=== PATIENT | female | born 1980 | race Caucasian/White ===

== ENCOUNTER → 2018-10-28 | Outpatient (CLI) | payer OTHER ==
[~2018-10-28] MED LIST: DCS100C PO; HYDR-34 PO; HYDR-3720 PO; IBP800T PO; PHEN37.555 PO; PNT40TEC PO; PRD20T PO
[2018-10-28 08:18] LABS: BASOPHILS % (AUTO) 0 % (0-10); EOSINOPHILS # (AUTO) 0.1 10^3/uL (0.0-0.3); EOSINOPHILS % (AUTO) 2 % (0-10); HEMATOCRIT 38 % (35-52); LYMPHOCYTES # (AUTO) 1.4 X 10^3 (1.0-4.0); LYMPHOCYTES % (AUTO) 30 % (12-44); MEAN CORPUSCULAR HEMOGLOBIN 31 PG (25-34); MEAN CORPUSCULAR HGB CONC 34 G/DL (32-36); MEAN CORPUSCULAR VOLUME 91 FL (80-99); MEAN PLATELET VOLUME 9.7 FL (7.4-10.4); MONOCYTES # (AUTO) 0.3 X 10^3 (0.0-1.0); MONOCYTES % (AUTO) 6 % (0-12); NEUTROPHILS # (AUTO) 2.9 X 10^3 (1.8-7.8); NEUTROPHILS % (AUTO) 61 % (42-75); PLATELET COUNT 298 10^3/uL (130-400); RED BLOOD COUNT 4.17 10^6/uL (4.35-5.85); RED CELL DISTRIBUTION WIDTH 12.6 % (10.0-14.5); WHITE BLOOD COUNT 4.8 10^3/uL (4.3-11.0)
[2018-10-28 08:36] LABS: ALANINE AMINOTRANSFERASE 8 U/L (0-55); ALBUMIN 4.3 GM/DL (3.2-4.5); ALKALINE PHOSPHATASE 112 U/L (40-136); BILIRUBIN,TOTAL 0.6 MG/DL (0.1-1.0); BUN/CREATININE RATIO 15; CALCIUM 9.6 MG/DL (8.5-10.1); CARBON DIOXIDE 23 MMOL/L (21-32); CHLORIDE 105 MMOL/L (98-107); CHOLESTEROL 280 MG/DL (< 200); CREATININE SERUM 0.67 MG/DL (0.60-1.30); GFR ESTIMATED > 60; GLUCOSE 98 MG/DL (70-105); HDL CHOLESTEROL 58 MG/DL (40-60); SODIUM 138 MMOL/L (135-145); TOTAL PROTEIN 7.4 GM/DL (6.4-8.2); TRIGLYCERIDES 174 MG/DL (<150); VLDL CHOLESTEROL 35 MG/DL (5-40)
== END ==
LOC: LAB 08:03
PROVIDERS: ATTEND Nurse Practitioner Family
DX: Z00.00 Encounter for general adult medical examination without abnormal findings (principal); E78.5 Hyperlipidemia, unspecified
CPT/HCPCS: 36415; 80053; 80061; 85025

== ENCOUNTER 2019-06-25 10:06 | Outpatient (CLI) | payer OTHER ==
[~2019-06-25] VITALS: Ht 157.5 cm; Wt 76.7 kg
[2019-06-25] MEDS ORDERED: HYDR-3812 PO (10:22)
[2019-06-25] MEDS ORDERED: PREG100C PO (10:22)
[2019-06-25 10:26] VITALS: BP 126/83
== END 2019-06-25 14:53 | disposition home or self-care (01) ==
LOC: PREOP 10:06
PROVIDERS: ATTEND Podiatrist
CPT/HCPCS: 87081

== ENCOUNTER 2019-07-01 05:57 | Inpatient (IN) | payer BC, OTHER ==
[~2019-07-01] VITALS: Ht 157.5 cm; Wt 75.4 kg
[2019-07-01] VITALS (10 sets, daily range): BP systolic 103–135; BP diastolic 47–84
[~2019-07-01 05:57] MED LIST changes: +HYDR-3812 PO; +PREG100C PO
--- OUTSIDE RECORDS SUMMARY | 2019-07-01 06:04 | XMS REPORT | CCD ---
Author Author [facility] Address [address] [place] [address] Phone Care Team Providers Care Pleat Taper Name Role Phone PP Unavailable CCM Unavailable Summary Purpose Interface Exchange Insurance Providers Payer name Policy type / Coverage type Covered green party ID Effective Begin Date Effective End Date [employer] [id number] 2018 Unknown Family history Father Diagnosis Age At Onset Diabetes Unknown Hyperlipidemia Unknown Hypertension Unknown Heart Attack Unknown Social History Social History Element Codes Description Effective Dates Marital status Unknown CJ 06/12/2016 Number of children Unknown 3 06/12/[address]: 819522206 Never smoker 06/12/[address]: 902913907 Never drinks alcohol 06/12/2016 Allergies, Adverse Reactions, Alerts Substance Reaction Codes Entered Date Inactivated Date Status * NO KNOWN DRUG ALLERGIES Unknown 06/12/2016 No Inactive Date Active Past Medical History Illness Codes Condition Status Onset Date Resolved Date 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.2 ICD-10: K12.0 Active 02/23/2019 Unknown Chronic pain syndrome ICD- 9: 338.4 ICD-10: G89.4 Active 04/24/2017 Unknown Overweight ICD-9: 278.02 ICD-10: E66.3 Active 11/27/2018 Unknown Menopausal and female climacteric states ICD-9: 627.2 ICD-10: N95.1 Active 04/24/2017 Unknown Generalized anxiety disorder ICD-9: 300.02 ICD-10: F41.1 Active 08/23/2016 Unknown Major depressive disorder, single episode, moderate ICD-9: 296.22 ICD-10: F32.1 Active 06/11/2016 Unknown Cellulitis of right lower limb ICD-9: 682.7 ICD-10: L03.115 Active 05/27/2017 Unknown Encounter for gynecological examination (general) (routine) without abnormal findings ICD-9: V72.31 ICD-10: Z01.419 Active 03/27/2017 Unknown Other fatigue ICD-9: 780.79 ICD-10: R53.83 Active 08/23/2016 Unknown Problems Condition Codes Effective Dates Condition Status 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.2 ICD-10: K12.0 02/23/2019 Active Chronic pain syndrome ICD- 9: 338.4 ICD-10: G89.4 04/24/2017 Active Overweight ICD-9: 278.02 ICD-10: E66.3 11/27/2018 Active Menopausal and female climacteric states ICD-9: 627.2 ICD-10: N95.1 04/24/2017 Active Generalized anxiety disorder ICD-9: 300.02 ICD-10: F41.1 08/23/2016 Active Major depressive disorder, single episode, moderate ICD-9: 296.22 ICD-10: F32.1 06/11/2016 Active Cellulitis of right lower limb ICD-9: 682.7 ICD-10: L03.115 05/27/2017 Active Encounter for gynecological examination (general) (routine) without abnormal findings ICD-9: V72.31 ICD-10: Z01.419 03/27/2017 Active Other fatigue ICD-9: 780.79 ICD-10: R53.83 08/23/2016 Active Medications Medication Codes Instructions Start Date Stop Date Status Fill Instructions hydrocodone 5 mg-acetaminophen 325 mg tablet RxNorm: 101198 1-1.5 Tablet(s) PO QID as needed 06/19/2019 07/18/2019 Active Lyrica 100 mg capsule RxNorm: 911826 1 Capsule(s) PO BID as needed 06/11/2019 08/09/2019 Active ibuprofen 800 mg tablet RxNorm: 148102 TAKE 1 TABLET BY MOUTH THREE TIMES DAILY NEEDED 06/10/2019 No Stop Date Active hydrocodone 5 mg-acetaminophen 325 mg tablet RxNorm: 447143 1-1.5 Tablet(s) PO QID as needed 05/20/2019 06/17/2019 Inactive cyclobenzaprine 5 mg tablet RxNorm: 343491 TAKE 1 TABLET BY MOUTH THREE TIMES DAILY NEEDED FOR MUSCLE SPASM 05/18/2019 No Stop Date Active cyclobenzaprine 5 mg tablet RxNorm: 272777 TAKE 1 TABLET BY MOUTH THREE TIMES DAILY NEEDED FOR MUSCLE SPASM 04/24/2019 05/17/2019 Inactive hydrocodone 5 mg-acetaminophen 325 mg tablet RxNorm: 055937 1-1.5 Tablet(s) PO QID as needed 04/21/2019 05/18/2019 Inactive Lexapro 10 mg tablet RxNorm: 813166 TAKE 1 TABLET BY MOUTH ONCE DAILY 03/30/2019 No Stop Date Active hydrocodone 5 mg-acetaminophen 325 mg tablet RxNorm: 162659 1-1.5 Tablet(s) PO QID as needed 03/23/2019 04/20/2019 Inactive prednisolone 15 mg/5 mL oral solution RxNorm: 710700 5 Milliliter(s) PO BID 02/23/2019 02/27/2019 Inactive valacyclovir 1 gram tablet RxNorm: 287214 1 Tablet(s) PO TID 02/23/2019 03/01/2019 Inactive hydrocodone 5 mg-acetaminophen 325 mg tablet RxNorm: 859610 1-1.5 Tablet(s) PO QID as needed 02/23/2019 03/22/2019 Inactive hydrocodone 5 mg-acetaminophen 325 mg tablet RxNorm: 434763 1-1.5 Tablet(s) PO QID as needed 01/28/2019 02/26/2019 Inactive hydrocodone 5 mg-acetaminophen 325 mg tablet RxNorm: 437252 1-1.5 Tablet(s) PO QID as needed 01/01/2019 01/27/2019 Inactive cyclobenzaprine 5 mg tablet RxNorm: 494274 TAKE ONE TABLET BY MOUTH THREE TIMES DAILY NEEDED FOR MUSCLE SPASM 12/16/2018 04/23/2019 Inactive phentermine 37.5 mg tablet RxNorm: 400317 1 Tablet(s) PO daily 11/27/2018 No Stop Date Active Lexapro 10 mg tablet RxNorm: 053439 TAKE 1 TABLET BY MOUTH ONCE DAILY 11/26/2018 03/29/2019 Inactive cyclobenzaprine 5 mg tablet RxNorm: 928550 TAKE ONE TABLET BY MOUTH THREE TIMES DAILY NEEDED FOR MUSCLE SPASM 11/12/2018 12/15/2018 Inactive hydrocodone 5 mg-acetaminophen 325 mg tablet RxNorm: 397722 1-1.5 Tablet(s) PO QID as needed 11/06/2018 12/05/2018 Inactive Lyrica 100 mg capsule RxNorm: 278562 1 Capsule(s) PO BID as needed 10/31/2018 01/27/2019 Inactive pravastatin 20 mg tablet RxNorm: 201353 1 Tablet(s) PO QPM 10/28/2018 02/24/2019 Inactive pravastatin 20 mg tablet RxNorm: 111625 1 Tablet(s) PO QPM 10/28/2018 10/27/2018 Inactive EEMT 1.25 mg-2.5 mg tablet RxNorm: 375584 1 Tablet(s) PO daily 10/09/2018 01/06/2019 Inactive norethindrone acetate 1 mg-ethinyl estradiol 20 mcg tablet RxNorm: 2326176 1 Tablet(s) PO daily 10/09/2018 10/03/2019 Active hydrocodone 5 mg-acetaminophen 325 mg tablet RxNorm: 879986 1-1.5 Tablet(s) PO QID as needed 10/09/2018 11/05/2018 Inactive hydrocodone 5 mg-acetaminophen 325 mg tablet RxNorm: 075269 1-1.5 Tablet(s) PO QID as needed 09/11/2018 10/08/2018 Inactive phentermine 37.5 mg tablet RxNorm: 060733 1 Tablet(s) PO daily 08/29/2018 11/26/2018 Inactive cyclobenzaprine 5 mg tablet RxNorm: 215635 TAKE ONE TABLET BY MOUTH THREE TIMES DAILY NEEDED FOR MUSCLE SPASM 08/27/2018 11/11/2018 Inactive hydrocodone 5 mg-acetaminophen 325 mg tablet RxNorm: 690397 1-1.5 Tablet(s) PO QID as needed 08/14/2018 09/10/2018 Inactive Lexapro 10 mg tablet RxNorm: 302582 1 Tablet(s) PO daily 07/18/2018 08/16/2018 Inactive diazepam 10 mg tablet RxNorm: 822965 1 Tablet(s) PO TID as needed anxiety 07/11/2018 07/14/2018 Inactive Zorvolex 35 mg capsule RxNorm: 4718000 1 Capsule(s) PO TID 06/18/2018 No Stop Date Active hydrocodone 5 mg-acetaminophen 325 mg tablet RxNorm: 345457 1-1.5 Tablet(s) PO QID as needed 06/18/2018 07/17/2018 Inactive cyclobenzaprine 5 mg tablet RxNorm: 360120 TAKE ONE TABLET BY MOUTH THREE TIMES DAILY NEEDED FOR MUSCLE SPASM 06/04/2018 08/26/2018 Inactive hydrocodone 5 mg-acetaminophen 325 mg tablet RxNorm: 251922 1-1.5 Tablet(s) PO QID as needed 05/26/2018 06/17/2018 Inactive cyclobenzaprine 5 mg tablet RxNorm: 590301 TAKE ONE TABLET BY MOUTH THREE TIMES DAILY NEEDED FOR MUSCLE SPASM 05/07/2018 06/03/2018 Inactive hydrocodone 5 mg-acetaminophen 325 mg tablet RxNorm: 995517 1-1.5 Tablet(s) PO QID as needed 04/28/2018 05/25/2018 Inactive ibuprofen 800 mg tablet RxNorm: 053257 TAKE ONE TABLET BY MOUTH THREE TIMES DAILY NEEDED 04/28/2018 06/09/2019 Inactive diazepam 10 mg tablet RxNorm: 772925 1 Tablet(s) PO TID as needed anxiety 04/22/2018 06/19/2018 Inactive hydrocodone 5 mg-acetaminophen 325 mg tablet RxNorm: 612513 1-1.5 Tablet(s) PO QID as needed 03/25/2018 04/23/2018 Inactive cyclobenzaprine 5 mg tablet RxNorm: 322776 TAKE ONE TABLET BY MOUTH THREE TIMES DAILY NEEDED FOR MUSCLE SPASM 03/17/2018 05/06/2018 Inactive hydrocodone 5 mg-acetaminophen 325 mg tablet RxNorm: 866683 1-1.5 Tablet(s) PO QID as needed 03/02/2018 03/24/2018 Inactive phentermine 37.5 mg tablet RxNorm: 479015 1 Tablet(s) PO daily 03/02/2018 08/28/2018 Inactive hydrocodone 5 mg-acetaminophen 325 mg tablet RxNorm: 408173 1-1.5 Tablet(s) PO QID as needed 02/03/2018 03/01/2018 Inactive diazepam 10 mg tablet RxNorm: 195182 1 Tablet(s) PO TID as needed anxiety 01/01/2018 02/28/2018 Inactive hydrocodone 5 mg-acetaminophen 325 mg tablet RxNorm: 974719 1-1.5 Tablet(s) PO QID as needed 12/09/2017 01/07/2018 Inactive ibuprofen 800 mg tablet RxNorm: 034571 1 Tablet(s) PO TID as needed 12/09/2017 01/07/2018 Inactive Lyrica 100 mg capsule RxNorm: 640945 1 Capsule(s) PO BID as needed 12/09/2017 03/07/2018 Inactive cyclobenzaprine 5 mg tablet RxNorm: 085718 TAKE ONE TABLET BY MOUTH THREE TIMES DAILY NEEDED FOR MUSCLE SPASM 12/03/2017 03/16/2018 Inactive hydrocodone 5 mg-acetaminophen 325 mg tablet RxNorm: 580850 1-1.5 Tablet(s) PO QID as needed 10/21/2017 11/19/2017 Inactive hydrocodone 7.5 mg-acetaminophen 325 mg tablet RxNorm: 357856 1 Tablet(s) PO QID as needed 09/26/2017 10/20/2017 Inactive phentermine 37.5 mg tablet RxNorm: 160049 1 Tablet(s) PO daily 09/26/2017 10/01/2017 Inactive Lyrica 100 mg capsule RxNorm: 198439 1 Capsule(s) PO BID as needed 09/12/2017 12/08/2017 Inactive hydrocodone 7.5 mg-acetaminophen 325 mg tablet RxNorm: 701138 1 Tablet(s) PO QID as needed 08/27/2017 09/23/2017 Inactive Belviq XR 20 mg tablet,extended release RxNorm: 3344906 1 Tablet(s) PO daily 08/27/2017 09/23/2017 Inactive cyclobenzaprine 5 mg tablet RxNorm: 564745 1 Tablet(s) PO TID as needed muscle spasms 08/19/2017 08/23/2017 Inactive hydrocodone 7.5 mg-acetaminophen 325 mg tablet RxNorm: 932207 1 Tablet(s) PO QID as needed 08/02/2017 08/26/2017 Inactive hydrocodone 7.5 mg-acetaminophen 325 mg tablet RxNorm: 396021 1 Tablet(s) PO TID as needed 08/02/2017 08/01/2017 Inactive diazepam 10 mg tablet RxNorm: 031720 1 Tablet(s) PO TID as needed anxiety 07/24/2017 02/02/2018 Inactive hydrocodone 7.5 mg-acetaminophen 325 mg tablet RxNorm: 946211 1 Tablet(s) PO TID as needed 07/11/2017 08/01/2017 Inactive hydrocodone 5 mg-acetaminophen 325 mg tablet RxNorm: 836122 1 Tablet(s) PO TID 06/24/2017 07/30/2017 Inactive Lyrica 100 mg capsule RxNorm: 822118 1 Capsule(s) PO BID as needed 06/24/2017 06/10/2019 Inactive prednisone 10 mg tablet RxNorm: 324700 1 Tablet(s) PO daily 06/18/2017 06/17/2017 Inactive 6-5-4-3-2-1 then stop prednisone 10 mg tablet RxNorm: 754355 1 Tablet(s) PO daily 06/18/2017 08/25/2017 Inactive 6-5-4-3-2-1 then stop Bactrim DS 800 mg-160 mg tablet RxNorm: 995700 1 Tablet(s) PO BID 06/11/2017 06/14/2017 Inactive Bactrim DS 800 mg-160 mg tablet RxNorm: 801693 1 Tablet(s) PO BID 06/03/2017 06/10/2017 Inactive mupirocin 2 % topical ointment RxNorm: 187914 1 Application TOP BID 06/03/2017 08/25/2017 Inactive Lyrica 100 mg capsule RxNorm: 067946 1 Capsule(s) PO BID as needed 05/27/2017 06/23/2017 Inactive Keflex 500 mg capsule RxNorm: 505138 1 Capsule(s) PO TID 05/27/2017 06/02/2017 Inactive Lexapro 10 mg tablet RxNorm: 449605 1 Tablet(s) PO daily 05/27/2017 08/25/2017 Inactive hydrocodone 5 mg-acetaminophen 325 mg tablet RxNorm: 216916 1 Tablet(s) PO TID 05/27/2017 06/23/2017 Inactive hydrocodone 7.5 mg-acetaminophen 325 mg tablet RxNorm: 976132 1 Tablet(s) PO TID as needed 05/13/2017 05/25/2017 Inactive hydrocodone 7.5 mg-acetaminophen 325 mg tablet RxNorm: 833928 1 Tablet(s) PO TID as needed 05/13/2017 05/12/2017 Inactive cyclobenzaprine 5 mg tablet RxNorm: 523155 TAKE ONE TABLET BY MOUTH THREE TIMES DAILY NEEDED FOR MUSCLE SPASM 05/01/2017 05/05/2017 Inactive hydrocodone 5 mg-acetaminophen 325 mg tablet RxNorm: 256589 1 Tablet(s) PO TID as needed 04/24/2017 05/12/2017 Inactive cyclobenzaprine 5 mg tablet RxNorm: 349493 1 Tablet(s) PO TID as needed muscle spasms 04/24/2017 04/28/2017 Inactive diazepam 10 mg tablet RxNorm: 113893 1 Tablet(s) PO TID as needed anxiety 02/22/2017 04/19/2017 Inactive norethindrone acetate 1 mg-ethinyl estradiol 20 mcg tablet RxNorm: 9999469 1 Tablet(s) PO daily 12/18/2016 07/15/2017 Inactive EEMT 1.25 mg-2.5 mg tablet RxNorm: 251702 1 Tablet(s) PO daily 12/06/2016 03/05/2017 Inactive EEMT 1.25 mg-2.5 mg tablet RxNorm: 249824 1 Tablet(s) PO daily 12/06/2016 12/05/2016 Inactive Lexapro 10 mg tablet RxNorm: 242235 1 Tablet(s) PO daily 12/06/2016 05/04/2017 Inactive diazepam 10 mg tablet RxNorm: 337083 1 Tablet(s) PO TID 11/09/2016 12/07/2016 Inactive phentermine 37.5 mg tablet RxNorm: 033193 1 Tablet(s) PO daily 10/25/2016 08/23/2017 Inactive EEMT 1.25 mg-2.5 mg tablet RxNorm: 785403 1 Tablet(s) PO daily 10/25/2016 12/05/2016 Inactive phentermine 37.5 mg tablet RxNorm: 265888 1 Tablet(s) PO daily 09/20/2016 10/24/2016 Inactive Lexapro 10 mg tablet RxNorm: 658677 1 Tablet(s) PO daily 07/10/2016 12/05/2016 Inactive Lexapro 10 mg tablet RxNorm: 081608 1 Tablet(s) PO daily 06/12/2016 07/09/2016 Inactive norethindrone acetate 1 mg-ethinyl estradiol 20 mcg tablet RxNorm: 8611218 1 Tablet(s) PO daily 06/12/2016 12/17/2016 Inactive hydrocodone 10 mg-acetaminophen 325 mg tablet RxNorm: 666489 1 Tablet(s) PO TID No Start Date 05/12/2017 Inactive phentermine 37.5 mg tablet RxNorm: 956726 1 Tablet(s) PO daily No Start Date 09/19/2016 Inactive norethindrone acetate 1 mg-ethinyl estradiol 20 mcg tablet RxNorm: 0773738 1 Tablet(s) PO daily No Start Date 06/11/2016 Inactive EEMT 1.25 mg-2.5 mg tablet RxNorm: 835104 1 Tablet(s) PO daily No Start Date 10/24/2016 Inactive Medication Administered No Medication Administered data Immunizations No Immunization data Assessments Condition Codes Effective Dates Recurrent oral aphthae ICD-10: K12.0 ICD-9: 528.2 02/23/2019 Chronic pain syndrome ICD-10: G89.4 ICD-9: 338.4 12/08/2018 Overweight ICD-10: E66.3 ICD-9: 278.02 11/27/2018 Menopausal and female climacteric states ICD-10: N95.1 ICD-9: 627.2 10/09/2018 Generalized anxiety disorder ICD-10: F41.1 ICD-9: 300.02 07/18/2018 Major depressive disorder, single episode, moderate ICD-10: F32.1 ICD-9: 296.22 07/18/2018 Cellulitis of right lower limb ICD-10: L03.115 ICD-9: 682.7 06/03/2017 Encounter for gynecological examination (general) (routine) without abnormal findings ICD-10: Z01.419 ICD-9: V72.31 03/27/2017 Other fatigue ICD-10: R53.83 ICD-9: 780.79 08/24/2016 Reason For Visit Reason For Visit Effective Dates Notes oral lesion 02/23/2019 medication follow up 12/08/2018 hydrocodone medication follow up 10/09/2018 anxiety 07/18/2018 medication follow up 06/18/2018 hydrocodone ankle pain 02/28/2018 medication follow up 12/09/2017 hydrocodone medication follow up 10/21/2017 medication follow up 08/27/2017 medication follow up 05/27/2017 medication follow up 04/24/2017 well woman exam (18-39 years) 03/27/2017 medication follow up 10/25/2016 weight gain/obesity 08/24/2016 depression 06/12/2016 Results No Results data Review of Systems System Result Effective Dates Constitutional No recent illness 02/23/2019 Constitutional No chills 02/23/2019 Constitutional No fever 02/23/2019 Constitutional No diaphoresis 02/23/2019 Eyes No eye erythema 02/23/2019 Ears/Nose/Throat/Neck No nasal discharge 02/23/2019 Cardiovascular No chest pain/pressure 02/23/2019 Cardiovascular No dyspnea 02/23/2019 Respiratory No cough 02/23/2019 Dermatologic No rash 02/23/2019 Ears/Nose/Throat/Neck oral lesion 02/23/2019 Neurologic No alteration of consciousness 02/23/2019 Neurologic No mental status change 02/23/2019 Constitutional No recent illness 12/08/2018 Constitutional No chills 12/08/2018 Constitutional No diaphoresis 12/08/2018 Constitutional No fever 12/08/2018 Constitutional No malaise 12/08/2018 Eyes No eye erythema 12/08/2018 Ears/Nose/Throat/Neck No nasal allergies 12/08/2018 Ears/Nose/Throat/Neck No nasal discharge 12/08/2018 Cardiovascular No chest pain/pressure 12/08/2018 Cardiovascular No dyspnea 12/08/2018 Respiratory No chest congestion 12/08/2018 Respiratory No cough 12/08/2018 Respiratory No dyspnea 12/08/2018 Gastrointestinal No abdominal pain 12/08/2018 Gastrointestinal No constipation 12/08/2018 Gastrointestinal No diarrhea 12/08/2018 Musculoskeletal arthralgia(s) 12/08/2018 Dermatologic No rash 12/08/2018 Neurologic No alteration of consciousness 12/08/2018 Neurologic No mental status change 12/08/2018 Constitutional No recent illness 10/09/2018 Constitutional No chills 10/09/2018 Constitutional No diaphoresis 10/09/2018 Constitutional No fever 10/09/2018 Constitutional night sweats 10/09/2018 Eyes No eye erythema 10/09/2018 Ears/Nose/Throat/Neck No nasal discharge 10/09/2018 Cardiovascular No chest pain/pressure 10/09/2018 Cardiovascular No dyspnea 10/09/2018 Respiratory No cough 10/09/2018 Gastrointestinal No abdominal pain 10/09/2018 Genitourinary/Nephrology menopausal symptoms 10/09/2018 Musculoskeletal joint complaint 10/09/2018 Dermatologic No rash 10/09/2018 Neurologic No alteration of consciousness 10/09/2018 Neurologic No mental status change 10/09/2018 Constitutional No recent illness 07/18/2018 Constitutional No chills 07/18/2018 Constitutional No diaphoresis 07/18/2018 Constitutional No fever 07/18/2018 Eyes No eye erythema 07/18/2018 Ears/Nose/Throat/Neck No nasal discharge 07/18/2018 Cardiovascular No chest pain/pressure 07/18/2018 Respiratory No cough 07/18/2018 Respiratory No chest congestion 07/18/2018 Gastrointestinal No abdominal pain 07/18/2018 Musculoskeletal joint complaint 07/18/2018 Musculoskeletal arthralgia(s) 07/18/2018 Dermatologic No rash 07/18/2018 Neurologic No alteration of consciousness 07/18/2018 Neurologic No mental status change 07/18/2018 Constitutional No recent illness 06/18/2018 Constitutional No chills 06/18/2018 Constitutional No diaphoresis 06/18/2018 Constitutional No fever 06/18/2018 Constitutional No malaise 06/18/2018 Eyes No eye erythema 06/18/2018 Ears/Nose/Throat/Neck No nasal allergies 06/18/2018 Ears/Nose/Throat/Neck No nasal discharge 06/18/2018 Cardiovascular No chest pain/pressure 06/18/2018 Cardiovascular No dyspnea 06/18/2018 Respiratory No chest congestion 06/18/2018 Respiratory No cough 06/18/2018 Respiratory No dyspnea 06/18/2018 Gastrointestinal No abdominal pain 06/18/2018 Gastrointestinal No constipation 06/18/2018 Gastrointestinal No diarrhea 06/18/2018 Musculoskeletal arthralgia(s) 06/18/2018 Dermatologic No rash 06/18/2018 Neurologic No alteration of consciousness 06/18/2018 Neurologic No mental status change 06/18/2018 Constitutional No recent illness 02/28/2018 Constitutional No chills 02/28/2018 Constitutional No diaphoresis 02/28/2018 Constitutional No fever 02/28/2018 Constitutional No malaise 02/28/2018 Eyes No eye erythema 02/28/2018 Ears/Nose/Throat/Neck No nasal allergies 02/28/2018 Ears/Nose/Throat/Neck No nasal discharge 02/28/2018 Cardiovascular No chest pain/pressure 02/28/2018 Cardiovascular No dyspnea 02/28/2018 Respiratory No chest congestion 02/28/2018 Respiratory No cough 02/28/2018 Respiratory No dyspnea 02/28/2018 Gastrointestinal No abdominal pain 02/28/2018 Gastrointestinal No constipation 02/28/2018 Gastrointestinal No diarrhea 02/28/2018 Musculoskeletal arthralgia(s) 02/28/2018 Dermatologic No rash 02/28/2018 Neurologic No alteration of consciousness 02/28/2018 Neurologic No mental status change 02/28/2018 Constitutional No recent illness 12/09/2017 Constitutional No chills 12/09/2017 Constitutional No diaphoresis 12/09/2017 Constitutional No fever 12/09/2017 Constitutional No malaise 12/09/2017 Eyes No eye erythema 12/09/2017 Ears/Nose/Throat/Neck No nasal allergies 12/09/2017 Ears/Nose/Throat/Neck No nasal discharge 12/09/2017 Cardiovascular No chest pain/pressure 12/09/2017 Cardiovascular No dyspnea 12/09/2017 Respiratory No chest congestion 12/09/2017 Respiratory No cough 12/09/2017 Respiratory No dyspnea 12/09/2017 Gastrointestinal No abdominal pain 12/09/2017 Gastrointestinal No constipation 12/09/2017 Gastrointestinal No diarrhea 12/09/2017 Musculoskeletal arthralgia(s) 12/09/2017 Dermatologic No rash 12/09/2017 Neurologic No alteration of consciousness 12/09/2017 Neurologic No mental status change 12/09/2017 Constitutional No recent illness 10/21/2017 Constitutional No chills 10/21/2017 Constitutional No diaphoresis 10/21/2017 Constitutional No fever 10/21/2017 Constitutional No malaise 10/21/2017 Eyes No eye erythema 10/21/2017 Ears/Nose/Throat/Neck No nasal allergies 10/21/2017 Ears/Nose/Throat/Neck No nasal discharge 10/21/2017 Cardiovascular No chest pain/pressure 10/21/2017 Cardiovascular No dyspnea 10/21/2017 Respiratory No chest congestion 10/21/2017 Respiratory No cough 10/21/2017 Respiratory No dyspnea 10/21/2017 Gastrointestinal No abdominal pain 10/21/2017 Gastrointestinal No constipation 10/21/2017 Gastrointestinal No diarrhea 10/21/2017 Musculoskeletal arthralgia(s) 10/21/2017 Dermatologic No rash 10/21/2017 Neurologic No alteration of consciousness 10/21/2017 Neurologic No mental status change 10/21/2017 Constitutional No fatigue 10/21/2017 Constitutional No recent illness 08/27/2017 Constitutional No chills 08/27/2017 Constitutional No diaphoresis 08/27/2017 Constitutional No fever 08/27/2017 Eyes No eye erythema 08/27/2017 Ears/Nose/Throat/Neck No nasal allergies 08/27/2017 Ears/Nose/Throat/Neck No nasal discharge 08/27/2017 Cardiovascular No chest pain/pressure 08/27/2017 Cardiovascular No dyspnea 08/27/2017 Respiratory No chest congestion 08/27/2017 Respiratory No cough 08/27/2017 Respiratory No dyspnea 08/27/2017 Gastrointestinal No abdominal pain 08/27/2017 Musculoskeletal arthralgia(s) 08/27/2017 Neurologic No alteration of consciousness 08/27/2017 Neurologic No mental status change 08/27/2017 Constitutional No malaise 08/27/2017 Constitutional No fatigue 08/27/2017 Constitutional No night sweats 08/27/2017 Gastrointestinal No constipation 08/27/2017 Gastrointestinal No diarrhea 08/27/2017 Dermatologic No rash 08/27/2017 Constitutional No recent illness 05/27/2017 Constitutional No chills 05/27/2017 Constitutional No diaphoresis 05/27/2017 Constitutional No fever 05/27/2017 Eyes No eye erythema 05/27/2017 Ears/Nose/Throat/Neck No nasal allergies 05/27/2017 Ears/Nose/Throat/Neck No nasal discharge 05/27/2017 Cardiovascular No chest pain/pressure 05/27/2017 Cardiovascular No dyspnea 05/27/2017 Respiratory No chest congestion 05/27/2017 Respiratory No cough 05/27/2017 Respiratory No dyspnea 05/27/2017 Gastrointestinal No abdominal pain 05/27/2017 Musculoskeletal arthralgia(s) 05/27/2017 Neurologic No alteration of consciousness 05/27/2017 Neurologic No mental status change 05/27/2017 Dermatologic erythema 05/27/2017 Constitutional No recent illness 04/24/2017 Constitutional No chills 04/24/2017 Constitutional No diaphoresis 04/24/2017 Constitutional No fever 04/24/2017 Eyes No eye erythema 04/24/2017 Ears/Nose/Throat/Neck No nasal allergies 04/24/2017 Ears/Nose/Throat/Neck No nasal discharge 04/24/2017 Cardiovascular No chest pain/pressure 04/24/2017 Cardiovascular No dyspnea 04/24/2017 Respiratory No cough 04/24/2017 Respiratory No dyspnea 04/24/2017 Respiratory No chest congestion 04/24/2017 Gastrointestinal No abdominal pain 04/24/2017 Musculoskeletal arthralgia(s) 04/24/2017 Dermatologic No rash 04/24/2017 Neurologic No alteration of consciousness 04/24/2017 Neurologic No mental status change 04/24/2017 Constitutional No recent illness 03/27/2017 Constitutional No chills 03/27/2017 Constitutional No diaphoresis 03/27/2017 Constitutional No fever 03/27/2017 Eyes No eye erythema 03/27/2017 Ears/Nose/Throat/Neck No nasal allergies 03/27/2017 Ears/Nose/Throat/Neck No nasal discharge 03/27/2017 Cardiovascular No chest pain/pressure 03/27/2017 Respiratory No dyspnea 03/27/2017 Gastrointestinal No abdominal pain 03/27/2017 Genitourinary/Nephrology No breast complaint 03/27/2017 Genitourinary/Nephrology No dysuria 03/27/2017 Dermatologic No rash 03/27/2017 Neurologic No alteration of consciousness 03/27/2017 Neurologic No mental status change 03/27/2017 Constitutional No recent illness 10/25/2016 Constitutional No fever 10/25/2016 Eyes No eye erythema 10/25/2016 Ears/Nose/Throat/Neck No nasal allergies 10/25/2016 Ears/Nose/Throat/Neck No nasal discharge 10/25/2016 Cardiovascular No chest pain/pressure 10/25/2016 Cardiovascular No dyspnea 10/25/2016 Respiratory No chest congestion 10/25/2016 Respiratory No cough 10/25/2016 Respiratory No dyspnea 10/25/2016 Dermatologic No rash 10/25/2016 Neurologic No alteration of consciousness 10/25/2016 Neurologic No mental status change 10/25/2016 Constitutional No recent illness 08/24/2016 Constitutional No chills 08/24/2016 Constitutional No diaphoresis 08/24/2016 Constitutional No fever 08/24/2016 Eyes No eye erythema 08/24/2016 Ears/Nose/Throat/Neck No nasal allergies 08/24/2016 Ears/Nose/Throat/Neck No nasal discharge 08/24/2016 Ears/Nose/Throat/Neck No otalgia 08/24/2016 Ears/Nose/Throat/Neck No postnasal drip 08/24/2016 Ears/Nose/Throat/Neck No sinus congestion 08/24/2016 Cardiovascular No chest pain/pressure 08/24/2016 Cardiovascular No dyspnea 08/24/2016 Cardiovascular No edema 08/24/2016 Respiratory No chest congestion 08/24/2016 Respiratory No cough 08/24/2016 Respiratory No dyspnea 08/24/2016 Gastrointestinal No abdominal pain 08/24/2016 Gastrointestinal No constipation 08/24/2016 Gastrointestinal No diarrhea 08/24/2016 Gastrointestinal No nausea 08/24/2016 Gastrointestinal No vomiting 08/24/2016 Musculoskeletal No joint complaint 08/24/2016 Dermatologic No rash 08/24/2016 Dermatologic No sores 08/24/2016 Neurologic No alteration of consciousness 08/24/2016 Neurologic No mental status change 08/24/2016 Psychiatric anxiety 08/24/2016 Psychiatric depression 08/24/2016 Constitutional No recent illness 06/12/2016 Constitutional No chills 06/12/2016 Constitutional No diaphoresis 06/12/2016 Constitutional No fever 06/12/2016 Eyes No eye erythema 06/12/2016 Ears/Nose/Throat/Neck No nasal allergies 06/12/2016 Ears/Nose/Throat/Neck No nasal discharge 06/12/2016 Ears/Nose/Throat/Neck No otalgia 06/12/2016 Ears/Nose/Throat/Neck No postnasal drip 06/12/2016 Ears/Nose/Throat/Neck No sinus congestion 06/12/2016 Cardiovascular No chest pain/pressure 06/12/2016 Cardiovascular No dyspnea 06/12/2016 Cardiovascular No edema 06/12/2016 Respiratory No chest congestion 06/12/2016 Respiratory No cough 06/12/2016 Respiratory No dyspnea 06/12/2016 Gastrointestinal No abdominal pain 06/12/2016 Gastrointestinal No constipation 06/12/2016 Gastrointestinal No diarrhea 06/12/2016 Gastrointestinal No nausea 06/12/2016 Gastrointestinal No vomiting 06/12/2016 Musculoskeletal No joint complaint 06/12/2016 Dermatologic No rash 06/12/2016 Dermatologic No sores 06/12/2016 Neurologic No alteration of consciousness 06/12/2016 Neurologic No mental status change 06/12/2016 Psychiatric anxiety 06/12/2016 Psychiatric depression 06/12/2016 Physical Exam Exam Name System Name Item Name Status Result Effective Dates Notes Full Exam - ENT Constitutional general appearance Overall: well nourished 02/23/2019 None Full Exam - ENT Constitutional general appearance Overall: well developed 02/23/2019 None Full Exam - ENT Constitutional general appearance Overall: in no acute distress 02/23/2019 None Full Exam - ENT Ears/Nose/Throat lips/teeth/gingiva Overall: benign lips 02/23/2019 None Full Exam - ENT Ears/Nose/Throat oropharynx Oral mucosa: aphthous ulcer 02/23/2019 right cheek Full Exam - ENT Respiratory inspection Overall: no retractions 02/23/2019 None Full Exam - ENT Respiratory inspection Overall: normal rate 02/23/2019 None Full Exam - ENT Musculoskeletal gait and station Overall: normal gait 02/23/2019 None Full Exam - ENT Musculoskeletal gait and station Overall: normal station 02/23/2019 None Full Exam - ENT Musculoskeletal head and neck Overall: head atraumatic 02/23/2019 None Full Exam - ENT Neurologic mood and affect Overall: normal affect 02/23/2019 None Full Exam - ENT Neurologic mood and affect Overall: normal mood 02/23/2019 None Full Exam - ENT Neurologic orientation Overall: oriented to person, place and time 02/23/2019 None Full Exam - ENT Neurologic cranial nerves/coordination Overall: cranial nerves 2-12 grossly intact 02/23/2019 None Full Exam - General 1994 Constitutional general appearance Overall: well developed 12/08/2018 None Full Exam - General 1994 Constitutional general appearance Overall: in no acute distress 12/08/2018 None Full Exam - General 1994 Constitutional general appearance Overall: well nourished 12/08/2018 None Full Exam - General 1994 Eyes conjunctiva/eyelids Overall: conjunctiva clear 12/08/2018 None Full Exam - General 1994 Eyes conjunctiva/eyelids Overall: cornea clear 12/08/2018 None Full Exam - General 1994 Eyes conjunctiva/eyelids Overall: eyelids normal 12/08/2018 None Full Exam - General 1994 Ears/Nose/Throat lips/teeth/gingiva Overall: benign lips 12/08/2018 None Full Exam - General 1994 Ears/Nose/Throat oral cavity/pharynx/larynx Overall: oral mucosa clear 12/08/2018 None Full Exam - General 1995 Ears/Nose/Throat oral cavity/pharynx/larynx Overall: oropharyngeal mucosa clear 12/08/2018 None Full Exam - General 1994 Respiratory respiratory effort/rhythm Overall: no retractions 12/08/2018 None Full Exam - General 1994 Respiratory respiratory effort/rhythm Overall: normal rate 12/08/2018 None Full Exam - General 1994 Cardiovascular extremities Overall: no clubbing 12/08/2018 None Full Exam - General 1994 Musculoskeletal gait and station Overall: normal gait 12/08/2018 None Full Exam - General 1994 Musculoskeletal gait and station Overall: normal station 12/08/2018 None Full Exam - General 1994 Musculoskeletal head and neck Overall: head atraumatic 12/08/2018 None Full Exam - General 1994 Neurologic cranial nerves Overall: crainial nerves 2 - 12 grossly intact 12/08/2018 None Full Exam - General 1994 Psychiatric orientation/consciousness Overall: oriented to person, place and time 12/08/2018 None Full Exam - General 1994 Psychiatric mood and affect Overall: normal mood and affect 12/08/2018 None Full Exam - General 1994 Psychiatric appearance Overall: well-groomed, good eye contact 12/08/2018 None Full Exam - General 1994 Constitutional general appearance Overall: well developed 10/09/2018 None Full Exam - General 1994 Constitutional general appearance Overall: in no acute distress 10/09/2018 None Full Exam - General 1994 Constitutional general appearance Overall: well nourished 10/09/2018 None Full Exam - General 1994 Eyes conjunctiva/eyelids Overall: conjunctiva clear 10/09/2018 None Full Exam - General 1994 Eyes conjunctiva/eyelids Overall: cornea clear 10/09/2018 None Full Exam - General 1994 Eyes conjunctiva/eyelids Overall: eyelids normal 10/09/2018 None Full Exam - General 1994 Ears/Nose/Throat lips/teeth/gingiva Overall: benign lips 10/09/2018 None Full Exam - General 1994 Ears/Nose/Throat oral cavity/pharynx/larynx Overall: oral mucosa clear 10/09/2018 None Full Exam - General 1994 Ears/Nose/Throat oral cavity/pharynx/larynx Overall: oropharyngeal mucosa clear 10/09/2018 None Full Exam - General 1994 Respiratory respiratory effort/rhythm Overall: no retractions 10/09/2018 None Full Exam - General 1994 Respiratory respiratory effort/rhythm Overall: normal rate 10/09/2018 None Full Exam - General 1994 Cardiovascular extremities Overall: no clubbing 10/09/2018 None Full Exam - General 1994 Musculoskeletal gait and station Overall: normal gait 10/09/2018 None Full Exam - General 1994 Musculoskeletal gait and station Overall: normal station 10/09/2018 None Full Exam - General 1994 Musculoskeletal head and neck Overall: head atraumatic 10/09/2018 None Full Exam - General 1994 Neurologic cranial nerves Overall: crainial nerves 2 - 12 grossly intact 10/09/2018 None Full Exam - General 1994 Psychiatric orientation/consciousness Overall: oriented to person, place and time 10/09/2018 None Full Exam - General 1994 Psychiatric mood and affect Overall: normal mood and affect 10/09/2018 None Full Exam - General 1994 Psychiatric appearance Overall: well-groomed, good eye contact 10/09/2018 None Full Exam - General 1994 Respiratory auscultation Overall: breath sounds clear bilaterally 10/09/2018 None Full Exam - General 1994 Cardiovascular auscultation of heart Overall: normal heart sounds 10/09/2018 None Full Exam - General 1994 Cardiovascular auscultation of heart Overall: regular rate 10/09/2018 None Full Exam - General 1994 Constitutional general appearance Overall: well developed 07/18/2018 None Full Exam - General 1994 Constitutional general appearance Overall: in no acute distress 07/18/2018 None Full Exam - General 1994 Constitutional general appearance Overall: well nourished 07/18/2018 None Full Exam - General 1994 Eyes conjunctiva/eyelids Overall: eyelids normal 07/18/2018 None Full Exam - General 1994 Eyes conjunctiva/eyelids Overall: cornea clear 07/18/2018 None Full Exam - General 1994 Eyes conjunctiva/eyelids Overall: conjunctiva clear 07/18/2018 None Full Exam - General 1994 Ears/Nose/Throat lips/teeth/gingiva Overall: benign lips 07/18/2018 None Full Exam - General 1994 Ears/Nose/Throat oral cavity/pharynx/larynx Overall: oral mucosa clear 07/18/2018 None Full Exam - General 1994 Respiratory auscultation Overall: breath sounds clear bilaterally 07/18/2018 None Full Exam - General 1994 Respiratory respiratory effort/rhythm Overall: no retractions 07/18/2018 None Full Exam - General 1994 Respiratory respiratory effort/rhythm Overall: normal rate 07/18/2018 None Full Exam - General 1994 Cardiovascular auscultation of heart Overall: normal heart sounds 07/18/2018 None Full Exam - General 1994 Cardiovascular auscultation of heart Overall: regular rate 07/18/2018 None Full Exam - General 1994 Abdomen abdominal exam Overall: normal bowel sounds 07/18/2018 None Full Exam - General 1994 Musculoskeletal gait and station Overall: normal gait 07/18/2018 None Full Exam - General 1994 Musculoskeletal gait and station Overall: normal station 07/18/2018 None Full Exam - General 1994 Musculoskeletal head and neck Overall: head atraumatic 07/18/2018 None Full Exam - General 1994 Neurologic cranial nerves Overall: crainial nerves 2 - 12 grossly intact 07/18/2018 None Full Exam - General 1994 Psychiatric orientation/consciousness Overall: oriented to person, place and time 07/18/2018 None Full Exam - General 1994 Psychiatric mood and affect Overall: normal mood and affect 07/18/2018 None Full Exam - General 1994 Psychiatric appearance Overall: well-groomed, good eye contact 07/18/2018 None Full Exam - General 1994 Constitutional general appearance Overall: well developed 06/18/2018 None Full Exam - General 1994 Constitutional general appearance Overall: in no acute distress 06/18/2018 None Full Exam - General 1994 Constitutional general appearance Overall: well nourished 06/18/2018 None Full Exam - General 1994 Eyes conjunctiva/eyelids Overall: conjunctiva clear 06/18/2018 None Full Exam - General 1994 Eyes conjunctiva/eyelids Overall: cornea clear 06/18/2018 None Full Exam - General 1994 Eyes conjunctiva/eyelids Overall: eyelids normal 06/18/2018 None Full Exam - General 1994 Ears/Nose/Throat lips/teeth/gingiva Overall: benign lips 06/18/2018 None Full Exam - General 1994 Ears/Nose/Throat oral cavity/pharynx/larynx Overall: oral mucosa clear 06/18/2018 None Full Exam - General 1994 Ears/Nose/Throat oral cavity/pharynx/larynx Overall: oropharyngeal mucosa clear 06/18/2018 None Full Exam - General 1994 Respiratory respiratory effort/rhythm Overall: no retractions 06/18/2018 None Full Exam - General 1994 Respiratory respiratory effort/rhythm Overall: normal rate 06/18/2018 None Full Exam - General 1994 Cardiovascular extremities Overall: no clubbing 06/18/2018 None Full Exam - General 1994 Musculoskeletal gait and station Overall: normal gait 06/18/2018 None Full Exam - General 1994 Musculoskeletal gait and station Overall: normal station 06/18/2018 None Full Exam - General 1994 Musculoskeletal head and neck Overall: head atraumatic 06/18/2018 None Full Exam - General 1994 Neurologic cranial nerves Overall: crainial nerves 2 - 12 grossly intact 06/18/2018 None Full Exam - General 1994 Psychiatric orientation/consciousness Overall: oriented to person, place and time 06/18/2018 None Full Exam - General 1994 Psychiatric mood and affect Overall: normal mood and affect 06/18/2018 None Full Exam - General 1994 Psychiatric appearance Overall: well-groomed, good eye contact 06/18/2018 None Full Exam - General 1994 Constitutional general appearance Overall: well developed 02/28/2018 None Full Exam - General 1994 Constitutional general appearance Overall: in no acute distress 02/28/2018 None Full Exam - General 1994 Constitutional general appearance Overall: well nourished 02/28/2018 None Full Exam - General 1994 Eyes conjunctiva/eyelids Overall: conjunctiva clear 02/28/2018 None Full Exam - General 1994 Eyes conjunctiva/eyelids Overall: cornea clear 02/28/2018 None Full Exam - General 1994 Eyes conjunctiva/eyelids Overall: eyelids normal 02/28/2018 None Full Exam - General 1994 Ears/Nose/Throat lips/teeth/gingiva Overall: benign lips 02/28/2018 None Full Exam - General 1994 Ears/Nose/Throat oral cavity/pharynx/larynx Overall: oral mucosa clear 02/28/2018 None Full Exam - General 1994 Ears/Nose/Throat oral cavity/pharynx/larynx Overall: oropharyngeal mucosa clear 02/28/2018 None Full Exam - General 1994 Respiratory respiratory effort/rhythm Overall: no retractions 02/28/2018 None Full Exam - General 1994 Respiratory respiratory effort/rhythm Overall: normal rate 02/28/2018 None Full Exam - General 1994 Cardiovascular extremities Overall: no clubbing 02/28/2018 None Full Exam - General 1994 Musculoskeletal gait and station Overall: normal gait 02/28/2018 None Full Exam - General 1994 Musculoskeletal gait and station Overall: normal station 02/28/2018 None Full Exam - General 1994 Musculoskeletal head and neck Overall: head atraumatic 02/28/2018 None Full Exam - General 1994 Neurologic cranial nerves Overall: crainial nerves 2 - 12 grossly intact 02/28/2018 None Full Exam - General 1994 Psychiatric orientation/consciousness Overall: oriented to person, place and time 02/28/2018 None Full Exam - General 1994 Psychiatric mood and affect Overall: normal mood and affect 02/28/2018 None Full Exam - General 1994 Psychiatric appearance Overall: well-groomed, good eye contact 02/28/2018 None Full Exam - General 1994 Constitutional general appearance Overall: well developed 12/09/2017 None Full Exam - General 1994 Constitutional general appearance Overall: in no acute distress 12/09/2017 None Full Exam - General 1994 Constitutional general appearance Overall: well nourished 12/09/2017 None Full Exam - General 1994 Eyes conjunctiva/eyelids Overall: conjunctiva clear 12/09/2017 None Full Exam - General 1994 Eyes conjunctiva/eyelids Overall: cornea clear 12/09/2017 None Full Exam - General 1994 Eyes conjunctiva/eyelids Overall: eyelids normal 12/09/2017 None Full Exam - General 1994 Ears/Nose/Throat lips/teeth/gingiva Overall: benign lips 12/09/2017 None Full Exam - General 1994 Ears/Nose/Throat oral cavity/pharynx/larynx Overall: oral mucosa clear 12/09/2017 None Full Exam - General 1994 Ears/Nose/Throat oral cavity/pharynx/larynx Overall: oropharyngeal mucosa clear 12/09/2017 None Full Exam - General 1994 Respiratory respiratory effort/rhythm Overall: no retractions 12/09/2017 None Full Exam - General 1994 Respiratory respiratory effort/rhythm Overall: normal rate 12/09/2017 None Full Exam - General 1994 Musculoskeletal gait and station Overall: normal gait 12/09/2017 None Full Exam - General 1994 Musculoskeletal gait and station Overall: normal station 12/09/2017 None Full Exam - General 1994 Musculoskeletal head and neck Overall: head atraumatic 12/09/2017 None Full Exam - General 1994 Neurologic cranial nerves Overall: crainial nerves 2 - 12 grossly intact 12/09/2017 None Full Exam - General 1994 Psychiatric orientation/consciousness Overall: oriented to person, place and time 12/09/2017 None Full Exam - General 1994 Psychiatric mood and affect Overall: normal mood and affect 12/09/2017 None Full Exam - General 1994 Psychiatric appearance Overall: well-groomed, good eye contact 12/09/2017 None Full Exam - General 1994 Cardiovascular extremities Overall: no clubbing 12/09/2017 None Full Exam - General 1994 Constitutional general appearance Overall: well developed 10/21/2017 None Full Exam - General 1994 Constitutional general appearance Overall: in no acute distress 10/21/2017 None Full Exam - General 1994 Constitutional general appearance Overall: well nourished 10/21/2017 None Full Exam - General 1994 Eyes conjunctiva/eyelids Overall: conjunctiva clear 10/21/2017 None Full Exam - General 1994 Eyes conjunctiva/eyelids Overall: eyelids normal 10/21/2017 None Full Exam - General 1994 Ears/Nose/Throat lips/teeth/gingiva Overall: benign lips 10/21/2017 None Full Exam - General 1994 Ears/Nose/Throat oral cavity/pharynx/larynx Overall: oral mucosa clear 10/21/2017 None Full Exam - General 1994 Ears/Nose/Throat oral cavity/pharynx/larynx Overall: oropharyngeal mucosa clear 10/21/2017 None Full Exam - General 1994 Respiratory auscultation Overall: breath sounds clear bilaterally 10/21/2017 None Full Exam - General 1994 Respiratory respiratory effort/rhythm Overall: no retractions 10/21/2017 None Full Exam - General 1994 Respiratory respiratory effort/rhythm Overall: normal rate 10/21/2017 None Full Exam - General 1994 Cardiovascular auscultation of heart Overall: regular rate 10/21/2017 None Full Exam - General 1994 Cardiovascular auscultation of heart Overall: normal heart sounds 10/21/2017 None Full Exam - General 1994 Musculoskeletal gait and station Overall: normal gait 10/21/2017 None Full Exam - General 1994 Musculoskeletal gait and station Overall: normal station 10/21/2017 None Full Exam - General 1994 Musculoskeletal head and neck Overall: head atraumatic 10/21/2017 None Full Exam - General 1994 Neurologic cranial nerves Overall: crainial nerves 2 - 12 grossly intact 10/21/2017 None Full Exam - General 1994 Psychiatric orientation/consciousness Overall: oriented to person, place and time 10/21/2017 None Full Exam - General 1994 Psychiatric mood and affect Overall: normal mood and affect 10/21/2017 None Full Exam - General 1994 Psychiatric appearance Overall: well-groomed, good eye contact 10/21/2017 None Full Exam - General 1994 Eyes conjunctiva/eyelids Overall: cornea clear 10/21/2017 None Full Exam - General 1994 Constitutional general appearance Overall: well developed 08/27/2017 None Full Exam - General 1994 Constitutional general appearance Overall: in no acute distress 08/27/2017 None Full Exam - General 1994 Constitutional general appearance Overall: well nourished 08/27/2017 None Full Exam - General 1994 Eyes conjunctiva/eyelids Overall: conjunctiva clear 08/27/2017 None Full Exam - General 1994 Eyes conjunctiva/eyelids Overall: eyelids normal 08/27/2017 None Full Exam - General 1994 Ears/Nose/Throat lips/teeth/gingiva Overall: benign lips 08/27/2017 None Full Exam - General 1994 Ears/Nose/Throat oral cavity/pharynx/larynx Overall: oral mucosa clear 08/27/2017 None Full Exam - General 1994 Ears/Nose/Throat oral cavity/pharynx/larynx Overall: oropharyngeal mucosa clear 08/27/2017 None Full Exam - General 1994 Respiratory auscultation Overall: breath sounds clear bilaterally 08/27/2017 None Full Exam - General 1994 Respiratory respiratory effort/rhythm Overall: no retractions 08/27/2017 None Full Exam - General 1994 Respiratory respiratory effort/rhythm Overall: normal rate 08/27/2017 None Full Exam - General 1994 Cardiovascular auscultation of heart Overall: regular rate 08/27/2017 None Full Exam - General 1994 Cardiovascular auscultation of heart Overall: normal heart sounds 08/27/2017 None Full Exam - General 1994 Musculoskeletal gait and station Overall: normal gait 08/27/2017 None Full Exam - General 1994 Musculoskeletal gait and station Overall: normal station 08/27/2017 None Full Exam - General 1994 Musculoskeletal head and neck Overall: head atraumatic 08/27/2017 None Full Exam - General 1994 Neurologic cranial nerves Overall: crainial nerves 2 - 12 grossly intact 08/27/2017 None Full Exam - General 1994 Psychiatric orientation/consciousness Overall: oriented to person, place and time 08/27/2017 None Full Exam - General 1994 Psychiatric mood and affect Overall: normal mood and affect 08/27/2017 None Full Exam - General 1994 Psychiatric appearance Overall: well-groomed, good eye contact 08/27/2017 None Full Exam - General 1994 Constitutional general appearance Overall: well developed 05/27/2017 None Full Exam - General 1994 Constitutional general appearance Overall: in no acute distress 05/27/2017 None Full Exam - General 1994 Constitutional general appearance Overall: well nourished 05/27/2017 None Full Exam - General 1994 Eyes conjunctiva/eyelids Overall: conjunctiva clear 05/27/2017 None Full Exam - General 1994 Eyes conjunctiva/eyelids Overall: eyelids normal 05/27/2017 None Full Exam - General 1994 Ears/Nose/Throat lips/teeth/gingiva Overall: benign lips 05/27/2017 None Full Exam - General 1994 Ears/Nose/Throat oral cavity/pharynx/larynx Overall: oral mucosa clear 05/27/2017 None Full Exam - General 1994 Ears/Nose/Throat oral cavity/pharynx/larynx Overall: oropharyngeal mucosa clear 05/27/2017 None Full Exam - General 1994 Respiratory auscultation Overall: breath sounds clear bilaterally 05/27/2017 None Full Exam - General 1994 Respiratory respiratory effort/rhythm Overall: no retractions 05/27/2017 None Full Exam - General 1994 Respiratory respiratory effort/rhythm Overall: normal rate 05/27/2017 None Full Exam - General 1994 Cardiovascular auscultation of heart Overall: regular rate 05/27/2017 None Full Exam - General 1994 Cardiovascular auscultation of heart Overall: normal heart sounds 05/27/2017 None Full Exam - General 1994 Musculoskeletal gait and station Overall: normal gait 05/27/2017 None Full Exam - General 1994 Musculoskeletal gait and station Overall: normal station 05/27/2017 None Full Exam - General 1994 Musculoskeletal head and neck Overall: head atraumatic 05/27/2017 None Full Exam - General 1994 Neurologic cranial nerves Overall: crainial nerves 2 - 12 grossly intact 05/27/2017 None Full Exam - General 1994 Psychiatric orientation/consciousness Overall: oriented to person, place and time 05/27/2017 None Full Exam - General 1994 Psychiatric mood and affect Overall: normal mood and affect 05/27/2017 None Full Exam - General 1994 Psychiatric appearance Overall: well-groomed, good eye contact 05/27/2017 None Full Exam - General 1994 Integument inspection of skin Location: right foot 05/27/2017 None Full Exam - General 1994 Integument inspection of skin Pigmentation: erythematous 05/27/2017 None Full Exam - General 1994 Integument inspection of skin Rash/Lesions: patch 05/27/2017 None Full Exam - General 1994 Constitutional general appearance Overall: well developed 04/24/2017 None Full Exam - General 1994 Constitutional general appearance Overall: in no acute distress 04/24/2017 None Full Exam - General 1994 Constitutional general appearance Overall: well nourished 04/24/2017 None Full Exam - General 1994 Eyes conjunctiva/eyelids Overall: conjunctiva clear 04/24/2017 None Full Exam - General 1994 Eyes conjunctiva/eyelids Overall: eyelids normal 04/24/2017 None Full Exam - General 1994 Ears/Nose/Throat lips/teeth/gingiva Overall: benign lips 04/24/2017 None Full Exam - General 1994 Ears/Nose/Throat oral cavity/pharynx/larynx Overall: oral mucosa clear 04/24/2017 None Full Exam - General 1994 Ears/Nose/Throat oral cavity/pharynx/larynx Overall: oropharyngeal mucosa clear 04/24/2017 None Full Exam - General 1994 Respiratory auscultation Overall: breath sounds clear bilaterally 04/24/2017 None Full Exam - General 1994 Respiratory respiratory effort/rhythm Overall: no retractions 04/24/2017 None Full Exam - General 1994 Respiratory respiratory effort/rhythm Overall: normal rate 04/24/2017 None Full Exam - General 1994 Cardiovascular auscultation of heart Overall: regular rate 04/24/2017 None Full Exam - General 1994 Cardiovascular auscultation of heart Overall: normal heart sounds 04/24/2017 None Full Exam - General 1994 Abdomen abdominal exam Overall: normal bowel sounds 04/24/2017 None Full Exam - General 1994 Musculoskeletal head and neck Overall: head atraumatic 04/24/2017 None Full Exam - General 1994 Musculoskeletal gait and station Overall: normal station 04/24/2017 None Full Exam - General 1994 Musculoskeletal gait and station Overall: normal gait 04/24/2017 None Full Exam - General 1994 Neurologic cranial nerves Overall: crainial nerves 2 - 12 grossly intact 04/24/2017 None Full Exam - General 1994 Psychiatric orientation/consciousness Overall: oriented to person, place and time 04/24/2017 None Full Exam - General 1994 Psychiatric mood and affect Overall: normal mood and affect 04/24/2017 None Full Exam - General 1994 Psychiatric appearance Overall: well-groomed, good eye contact 04/24/2017 None Full Exam - Genitourinary/Female Constitutional general appearance Overall: well nourished 03/27/2017 None Full Exam - Genitourinary/Female Constitutional general appearance Overall: well developed 03/27/2017 None Full Exam - Genitourinary/Female Constitutional general appearance Overall: in no acute distress 03/27/2017 None Full Exam - Genitourinary/Female Eyes conjunctiva/eyelids Overall: conjunctiva clear 03/27/2017 None Full Exam - Genitourinary/Female Eyes conjunctiva/eyelids Overall: eyelids normal 03/27/2017 None Full Exam - Genitourinary/Female Ears/Nose/Throat lips/teeth/gingiva Overall: benign lips 03/27/2017 None Full Exam - Genitourinary/Female Ears/Nose/Throat oral cavity/pharynx/larynx Overall: oral mucosa clear 03/27/2017 None Full Exam - Genitourinary/Female Respiratory respiratory effort/rhythm Overall: no retractions 03/27/2017 None Full Exam - Genitourinary/Female Respiratory respiratory effort/rhythm Overall: normal rate 03/27/2017 None Full Exam - Genitourinary/Female Chest/Breast breast inspection and palpation Overall: breasts symmetric and without lesions 03/27/2017 None Full Exam - Genitourinary/Female Chest/Breast breast inspection and palpation Overall: normal chest shape 03/27/2017 None Full Exam - Genitourinary/Female Chest/Breast breast inspection and palpation Overall: breasts non-tender, no mass lesions 03/27/2017 None Full Exam - Genitourinary/Female Chest/Breast breast inspection and palpation Overall: no nipple discharge 03/27/2017 None Full Exam - Genitourinary/Female Genitourinary digital rectal exam Overall: good sphincter tone, no masses, no lesions 03/27/2017 None Full Exam - Genitourinary/Female Genitourinary external genitalia Overall: normal hair distribution 03/27/2017 None Full Exam - Genitourinary/Female Genitourinary external genitalia Overall: no discharge 03/27/2017 None Full Exam - Genitourinary/Female Genitourinary external genitalia Overall: no lesions 03/27/2017 None Full Exam - Genitourinary/Female Genitourinary bladder Overall: no tenderness 03/27/2017 None Full Exam - Genitourinary/Female Genitourinary vagina Overall: no discharge 03/27/2017 None Full Exam - Genitourinary/Female Genitourinary vagina Overall: no lesions 03/27/2017 None Full Exam - Genitourinary/Female Genitourinary vagina Overall: normal tone 03/27/2017 None Full Exam - Genitourinary/Female Genitourinary cervix Overall: cervix surgically absent 03/27/2017 None Full Exam - Genitourinary/Female Genitourinary uterus Overall: uterus surgically absent 03/27/2017 None Full Exam - Genitourinary/Female Genitourinary adnexa/parametria Overall: ovaries surgically absent 03/27/2017 None Full Exam - Genitourinary/Female Neurologic mood and affect Overall: normal mood 03/27/2017 None Full Exam - Genitourinary/Female Neurologic mood and affect Overall: normal affect 03/27/2017 None Full Exam - Genitourinary/Female Neurologic orientation Overall: oriented to person, place and time 03/27/2017 None Full Exam - General 1994 Constitutional general appearance Overall: well developed 10/25/2016 None Full Exam - General 1994 Constitutional general appearance Overall: in no acute distress 10/25/2016 None Full Exam - General 1994 Constitutional general appearance Overall: well nourished 10/25/2016 None Full Exam - General 1994 Eyes conjunctiva/eyelids Overall: conjunctiva clear 10/25/2016 None Full Exam - General 1994 Eyes conjunctiva/eyelids Overall: eyelids normal 10/25/2016 None Full Exam - General 1994 Ears/Nose/Throat lips/teeth/gingiva Overall: benign lips 10/25/2016 None Full Exam - General 1994 Ears/Nose/Throat oral cavity/pharynx/larynx Overall: oral mucosa clear 10/25/2016 None Full Exam - General 1994 Respiratory auscultation Overall: breath sounds clear bilaterally 10/25/2016 None Full Exam - General 1994 Respiratory respiratory effort/rhythm Overall: no retractions 10/25/2016 None Full Exam - General 1994 Respiratory respiratory effort/rhythm Overall: normal rate 10/25/2016 None Full Exam - General 1994 Cardiovascular extremities Overall: no clubbing 10/25/2016 None Full Exam - General 1994 Cardiovascular auscultation of heart Overall: regular rate 10/25/2016 None Full Exam - General 1994 Cardiovascular auscultation of heart Overall: normal heart sounds 10/25/2016 None Full Exam - General 1994 Musculoskeletal gait and station Overall: normal gait 10/25/2016 None Full Exam - General 1994 Musculoskeletal gait and station Overall: normal station 10/25/2016 None Full Exam - General 1994 Musculoskeletal head and neck Overall: head atraumatic 10/25/2016 None Full Exam - General 1994 Neurologic cranial nerves Overall: crainial nerves 2 - 12 grossly intact 10/25/2016 None Full Exam - General 1994 Psychiatric orientation/consciousness Overall: oriented to person, place and time 10/25/2016 None Full Exam - General 1994 Psychiatric mood and affect Overall: normal mood and affect 10/25/2016 None Full Exam - General 1994 Psychiatric mood and affect Mood: depressed 10/25/2016 None Full Exam - General 1994 Psychiatric appearance Overall: well-groomed, good eye contact 10/25/2016 None Full Exam - General 1994 Constitutional general appearance Overall: well developed 08/24/2016 None Full Exam - General 1994 Constitutional general appearance Overall: in no acute distress 08/24/2016 None Full Exam - General 1994 Constitutional general appearance Overall: well nourished 08/24/2016 None Full Exam - General 1994 Eyes conjunctiva/eyelids Overall: conjunctiva clear 08/24/2016 None Full Exam - General 1994 Eyes conjunctiva/eyelids Overall: cornea clear 08/24/2016 None Full Exam - General 1994 Eyes conjunctiva/eyelids Overall: eyelids normal 08/24/2016 None Full Exam - General 1994 Ears/Nose/Throat lips/teeth/gingiva Overall: benign lips 08/24/2016 None Full Exam - General 1994 Ears/Nose/Throat lips/teeth/gingiva Overall: normal dentition 08/24/2016 None Full Exam - General 1994 Ears/Nose/Throat oral cavity/pharynx/larynx Overall: oral mucosa clear 08/24/2016 None Full Exam - General 1994 Ears/Nose/Throat oral cavity/pharynx/larynx Overall: oropharyngeal mucosa clear 08/24/2016 None Full Exam - General 1994 Ears/Nose/Throat oral cavity/pharynx/larynx Overall: no masses 08/24/2016 None Full Exam - General 1994 Respiratory auscultation Overall: breath sounds clear bilaterally 08/24/2016 None Full Exam - General 1994 Respiratory respiratory effort/rhythm Overall: no retractions 08/24/2016 None Full Exam - General 1994 Respiratory respiratory effort/rhythm Overall: normal rate 08/24/2016 None Full Exam - General 1994 Cardiovascular extremities Overall: no clubbing 08/24/2016 None Full Exam - General 1994 Cardiovascular auscultation of heart Overall: regular rate 08/24/2016 None Full Exam - General 1994 Cardiovascular auscultation of heart Overall: normal heart sounds 08/24/2016 None Full Exam - General 1994 Musculoskeletal gait and station Overall: normal gait 08/24/2016 None Full Exam - General 1994 Musculoskeletal gait and station Overall: normal station 08/24/2016 None Full Exam - General 1994 Musculoskeletal head and neck Overall: head atraumatic 08/24/2016 None Full Exam - General 1994 Neurologic cranial nerves Overall: crainial nerves 2 - 12 grossly intact 08/24/2016 None Full Exam - General 1994 Psychiatric orientation/consciousness Overall: oriented to person, place and time 08/24/2016 None Full Exam - General 1994 Psychiatric mood and affect Overall: normal mood and affect 08/24/2016 None Full Exam - General 1994 Psychiatric mood and affect Mood: depressed 08/24/2016 None Full Exam - General 1994 Psychiatric appearance Overall: well-groomed, good eye contact 08/24/2016 None Full Exam - General 1994 Constitutional general appearance Overall: well developed 06/12/2016 None Full Exam - General 1994 Constitutional general appearance Overall: in no acute distress 06/12/2016 None Full Exam - General 1994 Constitutional general appearance Overall: well nourished 06/12/2016 None Full Exam - General 1994 Eyes conjunctiva/eyelids Overall: conjunctiva clear 06/12/2016 None Full Exam - General 1994 Eyes conjunctiva/eyelids Overall: cornea clear 06/12/2016 None Full Exam - General 1994 Eyes conjunctiva/eyelids Overall: eyelids normal 06/12/2016 None Full Exam - General 1994 Eyes pupils and irises Overall: pupils equal, round, reactive to light and accomodation 06/12/2016 None Full Exam - General 1994 Ears/Nose/Throat otoscopic exam Overall: external auditory canals clear 06/12/2016 None Full Exam - General 1994 Ears/Nose/Throat otoscopic exam Overall: tympanic membranes clear 06/12/2016 None Full Exam - General 1994 Ears/Nose/Throat lips/teeth/gingiva Overall: benign lips 06/12/2016 None Full Exam - General 1994 Ears/Nose/Throat lips/teeth/gingiva Overall: normal dentition 06/12/2016 None Full Exam - General 1994 Ears/Nose/Throat oral cavity/pharynx/larynx Overall: oral mucosa clear 06/12/2016 None Full Exam - General 1994 Ears/Nose/Throat oral cavity/pharynx/larynx Overall: oropharyngeal mucosa clear 06/12/2016 None Full Exam - General 1994 Ears/Nose/Throat oral cavity/pharynx/larynx Overall: no masses 06/12/2016 None Full Exam - General 1994 Respiratory auscultation Overall: breath sounds clear bilaterally 06/12/2016 None Full Exam - General 1994 Respiratory respiratory effort/rhythm Overall: no retractions 06/12/2016 None Full Exam - General 1994 Respiratory respiratory effort/rhythm Overall: normal rate 06/12/2016 None Full Exam - General 1994 Cardiovascular auscultation of heart Overall: regular rate 06/12/2016 None Full Exam - General 1994 Cardiovascular auscultation of heart Overall: normal heart sounds 06/12/2016 None Full Exam - General 1994 Cardiovascular extremities Overall: no clubbing 06/12/2016 None Full Exam - General 1994 Abdomen abdominal exam Overall: no tenderness 06/12/2016 None Full Exam - General 1994 Abdomen abdominal exam Overall: normal bowel sounds 06/12/2016 None Full Exam - General 1994 Lymphatic neck nodes Overall: anterior cervical chain benign 06/12/2016 None Full Exam - General 1994 Lymphatic neck nodes Overall: posterior cervical chain benign 06/12/2016 None Full Exam - General 1994 Musculoskeletal gait and station Overall: normal gait 06/12/2016 None Full Exam - General 1994 Musculoskeletal gait and station Overall: normal station 06/12/2016 None Full Exam - General 1994 Musculoskeletal head and neck Overall: head atraumatic 06/12/2016 None Full Exam - General 1994 Integument inspection of skin Overall: no rash, lesions 06/12/2016 None Full Exam - General 1994 Neurologic gait Overall: no ataxia, no unsteadiness 06/12/2016 None Full Exam - General 1994 Neurologic cranial nerves Overall: crainial nerves 2 - 12 grossly intact 06/12/2016 None Full Exam - General 1994 Psychiatric orientation/consciousness Overall: oriented to person, place and time 06/12/2016 None Full Exam - General 1994 Psychiatric mood and affect Overall: normal mood and affect 06/12/2016 None Full Exam - General 1994 Psychiatric appearance Overall: well-groomed, good eye contact 06/12/2016 None Full Exam - General 1994 Psychiatric mood and affect Mood: depressed 06/12/2016 None Procedures No Procedures data Vital Signs Date Vital 02/23/2019 Blood Pressure 1: 142/72 Code: 8480-6 BMI: 30.9 Code: 21567-3 Heart Rate 1: 82 bpm Height: 5'2" SpO2: 98% Weight: 169 lbs 12/08/2018 Blood Pressure 1: 130/74 Code: 8480-6 BMI: 30.7 Code: 78962-8 Heart Rate 1: 82 bpm Height: 5'2" SpO2: 97% Weight: 168 lbs 11/27/2018 Blood Pressure 1: 130/74 Code: 8480-6 Weight: 168 lbs 10/09/2018 Blood Pressure 1: 128/74 Code: 8480-6 BMI: 31.1 Code: 50727-4 Heart Rate 1: 81 bpm Height: 5'2" SpO2: 97% Weight: 170 lbs 08/29/2018 Blood Pressure 1: 120/70 Code: 8480-6 BMI: 31.1 Code: 66300-0 Heart Rate 1: 65 bpm Height: 5'2" Weight: 170 lbs 07/18/2018 Blood Pressure 1: 126/88 Code: 8480-6 Heart Rate 1: 78 bpm Height: SpO2: 97% Weight: 07/16/2018 Blood Pressure 1: 130/78 Code: 8480-6 Heart Rate 1: 84 bpm Weight: 172 lbs 06/18/2018 Blood Pressure 1: 128/80 Code: 8480-6 BMI: 31.1 Code: 01020-5 Heart Rate 1: 80 bpm Height: 5'2" SpO2: 97% Weight: 170 lbs 02/28/2018 Blood Pressure 1: 120/78 Code: 8480-6 BMI: 31.6 Code: 45747-9 Heart Rate 1: 66 bpm Height: 5'2" SpO2: 98% Weight: 173 lbs 12/09/2017 Blood Pressure 1: 116/74 Code: 8480-6 BMI: 31.5 Code: 05019-0 Heart Rate 1: 74 bpm Height: 5'2" SpO2: 95% Weight: 172 lbs 10/21/2017 Blood Pressure 1: 136/82 Code: 8480-6 BMI: 30.4 Code: 53210-1 Heart Rate 1: 79 bpm Height: 5'2" SpO2: 97% Weight: 166 lbs 09/26/2017 Blood Pressure 1: 122/80 Code: 8480-6 BMI: 30.4 Code: 89379-0 Heart Rate 1: 63 bpm Height: 5'2" SpO2: 98% Weight: 166 lbs 08/27/2017 Blood Pressure 1: 132/70 Code: 8480-6 BMI: 30.7 Code: 93031-6 Heart Rate 1: 89 bpm Height: 5'2" SpO2: 98% Weight: 168 lbs 05/27/2017 Blood Pressure 1: 132/72 Code: 8480-6 BMI: 28.9 Code: 13973-9 Heart Rate 1: 72 bpm Height: 5'2" SpO2: 98% Weight: 158 lbs 04/24/2017 Blood Pressure 1: 140/76 Code: 8480-6 BMI: 29.3 Code: 80446-1 Heart Rate 1: 77 bpm Height: 5'2" SpO2: 97% Weight: 160 lbs 03/27/2017 Blood Pressure 1: 128/74 Code: 8480-6 BMI: 29.1 Code: 57459-8 Heart Rate 1: 74 bpm Height: 5'2" SpO2: 98% Temperature: 36.8 (C) / 98.3 (F) Weight: 159 lbs 10/25/2016 Blood Pressure 1: 116/74 Code: 8480-6 BMI: 28.9 Code: 31112-6 Heart Rate 1: 68 bpm Height: 5'2" SpO2: 99% Weight: 158 lbs 09/20/2016 Blood Pressure 1: 116/70 Code: 8480-6 Heart Rate 1: 72 bpm Weight: 150 lbs 08/24/2016 Blood Pressure 1: 118/62 Code: 8480-6 BMI: 27.6 Code: 86643-2 Heart Rate 1: 63 bpm Height: 5'2" SpO2: 99% Weight: 151 lbs 06/12/2016 Blood Pressure 1: 122/74 Code: 8480-6 BMI: 26.9 Code: 14702-8 Heart Rate 1: 52 bpm Height: 5'2" SpO2: 97% Weight: 147 lbs Functional Status No Functional Status data History of Present Illness Symptom Name Status Result Effective Date Notes Location on the right 02/23/2019 None Onset and Resolution sudden in onset 02/23/2019 None Onset of Symptom 3 months ago 02/23/2019 None Frequency of Episodes daily 02/23/2019 None Location oral intake 12/08/2018 None Quality chronic 12/08/2018 None medication follow up Additional Comments medication use 10/09/2018 None medication follow up Location oral intake 10/09/2018 None anxiety Quality chronic 07/18/2018 None anxiety Quality intermittent 07/18/2018 None anxiety Onset and Resolution ongoing 07/18/2018 None anxiety Pertinent Findings Denies dyspnea 07/18/2018 None medication follow up Location oral intake 06/18/2018 None medication follow up Quality chronic 06/18/2018 None ankle pain Location on the right 02/28/2018 None ankle pain Quality chronic 02/28/2018 None ankle pain Quality constant 02/28/2018 None ankle pain Onset and Resolution ongoing 02/28/2018 None ankle pain Onset of Symptom 14 years ago 02/28/2018 None ankle pain Frequency of Episodes daily 02/28/2018 None ankle pain Limitation on Activities allows weight bearing activity 02/28/2018 None ankle pain Significant Medical Conditions prior injury 02/28/2018 None Weight follow up Location diffusely 02/28/2018 None Weight follow up Quality chronic 02/28/2018 None Weight follow up Onset and Resolution ongoing 02/28/2018 None Weight follow up Onset and Resolution gradual in onset 02/28/2018 None medication follow up Location oral intake 12/09/2017 None medication follow up Additional Comments medication use 12/09/2017 None medication follow up Additional Comments medication: hydrocodone 12/09/2017 None medication follow up Quality chronic 12/09/2017 None medication follow up Location oral intake 10/21/2017 None medication follow up Additional Comments medication use 08/27/2017 None medication follow up Location oral intake 08/27/2017 None medication follow up Location oral intake 05/27/2017 None foot pain Location on the right 05/27/2017 None foot pain Pertinent Findings redness 05/27/2017 None medication follow up Additional Comments medication use 04/24/2017 None medication follow up Location oral intake 04/24/2017 None well woman exam (18-39 years) Control none 03/27/2017 None well woman exam (18-39 years) Pap Smear last normal performed on -__ 03/27/2017 None well woman exam (18-39 years) Pap Smear normal results 03/27/2017 None well woman exam (18-39 years) Menstrual History last menstrual period 20--__ 03/27/2017 None well woman exam (18-39 years) Nutrition and Exercise normal weight 03/27/2017 None well woman exam (18-39 years) Nutrition and Exercise regular diet 03/27/2017 None mole check Location-Major on the back 03/27/2017 None Weight follow up Location diffusely 10/25/2016 None Weight follow up Quality chronic 10/25/2016 None Weight follow up Pertinent Findings Denies fever 10/25/2016 None Weight follow up Alleviating Factors activity 10/25/2016 None Weight follow up Severity mild 10/25/2016 None weight gain/obesity Location globally 08/24/2016 None weight gain/obesity Quality constant 08/24/2016 None weight gain/obesity Onset and Resolution sudden in onset 08/24/2016 None weight gain/obesity Onset of Symptom 6 months ago 08/24/2016 None fatigue Onset of Symptom 6 months ago 08/24/2016 None fatigue Frequency of Episodes daily 08/24/2016 None depression Quality constant 06/12/2016 None depression Onset and Resolution sudden in onset 06/12/2016 None depression Onset of Symptom 1 years ago 06/12/2016 None depression Frequency of Episodes daily 06/12/2016 None depression Pertinent Findings depressed mood 06/12/2016 None depression Pertinent Findings difficulty concentrating 06/12/2016 None depression Pertinent Findings irritability 06/12/2016 None depression Pertinent Findings poor self esteem 06/12/2016 None Advance Directives No Advance Directive data Encounters Encounter Performer Location Codes Date 23033 EST. 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 PATIENT, LEVEL III Diagnosis: Chronic pain syndrome[ICD10: G89.4] Veda Jama MD, [facility] CPT- 4: 24558 12/08/2018 ([id number]) Miscellaneous no charge Diagnosis: Overweight[ICD10: E66.3] Juju Jama MD, [facility] CPT-4: 33142 11/27/2018 10666 EST. PATIENT, LEVEL III Diagnosis: Chronic pain syndrome[ICD10: G89.4] Diagnosis: Menopausal and female climacteric states[ICD10: N95.1] Veda Jama MD, [facility] CPT-4: 45599 10/09/2018 ([id number]) Miscellaneous no charge Diagnosis: Overweight[ICD10: E66.3] Juju Jama MD, [facility] CPT-4: 76598 08/29/2018 64993 EST. PATIENT, LEVEL III Diagnosis: Generalized anxiety disorder[ICD10: F41.1] Diagnosis: Major depressive disorder, single episode, moderate[ICD10: F32.1] Veda Jama MD, [facility] CPT-4: 92187 07/18/2018 ([id number]) Miscellaneous no charge Diagnosis: Overweight[ICD10: E66.3] Juju Jama MD, [facility] CPT-4: 84594 07/16/2018 96934 EST. PATIENT, LEVEL III Diagnosis: Chronic pain syndrome[ICD10: G89.4] Diagnosis: Overweight[ICD10: E66.3] Veda Jama MD, [facility] CPT-4: 12536 06/18/2018 12660 EST. PATIENT, LEVEL IV Diagnosis: Chronic pain syndrome[ICD10: G89.4] Diagnosis: Overweight[ICD10: E66.3] Veda Jama MD, [facility] CPT-4: 07425 02/28/2018 83542 EST. PATIENT, LEVEL III Diagnosis: Chronic pain syndrome[ICD10: G89.4] Diagnosis: Overweight[ICD10: E66.3] Veda Jama MD, [facility] CPT-4: 47953 12/09/2017 66628 EST. PATIENT, LEVEL III Diagnosis: Chronic pain syndrome[ICD10: G89.4] Diagnosis: Overweight[ICD10: E66.3] Veda Jama MD [facility] CPT-4: 47955 10/21/2017 ([id number]) Miscellaneous no charge Diagnosis: Overweight[ICD10: E66.3] Juju Jama MD [facility] CPT-4: 90454 09/26/2017 74837 EST. PATIENT, LEVEL III Diagnosis: Chronic pain syndrome[ICD10: G89.4] Diagnosis: Overweight[ICD10: E66.3] Veda Jama MD, [facility] CPT-4: 75800 08/27/2017 52640 EST. PATIENT, LEVEL III Diagnosis: Chronic pain syndrome[ICD10: G89.4] Diagnosis: Generalized anxiety disorder[ICD10: F41.1] Diagnosis: Major depressive disorder, single episode, moderate[ICD10: F32.1] Diagnosis: Cellulitis of right lower limb[ICD10: L03.115] Veda Jama MD, [facility] CPT-4: 48006 05/27/2017 ([id number]) 70722 EST. PATIENT, LEVEL IV Diagnosis: Generalized anxiety disorder[ICD10: F41.1] Diagnosis: Major depressive disorder, single episode, moderate[ICD10: F32.1] Diagnosis: Menopausal and female climacteric states[ICD10: N95.1] Diagnosis: Chronic pain syndrome[ICD10: G89.4] Veda Jama MD, [facility] CPT- 4: 79574 04/24/2017 ([id number]) PREV VISIT EST AGE 18-39 Diagnosis: Encounter for gynecological examination (general) (routine) without abnormal findings[ICD10: Z01.419] Veda Jama MD, [facility] CPT-4: 29760 03/27/2017 ([id number]) 45806 EST. PATIENT, LEVEL III Diagnosis: Overweight[ICD10: E66.3] Veda Jama MD, [facility] CPT-4: 52944 10/25/2016 ([id number]) Miscellaneous no charge Diagnosis: Overweight[ICD10: E66.3] [facility] CPT-4: 67589 09/20/2016 87225 EST. PATIENT, LEVEL IV Diagnosis: Other fatigue[ICD10: R53.83] Diagnosis: Overweight[ICD10: E66.3] Diagnosis: Generalized anxiety disorder[ICD10: F41.1] [facility] CPT-4: 10041 08/24/2016 ([id number]) OFFICE VISIT, NEW - LEVEL 4 Diagnosis: Generalized anxiety disorder[ICD10: F41.1] Diagnosis: Major depressive disorder, single episode, moderate[ICD10: F32.1] [facility] CPT-4: 35864 06/12/2016 Plan of Care Planned Activity Notes Codes Status Date Visit Plan: Princess haas - ongoing - will send RX - pt is to notify clinic if symptoms do not improve, if they worsen, or with any changes, questions, or concerns. Will refer to Dr. Bassett if symptoms persist. 02/23/2019 Appointment: Veda Duenas WPtel: [address] [place], [place] [phone] (30 min) Complex 02/23/2019 Patient Education: Patient Medication Summary Completed 02/23/2019 Visit Plan: Chronic Pain Syndrome - pt has chronic pain - has been maintained on current medications, has not sought out other medications, only uses PRN pain medications as directed, and understands the consequences of over-medication. 12/08/2018 Appointment: Veda Duenas WPtel: [address] [place], [place] [phone] (30 min) Complex 12/08/2018 Patient Education: Patient Medication Summary Completed 12/08/2018 Appointment: Nurse Visit 11/27/2018 Patient Education: Patient Medication Summary Completed 11/27/2018 Visit Plan: Chronic Pain Syndrome - pt has chronic pain - has been maintained on current medications, has not sought out other medications, only uses PRN pain medications as directed, and understands the consequences of over-medication. Hot flashes, decreased libido - stop compound hormone cream and restart previous hormones. pt is to notify clinic with any questions or concerns. 10/09/2018 Appointment: [facility] [phone] [id number] ([facility] min) Moderate 10/09/2018 Patient Education: Patient Medication Summary Completed 10/09/2018 Appointment: Nurse Visit 08/29/2018 Patient Education: Patient Medication Summary Completed 08/29/2018 Visit Plan: Anxiety - the patient has uncontrolled anxiety and will benefit from an SSRI on a daily basis to attempt control of the symptoms of anxiety (tachycardia, overwhelming sensations, stress, insomnia, etc). Pt is aware of the risks and benefits of treatment with the above medications. Depression - uncontrolled - Pt has been counseled about the diagnosis of depression, the potential causes, and risks associated with the diagnosis. The pt denies suicidal ideation, or plans. The patient has been counseled about treatment options, and understands the risks associated with treatment of depression, as well as the risks associated with NOT treating the depression. I believe the pt will benefit from medical intervention and an antidepressant has been appropriately prescribed for this patient. 07/18/2018 Appointment: [id number] ([facility] min) Moderate 07/18/2018 Patient Education: Patient Medication Summary Completed 07/18/2018 Appointment: Nurse Visit 07/16/2018 Patient Education: Patient Medication Summary Completed 07/16/2018 Visit Plan: Chronic Pain Syndrome - pt has chronic pain - has been maintained on current medications, has not sought out other medications, only uses PRN pain medications as directed, and understands the consequences of over-medication. Obesity - chronic issue with this patient. The pt has been counseled about diet changes, calorie restriction, and need to exercise. Pt will RTC in one month for weight check. 06/18/2018 Appointment: [id number] ([facility] min) Moderate 06/18/2018 Patient Education: Patient Medication Summary Completed 06/18/2018 Visit Plan: Chronic Pain Syndrome - pt has chronic pain - has been maintained on current medications, has not sought out other medications, only uses PRN pain medications as directed, and understands the consequences of over-medication. Obesity - chronic issue with this patient. The pt has been counseled about diet changes, calorie restriction, and need to exercise. Pt will RTC in one month for weight check. 02/28/2018 Appointment: Veda Duenas WPtel: [id number] [place] (30 min) Complex 02/28/2018 Patient Education: Patient Medication Summary Completed 02/28/2018 Patient Education: Obesity Completed 02/28/2018 Appointment: Veda Duenas WPtel: [id number] [place] (15 min) Moderate 02/27/2018 Visit Plan: Chronic Pain Syndrome - pt has chronic pain - has been maintained on current medications, has not sought out other medications, only uses PRN pain medications as directed, and understands the consequences of over-medication. Obesity - chronic issue with this patient. The pt has been counseled about diet changes, calorie restriction, and need to exercise. Pt will RTC in one month for weight check. 12/09/2017 Appointment: Veda Duenas WPtel: [facility]5 [facility] [place] (15 min) Moderate 12/09/2017 Patient Education: Patient Medication Summary Completed 12/09/2017 Patient Education: Obesity Completed 12/09/2017 Care Plan: BMI Above normal followup SELF-MGMT EDUC & TRAIN 1 PT Pending 12/09/2017 Visit Plan: Chronic Pain Syndrome - pt has chronic pain - has been maintained on current medications, has not sought out other medications, only uses PRN pain medications as directed, and understands the consequences of over-medication. Obesity - chronic issue with this patient. The pt has been counseled about diet changes, calorie restriction, and need to exercise. Pt will RTC in one month for weight check. 10/21/2017 Appointment: Veda Duenas WPtel: [id number] [place] (15 min) Moderate 10/21/2017 Patient Education: Patient Medication Summary Completed 10/21/2017 Patient Education: Obesity Completed 10/21/2017 Appointment: Nurse Visit 09/26/2017 Patient Education: Patient Medication Summary Completed 09/26/2017 Appointment: Veda Duenas WPtel: [id number] [place] (30 min) Complex 08/30/2017 Visit Plan: Chronic Pain Syndrome - pt has chronic pain - has been maintained on current medications, has not sought out other medications, only uses PRN pain medications as directed, and understands the consequences of over-medication. Obesity - chronic issue with this patient. The pt has been counseled about diet changes, calorie restriction, and need to exercise. Pt will RTC in one month for weight check. 08/27/2017 Patient Education: Patient Medication Summary Completed 08/27/2017 Patient Education: Obesity Completed 08/27/2017 Care Plan: BMI Above normal followup SELF-MGMT EDUC & TRAIN 1 PT Pending 08/27/2017 Appointment: Nurse Visit 06/10/2017 Appointment: Nurse Visit 06/06/2017 Patient Education: Patient Medication Summary Completed 06/03/2017 Visit Plan: Chronic Depression and anxiety - the pt has symptoms of chronic anxiety and depression that have been fairly well controlled since the last office visit. The pt has expected periods of exacerbation with abatement of the symptoms with change in situational exposure. No change in current medications. Chronic Pain Syndrome - pt has chronic pain - has been maintained on current medications, has not sought out other medications, only uses PRN pain medications as directed, and understands the consequences of over- medication. Cellulitis - continue with oral antibiotics as previously directed, return to clinic as previously directed, call for acute change in symptoms, worsening redness, warmth, discharge. 05/27/2017 Appointment: Veda Duenas WPtel: [address] [place], [place] [id number] (30 min) Complex 05/27/2017 Patient Education: Patient Medication Summary Completed 05/27/2017 Visit Plan: Chronic Depression and anxiety - the pt has symptoms of chronic anxiety and depression that have been fairly well controlled since the last office visit. The pt has expected periods of exacerbation with abatement of the symptoms with change in situational exposure. No change in current medications. Chronic Pain Syndrome - pt has chronic pain - has been maintained on current medications, has not sought out other medications, only uses PRN pain medications as directed, and understands the consequences of over- medication. Menopausal symptoms - pt is getting RX cream - pt is to notify clinic if symptoms are not controlled with new RX. 04/24/2017 Visit Plan: Chronic Depression and anxiety - the pt has symptoms of chronic anxiety and depression that have been fairly well controlled since the last office visit. The pt has expected periods of exacerbation with abatement of the symptoms with change in situational exposure. No change in current medications. Chronic Pain Syndrome - pt has chronic pain - has been maintained on current medications, has not sought out other medications, only uses PRN pain medications as directed, and understands the consequences of over- medication. Menopausal symptoms - pt is getting RX cream - pt is to notify clinic if symptoms are not controlled with new RX. 04/24/2017 Appointment: [facility]eda Duenas [facility]el[phone] [id number] ([facility] min) Complex 04/24/2017 Patient Education: Patient Medication Summary Completed 04/24/2017 Visit Plan: Well Adult Female - exam completed. Pap and breast exam completed. Pt will be called with results of her testing. She was advised to continue with yearly annual exams. Safe sex practices discussed during office visit today. Call if any abnormal gynecologic issues during the next year, otherwise, RTC yearly or prn. 03/27/2017 Visit Plan: Well Adult Female - exam completed. Pap and breast exam completed. Pt will be called with results of her testing. She was advised to continue with yearly annual exams. Safe sex practices discussed during office visit today. Call if any abnormal gynecologic issues during the next year, otherwise, RTC yearly or prn. Pt has been on hormone therapy since her total hysterectomy due to endometriosis. Pt has had issues with hot flashes, and more recently decreased libido - her insurance is no longer covering her hormone therapy - will send orders for hormone compounding per pharmacy. 03/27/2017 Appointment: Veda Duenas WPtel: [facility] Well Woman 03/27/2017 Patient Education: Patient Medication Summary Completed 03/27/2017 Care Plan: BMI Above normal followup SELF-MGMT EDUC & TRAIN 1 PT Pending 11/07/2016 Visit Plan: Obesity - chronic issue with this patient. The pt has been counseled about diet changes, calorie restriction, and need to exercise. Pt will RTC in one month for weight check. 10/25/2016 Appointment: Veda Dueans WPtel: [facility] [facility] (15 min) Moderate 10/25/2016 Patient Education: Patient Medication Summary Completed 10/25/2016 Patient Education: Obesity Completed 10/25/2016 Appointment: Nurse Visit 09/20/2016 Patient Education: Patient Medication Summary Completed 09/20/2016 Patient Education: Obesity Completed 09/20/2016 Appointment: Nurse Visit 09/17/2016 Visit Plan: Chronic Depression and anxiety - the pt has symptoms of chronic anxiety and depression that have been fairly well controlled since the last office visit. The pt has expected periods of exacerbation with abatement of the symptoms with change in situational exposure. No change in current medications. Overweight - chronic issue with this patient. The pt has been counseled about diet changes, calorie restriction, and need to exercise. Pt will RTC in one month for weight check. 08/24/2016 Appointment: Radha Mcgowan WPtel: [phone] (30 min) Complex 08/24/2016 Appointment: Radha Mcgowan WPtel: [address] (30 min) Complex 08/24/2016 Appointment: Radha Mcgowan WPtel: [address] (30 min) Complex 08/24/2016 Patient Education: Patient Medication Summary Completed 08/24/2016 Patient Education: Obesity Completed 08/24/2016 Visit Plan: Anxiety - the patient has uncontrolled anxiety and will benefit from an SSRI on a daily basis to attempt control of the symptoms of anxiety (tachycardia, overwhelming sensations, stress, insomnia, etc). Pt is aware of the risks and benefits of treatment with the above medications. Depression - uncontrolled - Pt has been counseled about the diagnosis of depression, the potential causes, and risks associated with the diagnosis. The pt denies suicidal ideation, or plans. The patient has been counseled about treatment options, and understands the risks associated with treatment of depression, as well as the risks associated with NOT treating the depression. I believe the pt will benefit from medical intervention and an antidepressant has been appropriately prescribed for this patient. 06/12/2016 Appointment: Rad[facility]el: [phone] [id number] [place] New Patient 06/12/2016 Patient Education: Patient Medication Summary Completed 06/12/2016 Patient Education: Obesity Completed 06/12/2016 Instructions Comment . Chronic Pain Syndrome - pt has chronic pain - has been maintained on current medications, has not sought out other medications, only uses PRN pain medications as directed, and understands the consequences of over-medication. Obesity - chronic issue with this patient. The pt has been counseled about diet changes, calorie restriction, and need to exercise. Pt will RTC in one month for weight check. . Chronic Pain Syndrome - pt has chronic pain - has been maintained on current medications, has not sought out other medications, only uses PRN pain medications as directed, and understands the consequences of over-medication. . Chronic Depression and anxiety - the pt has symptoms of chronic anxiety and depression that have been fairly well controlled since the last office visit. The pt has expected periods of exacerbation with abatement of the symptoms with change in situational exposure. No change in current medications. Chronic Pain Syndrome - pt has chronic pain - has been maintained on current medications, has not sought out other medications, only uses PRN pain medications as directed, and understands the consequences of over-medication. Cellulitis - continue with oral antibiotics as previously directed, return to clinic as previously directed, call for acute change in symptoms, worsening redness, warmth, discharge. . Chronic Depression and anxiety - the pt has symptoms of chronic anxiety and depression that have been fairly well controlled since the last office visit. The pt has expected periods of exacerbation with abatement of the symptoms with change in situational exposure. No change in current medications. Overweight - chronic issue with this patient. The pt has been counseled about diet changes, calorie restriction, and need to exercise. Pt will RTC in one month for weight check. . Chronic Depression and anxiety - the pt has symptoms of chronic anxiety and depression that have been fairly well controlled since the last office visit. The pt has expected periods of exacerbation with abatement of the symptoms with change in situational exposure. No change in current medications. Chronic Pain Syndrome - pt has chronic pain - has been maintained on current medications, has not sought out other medications, only uses PRN pain medications as directed, and understands the consequences of over-medication. Menopausal symptoms - pt is getting RX cream - pt is to notify clinic if symptoms are not controlled with new RX. . Chronic Depression and anxiety - the pt has symptoms of chronic anxiety and depression that have been fairly well controlled since the last office visit. The pt has expected periods of exacerbation with abatement of the symptoms with change in situational exposure. No change in current medications. Chronic Pain Syndrome - pt has chronic pain - has been maintained on current medications, has not sought out other medications, only uses PRN pain medications as directed, and understands the consequences of over-medication. Menopausal symptoms - pt is getting RX cream - pt is to notify clinic if symptoms are not controlled with new RX. . Chronic Pain Syndrome - pt has chronic pain - has been maintained on current medications, has not sought out other medications, only uses PRN pain medications as directed, and understands the consequences of over-medication. Obesity - chronic issue with this patient. The pt has been counseled about diet changes, calorie restriction, and need to exercise. Pt will RTC in one month for weight check. . Chronic Pain Syndrome - pt has chronic pain - has been maintained on current medications, has not sought out other medications, only uses PRN pain medications as directed, and understands the consequences of over-medication. Obesity - chronic issue with this patient. The pt has been counseled about diet changes, calorie restriction, and need to exercise. Pt will RTC in one month for weight check. . Chronic Pain Syndrome - pt has chronic pain - has been maintained on current medications, has not sought out other medications, only uses PRN pain medications as directed, and understands the consequences of over-medication. Obesity - chronic issue with this patient. The pt has been counseled about diet changes, calorie restriction, and need to exercise. Pt will RTC in one month for weight check. . Chronic Pain Syndrome - pt has chronic pain - has been maintained on current medications, has not sought out other medications, only uses PRN pain medications as directed, and understands the consequences of over-medication. Hot flashes, decreased libido - stop compound hormone cream and restart previous hormones. pt is to notify clinic with any questions or concerns. . Chronic Pain Syndrome - pt has chronic pain - has been maintained on current medications, has not sought out other medications, only uses PRN pain medications as directed, and understands the consequences of over-medication. Obesity - chronic issue with this patient. The pt has been counseled about diet changes, calorie restriction, and need to exercise. Pt will RTC in one month for weight check. . Obesity - chronic issue with this patient. The pt has been counseled about diet changes, calorie restriction, and need to exercise. Pt will RTC in one month for weight check. . Anxiety - the patient has uncontrolled anxiety and will benefit from an SSRI on a daily basis to attempt control of the symptoms of anxiety (tachycardia, overwhelming sensations, stress, insomnia, etc). Pt is aware of the risks and benefits of treatment with the above medications. Depression - uncontrolled - Pt has been counseled about the diagnosis of depression, the potential causes, and risks associated with the diagnosis. The pt denies suicidal ideation, or plans. The patient has been counseled about treatment options, and understands the risks associated with treatment of depression, as well as the risks associated with NOT treating the depression. I believe the pt will benefit from medical intervention and an antidepressant has been appropriately prescribed for this patient. . Anxiety - the patient has uncontrolled anxiety and will benefit from an SSRI on a daily basis to attempt control of the symptoms of anxiety (tachycardia, overwhelming sensations, stress, insomnia, etc). Pt is aware of the risks and benefits of treatment with the above medications. Depression - uncontrolled - Pt has been counseled about the diagnosis of depression, the potential causes, and risks associated with the diagnosis. The pt denies suicidal ideation, or plans. The patient has been counseled about treatment options, and understands the risks associated with treatment of depression, as well as the risks associated with NOT treating the depression. I believe the pt will benefit from medical intervention and an antidepressant has been appropriately prescribed for this patient. . [facility] haas - ongoing - will send RX - pt is to notify clinic if symptoms do not improve, if they worsen, or with any changes, questions, or concerns. Will refer to Dr. Bassett if symptoms persist. . Well Adult Female - exam completed. Pap and breast exam completed. Pt will be called with results of her testing. She was advised to continue with yearly annual exams. Safe sex practices discussed during office visit today. Call if any abnormal gynecologic issues during the next year, otherwise, RTC yearly or prn. . Well Adult Female - exam completed. Pap and breast exam completed. Pt will be called with results of her testing. She was advised to continue with yearly annual exams. Safe sex practices discussed during office visit today. Call if any abnormal gynecologic issues during the next year, otherwise, RTC yearly or prn. Pt has been on hormone therapy since her total hysterectomy due to endometriosis. Pt has had issues with hot flashes, and more recently decreased libido - her insurance is no longer covering her hormone therapy - will send orders for hormone compounding per pharmacy.
--- OUTSIDE RECORDS SUMMARY | 2019-07-01 06:05 | XMS REPORT | CCD ---
Author Author [facility] Address [address] [place] [address] Phone Care Team Providers Care Job Estimator Name Role Phone PP Unavailable CCM Unavailable Summary Purpose Interface Exchange Insurance Providers Payer name Policy type / Coverage type Covered green party ID Effective Begin Date Effective End Date [employer] [id number] 2018 Unknown Family history Father Diagnosis Age At Onset Diabetes Unknown Hyperlipidemia Unknown Hypertension Unknown Heart Attack Unknown Social History Social History Element Codes Description Effective Dates Marital status Unknown CJ 06/12/2016 Number of children Unknown 3 06/12/[address]: 401821216 Never smoker 06/12/[address]: 005224714 Never drinks alcohol 06/12/2016 Allergies, Adverse Reactions, [...] Start Date Stop Date Status Fill Instructions Lyrica 100 mg capsule RxNorm: 921455 1 Capsule(s) PO BID as needed 06/11/2019 08/09/2019 Active ibuprofen 800 mg tablet RxNorm: 284768 TAKE 1 TABLET BY MOUTH THREE TIMES DAILY NEEDED 06/10/2019 No Stop Date Active hydrocodone 5 mg-acetaminophen 325 mg tablet RxNorm: 969404 1-1.5 Tablet(s) PO QID as needed 05/20/2019 06/18/2019 Active cyclobenzaprine 5 mg tablet RxNorm: 094849 TAKE 1 TABLET BY MOUTH THREE TIMES DAILY NEEDED FOR MUSCLE SPASM 05/18/2019 No Stop Date Active cyclobenzaprine 5 mg tablet RxNorm: 198404 TAKE 1 TABLET BY MOUTH THREE TIMES DAILY NEEDED FOR MUSCLE SPASM 04/24/2019 05/17/2019 Inactive hydrocodone 5 mg-acetaminophen 325 mg tablet RxNorm: 530209 1-1.5 Tablet(s) PO QID as needed 04/21/2019 05/18/2019 Inactive Lexapro 10 mg tablet RxNorm: 306905 TAKE 1 TABLET BY MOUTH ONCE DAILY 03/30/2019 No Stop Date Active hydrocodone 5 mg-acetaminophen 325 mg tablet RxNorm: 629621 1-1.5 Tablet(s) PO QID as needed 03/23/2019 04/20/2019 Inactive prednisolone 15 mg/5 mL oral solution RxNorm: 728424 5 Milliliter(s) PO BID 02/23/2019 02/27/2019 Inactive valacyclovir 1 gram tablet RxNorm: 379010 1 Tablet(s) PO TID 02/23/2019 03/01/2019 Inactive hydrocodone 5 mg-acetaminophen 325 mg tablet RxNorm: 176715 1-1.5 Tablet(s) PO QID as needed 02/23/2019 03/22/2019 Inactive hydrocodone 5 mg-acetaminophen 325 mg tablet RxNorm: 022702 1-1.5 Tablet(s) PO QID as needed 01/28/2019 02/26/2019 Inactive hydrocodone 5 mg-acetaminophen 325 mg tablet RxNorm: 428949 1-1.5 Tablet(s) PO QID as needed 01/01/2019 01/27/2019 Inactive cyclobenzaprine 5 mg tablet RxNorm: 026440 TAKE ONE TABLET BY MOUTH THREE TIMES DAILY NEEDED FOR MUSCLE SPASM 12/16/2018 04/23/2019 Inactive phentermine 37.5 mg tablet RxNorm: 876444 1 Tablet(s) PO daily 11/27/2018 No Stop Date Active Lexapro 10 mg tablet RxNorm: 342283 TAKE 1 TABLET BY MOUTH ONCE DAILY 11/26/2018 03/29/2019 Inactive cyclobenzaprine 5 mg tablet RxNorm: 711836 TAKE ONE TABLET BY MOUTH THREE TIMES DAILY NEEDED FOR MUSCLE SPASM 11/12/2018 12/15/2018 Inactive hydrocodone 5 mg-acetaminophen 325 mg tablet RxNorm: 012240 1-1.5 Tablet(s) PO QID as needed 11/06/2018 12/05/2018 Inactive Lyrica 100 mg capsule RxNorm: 726559 1 Capsule(s) PO BID as needed 10/31/2018 01/28/2019 Inactive pravastatin 20 mg tablet RxNorm: 805232 1 Tablet(s) PO QPM 10/28/2018 02/24/2019 Inactive pravastatin 20 mg tablet RxNorm: 971989 1 Tablet(s) PO QPM 10/28/2018 10/27/2018 Inactive EEMT 1.25 mg-2.5 mg tablet RxNorm: 847309 1 Tablet(s) PO daily 10/09/2018 01/06/2019 Inactive norethindrone acetate 1 mg-ethinyl estradiol 20 mcg tablet RxNorm: 1248503 1 Tablet(s) PO daily 10/09/2018 10/03/2019 Active hydrocodone 5 mg-acetaminophen 325 mg tablet RxNorm: 719198 1-1.5 Tablet(s) PO QID as needed 10/09/2018 11/05/2018 Inactive hydrocodone 5 mg-acetaminophen 325 mg tablet RxNorm: 976893 1-1.5 Tablet(s) PO QID as needed 09/11/2018 10/08/2018 Inactive phentermine 37.5 mg tablet RxNorm: 716499 1 Tablet(s) PO daily 08/29/2018 11/26/2018 Inactive cyclobenzaprine 5 mg tablet RxNorm: 419682 TAKE ONE TABLET BY MOUTH THREE TIMES DAILY NEEDED FOR MUSCLE SPASM 08/27/2018 11/11/2018 Inactive hydrocodone 5 mg-acetaminophen 325 mg tablet RxNorm: 963173 1-1.5 Tablet(s) PO QID as needed 08/14/2018 09/10/2018 Inactive Lexapro 10 mg tablet RxNorm: 659982 1 Tablet(s) PO daily 07/18/2018 08/16/2018 Inactive diazepam 10 mg tablet RxNorm: 718454 1 Tablet(s) PO TID as needed anxiety 07/11/2018 07/14/2018 Inactive Zorvolex 35 mg capsule RxNorm: 7283368 1 Capsule(s) PO TID 06/18/2018 No Stop Date Active hydrocodone 5 mg-acetaminophen 325 mg tablet RxNorm: 965112 1-1.5 Tablet(s) PO QID as needed 06/18/2018 07/17/2018 Inactive cyclobenzaprine 5 mg tablet RxNorm: 118238 TAKE ONE TABLET BY MOUTH THREE TIMES DAILY NEEDED FOR MUSCLE SPASM 06/04/2018 08/26/2018 Inactive hydrocodone 5 mg-acetaminophen 325 mg tablet RxNorm: 140983 1-1.5 Tablet(s) PO QID as needed 05/26/2018 06/17/2018 Inactive cyclobenzaprine 5 mg tablet RxNorm: 645044 TAKE ONE TABLET BY MOUTH THREE TIMES DAILY NEEDED FOR MUSCLE SPASM 05/07/2018 06/03/2018 Inactive hydrocodone 5 mg-acetaminophen 325 mg tablet RxNorm: 830558 1-1.5 Tablet(s) PO QID as needed 04/28/2018 05/25/2018 Inactive ibuprofen 800 mg tablet RxNorm: 603185 TAKE ONE TABLET BY MOUTH THREE TIMES DAILY NEEDED 04/28/2018 06/09/2019 Inactive diazepam 10 mg tablet RxNorm: 095264 1 Tablet(s) PO TID as needed anxiety 04/22/2018 06/19/2018 Inactive hydrocodone 5 mg-acetaminophen 325 mg tablet RxNorm: 984833 1-1.5 Tablet(s) PO QID as needed 03/25/2018 04/23/2018 Inactive cyclobenzaprine 5 mg tablet RxNorm: 009031 TAKE ONE TABLET BY MOUTH THREE TIMES DAILY NEEDED FOR MUSCLE SPASM 03/17/2018 05/06/2018 Inactive hydrocodone 5 mg-acetaminophen 325 mg tablet RxNorm: 502673 1-1.5 Tablet(s) PO QID as needed 03/02/2018 03/24/2018 Inactive phentermine 37.5 mg tablet RxNorm: 106226 1 Tablet(s) PO daily 03/02/2018 08/28/2018 Inactive hydrocodone 5 mg-acetaminophen 325 mg tablet RxNorm: 873433 1-1.5 Tablet(s) PO QID as needed 02/03/2018 03/01/2018 Inactive diazepam 10 mg tablet RxNorm: 543507 1 Tablet(s) PO TID as needed anxiety 01/01/2018 02/28/2018 Inactive hydrocodone 5 mg-acetaminophen 325 mg tablet RxNorm: 610925 1-1.5 Tablet(s) PO QID as needed 12/09/2017 01/07/2018 Inactive ibuprofen 800 mg tablet RxNorm: 936176 1 Tablet(s) PO TID as needed 12/09/2017 01/07/2018 Inactive Lyrica 100 mg capsule RxNorm: 550639 1 Capsule(s) PO BID as needed 12/09/2017 03/07/2018 Inactive cyclobenzaprine 5 mg tablet RxNorm: 409246 TAKE ONE TABLET BY MOUTH THREE TIMES DAILY NEEDED FOR MUSCLE SPASM 12/03/2017 03/16/2018 Inactive hydrocodone 5 mg-acetaminophen 325 mg tablet RxNorm: 068215 1-1.5 Tablet(s) PO QID as needed 10/21/2017 11/19/2017 Inactive hydrocodone 7.5 mg-acetaminophen 325 mg tablet RxNorm: 731661 1 Tablet(s) PO QID as needed 09/26/2017 10/20/2017 Inactive phentermine 37.5 mg tablet RxNorm: 798518 1 Tablet(s) PO daily 09/26/2017 10/01/2017 Inactive Lyrica 100 mg capsule RxNorm: 413396 1 Capsule(s) PO BID as needed 09/12/2017 12/08/2017 Inactive hydrocodone 7.5 mg-acetaminophen 325 mg tablet RxNorm: 365063 1 Tablet(s) PO QID as needed 08/27/2017 09/23/2017 Inactive Belviq XR 20 mg tablet,extended release RxNorm: 8932483 1 Tablet(s) PO daily 08/27/2017 09/23/2017 Inactive cyclobenzaprine 5 mg tablet RxNorm: 858983 1 Tablet(s) PO TID as needed muscle spasms 08/19/2017 08/23/2017 Inactive hydrocodone 7.5 mg-acetaminophen 325 mg tablet RxNorm: 395872 1 Tablet(s) PO QID as needed 08/02/2017 08/26/2017 Inactive hydrocodone 7.5 mg-acetaminophen 325 mg tablet RxNorm: 196878 1 Tablet(s) PO TID as needed 08/02/2017 08/01/2017 Inactive diazepam 10 mg tablet RxNorm: 953836 1 Tablet(s) PO TID as needed anxiety 07/24/2017 02/02/2018 Inactive hydrocodone 7.5 mg-acetaminophen 325 mg tablet RxNorm: 804554 1 Tablet(s) PO TID as needed 07/11/2017 08/01/2017 Inactive Lyrica 100 mg capsule RxNorm: 380324 1 Capsule(s) PO BID as needed 06/24/2017 09/20/2017 Inactive hydrocodone 5 mg-acetaminophen 325 mg tablet RxNorm: 116002 1 Tablet(s) PO TID 06/24/2017 07/30/2017 Inactive prednisone 10 mg tablet RxNorm: 284778 1 Tablet(s) PO daily 06/18/2017 06/17/2017 Inactive 6-5-4-3-2-1 then stop prednisone 10 mg tablet RxNorm: 172338 1 Tablet(s) PO daily 06/18/2017 08/25/2017 Inactive 6-5-4-3-2-1 then stop Bactrim DS 800 mg-160 mg tablet RxNorm: 964843 1 Tablet(s) PO BID 06/11/2017 06/14/2017 Inactive Bactrim DS 800 mg-160 mg tablet RxNorm: 730495 1 Tablet(s) PO BID 06/03/2017 06/10/2017 Inactive mupirocin 2 % topical ointment RxNorm: 638576 1 Application TOP BID 06/03/2017 08/25/2017 Inactive Lyrica 100 mg capsule RxNorm: 024167 1 Capsule(s) PO BID as needed 05/27/2017 06/23/2017 Inactive Keflex 500 mg capsule RxNorm: 381711 1 Capsule(s) PO TID 05/27/2017 06/02/2017 Inactive Lexapro 10 mg tablet RxNorm: 102608 1 Tablet(s) PO daily 05/27/2017 08/25/2017 Inactive hydrocodone 5 mg-acetaminophen 325 mg tablet RxNorm: 589853 1 Tablet(s) PO TID 05/27/2017 06/23/2017 Inactive hydrocodone 7.5 mg-acetaminophen 325 mg tablet RxNorm: 122090 1 Tablet(s) PO TID as needed 05/13/2017 05/25/2017 Inactive hydrocodone 7.5 mg-acetaminophen 325 mg tablet RxNorm: 275389 1 Tablet(s) PO TID as needed 05/13/2017 05/12/2017 Inactive cyclobenzaprine 5 mg tablet RxNorm: 025596 TAKE ONE TABLET BY MOUTH THREE TIMES DAILY NEEDED FOR MUSCLE SPASM 05/01/2017 05/05/2017 Inactive hydrocodone 5 mg-acetaminophen 325 mg tablet RxNorm: 313411 1 Tablet(s) PO TID as needed 04/24/2017 05/12/2017 Inactive cyclobenzaprine 5 mg tablet RxNorm: 352022 1 Tablet(s) PO TID as needed muscle spasms 04/24/2017 04/28/2017 Inactive diazepam 10 mg tablet RxNorm: 914045 1 Tablet(s) PO TID as needed anxiety 02/22/2017 04/19/2017 Inactive norethindrone acetate 1 mg-ethinyl estradiol 20 mcg tablet RxNorm: 9777874 1 Tablet(s) PO daily 12/18/2016 07/15/2017 Inactive EEMT 1.25 mg-2.5 mg tablet RxNorm: 398665 1 Tablet(s) PO daily 12/06/2016 03/05/2017 Inactive EEMT 1.25 mg-2.5 mg tablet RxNorm: 497473 1 Tablet(s) PO daily 12/06/2016 12/05/2016 Inactive Lexapro 10 mg tablet RxNorm: 988535 1 Tablet(s) PO daily 12/06/2016 05/04/2017 Inactive diazepam 10 mg tablet RxNorm: 889036 1 Tablet(s) PO TID 11/09/2016 12/07/2016 Inactive phentermine 37.5 mg tablet RxNorm: 706276 1 Tablet(s) PO daily 10/25/2016 08/23/2017 Inactive EEMT 1.25 mg-2.5 mg tablet RxNorm: 329718 1 Tablet(s) PO daily 10/25/2016 12/05/2016 Inactive phentermine 37.5 mg tablet RxNorm: 189046 1 Tablet(s) PO daily 09/20/2016 10/24/2016 Inactive Lexapro 10 mg tablet RxNorm: 946495 1 Tablet(s) PO daily 07/10/2016 12/05/2016 Inactive Lexapro 10 mg tablet RxNorm: 146502 1 Tablet(s) PO daily 06/12/2016 07/09/2016 Inactive norethindrone acetate 1 mg-ethinyl estradiol 20 mcg tablet RxNorm: 4634667 1 Tablet(s) PO daily 06/12/2016 12/17/2016 Inactive hydrocodone 10 mg-acetaminophen 325 mg tablet RxNorm: 954581 1 Tablet(s) PO TID No Start Date 05/12/2017 Inactive phentermine 37.5 mg tablet RxNorm: 216377 1 Tablet(s) PO daily No Start Date 09/19/2016 Inactive norethindrone acetate 1 mg-ethinyl estradiol 20 mcg tablet RxNorm: 7032955 1 Tablet(s) PO daily No Start Date 06/11/2016 Inactive EEMT 1.25 mg-2.5 mg tablet RxNorm: 410637 1 Tablet(s) PO daily No Start Date [...] intact 02/23/2019 None Full Exam - General 1995 Constitutional general appearance Overall: well developed 12/08/2018 None Full Exam - General 1994 Constitutional general appearance Overall: in no acute distress 12/08/2018 None Full Exam - General 1995 Constitutional general appearance Overall: well nourished 12/08/2018 [...] 1: 142/72 Code: 8480-6 BMI: 30.9 Code: 41380-6 Heart Rate 1: 82 bpm Height: 5'2" SpO2: 98% Weight: 169 lbs 12/08/2018 Blood Pressure 1: 130/74 Code: 8480-6 BMI: 30.7 Code: 29509-9 Heart Rate 1: 82 bpm Height: 5'2" SpO2: 97% Weight: 168 lbs 11/27/2018 Blood Pressure 1: 130/74 Code: 8480-6 Weight: 168 lbs 10/09/2018 Blood Pressure 1: 128/74 Code: 8480-6 BMI: 31.1 Code: 07007-0 Heart Rate 1: 81 bpm Height: 5'2" SpO2: 97% Weight: 170 lbs 08/29/2018 Blood Pressure 1: 120/70 Code: 8480-6 BMI: 31.1 Code: 61892-6 Heart Rate 1: 65 bpm Height: 5'2" Weight: 170 lbs 07/18/2018 Blood Pressure 1: 126/88 Code: 8480-6 Heart Rate 1: 78 bpm Height: SpO2: 97% Weight: 07/16/2018 Blood Pressure 1: 130/78 Code: 8480-6 Heart Rate 1: 84 bpm Weight: 172 lbs 06/18/2018 Blood Pressure 1: 128/80 Code: 8480-6 BMI: 31.1 Code: 37499-2 Heart Rate 1: 80 bpm Height: 5'2" SpO2: 97% Weight: 170 lbs 02/28/2018 Blood Pressure 1: 120/78 Code: 8480-6 BMI: 31.6 Code: 43289-4 Heart Rate 1: 66 bpm Height: 5'2" SpO2: 98% Weight: 173 lbs 12/09/2017 Blood Pressure 1: 116/74 Code: 8480-6 BMI: 31.5 Code: 04386-0 Heart Rate 1: 74 bpm Height: 5'2" SpO2: 95% Weight: 172 lbs 10/21/2017 Blood Pressure 1: 136/82 Code: 8480-6 BMI: 30.4 Code: 89552-0 Heart Rate 1: 79 bpm Height: 5'2" SpO2: 97% Weight: 166 lbs 09/26/2017 Blood Pressure 1: 122/80 Code: 8480-6 BMI: 30.4 Code: 84357-3 Heart Rate 1: 63 bpm Height: 5'2" SpO2: 98% Weight: 166 lbs 08/27/2017 Blood Pressure 1: 132/70 Code: 8480-6 BMI: 30.7 Code: 87433-1 Heart Rate 1: 89 bpm Height: 5'2" SpO2: 98% Weight: 168 lbs 05/27/2017 Blood Pressure 1: 132/72 Code: 8480-6 BMI: 28.9 Code: 83743-5 Heart Rate 1: 72 bpm Height: 5'2" SpO2: 98% Weight: 158 lbs 04/24/2017 Blood Pressure 1: 140/76 Code: 8480-6 BMI: 29.3 Code: 78690-8 Heart Rate 1: 77 bpm Height: 5'2" SpO2: 97% Weight: 160 lbs 03/27/2017 Blood Pressure 1: 128/74 Code: 8480-6 BMI: 29.1 Code: 67752-7 Heart Rate 1: 74 bpm Height: 5'2" SpO2: 98% Temperature: 36.8 (C) / 98.3 (F) Weight: 159 lbs 10/25/2016 Blood Pressure 1: 116/74 Code: 8480-6 BMI: 28.9 Code: 94156-1 Heart Rate 1: 68 bpm Height: 5'2" SpO2: 99% Weight: 158 lbs 09/20/2016 Blood Pressure 1: 116/70 Code: 8480-6 Heart Rate 1: 72 bpm Weight: 150 lbs 08/24/2016 Blood Pressure 1: 118/62 Code: 8480-6 BMI: 27.6 Code: 53477-4 Heart Rate 1: 63 bpm Height: 5'2" SpO2: 99% Weight: 151 lbs 06/12/2016 Blood Pressure 1: 122/74 Code: 8480-6 BMI: 26.9 Code: 97834-9 Heart Rate 1: 52 bpm Height: 5'2" [...] (18-39 years) Menstrual History last menstrual period -__ 03/27/2017 None well woman exam (18-39 [...] data Encounters Encounter Performer Location Codes Date 99620 EST. PATIENT, LEVEL III Diagnosis: Recurrent oral aphthae[ICD10: K12.0] [facility] CPT- 4: 07903 02/23/2019 59342 EST. PATIENT, LEVEL III Diagnosis: Chronic pain syndrome[ICD10: G89.4] Veda Jama MD, [facility] CPT- 4: 47155 12/08/2018 ([id number]) Miscellaneous no charge Diagnosis: Overweight[ICD10: E66.3] Juju Jama MD, [facility] CPT-4: 37544 11/27/2018 51972 EST. PATIENT, LEVEL III Diagnosis: Chronic pain syndrome[ICD10: G89.4] Diagnosis: Menopausal and female climacteric states[ICD10: N95.1] Veda Jama MD, [facility] CPT-4: 81914 10/09/2018 ([id number]) Miscellaneous no charge Diagnosis: Overweight[ICD10: E66.3] Juju Jama MD, [facility] CPT-4: 82505 08/29/2018 13249 EST. PATIENT, LEVEL III Diagnosis: Generalized anxiety disorder[ICD10: F41.1] Diagnosis: Major depressive disorder, single episode, moderate[ICD10: F32.1] Veda Jama MD, [facility] CPT-4: 54696 07/18/2018 ([id number]) Miscellaneous no charge Diagnosis: Overweight[ICD10: E66.3] Juju Jama MD, [facility] CPT-4: 55318 07/16/2018 09740 EST. PATIENT, LEVEL III Diagnosis: Chronic pain syndrome[ICD10: G89.4] Diagnosis: Overweight[ICD10: E66.3] Veda Jama MD, [facility] CPT-4: 14401 06/18/2018 92653 EST. PATIENT, LEVEL IV Diagnosis: Chronic pain syndrome[ICD10: G89.4] Diagnosis: Overweight[ICD10: E66.3] Veda Jama MD, [facility] CPT-4: 41627 02/28/2018 76926 EST. PATIENT, LEVEL III Diagnosis: Chronic pain syndrome[ICD10: G89.4] Diagnosis: Overweight[ICD10: E66.3] Veda Jama MD, [facility] CPT-4: 11808 12/09/2017 72902 EST. PATIENT, LEVEL III Diagnosis: Chronic pain syndrome[ICD10: G89.4] Diagnosis: Overweight[ICD10: E66.3] Veda Jama MD, [facility] CPT-4: 47134 10/21/2017 ([id number]) Miscellaneous no charge Diagnosis: Overweight[ICD10: E66.3] Juju Jama MD [facility] CPT-4: 11626 09/26/2017 87147 EST. PATIENT, LEVEL III Diagnosis: Chronic pain syndrome[ICD10: G89.4] Diagnosis: Overweight[ICD10: E66.3] Veda Jama MD, [facility] CPT-4: 14554 08/27/2017 74815 EST. PATIENT, LEVEL III Diagnosis: Chronic pain syndrome[ICD10: G89.4] Diagnosis: Generalized anxiety disorder[ICD10: F41.1] Diagnosis: Major depressive disorder, single episode, moderate[ICD10: F32.1] Diagnosis: Cellulitis of right lower limb[ICD10: L03.115] Veda Jama MD, [facility] CPT-4: 09868 05/27/2017 ([id number]) 01825 EST. PATIENT, LEVEL IV Diagnosis: Generalized anxiety disorder[ICD10: F41.1] Diagnosis: Major depressive disorder, single episode, moderate[ICD10: F32.1] Diagnosis: Menopausal and female climacteric states[ICD10: N95.1] Diagnosis: Chronic pain syndrome[ICD10: G89.4] Veda Jama MD, [facility] CPT- 4: 61217 04/24/2017 ([id number]) PREV VISIT EST AGE 18-39 Diagnosis: Encounter for gynecological examination (general) (routine) without abnormal findings[ICD10: Z01.419] Veda Jama MD, [facility] CPT-4: 29304 03/27/2017 ([id number]) 93857 EST. PATIENT, LEVEL III Diagnosis: Overweight[ICD10: E66.3] Veda Jama MD, [facility] CPT-4: 93378 10/25/2016 ([id number]) Miscellaneous no charge Diagnosis: Overweight[ICD10: E66.3] Radha Jama MD, [facility] CPT-4: 23142 09/20/2016 83237 EST. PATIENT, LEVEL IV Diagnosis: Other fatigue[ICD10: R53.83] Diagnosis: Overweight[ICD10: E66.3] Diagnosis: Generalized anxiety disorder[ICD10: F41.1] [facility] CPT-4: 78194 08/24/2016 ([id number]) OFFICE VISIT, NEW - LEVEL 4 Diagnosis: Generalized anxiety disorder[ICD10: F41.1] Diagnosis: Major depressive disorder, single episode, moderate[ICD10: F32.1] [facility] CPT-4: 69067 06/12/2016 Plan of Care Planned Activity Notes Codes Status Date Visit Plan: Princess haas - ongoing - will send RX - pt is to notify clinic if symptoms do not improve, if they worsen, or with any changes, questions, or concerns. Will refer to Dr. Bassett if symptoms persist. 02/23/2019 Appointment: Veda Duenas WPtel: [address] [place], [place] [id number] (30 min) Complex 02/23/2019 Patient Education: Patient Medication Summary Completed 02/23/2019 Visit Plan: Chronic Pain Syndrome - pt has chronic pain - has been maintained on current medications, has not sought out other medications, only uses PRN pain medications as directed, and understands the consequences of over-medication. 12/08/2018 Appointment: Veda Duenas WPtel: [address] [place], [place] [phone] (30 min) Complex 12/08/2018 Patient Education: Patient [...] or concerns. 10/09/2018 Appointment: Veda Duenas WPtel: [facility] (15 min) Moderate 10/09/2018 Patient Education: Patient [...] prescribed for this patient. 07/18/2018 Appointment: Veda Duenastel: [facility] [address] (15 min) Moderate 07/18/2018 Patient Education: Patient [...] weight check. 06/18/2018 Appointment: Veda Duenas WPtel: [facility] (15 min) Moderate 06/18/2018 Patient Education: Patient [...] weight check. 02/28/2018 Appointment: Veda Duenas WPtel: [facility] (30 min) Complex 02/28/2018 Patient Education: Patient Medication Summary Completed 02/28/2018 Patient Education: Obesity Completed 02/28/2018 Appointment: Veda Duenas WPtel: [address] [place], [place] [phone] (15 min) Moderate 02/27/2018 Visit Plan: Chronic [...] weight check. 12/09/2017 Appointment: Veda Duenas WPtel: [address] [place], [place] [phone] (15 min) Moderate 12/09/2017 Patient Education: Patient [...] weight check. 10/21/2017 Appointment: Veda Duenas WPtel: [address] [place], [place] [phone] (15 min) Moderate 10/21/2017 Patient Education: Patient Medication Summary Completed 10/21/2017 Patient Education: Obesity Completed 10/21/2017 Appointment: Nurse Visit 09/26/2017 Patient Education: Patient Medication Summary Completed 09/26/2017 Appointment: Veda Duenas WPtel: [address] [place], [place] [phone] (30 min) Complex 08/30/2017 Visit Plan: Chronic [...] warmth, discharge. 05/27/2017 Appointment: Veda Duenas WPtel: [address] [place], [place] [phone] (30 min) Complex 05/27/2017 Patient Education: Patient [...] new RX. 04/24/2017 Appointment: Veda Duenas WPtel: [facility] (30 min) Complex 04/24/2017 Patient Education: Patient [...] per pharmacy. 03/27/2017 Appointment: Veda Duenas WPtel: [facility] [facility] 03/27/2017 Patient Education: Patient Medication Summary Completed 03/27/2017 Care Plan: BMI Above normal followup SELF-MGMT EDUC & TRAIN 1 PT Pending 11/07/2016 Visit Plan: Obesity - chronic issue with this patient. The pt has been counseled about diet changes, calorie restriction, and need to exercise. Pt will RTC in one month for weight check. 10/25/2016 Appointment: [facility] (15 min) Moderate 10/25/2016 Patient Education: Patient [...] weight check. 08/24/2016 Appointment: Radha Mcgowan WPtel: [facility] [place] [address] (30 min) Complex 08/24/2016 Appointment: Radha Mcgowan WPtel: [facility] [place] [address] (30 min) Complex 08/24/2016 Appointment: Radha Mcgowan WPtel: [phone] (30 min) Complex 08/24/2016 Patient Education: Patient [...] for this patient. 06/12/2016 Appointment: Radha Mcgowantel: [phone] New Patient 06/12/2016 Patient Education: Patient Medication [...]
--- OUTSIDE RECORDS SUMMARY | 2019-07-01 06:06 | XMS REPORT | CCD ---
Author Author [facility] Address [address] [place] [address] Phone Care Team Providers Care Material Manager Name Role Phone PP Unavailable CCM Unavailable Summary Purpose Interface Exchange Insurance Providers Payer name Policy type / Coverage type Covered alliance party ID Effective Begin Date Effective End Date [employer] [id number] 2018 Unknown Family history Father Diagnosis Age At Onset Diabetes Unknown Hyperlipidemia Unknown Hypertension Unknown Heart Attack Unknown Social History Social History Element Codes Description Effective Dates Marital status Unknown CJ 06/12/2016 Number of children Unknown 3 06/12/[address]: 540827141 Never smoker 06/12/[address]: 463141854 Never drinks alcohol 06/12/2016 Allergies, Adverse Reactions, [...] Start Date Stop Date Status Fill Instructions ibuprofen 800 mg tablet RxNorm: 145084 TAKE 1 TABLET BY MOUTH THREE TIMES DAILY NEEDED 06/10/2019 No Stop Date Active hydrocodone 5 mg-acetaminophen 325 mg tablet RxNorm: 738999 1-1.5 Tablet(s) PO QID as needed 05/20/2019 06/18/2019 Active cyclobenzaprine 5 mg tablet RxNorm: 064171 TAKE 1 TABLET BY MOUTH THREE TIMES DAILY NEEDED FOR MUSCLE SPASM 05/18/2019 No Stop Date Active cyclobenzaprine 5 mg tablet RxNorm: 917766 TAKE 1 TABLET BY MOUTH THREE TIMES DAILY NEEDED FOR MUSCLE SPASM 04/24/2019 05/17/2019 Inactive hydrocodone 5 mg-acetaminophen 325 mg tablet RxNorm: 659466 1-1.5 Tablet(s) PO QID as needed 04/21/2019 05/18/2019 Inactive Lexapro 10 mg tablet RxNorm: 374214 TAKE 1 TABLET BY MOUTH ONCE DAILY 03/30/2019 No Stop Date Active hydrocodone 5 mg-acetaminophen 325 mg tablet RxNorm: 117306 1-1.5 Tablet(s) PO QID as needed 03/23/2019 04/20/2019 Inactive prednisolone 15 mg/5 mL oral solution RxNorm: 147510 5 Milliliter(s) PO BID 02/23/2019 02/27/2019 Inactive valacyclovir 1 gram tablet RxNorm: 259101 1 Tablet(s) PO TID 02/23/2019 03/01/2019 Inactive hydrocodone 5 mg-acetaminophen 325 mg tablet RxNorm: 306846 1-1.5 Tablet(s) PO QID as needed 02/23/2019 03/22/2019 Inactive hydrocodone 5 mg-acetaminophen 325 mg tablet RxNorm: 262083 1-1.5 Tablet(s) PO QID as needed 01/28/2019 02/26/2019 Inactive hydrocodone 5 mg-acetaminophen 325 mg tablet RxNorm: 675375 1-1.5 Tablet(s) PO QID as needed 01/01/2019 01/27/2019 Inactive cyclobenzaprine 5 mg tablet RxNorm: 752886 TAKE ONE TABLET BY MOUTH THREE TIMES DAILY NEEDED FOR MUSCLE SPASM 12/16/2018 04/23/2019 Inactive phentermine 37.5 mg tablet RxNorm: 233297 1 Tablet(s) PO daily 11/27/2018 No Stop Date Active Lexapro 10 mg tablet RxNorm: 242225 TAKE 1 TABLET BY MOUTH ONCE DAILY 11/26/2018 03/29/2019 Inactive cyclobenzaprine 5 mg tablet RxNorm: 308873 TAKE ONE TABLET BY MOUTH THREE TIMES DAILY NEEDED FOR MUSCLE SPASM 11/12/2018 12/15/2018 Inactive hydrocodone 5 mg-acetaminophen 325 mg tablet RxNorm: 555627 1-1.5 Tablet(s) PO QID as needed 11/06/2018 12/05/2018 Inactive Lyrica 100 mg capsule RxNorm: 559197 1 Capsule(s) PO BID as needed 10/31/2018 01/28/2019 Inactive pravastatin 20 mg tablet RxNorm: 809998 1 Tablet(s) PO QPM 10/28/2018 02/24/2019 Inactive pravastatin 20 mg tablet RxNorm: 757276 1 Tablet(s) PO QPM 10/28/2018 10/27/2018 Inactive EEMT 1.25 mg-2.5 mg tablet RxNorm: 863951 1 Tablet(s) PO daily 10/09/2018 01/06/2019 Inactive norethindrone acetate 1 mg-ethinyl estradiol 20 mcg tablet RxNorm: 6173190 1 Tablet(s) PO daily 10/09/2018 10/03/2019 Active hydrocodone 5 mg-acetaminophen 325 mg tablet RxNorm: 562400 1-1.5 Tablet(s) PO QID as needed 10/09/2018 11/05/2018 Inactive hydrocodone 5 mg-acetaminophen 325 mg tablet RxNorm: 190154 1-1.5 Tablet(s) PO QID as needed 09/11/2018 10/08/2018 Inactive phentermine 37.5 mg tablet RxNorm: 673584 1 Tablet(s) PO daily 08/29/2018 11/26/2018 Inactive cyclobenzaprine 5 mg tablet RxNorm: 724726 TAKE ONE TABLET BY MOUTH THREE TIMES DAILY NEEDED FOR MUSCLE SPASM 08/27/2018 11/11/2018 Inactive hydrocodone 5 mg-acetaminophen 325 mg tablet RxNorm: 883252 1-1.5 Tablet(s) PO QID as needed 08/14/2018 09/10/2018 Inactive Lexapro 10 mg tablet RxNorm: 942877 1 Tablet(s) PO daily 07/18/2018 08/16/2018 Inactive diazepam 10 mg tablet RxNorm: 401204 1 Tablet(s) PO TID as needed anxiety 07/11/2018 07/14/2018 Inactive Zorvolex 35 mg capsule RxNorm: 7883273 1 Capsule(s) PO TID 06/18/2018 No Stop Date Active hydrocodone 5 mg-acetaminophen 325 mg tablet RxNorm: 702082 1-1.5 Tablet(s) PO QID as needed 06/18/2018 07/17/2018 Inactive cyclobenzaprine 5 mg tablet RxNorm: 073158 TAKE ONE TABLET BY MOUTH THREE TIMES DAILY NEEDED FOR MUSCLE SPASM 06/04/2018 08/26/2018 Inactive hydrocodone 5 mg-acetaminophen 325 mg tablet RxNorm: 495126 1-1.5 Tablet(s) PO QID as needed 05/26/2018 06/17/2018 Inactive cyclobenzaprine 5 mg tablet RxNorm: 194036 TAKE ONE TABLET BY MOUTH THREE TIMES DAILY NEEDED FOR MUSCLE SPASM 05/07/2018 06/03/2018 Inactive hydrocodone 5 mg-acetaminophen 325 mg tablet RxNorm: 193535 1-1.5 Tablet(s) PO QID as needed 04/28/2018 05/25/2018 Inactive ibuprofen 800 mg tablet RxNorm: 625444 TAKE ONE TABLET BY MOUTH THREE TIMES DAILY NEEDED 04/28/2018 06/09/2019 Inactive diazepam 10 mg tablet RxNorm: 788145 1 Tablet(s) PO TID as needed anxiety 04/22/2018 06/19/2018 Inactive hydrocodone 5 mg-acetaminophen 325 mg tablet RxNorm: 695048 1-1.5 Tablet(s) PO QID as needed 03/25/2018 04/23/2018 Inactive cyclobenzaprine 5 mg tablet RxNorm: 784177 TAKE ONE TABLET BY MOUTH THREE TIMES DAILY NEEDED FOR MUSCLE SPASM 03/17/2018 05/06/2018 Inactive hydrocodone 5 mg-acetaminophen 325 mg tablet RxNorm: 124625 1-1.5 Tablet(s) PO QID as needed 03/02/2018 03/24/2018 Inactive phentermine 37.5 mg tablet RxNorm: 826657 1 Tablet(s) PO daily 03/02/2018 08/28/2018 Inactive hydrocodone 5 mg-acetaminophen 325 mg tablet RxNorm: 335128 1-1.5 Tablet(s) PO QID as needed 02/03/2018 03/01/2018 Inactive diazepam 10 mg tablet RxNorm: 465819 1 Tablet(s) PO TID as needed anxiety 01/01/2018 02/28/2018 Inactive hydrocodone 5 mg-acetaminophen 325 mg tablet RxNorm: 448181 1-1.5 Tablet(s) PO QID as needed 12/09/2017 01/07/2018 Inactive ibuprofen 800 mg tablet RxNorm: 269998 1 Tablet(s) PO TID as needed 12/09/2017 01/07/2018 Inactive Lyrica 100 mg capsule RxNorm: 783221 1 Capsule(s) PO BID as needed 12/09/2017 03/07/2018 Inactive cyclobenzaprine 5 mg tablet RxNorm: 170785 TAKE ONE TABLET BY MOUTH THREE TIMES DAILY NEEDED FOR MUSCLE SPASM 12/03/2017 03/16/2018 Inactive hydrocodone 5 mg-acetaminophen 325 mg tablet RxNorm: 805164 1-1.5 Tablet(s) PO QID as needed 10/21/2017 11/19/2017 Inactive hydrocodone 7.5 mg-acetaminophen 325 mg tablet RxNorm: 584695 1 Tablet(s) PO QID as needed 09/26/2017 10/20/2017 Inactive phentermine 37.5 mg tablet RxNorm: 394946 1 Tablet(s) PO daily 09/26/2017 10/01/2017 Inactive Lyrica 100 mg capsule RxNorm: 591554 1 Capsule(s) PO BID as needed 09/12/2017 12/08/2017 Inactive hydrocodone 7.5 mg-acetaminophen 325 mg tablet RxNorm: 637544 1 Tablet(s) PO QID as needed 08/27/2017 09/23/2017 Inactive Belviq XR 20 mg tablet,extended release RxNorm: 2554305 1 Tablet(s) PO daily 08/27/2017 09/23/2017 Inactive cyclobenzaprine 5 mg tablet RxNorm: 324844 1 Tablet(s) PO TID as needed muscle spasms 08/19/2017 08/23/2017 Inactive hydrocodone 7.5 mg-acetaminophen 325 mg tablet RxNorm: 537591 1 Tablet(s) PO QID as needed 08/02/2017 08/26/2017 Inactive hydrocodone 7.5 mg-acetaminophen 325 mg tablet RxNorm: 614976 1 Tablet(s) PO TID as needed 08/02/2017 08/01/2017 Inactive diazepam 10 mg tablet RxNorm: 755149 1 Tablet(s) PO TID as needed anxiety 07/24/2017 02/02/2018 Inactive hydrocodone 7.5 mg-acetaminophen 325 mg tablet RxNorm: 407199 1 Tablet(s) PO TID as needed 07/11/2017 08/01/2017 Inactive Lyrica 100 mg capsule RxNorm: 243193 1 Capsule(s) PO BID as needed 06/24/2017 09/20/2017 Inactive hydrocodone 5 mg-acetaminophen 325 mg tablet RxNorm: 967467 1 Tablet(s) PO TID 06/24/2017 07/30/2017 Inactive prednisone 10 mg tablet RxNorm: 894383 1 Tablet(s) PO daily 06/18/2017 06/17/2017 Inactive 6-5-4-3-2-1 then stop prednisone 10 mg tablet RxNorm: 403557 1 Tablet(s) PO daily 06/18/2017 08/25/2017 Inactive 6-5-4-3-2-1 then stop Bactrim DS 800 mg-160 mg tablet RxNorm: 730414 1 Tablet(s) PO BID 06/11/2017 06/14/2017 Inactive Bactrim DS 800 mg-160 mg tablet RxNorm: 262767 1 Tablet(s) PO BID 06/03/2017 06/10/2017 Inactive mupirocin 2 % topical ointment RxNorm: 060725 1 Application TOP BID 06/03/2017 08/25/2017 Inactive Lyrica 100 mg capsule RxNorm: 352733 1 Capsule(s) PO BID as needed 05/27/2017 06/23/2017 Inactive Keflex 500 mg capsule RxNorm: 537410 1 Capsule(s) PO TID 05/27/2017 06/02/2017 Inactive Lexapro 10 mg tablet RxNorm: 182346 1 Tablet(s) PO daily 05/27/2017 08/25/2017 Inactive hydrocodone 5 mg-acetaminophen 325 mg tablet RxNorm: 064730 1 Tablet(s) PO TID 05/27/2017 06/23/2017 Inactive hydrocodone 7.5 mg-acetaminophen 325 mg tablet RxNorm: 192075 1 Tablet(s) PO TID as needed 05/13/2017 05/25/2017 Inactive hydrocodone 7.5 mg-acetaminophen 325 mg tablet RxNorm: 656291 1 Tablet(s) PO TID as needed 05/13/2017 05/12/2017 Inactive cyclobenzaprine 5 mg tablet RxNorm: 130995 TAKE ONE TABLET BY MOUTH THREE TIMES DAILY NEEDED FOR MUSCLE SPASM 05/01/2017 05/05/2017 Inactive hydrocodone 5 mg-acetaminophen 325 mg tablet RxNorm: 778227 1 Tablet(s) PO TID as needed 04/24/2017 05/12/2017 Inactive cyclobenzaprine 5 mg tablet RxNorm: 809900 1 Tablet(s) PO TID as needed muscle spasms 04/24/2017 04/28/2017 Inactive diazepam 10 mg tablet RxNorm: 753551 1 Tablet(s) PO TID as needed anxiety 02/22/2017 04/19/2017 Inactive norethindrone acetate 1 mg-ethinyl estradiol 20 mcg tablet RxNorm: 3448883 1 Tablet(s) PO daily 12/18/2016 07/15/2017 Inactive EEMT 1.25 mg-2.5 mg tablet RxNorm: 872186 1 Tablet(s) PO daily 12/06/2016 03/05/2017 Inactive EEMT 1.25 mg-2.5 mg tablet RxNorm: 540760 1 Tablet(s) PO daily 12/06/2016 12/05/2016 Inactive Lexapro 10 mg tablet RxNorm: 022056 1 Tablet(s) PO daily 12/06/2016 05/04/2017 Inactive diazepam 10 mg tablet RxNorm: 796514 1 Tablet(s) PO TID 11/09/2016 12/07/2016 Inactive phentermine 37.5 mg tablet RxNorm: 583344 1 Tablet(s) PO daily 10/25/2016 08/23/2017 Inactive EEMT 1.25 mg-2.5 mg tablet RxNorm: 838384 1 Tablet(s) PO daily 10/25/2016 12/05/2016 Inactive phentermine 37.5 mg tablet RxNorm: 306065 1 Tablet(s) PO daily 09/20/2016 10/24/2016 Inactive Lexapro 10 mg tablet RxNorm: 496861 1 Tablet(s) PO daily 07/10/2016 12/05/2016 Inactive Lexapro 10 mg tablet RxNorm: 428546 1 Tablet(s) PO daily 06/12/2016 07/09/2016 Inactive norethindrone acetate 1 mg-ethinyl estradiol 20 mcg tablet RxNorm: 7562198 1 Tablet(s) PO daily 06/12/2016 12/17/2016 Inactive hydrocodone 10 mg-acetaminophen 325 mg tablet RxNorm: 573214 1 Tablet(s) PO TID No Start Date 05/12/2017 Inactive phentermine 37.5 mg tablet RxNorm: 506535 1 Tablet(s) PO daily No Start Date 09/19/2016 Inactive norethindrone acetate 1 mg-ethinyl estradiol 20 mcg tablet RxNorm: 7761078 1 Tablet(s) PO daily No Start Date 06/11/2016 Inactive EEMT 1.25 mg-2.5 mg tablet RxNorm: 507436 1 Tablet(s) PO daily No Start Date [...] developed 12/08/2018 None Full Exam - General 1995 Constitutional general appearance Overall: in no acute [...] lips 02/28/2018 None Full Exam - General 1995 Ears/Nose/Throat oral cavity/pharynx/larynx Overall: oral mucosa clear [...] 1: 142/72 Code: 8480-6 BMI: 30.9 Code: 29319-8 Heart Rate 1: 82 bpm Height: 5'2" SpO2: 98% Weight: 169 lbs 12/08/2018 Blood Pressure 1: 130/74 Code: 8480-6 BMI: 30.7 Code: 72295-8 Heart Rate 1: 82 bpm Height: 5'2" SpO2: 97% Weight: 168 lbs 11/27/2018 Blood Pressure 1: 130/74 Code: 8480-6 Weight: 168 lbs 10/09/2018 Blood Pressure 1: 128/74 Code: 8480-6 BMI: 31.1 Code: 29185-9 Heart Rate 1: 81 bpm Height: 5'2" SpO2: 97% Weight: 170 lbs 08/29/2018 Blood Pressure 1: 120/70 Code: 8480-6 BMI: 31.1 Code: 34126-9 Heart Rate 1: 65 bpm Height: 5'2" Weight: 170 lbs 07/18/2018 Blood Pressure 1: 126/88 Code: 8480-6 Heart Rate 1: 78 bpm Height: SpO2: 97% Weight: 07/16/2018 Blood Pressure 1: 130/78 Code: 8480-6 Heart Rate 1: 84 bpm Weight: 172 lbs 06/18/2018 Blood Pressure 1: 128/80 Code: 8480-6 BMI: 31.1 Code: 01313-8 Heart Rate 1: 80 bpm Height: 5'2" SpO2: 97% Weight: 170 lbs 02/28/2018 Blood Pressure 1: 120/78 Code: 8480-6 BMI: 31.6 Code: 50674-5 Heart Rate 1: 66 bpm Height: 5'2" SpO2: 98% Weight: 173 lbs 12/09/2017 Blood Pressure 1: 116/74 Code: 8480-6 BMI: 31.5 Code: 90235-9 Heart Rate 1: 74 bpm Height: 5'2" SpO2: 95% Weight: 172 lbs 10/21/2017 Blood Pressure 1: 136/82 Code: 8480-6 BMI: 30.4 Code: 30873-0 Heart Rate 1: 79 bpm Height: 5'2" SpO2: 97% Weight: 166 lbs 09/26/2017 Blood Pressure 1: 122/80 Code: 8480-6 BMI: 30.4 Code: 76360-1 Heart Rate 1: 63 bpm Height: 5'2" SpO2: 98% Weight: 166 lbs 08/27/2017 Blood Pressure 1: 132/70 Code: 8480-6 BMI: 30.7 Code: 58371-1 Heart Rate 1: 89 bpm Height: 5'2" SpO2: 98% Weight: 168 lbs 05/27/2017 Blood Pressure 1: 132/72 Code: 8480-6 BMI: 28.9 Code: 58381-8 Heart Rate 1: 72 bpm Height: 5'2" SpO2: 98% Weight: 158 lbs 04/24/2017 Blood Pressure 1: 140/76 Code: 8480-6 BMI: 29.3 Code: 35496-4 Heart Rate 1: 77 bpm Height: 5'2" SpO2: 97% Weight: 160 lbs 03/27/2017 Blood Pressure 1: 128/74 Code: 8480-6 BMI: 29.1 Code: 63596-0 Heart Rate 1: 74 bpm Height: 5'2" SpO2: 98% Temperature: 36.8 (C) / 98.3 (F) Weight: 159 lbs 10/25/2016 Blood Pressure 1: 116/74 Code: 8480-6 BMI: 28.9 Code: 41229-4 Heart Rate 1: 68 bpm Height: 5'2" SpO2: 99% Weight: 158 lbs 09/20/2016 Blood Pressure 1: 116/70 Code: 8480-6 Heart Rate 1: 72 bpm Weight: 150 lbs 08/24/2016 Blood Pressure 1: 118/62 Code: 8480-6 BMI: 27.6 Code: 01359-1 Heart Rate 1: 63 bpm Height: 5'2" SpO2: 99% Weight: 151 lbs 06/12/2016 Blood Pressure 1: 122/74 Code: 8480-6 BMI: 26.9 Code: 44262-7 Heart Rate 1: 52 bpm Height: 5'2" [...] data Encounters Encounter Performer Location Codes Date EST. 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 PATIENT, LEVEL III Diagnosis: Chronic pain syndrome[ICD10: G89.4] Veda Jama MD, [facility] CPT- 4: 24710 12/08/2018 ([id number]) Miscellaneous no charge Diagnosis: Overweight[ICD10: E66.3] Juju Jama MD, [facility] CPT-4: 27289 11/27/2018 94211 EST. PATIENT, LEVEL III Diagnosis: Chronic pain syndrome[ICD10: G89.4] Diagnosis: Menopausal and female climacteric states[ICD10: N95.1] Veda Jama MD, [facility] CPT-4: 02897 10/09/2018 ([id number]) Miscellaneous no charge Diagnosis: Overweight[ICD10: E66.3] Juju Jama MD, [facility] CPT-4: 94381 08/29/2018 60394 EST. PATIENT, LEVEL III Diagnosis: Generalized anxiety disorder[ICD10: F41.1] Diagnosis: Major depressive disorder, single episode, moderate[ICD10: F32.1] Veda Jama MD, [facility] CPT-4: 93546 07/18/2018 ([id number]) Miscellaneous no charge Diagnosis: Overweight[ICD10: E66.3] Juju Jama MD, [facility] CPT-4: 95502 07/16/2018 45840 EST. PATIENT, LEVEL III Diagnosis: Chronic pain syndrome[ICD10: G89.4] Diagnosis: Overweight[ICD10: E66.3] Veda Jama MD, [facility] CPT-4: 92102 06/18/2018 50014 EST. PATIENT, LEVEL IV Diagnosis: Chronic pain syndrome[ICD10: G89.4] Diagnosis: Overweight[ICD10: E66.3] Veda Jama MD, [facility] CPT-4: 84638 02/28/2018 95637 EST. PATIENT, LEVEL III Diagnosis: Chronic pain syndrome[ICD10: G89.4] Diagnosis: Overweight[ICD10: E66.3] Veda Jama MD, [facility] CPT-4: 11496 12/09/2017 49604 EST. PATIENT, LEVEL III Diagnosis: Chronic pain syndrome[ICD10: G89.4] Diagnosis: Overweight[ICD10: E66.3] Veda Jama MD, [facility] CPT-4: 49750 10/21/2017 ([id number]) Miscellaneous no charge Diagnosis: Overweight[ICD10: E66.3] Juju Jama MD, [facility] CPT-4: 75014 09/26/2017 86988 EST. PATIENT, LEVEL III Diagnosis: Chronic pain syndrome[ICD10: G89.4] Diagnosis: Overweight[ICD10: E66.3] Veda Jama MD, [facility] CPT-4: 63024 08/27/2017 65762 EST. PATIENT, LEVEL III Diagnosis: Chronic pain syndrome[ICD10: G89.4] Diagnosis: Generalized anxiety disorder[ICD10: F41.1] Diagnosis: Major depressive disorder, single episode, moderate[ICD10: F32.1] Diagnosis: Cellulitis of right lower limb[ICD10: L03.115] Veda Jama MD, [facility] CPT-4: 19002 05/27/2017 ([id number]) 76325 EST. PATIENT, LEVEL IV Diagnosis: Generalized anxiety disorder[ICD10: F41.1] Diagnosis: Major depressive disorder, single episode, moderate[ICD10: F32.1] Diagnosis: Menopausal and female climacteric states[ICD10: N95.1] Diagnosis: Chronic pain syndrome[ICD10: G89.4] Veda Jama MD, [facility] CPT- 4: 03782 04/24/2017 ([id number]) PREV VISIT EST AGE 18-39 Diagnosis: Encounter for gynecological examination (general) (routine) without abnormal findings[ICD10: Z01.419] Veda Jama MD, [facility] CPT-4: 03081 03/27/2017 ([id number]) 15935 EST. PATIENT, LEVEL III Diagnosis: Overweight[ICD10: E66.3] Veda Jama MD, [facility] CPT-4: 96555 10/25/2016 ([id number]) Miscellaneous no charge Diagnosis: Overweight[ICD10: E66.3] Radha Jama MD, [facility] CPT-4: 75799 09/20/2016 26440 EST. PATIENT, LEVEL IV Diagnosis: Other fatigue[ICD10: R53.83] Diagnosis: Overweight[ICD10: E66.3] Diagnosis: Generalized anxiety disorder[ICD10: F41.1] [facility] CPT-4: 75461 08/24/2016 ([id number]) OFFICE VISIT, NEW - LEVEL 4 Diagnosis: Generalized anxiety disorder[ICD10: F41.1] Diagnosis: Major depressive disorder, single episode, moderate[ICD10: F32.1] [facility] CPT-4: 09488 06/12/2016 Plan of Care Planned Activity Notes Codes Status Date Visit Plan: Princess haas - ongoing - will send RX - pt is to notify clinic if symptoms do not improve, if they worsen, or with any changes, questions, or concerns. Will refer to Dr. Bassett if symptoms persist. 02/23/2019 Appointment: Veda Duenas WPtel: [phone] [facility] (30 min) Complex 02/23/2019 Patient Education: Patient Medication Summary Completed 02/23/2019 Visit Plan: Chronic Pain Syndrome - pt has chronic pain - has been maintained on current medications, has not sought out other medications, only uses PRN pain medications as directed, and understands the consequences of over-medication. 12/08/2018 Appointment: Veda Duenas WPtel: [facility]5 [facility] (30 min) Complex 12/08/2018 Patient Education: Patient [...] or concerns. 10/09/2018 [phone] ([facility]) Moderate 10/09/2018 Patient Education: Patient [...] this patient. 07/18/2018 Appointment: Veda Duenas WPtel: [phone] [facility] (15 min) Moderate 07/18/2018 Patient Education: Patient [...] weight check. 06/18/2018 Appointment: Veda Duenas WPtel: [phone] [facility] (15 min) Moderate 06/18/2018 Patient Education: Patient [...] weight check. 02/28/2018 [phone] ([facility] 02/28/2018 Patient Education: Patient Medication Summary Completed 02/28/2018 Patient Education: Obesity Completed 02/28/2018 [facility]: [phone] [facility] (15 min) Moderate 02/27/2018 Visit Plan: Chronic [...] weight check. 12/09/2017 Appointment: Veda Duenas WPtel: [facility] (15 min) Moderate 12/09/2017 Patient Education: Patient [...] weight check. 10/21/2017 App[facility]ment: [phone] (15 min) Moderate 10/21/2017 Patient Education: Patient Medication Summary Completed 10/21/2017 Patient Education: Obesity Completed 10/21/2017 Appointment: Nurse Visit 09/26/2017 Patient Education: Patient Medication Summary Completed 09/26/2017 App[facility]ment: [phone] [facility] [place] (30 min) Complex 08/30/2017 Visit Plan: [...] warmth, discharge. 05/27/2017 Appointment: Veda Duenas WPtel: [facility] ([facility] min) Complex 05/27/2017 Patient Education: Patient [...] new RX. 04/24/2017 Appointment: Veda Duenas WPtel: [phone] [facility] (30 min) Complex 04/24/2017 Patient Education: [...] hormone compounding per pharmacy. 03/27/2017 Appointment: Veda Duenastel: [facility]5 [facility] 03/27/2017 Patient Education: Patient Medication Summary Completed 03/27/2017 Care Plan: BMI Above normal followup SELF-MGMT EDUC & TRAIN 1 PT Pending 11/07/2016 Visit Plan: Obesity - chronic issue with this patient. The pt has been counseled about diet changes, calorie restriction, and need to exercise. Pt will RTC in one month for weight check. 10/25/2016 Appointment: Veda Duenas WPtel: [facility]5 [facility] (15 min) Moderate 10/25/2016 Patient Education: Patient [...] weight check. 08/24/2016 Appointment: Radha Mcgowan WPtel: [address] [place], [place] [phone] [place] [address] (30 min) Complex 08/24/2016 Appointment: Radha Mcgowan WPtel: [facility] [address] (30 min) Complex 08/24/2016 Appointment: Radha Mcgowantel: [address] [place] [address] (30 min) Complex 08/24/2016 Patient Education: Patient [...] for this patient. 06/12/2016 Appointment: Radha Mcgowantel: [address] [place], [place] [phone] [place] [address] New Patient 06/12/2016 Patient Education: Patient Medication [...]
--- OUTSIDE RECORDS SUMMARY | 2019-07-01 06:08 | XMS REPORT | CCD ---
Author Author [facility] Address [address] [place] [address] Phone Care Team Providers Care Project Development Manager Name Role Phone PP Unavailable CCM Unavailable Summary Purpose Interface Exchange Insurance Providers Payer name Policy type / Coverage type Covered democrat ID Effective Begin Date Effective End Date [employer] [id number] 2018 Unknown Family history Father Diagnosis Age At Onset Diabetes Unknown Hyperlipidemia Unknown Hypertension Unknown Heart Attack Unknown Social History Social History Element Codes Description Effective Dates Marital status Unknown CJ 06/12/2016 Number of children Unknown 3 06/12/[address]: 202766255 Never smoker 06/12/[address]: 805027348 Never drinks alcohol 06/12/2016 Allergies, Adverse Reactions, [...] hydrocodone 5 mg-acetaminophen 325 mg tablet RxNorm: 029666 1-1.5 Tablet(s) PO QID as needed 05/20/2019 06/18/2019 Active cyclobenzaprine 5 mg tablet RxNorm: 988879 TAKE 1 TABLET BY MOUTH THREE TIMES DAILY NEEDED FOR MUSCLE SPASM 05/18/2019 No Stop Date Active cyclobenzaprine 5 mg tablet RxNorm: 422067 TAKE 1 TABLET BY MOUTH THREE TIMES DAILY NEEDED FOR MUSCLE SPASM 04/24/2019 05/17/2019 Inactive hydrocodone 5 mg-acetaminophen 325 mg tablet RxNorm: 213542 1-1.5 Tablet(s) PO QID as needed 04/21/2019 05/18/2019 Inactive Lexapro 10 mg tablet RxNorm: 090579 TAKE 1 TABLET BY MOUTH ONCE DAILY 03/30/2019 No Stop Date Active hydrocodone 5 mg-acetaminophen 325 mg tablet RxNorm: 776995 1-1.5 Tablet(s) PO QID as needed 03/23/2019 04/20/2019 Inactive prednisolone 15 mg/5 mL oral solution RxNorm: 241950 5 Milliliter(s) PO BID 02/23/2019 02/27/2019 Inactive valacyclovir 1 gram tablet RxNorm: 025741 1 Tablet(s) PO TID 02/23/2019 03/01/2019 Inactive hydrocodone 5 mg-acetaminophen 325 mg tablet RxNorm: 048206 1-1.5 Tablet(s) PO QID as needed 02/23/2019 03/22/2019 Inactive hydrocodone 5 mg-acetaminophen 325 mg tablet RxNorm: 087502 1-1.5 Tablet(s) PO QID as needed 01/28/2019 02/26/2019 Inactive hydrocodone 5 mg-acetaminophen 325 mg tablet RxNorm: 983798 1-1.5 Tablet(s) PO QID as needed 01/01/2019 01/27/2019 Inactive cyclobenzaprine 5 mg tablet RxNorm: 778900 TAKE ONE TABLET BY MOUTH THREE TIMES DAILY NEEDED FOR MUSCLE SPASM 12/16/2018 04/23/2019 Inactive phentermine 37.5 mg tablet RxNorm: 596536 1 Tablet(s) PO daily 11/27/2018 No Stop Date Active Lexapro 10 mg tablet RxNorm: 832781 TAKE 1 TABLET BY MOUTH ONCE DAILY 11/26/2018 03/29/2019 Inactive cyclobenzaprine 5 mg tablet RxNorm: 666583 TAKE ONE TABLET BY MOUTH THREE TIMES DAILY NEEDED FOR MUSCLE SPASM 11/12/2018 12/15/2018 Inactive hydrocodone 5 mg-acetaminophen 325 mg tablet RxNorm: 501649 1-1.5 Tablet(s) PO QID as needed 11/06/2018 12/05/2018 Inactive Lyrica 100 mg capsule RxNorm: 826504 1 Capsule(s) PO BID as needed 10/31/2018 01/28/2019 Inactive pravastatin 20 mg tablet RxNorm: 622896 1 Tablet(s) PO QPM 10/28/2018 02/24/2019 Inactive pravastatin 20 mg tablet RxNorm: 587339 1 Tablet(s) PO QPM 10/28/2018 10/27/2018 Inactive EEMT 1.25 mg-2.5 mg tablet RxNorm: 515260 1 Tablet(s) PO daily 10/09/2018 01/06/2019 Inactive norethindrone acetate 1 mg-ethinyl estradiol 20 mcg tablet RxNorm: 3687877 1 Tablet(s) PO daily 10/09/2018 10/03/2019 Active hydrocodone 5 mg-acetaminophen 325 mg tablet RxNorm: 512369 1-1.5 Tablet(s) PO QID as needed 10/09/2018 11/05/2018 Inactive hydrocodone 5 mg-acetaminophen 325 mg tablet RxNorm: 019808 1-1.5 Tablet(s) PO QID as needed 09/11/2018 10/08/2018 Inactive phentermine 37.5 mg tablet RxNorm: 232602 1 Tablet(s) PO daily 08/29/2018 11/26/2018 Inactive cyclobenzaprine 5 mg tablet RxNorm: 233655 TAKE ONE TABLET BY MOUTH THREE TIMES DAILY NEEDED FOR MUSCLE SPASM 08/27/2018 11/11/2018 Inactive hydrocodone 5 mg-acetaminophen 325 mg tablet RxNorm: 678992 1-1.5 Tablet(s) PO QID as needed 08/14/2018 09/10/2018 Inactive Lexapro 10 mg tablet RxNorm: 123923 1 Tablet(s) PO daily 07/18/2018 08/16/2018 Inactive diazepam 10 mg tablet RxNorm: 199106 1 Tablet(s) PO TID as needed anxiety 07/11/2018 07/14/2018 Inactive Zorvolex 35 mg capsule RxNorm: 2036292 1 Capsule(s) PO TID 06/18/2018 No Stop Date Active hydrocodone 5 mg-acetaminophen 325 mg tablet RxNorm: 015085 1-1.5 Tablet(s) PO QID as needed 06/18/2018 07/17/2018 Inactive cyclobenzaprine 5 mg tablet RxNorm: 950422 TAKE ONE TABLET BY MOUTH THREE TIMES DAILY NEEDED FOR MUSCLE SPASM 06/04/2018 08/26/2018 Inactive hydrocodone 5 mg-acetaminophen 325 mg tablet RxNorm: 816130 1-1.5 Tablet(s) PO QID as needed 05/26/2018 06/17/2018 Inactive cyclobenzaprine 5 mg tablet RxNorm: 791800 TAKE ONE TABLET BY MOUTH THREE TIMES DAILY NEEDED FOR MUSCLE SPASM 05/07/2018 06/03/2018 Inactive ibuprofen 800 mg tablet RxNorm: 769500 TAKE ONE TABLET BY MOUTH THREE TIMES DAILY NEEDED 04/28/2018 No Stop Date Active hydrocodone 5 mg-acetaminophen 325 mg tablet RxNorm: 390251 1-1.5 Tablet(s) PO QID as needed 04/28/2018 05/25/2018 Inactive diazepam 10 mg tablet RxNorm: 492515 1 Tablet(s) PO TID as needed anxiety 04/22/2018 06/19/2018 Inactive hydrocodone 5 mg-acetaminophen 325 mg tablet RxNorm: 364555 1-1.5 Tablet(s) PO QID as needed 03/25/2018 04/23/2018 Inactive cyclobenzaprine 5 mg tablet RxNorm: 722884 TAKE ONE TABLET BY MOUTH THREE TIMES DAILY NEEDED FOR MUSCLE SPASM 03/17/2018 05/06/2018 Inactive hydrocodone 5 mg-acetaminophen 325 mg tablet RxNorm: 699656 1-1.5 Tablet(s) PO QID as needed 03/02/2018 03/24/2018 Inactive phentermine 37.5 mg tablet RxNorm: 190603 1 Tablet(s) PO daily 03/02/2018 08/28/2018 Inactive hydrocodone 5 mg-acetaminophen 325 mg tablet RxNorm: 013930 1-1.5 Tablet(s) PO QID as needed 02/03/2018 03/01/2018 Inactive diazepam 10 mg tablet RxNorm: 401187 1 Tablet(s) PO TID as needed anxiety 01/01/2018 02/28/2018 Inactive hydrocodone 5 mg-acetaminophen 325 mg tablet RxNorm: 335162 1-1.5 Tablet(s) PO QID as needed 12/09/2017 01/07/2018 Inactive ibuprofen 800 mg tablet RxNorm: 214316 1 Tablet(s) PO TID as needed 12/09/2017 01/07/2018 Inactive Lyrica 100 mg capsule RxNorm: 581325 1 Capsule(s) PO BID as needed 12/09/2017 03/07/2018 Inactive cyclobenzaprine 5 mg tablet RxNorm: 408980 TAKE ONE TABLET BY MOUTH THREE TIMES DAILY NEEDED FOR MUSCLE SPASM 12/03/2017 03/16/2018 Inactive hydrocodone 5 mg-acetaminophen 325 mg tablet RxNorm: 567183 1-1.5 Tablet(s) PO QID as needed 10/21/2017 11/19/2017 Inactive hydrocodone 7.5 mg-acetaminophen 325 mg tablet RxNorm: 777970 1 Tablet(s) PO QID as needed 09/26/2017 10/20/2017 Inactive phentermine 37.5 mg tablet RxNorm: 874825 1 Tablet(s) PO daily 09/26/2017 10/01/2017 Inactive Lyrica 100 mg capsule RxNorm: 421520 1 Capsule(s) PO BID as needed 09/12/2017 12/08/2017 Inactive hydrocodone 7.5 mg-acetaminophen 325 mg tablet RxNorm: 090059 1 Tablet(s) PO QID as needed 08/27/2017 09/23/2017 Inactive Belviq XR 20 mg tablet,extended release RxNorm: 9732719 1 Tablet(s) PO daily 08/27/2017 09/23/2017 Inactive cyclobenzaprine 5 mg tablet RxNorm: 484986 1 Tablet(s) PO TID as needed muscle spasms 08/19/2017 08/23/2017 Inactive hydrocodone 7.5 mg-acetaminophen 325 mg tablet RxNorm: 841492 1 Tablet(s) PO QID as needed 08/02/2017 08/26/2017 Inactive hydrocodone 7.5 mg-acetaminophen 325 mg tablet RxNorm: 133678 1 Tablet(s) PO TID as needed 08/02/2017 08/01/2017 Inactive diazepam 10 mg tablet RxNorm: 496500 1 Tablet(s) PO TID as needed anxiety 07/24/2017 02/02/2018 Inactive hydrocodone 7.5 mg-acetaminophen 325 mg tablet RxNorm: 914463 1 Tablet(s) PO TID as needed 07/11/2017 08/01/2017 Inactive Lyrica 100 mg capsule RxNorm: 578827 1 Capsule(s) PO BID as needed 06/24/2017 09/20/2017 Inactive hydrocodone 5 mg-acetaminophen 325 mg tablet RxNorm: 878989 1 Tablet(s) PO TID 06/24/2017 07/30/2017 Inactive prednisone 10 mg tablet RxNorm: 340411 1 Tablet(s) PO daily 06/18/2017 06/17/2017 Inactive 6-5-4-3-2-1 then stop prednisone 10 mg tablet RxNorm: 503938 1 Tablet(s) PO daily 06/18/2017 08/25/2017 Inactive 6-5-4-3-2-1 then stop Bactrim DS 800 mg-160 mg tablet RxNorm: 907101 1 Tablet(s) PO BID 06/11/2017 06/14/2017 Inactive Bactrim DS 800 mg-160 mg tablet RxNorm: 876780 1 Tablet(s) PO BID 06/03/2017 06/10/2017 Inactive mupirocin 2 % topical ointment RxNorm: 303607 1 Application TOP BID 06/03/2017 08/25/2017 Inactive Lyrica 100 mg capsule RxNorm: 461483 1 Capsule(s) PO BID as needed 05/27/2017 06/23/2017 Inactive Keflex 500 mg capsule RxNorm: 724393 1 Capsule(s) PO TID 05/27/2017 06/02/2017 Inactive Lexapro 10 mg tablet RxNorm: 558294 1 Tablet(s) PO daily 05/27/2017 08/25/2017 Inactive hydrocodone 5 mg-acetaminophen 325 mg tablet RxNorm: 379488 1 Tablet(s) PO TID 05/27/2017 06/23/2017 Inactive hydrocodone 7.5 mg-acetaminophen 325 mg tablet RxNorm: 675342 1 Tablet(s) PO TID as needed 05/13/2017 05/25/2017 Inactive hydrocodone 7.5 mg-acetaminophen 325 mg tablet RxNorm: 334807 1 Tablet(s) PO TID as needed 05/13/2017 05/12/2017 Inactive cyclobenzaprine 5 mg tablet RxNorm: 094392 TAKE ONE TABLET BY MOUTH THREE TIMES DAILY NEEDED FOR MUSCLE SPASM 05/01/2017 05/05/2017 Inactive hydrocodone 5 mg-acetaminophen 325 mg tablet RxNorm: 158164 1 Tablet(s) PO TID as needed 04/24/2017 05/12/2017 Inactive cyclobenzaprine 5 mg tablet RxNorm: 655869 1 Tablet(s) PO TID as needed muscle spasms 04/24/2017 04/28/2017 Inactive diazepam 10 mg tablet RxNorm: 752745 1 Tablet(s) PO TID as needed anxiety 02/22/2017 04/19/2017 Inactive norethindrone acetate 1 mg-ethinyl estradiol 20 mcg tablet RxNorm: 8571925 1 Tablet(s) PO daily 12/18/2016 07/15/2017 Inactive EEMT 1.25 mg-2.5 mg tablet RxNorm: 903693 1 Tablet(s) PO daily 12/06/2016 03/05/2017 Inactive EEMT 1.25 mg-2.5 mg tablet RxNorm: 429510 1 Tablet(s) PO daily 12/06/2016 12/05/2016 Inactive Lexapro 10 mg tablet RxNorm: 016739 1 Tablet(s) PO daily 12/06/2016 05/04/2017 Inactive diazepam 10 mg tablet RxNorm: 062488 1 Tablet(s) PO TID 11/09/2016 12/07/2016 Inactive phentermine 37.5 mg tablet RxNorm: 218643 1 Tablet(s) PO daily 10/25/2016 08/23/2017 Inactive EEMT 1.25 mg-2.5 mg tablet RxNorm: 121842 1 Tablet(s) PO daily 10/25/2016 12/05/2016 Inactive phentermine 37.5 mg tablet RxNorm: 530719 1 Tablet(s) PO daily 09/20/2016 10/24/2016 Inactive Lexapro 10 mg tablet RxNorm: 349671 1 Tablet(s) PO daily 07/10/2016 12/05/2016 Inactive Lexapro 10 mg tablet RxNorm: 697780 1 Tablet(s) PO daily 06/12/2016 07/09/2016 Inactive norethindrone acetate 1 mg-ethinyl estradiol 20 mcg tablet RxNorm: 1077365 1 Tablet(s) PO daily 06/12/2016 12/17/2016 Inactive hydrocodone 10 mg-acetaminophen 325 mg tablet RxNorm: 791370 1 Tablet(s) PO TID No Start Date 05/12/2017 Inactive phentermine 37.5 mg tablet RxNorm: 329080 1 Tablet(s) PO daily No Start Date 09/19/2016 Inactive norethindrone acetate 1 mg-ethinyl estradiol 20 mcg tablet RxNorm: 9357448 1 Tablet(s) PO daily No Start Date 06/11/2016 Inactive EEMT 1.25 mg-2.5 mg tablet RxNorm: 229387 1 Tablet(s) PO daily No Start Date [...] nourished 12/08/2018 None Full Exam - General 1995 Eyes conjunctiva/eyelids Overall: conjunctiva clear 12/08/2018 None Full Exam - General 1995 Eyes conjunctiva/eyelids Overall: cornea clear 12/08/2018 None Full Exam - General 1995 Eyes conjunctiva/eyelids Overall: eyelids normal 12/08/2018 None Full Exam - General 1995 Ears/Nose/Throat lips/teeth/gingiva Overall: benign lips 12/08/2018 None Full Exam - General 1995 [...] 1: 142/72 Code: 8480-6 BMI: 30.9 Code: 48109-5 Heart Rate 1: 82 bpm Height: 5'2" SpO2: 98% Weight: 169 lbs 12/08/2018 Blood Pressure 1: 130/74 Code: 8480-6 BMI: 30.7 Code: 46809-7 Heart Rate 1: 82 bpm Height: 5'2" SpO2: 97% Weight: 168 lbs 11/27/2018 Blood Pressure 1: 130/74 Code: 8480-6 Weight: 168 lbs 10/09/2018 Blood Pressure 1: 128/74 Code: 8480-6 BMI: 31.1 Code: 20706-2 Heart Rate 1: 81 bpm Height: 5'2" SpO2: 97% Weight: 170 lbs 08/29/2018 Blood Pressure 1: 120/70 Code: 8480-6 BMI: 31.1 Code: 14926-2 Heart Rate 1: 65 bpm Height: 5'2" Weight: 170 lbs 07/18/2018 Blood Pressure 1: 126/88 Code: 8480-6 Heart Rate 1: 78 bpm Height: SpO2: 97% Weight: 07/16/2018 Blood Pressure 1: 130/78 Code: 8480-6 Heart Rate 1: 84 bpm Weight: 172 lbs 06/18/2018 Blood Pressure 1: 128/80 Code: 8480-6 BMI: 31.1 Code: 10343-6 Heart Rate 1: 80 bpm Height: 5'2" SpO2: 97% Weight: 170 lbs 02/28/2018 Blood Pressure 1: 120/78 Code: 8480-6 BMI: 31.6 Code: 46562-4 Heart Rate 1: 66 bpm Height: 5'2" SpO2: 98% Weight: 173 lbs 12/09/2017 Blood Pressure 1: 116/74 Code: 8480-6 BMI: 31.5 Code: 19707-3 Heart Rate 1: 74 bpm Height: 5'2" SpO2: 95% Weight: 172 lbs 10/21/2017 Blood Pressure 1: 136/82 Code: 8480-6 BMI: 30.4 Code: 61741-3 Heart Rate 1: 79 bpm Height: 5'2" SpO2: 97% Weight: 166 lbs 09/26/2017 Blood Pressure 1: 122/80 Code: 8480-6 BMI: 30.4 Code: 62825-4 Heart Rate 1: 63 bpm Height: 5'2" SpO2: 98% Weight: 166 lbs 08/27/2017 Blood Pressure 1: 132/70 Code: 8480-6 BMI: 30.7 Code: 58505-7 Heart Rate 1: 89 bpm Height: 5'2" SpO2: 98% Weight: 168 lbs 05/27/2017 Blood Pressure 1: 132/72 Code: 8480-6 BMI: 28.9 Code: 05515-1 Heart Rate 1: 72 bpm Height: 5'2" SpO2: 98% Weight: 158 lbs 04/24/2017 Blood Pressure 1: 140/76 Code: 8480-6 BMI: 29.3 Code: 99173-6 Heart Rate 1: 77 bpm Height: 5'2" SpO2: 97% Weight: 160 lbs 03/27/2017 Blood Pressure 1: 128/74 Code: 8480-6 BMI: 29.1 Code: 80165-3 Heart Rate 1: 74 bpm Height: 5'2" SpO2: 98% Temperature: 36.8 (C) / 98.3 (F) Weight: 159 lbs 10/25/2016 Blood Pressure 1: 116/74 Code: 8480-6 BMI: 28.9 Code: 92875-8 Heart Rate 1: 68 bpm Height: 5'2" SpO2: 99% Weight: 158 lbs 09/20/2016 Blood Pressure 1: 116/70 Code: 8480-6 Heart Rate 1: 72 bpm Weight: 150 lbs 08/24/2016 Blood Pressure 1: 118/62 Code: 8480-6 BMI: 27.6 Code: 34414-4 Heart Rate 1: 63 bpm Height: 5'2" SpO2: 99% Weight: 151 lbs 06/12/2016 Blood Pressure 1: 122/74 Code: 8480-6 BMI: 26.9 Code: 77754-0 Heart Rate 1: 52 bpm Height: 5'2" [...] data Encounters Encounter Performer Location Codes Date 73235 EST. PATIENT, LEVEL III Diagnosis: Recurrent oral aphthae[ICD10: K12.0] [facility] CPT- 4: 84115 02/23/2019 09659 EST. PATIENT, LEVEL III Diagnosis: Chronic pain syndrome[ICD10: G89.4] [facility] CPT- 4: 65420 12/08/2018 ([id number]) Miscellaneous no charge Diagnosis: Overweight[ICD10: E66.3] Juju Jama MD, [facility] CPT-4: 13631 11/27/2018 23911 EST. PATIENT, LEVEL III Diagnosis: Chronic pain syndrome[ICD10: G89.4] Diagnosis: Menopausal and female climacteric states[ICD10: N95.1] Veda Jama MD, [facility] CPT-4: 80933 10/09/2018 ([id number]) Miscellaneous no charge Diagnosis: Overweight[ICD10: E66.3] Juju Jama MD, [facility] CPT-4: 25474 08/29/2018 80723 EST. PATIENT, LEVEL III Diagnosis: Generalized anxiety disorder[ICD10: F41.1] Diagnosis: Major depressive disorder, single episode, moderate[ICD10: F32.1] Veda Jama MD, [facility] CPT-4: 11409 07/18/2018 ([id number]) Miscellaneous no charge Diagnosis: Overweight[ICD10: E66.3] Juju Jama MD, [facility] CPT-4: 90885 07/16/2018 73497 EST. PATIENT, LEVEL III Diagnosis: Chronic pain syndrome[ICD10: G89.4] Diagnosis: Overweight[ICD10: E66.3] Veda Jama MD, [facility] CPT-4: 66461 06/18/2018 03749 EST. PATIENT, LEVEL IV Diagnosis: Chronic pain syndrome[ICD10: G89.4] Diagnosis: Overweight[ICD10: E66.3] Veda Jama MD, [facility] CPT-4: 91580 02/28/2018 04794 EST. PATIENT, LEVEL III Diagnosis: Chronic pain syndrome[ICD10: G89.4] Diagnosis: Overweight[ICD10: E66.3] Veda Jama MD, [facility] CPT-4: 08053 12/09/2017 02479 EST. PATIENT, LEVEL III Diagnosis: Chronic pain syndrome[ICD10: G89.4] Diagnosis: Overweight[ICD10: E66.3] Veda Jama MD, [facility] CPT-4: 77764 10/21/2017 ([id number]) Miscellaneous no charge Diagnosis: Overweight[ICD10: E66.3] Juju Jama MD, [facility] CPT-4: 97427 09/26/2017 96837 EST. PATIENT, LEVEL III Diagnosis: Chronic pain syndrome[ICD10: G89.4] Diagnosis: Overweight[ICD10: E66.3] Veda Jama MD, [facility] CPT-4: 60479 08/27/2017 76432 EST. PATIENT, LEVEL III Diagnosis: Chronic pain syndrome[ICD10: G89.4] Diagnosis: Generalized anxiety disorder[ICD10: F41.1] Diagnosis: Major depressive disorder, single episode, moderate[ICD10: F32.1] Diagnosis: Cellulitis of right lower limb[ICD10: L03.115] Veda Jama MD, [facility] CPT-4: 72317 05/27/2017 ([id number]) 30261 EST. PATIENT, LEVEL IV Diagnosis: Generalized anxiety disorder[ICD10: F41.1] Diagnosis: Major depressive disorder, single episode, moderate[ICD10: F32.1] Diagnosis: Menopausal and female climacteric states[ICD10: N95.1] Diagnosis: Chronic pain syndrome[ICD10: G89.4] Veda Jama MD, [facility] CPT- 4: 33408 04/24/2017 ([id number]) PREV VISIT EST AGE 18-39 Diagnosis: Encounter for gynecological examination (general) (routine) without abnormal findings[ICD10: Z01.419] Veda Jama MD, [facility] CPT-4: 79576 03/27/2017 ([id number]) 96495 EST. PATIENT, LEVEL III Diagnosis: Overweight[ICD10: E66.3] Veda Jama MD, [facility] CPT-4: 99254 10/25/2016 ([id number]) Miscellaneous no charge Diagnosis: Overweight[ICD10: E66.3] [facility] CPT-4: 97980 09/20/2016 87557 EST. PATIENT, LEVEL IV Diagnosis: Other fatigue[ICD10: R53.83] Diagnosis: Overweight[ICD10: E66.3] Diagnosis: Generalized anxiety disorder[ICD10: F41.1] Veda Jama MD, [facility] CPT-4: 13433 08/24/2016 ([id number]) OFFICE VISIT, NEW - LEVEL 4 Diagnosis: Generalized anxiety disorder[ICD10: F41.1] Diagnosis: Major depressive disorder, single episode, moderate[ICD10: F32.1] [facility] CPT-4: 00331 06/12/2016 Plan of Care Planned Activity Notes Codes Status Date Visit Plan: Princess haas - ongoing - will send RX - pt is to notify clinic if symptoms do not improve, if they worsen, or with any changes, questions, or concerns. Will refer to Dr. Bassett if symptoms persist. 02/23/2019 Appointment: Veda Duenas WPtel: [phone] [facility] (30 min) Complex 02/23/2019 Patient Education: Patient Medication Summary Completed 02/23/2019 Visit Plan: Chronic Pain Syndrome - pt has chronic pain - has been maintained on current medications, has not sought out other medications, only uses PRN pain medications as directed, and understands the consequences of over-medication. 12/08/2018 Appointment: Veda Duenas WPtel: [phone] [facility] (30 min) Complex 12/08/2018 Patient Education: [...] or concerns. 10/09/2018 [phone] ([facility]) Moderate 10/09/2018 Patient Education: Patient [...] this patient. 07/18/2018 Appointment: Veda Duenas WPtel: [facility]4 [facility] (15 min) Moderate 07/18/2018 Patient Education: [...] weight check. 06/18/2018 Appointment: Veda Duenas WPtel: [facility]1 [facility] (15 min) Moderate 06/18/2018 Patient Education: Patient [...] weight check. 02/28/2018 Appointment: Veda Duenas WPtel: [facility]6 [facility] (30 min) Complex 02/28/2018 Patient Education: Patient Medication Summary Completed 02/28/2018 Patient Education: Obesity Completed 02/28/2018 Appointment: Veda Duenas WPtel: [facility]8 [facility] (15 min) Moderate 02/27/2018 Visit Plan: Chronic [...] weight check. 12/09/2017 Appointment: Veda Duenas WPtel: [facility]5 [facility] (15 min) Moderate 12/09/2017 Patient Education: Patient [...] month for weight check. 10/21/2017 Appointment: Veda Duenastel: [address] [place], [place] [phone] (15 min) Moderate 10/21/2017 Patient Education: Patient Medication Summary Completed 10/21/2017 Patient Education: Obesity Completed 10/21/2017 Appointment: Nurse Visit 09/26/2017 Patient Education: Patient Medication Summary Completed 09/26/2017 Appointment: Veda Duenastel: [address] [place], [place] [phone] (30 min) Complex 08/30/2017 Visit Plan: Chronic [...] warmth, discharge. 05/27/2017 Appointment: Veda Duenas WPtel: [address] [place], [place] [address] (30 min) [facility] 05/27/2017 Patient Education: Patient Medication Summary Completed [...] RX. 04/24/2017 App[phone] ([facility] min) Complex 04/24/2017 Patient Education: Patient [...] per pharmacy. 03/27/2017 Appointment: Veda Duenas WPtel: [facility] [facility] 03/27/2017 Patient Education: Patient Medication Summary Completed 03/27/2017 Care Plan: BMI Above normal followup SELF-MGMT EDUC & TRAIN 1 PT Pending 11/07/2016 Visit Plan: Obesity - chronic issue with this patient. The pt has been counseled about diet changes, calorie restriction, and need to exercise. Pt will RTC in one month for weight check. 10/25/2016 Appointment: [phone] [facility] (15 min) Moderate 10/25/2016 Patient Education: Patient [...] weight check. 08/24/2016 Appointment: Radha Mcgowan WPtel: [facility]8 [phone] (30 min) Complex 08/24/2016 Appointment: Radha Mcgowan WPtel: [phone] [facility] [place] [address] (30 min) Complex 08/24/2016 Appointment: Radha Mcgowan WPtel: [phone] [phone] (30 min) Complex 08/24/2016 Patient Education: Patient [...] prescribed for this patient. 06/12/2016 Appointment: Radha Mcgowan WPtel: [facility]1 [phone] New Patient 06/12/2016 Patient Education: Patient [...]
--- OUTSIDE RECORDS SUMMARY | 2019-07-01 06:09 | XMS REPORT | CCD ---
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 Name Role Phone PP Unavailable CCM Unavailable Summary Purpose Interface Exchange Insurance Providers Payer name Policy type / Coverage type Covered republican ID Effective Begin Date Effective End Date [employer] [id number] 2018 Unknown Family history Father Diagnosis Age At Onset Diabetes Unknown Hyperlipidemia Unknown Hypertension Unknown Heart Attack Unknown Social History Social History Element Codes Description Effective Dates Marital status Unknown CJ 06/12/2016 Number of children Unknown 3 06/12/[address]: 682522009 Never smoker 06/12/[address]: 252576037 Never drinks alcohol 06/12/2016 Allergies, Adverse Reactions, [...] hydrocodone 5 mg-acetaminophen 325 mg tablet RxNorm: 778037 1-1.5 Tablet(s) PO QID as needed 05/20/2019 06/18/2019 Active cyclobenzaprine 5 mg tablet RxNorm: 496208 TAKE 1 TABLET BY MOUTH THREE TIMES DAILY NEEDED FOR MUSCLE SPASM 05/18/2019 No Stop Date Active cyclobenzaprine 5 mg tablet RxNorm: 588928 TAKE 1 TABLET BY MOUTH THREE TIMES DAILY NEEDED FOR MUSCLE SPASM 04/24/2019 05/17/2019 Inactive hydrocodone 5 mg-acetaminophen 325 mg tablet RxNorm: 882124 1-1.5 Tablet(s) PO QID as needed 04/21/2019 05/18/2019 Inactive Lexapro 10 mg tablet RxNorm: 504908 TAKE 1 TABLET BY MOUTH ONCE DAILY 03/30/2019 No Stop Date Active hydrocodone 5 mg-acetaminophen 325 mg tablet RxNorm: 958250 1-1.5 Tablet(s) PO QID as needed 03/23/2019 04/20/2019 Inactive prednisolone 15 mg/5 mL oral solution RxNorm: 211777 5 Milliliter(s) PO BID 02/23/2019 02/27/2019 Inactive valacyclovir 1 gram tablet RxNorm: 913909 1 Tablet(s) PO TID 02/23/2019 03/01/2019 Inactive hydrocodone 5 mg-acetaminophen 325 mg tablet RxNorm: 795081 1-1.5 Tablet(s) PO QID as needed 02/23/2019 03/22/2019 Inactive hydrocodone 5 mg-acetaminophen 325 mg tablet RxNorm: 429002 1-1.5 Tablet(s) PO QID as needed 01/28/2019 02/26/2019 Inactive hydrocodone 5 mg-acetaminophen 325 mg tablet RxNorm: 156282 1-1.5 Tablet(s) PO QID as needed 01/01/2019 01/27/2019 Inactive cyclobenzaprine 5 mg tablet RxNorm: 714635 TAKE ONE TABLET BY MOUTH THREE TIMES DAILY NEEDED FOR MUSCLE SPASM 12/16/2018 04/23/2019 Inactive phentermine 37.5 mg tablet RxNorm: 204277 1 Tablet(s) PO daily 11/27/2018 No Stop Date Active Lexapro 10 mg tablet RxNorm: 449014 TAKE 1 TABLET BY MOUTH ONCE DAILY 11/26/2018 03/29/2019 Inactive cyclobenzaprine 5 mg tablet RxNorm: 911793 TAKE ONE TABLET BY MOUTH THREE TIMES DAILY NEEDED FOR MUSCLE SPASM 11/12/2018 12/15/2018 Inactive hydrocodone 5 mg-acetaminophen 325 mg tablet RxNorm: 119221 1-1.5 Tablet(s) PO QID as needed 11/06/2018 12/05/2018 Inactive Lyrica 100 mg capsule RxNorm: 085775 1 Capsule(s) PO BID as needed 10/31/2018 01/28/2019 Inactive pravastatin 20 mg tablet RxNorm: 372468 1 Tablet(s) PO QPM 10/28/2018 02/24/2019 Inactive pravastatin 20 mg tablet RxNorm: 018283 1 Tablet(s) PO QPM 10/28/2018 10/27/2018 Inactive EEMT 1.25 mg-2.5 mg tablet RxNorm: 638045 1 Tablet(s) PO daily 10/09/2018 01/06/2019 Inactive norethindrone acetate 1 mg-ethinyl estradiol 20 mcg tablet RxNorm: 1239082 1 Tablet(s) PO daily 10/09/2018 10/03/2019 Active hydrocodone 5 mg-acetaminophen 325 mg tablet RxNorm: 869064 1-1.5 Tablet(s) PO QID as needed 10/09/2018 11/05/2018 Inactive hydrocodone 5 mg-acetaminophen 325 mg tablet RxNorm: 276013 1-1.5 Tablet(s) PO QID as needed 09/11/2018 10/08/2018 Inactive phentermine 37.5 mg tablet RxNorm: 435470 1 Tablet(s) PO daily 08/29/2018 11/26/2018 Inactive cyclobenzaprine 5 mg tablet RxNorm: 862508 TAKE ONE TABLET BY MOUTH THREE TIMES DAILY NEEDED FOR MUSCLE SPASM 08/27/2018 11/11/2018 Inactive hydrocodone 5 mg-acetaminophen 325 mg tablet RxNorm: 218521 1-1.5 Tablet(s) PO QID as needed 08/14/2018 09/10/2018 Inactive Lexapro 10 mg tablet RxNorm: 443649 1 Tablet(s) PO daily 07/18/2018 08/16/2018 Inactive diazepam 10 mg tablet RxNorm: 286192 1 Tablet(s) PO TID as needed anxiety 07/11/2018 07/14/2018 Inactive Zorvolex 35 mg capsule RxNorm: 6313602 1 Capsule(s) PO TID 06/18/2018 No Stop Date Active hydrocodone 5 mg-acetaminophen 325 mg tablet RxNorm: 617165 1-1.5 Tablet(s) PO QID as needed 06/18/2018 07/17/2018 Inactive cyclobenzaprine 5 mg tablet RxNorm: 211037 TAKE ONE TABLET BY MOUTH THREE TIMES DAILY NEEDED FOR MUSCLE SPASM 06/04/2018 08/26/2018 Inactive hydrocodone 5 mg-acetaminophen 325 mg tablet RxNorm: 224682 1-1.5 Tablet(s) PO QID as needed 05/26/2018 06/17/2018 Inactive cyclobenzaprine 5 mg tablet RxNorm: 083861 TAKE ONE TABLET BY MOUTH THREE TIMES DAILY NEEDED FOR MUSCLE SPASM 05/07/2018 06/03/2018 Inactive ibuprofen 800 mg tablet RxNorm: 135530 TAKE ONE TABLET BY MOUTH THREE TIMES DAILY NEEDED 04/28/2018 No Stop Date Active hydrocodone 5 mg-acetaminophen 325 mg tablet RxNorm: 959029 1-1.5 Tablet(s) PO QID as needed 04/28/2018 05/25/2018 Inactive diazepam 10 mg tablet RxNorm: 212294 1 Tablet(s) PO TID as needed anxiety 04/22/2018 06/19/2018 Inactive hydrocodone 5 mg-acetaminophen 325 mg tablet RxNorm: 293847 1-1.5 Tablet(s) PO QID as needed 03/25/2018 04/23/2018 Inactive cyclobenzaprine 5 mg tablet RxNorm: 492509 TAKE ONE TABLET BY MOUTH THREE TIMES DAILY NEEDED FOR MUSCLE SPASM 03/17/2018 05/06/2018 Inactive hydrocodone 5 mg-acetaminophen 325 mg tablet RxNorm: 325673 1-1.5 Tablet(s) PO QID as needed 03/02/2018 03/24/2018 Inactive phentermine 37.5 mg tablet RxNorm: 711159 1 Tablet(s) PO daily 03/02/2018 08/28/2018 Inactive hydrocodone 5 mg-acetaminophen 325 mg tablet RxNorm: 404263 1-1.5 Tablet(s) PO QID as needed 02/03/2018 03/01/2018 Inactive diazepam 10 mg tablet RxNorm: 182262 1 Tablet(s) PO TID as needed anxiety 01/01/2018 02/28/2018 Inactive hydrocodone 5 mg-acetaminophen 325 mg tablet RxNorm: 095103 1-1.5 Tablet(s) PO QID as needed 12/09/2017 01/07/2018 Inactive ibuprofen 800 mg tablet RxNorm: 501154 1 Tablet(s) PO TID as needed 12/09/2017 01/07/2018 Inactive Lyrica 100 mg capsule RxNorm: 953225 1 Capsule(s) PO BID as needed 12/09/2017 03/07/2018 Inactive cyclobenzaprine 5 mg tablet RxNorm: 505050 TAKE ONE TABLET BY MOUTH THREE TIMES DAILY NEEDED FOR MUSCLE SPASM 12/03/2017 03/16/2018 Inactive hydrocodone 5 mg-acetaminophen 325 mg tablet RxNorm: 195830 1-1.5 Tablet(s) PO QID as needed 10/21/2017 11/19/2017 Inactive hydrocodone 7.5 mg-acetaminophen 325 mg tablet RxNorm: 487560 1 Tablet(s) PO QID as needed 09/26/2017 10/20/2017 Inactive phentermine 37.5 mg tablet RxNorm: 689253 1 Tablet(s) PO daily 09/26/2017 10/01/2017 Inactive Lyrica 100 mg capsule RxNorm: 922565 1 Capsule(s) PO BID as needed 09/12/2017 12/08/2017 Inactive hydrocodone 7.5 mg-acetaminophen 325 mg tablet RxNorm: 930811 1 Tablet(s) PO QID as needed 08/27/2017 09/23/2017 Inactive Belviq XR 20 mg tablet,extended release RxNorm: 9653979 1 Tablet(s) PO daily 08/27/2017 09/23/2017 Inactive cyclobenzaprine 5 mg tablet RxNorm: 181587 1 Tablet(s) PO TID as needed muscle spasms 08/19/2017 08/23/2017 Inactive hydrocodone 7.5 mg-acetaminophen 325 mg tablet RxNorm: 259526 1 Tablet(s) PO QID as needed 08/02/2017 08/26/2017 Inactive hydrocodone 7.5 mg-acetaminophen 325 mg tablet RxNorm: 341637 1 Tablet(s) PO TID as needed 08/02/2017 08/01/2017 Inactive diazepam 10 mg tablet RxNorm: 063075 1 Tablet(s) PO TID as needed anxiety 07/24/2017 02/02/2018 Inactive hydrocodone 7.5 mg-acetaminophen 325 mg tablet RxNorm: 756188 1 Tablet(s) PO TID as needed 07/11/2017 08/01/2017 Inactive Lyrica 100 mg capsule RxNorm: 088491 1 Capsule(s) PO BID as needed 06/24/2017 09/20/2017 Inactive hydrocodone 5 mg-acetaminophen 325 mg tablet RxNorm: 084406 1 Tablet(s) PO TID 06/24/2017 07/30/2017 Inactive prednisone 10 mg tablet RxNorm: 527066 1 Tablet(s) PO daily 06/18/2017 06/17/2017 Inactive 6-5-4-3-2-1 then stop prednisone 10 mg tablet RxNorm: 593013 1 Tablet(s) PO daily 06/18/2017 08/25/2017 Inactive 6-5-4-3-2-1 then stop Bactrim DS 800 mg-160 mg tablet RxNorm: 661475 1 Tablet(s) PO BID 06/11/2017 06/14/2017 Inactive Bactrim DS 800 mg-160 mg tablet RxNorm: 540742 1 Tablet(s) PO BID 06/03/2017 06/10/2017 Inactive mupirocin 2 % topical ointment RxNorm: 478089 1 Application TOP BID 06/03/2017 08/25/2017 Inactive Lyrica 100 mg capsule RxNorm: 317558 1 Capsule(s) PO BID as needed 05/27/2017 06/23/2017 Inactive Keflex 500 mg capsule RxNorm: 105277 1 Capsule(s) PO TID 05/27/2017 06/02/2017 Inactive Lexapro 10 mg tablet RxNorm: 686522 1 Tablet(s) PO daily 05/27/2017 08/25/2017 Inactive hydrocodone 5 mg-acetaminophen 325 mg tablet RxNorm: 365603 1 Tablet(s) PO TID 05/27/2017 06/23/2017 Inactive hydrocodone 7.5 mg-acetaminophen 325 mg tablet RxNorm: 884189 1 Tablet(s) PO TID as needed 05/13/2017 05/25/2017 Inactive hydrocodone 7.5 mg-acetaminophen 325 mg tablet RxNorm: 198493 1 Tablet(s) PO TID as needed 05/13/2017 05/12/2017 Inactive cyclobenzaprine 5 mg tablet RxNorm: 179119 TAKE ONE TABLET BY MOUTH THREE TIMES DAILY NEEDED FOR MUSCLE SPASM 05/01/2017 05/05/2017 Inactive hydrocodone 5 mg-acetaminophen 325 mg tablet RxNorm: 013678 1 Tablet(s) PO TID as needed 04/24/2017 05/12/2017 Inactive cyclobenzaprine 5 mg tablet RxNorm: 366964 1 Tablet(s) PO TID as needed muscle spasms 04/24/2017 04/28/2017 Inactive diazepam 10 mg tablet RxNorm: 684986 1 Tablet(s) PO TID as needed anxiety 02/22/2017 04/19/2017 Inactive norethindrone acetate 1 mg-ethinyl estradiol 20 mcg tablet RxNorm: 3642746 1 Tablet(s) PO daily 12/18/2016 07/15/2017 Inactive EEMT 1.25 mg-2.5 mg tablet RxNorm: 406381 1 Tablet(s) PO daily 12/06/2016 03/05/2017 Inactive EEMT 1.25 mg-2.5 mg tablet RxNorm: 713849 1 Tablet(s) PO daily 12/06/2016 12/05/2016 Inactive Lexapro 10 mg tablet RxNorm: 703849 1 Tablet(s) PO daily 12/06/2016 05/04/2017 Inactive diazepam 10 mg tablet RxNorm: 762703 1 Tablet(s) PO TID 11/09/2016 12/07/2016 Inactive phentermine 37.5 mg tablet RxNorm: 455213 1 Tablet(s) PO daily 10/25/2016 08/23/2017 Inactive EEMT 1.25 mg-2.5 mg tablet RxNorm: 161739 1 Tablet(s) PO daily 10/25/2016 12/05/2016 Inactive phentermine 37.5 mg tablet RxNorm: 463517 1 Tablet(s) PO daily 09/20/2016 10/24/2016 Inactive Lexapro 10 mg tablet RxNorm: 673235 1 Tablet(s) PO daily 07/10/2016 12/05/2016 Inactive Lexapro 10 mg tablet RxNorm: 605344 1 Tablet(s) PO daily 06/12/2016 07/09/2016 Inactive norethindrone acetate 1 mg-ethinyl estradiol 20 mcg tablet RxNorm: 8958516 1 Tablet(s) PO daily 06/12/2016 12/17/2016 Inactive hydrocodone 10 mg-acetaminophen 325 mg tablet RxNorm: 471617 1 Tablet(s) PO TID No Start Date 05/12/2017 Inactive phentermine 37.5 mg tablet RxNorm: 564541 1 Tablet(s) PO daily No Start Date 09/19/2016 Inactive norethindrone acetate 1 mg-ethinyl estradiol 20 mcg tablet RxNorm: 2461334 1 Tablet(s) PO daily No Start Date 06/11/2016 Inactive EEMT 1.25 mg-2.5 mg tablet RxNorm: 150049 1 Tablet(s) PO daily No Start Date [...] 1: 142/72 Code: 8480-6 BMI: 30.9 Code: 59935-0 Heart Rate 1: 82 bpm Height: 5'2" SpO2: 98% Weight: 169 lbs 12/08/2018 Blood Pressure 1: 130/74 Code: 8480-6 BMI: 30.7 Code: 76849-3 Heart Rate 1: 82 bpm Height: 5'2" SpO2: 97% Weight: 168 lbs 11/27/2018 Blood Pressure 1: 130/74 Code: 8480-6 Weight: 168 lbs 10/09/2018 Blood Pressure 1: 128/74 Code: 8480-6 BMI: 31.1 Code: 82671-8 Heart Rate 1: 81 bpm Height: 5'2" SpO2: 97% Weight: 170 lbs 08/29/2018 Blood Pressure 1: 120/70 Code: 8480-6 BMI: 31.1 Code: 40429-8 Heart Rate 1: 65 bpm Height: 5'2" Weight: 170 lbs 07/18/2018 Blood Pressure 1: 126/88 Code: 8480-6 Heart Rate 1: 78 bpm Height: SpO2: 97% Weight: 07/16/2018 Blood Pressure 1: 130/78 Code: 8480-6 Heart Rate 1: 84 bpm Weight: 172 lbs 06/18/2018 Blood Pressure 1: 128/80 Code: 8480-6 BMI: 31.1 Code: 71404-5 Heart Rate 1: 80 bpm Height: 5'2" SpO2: 97% Weight: 170 lbs 02/28/2018 Blood Pressure 1: 120/78 Code: 8480-6 BMI: 31.6 Code: 02936-2 Heart Rate 1: 66 bpm Height: 5'2" SpO2: 98% Weight: 173 lbs 12/09/2017 Blood Pressure 1: 116/74 Code: 8480-6 BMI: 31.5 Code: 82216-9 Heart Rate 1: 74 bpm Height: 5'2" SpO2: 95% Weight: 172 lbs 10/21/2017 Blood Pressure 1: 136/82 Code: 8480-6 BMI: 30.4 Code: 48811-1 Heart Rate 1: 79 bpm Height: 5'2" SpO2: 97% Weight: 166 lbs 09/26/2017 Blood Pressure 1: 122/80 Code: 8480-6 BMI: 30.4 Code: 92958-7 Heart Rate 1: 63 bpm Height: 5'2" SpO2: 98% Weight: 166 lbs 08/27/2017 Blood Pressure 1: 132/70 Code: 8480-6 BMI: 30.7 Code: 72308-8 Heart Rate 1: 89 bpm Height: 5'2" SpO2: 98% Weight: 168 lbs 05/27/2017 Blood Pressure 1: 132/72 Code: 8480-6 BMI: 28.9 Code: 23558-2 Heart Rate 1: 72 bpm Height: 5'2" SpO2: 98% Weight: 158 lbs 04/24/2017 Blood Pressure 1: 140/76 Code: 8480-6 BMI: 29.3 Code: 56023-9 Heart Rate 1: 77 bpm Height: 5'2" SpO2: 97% Weight: 160 lbs 03/27/2017 Blood Pressure 1: 128/74 Code: 8480-6 BMI: 29.1 Code: 48840-1 Heart Rate 1: 74 bpm Height: 5'2" SpO2: 98% Temperature: 36.8 (C) / 98.3 (F) Weight: 159 lbs 10/25/2016 Blood Pressure 1: 116/74 Code: 8480-6 BMI: 28.9 Code: 58318-1 Heart Rate 1: 68 bpm Height: 5'2" SpO2: 99% Weight: 158 lbs 09/20/2016 Blood Pressure 1: 116/70 Code: 8480-6 Heart Rate 1: 72 bpm Weight: 150 lbs 08/24/2016 Blood Pressure 1: 118/62 Code: 8480-6 BMI: 27.6 Code: 75878-1 Heart Rate 1: 63 bpm Height: 5'2" SpO2: 99% Weight: 151 lbs 06/12/2016 Blood Pressure 1: 122/74 Code: 8480-6 BMI: 26.9 Code: 27118-4 Heart Rate 1: 52 bpm Height: 5'2" [...] data Encounters Encounter Performer Location Codes Date 72439 EST. PATIENT, LEVEL III Diagnosis: Recurrent oral aphthae[ICD10: K12.0] [facility] CPT- 4: 17559 02/23/2019 54491 EST. PATIENT, LEVEL III Diagnosis: Chronic pain syndrome[ICD10: G89.4] [facility] CPT- 4: 82417 12/08/2018 ([id number]) Miscellaneous no charge Diagnosis: Overweight[ICD10: E66.3] Juju Jama MD, [facility] CPT-4: 22482 11/27/2018 55025 EST. PATIENT, LEVEL III Diagnosis: Chronic pain syndrome[ICD10: G89.4] Diagnosis: Menopausal and female climacteric states[ICD10: N95.1] Veda Jama MD, [facility] CPT-4: 20675 10/09/2018 ([id number]) Miscellaneous no charge Diagnosis: Overweight[ICD10: E66.3] Juju Jama MD, [facility] CPT-4: 28042 08/29/2018 48274 EST. PATIENT, LEVEL III Diagnosis: Generalized anxiety disorder[ICD10: F41.1] Diagnosis: Major depressive disorder, single episode, moderate[ICD10: F32.1] Veda Jama MD, [facility] CPT-4: 73807 07/18/2018 ([id number]) Miscellaneous no charge Diagnosis: Overweight[ICD10: E66.3] Juju Jama MD, [facility] CPT-4: 29517 07/16/2018 67391 EST. PATIENT, LEVEL III Diagnosis: Chronic pain syndrome[ICD10: G89.4] Diagnosis: Overweight[ICD10: E66.3] Veda Jama MD, [facility] CPT-4: 63468 06/18/2018 30088 EST. PATIENT, LEVEL IV Diagnosis: Chronic pain syndrome[ICD10: G89.4] Diagnosis: Overweight[ICD10: E66.3] Veda Jama MD, [facility] CPT-4: 64291 02/28/2018 86588 EST. PATIENT, LEVEL III Diagnosis: Chronic pain syndrome[ICD10: G89.4] Diagnosis: Overweight[ICD10: E66.3] Veda Jama MD, [facility] CPT-4: 64990 12/09/2017 54476 EST. PATIENT, LEVEL III Diagnosis: Chronic pain syndrome[ICD10: G89.4] Diagnosis: Overweight[ICD10: E66.3] Veda Jama MD, [facility] CPT-4: 16342 10/21/2017 ([id number]) Miscellaneous no charge Diagnosis: Overweight[ICD10: E66.3] Juju Jama MD, [facility] CPT-4: 59897 09/26/2017 32473 EST. PATIENT, LEVEL III Diagnosis: Chronic pain syndrome[ICD10: G89.4] Diagnosis: Overweight[ICD10: E66.3] Veda Jama MD, [facility] CPT-4: 33246 08/27/2017 88851 EST. PATIENT, LEVEL III Diagnosis: Chronic pain syndrome[ICD10: G89.4] Diagnosis: Generalized anxiety disorder[ICD10: F41.1] Diagnosis: Major depressive disorder, single episode, moderate[ICD10: F32.1] Diagnosis: Cellulitis of right lower limb[ICD10: L03.115] Veda Jama MD, [facility] CPT-4: 01213 05/27/2017 ([id number]) 81968 EST. PATIENT, LEVEL IV Diagnosis: Generalized anxiety disorder[ICD10: F41.1] Diagnosis: Major depressive disorder, single episode, moderate[ICD10: F32.1] Diagnosis: Menopausal and female climacteric states[ICD10: N95.1] Diagnosis: Chronic pain syndrome[ICD10: G89.4] Veda Jama MD, [facility] CPT- 4: 64194 04/24/2017 ([id number]) PREV VISIT EST AGE 18-39 Diagnosis: Encounter for gynecological examination (general) (routine) without abnormal findings[ICD10: Z01.419] Veda Jama MD, [facility] CPT-4: 18634 03/27/2017 ([id number]) 21728 EST. PATIENT, LEVEL III Diagnosis: Overweight[ICD10: E66.3] Veda Jama MD, [facility] CPT-4: 54396 10/25/2016 ([id number]) Miscellaneous no charge Diagnosis: Overweight[ICD10: E66.3] [facility] CPT-4: 17683 09/20/2016 34481 EST. PATIENT, LEVEL IV Diagnosis: Other fatigue[ICD10: R53.83] Diagnosis: Overweight[ICD10: E66.3] Diagnosis: Generalized anxiety disorder[ICD10: F41.1] Veda Jama MD, [facility] CPT-4: 41454 08/24/2016 ([id number]) OFFICE VISIT, NEW - LEVEL 4 Diagnosis: Generalized anxiety disorder[ICD10: F41.1] Diagnosis: Major depressive disorder, single episode, moderate[ICD10: F32.1] [facility] CPT-4: 13438 06/12/2016 Plan of Care Planned Activity Notes Codes Status Date Visit Plan: Princess haas - ongoing - will send RX - pt is to notify clinic if symptoms do not improve, if they worsen, or with any changes, questions, or concerns. Will refer to Dr. Bassett if symptoms persist. 02/23/2019 Appointment: Veda Duenas WPtel: [phone] [facility] (30 min) Complex 02/23/2019 Patient Education: Patient Medication Summary Completed 02/23/2019 Visit Plan: Chronic Pain Syndrome - pt has chronic pain - has been maintained on current medications, has not sought out other medications, only uses PRN pain medications as directed, and understands the consequences of over-medication. 12/08/2018 Appointment: Veda Duenas WPtel: [phone] [facility] (30 min) Complex 12/08/2018 Patient Education: Patient [...] or concerns. 10/09/2018 [phone] (15 min) Moderate 10/09/2018 Patient Education: Patient [...] this patient. 07/18/2018 Appointment: Veda Duenas WPtel: [id number] (15 min) Moderate 07/18/2018 Patient Education: [...] weight check. 06/18/2018 Appointment: Veda Duenas WPtel: [id number] (15 min) Moderate 06/18/2018 Patient Education: [...] weight check. 02/28/2018 Appointment: Veda Duenas WPtel: [facility] (30 min) Complex 02/28/2018 Patient Education: Patient Medication Summary Completed 02/28/2018 Patient Education: Obesity Completed 02/28/2018 Appointment: Veda Duenas WPtel: [facility] (15 min) Moderate 02/27/2018 Visit Plan: Chronic [...] weight check. 12/09/2017 Appointment: Veda Duenas WPtel: [facility] (15 min) Moderate 12/09/2017 Patient Education: Patient [...] for weight check. 10/21/2017 Appointment: Veda Duenastel: [address] [place], [place] [phone] (15 min) Moderate 10/21/2017 Patient Education: Patient Medication Summary Completed 10/21/2017 Patient Education: Obesity Completed 10/21/2017 Appointment: Nurse Visit 09/26/2017 Patient Education: Patient Medication Summary Completed 09/26/2017 Appointment: Veda Duenastel: [address] [place], [place] [phone] (30 min) Complex 08/30/2017 Visit Plan: Chronic [...] warmth, discharge. 05/27/2017 Appointment: Veda Duenas WPtel: [address] [place], [place] [address] (30 min) [facility] 05/27/2017 Patient Education: Patient Medication [...] RX. 04/24/2017 Appointment: [phone] ([facility] min) Complex 04/24/2017 Patient Education: Patient [...] per pharmacy. 03/27/2017 Appointment: Veda Duenas WPtel: [facility] [facility] 03/27/2017 Patient Education: Patient Medication Summary Completed 03/27/2017 Care Plan: BMI Above normal followup SELF-MGMT EDUC & TRAIN 1 PT Pending 11/07/2016 Visit Plan: Obesity - chronic issue with this patient. The pt has been counseled about diet changes, calorie restriction, and need to exercise. Pt will RTC in one month for weight check. 10/25/2016 Appointment: [phone] (15 min) Moderate 10/25/2016 Patient Education: Patient [...] weight check. 08/24/2016 Appointment: Radha Mcgowan WPtel: [phone] (30 min) Complex 08/24/2016 Appointment: Radha Mcgowan WPtel: [phone] [facility] [place] [address] (30 min) Complex 08/24/2016 Appointment: Radha Mcgowan WPtel: [phone] [phone] (30 min) Complex 08/24/2016 Patient Education: Patient [...] this patient. 06/12/2016 Appointment: Radha Mcgowan WPtel: [phone] New Patient 06/12/2016 Patient Education: Patient Medication [...]
--- OUTSIDE RECORDS SUMMARY | 2019-07-01 06:10 | XMS REPORT | CCD ---
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 Name Role Phone PP Unavailable CCM Unavailable Summary Purpose Interface Exchange Insurance Providers Payer name Policy type / Coverage type Covered libertarian ID Effective Begin Date Effective End Date [employer] [id number] 2018 Unknown Family history Father Diagnosis Age At Onset Diabetes Unknown Hyperlipidemia Unknown Hypertension Unknown Heart Attack Unknown Social History Social History Element Codes Description Effective Dates Marital status Unknown CJ 06/12/2016 Number of children Unknown 3 06/12/[address]: 864866607 Never smoker 06/12/[address]: 764838774 Never drinks alcohol 06/12/2016 Allergies, Adverse Reactions, [...] Start Date Stop Date Status Fill Instructions cyclobenzaprine 5 mg tablet RxNorm: 940588 TAKE 1 TABLET BY MOUTH THREE TIMES DAILY NEEDED FOR MUSCLE SPASM 05/18/2019 No Stop Date Active cyclobenzaprine 5 mg tablet RxNorm: 412123 TAKE 1 TABLET BY MOUTH THREE TIMES DAILY NEEDED FOR MUSCLE SPASM 04/24/2019 05/17/2019 Inactive hydrocodone 5 mg-acetaminophen 325 mg tablet RxNorm: 973712 1-1.5 Tablet(s) PO QID as needed 04/21/2019 05/20/2019 Active Lexapro 10 mg tablet RxNorm: 574251 TAKE 1 TABLET BY MOUTH ONCE DAILY 03/30/2019 No Stop Date Active hydrocodone 5 mg-acetaminophen 325 mg tablet RxNorm: 408207 1-1.5 Tablet(s) PO QID as needed 03/23/2019 04/20/2019 Inactive prednisolone 15 mg/5 mL oral solution RxNorm: 876496 5 Milliliter(s) PO BID 02/23/2019 02/27/2019 Inactive valacyclovir 1 gram tablet RxNorm: 448788 1 Tablet(s) PO TID 02/23/2019 03/01/2019 Inactive hydrocodone 5 mg-acetaminophen 325 mg tablet RxNorm: 073427 1-1.5 Tablet(s) PO QID as needed 02/23/2019 03/22/2019 Inactive hydrocodone 5 mg-acetaminophen 325 mg tablet RxNorm: 924444 1-1.5 Tablet(s) PO QID as needed 01/28/2019 02/26/2019 Inactive hydrocodone 5 mg-acetaminophen 325 mg tablet RxNorm: 408207 1-1.5 Tablet(s) PO QID as needed 01/01/2019 01/27/2019 Inactive cyclobenzaprine 5 mg tablet RxNorm: 717892 TAKE ONE TABLET BY MOUTH THREE TIMES DAILY NEEDED FOR MUSCLE SPASM 12/16/2018 04/23/2019 Inactive phentermine 37.5 mg tablet RxNorm: 927484 1 Tablet(s) PO daily 11/27/2018 No Stop Date Active Lexapro 10 mg tablet RxNorm: 095751 TAKE 1 TABLET BY MOUTH ONCE DAILY 11/26/2018 03/29/2019 Inactive cyclobenzaprine 5 mg tablet RxNorm: 916931 TAKE ONE TABLET BY MOUTH THREE TIMES DAILY NEEDED FOR MUSCLE SPASM 11/12/2018 12/15/2018 Inactive hydrocodone 5 mg-acetaminophen 325 mg tablet RxNorm: 698299 1-1.5 Tablet(s) PO QID as needed 11/06/2018 12/05/2018 Inactive Lyrica 100 mg capsule RxNorm: 015331 1 Capsule(s) PO BID as needed 10/31/2018 01/28/2019 Inactive pravastatin 20 mg tablet RxNorm: 603939 1 Tablet(s) PO QPM 10/28/2018 02/24/2019 Inactive pravastatin 20 mg tablet RxNorm: 306298 1 Tablet(s) PO QPM 10/28/2018 10/27/2018 Inactive EEMT 1.25 mg-2.5 mg tablet RxNorm: 612368 1 Tablet(s) PO daily 10/09/2018 01/06/2019 Inactive norethindrone acetate 1 mg-ethinyl estradiol 20 mcg tablet RxNorm: 0950855 1 Tablet(s) PO daily 10/09/2018 10/03/2019 Active hydrocodone 5 mg-acetaminophen 325 mg tablet RxNorm: 270754 1-1.5 Tablet(s) PO QID as needed 10/09/2018 11/05/2018 Inactive hydrocodone 5 mg-acetaminophen 325 mg tablet RxNorm: 227201 1-1.5 Tablet(s) PO QID as needed 09/11/2018 10/08/2018 Inactive phentermine 37.5 mg tablet RxNorm: 991847 1 Tablet(s) PO daily 08/29/2018 11/26/2018 Inactive cyclobenzaprine 5 mg tablet RxNorm: 970814 TAKE ONE TABLET BY MOUTH THREE TIMES DAILY NEEDED FOR MUSCLE SPASM 08/27/2018 11/11/2018 Inactive hydrocodone 5 mg-acetaminophen 325 mg tablet RxNorm: 712439 1-1.5 Tablet(s) PO QID as needed 08/14/2018 09/10/2018 Inactive Lexapro 10 mg tablet RxNorm: 347735 1 Tablet(s) PO daily 07/18/2018 08/16/2018 Inactive diazepam 10 mg tablet RxNorm: 712997 1 Tablet(s) PO TID as needed anxiety 07/11/2018 07/14/2018 Inactive Zorvolex 35 mg capsule RxNorm: 8110760 1 Capsule(s) PO TID 06/18/2018 No Stop Date Active hydrocodone 5 mg-acetaminophen 325 mg tablet RxNorm: 505235 1-1.5 Tablet(s) PO QID as needed 06/18/2018 07/17/2018 Inactive cyclobenzaprine 5 mg tablet RxNorm: 502780 TAKE ONE TABLET BY MOUTH THREE TIMES DAILY NEEDED FOR MUSCLE SPASM 06/04/2018 08/26/2018 Inactive hydrocodone 5 mg-acetaminophen 325 mg tablet RxNorm: 351128 1-1.5 Tablet(s) PO QID as needed 05/26/2018 06/17/2018 Inactive cyclobenzaprine 5 mg tablet RxNorm: 017386 TAKE ONE TABLET BY MOUTH THREE TIMES DAILY NEEDED FOR MUSCLE SPASM 05/07/2018 06/03/2018 Inactive ibuprofen 800 mg tablet RxNorm: 748577 TAKE ONE TABLET BY MOUTH THREE TIMES DAILY NEEDED 04/28/2018 No Stop Date Active hydrocodone 5 mg-acetaminophen 325 mg tablet RxNorm: 472278 1-1.5 Tablet(s) PO QID as needed 04/28/2018 05/25/2018 Inactive diazepam 10 mg tablet RxNorm: 159246 1 Tablet(s) PO TID as needed anxiety 04/22/2018 06/19/2018 Inactive hydrocodone 5 mg-acetaminophen 325 mg tablet RxNorm: 138303 1-1.5 Tablet(s) PO QID as needed 03/25/2018 04/23/2018 Inactive cyclobenzaprine 5 mg tablet RxNorm: 318847 TAKE ONE TABLET BY MOUTH THREE TIMES DAILY NEEDED FOR MUSCLE SPASM 03/17/2018 05/06/2018 Inactive hydrocodone 5 mg-acetaminophen 325 mg tablet RxNorm: 302768 1-1.5 Tablet(s) PO QID as needed 03/02/2018 03/24/2018 Inactive phentermine 37.5 mg tablet RxNorm: 614116 1 Tablet(s) PO daily 03/02/2018 08/28/2018 Inactive hydrocodone 5 mg-acetaminophen 325 mg tablet RxNorm: 107954 1-1.5 Tablet(s) PO QID as needed 02/03/2018 03/01/2018 Inactive diazepam 10 mg tablet RxNorm: 339055 1 Tablet(s) PO TID as needed anxiety 01/01/2018 02/28/2018 Inactive hydrocodone 5 mg-acetaminophen 325 mg tablet RxNorm: 672295 1-1.5 Tablet(s) PO QID as needed 12/09/2017 01/07/2018 Inactive ibuprofen 800 mg tablet RxNorm: 306753 1 Tablet(s) PO TID as needed 12/09/2017 01/07/2018 Inactive Lyrica 100 mg capsule RxNorm: 099098 1 Capsule(s) PO BID as needed 12/09/2017 03/07/2018 Inactive cyclobenzaprine 5 mg tablet RxNorm: 823415 TAKE ONE TABLET BY MOUTH THREE TIMES DAILY NEEDED FOR MUSCLE SPASM 12/03/2017 03/16/2018 Inactive hydrocodone 5 mg-acetaminophen 325 mg tablet RxNorm: 856643 1-1.5 Tablet(s) PO QID as needed 10/21/2017 11/19/2017 Inactive hydrocodone 7.5 mg-acetaminophen 325 mg tablet RxNorm: 413338 1 Tablet(s) PO QID as needed 09/26/2017 10/20/2017 Inactive phentermine 37.5 mg tablet RxNorm: 460353 1 Tablet(s) PO daily 09/26/2017 10/01/2017 Inactive Lyrica 100 mg capsule RxNorm: 817330 1 Capsule(s) PO BID as needed 09/12/2017 12/08/2017 Inactive hydrocodone 7.5 mg-acetaminophen 325 mg tablet RxNorm: 589247 1 Tablet(s) PO QID as needed 08/27/2017 09/23/2017 Inactive Belviq XR 20 mg tablet,extended release RxNorm: 9106154 1 Tablet(s) PO daily 08/27/2017 09/23/2017 Inactive cyclobenzaprine 5 mg tablet RxNorm: 156597 1 Tablet(s) PO TID as needed muscle spasms 08/19/2017 08/23/2017 Inactive hydrocodone 7.5 mg-acetaminophen 325 mg tablet RxNorm: 099298 1 Tablet(s) PO QID as needed 08/02/2017 08/26/2017 Inactive hydrocodone 7.5 mg-acetaminophen 325 mg tablet RxNorm: 174723 1 Tablet(s) PO TID as needed 08/02/2017 08/01/2017 Inactive diazepam 10 mg tablet RxNorm: 831030 1 Tablet(s) PO TID as needed anxiety 07/24/2017 02/02/2018 Inactive hydrocodone 7.5 mg-acetaminophen 325 mg tablet RxNorm: 831811 1 Tablet(s) PO TID as needed 07/11/2017 08/01/2017 Inactive Lyrica 100 mg capsule RxNorm: 260066 1 Capsule(s) PO BID as needed 06/24/2017 09/20/2017 Inactive hydrocodone 5 mg-acetaminophen 325 mg tablet RxNorm: 852762 1 Tablet(s) PO TID 06/24/2017 07/30/2017 Inactive prednisone 10 mg tablet RxNorm: 393021 1 Tablet(s) PO daily 06/18/2017 06/17/2017 Inactive 6-5-4-3-2-1 then stop prednisone 10 mg tablet RxNorm: 015607 1 Tablet(s) PO daily 06/18/2017 08/25/2017 Inactive 6-5-4-3-2-1 then stop Bactrim DS 800 mg-160 mg tablet RxNorm: 540555 1 Tablet(s) PO BID 06/11/2017 06/14/2017 Inactive Bactrim DS 800 mg-160 mg tablet RxNorm: 746922 1 Tablet(s) PO BID 06/03/2017 06/10/2017 Inactive mupirocin 2 % topical ointment RxNorm: 148645 1 Application TOP BID 06/03/2017 08/25/2017 Inactive Lyrica 100 mg capsule RxNorm: 236647 1 Capsule(s) PO BID as needed 05/27/2017 06/23/2017 Inactive Keflex 500 mg capsule RxNorm: 237593 1 Capsule(s) PO TID 05/27/2017 06/02/2017 Inactive Lexapro 10 mg tablet RxNorm: 140715 1 Tablet(s) PO daily 05/27/2017 08/25/2017 Inactive hydrocodone 5 mg-acetaminophen 325 mg tablet RxNorm: 775889 1 Tablet(s) PO TID 05/27/2017 06/23/2017 Inactive hydrocodone 7.5 mg-acetaminophen 325 mg tablet RxNorm: 402740 1 Tablet(s) PO TID as needed 05/13/2017 05/25/2017 Inactive hydrocodone 7.5 mg-acetaminophen 325 mg tablet RxNorm: 570731 1 Tablet(s) PO TID as needed 05/13/2017 05/12/2017 Inactive cyclobenzaprine 5 mg tablet RxNorm: 102029 TAKE ONE TABLET BY MOUTH THREE TIMES DAILY NEEDED FOR MUSCLE SPASM 05/01/2017 05/05/2017 Inactive hydrocodone 5 mg-acetaminophen 325 mg tablet RxNorm: 222006 1 Tablet(s) PO TID as needed 04/24/2017 05/12/2017 Inactive cyclobenzaprine 5 mg tablet RxNorm: 554043 1 Tablet(s) PO TID as needed muscle spasms 04/24/2017 04/28/2017 Inactive diazepam 10 mg tablet RxNorm: 425809 1 Tablet(s) PO TID as needed anxiety 02/22/2017 04/19/2017 Inactive norethindrone acetate 1 mg-ethinyl estradiol 20 mcg tablet RxNorm: 3078565 1 Tablet(s) PO daily 12/18/2016 07/15/2017 Inactive EEMT 1.25 mg-2.5 mg tablet RxNorm: 979401 1 Tablet(s) PO daily 12/06/2016 03/05/2017 Inactive EEMT 1.25 mg-2.5 mg tablet RxNorm: 628906 1 Tablet(s) PO daily 12/06/2016 12/05/2016 Inactive Lexapro 10 mg tablet RxNorm: 957071 1 Tablet(s) PO daily 12/06/2016 05/04/2017 Inactive diazepam 10 mg tablet RxNorm: 985997 1 Tablet(s) PO TID 11/09/2016 12/07/2016 Inactive phentermine 37.5 mg tablet RxNorm: 857141 1 Tablet(s) PO daily 10/25/2016 08/23/2017 Inactive EEMT 1.25 mg-2.5 mg tablet RxNorm: 237728 1 Tablet(s) PO daily 10/25/2016 12/05/2016 Inactive phentermine 37.5 mg tablet RxNorm: 182547 1 Tablet(s) PO daily 09/20/2016 10/24/2016 Inactive Lexapro 10 mg tablet RxNorm: 371649 1 Tablet(s) PO daily 07/10/2016 12/05/2016 Inactive Lexapro 10 mg tablet RxNorm: 150277 1 Tablet(s) PO daily 06/12/2016 07/09/2016 Inactive norethindrone acetate 1 mg-ethinyl estradiol 20 mcg tablet RxNorm: 5360612 1 Tablet(s) PO daily 06/12/2016 12/17/2016 Inactive hydrocodone 10 mg-acetaminophen 325 mg tablet RxNorm: 836351 1 Tablet(s) PO TID No Start Date 05/12/2017 Inactive phentermine 37.5 mg tablet RxNorm: 173816 1 Tablet(s) PO daily No Start Date 09/19/2016 Inactive norethindrone acetate 1 mg-ethinyl estradiol 20 mcg tablet RxNorm: 8741550 1 Tablet(s) PO daily No Start Date 06/11/2016 Inactive EEMT 1.25 mg-2.5 mg tablet RxNorm: 363441 1 Tablet(s) PO daily No Start Date [...] 1: 142/72 Code: 8480-6 BMI: 30.9 Code: 38458-9 Heart Rate 1: 82 bpm Height: 5'2" SpO2: 98% Weight: 169 lbs 12/08/2018 Blood Pressure 1: 130/74 Code: 8480-6 BMI: 30.7 Code: 55329-1 Heart Rate 1: 82 bpm Height: 5'2" SpO2: 97% Weight: 168 lbs 11/27/2018 Blood Pressure 1: 130/74 Code: 8480-6 Weight: 168 lbs 10/09/2018 Blood Pressure 1: 128/74 Code: 8480-6 BMI: 31.1 Code: 82179-1 Heart Rate 1: 81 bpm Height: 5'2" SpO2: 97% Weight: 170 lbs 08/29/2018 Blood Pressure 1: 120/70 Code: 8480-6 BMI: 31.1 Code: 58561-7 Heart Rate 1: 65 bpm Height: 5'2" Weight: 170 lbs 07/18/2018 Blood Pressure 1: 126/88 Code: 8480-6 Heart Rate 1: 78 bpm Height: SpO2: 97% Weight: 07/16/2018 Blood Pressure 1: 130/78 Code: 8480-6 Heart Rate 1: 84 bpm Weight: 172 lbs 06/18/2018 Blood Pressure 1: 128/80 Code: 8480-6 BMI: 31.1 Code: 04628-9 Heart Rate 1: 80 bpm Height: 5'2" SpO2: 97% Weight: 170 lbs 02/28/2018 Blood Pressure 1: 120/78 Code: 8480-6 BMI: 31.6 Code: 33860-3 Heart Rate 1: 66 bpm Height: 5'2" SpO2: 98% Weight: 173 lbs 12/09/2017 Blood Pressure 1: 116/74 Code: 8480-6 BMI: 31.5 Code: 06312-8 Heart Rate 1: 74 bpm Height: 5'2" SpO2: 95% Weight: 172 lbs 10/21/2017 Blood Pressure 1: 136/82 Code: 8480-6 BMI: 30.4 Code: 14080-1 Heart Rate 1: 79 bpm Height: 5'2" SpO2: 97% Weight: 166 lbs 09/26/2017 Blood Pressure 1: 122/80 Code: 8480-6 BMI: 30.4 Code: 50327-8 Heart Rate 1: 63 bpm Height: 5'2" SpO2: 98% Weight: 166 lbs 08/27/2017 Blood Pressure 1: 132/70 Code: 8480-6 BMI: 30.7 Code: 93452-0 Heart Rate 1: 89 bpm Height: 5'2" SpO2: 98% Weight: 168 lbs 05/27/2017 Blood Pressure 1: 132/72 Code: 8480-6 BMI: 28.9 Code: 96597-2 Heart Rate 1: 72 bpm Height: 5'2" SpO2: 98% Weight: 158 lbs 04/24/2017 Blood Pressure 1: 140/76 Code: 8480-6 BMI: 29.3 Code: 86680-6 Heart Rate 1: 77 bpm Height: 5'2" SpO2: 97% Weight: 160 lbs 03/27/2017 Blood Pressure 1: 128/74 Code: 8480-6 BMI: 29.1 Code: 85486-2 Heart Rate 1: 74 bpm Height: 5'2" SpO2: 98% Temperature: 36.8 (C) / 98.3 (F) Weight: 159 lbs 10/25/2016 Blood Pressure 1: 116/74 Code: 8480-6 BMI: 28.9 Code: 95442-8 Heart Rate 1: 68 bpm Height: 5'2" SpO2: 99% Weight: 158 lbs 09/20/2016 Blood Pressure 1: 116/70 Code: 8480-6 Heart Rate 1: 72 bpm Weight: 150 lbs 08/24/2016 Blood Pressure 1: 118/62 Code: 8480-6 BMI: 27.6 Code: 94067-0 Heart Rate 1: 63 bpm Height: 5'2" SpO2: 99% Weight: 151 lbs 06/12/2016 Blood Pressure 1: 122/74 Code: 8480-6 BMI: 26.9 Code: 85195-2 Heart Rate 1: 52 bpm Height: 5'2" [...] Recurrent oral aphthae[ICD10: K12.0] Veda Jama MD, [facility] CPT- 4: 59664 02/23/2019 [id number] EST. PATIENT, LEVEL III Diagnosis: Chronic pain syndrome[ICD10: G89.4] [facility] CPT- 4: 73827 12/08/2018 ([id number]) Miscellaneous no charge Diagnosis: Overweight[ICD10: E66.3] Juju Jama MD, [facility] CPT-4: 94984 11/27/2018 [id number] EST. PATIENT, LEVEL III Diagnosis: Chronic pain syndrome[ICD10: G89.4] Diagnosis: Menopausal and female climacteric states[ICD10: N95.1] Veda Jama MD, [facility] CPT-4: 46495 10/09/2018 ([id number]) Miscellaneous no charge Diagnosis: Overweight[ICD10: E66.3] Juju Jama MD, [facility] CPT-4: 95279 08/29/2018 53629 EST. PATIENT, LEVEL III Diagnosis: Generalized anxiety disorder[ICD10: F41.1] Diagnosis: Major depressive disorder, single episode, moderate[ICD10: F32.1] Veda Jama MD, [facility] CPT-4: 87147 07/18/2018 ([id number]) Miscellaneous no charge Diagnosis: Overweight[ICD10: E66.3] Juju Jama MD, [facility] CPT-4: 25881 07/16/2018 [id number] EST. PATIENT, LEVEL III Diagnosis: Chronic pain syndrome[ICD10: G89.4] Diagnosis: Overweight[ICD10: E66.3] Veda Jama MD, [facility] CPT-4: 59665 06/18/2018 17774 EST. PATIENT, LEVEL IV Diagnosis: Chronic pain syndrome[ICD10: G89.4] Diagnosis: Overweight[ICD10: E66.3] Veda Jama MD, [facility] CPT-4: 16603 02/28/2018 40429 EST. PATIENT, LEVEL III Diagnosis: Chronic pain syndrome[ICD10: G89.4] Diagnosis: Overweight[ICD10: E66.3] Veda Jama MD, [facility] CPT-4: 49269 12/09/2017 81155 EST. PATIENT, LEVEL III Diagnosis: Chronic pain syndrome[ICD10: G89.4] Diagnosis: Overweight[ICD10: E66.3] Veda Jama MD, [facility] CPT-4: 05050 10/21/2017 ([id number]) Miscellaneous no charge Diagnosis: Overweight[ICD10: E66.3] Juju Jama MD, [facility] CPT-4: 36064 09/26/2017 07959 EST. PATIENT, LEVEL III Diagnosis: Chronic pain syndrome[ICD10: G89.4] Diagnosis: Overweight[ICD10: E66.3] Veda Jama MD, [facility] CPT-4: 47132 08/27/2017 60427 EST. PATIENT, LEVEL III Diagnosis: Chronic pain syndrome[ICD10: G89.4] Diagnosis: Generalized anxiety disorder[ICD10: F41.1] Diagnosis: Major depressive disorder, single episode, moderate[ICD10: F32.1] Diagnosis: Cellulitis of right lower limb[ICD10: L03.115] Veda Jama MD, [facility] CPT-4: 16698 05/27/2017 ([id number]) 59688 EST. PATIENT, LEVEL IV Diagnosis: Generalized anxiety disorder[ICD10: F41.1] Diagnosis: Major depressive disorder, single episode, moderate[ICD10: F32.1] Diagnosis: Menopausal and female climacteric states[ICD10: N95.1] Diagnosis: Chronic pain syndrome[ICD10: G89.4] Veda Jama MD, [facility] CPT- 4: 48047 04/24/2017 ([id number]) PREV VISIT EST AGE 18-39 Diagnosis: Encounter for gynecological examination (general) (routine) without abnormal findings[ICD10: Z01.419] Veda Jama MD, [facility] CPT-4: 71666 03/27/2017 ([id number]) 35119 EST. PATIENT, LEVEL III Diagnosis: Overweight[ICD10: E66.3] Veda Jama MD, [facility] CPT-4: 41111 10/25/2016 ([id number]) Miscellaneous no charge Diagnosis: Overweight[ICD10: E66.3] Radha Jama MD, [facility] CPT-4: 21207 09/20/2016 34744 EST. PATIENT, LEVEL IV Diagnosis: Other fatigue[ICD10: R53.83] Diagnosis: Overweight[ICD10: E66.3] Diagnosis: Generalized anxiety disorder[ICD10: F41.1] Veda Jama MD, [facility] CPT-4: 53595 08/24/2016 ([id number]) OFFICE VISIT, NEW - LEVEL 4 Diagnosis: Generalized anxiety disorder[ICD10: F41.1] Diagnosis: Major depressive disorder, single episode, moderate[ICD10: F32.1] [facility] CPT-4: 69721 06/12/2016 Plan of Care Planned Activity Notes Codes Status Date Visit Plan: Princess haas - ongoing - will send RX - pt is to notify clinic if symptoms do not improve, if they worsen, or with any changes, questions, or concerns. Will refer to Dr. Bassett if symptoms persist. 02/23/2019 Appointment: Veda Duenas WPtel: [phone] [facility] (30 min) Complex 02/23/2019 Patient Education: Patient Medication Summary Completed 02/23/2019 Visit Plan: Chronic Pain Syndrome - pt has chronic pain - has been maintained on current medications, has not sought out other medications, only uses PRN pain medications as directed, and understands the consequences of over-medication. 12/08/2018 Appointment: Veda Duenas WPtel: [phone] [facility] (30 min) Complex 12/08/2018 Patient Education: Patient [...] or concerns. 10/09/2018 Appointment: Veda Duenas WPtel: [phone] [facility] (15 min) Moderate 10/09/2018 Patient Education: Patient [...] this patient. 07/18/2018 Appointment: Veda Duenas WPtel: [facility]8 [facility] (15 min) Moderate 07/18/2018 Patient Education: Patient [...] weight check. 06/18/2018 Appointment: Veda Duenas WPtel: [facility]8 [facility] (15 min) Moderate 06/18/2018 Patient Education: Patient [...] weight check. 02/28/2018 Appointment: [facility]el[facility] [place] ([place] min) Complex 02/28/2018 Patient Education: Patient Medication Summary Completed 02/28/2018 Patient Education: Obesity Completed 02/28/2018 Appointment: Veda Duenas WPtel: [facility]8 [facility] [place] (15 min) Moderate 02/27/2018 Visit Plan: [...] weight check. 12/09/2017 Appointment: [phone] [facility] ([place] min) Moderate 12/09/2017 Patient Education: Patient [...] weight check. 10/21/2017 Appointment: Veda Duenas WPtel: [facility] (15 min) Moderate 10/21/2017 Patient Education: Patient Medication Summary Completed 10/21/2017 Patient Education: Obesity Completed 10/21/2017 Appointment: Nurse Visit 09/26/2017 Patient Education: Patient Medication Summary Completed 09/26/2017 Appointment: Veda Duenastel: [facility] ([facility] min) Complex 08/30/2017 Visit Plan: Chronic [...] warmth, discharge. 05/27/2017 Appointment: Veda Duenas WPtel: [phone] [facility] (30 min) Complex 05/27/2017 Patient Education: Patient [...] RX. 04/24/2017 Appointment: Veda Duenas WPtel: [phone] [facility] (30 min) Complex 04/24/2017 Patient Education: Patient [...] per pharmacy. 03/27/2017 Appointment: Veda Duenas WPtel: [facility] [facility] 03/27/2017 Patient Education: Patient Medication Summary Completed 03/27/2017 Care Plan: BMI Above normal followup SELF-MGMT EDUC & TRAIN 1 PT Pending 11/07/2016 Visit Plan: Obesity - chronic issue with this patient. The pt has been counseled about diet changes, calorie restriction, and need to exercise. Pt will RTC in one month for weight check. 10/25/2016 Appointment: [phone] [facility] (15 min) Moderate 10/25/2016 Patient Education: Patient [...] weight check. 08/24/2016 Appointment: Radha Mcgowan WPtel: [address] [place], [place] [id number] [place] [address] (30 min) Complex 08/24/2016 Appointment: Radha Mcgowan WPtel: [facility]7 [facility] [place] [address] (30 min) Complex 08/24/2016 Appointment: Radha Mcgowan WPtel: [facility]8 [facility] [place] [address] (30 min) Complex 08/24/2016 Patient Education: Patient [...] appropriately prescribed for this patient. 06/12/2016 Appointment: Juan M Radha WPtel: [address] [place], [place] [phone] [place] [address] New Patient 06/12/2016 Patient Education: Patient Medication [...]
--- OUTSIDE RECORDS SUMMARY | 2019-07-01 06:11 | XMS REPORT | CCD ---
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 Name Role Phone PP Unavailable CCM Unavailable Summary Purpose Interface Exchange Insurance Providers Payer name Policy type / Coverage type Covered republican ID Effective Begin Date Effective End Date [employer] [id number] 2018 Unknown Family history Father Diagnosis Age At Onset Diabetes Unknown Hyperlipidemia Unknown Hypertension Unknown Heart Attack Unknown Social History Social History Element Codes Description Effective Dates Marital status Unknown CJ 06/12/2016 Number of children Unknown 3 06/12/[address]: 093485119 Never smoker 06/12/[address]: 270454819 Never drinks alcohol 06/12/2016 Allergies, Adverse Reactions, [...] Fill Instructions cyclobenzaprine 5 mg tablet RxNorm: 853481 TAKE 1 TABLET BY MOUTH THREE TIMES DAILY NEEDED FOR MUSCLE SPASM 04/24/2019 No Stop Date Active hydrocodone 5 mg-acetaminophen 325 mg tablet RxNorm: 765259 1-1.5 Tablet(s) PO QID as needed 04/21/2019 05/20/2019 Active Lexapro 10 mg tablet RxNorm: 145122 TAKE 1 TABLET BY MOUTH ONCE DAILY 03/30/2019 No Stop Date Active hydrocodone 5 mg-acetaminophen 325 mg tablet RxNorm: 976293 1-1.5 Tablet(s) PO QID as needed 03/23/2019 04/20/2019 Inactive prednisolone 15 mg/5 mL oral solution RxNorm: 646400 5 Milliliter(s) PO BID 02/23/2019 02/27/2019 Inactive valacyclovir 1 gram tablet RxNorm: 494823 1 Tablet(s) PO TID 02/23/2019 03/01/2019 Inactive hydrocodone 5 mg-acetaminophen 325 mg tablet RxNorm: 563730 1-1.5 Tablet(s) PO QID as needed 02/23/2019 03/22/2019 Inactive hydrocodone 5 mg-acetaminophen 325 mg tablet RxNorm: 798856 1-1.5 Tablet(s) PO QID as needed 01/28/2019 02/26/2019 Inactive hydrocodone 5 mg-acetaminophen 325 mg tablet RxNorm: 055040 1-1.5 Tablet(s) PO QID as needed 01/01/2019 01/27/2019 Inactive cyclobenzaprine 5 mg tablet RxNorm: 766917 TAKE ONE TABLET BY MOUTH THREE TIMES DAILY NEEDED FOR MUSCLE SPASM 12/16/2018 04/23/2019 Inactive phentermine 37.5 mg tablet RxNorm: 424695 1 Tablet(s) PO daily 11/27/2018 No Stop Date Active Lexapro 10 mg tablet RxNorm: 418966 TAKE 1 TABLET BY MOUTH ONCE DAILY 11/26/2018 03/29/2019 Inactive cyclobenzaprine 5 mg tablet RxNorm: 140983 TAKE ONE TABLET BY MOUTH THREE TIMES DAILY NEEDED FOR MUSCLE SPASM 11/12/2018 12/15/2018 Inactive hydrocodone 5 mg-acetaminophen 325 mg tablet RxNorm: 602189 1-1.5 Tablet(s) PO QID as needed 11/06/2018 12/05/2018 Inactive Lyrica 100 mg capsule RxNorm: 557771 1 Capsule(s) PO BID as needed 10/31/2018 01/28/2019 Inactive pravastatin 20 mg tablet RxNorm: 033304 1 Tablet(s) PO QPM 10/28/2018 02/24/2019 Inactive pravastatin 20 mg tablet RxNorm: 219361 1 Tablet(s) PO QPM 10/28/2018 10/27/2018 Inactive EEMT 1.25 mg-2.5 mg tablet RxNorm: 978601 1 Tablet(s) PO daily 10/09/2018 01/06/2019 Inactive norethindrone acetate 1 mg-ethinyl estradiol 20 mcg tablet RxNorm: 1648995 1 Tablet(s) PO daily 10/09/2018 10/03/2019 Active hydrocodone 5 mg-acetaminophen 325 mg tablet RxNorm: 767676 1-1.5 Tablet(s) PO QID as needed 10/09/2018 11/05/2018 Inactive hydrocodone 5 mg-acetaminophen 325 mg tablet RxNorm: 244997 1-1.5 Tablet(s) PO QID as needed 09/11/2018 10/08/2018 Inactive phentermine 37.5 mg tablet RxNorm: 484012 1 Tablet(s) PO daily 08/29/2018 11/26/2018 Inactive cyclobenzaprine 5 mg tablet RxNorm: 137016 TAKE ONE TABLET BY MOUTH THREE TIMES DAILY NEEDED FOR MUSCLE SPASM 08/27/2018 11/11/2018 Inactive hydrocodone 5 mg-acetaminophen 325 mg tablet RxNorm: 619561 1-1.5 Tablet(s) PO QID as needed 08/14/2018 09/10/2018 Inactive Lexapro 10 mg tablet RxNorm: 804396 1 Tablet(s) PO daily 07/18/2018 08/16/2018 Inactive diazepam 10 mg tablet RxNorm: 278710 1 Tablet(s) PO TID as needed anxiety 07/11/2018 07/14/2018 Inactive Zorvolex 35 mg capsule RxNorm: 5648828 1 Capsule(s) PO TID 06/18/2018 No Stop Date Active hydrocodone 5 mg-acetaminophen 325 mg tablet RxNorm: 435828 1-1.5 Tablet(s) PO QID as needed 06/18/2018 07/17/2018 Inactive cyclobenzaprine 5 mg tablet RxNorm: 647326 TAKE ONE TABLET BY MOUTH THREE TIMES DAILY NEEDED FOR MUSCLE SPASM 06/04/2018 08/26/2018 Inactive hydrocodone 5 mg-acetaminophen 325 mg tablet RxNorm: 472331 1-1.5 Tablet(s) PO QID as needed 05/26/2018 06/17/2018 Inactive cyclobenzaprine 5 mg tablet RxNorm: 811701 TAKE ONE TABLET BY MOUTH THREE TIMES DAILY NEEDED FOR MUSCLE SPASM 05/07/2018 06/03/2018 Inactive ibuprofen 800 mg tablet RxNorm: 282834 TAKE ONE TABLET BY MOUTH THREE TIMES DAILY NEEDED 04/28/2018 No Stop Date Active hydrocodone 5 mg-acetaminophen 325 mg tablet RxNorm: 081528 1-1.5 Tablet(s) PO QID as needed 04/28/2018 05/25/2018 Inactive diazepam 10 mg tablet RxNorm: 490644 1 Tablet(s) PO TID as needed anxiety 04/22/2018 06/19/2018 Inactive hydrocodone 5 mg-acetaminophen 325 mg tablet RxNorm: 648028 1-1.5 Tablet(s) PO QID as needed 03/25/2018 04/23/2018 Inactive cyclobenzaprine 5 mg tablet RxNorm: 387949 TAKE ONE TABLET BY MOUTH THREE TIMES DAILY NEEDED FOR MUSCLE SPASM 03/17/2018 05/06/2018 Inactive hydrocodone 5 mg-acetaminophen 325 mg tablet RxNorm: 666119 1-1.5 Tablet(s) PO QID as needed 03/02/2018 03/24/2018 Inactive phentermine 37.5 mg tablet RxNorm: 075958 1 Tablet(s) PO daily 03/02/2018 08/28/2018 Inactive hydrocodone 5 mg-acetaminophen 325 mg tablet RxNorm: 421700 1-1.5 Tablet(s) PO QID as needed 02/03/2018 03/01/2018 Inactive diazepam 10 mg tablet RxNorm: 751359 1 Tablet(s) PO TID as needed anxiety 01/01/2018 02/28/2018 Inactive hydrocodone 5 mg-acetaminophen 325 mg tablet RxNorm: 869160 1-1.5 Tablet(s) PO QID as needed 12/09/2017 01/07/2018 Inactive ibuprofen 800 mg tablet RxNorm: 115279 1 Tablet(s) PO TID as needed 12/09/2017 01/07/2018 Inactive Lyrica 100 mg capsule RxNorm: 166952 1 Capsule(s) PO BID as needed 12/09/2017 03/07/2018 Inactive cyclobenzaprine 5 mg tablet RxNorm: 914121 TAKE ONE TABLET BY MOUTH THREE TIMES DAILY NEEDED FOR MUSCLE SPASM 12/03/2017 03/16/2018 Inactive hydrocodone 5 mg-acetaminophen 325 mg tablet RxNorm: 917639 1-1.5 Tablet(s) PO QID as needed 10/21/2017 11/19/2017 Inactive hydrocodone 7.5 mg-acetaminophen 325 mg tablet RxNorm: 388454 1 Tablet(s) PO QID as needed 09/26/2017 10/20/2017 Inactive phentermine 37.5 mg tablet RxNorm: 388791 1 Tablet(s) PO daily 09/26/2017 10/01/2017 Inactive Lyrica 100 mg capsule RxNorm: 845413 1 Capsule(s) PO BID as needed 09/12/2017 12/08/2017 Inactive hydrocodone 7.5 mg-acetaminophen 325 mg tablet RxNorm: 607629 1 Tablet(s) PO QID as needed 08/27/2017 09/23/2017 Inactive Belviq XR 20 mg tablet,extended release RxNorm: 6394042 1 Tablet(s) PO daily 08/27/2017 09/23/2017 Inactive cyclobenzaprine 5 mg tablet RxNorm: 465382 1 Tablet(s) PO TID as needed muscle spasms 08/19/2017 08/23/2017 Inactive hydrocodone 7.5 mg-acetaminophen 325 mg tablet RxNorm: 499619 1 Tablet(s) PO QID as needed 08/02/2017 08/26/2017 Inactive hydrocodone 7.5 mg-acetaminophen 325 mg tablet RxNorm: 871905 1 Tablet(s) PO TID as needed 08/02/2017 08/01/2017 Inactive diazepam 10 mg tablet RxNorm: 555630 1 Tablet(s) PO TID as needed anxiety 07/24/2017 02/02/2018 Inactive hydrocodone 7.5 mg-acetaminophen 325 mg tablet RxNorm: 276745 1 Tablet(s) PO TID as needed 07/11/2017 08/01/2017 Inactive Lyrica 100 mg capsule RxNorm: 207273 1 Capsule(s) PO BID as needed 06/24/2017 09/20/2017 Inactive hydrocodone 5 mg-acetaminophen 325 mg tablet RxNorm: 071818 1 Tablet(s) PO TID 06/24/2017 07/30/2017 Inactive prednisone 10 mg tablet RxNorm: 647363 1 Tablet(s) PO daily 06/18/2017 06/17/2017 Inactive 6-5-4-3-2-1 then stop prednisone 10 mg tablet RxNorm: 579940 1 Tablet(s) PO daily 06/18/2017 08/25/2017 Inactive 6-5-4-3-2-1 then stop Bactrim DS 800 mg-160 mg tablet RxNorm: 003571 1 Tablet(s) PO BID 06/11/2017 06/14/2017 Inactive Bactrim DS 800 mg-160 mg tablet RxNorm: 040735 1 Tablet(s) PO BID 06/03/2017 06/10/2017 Inactive mupirocin 2 % topical ointment RxNorm: 069297 1 Application TOP BID 06/03/2017 08/25/2017 Inactive Lyrica 100 mg capsule RxNorm: 539283 1 Capsule(s) PO BID as needed 05/27/2017 06/23/2017 Inactive Keflex 500 mg capsule RxNorm: 321884 1 Capsule(s) PO TID 05/27/2017 06/02/2017 Inactive Lexapro 10 mg tablet RxNorm: 407186 1 Tablet(s) PO daily 05/27/2017 08/25/2017 Inactive hydrocodone 5 mg-acetaminophen 325 mg tablet RxNorm: 986512 1 Tablet(s) PO TID 05/27/2017 06/23/2017 Inactive hydrocodone 7.5 mg-acetaminophen 325 mg tablet RxNorm: 199415 1 Tablet(s) PO TID as needed 05/13/2017 05/25/2017 Inactive hydrocodone 7.5 mg-acetaminophen 325 mg tablet RxNorm: 637157 1 Tablet(s) PO TID as needed 05/13/2017 05/12/2017 Inactive cyclobenzaprine 5 mg tablet RxNorm: 535972 TAKE ONE TABLET BY MOUTH THREE TIMES DAILY NEEDED FOR MUSCLE SPASM 05/01/2017 05/05/2017 Inactive hydrocodone 5 mg-acetaminophen 325 mg tablet RxNorm: 044240 1 Tablet(s) PO TID as needed 04/24/2017 05/12/2017 Inactive cyclobenzaprine 5 mg tablet RxNorm: 130777 1 Tablet(s) PO TID as needed muscle spasms 04/24/2017 04/28/2017 Inactive diazepam 10 mg tablet RxNorm: 592935 1 Tablet(s) PO TID as needed anxiety 02/22/2017 04/19/2017 Inactive norethindrone acetate 1 mg-ethinyl estradiol 20 mcg tablet RxNorm: 8332918 1 Tablet(s) PO daily 12/18/2016 07/15/2017 Inactive EEMT 1.25 mg-2.5 mg tablet RxNorm: 644471 1 Tablet(s) PO daily 12/06/2016 03/05/2017 Inactive EEMT 1.25 mg-2.5 mg tablet RxNorm: 624702 1 Tablet(s) PO daily 12/06/2016 12/05/2016 Inactive Lexapro 10 mg tablet RxNorm: 758825 1 Tablet(s) PO daily 12/06/2016 05/04/2017 Inactive diazepam 10 mg tablet RxNorm: 855671 1 Tablet(s) PO TID 11/09/2016 12/07/2016 Inactive phentermine 37.5 mg tablet RxNorm: 960046 1 Tablet(s) PO daily 10/25/2016 08/23/2017 Inactive EEMT 1.25 mg-2.5 mg tablet RxNorm: 862971 1 Tablet(s) PO daily 10/25/2016 12/05/2016 Inactive phentermine 37.5 mg tablet RxNorm: 076384 1 Tablet(s) PO daily 09/20/2016 10/24/2016 Inactive Lexapro 10 mg tablet RxNorm: 922473 1 Tablet(s) PO daily 07/10/2016 12/05/2016 Inactive Lexapro 10 mg tablet RxNorm: 953372 1 Tablet(s) PO daily 06/12/2016 07/09/2016 Inactive norethindrone acetate 1 mg-ethinyl estradiol 20 mcg tablet RxNorm: 5440781 1 Tablet(s) PO daily 06/12/2016 12/17/2016 Inactive hydrocodone 10 mg-acetaminophen 325 mg tablet RxNorm: 633498 1 Tablet(s) PO TID No Start Date 05/12/2017 Inactive phentermine 37.5 mg tablet RxNorm: 178626 1 Tablet(s) PO daily No Start Date 09/19/2016 Inactive norethindrone acetate 1 mg-ethinyl estradiol 20 mcg tablet RxNorm: 9279933 1 Tablet(s) PO daily No Start Date 06/11/2016 Inactive EEMT 1.25 mg-2.5 mg tablet RxNorm: 883454 1 Tablet(s) PO daily No Start Date [...] affect 04/24/2017 None Full Exam - General 1996 Psychiatric appearance Overall: well-groomed, good eye contact [...] 1: 142/72 Code: 8480-6 BMI: 30.9 Code: 90982-7 Heart Rate 1: 82 bpm Height: 5'2" SpO2: 98% Weight: 169 lbs 12/08/2018 Blood Pressure 1: 130/74 Code: 8480-6 BMI: 30.7 Code: 08594-7 Heart Rate 1: 82 bpm Height: 5'2" SpO2: 97% Weight: 168 lbs 11/27/2018 Blood Pressure 1: 130/74 Code: 8480-6 Weight: 168 lbs 10/09/2018 Blood Pressure 1: 128/74 Code: 8480-6 BMI: 31.1 Code: 88788-9 Heart Rate 1: 81 bpm Height: 5'2" SpO2: 97% Weight: 170 lbs 08/29/2018 Blood Pressure 1: 120/70 Code: 8480-6 BMI: 31.1 Code: 50639-7 Heart Rate 1: 65 bpm Height: 5'2" Weight: 170 lbs 07/18/2018 Blood Pressure 1: 126/88 Code: 8480-6 Heart Rate 1: 78 bpm Height: SpO2: 97% Weight: 07/16/2018 Blood Pressure 1: 130/78 Code: 8480-6 Heart Rate 1: 84 bpm Weight: 172 lbs 06/18/2018 Blood Pressure 1: 128/80 Code: 8480-6 BMI: 31.1 Code: 78916-0 Heart Rate 1: 80 bpm Height: 5'2" SpO2: 97% Weight: 170 lbs 02/28/2018 Blood Pressure 1: 120/78 Code: 8480-6 BMI: 31.6 Code: 84339-0 Heart Rate 1: 66 bpm Height: 5'2" SpO2: 98% Weight: 173 lbs 12/09/2017 Blood Pressure 1: 116/74 Code: 8480-6 BMI: 31.5 Code: 11793-6 Heart Rate 1: 74 bpm Height: 5'2" SpO2: 95% Weight: 172 lbs 10/21/2017 Blood Pressure 1: 136/82 Code: 8480-6 BMI: 30.4 Code: 59582-0 Heart Rate 1: 79 bpm Height: 5'2" SpO2: 97% Weight: 166 lbs 09/26/2017 Blood Pressure 1: 122/80 Code: 8480-6 BMI: 30.4 Code: 41063-0 Heart Rate 1: 63 bpm Height: 5'2" SpO2: 98% Weight: 166 lbs 08/27/2017 Blood Pressure 1: 132/70 Code: 8480-6 BMI: 30.7 Code: 64519-5 Heart Rate 1: 89 bpm Height: 5'2" SpO2: 98% Weight: 168 lbs 05/27/2017 Blood Pressure 1: 132/72 Code: 8480-6 BMI: 28.9 Code: 81548-0 Heart Rate 1: 72 bpm Height: 5'2" SpO2: 98% Weight: 158 lbs 04/24/2017 Blood Pressure 1: 140/76 Code: 8480-6 BMI: 29.3 Code: 11063-2 Heart Rate 1: 77 bpm Height: 5'2" SpO2: 97% Weight: 160 lbs 03/27/2017 Blood Pressure 1: 128/74 Code: 8480-6 BMI: 29.1 Code: 64947-1 Heart Rate 1: 74 bpm Height: 5'2" SpO2: 98% Temperature: 36.8 (C) / 98.3 (F) Weight: 159 lbs 10/25/2016 Blood Pressure 1: 116/74 Code: 8480-6 BMI: 28.9 Code: 64361-6 Heart Rate 1: 68 bpm Height: 5'2" SpO2: 99% Weight: 158 lbs 09/20/2016 Blood Pressure 1: 116/70 Code: 8480-6 Heart Rate 1: 72 bpm Weight: 150 lbs 08/24/2016 Blood Pressure 1: 118/62 Code: 8480-6 BMI: 27.6 Code: 16180-8 Heart Rate 1: 63 bpm Height: 5'2" SpO2: 99% Weight: 151 lbs 06/12/2016 Blood Pressure 1: 122/74 Code: 8480-6 BMI: 26.9 Code: 11662-6 Heart Rate 1: 52 bpm Height: 5'2" [...] (18-39 years) Menstrual History last menstrual period 20-14-__ 03/27/2017 None well woman exam (18-39 years) [...] K12.0] [facility] CPT- 4: 25689 02/23/2019 [id number] EST. PATIENT, LEVEL III Diagnosis: Chronic pain syndrome[ICD10: G89.4] [facility] CPT- 4: 23442 12/08/2018 ([id number]) Miscellaneous no charge Diagnosis: Overweight[ICD10: E66.3] [facility] CPT-4: 12532 11/27/2018 94578 EST. PATIENT, LEVEL III Diagnosis: Chronic pain syndrome[ICD10: G89.4] Diagnosis: Menopausal and female climacteric states[ICD10: N95.1] Veda Jama MD, [facility] CPT-4: 35500 10/09/2018 ([id number]) Miscellaneous no charge Diagnosis: Overweight[ICD10: E66.3] Juju Jama MD, [facility] CPT-4: 24122 08/29/2018 [id number] EST. PATIENT, LEVEL III Diagnosis: Generalized anxiety disorder[ICD10: F41.1] Diagnosis: Major depressive disorder, single episode, moderate[ICD10: F32.1] Veda Jama MD, [facility] CPT-4: 92270 07/18/2018 ([id number]) Miscellaneous no charge Diagnosis: Overweight[ICD10: E66.3] Juju Jama MD, [facility] CPT-4: 03525 07/16/2018 87564 EST. PATIENT, LEVEL III Diagnosis: Chronic pain syndrome[ICD10: G89.4] Diagnosis: Overweight[ICD10: E66.3] Veda Jama MD, [facility] CPT-4: 83300 06/18/2018 58896 EST. PATIENT, LEVEL IV Diagnosis: Chronic pain syndrome[ICD10: G89.4] Diagnosis: Overweight[ICD10: E66.3] Veda Jama MD, [facility] CPT-4: 05189 02/28/2018 90838 EST. PATIENT, LEVEL III Diagnosis: Chronic pain syndrome[ICD10: G89.4] Diagnosis: Overweight[ICD10: E66.3] Veda Jama MD, [facility] CPT-4: 95992 12/09/2017 03779 EST. PATIENT, LEVEL III Diagnosis: Chronic pain syndrome[ICD10: G89.4] Diagnosis: Overweight[ICD10: E66.3] Veda Jama MD, [facility] CPT-4: 89071 10/21/2017 ([id number]) Miscellaneous no charge Diagnosis: Overweight[ICD10: E66.3] Juju Jama MD, [facility] CPT-4: 07810 09/26/2017 51126 EST. PATIENT, LEVEL III Diagnosis: Chronic pain syndrome[ICD10: G89.4] Diagnosis: Overweight[ICD10: E66.3] Veda Jama MD, [facility] CPT-4: 76767 08/27/2017 68780 EST. PATIENT, LEVEL III Diagnosis: Chronic pain syndrome[ICD10: G89.4] Diagnosis: Generalized anxiety disorder[ICD10: F41.1] Diagnosis: Major depressive disorder, single episode, moderate[ICD10: F32.1] Diagnosis: Cellulitis of right lower limb[ICD10: L03.115] Veda Jama MD, [facility] CPT-4: 54027 05/27/2017 ([id number]) 65430 EST. PATIENT, LEVEL IV Diagnosis: Generalized anxiety disorder[ICD10: F41.1] Diagnosis: Major depressive disorder, single episode, moderate[ICD10: F32.1] Diagnosis: Menopausal and female climacteric states[ICD10: N95.1] Diagnosis: Chronic pain syndrome[ICD10: G89.4] Veda Jama MD, [facility] CPT- 4: 85405 04/24/2017 ([id number]) PREV VISIT EST AGE 18-39 Diagnosis: Encounter for gynecological examination (general) (routine) without abnormal findings[ICD10: Z01.419] Veda Jama MD, [facility] CPT-4: 91339 03/27/2017 ([id number]) 35241 EST. PATIENT, LEVEL III Diagnosis: Overweight[ICD10: E66.3] Veda Jama MD, [facility] CPT-4: 98615 10/25/2016 ([id number]) Miscellaneous no charge Diagnosis: Overweight[ICD10: E66.3] Radha Jama MD, [facility] CPT-4: 13370 09/20/2016 56093 EST. PATIENT, LEVEL IV Diagnosis: Other fatigue[ICD10: R53.83] Diagnosis: Overweight[ICD10: E66.3] Diagnosis: Generalized anxiety disorder[ICD10: F41.1] Veda Jama MD, [facility] CPT-4: 34654 08/24/2016 ([id number]) OFFICE VISIT, NEW - LEVEL 4 Diagnosis: Generalized anxiety disorder[ICD10: F41.1] Diagnosis: Major depressive disorder, single episode, moderate[ICD10: F32.1] Veda Jama MD, [facility] CPT-4: 89946 06/12/2016 Plan of Care Planned Activity Notes Codes Status Date Visit Plan: Princess haas - ongoing - will send RX - pt is to notify clinic if symptoms do not improve, if they worsen, or with any changes, questions, or concerns. Will refer to Dr. Bassett if symptoms persist. 02/23/2019 Appointment: Veda Duenas WPtel: [phone] [facility] (30 min) Complex 02/23/2019 Patient Education: Patient Medication Summary Completed 02/23/2019 Visit Plan: Chronic Pain Syndrome - pt has chronic pain - has been maintained on current medications, has not sought out other medications, only uses PRN pain medications as directed, and understands the consequences of over-medication. 12/08/2018 Appointment: Veda Duenas WPtel: [phone] [facility] (30 min) Complex 12/08/2018 Patient [...] any questions or concerns. 10/09/2018 Appointment: Veda Duenastel: [phone] [facility] (15 min) Moderate 10/09/2018 Patient Education: Patient [...] this patient. 07/18/2018 Appointment: Veda Duenas WPtel: [facility] (15 min) Moderate 07/18/2018 Patient Education: Patient [...] weight check. 06/18/2018 Appointment: Veda Duenas WPtel: [facility]5 [facility] (15 min) Moderate [...] weight check. 02/28/2018 Appointment: Veda Duenas WPtel: [facility]5 [facility] (30 min) Complex 02/28/2018 Patient Education: Patient Medication Summary Completed 02/28/2018 Patient Education: Obesity Completed 02/28/2018 Appointment: Veda Duenas WPtel: [facility]5 [facility] (15 min) Moderate 02/27/2018 Visit Plan: [...] month for weight check. 12/09/2017 Appointment: Veda Duenastel: [facility]5 [facility] (15 min) Moderate 12/09/2017 Patient Education: [...] for weight check. 10/21/2017 Appointment: Veda Duenastel: [facility]5 [facility] (15 min) Moderate 10/21/2017 Patient Education: Patient Medication Summary Completed 10/21/2017 Patient Education: Obesity Completed 10/21/2017 Appointment: Nurse Visit 09/26/2017 Patient Education: Patient Medication Summary Completed 09/26/2017 Appointment: [facility]eda Duenas[facility] ([facility] 08/30/2017 Visit Plan: Chronic [...] worsening redness, warmth, discharge. 05/27/2017 Appointment: Veda Dueans WPtel: [phone] [facility] (30 min) Complex 05/27/2017 Patient Education: Patient [...] RX. 04/24/2017 Appointment: Veda Duenas WPtel: [phone] [facility] (30 min) Complex 04/24/2017 Patient [...] per pharmacy. 03/27/2017 Appointment: Veda Duenas WPtel: [facility]5 [facility] 03/27/2017 Patient Education: Patient Medication Summary Completed 03/27/2017 Care Plan: BMI Above normal followup SELF-MGMT EDUC & TRAIN 1 PT Pending 11/07/2016 Visit Plan: Obesity - chronic issue with this patient. The pt has been counseled about diet changes, calorie restriction, and need to exercise. Pt will RTC in one month for weight check. 10/25/2016 Appointment: Veda Duenas WPtel: [address] [place], [place] [id number] (15 min) Moderate 10/25/2016 Patient Education: Patient [...] weight check. 08/24/2016 Appointment: Radha Mcgowan WPtel: [facility]8 [facility] [place] [address] (30 min) Complex 08/24/2016 Appointment: Radha Mcgowan WPtel: [facility]3 [facility] [place] [address] (30 min) Complex 08/24/2016 Appointment: Juan M Radha WPtel: [facility]5 [facility] [place] [address] (30 min) Complex 08/24/2016 Patient Education: Patient [...] patient. 06/12/2016 Appointment: Juan M Radha WPtel: [address] [place], [place] [id number] [place] [address] New Patient 06/12/2016 Patient Education: Patient Medication [...]
--- OUTSIDE RECORDS SUMMARY | 2019-07-01 06:13 | XMS REPORT | CCD ---
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 Name Role Phone PP Unavailable CCM Unavailable Summary Purpose Interface Exchange Insurance Providers Payer name Policy type / Coverage type Covered constitution party ID Effective Begin Date Effective End Date [employer] [id number] 2018 Unknown Family history Father Diagnosis Age At Onset Diabetes Unknown Hyperlipidemia Unknown Hypertension Unknown Heart Attack Unknown Social History Social History Element Codes Description Effective Dates Marital status Unknown CJ 06/12/2016 Number of children Unknown 3 06/12/[address]: 154160153 Never smoker 06/12/[address]: 445341119 Never drinks alcohol 06/12/2016 Allergies, Adverse Reactions, [...] hydrocodone 5 mg-acetaminophen 325 mg tablet RxNorm: 074620 1-1.5 Tablet(s) PO QID as needed 04/21/2019 05/20/2019 Active Lexapro 10 mg tablet RxNorm: 181537 TAKE 1 TABLET BY MOUTH ONCE DAILY 03/30/2019 No Stop Date Active hydrocodone 5 mg-acetaminophen 325 mg tablet RxNorm: 188998 1-1.5 Tablet(s) PO QID as needed 03/23/2019 04/20/2019 Inactive prednisolone 15 mg/5 mL oral solution RxNorm: 584636 5 Milliliter(s) PO BID 02/23/2019 02/27/2019 Inactive valacyclovir 1 gram tablet RxNorm: 008683 1 Tablet(s) PO TID 02/23/2019 03/01/2019 Inactive hydrocodone 5 mg-acetaminophen 325 mg tablet RxNorm: 491022 1-1.5 Tablet(s) PO QID as needed 02/23/2019 03/22/2019 Inactive hydrocodone 5 mg-acetaminophen 325 mg tablet RxNorm: 190374 1-1.5 Tablet(s) PO QID as needed 01/28/2019 02/26/2019 Inactive hydrocodone 5 mg-acetaminophen 325 mg tablet RxNorm: 615435 1-1.5 Tablet(s) PO QID as needed 01/01/2019 01/27/2019 Inactive cyclobenzaprine 5 mg tablet RxNorm: 749951 TAKE ONE TABLET BY MOUTH THREE TIMES DAILY NEEDED FOR MUSCLE SPASM 12/16/2018 No Stop Date Active phentermine 37.5 mg tablet RxNorm: 301483 1 Tablet(s) PO daily 11/27/2018 No Stop Date Active Lexapro 10 mg tablet RxNorm: 434946 TAKE 1 TABLET BY MOUTH ONCE DAILY 11/26/2018 03/29/2019 Inactive cyclobenzaprine 5 mg tablet RxNorm: 077872 TAKE ONE TABLET BY MOUTH THREE TIMES DAILY NEEDED FOR MUSCLE SPASM 11/12/2018 12/15/2018 Inactive hydrocodone 5 mg-acetaminophen 325 mg tablet RxNorm: 151473 1-1.5 Tablet(s) PO QID as needed 11/06/2018 12/05/2018 Inactive Lyrica 100 mg capsule RxNorm: 947008 1 Capsule(s) PO BID as needed 10/31/2018 01/28/2019 Inactive pravastatin 20 mg tablet RxNorm: 668407 1 Tablet(s) PO QPM 10/28/2018 02/24/2019 Inactive pravastatin 20 mg tablet RxNorm: 895839 1 Tablet(s) PO QPM 10/28/2018 10/27/2018 Inactive EEMT 1.25 mg-2.5 mg tablet RxNorm: 001368 1 Tablet(s) PO daily 10/09/2018 01/06/2019 Inactive norethindrone acetate 1 mg-ethinyl estradiol 20 mcg tablet RxNorm: 5802903 1 Tablet(s) PO daily 10/09/2018 10/03/2019 Active hydrocodone 5 mg-acetaminophen 325 mg tablet RxNorm: 196375 1-1.5 Tablet(s) PO QID as needed 10/09/2018 11/05/2018 Inactive hydrocodone 5 mg-acetaminophen 325 mg tablet RxNorm: 771129 1-1.5 Tablet(s) PO QID as needed 09/11/2018 10/08/2018 Inactive phentermine 37.5 mg tablet RxNorm: 012356 1 Tablet(s) PO daily 08/29/2018 11/26/2018 Inactive cyclobenzaprine 5 mg tablet RxNorm: 410444 TAKE ONE TABLET BY MOUTH THREE TIMES DAILY NEEDED FOR MUSCLE SPASM 08/27/2018 11/11/2018 Inactive hydrocodone 5 mg-acetaminophen 325 mg tablet RxNorm: 767508 1-1.5 Tablet(s) PO QID as needed 08/14/2018 09/10/2018 Inactive Lexapro 10 mg tablet RxNorm: 490792 1 Tablet(s) PO daily 07/18/2018 08/16/2018 Inactive diazepam 10 mg tablet RxNorm: 124815 1 Tablet(s) PO TID as needed anxiety 07/11/2018 07/14/2018 Inactive Zorvolex 35 mg capsule RxNorm: 7202908 1 Capsule(s) PO TID 06/18/2018 No Stop Date Active hydrocodone 5 mg-acetaminophen 325 mg tablet RxNorm: 483309 1-1.5 Tablet(s) PO QID as needed 06/18/2018 07/17/2018 Inactive cyclobenzaprine 5 mg tablet RxNorm: 066630 TAKE ONE TABLET BY MOUTH THREE TIMES DAILY NEEDED FOR MUSCLE SPASM 06/04/2018 08/26/2018 Inactive hydrocodone 5 mg-acetaminophen 325 mg tablet RxNorm: 551638 1-1.5 Tablet(s) PO QID as needed 05/26/2018 06/17/2018 Inactive cyclobenzaprine 5 mg tablet RxNorm: 540297 TAKE ONE TABLET BY MOUTH THREE TIMES DAILY NEEDED FOR MUSCLE SPASM 05/07/2018 06/03/2018 Inactive ibuprofen 800 mg tablet RxNorm: 262189 TAKE ONE TABLET BY MOUTH THREE TIMES DAILY NEEDED 04/28/2018 No Stop Date Active hydrocodone 5 mg-acetaminophen 325 mg tablet RxNorm: 631614 1-1.5 Tablet(s) PO QID as needed 04/28/2018 05/25/2018 Inactive diazepam 10 mg tablet RxNorm: 352569 1 Tablet(s) PO TID as needed anxiety 04/22/2018 06/19/2018 Inactive hydrocodone 5 mg-acetaminophen 325 mg tablet RxNorm: 485253 1-1.5 Tablet(s) PO QID as needed 03/25/2018 04/23/2018 Inactive cyclobenzaprine 5 mg tablet RxNorm: 219893 TAKE ONE TABLET BY MOUTH THREE TIMES DAILY NEEDED FOR MUSCLE SPASM 03/17/2018 05/06/2018 Inactive hydrocodone 5 mg-acetaminophen 325 mg tablet RxNorm: 814765 1-1.5 Tablet(s) PO QID as needed 03/02/2018 03/24/2018 Inactive phentermine 37.5 mg tablet RxNorm: 180439 1 Tablet(s) PO daily 03/02/2018 08/28/2018 Inactive hydrocodone 5 mg-acetaminophen 325 mg tablet RxNorm: 905692 1-1.5 Tablet(s) PO QID as needed 02/03/2018 03/01/2018 Inactive diazepam 10 mg tablet RxNorm: 687048 1 Tablet(s) PO TID as needed anxiety 01/01/2018 02/28/2018 Inactive hydrocodone 5 mg-acetaminophen 325 mg tablet RxNorm: 579195 1-1.5 Tablet(s) PO QID as needed 12/09/2017 01/07/2018 Inactive ibuprofen 800 mg tablet RxNorm: 634623 1 Tablet(s) PO TID as needed 12/09/2017 01/07/2018 Inactive Lyrica 100 mg capsule RxNorm: 072817 1 Capsule(s) PO BID as needed 12/09/2017 03/07/2018 Inactive cyclobenzaprine 5 mg tablet RxNorm: 395442 TAKE ONE TABLET BY MOUTH THREE TIMES DAILY NEEDED FOR MUSCLE SPASM 12/03/2017 03/16/2018 Inactive hydrocodone 5 mg-acetaminophen 325 mg tablet RxNorm: 217391 1-1.5 Tablet(s) PO QID as needed 10/21/2017 11/19/2017 Inactive hydrocodone 7.5 mg-acetaminophen 325 mg tablet RxNorm: 298546 1 Tablet(s) PO QID as needed 09/26/2017 10/20/2017 Inactive phentermine 37.5 mg tablet RxNorm: 850998 1 Tablet(s) PO daily 09/26/2017 10/01/2017 Inactive Lyrica 100 mg capsule RxNorm: 878344 1 Capsule(s) PO BID as needed 09/12/2017 12/08/2017 Inactive hydrocodone 7.5 mg-acetaminophen 325 mg tablet RxNorm: 403355 1 Tablet(s) PO QID as needed 08/27/2017 09/23/2017 Inactive Belviq XR 20 mg tablet,extended release RxNorm: 8914552 1 Tablet(s) PO daily 08/27/2017 09/23/2017 Inactive cyclobenzaprine 5 mg tablet RxNorm: 658245 1 Tablet(s) PO TID as needed muscle spasms 08/19/2017 08/23/2017 Inactive hydrocodone 7.5 mg-acetaminophen 325 mg tablet RxNorm: 403156 1 Tablet(s) PO QID as needed 08/02/2017 08/26/2017 Inactive hydrocodone 7.5 mg-acetaminophen 325 mg tablet RxNorm: 489848 1 Tablet(s) PO TID as needed 08/02/2017 08/01/2017 Inactive diazepam 10 mg tablet RxNorm: 322890 1 Tablet(s) PO TID as needed anxiety 07/24/2017 02/02/2018 Inactive hydrocodone 7.5 mg-acetaminophen 325 mg tablet RxNorm: 950076 1 Tablet(s) PO TID as needed 07/11/2017 08/01/2017 Inactive Lyrica 100 mg capsule RxNorm: 745113 1 Capsule(s) PO BID as needed 06/24/2017 09/20/2017 Inactive hydrocodone 5 mg-acetaminophen 325 mg tablet RxNorm: 131781 1 Tablet(s) PO TID 06/24/2017 07/30/2017 Inactive prednisone 10 mg tablet RxNorm: 777617 1 Tablet(s) PO daily 06/18/2017 06/17/2017 Inactive 6-5-4-3-2-1 then stop prednisone 10 mg tablet RxNorm: 869399 1 Tablet(s) PO daily 06/18/2017 08/25/2017 Inactive 6-5-4-3-2-1 then stop Bactrim DS 800 mg-160 mg tablet RxNorm: 781659 1 Tablet(s) PO BID 06/11/2017 06/14/2017 Inactive Bactrim DS 800 mg-160 mg tablet RxNorm: 952906 1 Tablet(s) PO BID 06/03/2017 06/10/2017 Inactive mupirocin 2 % topical ointment RxNorm: 247612 1 Application TOP BID 06/03/2017 08/25/2017 Inactive Lyrica 100 mg capsule RxNorm: 611877 1 Capsule(s) PO BID as needed 05/27/2017 06/23/2017 Inactive Keflex 500 mg capsule RxNorm: 354798 1 Capsule(s) PO TID 05/27/2017 06/02/2017 Inactive Lexapro 10 mg tablet RxNorm: 661141 1 Tablet(s) PO daily 05/27/2017 08/25/2017 Inactive hydrocodone 5 mg-acetaminophen 325 mg tablet RxNorm: 230117 1 Tablet(s) PO TID 05/27/2017 06/23/2017 Inactive hydrocodone 7.5 mg-acetaminophen 325 mg tablet RxNorm: 563717 1 Tablet(s) PO TID as needed 05/13/2017 05/25/2017 Inactive hydrocodone 7.5 mg-acetaminophen 325 mg tablet RxNorm: 824730 1 Tablet(s) PO TID as needed 05/13/2017 05/12/2017 Inactive cyclobenzaprine 5 mg tablet RxNorm: 611639 TAKE ONE TABLET BY MOUTH THREE TIMES DAILY NEEDED FOR MUSCLE SPASM 05/01/2017 05/05/2017 Inactive hydrocodone 5 mg-acetaminophen 325 mg tablet RxNorm: 606329 1 Tablet(s) PO TID as needed 04/24/2017 05/12/2017 Inactive cyclobenzaprine 5 mg tablet RxNorm: 793173 1 Tablet(s) PO TID as needed muscle spasms 04/24/2017 04/28/2017 Inactive diazepam 10 mg tablet RxNorm: 549460 1 Tablet(s) PO TID as needed anxiety 02/22/2017 04/19/2017 Inactive norethindrone acetate 1 mg-ethinyl estradiol 20 mcg tablet RxNorm: 4512115 1 Tablet(s) PO daily 12/18/2016 07/15/2017 Inactive EEMT 1.25 mg-2.5 mg tablet RxNorm: 952386 1 Tablet(s) PO daily 12/06/2016 03/05/2017 Inactive EEMT 1.25 mg-2.5 mg tablet RxNorm: 615941 1 Tablet(s) PO daily 12/06/2016 12/05/2016 Inactive Lexapro 10 mg tablet RxNorm: 234214 1 Tablet(s) PO daily 12/06/2016 05/04/2017 Inactive diazepam 10 mg tablet RxNorm: 016471 1 Tablet(s) PO TID 11/09/2016 12/07/2016 Inactive phentermine 37.5 mg tablet RxNorm: 006192 1 Tablet(s) PO daily 10/25/2016 08/23/2017 Inactive EEMT 1.25 mg-2.5 mg tablet RxNorm: 291522 1 Tablet(s) PO daily 10/25/2016 12/05/2016 Inactive phentermine 37.5 mg tablet RxNorm: 684029 1 Tablet(s) PO daily 09/20/2016 10/24/2016 Inactive Lexapro 10 mg tablet RxNorm: 577866 1 Tablet(s) PO daily 07/10/2016 12/05/2016 Inactive Lexapro 10 mg tablet RxNorm: 949556 1 Tablet(s) PO daily 06/12/2016 07/09/2016 Inactive norethindrone acetate 1 mg-ethinyl estradiol 20 mcg tablet RxNorm: 6086940 1 Tablet(s) PO daily 06/12/2016 12/17/2016 Inactive hydrocodone 10 mg-acetaminophen 325 mg tablet RxNorm: 669998 1 Tablet(s) PO TID No Start Date 05/12/2017 Inactive phentermine 37.5 mg tablet RxNorm: 803095 1 Tablet(s) PO daily No Start Date 09/19/2016 Inactive norethindrone acetate 1 mg-ethinyl estradiol 20 mcg tablet RxNorm: 9045699 1 Tablet(s) PO daily No Start Date 06/11/2016 Inactive EEMT 1.25 mg-2.5 mg tablet RxNorm: 489046 1 Tablet(s) PO daily No Start Date [...] 1: 142/72 Code: 8480-6 BMI: 30.9 Code: 85959-6 Heart Rate 1: 82 bpm Height: 5'2" SpO2: 98% Weight: 169 lbs 12/08/2018 Blood Pressure 1: 130/74 Code: 8480-6 BMI: 30.7 Code: 78157-3 Heart Rate 1: 82 bpm Height: 5'2" SpO2: 97% Weight: 168 lbs 11/27/2018 Blood Pressure 1: 130/74 Code: 8480-6 Weight: 168 lbs 10/09/2018 Blood Pressure 1: 128/74 Code: 8480-6 BMI: 31.1 Code: 71360-2 Heart Rate 1: 81 bpm Height: 5'2" SpO2: 97% Weight: 170 lbs 08/29/2018 Blood Pressure 1: 120/70 Code: 8480-6 BMI: 31.1 Code: 78096-5 Heart Rate 1: 65 bpm Height: 5'2" Weight: 170 lbs 07/18/2018 Blood Pressure 1: 126/88 Code: 8480-6 Heart Rate 1: 78 bpm Height: SpO2: 97% Weight: 07/16/2018 Blood Pressure 1: 130/78 Code: 8480-6 Heart Rate 1: 84 bpm Weight: 172 lbs 06/18/2018 Blood Pressure 1: 128/80 Code: 8480-6 BMI: 31.1 Code: 11585-2 Heart Rate 1: 80 bpm Height: 5'2" SpO2: 97% Weight: 170 lbs 02/28/2018 Blood Pressure 1: 120/78 Code: 8480-6 BMI: 31.6 Code: 21154-9 Heart Rate 1: 66 bpm Height: 5'2" SpO2: 98% Weight: 173 lbs 12/09/2017 Blood Pressure 1: 116/74 Code: 8480-6 BMI: 31.5 Code: 77489-4 Heart Rate 1: 74 bpm Height: 5'2" SpO2: 95% Weight: 172 lbs 10/21/2017 Blood Pressure 1: 136/82 Code: 8480-6 BMI: 30.4 Code: 70968-0 Heart Rate 1: 79 bpm Height: 5'2" SpO2: 97% Weight: 166 lbs 09/26/2017 Blood Pressure 1: 122/80 Code: 8480-6 BMI: 30.4 Code: 85990-5 Heart Rate 1: 63 bpm Height: 5'2" SpO2: 98% Weight: 166 lbs 08/27/2017 Blood Pressure 1: 132/70 Code: 8480-6 BMI: 30.7 Code: 28820-5 Heart Rate 1: 89 bpm Height: 5'2" SpO2: 98% Weight: 168 lbs 05/27/2017 Blood Pressure 1: 132/72 Code: 8480-6 BMI: 28.9 Code: 07343-3 Heart Rate 1: 72 bpm Height: 5'2" SpO2: 98% Weight: 158 lbs 04/24/2017 Blood Pressure 1: 140/76 Code: 8480-6 BMI: 29.3 Code: 83995-7 Heart Rate 1: 77 bpm Height: 5'2" SpO2: 97% Weight: 160 lbs 03/27/2017 Blood Pressure 1: 128/74 Code: 8480-6 BMI: 29.1 Code: 68505-9 Heart Rate 1: 74 bpm Height: 5'2" SpO2: 98% Temperature: 36.8 (C) / 98.3 (F) Weight: 159 lbs 10/25/2016 Blood Pressure 1: 116/74 Code: 8480-6 BMI: 28.9 Code: 17583-4 Heart Rate 1: 68 bpm Height: 5'2" SpO2: 99% Weight: 158 lbs 09/20/2016 Blood Pressure 1: 116/70 Code: 8480-6 Heart Rate 1: 72 bpm Weight: 150 lbs 08/24/2016 Blood Pressure 1: 118/62 Code: 8480-6 BMI: 27.6 Code: 87607-9 Heart Rate 1: 63 bpm Height: 5'2" SpO2: 99% Weight: 151 lbs 06/12/2016 Blood Pressure 1: 122/74 Code: 8480-6 BMI: 26.9 Code: 23266-0 Heart Rate 1: 52 bpm Height: 5'2" [...] Recurrent oral aphthae[ICD10: K12.0] Veda Jama MD, [facility] CPT- 4: 98702 02/23/2019 78482 EST. PATIENT, LEVEL III Diagnosis: Chronic pain syndrome[ICD10: G89.4] [facility] CPT- 4: 97231 12/08/2018 ([id number]) Miscellaneous no charge Diagnosis: Overweight[ICD10: E66.3] [facility] CPT-4: 80277 11/27/2018 27096 EST. PATIENT, LEVEL III Diagnosis: Chronic pain syndrome[ICD10: G89.4] Diagnosis: Menopausal and female climacteric states[ICD10: N95.1] Veda Jama MD, [facility] CPT-4: 67509 10/09/2018 ([id number]) Miscellaneous no charge Diagnosis: Overweight[ICD10: E66.3] Juju Jama MD, [facility] CPT-4: 50477 08/29/2018 41486 EST. PATIENT, LEVEL III Diagnosis: Generalized anxiety disorder[ICD10: F41.1] Diagnosis: Major depressive disorder, single episode, moderate[ICD10: F32.1] Veda Jama MD, [facility] CPT-4: 70103 07/18/2018 ([id number]) Miscellaneous no charge Diagnosis: Overweight[ICD10: E66.3] Juju Jama MD, [facility] CPT-4: 49104 07/16/2018 12633 EST. PATIENT, LEVEL III Diagnosis: Chronic pain syndrome[ICD10: G89.4] Diagnosis: Overweight[ICD10: E66.3] Veda Jama MD, [facility] CPT-4: 76387 06/18/2018 46471 EST. PATIENT, LEVEL IV Diagnosis: Chronic pain syndrome[ICD10: G89.4] Diagnosis: Overweight[ICD10: E66.3] Veda Jama MD, [facility] CPT-4: 22976 02/28/2018 71049 EST. PATIENT, LEVEL III Diagnosis: Chronic pain syndrome[ICD10: G89.4] Diagnosis: Overweight[ICD10: E66.3] Veda Jama MD, [facility] CPT-4: 15925 12/09/2017 99914 EST. PATIENT, LEVEL III Diagnosis: Chronic pain syndrome[ICD10: G89.4] Diagnosis: Overweight[ICD10: E66.3] Veda Jama MD, [facility] CPT-4: 83186 10/21/2017 ([id number]) Miscellaneous no charge Diagnosis: Overweight[ICD10: E66.3] Juju Jama MD, [facility] CPT-4: 20884 09/26/2017 63154 EST. PATIENT, LEVEL III Diagnosis: Chronic pain syndrome[ICD10: G89.4] Diagnosis: Overweight[ICD10: E66.3] Veda Jama MD, [facility] CPT-4: 18197 08/27/2017 42856 EST. PATIENT, LEVEL III Diagnosis: Chronic pain syndrome[ICD10: G89.4] Diagnosis: Generalized anxiety disorder[ICD10: F41.1] Diagnosis: Major depressive disorder, single episode, moderate[ICD10: F32.1] Diagnosis: Cellulitis of right lower limb[ICD10: L03.115] Veda Jama MD, [facility] CPT-4: 06353 05/27/2017 ([id number]) 17280 EST. PATIENT, LEVEL IV Diagnosis: Generalized anxiety disorder[ICD10: F41.1] Diagnosis: Major depressive disorder, single episode, moderate[ICD10: F32.1] Diagnosis: Menopausal and female climacteric states[ICD10: N95.1] Diagnosis: Chronic pain syndrome[ICD10: G89.4] Veda Jama MD, [facility] CPT- 4: 61711 04/24/2017 ([id number]) PREV VISIT EST AGE 18-39 Diagnosis: Encounter for gynecological examination (general) (routine) without abnormal findings[ICD10: Z01.419] Veda Jama MD, [facility] CPT-4: 82569 03/27/2017 ([id number]) 38294 EST. PATIENT, LEVEL III Diagnosis: Overweight[ICD10: E66.3] Veda Jama MD, [facility] CPT-4: 22699 10/25/2016 ([id number]) Miscellaneous no charge Diagnosis: Overweight[ICD10: E66.3] Radha Jama MD, [facility] CPT-4: 71223 09/20/2016 84817 EST. PATIENT, LEVEL IV Diagnosis: Other fatigue[ICD10: R53.83] Diagnosis: Overweight[ICD10: E66.3] Diagnosis: Generalized anxiety disorder[ICD10: F41.1] Veda Jama MD, [facility] CPT-4: 39124 08/24/2016 ([id number]) OFFICE VISIT, NEW - LEVEL 4 Diagnosis: Generalized anxiety disorder[ICD10: F41.1] Diagnosis: Major depressive disorder, single episode, moderate[ICD10: F32.1] Veda Jama MD, [facility] CPT-4: 84867 06/12/2016 Plan of Care Planned Activity Notes Codes Status Date Visit Plan: Princess haas - ongoing - will send RX - pt is to notify clinic if symptoms do not improve, if they worsen, or with any changes, questions, or concerns. Will refer to Dr. Bassett if symptoms persist. 02/23/2019 Appointment: Veda Duenas WPtel: [phone] [facility] (30 min) Complex 02/23/2019 Patient Education: Patient Medication Summary Completed 02/23/2019 Visit Plan: Chronic Pain Syndrome - pt has chronic pain - has been maintained on current medications, has not sought out other medications, only uses PRN pain medications as directed, and understands the consequences of over-medication. 12/08/2018 Appointment: Veda Duenas WPtel: [facility] (30 min) Complex 12/08/2018 Patient Education: [...] concerns. 10/09/2018 Appointment: Veda Duenas WPtel: [phone] [facility] (15 min) Moderate 10/09/2018 Patient Education: [...] this patient. 07/18/2018 Appointment: Veda Duenas WPtel: [facility] (15 min) Moderate 07/18/2018 Patient Education: [...] weight check. 06/18/2018 Appointment: Veda Duenas WPtel: [address] [place], [place] [phone] (15 min) Moderate 06/18/2018 Patient Education: Patient [...] weight check. 02/28/2018 Appointment: Veda Duenas WPtel: [address] [place], [place] [phone] (30 min) Complex 02/28/2018 Patient Education: Patient Medication Summary Completed 02/28/2018 Patient Education: Obesity Completed 02/28/2018 Appointment: Veda Duenas WPtel: [address] [place], [place] [phone] (15 min) Moderate 02/27/2018 Visit Plan: Chronic [...] check. 12/09/2017 [phone] ([facility] Mod[facility] 12/09/2017 Patient Education: Patient [...] weight check. 10/21/2017 [facility] [phone] [facility] ([facility] min) Moderate 10/21/2017 Patient Education: Patient Medication Summary Completed 10/21/2017 Patient Education: Obesity Completed 10/21/2017 Appointment: Nurse Visit 09/26/2017 Patient Education: Patient Medication Summary Completed 09/26/2017 App[facility]ment: [facility] ([facility] 08/30/2017 Visit Plan: Chronic [...] discharge. 05/27/2017 Appointment: Veda Duenas WPtel: [phone] [facility] (30 min) Complex 05/27/2017 Patient Education: Patient [...] RX. 04/24/2017 [phone] [facility] ([facility] Complex 04/24/2017 Patient Education: Patient [...] per pharmacy. 03/27/2017 Appointment: [facility] [facility] 03/27/2017 Patient Education: Patient Medication Summary Completed 03/27/2017 Care Plan: BMI Above normal followup SELF-MGMT EDUC & TRAIN 1 PT Pending 11/07/2016 Visit Plan: Obesity - chronic issue with this patient. The pt has been counseled about diet changes, calorie restriction, and need to exercise. Pt will RTC in one month for weight check. 10/25/2016 Appointment: [facility] ([facility] min) Moderate 10/25/2016 Patient Education: Patient [...] weight check. 08/24/2016 Appointment: Rad[facility] Mcgowan [phone] (30 min) Complex 08/24/2016 Appointment: Radha Mcgowan WPtel: [facility] (30 min) Complex 08/24/2016 Appointment: Radha Mcgowan WPtel: [phone] (30 min) Complex 08/24/2016 Patient Education: [...] this patient. 06/12/2016 Appointment: Radha Mcgowan WPtel: [address] [place], [place] [phone] [place] [address] New Patient 06/12/2016 Patient Education: Patient Medication [...]
--- OUTSIDE RECORDS SUMMARY | 2019-07-01 06:17 | XMS REPORT | CCD ---
Author Author [facility] Address [address] [place] [address] Phone Care Team Providers Care Paleobotanist Name Role Phone PP Unavailable CCM Unavailable Summary Purpose Interface Exchange Insurance Providers Payer name Policy type / Coverage type Covered republican ID Effective Begin Date Effective End Date [employer] [id number] 2018 Unknown Family history Father Diagnosis Age At Onset Diabetes Unknown Hyperlipidemia Unknown Hypertension Unknown Heart Attack Unknown Social History Social History Element Codes Description Effective Dates Marital status Unknown CJ 06/12/2016 Number of children Unknown 3 06/12/[address]: 582174525 Never smoker 06/12/[address]: 795904971 Never drinks alcohol 06/12/2016 Allergies, Adverse Reactions, [...] Start Date Stop Date Status Fill Instructions Lexapro 10 mg tablet RxNorm: 476761 TAKE 1 TABLET BY MOUTH ONCE DAILY 03/30/2019 No Stop Date Active hydrocodone 5 mg-acetaminophen 325 mg tablet RxNorm: 330856 1-1.5 Tablet(s) PO QID as needed 03/23/2019 04/21/2019 Active prednisolone 15 mg/5 mL oral solution RxNorm: 475810 5 Milliliter(s) PO BID 02/23/2019 02/27/2019 Inactive valacyclovir 1 gram tablet RxNorm: 934416 1 Tablet(s) PO TID 02/23/2019 03/01/2019 Inactive hydrocodone 5 mg-acetaminophen 325 mg tablet RxNorm: 165426 1-1.5 Tablet(s) PO QID as needed 02/23/2019 03/22/2019 Inactive hydrocodone 5 mg-acetaminophen 325 mg tablet RxNorm: 189164 1-1.5 Tablet(s) PO QID as needed 01/28/2019 02/26/2019 Inactive hydrocodone 5 mg-acetaminophen 325 mg tablet RxNorm: 948418 1-1.5 Tablet(s) PO QID as needed 01/01/2019 01/27/2019 Inactive cyclobenzaprine 5 mg tablet RxNorm: 705084 TAKE ONE TABLET BY MOUTH THREE TIMES DAILY NEEDED FOR MUSCLE SPASM 12/16/2018 No Stop Date Active phentermine 37.5 mg tablet RxNorm: 699553 1 Tablet(s) PO daily 11/27/2018 No Stop Date Active Lexapro 10 mg tablet RxNorm: 276459 TAKE 1 TABLET BY MOUTH ONCE DAILY 11/26/2018 03/29/2019 Inactive cyclobenzaprine 5 mg tablet RxNorm: 954146 TAKE ONE TABLET BY MOUTH THREE TIMES DAILY NEEDED FOR MUSCLE SPASM 11/12/2018 12/15/2018 Inactive hydrocodone 5 mg-acetaminophen 325 mg tablet RxNorm: 606364 1-1.5 Tablet(s) PO QID as needed 11/06/2018 12/05/2018 Inactive Lyrica 100 mg capsule RxNorm: 786529 1 Capsule(s) PO BID as needed 10/31/2018 01/28/2019 Inactive pravastatin 20 mg tablet RxNorm: 688022 1 Tablet(s) PO QPM 10/28/2018 02/24/2019 Inactive pravastatin 20 mg tablet RxNorm: 216338 1 Tablet(s) PO QPM 10/28/2018 10/27/2018 Inactive EEMT 1.25 mg-2.5 mg tablet RxNorm: 760151 1 Tablet(s) PO daily 10/09/2018 01/06/2019 Inactive norethindrone acetate 1 mg-ethinyl estradiol 20 mcg tablet RxNorm: 1058964 1 Tablet(s) PO daily 10/09/2018 10/03/2019 Active hydrocodone 5 mg-acetaminophen 325 mg tablet RxNorm: 081147 1-1.5 Tablet(s) PO QID as needed 10/09/2018 11/05/2018 Inactive hydrocodone 5 mg-acetaminophen 325 mg tablet RxNorm: 524533 1-1.5 Tablet(s) PO QID as needed 09/11/2018 10/08/2018 Inactive phentermine 37.5 mg tablet RxNorm: 005736 1 Tablet(s) PO daily 08/29/2018 11/26/2018 Inactive cyclobenzaprine 5 mg tablet RxNorm: 347519 TAKE ONE TABLET BY MOUTH THREE TIMES DAILY NEEDED FOR MUSCLE SPASM 08/27/2018 11/11/2018 Inactive hydrocodone 5 mg-acetaminophen 325 mg tablet RxNorm: 816924 1-1.5 Tablet(s) PO QID as needed 08/14/2018 09/10/2018 Inactive Lexapro 10 mg tablet RxNorm: 828069 1 Tablet(s) PO daily 07/18/2018 08/16/2018 Inactive diazepam 10 mg tablet RxNorm: 663364 1 Tablet(s) PO TID as needed anxiety 07/11/2018 07/14/2018 Inactive Zorvolex 35 mg capsule RxNorm: 6062300 1 Capsule(s) PO TID 06/18/2018 No Stop Date Active hydrocodone 5 mg-acetaminophen 325 mg tablet RxNorm: 120060 1-1.5 Tablet(s) PO QID as needed 06/18/2018 07/17/2018 Inactive cyclobenzaprine 5 mg tablet RxNorm: 851385 TAKE ONE TABLET BY MOUTH THREE TIMES DAILY NEEDED FOR MUSCLE SPASM 06/04/2018 08/26/2018 Inactive hydrocodone 5 mg-acetaminophen 325 mg tablet RxNorm: 095734 1-1.5 Tablet(s) PO QID as needed 05/26/2018 06/17/2018 Inactive cyclobenzaprine 5 mg tablet RxNorm: 265389 TAKE ONE TABLET BY MOUTH THREE TIMES DAILY NEEDED FOR MUSCLE SPASM 05/07/2018 06/03/2018 Inactive ibuprofen 800 mg tablet RxNorm: 370762 TAKE ONE TABLET BY MOUTH THREE TIMES DAILY NEEDED 04/28/2018 No Stop Date Active hydrocodone 5 mg-acetaminophen 325 mg tablet RxNorm: 402751 1-1.5 Tablet(s) PO QID as needed 04/28/2018 05/25/2018 Inactive diazepam 10 mg tablet RxNorm: 362537 1 Tablet(s) PO TID as needed anxiety 04/22/2018 06/19/2018 Inactive hydrocodone 5 mg-acetaminophen 325 mg tablet RxNorm: 913795 1-1.5 Tablet(s) PO QID as needed 03/25/2018 04/23/2018 Inactive cyclobenzaprine 5 mg tablet RxNorm: 343547 TAKE ONE TABLET BY MOUTH THREE TIMES DAILY NEEDED FOR MUSCLE SPASM 03/17/2018 05/06/2018 Inactive hydrocodone 5 mg-acetaminophen 325 mg tablet RxNorm: 534262 1-1.5 Tablet(s) PO QID as needed 03/02/2018 03/24/2018 Inactive phentermine 37.5 mg tablet RxNorm: 456326 1 Tablet(s) PO daily 03/02/2018 08/28/2018 Inactive hydrocodone 5 mg-acetaminophen 325 mg tablet RxNorm: 913853 1-1.5 Tablet(s) PO QID as needed 02/03/2018 03/01/2018 Inactive diazepam 10 mg tablet RxNorm: 282153 1 Tablet(s) PO TID as needed anxiety 01/01/2018 02/28/2018 Inactive hydrocodone 5 mg-acetaminophen 325 mg tablet RxNorm: 139329 1-1.5 Tablet(s) PO QID as needed 12/09/2017 01/07/2018 Inactive ibuprofen 800 mg tablet RxNorm: 106222 1 Tablet(s) PO TID as needed 12/09/2017 01/07/2018 Inactive Lyrica 100 mg capsule RxNorm: 678401 1 Capsule(s) PO BID as needed 12/09/2017 03/07/2018 Inactive cyclobenzaprine 5 mg tablet RxNorm: 696136 TAKE ONE TABLET BY MOUTH THREE TIMES DAILY NEEDED FOR MUSCLE SPASM 12/03/2017 03/16/2018 Inactive hydrocodone 5 mg-acetaminophen 325 mg tablet RxNorm: 161059 1-1.5 Tablet(s) PO QID as needed 10/21/2017 11/19/2017 Inactive hydrocodone 7.5 mg-acetaminophen 325 mg tablet RxNorm: 273155 1 Tablet(s) PO QID as needed 09/26/2017 10/20/2017 Inactive phentermine 37.5 mg tablet RxNorm: 520240 1 Tablet(s) PO daily 09/26/2017 10/01/2017 Inactive Lyrica 100 mg capsule RxNorm: 340578 1 Capsule(s) PO BID as needed 09/12/2017 12/08/2017 Inactive hydrocodone 7.5 mg-acetaminophen 325 mg tablet RxNorm: 672155 1 Tablet(s) PO QID as needed 08/27/2017 09/23/2017 Inactive Belviq XR 20 mg tablet,extended release RxNorm: 4251155 1 Tablet(s) PO daily 08/27/2017 09/23/2017 Inactive cyclobenzaprine 5 mg tablet RxNorm: 705739 1 Tablet(s) PO TID as needed muscle spasms 08/19/2017 08/23/2017 Inactive hydrocodone 7.5 mg-acetaminophen 325 mg tablet RxNorm: 667564 1 Tablet(s) PO QID as needed 08/02/2017 08/26/2017 Inactive hydrocodone 7.5 mg-acetaminophen 325 mg tablet RxNorm: 251831 1 Tablet(s) PO TID as needed 08/02/2017 08/01/2017 Inactive diazepam 10 mg tablet RxNorm: 645156 1 Tablet(s) PO TID as needed anxiety 07/24/2017 02/02/2018 Inactive hydrocodone 7.5 mg-acetaminophen 325 mg tablet RxNorm: 586138 1 Tablet(s) PO TID as needed 07/11/2017 08/01/2017 Inactive Lyrica 100 mg capsule RxNorm: 733660 1 Capsule(s) PO BID as needed 06/24/2017 09/20/2017 Inactive hydrocodone 5 mg-acetaminophen 325 mg tablet RxNorm: 033566 1 Tablet(s) PO TID 06/24/2017 07/30/2017 Inactive prednisone 10 mg tablet RxNorm: 903606 1 Tablet(s) PO daily 06/18/2017 06/17/2017 Inactive 6-5-4-3-2-1 then stop prednisone 10 mg tablet RxNorm: 668216 1 Tablet(s) PO daily 06/18/2017 08/25/2017 Inactive 6-5-4-3-2-1 then stop Bactrim DS 800 mg-160 mg tablet RxNorm: 524528 1 Tablet(s) PO BID 06/11/2017 06/14/2017 Inactive Bactrim DS 800 mg-160 mg tablet RxNorm: 329600 1 Tablet(s) PO BID 06/03/2017 06/10/2017 Inactive mupirocin 2 % topical ointment RxNorm: 699175 1 Application TOP BID 06/03/2017 08/25/2017 Inactive Lyrica 100 mg capsule RxNorm: 604474 1 Capsule(s) PO BID as needed 05/27/2017 06/23/2017 Inactive Keflex 500 mg capsule RxNorm: 775883 1 Capsule(s) PO TID 05/27/2017 06/02/2017 Inactive Lexapro 10 mg tablet RxNorm: 650687 1 Tablet(s) PO daily 05/27/2017 08/25/2017 Inactive hydrocodone 5 mg-acetaminophen 325 mg tablet RxNorm: 642180 1 Tablet(s) PO TID 05/27/2017 06/23/2017 Inactive hydrocodone 7.5 mg-acetaminophen 325 mg tablet RxNorm: 442394 1 Tablet(s) PO TID as needed 05/13/2017 05/25/2017 Inactive hydrocodone 7.5 mg-acetaminophen 325 mg tablet RxNorm: 556300 1 Tablet(s) PO TID as needed 05/13/2017 05/12/2017 Inactive cyclobenzaprine 5 mg tablet RxNorm: 250683 TAKE ONE TABLET BY MOUTH THREE TIMES DAILY NEEDED FOR MUSCLE SPASM 05/01/2017 05/05/2017 Inactive hydrocodone 5 mg-acetaminophen 325 mg tablet RxNorm: 093634 1 Tablet(s) PO TID as needed 04/24/2017 05/12/2017 Inactive cyclobenzaprine 5 mg tablet RxNorm: 426690 1 Tablet(s) PO TID as needed muscle spasms 04/24/2017 04/28/2017 Inactive diazepam 10 mg tablet RxNorm: 318902 1 Tablet(s) PO TID as needed anxiety 02/22/2017 04/19/2017 Inactive norethindrone acetate 1 mg-ethinyl estradiol 20 mcg tablet RxNorm: 5430257 1 Tablet(s) PO daily 12/18/2016 07/15/2017 Inactive EEMT 1.25 mg-2.5 mg tablet RxNorm: 277670 1 Tablet(s) PO daily 12/06/2016 03/05/2017 Inactive EEMT 1.25 mg-2.5 mg tablet RxNorm: 582854 1 Tablet(s) PO daily 12/06/2016 12/05/2016 Inactive Lexapro 10 mg tablet RxNorm: 762932 1 Tablet(s) PO daily 12/06/2016 05/04/2017 Inactive diazepam 10 mg tablet RxNorm: 260065 1 Tablet(s) PO TID 11/09/2016 12/07/2016 Inactive phentermine 37.5 mg tablet RxNorm: 742098 1 Tablet(s) PO daily 10/25/2016 08/23/2017 Inactive EEMT 1.25 mg-2.5 mg tablet RxNorm: 263828 1 Tablet(s) PO daily 10/25/2016 12/05/2016 Inactive phentermine 37.5 mg tablet RxNorm: 497674 1 Tablet(s) PO daily 09/20/2016 10/24/2016 Inactive Lexapro 10 mg tablet RxNorm: 842847 1 Tablet(s) PO daily 07/10/2016 12/05/2016 Inactive Lexapro 10 mg tablet RxNorm: 400678 1 Tablet(s) PO daily 06/12/2016 07/09/2016 Inactive norethindrone acetate 1 mg-ethinyl estradiol 20 mcg tablet RxNorm: 3883480 1 Tablet(s) PO daily 06/12/2016 12/17/2016 Inactive hydrocodone 10 mg-acetaminophen 325 mg tablet RxNorm: 070778 1 Tablet(s) PO TID No Start Date 05/12/2017 Inactive phentermine 37.5 mg tablet RxNorm: 097221 1 Tablet(s) PO daily No Start Date 09/19/2016 Inactive norethindrone acetate 1 mg-ethinyl estradiol 20 mcg tablet RxNorm: 2728147 1 Tablet(s) PO daily No Start Date 06/11/2016 Inactive EEMT 1.25 mg-2.5 mg tablet RxNorm: 138925 1 Tablet(s) PO daily No Start Date [...] 1: 142/72 Code: 8480-6 BMI: 30.9 Code: 86354-7 Heart Rate 1: 82 bpm Height: 5'2" SpO2: 98% Weight: 169 lbs 12/08/2018 Blood Pressure 1: 130/74 Code: 8480-6 BMI: 30.7 Code: 47397-4 Heart Rate 1: 82 bpm Height: 5'2" SpO2: 97% Weight: 168 lbs 11/27/2018 Blood Pressure 1: 130/74 Code: 8480-6 Weight: 168 lbs 10/09/2018 Blood Pressure 1: 128/74 Code: 8480-6 BMI: 31.1 Code: 11951-3 Heart Rate 1: 81 bpm Height: 5'2" SpO2: 97% Weight: 170 lbs 08/29/2018 Blood Pressure 1: 120/70 Code: 8480-6 BMI: 31.1 Code: 25533-5 Heart Rate 1: 65 bpm Height: 5'2" Weight: 170 lbs 07/18/2018 Blood Pressure 1: 126/88 Code: 8480-6 Heart Rate 1: 78 bpm Height: SpO2: 97% Weight: 07/16/2018 Blood Pressure 1: 130/78 Code: 8480-6 Heart Rate 1: 84 bpm Weight: 172 lbs 06/18/2018 Blood Pressure 1: 128/80 Code: 8480-6 BMI: 31.1 Code: 43548-6 Heart Rate 1: 80 bpm Height: 5'2" SpO2: 97% Weight: 170 lbs 02/28/2018 Blood Pressure 1: 120/78 Code: 8480-6 BMI: 31.6 Code: 06389-5 Heart Rate 1: 66 bpm Height: 5'2" SpO2: 98% Weight: 173 lbs 12/09/2017 Blood Pressure 1: 116/74 Code: 8480-6 BMI: 31.5 Code: 76226-7 Heart Rate 1: 74 bpm Height: 5'2" SpO2: 95% Weight: 172 lbs 10/21/2017 Blood Pressure 1: 136/82 Code: 8480-6 BMI: 30.4 Code: 24817-0 Heart Rate 1: 79 bpm Height: 5'2" SpO2: 97% Weight: 166 lbs 09/26/2017 Blood Pressure 1: 122/80 Code: 8480-6 BMI: 30.4 Code: 57364-4 Heart Rate 1: 63 bpm Height: 5'2" SpO2: 98% Weight: 166 lbs 08/27/2017 Blood Pressure 1: 132/70 Code: 8480-6 BMI: 30.7 Code: 82384-1 Heart Rate 1: 89 bpm Height: 5'2" SpO2: 98% Weight: 168 lbs 05/27/2017 Blood Pressure 1: 132/72 Code: 8480-6 BMI: 28.9 Code: 84584-2 Heart Rate 1: 72 bpm Height: 5'2" SpO2: 98% Weight: 158 lbs 04/24/2017 Blood Pressure 1: 140/76 Code: 8480-6 BMI: 29.3 Code: 99277-1 Heart Rate 1: 77 bpm Height: 5'2" SpO2: 97% Weight: 160 lbs 03/27/2017 Blood Pressure 1: 128/74 Code: 8480-6 BMI: 29.1 Code: 46831-9 Heart Rate 1: 74 bpm Height: 5'2" SpO2: 98% Temperature: 36.8 (C) / 98.3 (F) Weight: 159 lbs 10/25/2016 Blood Pressure 1: 116/74 Code: 8480-6 BMI: 28.9 Code: 14386-2 Heart Rate 1: 68 bpm Height: 5'2" SpO2: 99% Weight: 158 lbs 09/20/2016 Blood Pressure 1: 116/70 Code: 8480-6 Heart Rate 1: 72 bpm Weight: 150 lbs 08/24/2016 Blood Pressure 1: 118/62 Code: 8480-6 BMI: 27.6 Code: 64173-4 Heart Rate 1: 63 bpm Height: 5'2" SpO2: 99% Weight: 151 lbs 06/12/2016 Blood Pressure 1: 122/74 Code: 8480-6 BMI: 26.9 Code: 89494-7 Heart Rate 1: 52 bpm Height: 5'2" [...] data Encounters Encounter Performer Location Codes Date 99171 EST. PATIENT, LEVEL III Diagnosis: Recurrent oral aphthae[ICD10: K12.0] Veda Jama MD, [facility] CPT- 4: 80673 02/23/2019 99554 EST. PATIENT, LEVEL III Diagnosis: Chronic pain syndrome[ICD10: G89.4] Veda Jama MD, [facility] CPT- 4: 81954 12/08/2018 ([id number]) Miscellaneous no charge Diagnosis: Overweight[ICD10: E66.3] Juju Jama MD, [facility] CPT-4: 82499 11/27/2018 72406 EST. PATIENT, LEVEL III Diagnosis: Chronic pain syndrome[ICD10: G89.4] Diagnosis: Menopausal and female climacteric states[ICD10: N95.1] Veda Jama MD, [facility] CPT-4: 72673 10/09/2018 ([id number]) Miscellaneous no charge Diagnosis: Overweight[ICD10: E66.3] Juju Jama MD, [facility] CPT-4: 33847 08/29/2018 92527 EST. PATIENT, LEVEL III Diagnosis: Generalized anxiety disorder[ICD10: F41.1] Diagnosis: Major depressive disorder, single episode, moderate[ICD10: F32.1] Veda Jama MD, [facility] CPT-4: 13202 07/18/2018 ([id number]) Miscellaneous no charge Diagnosis: Overweight[ICD10: E66.3] Juju Jama MD, [facility] CPT-4: 14840 07/16/2018 62466 EST. PATIENT, LEVEL III Diagnosis: Chronic pain syndrome[ICD10: G89.4] Diagnosis: Overweight[ICD10: E66.3] Veda Jama MD, [facility] CPT-4: 07002 06/18/2018 71298 EST. PATIENT, LEVEL IV Diagnosis: Chronic pain syndrome[ICD10: G89.4] Diagnosis: Overweight[ICD10: E66.3] Veda Jama MD, [facility] CPT-4: 22698 02/28/2018 35238 EST. PATIENT, LEVEL III Diagnosis: Chronic pain syndrome[ICD10: G89.4] Diagnosis: Overweight[ICD10: E66.3] Veda Jama MD, [facility] CPT-4: 10103 12/09/2017 96391 EST. PATIENT, LEVEL III Diagnosis: Chronic pain syndrome[ICD10: G89.4] Diagnosis: Overweight[ICD10: E66.3] Veda Jama MD, [facility] CPT-4: 49896 10/21/2017 ([id number]) Miscellaneous no charge Diagnosis: Overweight[ICD10: E66.3] Juju Jama MD, [facility] CPT-4: 34839 09/26/2017 70207 EST. PATIENT, LEVEL III Diagnosis: Chronic pain syndrome[ICD10: G89.4] Diagnosis: Overweight[ICD10: E66.3] Veda Jama MD, [facility] CPT-4: 16004 08/27/2017 62123 EST. PATIENT, LEVEL III Diagnosis: Chronic pain syndrome[ICD10: G89.4] Diagnosis: Generalized anxiety disorder[ICD10: F41.1] Diagnosis: Major depressive disorder, single episode, moderate[ICD10: F32.1] Diagnosis: Cellulitis of right lower limb[ICD10: L03.115] Veda Jama MD, [facility] CPT-4: 30420 05/27/2017 ([id number]) 86530 EST. PATIENT, LEVEL IV Diagnosis: Generalized anxiety disorder[ICD10: F41.1] Diagnosis: Major depressive disorder, single episode, moderate[ICD10: F32.1] Diagnosis: Menopausal and female climacteric states[ICD10: N95.1] Diagnosis: Chronic pain syndrome[ICD10: G89.4] Veda Jama MD, [facility] CPT- 4: 43800 04/24/2017 ([id number]) PREV VISIT EST AGE 18-39 Diagnosis: Encounter for gynecological examination (general) (routine) without abnormal findings[ICD10: Z01.419] [facility] CPT-4: 23041 03/27/2017 ([id number]) 66277 EST. PATIENT, LEVEL III Diagnosis: Overweight[ICD10: E66.3] [facility] CPT-4: 16681 10/25/2016 ([id number]) Miscellaneous no charge Diagnosis: Overweight[ICD10: E66.3] Radha Jama MD, [facility] CPT-4: 26705 09/20/2016 35756 EST. PATIENT, LEVEL IV Diagnosis: Other fatigue[ICD10: R53.83] Diagnosis: Overweight[ICD10: E66.3] Diagnosis: Generalized anxiety disorder[ICD10: F41.1] [facility] CPT-4: 95066 08/24/2016 ([id number]) OFFICE VISIT, NEW - LEVEL 4 Diagnosis: Generalized anxiety disorder[ICD10: F41.1] Diagnosis: Major depressive disorder, single episode, moderate[ICD10: F32.1] [facility] CPT-4: 55412 06/12/2016 Plan of Care Planned Activity Notes Codes Status Date Visit Plan: Princess haas - ongoing - will send RX - pt is to notify clinic if symptoms do not improve, if they worsen, or with any changes, questions, or concerns. Will refer to Dr. Bassett if symptoms persist. 02/23/2019 Appointment: Veda Duenas WPtel: [address] [place], [place] [id number] (30 min) Complex 02/23/2019 Patient Education: Patient Medication Summary Completed 02/23/2019 Visit Plan: Chronic Pain Syndrome - pt has chronic pain - has been maintained on current medications, has not sought out other medications, only uses PRN pain medications as directed, and understands the consequences of over-medication. 12/08/2018 [facility] [phone] [facility] ([facility] 12/08/2018 Patient Education: Patient [...] concerns. 10/09/2018 Appointment: Veda Duenas WPtel: [phone] [facility] (15 min) Moderate 10/09/2018 Patient Education: [...] patient. 07/18/2018 App[facility]ment[facility] [phone] [facility] (15 min) Moderate 07/18/2018 Patient Education: Patient [...] Veda Duenas WPtel: [facility] (15 min) Moderate 06/18/2018 Patient Education: [...] Duenas WPtel: [facility] [place] (30 min) Complex 02/28/2018 Patient Education: Patient Medication Summary Completed 02/28/2018 Patient Education: Obesity Completed 02/28/2018 Appointment: Veda Duenas WPtel: [facility] (15 min) Moderate 02/27/2018 Visit Plan: [...] Duenas WPtel: [facility] [place] (15 min) Moderate 12/09/2017 Patient Education: [...] weight check. 10/21/2017 App[facility]ment: [facility] [phone] [facility] (15 min) Moderate 10/21/2017 Patient Education: Patient Medication Summary Completed 10/21/2017 Patient Education: Obesity Completed 10/21/2017 Appointment: Nurse Visit 09/26/2017 Patient Education: Patient Medication Summary Completed 09/26/2017 [facility] [phone] [facility] (30 min) Complex 08/30/2017 Visit Plan: [...] discharge. 05/27/2017 App[facility]ment: [facility] [phone] [facility] ([facility] min) Complex 05/27/2017 Patient Education: Patient [...] RX. 04/24/2017 App[facility]: [facility] [phone] [facility] ([facility] min) Complex 04/24/2017 Patient Education: [...] [facility] [facility] 03/27/2017 Patient Education: Patient Medication Summary Completed 03/27/2017 Care Plan: BMI Above normal followup SELF-MGMT EDUC & TRAIN 1 PT Pending 11/07/2016 Visit Plan: Obesity - chronic issue with this patient. The pt has been counseled about diet changes, calorie restriction, and need to exercise. Pt will RTC in one month for weight check. 10/25/2016 Appointment: Veda Duenas WPtel: [facility] (15 min) Moderate 10/25/2016 Patient Education: [...] Radha Mcgowan [facility]Ptel[facility] (30 min) Complex 08/24/2016 Appointment: Radha Mcgowan WPtel: [phone] [phone] (30 min) Complex 08/24/2016 Appointment: Radha Mcgowan WPtel: [phone] (30 min) Complex 08/24/2016 Patient Education: Patient [...] Radha Mcgowan WPtel: [phone] New Patient 06/12/2016 Patient Education: Patient Medication Summary Completed 06/12/2016 Patient Education: Obesity Completed 06/12/2016 Instructions Comment . Chronic Depression and anxiety - the [...] symptoms, worsening redness, warmth, discharge. . Chronic Pain Syndrome - pt has chronic pain - has been maintained on current medications, has not sought out other medications, only uses PRN pain medications as directed, and understands the consequences of over-medication. . Chronic Pain Syndrome - pt has [...] in one month for weight check. . Well Adult Female - exam completed. Pap and breast exam completed. Pt will be called with results of her testing. She was advised to continue with yearly annual exams. Safe sex practices discussed during office visit today. Call if any abnormal gynecologic issues during the next year, otherwise, RTC yearly or prn. . Princess haas - ongoing - will send RX - pt is to notify clinic if symptoms do not improve, if they worsen, or with any changes, questions, or concerns. Will refer to Dr. Bassett if symptoms persist. . Anxiety - the patient has uncontrolled [...] been appropriately prescribed for this patient. . Obesity - chronic issue with this [...] in one month for weight check. . Well Adult Female - exam completed. [...]
--- OUTSIDE RECORDS SUMMARY | 2019-07-01 06:18 | XMS REPORT | CCD ---
Author Author [facility] Address [address] [place] [address] Phone Care Team Providers Care Theatrical Scenic Designer Name Role Phone PP Unavailable CCM Unavailable Summary Purpose Interface Exchange Insurance Providers Payer name Policy type / Coverage type Covered alliance party ID Effective Begin Date Effective End Date Blue Cross Blue [facility] Blue Cross/[id number] Unknown Family history Father Diagnosis Age At Onset Diabetes Unknown Hyperlipidemia Unknown Hypertension Unknown Heart Attack Unknown Social History Social History Element Codes Description Effective Dates Marital status Unknown CJ 06/12/2016 Number of children Unknown 3 06/12/[address]: 952756390 Never smoker 06/12/[address]: 023228104 Never drinks alcohol 06/12/2016 Allergies, Adverse Reactions, Alerts Allergies, Adverse Reactions, Alerts data not found Past Medical History Illness Codes Condition Status Onset Date Resolved Date Cellulitis of right lower limb ICD-9: 682.7 ICD-10: L03.115 Active 05/27/2017 Unknown Chronic pain syndrome ICD- 9: 338.4 ICD-10: G89.4 Active 04/24/2017 Unknown Generalized anxiety disorder ICD-9: 300.02 ICD-10: F41.1 Active 08/23/2016 Unknown Major depressive disorder, single episode, moderate ICD-9: 296.22 ICD-10: F32.1 Active 06/11/2016 Unknown Menopausal and female climacteric states ICD-9: 627.2 ICD-10: N95.1 Active 04/24/2017 Unknown Encounter for gynecological examination (general) (routine) without abnormal findings ICD-9: V72.31 ICD-10: Z01.419 Active 03/27/2017 Unknown Overweight ICD-9: 278.02 ICD-10: E66.3 Active 10/24/2016 Unknown Other fatigue ICD-9: 780.79 ICD-10: R53.83 Active 08/23/2016 Unknown Problems Condition Codes Effective Dates Condition Status Cellulitis of right lower limb ICD-9: 682.7 ICD-10: L03.115 05/27/2017 Active Chronic pain syndrome ICD- 9: 338.4 ICD-10: G89.4 04/24/2017 Active Generalized anxiety disorder ICD-9: 300.02 ICD-10: F41.1 08/23/2016 Active Major depressive disorder, single episode, moderate ICD-9: 296.22 ICD-10: F32.1 06/11/2016 Active Menopausal and female climacteric states ICD-9: 627.2 ICD-10: N95.1 04/24/2017 Active Encounter for gynecological examination (general) (routine) without abnormal findings ICD-9: V72.31 ICD-10: Z01.419 03/27/2017 Active Overweight ICD-9: 278.02 ICD-10: E66.3 10/24/2016 Active Other fatigue ICD-9: 780.79 ICD-10: R53.83 08/23/2016 Active Medications Medication Codes Instructions Start Date Stop Date Status Fill Instructions Bactrim DS 800 mg-160 mg tablet RxNorm: 667973 1 Tablet(s) PO BID 06/03/2017 06/12/2017 Active mupirocin 2 % topical ointment RxNorm: 106793 1 Application TOP BID 06/03/2017 No Stop Date Active Lyrica 100 mg capsule RxNorm: 248690 1 Capsule(s) PO BID as needed 05/27/2017 06/25/2017 Active Lexapro 10 mg tablet RxNorm: 586744 1 Tablet(s) PO daily 05/27/2017 11/22/2017 Active hydrocodone 5 mg-acetaminophen 325 mg tablet RxNorm: 671930 1 Tablet(s) PO TID 05/27/2017 No Stop Date Active Keflex 500 mg capsule RxNorm: 154868 1 Capsule(s) PO TID 05/27/2017 06/02/2017 Inactive hydrocodone 7.5 mg-acetaminophen 325 mg tablet RxNorm: 432306 1 Tablet(s) PO TID as needed 05/13/2017 05/25/2017 Inactive hydrocodone 7.5 mg-acetaminophen 325 mg tablet RxNorm: 575042 1 Tablet(s) PO TID as needed 05/13/2017 05/12/2017 Inactive cyclobenzaprine 5 mg tablet RxNorm: 052888 TAKE ONE TABLET BY MOUTH THREE TIMES DAILY NEEDED FOR MUSCLE SPASM 05/01/2017 05/05/2017 Inactive hydrocodone 5 mg-acetaminophen 325 mg tablet RxNorm: 888691 1 Tablet(s) PO TID as needed 04/24/2017 05/12/2017 Inactive cyclobenzaprine 5 mg tablet RxNorm: 170279 1 Tablet(s) PO TID as needed muscle spasms 04/24/2017 04/28/2017 Inactive diazepam 10 mg tablet RxNorm: 774090 1 Tablet(s) PO TID as needed anxiety 02/22/2017 04/22/2017 Inactive norethindrone acetate 1 mg-ethinyl estradiol 20 mcg tablet RxNorm: 2720061 1 Tablet(s) PO daily 12/18/2016 07/15/2017 Active EEMT 1.25 mg-2.5 mg tablet RxNorm: 930139 1 Tablet(s) PO daily 12/06/2016 03/05/2017 Inactive EEMT 1.25 mg-2.5 mg tablet RxNorm: 737179 1 Tablet(s) PO daily 12/06/2016 12/05/2016 Inactive Lexapro 10 mg tablet RxNorm: 113151 1 Tablet(s) PO daily 12/06/2016 05/04/2017 Inactive diazepam 10 mg tablet RxNorm: 786220 1 Tablet(s) PO TID 11/09/2016 12/07/2016 Inactive phentermine 37.5 mg tablet RxNorm: 200246 1 Tablet(s) PO daily 10/25/2016 No Stop Date Active EEMT 1.25 mg-2.5 mg tablet RxNorm: 345039 1 Tablet(s) PO daily 10/25/2016 12/05/2016 Inactive phentermine 37.5 mg tablet RxNorm: 016565 1 Tablet(s) PO daily 09/20/2016 10/24/2016 Inactive Lexapro 10 mg tablet RxNorm: 508356 1 Tablet(s) PO daily 07/10/2016 12/05/2016 Inactive Lexapro 10 mg tablet RxNorm: 053705 1 Tablet(s) PO daily 06/12/2016 07/09/2016 Inactive norethindrone acetate 1 mg-ethinyl estradiol 20 mcg tablet RxNorm: 9925667 1 Tablet(s) PO daily 06/12/2016 12/17/2016 Inactive hydrocodone 10 mg-acetaminophen 325 mg tablet RxNorm: 266026 1 Tablet(s) PO TID No Start Date 05/12/2017 Inactive phentermine 37.5 mg tablet RxNorm: 509696 1 Tablet(s) PO daily No Start Date 09/19/2016 Inactive norethindrone acetate 1 mg-ethinyl estradiol 20 mcg tablet RxNorm: 3635537 1 Tablet(s) PO daily No Start Date 06/11/2016 Inactive EEMT 1.25 mg-2.5 mg tablet RxNorm: 469879 1 Tablet(s) PO daily No Start Date 10/24/2016 Inactive Medication Administered No Medication Administered data Immunizations No Immunization data Assessments Condition Codes Effective Dates Cellulitis of right lower limb ICD-10: L03.115 ICD-9: 682.7 06/03/2017 Major depressive disorder, single episode, moderate ICD-10: F32.1 ICD-9: 296.22 05/27/2017 Generalized anxiety disorder ICD-10: F41.1 ICD-9: 300.02 05/27/2017 Chronic pain syndrome ICD-10: G89.4 ICD-9: 338.4 05/27/2017 Menopausal and female climacteric states ICD-10: N95.1 ICD-9: 627.2 04/24/2017 Encounter for gynecological examination (general) (routine) without abnormal findings ICD-10: Z01.419 ICD-9: V72.31 03/27/2017 Overweight ICD-10: E66.3 ICD-9: 278.02 10/25/2016 Other fatigue ICD-10: R53.83 ICD-9: 780.79 08/24/2016 Reason For Visit Reason For Visit Effective Dates Notes medication follow up 05/27/2017 medication follow up 04/24/2017 well woman exam (18-39 years) 03/27/2017 medication follow up 10/25/2016 weight gain/obesity 08/24/2016 depression 06/12/2016 Results No Results data Review of Systems System Result Effective Dates Constitutional No recent illness 05/27/2017 Constitutional No [...] Result Effective Dates Notes Full Exam - General 1994 Constitutional general [...] No Procedures data Vital Signs Date Vital 05/27/2017 Blood Pressure 1: 132/72 Code: 8480-6 BMI: 28.9 Code: 39966-8 Heart Rate 1: 72 bpm Height: 5'2" SpO2: 98% Weight: 158 lbs 04/24/2017 Blood Pressure 1: 140/76 Code: 8480-6 BMI: 29.3 Code: 70619-3 Heart Rate 1: 77 bpm Height: 5'2" SpO2: 97% Weight: 160 lbs 03/27/2017 Blood Pressure 1: 128/74 Code: 8480-6 BMI: 29.1 Code: 56644-8 Heart Rate 1: 74 bpm Height: 5'2" SpO2: 98% Temperature: 36.8 (C) / 98.3 (F) Weight: 159 lbs 10/25/2016 Blood Pressure 1: 116/74 Code: 8480-6 BMI: 28.9 Code: 26977-3 Heart Rate 1: 68 bpm Height: 5'2" SpO2: 99% Weight: 158 lbs 09/20/2016 Blood Pressure 1: 116/70 Code: 8480-6 Heart Rate 1: 72 bpm Weight: 150 lbs 08/24/2016 Blood Pressure 1: 118/62 Code: 8480-6 BMI: 27.6 Code: 16955-8 Heart Rate 1: 63 bpm Height: 5'2" SpO2: 99% Weight: 151 lbs 06/12/2016 Blood Pressure 1: 122/74 Code: 8480-6 BMI: 26.9 Code: 93009-1 Heart Rate 1: 52 bpm Height: 5'2" SpO2: 97% Weight: 147 lbs Functional Status No Functional Status data History of Present Illness Symptom Name Status Result Effective Date Notes medication follow up Location oral intake 05/27/2017 [...] data Encounters Encounter Performer Location Codes Date 75161 EST. PATIENT, LEVEL III Diagnosis: Chronic pain syndrome[ICD10: G89.4] Diagnosis: Generalized anxiety disorder[ICD10: F41.1] Diagnosis: Major depressive disorder, single episode, moderate[ICD10: F32.1] Diagnosis: Cellulitis of right lower limb[ICD10: L03.115] Veda Jama MD, [facility] CPT-4: 17127 05/27/2017 ([id number]) 36240 EST. PATIENT, LEVEL IV Diagnosis: Generalized anxiety disorder[ICD10: F41.1] Diagnosis: Major depressive disorder, single episode, moderate[ICD10: F32.1] Diagnosis: Menopausal and female climacteric states[ICD10: N95.1] Diagnosis: Chronic pain syndrome[ICD10: G89.4] [facility] CPT- 4: 84571 04/24/2017 ([id number]) PREV VISIT EST AGE 18-39 Diagnosis: Encounter for gynecological examination (general) (routine) without abnormal findings[ICD10: Z01.419] [facility] CPT-4: 62776 03/27/2017 ([id number]) 72836 EST. PATIENT, LEVEL III Diagnosis: Overweight[ICD10: E66.3] [facility] CPT-4: 54245 10/25/2016 ([id number]) Miscellaneous no charge Diagnosis: Overweight[ICD10: E66.3] [facility] CPT-4: 08074 09/20/2016 14251 EST. PATIENT, LEVEL IV Diagnosis: Other fatigue[ICD10: R53.83] Diagnosis: Overweight[ICD10: E66.3] Diagnosis: Generalized anxiety disorder[ICD10: F41.1] [facility] CPT-4: 18618 08/24/2016 ([id number]) OFFICE VISIT, NEW - LEVEL 4 Diagnosis: Generalized anxiety disorder[ICD10: F41.1] Diagnosis: Major depressive disorder, single episode, moderate[ICD10: F32.1] [facility] CPT-4: 24232 06/12/2016 Plan of Care Planned Activity Notes Codes Status Date Patient Education: Patient Medication Summary Completed 06/03/2017 Care Plan: Antwan EVERETT Pending 06/03/2017 Visit Plan: Chronic Depression and anxiety - the pt has symptoms of chronic anxiety and depression that have been fairly well controlled since the last office visit. The pt has expected periods of exacerbation with abatement of the symptoms with change in situational exposure. No change in current medications.Chronic Pain Syndrome - pt has chronic pain - has been maintained on current medications, has not sought out other medications, only uses PRN pain medications as directed, and understands the consequences of over- medication.Cellulitis - continue with oral antibiotics as previously directed, r eturn to clinic as previously directed, call for acute change in symptoms, worsening redness, warmth, discharge. 05/27/2017 Appointment: Veda Duenas WPtel: [phone] [facility] (30 min) Complex 05/27/2017 Patient Education: Patient Medication Summary Completed 05/27/2017 Visit Plan: Chronic Depression and anxiety - the pt has symptoms of chronic anxiety and depression that have been fairly well controlled since the last office visit. The pt has expected periods of exacerbation with abatement of the symptoms with change in situational exposure. No change in current medications.Chronic Pain Syndrome - pt has chronic pain - has been maintained on current medications, has not sought out other medications, only uses PRN pain medications as directed, and understands the consequences of over- medication.Menopausal symptoms - pt is getting RX cream [...] in situational exposure. No change in current medications.Chronic Pain Syndrome - pt has chronic pain - has been maintained on current medications, has not sought out other medications, only uses PRN pain medications as directed, and understands the consequences of over- medication.Menopausal symptoms - pt is getting RX cream - pt is to notify clinic if symptoms are not controlled with new RX. 04/24/2017 Appointment: Veda Duenas WPtel: [phone] [facility] (30 min) Complex 04/24/2017 Patient Education: [...] the next year, otherwise, RTC yearly or prn.Pt has been on hormone therapy since her total hysterectomy due to endometriosis. Pt has had issues with hot flashes, and more recently decreased libido - her insurance is no longer covering her hormone therapy - will send orders for hormone compounding per pharmacy. 03/27/2017 Appointment: Veda Duenas WPtel: [phone] [facility] Well Woman 03/27/2017 Patient Education: Patient Medication Summary Completed 03/27/2017 Care Plan: BMI Above normal followup SELF-MGMT EDUC & TRAIN 1 PT Pending 11/07/2016 Visit Plan: Obesity - chronic issue with this patient. The pt has been counseled about diet changes, calorie restriction, and need to exercise. Pt will RTC in one month for weight check. 10/25/2016 [phone] ([facility] Moderate 10/25/2016 Patient Education: [...] in situational exposure. No change in current medications.Overweight - chronic issue with this patient. The pt has been counseled about diet changes, calorie restriction, and need to exercise. Pt will RTC in one month for weight check. 08/24/2016 Appointment: Radha Mcgowan WPtel: [address] [place] [address] (30 min) Complex 08/24/2016 Appointment: Radha Mcgowan WPtel: [facility] [place] [address] (30 min) Complex 08/24/2016 Appointment: Radha Mcgowan WPtel: [facility] [place] [address] (30 min) Complex 08/24/2016 Patient Education: Patient Medication Summary Completed 08/24/2016 Patient Education: Obesity Completed 08/24/2016 Visit Plan: Anxiety - the patient has uncontrolled anxiety and will benefit from an SSRI on a daily basis to attempt control of the symptoms of anxiety (tachycardia, overwhelming sensations, stress, insomnia, etc). Pt is aware of the risks and benefits of treatment with the above medications.Depression - uncontrolled - Pt has been counseled about the diagnosis of depression, the potential causes, and risks associated with the diagnosis. The pt denies suicidal ideation, or plans. The patient has been counseled about treatment options, and understands the risks associated with treatment of depression, as well as the risks associated with NOT treating the depression.I believe the pt will benefit from medical intervention and an antidepressant has been appropriately prescribed for this patient. 06/12/2016 Appointment: Radha Mcgowan WPtel: [address] [place] [address] New Patient 06/12/2016 Patient Education: Patient Medication [...] are not controlled with new RX. . Obesity - chronic issue with this [...] been appropriately prescribed for this patient. . Well Adult Female - exam completed. [...]
--- OUTSIDE RECORDS SUMMARY | 2019-07-01 06:18 | XMS REPORT | CCD ---
Author Author [facility] Address [address] [place] [address] Phone Care Team Providers Care Mounter Hand Name Role Phone PP Unavailable CCM Unavailable Summary Purpose Interface Exchange Insurance Providers Payer name Policy type / Coverage type Covered libertarian ID Effective Begin Date Effective End Date Blue Cross Blue [facility] Blue Cross/[id number] Unknown Family history Father Diagnosis Age At Onset Diabetes Unknown Hyperlipidemia Unknown Hypertension Unknown Heart Attack Unknown Social History Social History Element Codes Description Effective Dates Marital status Unknown CJ 06/12/2016 Number of children Unknown 3 06/12/[address]: 522526902 Never smoker 06/12/[address]: 031329405 Never drinks alcohol 06/12/2016 Allergies, Adverse Reactions, [...] Bactrim DS 800 mg-160 mg tablet RxNorm: 189105 1 Tablet(s) PO BID 06/11/2017 06/14/2017 Active mupirocin 2 % topical ointment RxNorm: 965805 1 Application TOP BID 06/03/2017 No Stop Date Active Bactrim DS 800 mg-160 mg tablet RxNorm: 496262 1 Tablet(s) PO BID 06/03/2017 06/10/2017 Inactive Lyrica 100 mg capsule RxNorm: 632812 1 Capsule(s) PO BID as needed 05/27/2017 06/25/2017 Active Lexapro 10 mg tablet RxNorm: 016845 1 Tablet(s) PO daily 05/27/2017 11/22/2017 Active hydrocodone 5 mg-acetaminophen 325 mg tablet RxNorm: 833670 1 Tablet(s) PO TID 05/27/2017 No Stop Date Active Keflex 500 mg capsule RxNorm: 247604 1 Capsule(s) PO TID 05/27/2017 06/02/2017 Inactive hydrocodone 7.5 mg-acetaminophen 325 mg tablet RxNorm: 275164 1 Tablet(s) PO TID as needed 05/13/2017 05/25/2017 Inactive hydrocodone 7.5 mg-acetaminophen 325 mg tablet RxNorm: 545769 1 Tablet(s) PO TID as needed 05/13/2017 05/12/2017 Inactive cyclobenzaprine 5 mg tablet RxNorm: 964244 TAKE ONE TABLET BY MOUTH THREE TIMES DAILY NEEDED FOR MUSCLE SPASM 05/01/2017 05/05/2017 Inactive hydrocodone 5 mg-acetaminophen 325 mg tablet RxNorm: 220968 1 Tablet(s) PO TID as needed 04/24/2017 05/12/2017 Inactive cyclobenzaprine 5 mg tablet RxNorm: 593377 1 Tablet(s) PO TID as needed muscle spasms 04/24/2017 04/28/2017 Inactive diazepam 10 mg tablet RxNorm: 005419 1 Tablet(s) PO TID as needed anxiety 02/22/2017 04/22/2017 Inactive norethindrone acetate 1 mg-ethinyl estradiol 20 mcg tablet RxNorm: 3742028 1 Tablet(s) PO daily 12/18/2016 07/15/2017 Active EEMT 1.25 mg-2.5 mg tablet RxNorm: 758286 1 Tablet(s) PO daily 12/06/2016 03/05/2017 Inactive EEMT 1.25 mg-2.5 mg tablet RxNorm: 332493 1 Tablet(s) PO daily 12/06/2016 12/05/2016 Inactive Lexapro 10 mg tablet RxNorm: 512159 1 Tablet(s) PO daily 12/06/2016 05/04/2017 Inactive diazepam 10 mg tablet RxNorm: 324610 1 Tablet(s) PO TID 11/09/2016 12/07/2016 Inactive phentermine 37.5 mg tablet RxNorm: 852436 1 Tablet(s) PO daily 10/25/2016 No Stop Date Active EEMT 1.25 mg-2.5 mg tablet RxNorm: 866693 1 Tablet(s) PO daily 10/25/2016 12/05/2016 Inactive phentermine 37.5 mg tablet RxNorm: 233987 1 Tablet(s) PO daily 09/20/2016 10/24/2016 Inactive Lexapro 10 mg tablet RxNorm: 277629 1 Tablet(s) PO daily 07/10/2016 12/05/2016 Inactive Lexapro 10 mg tablet RxNorm: 773082 1 Tablet(s) PO daily 06/12/2016 07/09/2016 Inactive norethindrone acetate 1 mg-ethinyl estradiol 20 mcg tablet RxNorm: 0279066 1 Tablet(s) PO daily 06/12/2016 12/17/2016 Inactive hydrocodone 10 mg-acetaminophen 325 mg tablet RxNorm: 924689 1 Tablet(s) PO TID No Start Date 05/12/2017 Inactive phentermine 37.5 mg tablet RxNorm: 540346 1 Tablet(s) PO daily No Start Date 09/19/2016 Inactive norethindrone acetate 1 mg-ethinyl estradiol 20 mcg tablet RxNorm: 7700197 1 Tablet(s) PO daily No Start Date 06/11/2016 Inactive EEMT 1.25 mg-2.5 mg tablet RxNorm: 454895 1 Tablet(s) PO daily No Start Date 10/24/2016 Inactive Medication Administered No Medication Administered data Immunizations No Immunization data Assessments Condition Codes Effective Dates Cellulitis of right lower limb ICD-10: L03.115 ICD-9: 682.7 06/03/2017 Chronic pain syndrome ICD-10: G89.4 ICD-9: 338.4 05/27/2017 Generalized anxiety disorder ICD-10: F41.1 ICD-9: 300.02 05/27/2017 Major depressive disorder, single episode, moderate ICD-10: F32.1 ICD-9: 296.22 05/27/2017 Menopausal and female climacteric states ICD-10: [...] 1: 132/72 Code: 8480-6 BMI: 28.9 Code: 03763-4 Heart Rate 1: 72 bpm Height: 5'2" SpO2: 98% Weight: 158 lbs 04/24/2017 Blood Pressure 1: 140/76 Code: 8480-6 BMI: 29.3 Code: 20363-6 Heart Rate 1: 77 bpm Height: 5'2" SpO2: 97% Weight: 160 lbs 03/27/2017 Blood Pressure 1: 128/74 Code: 8480-6 BMI: 29.1 Code: 90602-8 Heart Rate 1: 74 bpm Height: 5'2" SpO2: 98% Temperature: 36.8 (C) / 98.3 (F) Weight: 159 lbs 10/25/2016 Blood Pressure 1: 116/74 Code: 8480-6 BMI: 28.9 Code: 61327-6 Heart Rate 1: 68 bpm Height: 5'2" SpO2: 99% Weight: 158 lbs 09/20/2016 Blood Pressure 1: 116/70 Code: 8480-6 Heart Rate 1: 72 bpm Weight: 150 lbs 08/24/2016 Blood Pressure 1: 118/62 Code: 8480-6 BMI: 27.6 Code: 03714-1 Heart Rate 1: 63 bpm Height: 5'2" SpO2: 99% Weight: 151 lbs 06/12/2016 Blood Pressure 1: 122/74 Code: 8480-6 BMI: 26.9 Code: 48797-5 Heart Rate 1: 52 bpm Height: 5'2" [...] Codes Date EST. PATIENT, LEVEL III Diagnosis: Chronic pain syndrome[ICD10: G89.4] Diagnosis: Generalized anxiety disorder[ICD10: F41.1] Diagnosis: Major depressive disorder, single episode, moderate[ICD10: F32.1] Diagnosis: Cellulitis of right lower limb[ICD10: L03.115] Veda Jama MD, [facility] CPT-4: 35590 05/27/2017 ([id number]) 18988 EST. PATIENT, LEVEL IV Diagnosis: Generalized anxiety disorder[ICD10: F41.1] Diagnosis: Major depressive disorder, single episode, moderate[ICD10: F32.1] Diagnosis: Menopausal and female climacteric states[ICD10: N95.1] Diagnosis: Chronic pain syndrome[ICD10: G89.4] Veda Jama MD, [facility] CPT- 4: 28623 04/24/2017 ([id number]) PREV VISIT EST AGE 18-39 Diagnosis: Encounter for gynecological examination (general) (routine) without abnormal findings[ICD10: Z01.419] Veda Jama MD, [facility] CPT-4: 35512 03/27/2017 ([id number]) 61834 EST. PATIENT, LEVEL III Diagnosis: Overweight[ICD10: E66.3] Veda Jama MD, [facility] CPT-4: 59136 10/25/2016 ([id number]) Miscellaneous no charge Diagnosis: Overweight[ICD10: E66.3] Radha Jama MD, [facility] CPT-4: 23638 09/20/2016 51050 EST. PATIENT, LEVEL IV Diagnosis: Other fatigue[ICD10: R53.83] Diagnosis: Overweight[ICD10: E66.3] Diagnosis: Generalized anxiety disorder[ICD10: F41.1] Veda Jama MD, [facility] CPT-4: 46131 08/24/2016 ([id number]) OFFICE VISIT, NEW - LEVEL 4 Diagnosis: Generalized anxiety disorder[ICD10: F41.1] Diagnosis: Major depressive disorder, single episode, moderate[ICD10: F32.1] Veda Jama MD, [facility] CPT-4: 73586 06/12/2016 Plan of Care Planned Activity Notes Codes Status Date Appointment: Nurse Visit 06/10/2017 Appointment: Nurse Visit [...] discharge. 05/27/2017 [phone] [facility] ([facility] 05/27/2017 Patient [...] 04/24/2017 App[phone] [facility] ([facility]) Complex 04/24/2017 Patient Education: Patient [...] pharmacy. 03/27/2017 App[facility]ment[phone] [facility] [facility] 03/27/2017 Patient Education: Patient Medication Summary Completed 03/27/2017 Care Plan: BMI Above normal followup SELF-MGMT EDUC & TRAIN 1 PT Pending 11/07/2016 Visit Plan: Obesity - chronic issue with this patient. The pt has been counseled about diet changes, calorie restriction, and need to exercise. Pt will RTC in one month for weight check. 10/25/2016 Appointment[phone] [facility] ([facility]) Moderate 10/25/2016 Patient Education: Patient [...] weight check. 08/24/2016 Appointment: Radha Mcgowan WPtel: [facility] [place] [address] (30 min) Complex 08/24/2016 Appointment: Radha Mcgowan WPtel: [facility] [address] (30 min) Complex 08/24/2016 Appointment: Radha Mcgowan WPtel: [phone] (30 min) Complex 08/24/2016 Patient Education: [...] this patient. 06/12/2016 Appointment: Radha Mcgowan WPtel: [facility] [place] [address] New Patient 06/12/2016 Patient Education: Patient Medication [...]
--- OUTSIDE RECORDS SUMMARY | 2019-07-01 06:19 | XMS REPORT | CCD ---
Author Author Veda [facility]enas [facility], [facility] Address [address] [place] [address] Phone Care Team Providers Care Epidemiology Internship Name Role Phone PP Unavailable CCM Unavailable Summary Purpose Interface Exchange Insurance Providers Payer name Policy type / Coverage type Covered libertarian ID Effective Begin Date Effective End Date Blue Cross Blue [facility] Blue Cross/[facility]ly [id number] Unknown Family history Father Diagnosis Age At Onset Diabetes Unknown Hyperlipidemia Unknown Hypertension Unknown Heart Attack Unknown Social History Social History Element Codes Description Effective Dates Marital status Unknown CJ 06/12/2016 Number of children Unknown 3 06/12/[address]: 574648550 Never smoker 06/12/[address]: 210844248 Never drinks alcohol 06/12/2016 Allergies, Adverse Reactions, [...] Bactrim DS 800 mg-160 mg tablet RxNorm: 238494 1 Tablet(s) PO BID 06/03/2017 06/12/2017 Active mupirocin 2 % topical ointment RxNorm: 837814 1 Application TOP BID 06/03/2017 No Stop Date Active Lyrica 100 mg capsule RxNorm: 941903 1 Capsule(s) PO BID as needed 05/27/2017 06/25/2017 Active Lexapro 10 mg tablet RxNorm: 967564 1 Tablet(s) PO daily 05/27/2017 11/22/2017 Active hydrocodone 5 mg-acetaminophen 325 mg tablet RxNorm: 655663 1 Tablet(s) PO TID 05/27/2017 No Stop Date Active Keflex 500 mg capsule RxNorm: 724562 1 Capsule(s) PO TID 05/27/2017 06/02/2017 Inactive hydrocodone 7.5 mg-acetaminophen 325 mg tablet RxNorm: 372100 1 Tablet(s) PO TID as needed 05/13/2017 05/25/2017 Inactive hydrocodone 7.5 mg-acetaminophen 325 mg tablet RxNorm: 462336 1 Tablet(s) PO TID as needed 05/13/2017 05/12/2017 Inactive cyclobenzaprine 5 mg tablet RxNorm: 256366 TAKE ONE TABLET BY MOUTH THREE TIMES DAILY NEEDED FOR MUSCLE SPASM 05/01/2017 05/05/2017 Inactive hydrocodone 5 mg-acetaminophen 325 mg tablet RxNorm: 129977 1 Tablet(s) PO TID as needed 04/24/2017 05/12/2017 Inactive cyclobenzaprine 5 mg tablet RxNorm: 895829 1 Tablet(s) PO TID as needed muscle spasms 04/24/2017 04/28/2017 Inactive diazepam 10 mg tablet RxNorm: 020482 1 Tablet(s) PO TID as needed anxiety 02/22/2017 04/22/2017 Inactive norethindrone acetate 1 mg-ethinyl estradiol 20 mcg tablet RxNorm: 8723930 1 Tablet(s) PO daily 12/18/2016 07/15/2017 Active EEMT 1.25 mg-2.5 mg tablet RxNorm: 296311 1 Tablet(s) PO daily 12/06/2016 03/05/2017 Inactive EEMT 1.25 mg-2.5 mg tablet RxNorm: 889677 1 Tablet(s) PO daily 12/06/2016 12/05/2016 Inactive Lexapro 10 mg tablet RxNorm: 932488 1 Tablet(s) PO daily 12/06/2016 05/04/2017 Inactive diazepam 10 mg tablet RxNorm: 062934 1 Tablet(s) PO TID 11/09/2016 12/07/2016 Inactive phentermine 37.5 mg tablet RxNorm: 465826 1 Tablet(s) PO daily 10/25/2016 No Stop Date Active EEMT 1.25 mg-2.5 mg tablet RxNorm: 244889 1 Tablet(s) PO daily 10/25/2016 12/05/2016 Inactive phentermine 37.5 mg tablet RxNorm: 900451 1 Tablet(s) PO daily 09/20/2016 10/24/2016 Inactive Lexapro 10 mg tablet RxNorm: 232863 1 Tablet(s) PO daily 07/10/2016 12/05/2016 Inactive Lexapro 10 mg tablet RxNorm: 919736 1 Tablet(s) PO daily 06/12/2016 07/09/2016 Inactive norethindrone acetate 1 mg-ethinyl estradiol 20 mcg tablet RxNorm: 5313842 1 Tablet(s) PO daily 06/12/2016 12/17/2016 Inactive hydrocodone 10 mg-acetaminophen 325 mg tablet RxNorm: 384424 1 Tablet(s) PO TID No Start Date 05/12/2017 Inactive phentermine 37.5 mg tablet RxNorm: 831104 1 Tablet(s) PO daily No Start Date 09/19/2016 Inactive norethindrone acetate 1 mg-ethinyl estradiol 20 mcg tablet RxNorm: 8893563 1 Tablet(s) PO daily No Start Date 06/11/2016 Inactive EEMT 1.25 mg-2.5 mg tablet RxNorm: 090499 1 Tablet(s) PO daily No Start Date [...] 1: 132/72 Code: 8480-6 BMI: 28.9 Code: 95730-9 Heart Rate 1: 72 bpm Height: 5'2" SpO2: 98% Weight: 158 lbs 04/24/2017 Blood Pressure 1: 140/76 Code: 8480-6 BMI: 29.3 Code: 00158-0 Heart Rate 1: 77 bpm Height: 5'2" SpO2: 97% Weight: 160 lbs 03/27/2017 Blood Pressure 1: 128/74 Code: 8480-6 BMI: 29.1 Code: 17665-1 Heart Rate 1: 74 bpm Height: 5'2" SpO2: 98% Temperature: 36.8 (C) / 98.3 (F) Weight: 159 lbs 10/25/2016 Blood Pressure 1: 116/74 Code: 8480-6 BMI: 28.9 Code: 30206-1 Heart Rate 1: 68 bpm Height: 5'2" SpO2: 99% Weight: 158 lbs 09/20/2016 Blood Pressure 1: 116/70 Code: 8480-6 Heart Rate 1: 72 bpm Weight: 150 lbs 08/24/2016 Blood Pressure 1: 118/62 Code: 8480-6 BMI: 27.6 Code: 46912-1 Heart Rate 1: 63 bpm Height: 5'2" SpO2: 99% Weight: 151 lbs 06/12/2016 Blood Pressure 1: 122/74 Code: 8480-6 BMI: 26.9 Code: 40762-5 Heart Rate 1: 52 bpm Height: 5'2" [...] data Encounters Encounter Performer Location Codes Date 22382 EST. PATIENT, LEVEL III Diagnosis: Chronic pain syndrome[ICD10: G89.4] Diagnosis: Generalized anxiety disorder[ICD10: F41.1] Diagnosis: Major depressive disorder, single episode, moderate[ICD10: F32.1] Diagnosis: Cellulitis of right lower limb[ICD10: L03.115] Veda Jama MD, [facility] CPT-4: 44649 05/27/2017 ([id number]) 87613 EST. PATIENT, LEVEL IV Diagnosis: Generalized anxiety disorder[ICD10: F41.1] Diagnosis: Major depressive disorder, single episode, moderate[ICD10: F32.1] Diagnosis: Menopausal and female climacteric states[ICD10: N95.1] Diagnosis: Chronic pain syndrome[ICD10: G89.4] [facility] CPT- 4: 96033 04/24/2017 ([id number]) PREV VISIT EST AGE 18-39 Diagnosis: Encounter for gynecological examination (general) (routine) without abnormal findings[ICD10: Z01.419] [facility] CPT-4: 01396 03/27/2017 ([id number]) 44263 EST. PATIENT, LEVEL III Diagnosis: Overweight[ICD10: E66.3] [facility]eda [facility] CPT-4: 48143 10/25/2016 ([id number]) Miscellaneous no charge Diagnosis: Overweight[ICD10: E66.3] Radha Jama [facility] CPT-4: 29433 09/20/2016 15500 EST. PATIENT, LEVEL IV Diagnosis: Other fatigue[ICD10: R53.83] Diagnosis: Overweight[ICD10: E66.3] Diagnosis: Generalized anxiety disorder[ICD10: F41.1] [facility] CPT-4: 77511 08/24/2016 ([id number]) OFFICE VISIT, NEW - LEVEL 4 Diagnosis: Generalized anxiety disorder[ICD10: F41.1] Diagnosis: Major depressive disorder, single episode, moderate[ICD10: F32.1] [facility]eda [facility] CPT-4: 06341 06/12/2016 Plan of Care Planned Activity Notes [...] discharge. 05/27/2017 Appointment: Veda Duenas WPtel: [phone] [facility] (30 min) Complex 05/27/2017 Patient Education: Patient [...] RX. 04/24/2017 Appointment: Veda Duenas WPtel: [phone] [facility] (30 min) Complex 04/24/2017 Patient Education: Patient [...] pharmacy. 03/27/2017 Appointment: Veda Duenas WPtel: [phone] [facility] [facility] 03/27/2017 Patient Education: Patient Medication Summary Completed 03/27/2017 Care Plan: BMI Above normal followup SELF-MGMT EDUC & TRAIN 1 PT Pending 11/07/2016 Visit Plan: Obesity - chronic issue with this patient. The pt has been counseled about diet changes, calorie restriction, and need to exercise. Pt will RTC in one month for weight check. 10/25/2016 [facility] (15 min[facility] Moderate 10/25/2016 Patient Education: [...] weight check. 08/24/2016 Appointment: Radha Mcgowan WPtel: [address] [place] [address] (30 min) Complex 08/24/2016 Appointment: Radha Mcgowan WPtel: [facility]5 [facility] [place] [address] (30 min) Complex 08/24/2016 Appointment: Radha Mcgowan WPtel: [facility]5 [facility] [place] [address] (30 min) Complex 08/24/2016 Patient Education: Patient [...] this patient. 06/12/2016 Appointment: Radha Mcgowan WPtel: [address] [place] [address] New Patient 06/12/2016 Patient Education: Patient Medication [...]
[2019-07-01] MEDS: LACTATED RINGERS 1,000 ML IV PRN ×2 (06:20→10:08)
--- OUTSIDE RECORDS SUMMARY | 2019-07-01 06:20 | XMS REPORT | CCD ---
Author Author Veda Duenas [facility], [facility] Address [address] [place] [address] Phone Care Team Providers Care Senior Project Engineer Name Role Phone PP Unavailable CCM Unavailable Summary Purpose Interface Exchange Insurance Providers Payer name Policy type / Coverage type Covered libertarian ID Effective Begin Date Effective End Date Blue Cross Blue [facility] Blue Cross/[facility]ly [id number] Unknown Family history Father Diagnosis Age At Onset Diabetes Unknown Hyperlipidemia Unknown Hypertension Unknown Heart Attack Unknown Social History Social History Element Codes Description Effective Dates Marital status Unknown CJ 06/12/2016 Number of children Unknown 3 06/12/[address]: 305231568 Never smoker 06/12/[address]: 880135282 Never drinks alcohol 06/12/2016 Allergies, Adverse Reactions, [...] Fill Instructions Lyrica 100 mg capsule RxNorm: 643760 1 Capsule(s) PO BID as needed 05/27/2017 06/25/2017 Active Keflex 500 mg capsule RxNorm: 880556 1 Capsule(s) PO TID 05/27/2017 06/02/2017 Active Lexapro 10 mg tablet RxNorm: 846788 1 Tablet(s) PO daily 05/27/2017 11/22/2017 Active hydrocodone 5 mg-acetaminophen 325 mg tablet RxNorm: 370360 1 Tablet(s) PO TID 05/27/2017 No Stop Date Active hydrocodone 7.5 mg-acetaminophen 325 mg tablet RxNorm: 112372 1 Tablet(s) PO TID as needed 05/13/2017 05/25/2017 Inactive hydrocodone 7.5 mg-acetaminophen 325 mg tablet RxNorm: 386690 1 Tablet(s) PO TID as needed 05/13/2017 05/12/2017 Inactive cyclobenzaprine 5 mg tablet RxNorm: 126781 TAKE ONE TABLET BY MOUTH THREE TIMES DAILY NEEDED FOR MUSCLE SPASM 05/01/2017 05/05/2017 Inactive hydrocodone 5 mg-acetaminophen 325 mg tablet RxNorm: 009502 1 Tablet(s) PO TID as needed 04/24/2017 05/12/2017 Inactive cyclobenzaprine 5 mg tablet RxNorm: 079183 1 Tablet(s) PO TID as needed muscle spasms 04/24/2017 04/28/2017 Inactive diazepam 10 mg tablet RxNorm: 883081 1 Tablet(s) PO TID as needed anxiety 02/22/2017 04/22/2017 Inactive norethindrone acetate 1 mg-ethinyl estradiol 20 mcg tablet RxNorm: 0028199 1 Tablet(s) PO daily 12/18/2016 07/15/2017 Active EEMT 1.25 mg-2.5 mg tablet RxNorm: 067908 1 Tablet(s) PO daily 12/06/2016 03/05/2017 Inactive EEMT 1.25 mg-2.5 mg tablet RxNorm: 450247 1 Tablet(s) PO daily 12/06/2016 12/05/2016 Inactive Lexapro 10 mg tablet RxNorm: 692458 1 Tablet(s) PO daily 12/06/2016 05/04/2017 Inactive diazepam 10 mg tablet RxNorm: 176569 1 Tablet(s) PO TID 11/09/2016 12/07/2016 Inactive phentermine 37.5 mg tablet RxNorm: 935470 1 Tablet(s) PO daily 10/25/2016 No Stop Date Active EEMT 1.25 mg-2.5 mg tablet RxNorm: 716942 1 Tablet(s) PO daily 10/25/2016 12/05/2016 Inactive phentermine 37.5 mg tablet RxNorm: 282135 1 Tablet(s) PO daily 09/20/2016 10/24/2016 Inactive Lexapro 10 mg tablet RxNorm: 261832 1 Tablet(s) PO daily 07/10/2016 12/05/2016 Inactive Lexapro 10 mg tablet RxNorm: 065036 1 Tablet(s) PO daily 06/12/2016 07/09/2016 Inactive norethindrone acetate 1 mg-ethinyl estradiol 20 mcg tablet RxNorm: 1620230 1 Tablet(s) PO daily 06/12/2016 12/17/2016 Inactive hydrocodone 10 mg-acetaminophen 325 mg tablet RxNorm: 553787 1 Tablet(s) PO TID No Start Date 05/12/2017 Inactive phentermine 37.5 mg tablet RxNorm: 450784 1 Tablet(s) PO daily No Start Date 09/19/2016 Inactive norethindrone acetate 1 mg-ethinyl estradiol 20 mcg tablet RxNorm: 0350647 1 Tablet(s) PO daily No Start Date 06/11/2016 Inactive EEMT 1.25 mg-2.5 mg tablet RxNorm: 179952 1 Tablet(s) PO daily No Start Date 10/24/2016 Inactive Medication Administered No Medication Administered data Immunizations No Immunization data Assessments Condition Codes Effective Dates Chronic pain syndrome ICD-10: G89.4 ICD-9: 338.4 05/27/2017 Cellulitis of right lower limb ICD-10: L03.115 ICD-9: 682.7 05/27/2017 Generalized anxiety disorder ICD-10: F41.1 ICD-9: [...] 1: 132/72 Code: 8480-6 BMI: 28.9 Code: 51918-4 Heart Rate 1: 72 bpm Height: 5'2" SpO2: 98% Weight: 158 lbs 04/24/2017 Blood Pressure 1: 140/76 Code: 8480-6 BMI: 29.3 Code: 25333-5 Heart Rate 1: 77 bpm Height: 5'2" SpO2: 97% Weight: 160 lbs 03/27/2017 Blood Pressure 1: 128/74 Code: 8480-6 BMI: 29.1 Code: 17604-8 Heart Rate 1: 74 bpm Height: 5'2" SpO2: 98% Temperature: 36.8 (C) / 98.3 (F) Weight: 159 lbs 10/25/2016 Blood Pressure 1: 116/74 Code: 8480-6 BMI: 28.9 Code: 15756-6 Heart Rate 1: 68 bpm Height: 5'2" SpO2: 99% Weight: 158 lbs 09/20/2016 Blood Pressure 1: 116/70 Code: 8480-6 Heart Rate 1: 72 bpm Weight: 150 lbs 08/24/2016 Blood Pressure 1: 118/62 Code: 8480-6 BMI: 27.6 Code: 80160-4 Heart Rate 1: 63 bpm Height: 5'2" SpO2: 99% Weight: 151 lbs 06/12/2016 Blood Pressure 1: 122/74 Code: 8480-6 BMI: 26.9 Code: 79262-0 Heart Rate 1: 52 bpm Height: 5'2" [...] data Encounters Encounter Performer Location Codes Date 26179 EST. PATIENT, LEVEL III Diagnosis: Chronic pain syndrome[ICD10: G89.4] Diagnosis: Generalized anxiety disorder[ICD10: F41.1] Diagnosis: Major depressive disorder, single episode, moderate[ICD10: F32.1] Diagnosis: Cellulitis of right lower limb[ICD10: L03.115] [facility]eda [facility] CPT-4: 45937 05/27/2017 ([id number]) 68490 EST. PATIENT, LEVEL IV Diagnosis: Generalized anxiety disorder[ICD10: F41.1] Diagnosis: Major depressive disorder, single episode, moderate[ICD10: F32.1] Diagnosis: Menopausal and female climacteric states[ICD10: N95.1] Diagnosis: Chronic pain syndrome[ICD10: G89.4] Veda Jama MD, [facility] CPT- 4: 01825 04/24/2017 ([id number]) PREV VISIT EST AGE 18-39 Diagnosis: Encounter for gynecological examination (general) (routine) without abnormal findings[ICD10: Z01.419] [facility] CPT-4: 51882 03/27/2017 ([id number]) 16146 EST. PATIENT, LEVEL III Diagnosis: Overweight[ICD10: E66.3] Veda [facility] CPT-4: 92474 10/25/2016 ([id number]) Miscellaneous no charge Diagnosis: Overweight[ICD10: E66.3] Radha Jama MD, [facility] CPT-4: 79662 09/20/2016 14452 EST. PATIENT, LEVEL IV Diagnosis: Other fatigue[ICD10: R53.83] Diagnosis: Overweight[ICD10: E66.3] Diagnosis: Generalized anxiety disorder[ICD10: F41.1] [facility]eda [facility] CPT-4: 58226 08/24/2016 ([id number]) OFFICE VISIT, NEW - LEVEL 4 Diagnosis: Generalized anxiety disorder[ICD10: F41.1] Diagnosis: Major depressive disorder, single episode, moderate[ICD10: F32.1] [facility]eda [facility] CPT-4: 35218 06/12/2016 Plan of Care Planned Activity Notes Codes Status Date Visit Plan: Chronic Depression and anxiety - [...] in symptoms, worsening redness, warmth, discharge. 05/27/2017 Patient Education: Patient Medication Summary Completed [...] new RX. 04/24/2017 Appointment: Veda Duenas WPtel: [address] [place], [place] [address] (30 min) [facility] 04/24/2017 Patient Education: Patient Medication Summary Completed [...] pharmacy. 03/27/2017 Appointment: Veda Duenas WPtel: [phone] [facility] [facility] 03/27/2017 Patient Education: Patient Medication Summary Completed 03/27/2017 Care Plan: BMI Above normal followup SELF-MGMT EDUC & TRAIN 1 PT Pending 11/07/2016 Visit Plan: Obesity - chronic issue with this patient. The pt has been counseled about diet changes, calorie restriction, and need to exercise. Pt will RTC in one month for weight check. 10/25/2016 Appointment: Veda Duenas WPtel: Formerly named [facility]3 [facility] (15 min) Moderate 10/25/2016 Patient Education: Patient [...] weight check. 08/24/2016 Appointment: Radha Mcgowan WPtel: [phone] (30 min) Complex 08/24/2016 Appointment: Radha Mcgowan WPtel: Formerly named [facility]5 [phone] (30 min) Complex 08/24/2016 Appointment: Radha Mcgowan WPtel: [address] [place], [place] [phone] (30 min) Complex 08/24/2016 Patient Education: Patient [...] this patient. 06/12/2016 Appointment: Radha Mcgowan WPtel: Formerly named [facility]5 [phone] New Patient 06/12/2016 Patient Education: Patient Medication [...]
--- OUTSIDE RECORDS SUMMARY | 2019-07-01 06:20 | XMS REPORT | CCD ---
Author Author Veda Duenas [facility], [facility] Address [address] [place] [address] Phone Care Team Providers Care Oem Sales Manager Name Role Phone PP Unavailable CCM Unavailable Summary Purpose Interface Exchange Insurance Providers Payer name Policy type / Coverage type Covered republican ID Effective Begin Date Effective End Date Blue Cross Blue [facility] Blue Cross/[id number] Unknown Family history Father Diagnosis Age At Onset Diabetes Unknown Hyperlipidemia Unknown Hypertension Unknown Heart Attack Unknown Social History Social History Element Codes Description Effective Dates Marital status Unknown CJ 06/12/2016 Number of children Unknown 3 06/12/[address]: 480074158 Never smoker 06/12/[address]: 692147816 Never drinks alcohol 06/12/2016 Allergies, Adverse Reactions, [...] Fill Instructions Lyrica 100 mg capsule RxNorm: 502304 1 Capsule(s) PO BID as needed 05/27/2017 06/25/2017 Active Keflex 500 mg capsule RxNorm: 433713 1 Capsule(s) PO TID 05/27/2017 06/02/2017 Active Lexapro 10 mg tablet RxNorm: 232991 1 Tablet(s) PO daily 05/27/2017 11/22/2017 Active hydrocodone 5 mg-acetaminophen 325 mg tablet RxNorm: 618025 1 Tablet(s) PO TID 05/27/2017 No Stop Date Active hydrocodone 7.5 mg-acetaminophen 325 mg tablet RxNorm: 149450 1 Tablet(s) PO TID as needed 05/13/2017 05/25/2017 Inactive hydrocodone 7.5 mg-acetaminophen 325 mg tablet RxNorm: 784433 1 Tablet(s) PO TID as needed 05/13/2017 05/12/2017 Inactive cyclobenzaprine 5 mg tablet RxNorm: 941069 TAKE ONE TABLET BY MOUTH THREE TIMES DAILY NEEDED FOR MUSCLE SPASM 05/01/2017 05/05/2017 Inactive hydrocodone 5 mg-acetaminophen 325 mg tablet RxNorm: 114713 1 Tablet(s) PO TID as needed 04/24/2017 05/12/2017 Inactive cyclobenzaprine 5 mg tablet RxNorm: 076735 1 Tablet(s) PO TID as needed muscle spasms 04/24/2017 04/28/2017 Inactive diazepam 10 mg tablet RxNorm: 012781 1 Tablet(s) PO TID as needed anxiety 02/22/2017 04/22/2017 Inactive norethindrone acetate 1 mg-ethinyl estradiol 20 mcg tablet RxNorm: 1164672 1 Tablet(s) PO daily 12/18/2016 07/15/2017 Active EEMT 1.25 mg-2.5 mg tablet RxNorm: 131002 1 Tablet(s) PO daily 12/06/2016 03/05/2017 Inactive EEMT 1.25 mg-2.5 mg tablet RxNorm: 609912 1 Tablet(s) PO daily 12/06/2016 12/05/2016 Inactive Lexapro 10 mg tablet RxNorm: 498987 1 Tablet(s) PO daily 12/06/2016 05/04/2017 Inactive diazepam 10 mg tablet RxNorm: 490484 1 Tablet(s) PO TID 11/09/2016 12/07/2016 Inactive phentermine 37.5 mg tablet RxNorm: 794854 1 Tablet(s) PO daily 10/25/2016 No Stop Date Active EEMT 1.25 mg-2.5 mg tablet RxNorm: 184840 1 Tablet(s) PO daily 10/25/2016 12/05/2016 Inactive phentermine 37.5 mg tablet RxNorm: 409580 1 Tablet(s) PO daily 09/20/2016 10/24/2016 Inactive Lexapro 10 mg tablet RxNorm: 142280 1 Tablet(s) PO daily 07/10/2016 12/05/2016 Inactive Lexapro 10 mg tablet RxNorm: 960429 1 Tablet(s) PO daily 06/12/2016 07/09/2016 Inactive norethindrone acetate 1 mg-ethinyl estradiol 20 mcg tablet RxNorm: 5984744 1 Tablet(s) PO daily 06/12/2016 12/17/2016 Inactive hydrocodone 10 mg-acetaminophen 325 mg tablet RxNorm: 599770 1 Tablet(s) PO TID No Start Date 05/12/2017 Inactive phentermine 37.5 mg tablet RxNorm: 895731 1 Tablet(s) PO daily No Start Date 09/19/2016 Inactive norethindrone acetate 1 mg-ethinyl estradiol 20 mcg tablet RxNorm: 0890460 1 Tablet(s) PO daily No Start Date 06/11/2016 Inactive EEMT 1.25 mg-2.5 mg tablet RxNorm: 311158 1 Tablet(s) PO daily No Start Date [...] 1: 132/72 Code: 8480-6 BMI: 28.9 Code: 23638-1 Heart Rate 1: 72 bpm Height: 5'2" SpO2: 98% Weight: 158 lbs 04/24/2017 Blood Pressure 1: 140/76 Code: 8480-6 BMI: 29.3 Code: 17811-2 Heart Rate 1: 77 bpm Height: 5'2" SpO2: 97% Weight: 160 lbs 03/27/2017 Blood Pressure 1: 128/74 Code: 8480-6 BMI: 29.1 Code: 86824-0 Heart Rate 1: 74 bpm Height: 5'2" SpO2: 98% Temperature: 36.8 (C) / 98.3 (F) Weight: 159 lbs 10/25/2016 Blood Pressure 1: 116/74 Code: 8480-6 BMI: 28.9 Code: 71994-3 Heart Rate 1: 68 bpm Height: 5'2" SpO2: 99% Weight: 158 lbs 09/20/2016 Blood Pressure 1: 116/70 Code: 8480-6 Heart Rate 1: 72 bpm Weight: 150 lbs 08/24/2016 Blood Pressure 1: 118/62 Code: 8480-6 BMI: 27.6 Code: 36852-5 Heart Rate 1: 63 bpm Height: 5'2" SpO2: 99% Weight: 151 lbs 06/12/2016 Blood Pressure 1: 122/74 Code: 8480-6 BMI: 26.9 Code: 59600-6 Heart Rate 1: 52 bpm Height: 5'2" [...] data Encounters Encounter Performer Location Codes Date 12074 EST. PATIENT, LEVEL III Diagnosis: Chronic pain syndrome[ICD10: G89.4] Diagnosis: Generalized anxiety disorder[ICD10: F41.1] Diagnosis: Major depressive disorder, single episode, moderate[ICD10: F32.1] Diagnosis: Cellulitis of right lower limb[ICD10: L03.115] [facility] CPT-4: 40119 05/27/2017 ([id number]) 20597 EST. PATIENT, LEVEL IV Diagnosis: Generalized anxiety disorder[ICD10: F41.1] Diagnosis: Major depressive disorder, single episode, moderate[ICD10: F32.1] Diagnosis: Menopausal and female climacteric states[ICD10: N95.1] Diagnosis: Chronic pain syndrome[ICD10: G89.4] Veda Jama MD, [facility] CPT- 4: 67367 04/24/2017 ([id number]) PREV VISIT EST AGE 18-39 Diagnosis: Encounter for gynecological examination (general) (routine) without abnormal findings[ICD10: Z01.419] [facility] CPT-4: 24838 03/27/2017 ([id number]) 12934 EST. PATIENT, LEVEL III Diagnosis: Overweight[ICD10: E66.3] [facility] CPT-4: 71505 10/25/2016 ([id number]) Miscellaneous no charge Diagnosis: Overweight[ICD10: E66.3] Radha Jama MD, [facility] CPT-4: 15488 09/20/2016 17886 EST. PATIENT, LEVEL IV Diagnosis: Other fatigue[ICD10: R53.83] Diagnosis: Overweight[ICD10: E66.3] Diagnosis: Generalized anxiety disorder[ICD10: F41.1] [facility] CPT-4: 29517 08/24/2016 ([id number]) OFFICE VISIT, NEW - LEVEL 4 Diagnosis: Generalized anxiety disorder[ICD10: F41.1] Diagnosis: Major depressive disorder, single episode, moderate[ICD10: F32.1] [facility] CPT-4: 12382 06/12/2016 Plan of Care Planned Activity Notes [...] discharge. 05/27/2017 Appointment: Veda Duenas [facility]el[facility] ([facility] Complex 05/27/2017 Patient Education: Patient [...] RX. 04/24/2017 Appointment: Veda Duenas [facility]Ptel[facility] ([place] min) Complex 04/24/2017 Patient Education: Patient [...] per pharmacy. 03/27/2017 Appointment: Veda Duenas WPtel: [facility]5 [facility] [facility] 03/27/2017 Patient Education: Patient Medication Summary Completed 03/27/2017 Care Plan: BMI Above normal followup SELF-MGMT EDUC & TRAIN 1 PT Pending 11/07/2016 Visit Plan: Obesity - chronic issue with this patient. The pt has been counseled about diet changes, calorie restriction, and need to exercise. Pt will RTC in one month for weight check. 10/25/2016 Appointment: Veda Duenas WPtel: [address] [place], [place] [phone] (15 min) Moderate 10/25/2016 Patient Education: Patient [...] weight check. 08/24/2016 Appointment: Radha Mcgowan WPtel: [phone] (30 min) Complex 08/24/2016 Appointment: Radha Mcgowan WPtel: [phone] [phone] (30 min) Complex 08/24/2016 Appointment: Radha Mcgowan WPtel: [facility]5 [phone] [place] [address] (30 min) Complex 08/24/2016 Patient Education: Patient [...] this patient. 06/12/2016 Appointment: Radha Mcgowan WPtel: [phone] New Patient 06/12/2016 Patient Education: Patient Medication [...]
--- OUTSIDE RECORDS SUMMARY | 2019-07-01 06:21 | XMS REPORT | CCD ---
Author Author Veda Duenas Organization [facility] Address [address] [place] [address] Phone Care Team Providers Care Invoice Control Clerk Name Role Phone PP Unavailable CCM Unavailable Summary Purpose Interface Exchange Insurance Providers Payer name Policy type / Coverage type Covered alliance party ID Effective Begin Date Effective End Date Blue Cross [id number] Unknown Family history Father Diagnosis Age At Onset Diabetes Unknown Hyperlipidemia Unknown Hypertension Unknown Heart Attack Unknown Social History Social History Element Codes Description Effective Dates Marital status Unknown CJ 06/12/2016 Number of children Unknown 3 06/12/[address]: 102520846 Never smoker 06/12/[address]: 322222953 Never drinks alcohol 06/12/2016 Allergies, Adverse Reactions, Alerts Allergies, Adverse Reactions, Alerts data not found Past Medical History Illness Codes Condition Status Onset Date Resolved Date Chronic pain syndrome ICD- 9: 338.4 ICD-10: [...] Problems Condition Codes Effective Dates Condition Status Chronic pain syndrome ICD- 9: 338.4 ICD-10: [...] Fill Instructions cyclobenzaprine 5 mg tablet RxNorm: 384831 TAKE ONE TABLET BY MOUTH THREE TIMES DAILY NEEDED FOR MUSCLE SPASM 05/01/2017 05/05/2017 Inactive hydrocodone 5 mg-acetaminophen 325 mg tablet RxNorm: 679287 1 Tablet(s) PO TID as needed 04/24/2017 No Stop Date Active cyclobenzaprine 5 mg tablet RxNorm: 890184 1 Tablet(s) PO TID as needed muscle spasms 04/24/2017 04/28/2017 Inactive diazepam 10 mg tablet RxNorm: 859164 1 Tablet(s) PO TID as needed anxiety 02/22/2017 04/22/2017 Inactive norethindrone acetate 1 mg-ethinyl estradiol 20 mcg tablet RxNorm: 5189664 1 Tablet(s) PO daily 12/18/2016 07/15/2017 Active EEMT 1.25 mg-2.5 mg tablet RxNorm: 913977 1 Tablet(s) PO daily 12/06/2016 03/05/2017 Inactive Lexapro 10 mg tablet RxNorm: 721154 1 Tablet(s) PO daily 12/06/2016 05/04/2017 Inactive EEMT 1.25 mg-2.5 mg tablet RxNorm: 916272 1 Tablet(s) PO daily 12/06/2016 12/05/2016 Inactive diazepam 10 mg tablet RxNorm: 070913 1 Tablet(s) PO TID 11/09/2016 12/07/2016 Inactive phentermine 37.5 mg tablet RxNorm: 874459 1 Tablet(s) PO daily 10/25/2016 No Stop Date Active EEMT 1.25 mg-2.5 mg tablet RxNorm: 276606 1 Tablet(s) PO daily 10/25/2016 12/05/2016 Inactive phentermine 37.5 mg tablet RxNorm: 884761 1 Tablet(s) PO daily 09/20/2016 10/24/2016 Inactive Lexapro 10 mg tablet RxNorm: 562570 1 Tablet(s) PO daily 07/10/2016 12/05/2016 Inactive Lexapro 10 mg tablet RxNorm: 291503 1 Tablet(s) PO daily 06/12/2016 07/09/2016 Inactive norethindrone acetate 1 mg-ethinyl estradiol 20 mcg tablet RxNorm: 0682403 1 Tablet(s) PO daily 06/12/2016 12/17/2016 Inactive hydrocodone 10 mg-acetaminophen 325 mg tablet RxNorm: 173158 1 Tablet(s) PO TID No Start Date Active phentermine 37.5 mg tablet RxNorm: 354739 1 Tablet(s) PO daily No Start Date 09/19/2016 Inactive norethindrone acetate 1 mg-ethinyl estradiol 20 mcg tablet RxNorm: 3907700 1 Tablet(s) PO daily No Start Date 06/11/2016 Inactive EEMT 1.25 mg-2.5 mg tablet RxNorm: 558132 1 Tablet(s) PO daily No Start Date 10/24/2016 Inactive Medication Administered No Medication Administered data Immunizations No Immunization data Assessments Condition Codes Effective Dates Chronic pain syndrome ICD-10: G89.4 ICD-9: 338.4 04/24/2017 Generalized anxiety disorder ICD-10: F41.1 ICD-9: 300.02 04/24/2017 Menopausal and female climacteric states ICD-10: N95.1 ICD-9: 627.2 04/24/2017 Major depressive disorder, single episode, moderate ICD-10: F32.1 ICD-9: 296.22 04/24/2017 Encounter for gynecological examination (general) (routine) without abnormal findings ICD-10: Z01.419 ICD-9: V72.31 03/27/2017 Overweight ICD-10: E66.3 ICD-9: 278.02 10/25/2016 Other fatigue ICD-10: R53.83 ICD-9: 780.79 08/24/2016 Reason For Visit Reason For Visit Effective Dates Notes medication follow up 04/24/2017 well woman exam (18-39 years) 03/27/2017 medication follow up 10/25/2016 weight gain/obesity 08/24/2016 depression 06/12/2016 Results No Results data Review of Systems System Result Effective Dates Constitutional No recent illness 04/24/2017 Constitutional No [...] No Procedures data Vital Signs Date Vital 04/24/2017 Blood Pressure 1: 140/76 Code: 8480-6 BMI: 29.3 Code: 10847-3 Heart Rate 1: 77 bpm Height: 5'2" SpO2: 97% Weight: 160 lbs 03/27/2017 Blood Pressure 1: 128/74 Code: 8480-6 BMI: 29.1 Code: 03023-0 Heart Rate 1: 74 bpm Height: 5'2" SpO2: 98% Temperature: 36.8 (C) / 98.3 (F) Weight: 159 lbs 10/25/2016 Blood Pressure 1: 116/74 Code: 8480-6 BMI: 28.9 Code: 95834-5 Heart Rate 1: 68 bpm Height: 5'2" SpO2: 99% Weight: 158 lbs 09/20/2016 Blood Pressure 1: 116/70 Code: 8480-6 Heart Rate 1: 72 bpm Weight: 150 lbs 08/24/2016 Blood Pressure 1: 118/62 Code: 8480-6 BMI: 27.6 Code: 20404-5 Heart Rate 1: 63 bpm Height: 5'2" SpO2: 99% Weight: 151 lbs 06/12/2016 Blood Pressure 1: 122/74 Code: 8480-6 BMI: 26.9 Code: 08582-6 Heart Rate 1: 52 bpm Height: 5'2" SpO2: 97% Weight: 147 lbs Functional Status No Functional Status data History of Present Illness Symptom Name Status Result Effective Date Notes medication follow up Additional Comments medication use [...] Performer Location Codes Date EST. PATIENT, LEVEL IV Diagnosis: Generalized anxiety disorder[ICD10: F41.1] Diagnosis: Major depressive disorder, single episode, moderate[ICD10: F32.1] Diagnosis: Menopausal and female climacteric states[ICD10: N95.1] Diagnosis: Chronic pain syndrome[ICD10: G89.4] [facility] CPT- 4: 69219 04/24/2017 ([id number]) PREV VISIT EST AGE 18-39 Diagnosis: Encounter for gynecological examination (general) (routine) without abnormal findings[ICD10: Z01.419] [facility] CPT-4: 29009 03/27/2017 ([id number]) 46829 EST. PATIENT, LEVEL III Diagnosis: Overweight[ICD10: E66.3] [facility] MD, [facility] CPT-4: 77524 10/25/2016 ([id number]) Miscellaneous no charge Diagnosis: Overweight[ICD10: E66.3] [facility] CPT-4: 44350 09/20/2016 61969 EST. PATIENT, LEVEL IV Diagnosis: Other fatigue[ICD10: R53.83] Diagnosis: Overweight[ICD10: E66.3] Diagnosis: Generalized anxiety disorder[ICD10: F41.1] Veda Jama MD, [facility] CPT-4: 73529 08/24/2016 ([id number]) OFFICE VISIT, NEW - LEVEL 4 Diagnosis: Generalized anxiety disorder[ICD10: F41.1] Diagnosis: Major depressive disorder, single episode, moderate[ICD10: F32.1] Veda Jama MD, [facility] CPT-4: 43270 06/12/2016 Plan of Care Planned Activity Notes [...] new RX. 04/24/2017 Appointment: [facility] [phone] [facility] ([facility] Complex 04/24/2017 Patient Education: Patient [...] pharmacy. 03/27/2017 Appointment: Veda Duenas WPtel: [facility] Well Woman 03/27/2017 Patient Education: Patient Medication Summary Completed 03/27/2017 Care Plan: BMI Above normal followup SELF-MGMT EDUC & TRAIN 1 PT Pending 11/07/2016 Visit Plan: Obesity - chronic issue with this patient. The pt has been counseled about diet changes, calorie restriction, and need to exercise. Pt will RTC in one month for weight check. 10/25/2016 Appointment: Veda Duenas WPtel: [facility] (15 min) Moderate 10/25/2016 Patient Education: Patient [...] one month for weight check. 08/24/2016 Appointment: Juan M Radha WPtel: [phone] (30 min) Complex 08/24/2016 Appointment: Radha Mcgowan WPtel: [facility] (30 min) Complex 08/24/2016 Appointment: Radha Mcgowan WPtel: [facility] [address] (30 min) Complex 08/24/2016 Patient Education: [...] this patient. 06/12/2016 Appointment: Radha Mcgowan WPtel: [facility] [address] New Patient 06/12/2016 Patient Education: Patient Medication [...]
--- OUTSIDE RECORDS SUMMARY | 2019-07-01 06:21 | XMS REPORT | CCD ---
Author Author Veda Duenas Organization [facility] Address [address] [place] [address] Phone Care Team Providers Care Hair Designer Name Role Phone PP Unavailable CCM Unavailable Summary Purpose Interface Exchange Insurance Providers Payer name Policy type / Coverage type Covered constitution party ID Effective Begin Date Effective End Date Blue Cross [id number] Unknown Family history Father Diagnosis Age At Onset Diabetes Unknown Hyperlipidemia Unknown Hypertension Unknown Heart Attack Unknown Social History Social History Element Codes Description Effective Dates Marital status Unknown CJ 06/12/2016 Number of children Unknown 3 06/12/[address]: 369927456 Never smoker 06/12/[address]: 357365345 Never drinks alcohol 06/12/2016 Allergies, Adverse Reactions, [...] Date Stop Date Status Fill Instructions hydrocodone 7.5 mg-acetaminophen 325 mg tablet RxNorm: 102006 1 Tablet(s) PO TID as needed 05/13/2017 06/11/2017 Active hydrocodone 7.5 mg-acetaminophen 325 mg tablet RxNorm: 011120 1 Tablet(s) PO TID as needed 05/13/2017 05/12/2017 Inactive cyclobenzaprine 5 mg tablet RxNorm: 104845 TAKE ONE TABLET BY MOUTH THREE TIMES DAILY NEEDED FOR MUSCLE SPASM 05/01/2017 05/05/2017 Inactive hydrocodone 5 mg-acetaminophen 325 mg tablet RxNorm: 050511 1 Tablet(s) PO TID as needed 04/24/2017 05/12/2017 Inactive cyclobenzaprine 5 mg tablet RxNorm: 557020 1 Tablet(s) PO TID as needed muscle spasms 04/24/2017 04/28/2017 Inactive diazepam 10 mg tablet RxNorm: 046964 1 Tablet(s) PO TID as needed anxiety 02/22/2017 04/22/2017 Inactive norethindrone acetate 1 mg-ethinyl estradiol 20 mcg tablet RxNorm: 6279565 1 Tablet(s) PO daily 12/18/2016 07/15/2017 Active EEMT 1.25 mg-2.5 mg tablet RxNorm: 904246 1 Tablet(s) PO daily 12/06/2016 03/05/2017 Inactive Lexapro 10 mg tablet RxNorm: 635656 1 Tablet(s) PO daily 12/06/2016 05/04/2017 Inactive EEMT 1.25 mg-2.5 mg tablet RxNorm: 470409 1 Tablet(s) PO daily 12/06/2016 12/05/2016 Inactive diazepam 10 mg tablet RxNorm: 625403 1 Tablet(s) PO TID 11/09/2016 12/07/2016 Inactive phentermine 37.5 mg tablet RxNorm: 830979 1 Tablet(s) PO daily 10/25/2016 No Stop Date Active EEMT 1.25 mg-2.5 mg tablet RxNorm: 722246 1 Tablet(s) PO daily 10/25/2016 12/05/2016 Inactive phentermine 37.5 mg tablet RxNorm: 841336 1 Tablet(s) PO daily 09/20/2016 10/24/2016 Inactive Lexapro 10 mg tablet RxNorm: 019108 1 Tablet(s) PO daily 07/10/2016 12/05/2016 Inactive Lexapro 10 mg tablet RxNorm: 726152 1 Tablet(s) PO daily 06/12/2016 07/09/2016 Inactive norethindrone acetate 1 mg-ethinyl estradiol 20 mcg tablet RxNorm: 0640105 1 Tablet(s) PO daily 06/12/2016 12/17/2016 Inactive hydrocodone 10 mg-acetaminophen 325 mg tablet RxNorm: 816969 1 Tablet(s) PO TID No Start Date 05/12/2017 Inactive phentermine 37.5 mg tablet RxNorm: 094560 1 Tablet(s) PO daily No Start Date 09/19/2016 Inactive norethindrone acetate 1 mg-ethinyl estradiol 20 mcg tablet RxNorm: 1527125 1 Tablet(s) PO daily No Start Date 06/11/2016 Inactive EEMT 1.25 mg-2.5 mg tablet RxNorm: 346902 1 Tablet(s) PO daily No Start Date [...] 1: 140/76 Code: 8480-6 BMI: 29.3 Code: 12477-4 Heart Rate 1: 77 bpm Height: 5'2" SpO2: 97% Weight: 160 lbs 03/27/2017 Blood Pressure 1: 128/74 Code: 8480-6 BMI: 29.1 Code: 58041-0 Heart Rate 1: 74 bpm Height: 5'2" SpO2: 98% Temperature: 36.8 (C) / 98.3 (F) Weight: 159 lbs 10/25/2016 Blood Pressure 1: 116/74 Code: 8480-6 BMI: 28.9 Code: 81594-9 Heart Rate 1: 68 bpm Height: 5'2" SpO2: 99% Weight: 158 lbs 09/20/2016 Blood Pressure 1: 116/70 Code: 8480-6 Heart Rate 1: 72 bpm Weight: 150 lbs 08/24/2016 Blood Pressure 1: 118/62 Code: 8480-6 BMI: 27.6 Code: 87019-3 Heart Rate 1: 63 bpm Height: 5'2" SpO2: 99% Weight: 151 lbs 06/12/2016 Blood Pressure 1: 122/74 Code: 8480-6 BMI: 26.9 Code: 39769-7 Heart Rate 1: 52 bpm Height: 5'2" [...] data Encounters Encounter Performer Location Codes Date ([id number]) 82022 EST. PATIENT, LEVEL IV Diagnosis: Generalized anxiety disorder[ICD10: F41.1] Diagnosis: Major depressive disorder, single episode, moderate[ICD10: F32.1] Diagnosis: Menopausal and female climacteric states[ICD10: N95.1] Diagnosis: Chronic pain syndrome[ICD10: G89.4] [facility] CPT- 4: 09895 04/24/2017 ([id number]) PREV VISIT EST AGE 18-39 Diagnosis: Encounter for gynecological examination (general) (routine) without abnormal findings[ICD10: Z01.419] [facility] CPT-4: 16879 03/27/2017 ([id number]) 82200 EST. PATIENT, LEVEL III Diagnosis: Overweight[ICD10: E66.3] [facility] CPT-4: 80842 10/25/2016 ([id number]) Miscellaneous no charge Diagnosis: Overweight[ICD10: E66.3] [facility] CPT-4: 96890 09/20/2016 08387 EST. PATIENT, LEVEL IV Diagnosis: Other fatigue[ICD10: R53.83] Diagnosis: Overweight[ICD10: E66.3] Diagnosis: Generalized anxiety disorder[ICD10: F41.1] [facility] CPT-4: 40420 08/24/2016 ([id number]) OFFICE VISIT, NEW - LEVEL 4 Diagnosis: Generalized anxiety disorder[ICD10: F41.1] Diagnosis: Major depressive disorder, single episode, moderate[ICD10: F32.1] [facility] CPT-4: 84040 06/12/2016 Plan of Care Planned Activity Notes Codes Status Date Appointment: Veda Duenas [facility]el: [facility] ([facility] Complex 04/24/2017 Patient Education: Patient Medication Summary Completed 04/24/2017 Appointment: Veda Duenas WPtel: [facility] Well [facility] 03/27/2017 Patient Education: Patient Medication Summary Completed 03/27/2017 Care Plan: BMI Above normal followup SELF-MGMT EDUC & TRAIN 1 PT Pending 11/07/2016 Appointment: Veda Duenas WPtel: [facility] (15 min) Moderate 10/25/2016 Patient Education: Patient Medication Summary Completed 10/25/2016 Patient Education: Obesity Completed 10/25/2016 Appointment: Nurse Visit 09/20/2016 Patient Education: Patient Medication Summary Completed 09/20/2016 Patient Education: Obesity Completed 09/20/2016 Appointment: Nurse Visit 09/17/2016 Appointment: Radha Mcgowan [facility]el[facility] [phone] [phone] (30 min) Complex 08/24/2016 Appointment: Radha Mcgowan WPtel: [phone] [phone] (30 min) Complex 08/24/2016 Appointment: Radha Mcgowan WPtel: [phone] [phone] (30 min) Complex 08/24/2016 Patient Education: Patient Medication Summary Completed 08/24/2016 Patient Education: Obesity Completed 08/24/2016 Appointment: Radha Mcgowan WPtel: [phone] New Patient 06/12/2016 Patient Education: Patient Medication Summary Completed 06/12/2016 Patient Education: Obesity Completed 06/12/2016 Instructions No Instructions
--- OUTSIDE RECORDS SUMMARY | 2019-07-01 06:22 | XMS REPORT | CCD ---
Author Author Veda Duenas Organization [facility] Address [address] [place] [address] Phone Care Team Providers Care Welfare Director Name Role Phone PP Unavailable CCM Unavailable Summary Purpose Interface Exchange Insurance Providers Payer name Policy type / Coverage type Covered republican ID Effective Begin Date Effective End Date Blue Cross [id number] Unknown Family history Father Diagnosis Age At Onset Diabetes Unknown Hyperlipidemia Unknown Hypertension Unknown Heart Attack Unknown Social History Social History Element Codes Description Effective Dates Marital status Unknown CJ 06/12/2016 Number of children Unknown 3 06/12/[address]: 064042251 Never smoker 06/12/[address]: 343588049 Never drinks alcohol 06/12/2016 Allergies, Adverse Reactions, [...] Fill Instructions cyclobenzaprine 5 mg tablet RxNorm: 339738 TAKE ONE TABLET BY MOUTH THREE TIMES DAILY NEEDED FOR MUSCLE SPASM 05/01/2017 05/05/2017 Inactive hydrocodone 5 mg-acetaminophen 325 mg tablet RxNorm: 032004 1 Tablet(s) PO TID as needed 04/24/2017 No Stop Date Active cyclobenzaprine 5 mg tablet RxNorm: 957362 1 Tablet(s) PO TID as needed muscle spasms 04/24/2017 04/28/2017 Inactive diazepam 10 mg tablet RxNorm: 461702 1 Tablet(s) PO TID as needed anxiety 02/22/2017 04/22/2017 Inactive norethindrone acetate 1 mg-ethinyl estradiol 20 mcg tablet RxNorm: 9714037 1 Tablet(s) PO daily 12/18/2016 07/15/2017 Active EEMT 1.25 mg-2.5 mg tablet RxNorm: 428966 1 Tablet(s) PO daily 12/06/2016 03/05/2017 Inactive Lexapro 10 mg tablet RxNorm: 081033 1 Tablet(s) PO daily 12/06/2016 05/04/2017 Inactive EEMT 1.25 mg-2.5 mg tablet RxNorm: 165343 1 Tablet(s) PO daily 12/06/2016 12/05/2016 Inactive diazepam 10 mg tablet RxNorm: 904539 1 Tablet(s) PO TID 11/09/2016 12/07/2016 Inactive phentermine 37.5 mg tablet RxNorm: 335376 1 Tablet(s) PO daily 10/25/2016 No Stop Date Active EEMT 1.25 mg-2.5 mg tablet RxNorm: 258088 1 Tablet(s) PO daily 10/25/2016 12/05/2016 Inactive phentermine 37.5 mg tablet RxNorm: 890133 1 Tablet(s) PO daily 09/20/2016 10/24/2016 Inactive Lexapro 10 mg tablet RxNorm: 495465 1 Tablet(s) PO daily 07/10/2016 12/05/2016 Inactive Lexapro 10 mg tablet RxNorm: 184434 1 Tablet(s) PO daily 06/12/2016 07/09/2016 Inactive norethindrone acetate 1 mg-ethinyl estradiol 20 mcg tablet RxNorm: 6188978 1 Tablet(s) PO daily 06/12/2016 12/17/2016 Inactive hydrocodone 10 mg-acetaminophen 325 mg tablet RxNorm: 021923 1 Tablet(s) PO TID No Start Date Active phentermine 37.5 mg tablet RxNorm: 526167 1 Tablet(s) PO daily No Start Date 09/19/2016 Inactive norethindrone acetate 1 mg-ethinyl estradiol 20 mcg tablet RxNorm: 0261273 1 Tablet(s) PO daily No Start Date 06/11/2016 Inactive EEMT 1.25 mg-2.5 mg tablet RxNorm: 169600 1 Tablet(s) PO daily No Start Date [...] 1: 140/76 Code: 8480-6 BMI: 29.3 Code: 31245-4 Heart Rate 1: 77 bpm Height: 5'2" SpO2: 97% Weight: 160 lbs 03/27/2017 Blood Pressure 1: 128/74 Code: 8480-6 BMI: 29.1 Code: 42085-9 Heart Rate 1: 74 bpm Height: 5'2" SpO2: 98% Temperature: 36.8 (C) / 98.3 (F) Weight: 159 lbs 10/25/2016 Blood Pressure 1: 116/74 Code: 8480-6 BMI: 28.9 Code: 73872-6 Heart Rate 1: 68 bpm Height: 5'2" SpO2: 99% Weight: 158 lbs 09/20/2016 Blood Pressure 1: 116/70 Code: 8480-6 Heart Rate 1: 72 bpm Weight: 150 lbs 08/24/2016 Blood Pressure 1: 118/62 Code: 8480-6 BMI: 27.6 Code: 97042-8 Heart Rate 1: 63 bpm Height: 5'2" SpO2: 99% Weight: 151 lbs 06/12/2016 Blood Pressure 1: 122/74 Code: 8480-6 BMI: 26.9 Code: 87951-0 Heart Rate 1: 52 bpm Height: 5'2" [...] Codes Date EST. PATIENT, LEVEL III Diagnosis: Generalized anxiety disorder[ICD10: F41.1] Diagnosis: Major depressive disorder, single episode, moderate[ICD10: F32.1] Diagnosis: Menopausal and female climacteric states[ICD10: N95.1] Diagnosis: Chronic pain syndrome[ICD10: G89.4] [facility] CPT- 4: 77627 04/24/2017 ([id number]) PREV VISIT EST AGE 18-39 Diagnosis: Encounter for gynecological examination (general) (routine) without abnormal findings[ICD10: Z01.419] [facility] CPT-4: 59641 03/27/2017 ([id number]) 81148 EST. PATIENT, LEVEL III Diagnosis: Overweight[ICD10: E66.3] [facility] CPT-4: 92542 10/25/2016 ([id number]) Miscellaneous no charge Diagnosis: Overweight[ICD10: E66.3] Radha [facility] CPT-4: 84689 09/20/2016 49669 EST. PATIENT, LEVEL IV Diagnosis: Other fatigue[ICD10: R53.83] Diagnosis: Overweight[ICD10: E66.3] Diagnosis: Generalized anxiety disorder[ICD10: F41.1] [facility] CPT-4: 18676 08/24/2016 ([id number]) OFFICE VISIT, NEW - LEVEL 4 Diagnosis: Generalized anxiety disorder[ICD10: F41.1] Diagnosis: Major depressive disorder, single episode, moderate[ICD10: F32.1] [facility] CPT-4: 37461 06/12/2016 Plan of Care Planned Activity Notes [...] new RX. 04/24/2017 Appointment: Veda Duenas WPtel: [address] [place], [place] [address] (30 min) Complex 04/24/2017 Patient Education: Patient Medication Summary Completed 04/24/2017 Patient Education: Obesity Completed 04/24/2017 Visit Plan: Well Adult Female [...] per pharmacy. 03/27/2017 Appointment: Veda Duenas WPtel: [id number] Well Woman 03/27/2017 Patient Education: Patient Medication Summary Completed 03/27/2017 Care Plan: BMI Above normal followup SELF-MGMT EDUC & TRAIN 1 PT Pending 11/07/2016 Visit Plan: Obesity - chronic issue with this patient. The pt has been counseled about diet changes, calorie restriction, and need to exercise. Pt will RTC in one month for weight check. 10/25/2016 Appointment: Veda Duenas WPtel: [id number] (15 min) Moderate 10/25/2016 Patient Education: Patient [...] weight check. 08/24/2016 Appointment: Radha Mcgowan WPtel: [phone] [phone] (30 min) Complex 08/24/2016 Appointment: Radha Mcgowan WPtel: [address] [place], [place] [phone] (30 min) Complex 08/24/2016 Appointment: Radha Mcgowan WPtel: [address] [place], [place] [phone] (30 min) Complex 08/24/2016 Patient Education: Patient [...] this patient. 06/12/2016 Appointment: Radha Mcgowan WPtel: [address] [place], [place] [phone] [place] [address] New Patient 06/12/2016 Patient Education: Patient Medication [...]
--- OUTSIDE RECORDS SUMMARY | 2019-07-01 06:22 | XMS REPORT | CCD ---
Author Author [facility] Address [address] [place] [address] Phone Care Team Providers Care Political Anthropologist Name Role Phone PP Unavailable CCM Unavailable Summary Purpose Interface Exchange Insurance Providers Payer name Policy type / Coverage type Covered green party ID Effective Begin Date Effective End Date Blue Cross [facility] Blue Cross/[facility] access [id number] Unknown Family history Father Diagnosis Age At Onset Diabetes Unknown Hyperlipidemia Unknown Hypertension Unknown Heart Attack Unknown Social History Social History Element Codes Description Effective Dates Marital status Unknown CJ 06/12/2016 Number of children Unknown 3 06/12/[address]: 911054248 Never smoker 06/12/[address]: 388314878 Never drinks alcohol 06/12/2016 Allergies, Adverse Reactions, Alerts Allergies, Adverse Reactions, Alerts data not found Past Medical History Illness Codes Condition Status Onset Date Resolved Date Encounter for gynecological examination (general) (routine) without abnormal findings ICD-9: V72.31 ICD-10: Z01.419 Active 03/27/2017 Unknown Overweight ICD-9: 278.02 ICD-10: E66.3 Active 10/24/2016 Unknown Generalized anxiety disorder ICD-9: 300.02 ICD-10: F41.1 Active 08/23/2016 Unknown Other fatigue ICD-9: 780.79 ICD-10: R53.83 Active 08/23/2016 Unknown Major depressive disorder, single episode, moderate ICD-9: 296.22 ICD-10: F32.1 Active 06/11/2016 Unknown Problems Condition Codes Effective Dates Condition Status Encounter for gynecological examination (general) (routine) without abnormal findings ICD-9: V72.31 ICD-10: Z01.419 03/27/2017 Active Overweight ICD-9: 278.02 ICD-10: E66.3 10/24/2016 Active Generalized anxiety disorder ICD-9: 300.02 ICD-10: F41.1 08/23/2016 Active Other fatigue ICD-9: 780.79 ICD-10: R53.83 08/23/2016 Active Major depressive disorder, single episode, moderate ICD-9: 296.22 ICD-10: F32.1 06/11/2016 Active Medications Medication Codes Instructions Start Date Stop Date Status Fill Instructions cyclobenzaprine 5 mg tablet RxNorm: 084615 TAKE ONE TABLET BY MOUTH THREE TIMES DAILY NEEDED FOR MUSCLE SPASM 05/01/2017 05/05/2017 Active cyclobenzaprine 5 mg tablet RxNorm: 518029 1 Tablet(s) PO TID as needed muscle spasms 04/24/2017 04/28/2017 Inactive diazepam 10 mg tablet RxNorm: 102368 1 Tablet(s) PO TID as needed anxiety 02/22/2017 04/22/2017 Inactive norethindrone acetate 1 mg-ethinyl estradiol 20 mcg tablet RxNorm: 5254625 1 Tablet(s) PO daily 12/18/2016 07/15/2017 Active EEMT 1.25 mg-2.5 mg tablet RxNorm: 752833 1 Tablet(s) PO daily 12/06/2016 03/05/2017 Inactive Lexapro 10 mg tablet RxNorm: 040691 1 Tablet(s) PO daily 12/06/2016 05/04/2017 Active EEMT 1.25 mg-2.5 mg tablet RxNorm: 895103 1 Tablet(s) PO daily 12/06/2016 12/05/2016 Inactive diazepam 10 mg tablet RxNorm: 255031 1 Tablet(s) PO TID 11/09/2016 12/07/2016 Inactive phentermine 37.5 mg tablet RxNorm: 407212 1 Tablet(s) PO daily 10/25/2016 No Stop Date Active EEMT 1.25 mg-2.5 mg tablet RxNorm: 122809 1 Tablet(s) PO daily 10/25/2016 12/05/2016 Inactive phentermine 37.5 mg tablet RxNorm: 646821 1 Tablet(s) PO daily 09/20/2016 10/24/2016 Inactive Lexapro 10 mg tablet RxNorm: 497743 1 Tablet(s) PO daily 07/10/2016 12/05/2016 Inactive Lexapro 10 mg tablet RxNorm: 800317 1 Tablet(s) PO daily 06/12/2016 07/09/2016 Inactive norethindrone acetate 1 mg-ethinyl estradiol 20 mcg tablet RxNorm: 1380738 1 Tablet(s) PO daily 06/12/2016 12/17/2016 Inactive hydrocodone 10 mg-acetaminophen 325 mg tablet RxNorm: 321786 1 Tablet(s) PO TID No Start Date Active phentermine 37.5 mg tablet RxNorm: 791744 1 Tablet(s) PO daily No Start Date 09/19/2016 Inactive norethindrone acetate 1 mg-ethinyl estradiol 20 mcg tablet RxNorm: 6657867 1 Tablet(s) PO daily No Start Date 06/11/2016 Inactive EEMT 1.25 mg-2.5 mg tablet RxNorm: 360921 1 Tablet(s) PO daily No Start Date 10/24/2016 Inactive Medication Administered No Medication Administered data Immunizations No Immunization data Assessments Condition Codes Effective Dates Encounter for gynecological examination (general) (routine) without abnormal findings ICD-10: Z01.419 ICD-9: V72.31 03/27/2017 Overweight ICD-10: E66.3 ICD-9: 278.02 10/25/2016 Other fatigue ICD-10: R53.83 ICD-9: 780.79 08/24/2016 Generalized anxiety disorder ICD-10: F41.1 ICD-9: 300.02 08/24/2016 Major depressive disorder, single episode, moderate ICD-10: F32.1 ICD-9: 296.22 06/12/2016 Reason For Visit Reason For Visit Effective Dates Notes well woman exam (18-39 years) 03/27/2017 medication follow up 10/25/2016 weight gain/obesity 08/24/2016 depression 06/12/2016 Results No Results data Review of Systems System Result Effective Dates Constitutional No recent illness 03/27/2017 Constitutional No [...] Result Effective Dates Notes Full Exam - Genitourinary/Female Constitutional general appearance [...] No Procedures data Vital Signs Date Vital 03/27/2017 Blood Pressure 1: 128/74 Code: 8480-6 BMI: 29.1 Code: 52921-3 Heart Rate 1: 74 bpm Height: 5'2" SpO2: 98% Temperature: 36.8 (C) / 98.3 (F) Weight: 159 lbs 10/25/2016 Blood Pressure 1: 116/74 Code: 8480-6 BMI: 28.9 Code: 15773-0 Heart Rate 1: 68 bpm Height: 5'2" SpO2: 99% Weight: 158 lbs 09/20/2016 Blood Pressure 1: 116/70 Code: 8480-6 Heart Rate 1: 72 bpm Weight: 150 lbs 08/24/2016 Blood Pressure 1: 118/62 Code: 8480-6 BMI: 27.6 Code: 65105-7 Heart Rate 1: 63 bpm Height: 5'2" SpO2: 99% Weight: 151 lbs 06/12/2016 Blood Pressure 1: 122/74 Code: 8480-6 BMI: 26.9 Code: 23314-8 Heart Rate 1: 52 bpm Height: 5'2" SpO2: 97% Weight: 147 lbs Functional Status No Functional Status data History of Present Illness Symptom Name Status Result Effective Date Notes well woman exam (18-39 years) Control none [...] data Encounters Encounter Performer Location Codes Date (50574) PREV VISIT EST AGE 18-39 Diagnosis: Encounter for gynecological examination (general) (routine) without abnormal findings[ICD10: Z01.419] [facility] CPT-4: 98026 03/27/2017 (25015) 62415 EST. PATIENT, LEVEL III Diagnosis: Overweight[ICD10: E66.3] [facility] CPT-4: 55841 10/25/2016 (69904) Miscellaneous no charge Diagnosis: Overweight[ICD10: E66.3] [facility] CPT-4: 88242 09/20/2016 04011 EST. PATIENT, LEVEL IV Diagnosis: Other fatigue[ICD10: R53.83] Diagnosis: Overweight[ICD10: E66.3] Diagnosis: Generalized anxiety disorder[ICD10: F41.1] [facility] CPT-4: 80795 08/24/2016 (78637) OFFICE VISIT, NEW - LEVEL 4 Diagnosis: Generalized anxiety disorder[ICD10: F41.1] Diagnosis: Major depressive disorder, single episode, moderate[ICD10: F32.1] [facility] CPT-4: 12297 06/12/2016 Plan of Care Planned Activity Notes Codes Status Date Appointment: Veda Duenas WPtel: [facility] (30 min) Complex 04/24/2017 Visit Plan: Well Adult Female - [...] per pharmacy. 03/27/2017 Appointment: Veda Duenas WPtel: [facility] Well Woman 03/27/2017 Patient Education: Patient Medication Summary Completed 03/27/2017 Care Plan: BMI Above normal followup SELF-MGMT EDUC & TRAIN 1 PT Pending 11/07/2016 Visit Plan: Obesity - chronic issue with this patient. The pt has been counseled about diet changes, calorie restriction, and need to exercise. Pt will RTC in one month for weight check. 10/25/2016 Appointment: [facility] (15 min) Moderate 10/25/2016 Patient Education: [...] weight check. 08/24/2016 Appointment: Radha Mcgowan WPtel: [phone] (30 min) Complex 08/24/2016 Appointment: Radha Mcgowan WPtel: [phone] (30 min) Complex 08/24/2016 Appointment: Radha Mcgowan [facility]Ptel[phone] (30 min) Complex 08/24/2016 Patient Education: Patient [...] prescribed for this patient. 06/12/2016 Appointment: [facility] MJohnnyie [facility] [phone] [phone] New Patient 06/12/2016 Patient Education: Patient Medication [...]
--- OUTSIDE RECORDS SUMMARY | 2019-07-01 06:24 | XMS REPORT | CCD ---
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 Name Role Phone PP Unavailable CCM Unavailable Summary Purpose Interface Exchange Insurance Providers Payer name Policy type / Coverage type Covered republican ID Effective Begin Date Effective End Date [employer] [id number] 2018 Unknown Family history Father Diagnosis Age At Onset Diabetes Unknown Hyperlipidemia Unknown Hypertension Unknown Heart Attack Unknown Social History Social History Element Codes Description Effective Dates Marital status Unknown CJ 06/12/2016 Number of children Unknown 3 06/12/[address]: 851857064 Never smoker 06/12/[address]: 949548169 Never drinks alcohol 06/12/2016 Allergies, Adverse Reactions, [...] hydrocodone 5 mg-acetaminophen 325 mg tablet RxNorm: 272843 1-1.5 Tablet(s) PO QID as needed 03/23/2019 04/21/2019 Active prednisolone 15 mg/5 mL oral solution RxNorm: 282420 5 Milliliter(s) PO BID 02/23/2019 02/27/2019 Inactive valacyclovir 1 gram tablet RxNorm: 513987 1 Tablet(s) PO TID 02/23/2019 03/01/2019 Inactive hydrocodone 5 mg-acetaminophen 325 mg tablet RxNorm: 701191 1-1.5 Tablet(s) PO QID as needed 02/23/2019 03/22/2019 Inactive hydrocodone 5 mg-acetaminophen 325 mg tablet RxNorm: 153553 1-1.5 Tablet(s) PO QID as needed 01/28/2019 02/26/2019 Inactive hydrocodone 5 mg-acetaminophen 325 mg tablet RxNorm: 594358 1-1.5 Tablet(s) PO QID as needed 01/01/2019 01/27/2019 Inactive cyclobenzaprine 5 mg tablet RxNorm: 960233 TAKE ONE TABLET BY MOUTH THREE TIMES DAILY NEEDED FOR MUSCLE SPASM 12/16/2018 No Stop Date Active phentermine 37.5 mg tablet RxNorm: 739753 1 Tablet(s) PO daily 11/27/2018 No Stop Date Active Lexapro 10 mg tablet RxNorm: 284913 TAKE 1 TABLET BY MOUTH ONCE DAILY 11/26/2018 No Stop Date Active cyclobenzaprine 5 mg tablet RxNorm: 008303 TAKE ONE TABLET BY MOUTH THREE TIMES DAILY NEEDED FOR MUSCLE SPASM 11/12/2018 12/15/2018 Inactive hydrocodone 5 mg-acetaminophen 325 mg tablet RxNorm: 856008 1-1.5 Tablet(s) PO QID as needed 11/06/2018 12/05/2018 Inactive Lyrica 100 mg capsule RxNorm: 876814 1 Capsule(s) PO BID as needed 10/31/2018 01/28/2019 Inactive pravastatin 20 mg tablet RxNorm: 119090 1 Tablet(s) PO QPM 10/28/2018 02/24/2019 Inactive pravastatin 20 mg tablet RxNorm: 424119 1 Tablet(s) PO QPM 10/28/2018 10/27/2018 Inactive EEMT 1.25 mg-2.5 mg tablet RxNorm: 492966 1 Tablet(s) PO daily 10/09/2018 01/06/2019 Inactive norethindrone acetate 1 mg-ethinyl estradiol 20 mcg tablet RxNorm: 4940470 1 Tablet(s) PO daily 10/09/2018 10/03/2019 Active hydrocodone 5 mg-acetaminophen 325 mg tablet RxNorm: 833764 1-1.5 Tablet(s) PO QID as needed 10/09/2018 11/05/2018 Inactive hydrocodone 5 mg-acetaminophen 325 mg tablet RxNorm: 220650 1-1.5 Tablet(s) PO QID as needed 09/11/2018 10/08/2018 Inactive phentermine 37.5 mg tablet RxNorm: 398298 1 Tablet(s) PO daily 08/29/2018 11/26/2018 Inactive cyclobenzaprine 5 mg tablet RxNorm: 300858 TAKE ONE TABLET BY MOUTH THREE TIMES DAILY NEEDED FOR MUSCLE SPASM 08/27/2018 11/11/2018 Inactive hydrocodone 5 mg-acetaminophen 325 mg tablet RxNorm: 051424 1-1.5 Tablet(s) PO QID as needed 08/14/2018 09/10/2018 Inactive Lexapro 10 mg tablet RxNorm: 430950 1 Tablet(s) PO daily 07/18/2018 08/16/2018 Inactive diazepam 10 mg tablet RxNorm: 018065 1 Tablet(s) PO TID as needed anxiety 07/11/2018 07/14/2018 Inactive Zorvolex 35 mg capsule RxNorm: 5917970 1 Capsule(s) PO TID 06/18/2018 No Stop Date Active hydrocodone 5 mg-acetaminophen 325 mg tablet RxNorm: 703709 1-1.5 Tablet(s) PO QID as needed 06/18/2018 07/17/2018 Inactive cyclobenzaprine 5 mg tablet RxNorm: 441997 TAKE ONE TABLET BY MOUTH THREE TIMES DAILY NEEDED FOR MUSCLE SPASM 06/04/2018 08/26/2018 Inactive hydrocodone 5 mg-acetaminophen 325 mg tablet RxNorm: 902557 1-1.5 Tablet(s) PO QID as needed 05/26/2018 06/17/2018 Inactive cyclobenzaprine 5 mg tablet RxNorm: 829901 TAKE ONE TABLET BY MOUTH THREE TIMES DAILY NEEDED FOR MUSCLE SPASM 05/07/2018 06/03/2018 Inactive ibuprofen 800 mg tablet RxNorm: 290092 TAKE ONE TABLET BY MOUTH THREE TIMES DAILY NEEDED 04/28/2018 No Stop Date Active hydrocodone 5 mg-acetaminophen 325 mg tablet RxNorm: 544428 1-1.5 Tablet(s) PO QID as needed 04/28/2018 05/25/2018 Inactive diazepam 10 mg tablet RxNorm: 942819 1 Tablet(s) PO TID as needed anxiety 04/22/2018 06/19/2018 Inactive hydrocodone 5 mg-acetaminophen 325 mg tablet RxNorm: 408061 1-1.5 Tablet(s) PO QID as needed 03/25/2018 04/23/2018 Inactive cyclobenzaprine 5 mg tablet RxNorm: 757203 TAKE ONE TABLET BY MOUTH THREE TIMES DAILY NEEDED FOR MUSCLE SPASM 03/17/2018 05/06/2018 Inactive hydrocodone 5 mg-acetaminophen 325 mg tablet RxNorm: 287839 1-1.5 Tablet(s) PO QID as needed 03/02/2018 03/24/2018 Inactive phentermine 37.5 mg tablet RxNorm: 300543 1 Tablet(s) PO daily 03/02/2018 08/28/2018 Inactive hydrocodone 5 mg-acetaminophen 325 mg tablet RxNorm: 571973 1-1.5 Tablet(s) PO QID as needed 02/03/2018 03/01/2018 Inactive diazepam 10 mg tablet RxNorm: 670667 1 Tablet(s) PO TID as needed anxiety 01/01/2018 02/28/2018 Inactive hydrocodone 5 mg-acetaminophen 325 mg tablet RxNorm: 504648 1-1.5 Tablet(s) PO QID as needed 12/09/2017 01/07/2018 Inactive ibuprofen 800 mg tablet RxNorm: 062080 1 Tablet(s) PO TID as needed 12/09/2017 01/07/2018 Inactive Lyrica 100 mg capsule RxNorm: 963316 1 Capsule(s) PO BID as needed 12/09/2017 03/07/2018 Inactive cyclobenzaprine 5 mg tablet RxNorm: 688438 TAKE ONE TABLET BY MOUTH THREE TIMES DAILY NEEDED FOR MUSCLE SPASM 12/03/2017 03/16/2018 Inactive hydrocodone 5 mg-acetaminophen 325 mg tablet RxNorm: 765103 1-1.5 Tablet(s) PO QID as needed 10/21/2017 11/19/2017 Inactive hydrocodone 7.5 mg-acetaminophen 325 mg tablet RxNorm: 433675 1 Tablet(s) PO QID as needed 09/26/2017 10/20/2017 Inactive phentermine 37.5 mg tablet RxNorm: 628014 1 Tablet(s) PO daily 09/26/2017 10/01/2017 Inactive Lyrica 100 mg capsule RxNorm: 644322 1 Capsule(s) PO BID as needed 09/12/2017 12/08/2017 Inactive hydrocodone 7.5 mg-acetaminophen 325 mg tablet RxNorm: 345597 1 Tablet(s) PO QID as needed 08/27/2017 09/23/2017 Inactive Belviq XR 20 mg tablet,extended release RxNorm: 4410750 1 Tablet(s) PO daily 08/27/2017 09/23/2017 Inactive cyclobenzaprine 5 mg tablet RxNorm: 602366 1 Tablet(s) PO TID as needed muscle spasms 08/19/2017 08/23/2017 Inactive hydrocodone 7.5 mg-acetaminophen 325 mg tablet RxNorm: 142465 1 Tablet(s) PO QID as needed 08/02/2017 08/26/2017 Inactive hydrocodone 7.5 mg-acetaminophen 325 mg tablet RxNorm: 000050 1 Tablet(s) PO TID as needed 08/02/2017 08/01/2017 Inactive diazepam 10 mg tablet RxNorm: 153163 1 Tablet(s) PO TID as needed anxiety 07/24/2017 02/02/2018 Inactive hydrocodone 7.5 mg-acetaminophen 325 mg tablet RxNorm: 862551 1 Tablet(s) PO TID as needed 07/11/2017 08/01/2017 Inactive Lyrica 100 mg capsule RxNorm: 863937 1 Capsule(s) PO BID as needed 06/24/2017 09/20/2017 Inactive hydrocodone 5 mg-acetaminophen 325 mg tablet RxNorm: 407923 1 Tablet(s) PO TID 06/24/2017 07/30/2017 Inactive prednisone 10 mg tablet RxNorm: 909298 1 Tablet(s) PO daily 06/18/2017 06/17/2017 Inactive 6-5-4-3-2-1 then stop prednisone 10 mg tablet RxNorm: 049582 1 Tablet(s) PO daily 06/18/2017 08/25/2017 Inactive 6-5-4-3-2-1 then stop Bactrim DS 800 mg-160 mg tablet RxNorm: 366146 1 Tablet(s) PO BID 06/11/2017 06/14/2017 Inactive Bactrim DS 800 mg-160 mg tablet RxNorm: 526832 1 Tablet(s) PO BID 06/03/2017 06/10/2017 Inactive mupirocin 2 % topical ointment RxNorm: 594399 1 Application TOP BID 06/03/2017 08/25/2017 Inactive Lyrica 100 mg capsule RxNorm: 015101 1 Capsule(s) PO BID as needed 05/27/2017 06/23/2017 Inactive Keflex 500 mg capsule RxNorm: 705800 1 Capsule(s) PO TID 05/27/2017 06/02/2017 Inactive Lexapro 10 mg tablet RxNorm: 179434 1 Tablet(s) PO daily 05/27/2017 08/25/2017 Inactive hydrocodone 5 mg-acetaminophen 325 mg tablet RxNorm: 456443 1 Tablet(s) PO TID 05/27/2017 06/23/2017 Inactive hydrocodone 7.5 mg-acetaminophen 325 mg tablet RxNorm: 309379 1 Tablet(s) PO TID as needed 05/13/2017 05/25/2017 Inactive hydrocodone 7.5 mg-acetaminophen 325 mg tablet RxNorm: 030246 1 Tablet(s) PO TID as needed 05/13/2017 05/12/2017 Inactive cyclobenzaprine 5 mg tablet RxNorm: 230369 TAKE ONE TABLET BY MOUTH THREE TIMES DAILY NEEDED FOR MUSCLE SPASM 05/01/2017 05/05/2017 Inactive hydrocodone 5 mg-acetaminophen 325 mg tablet RxNorm: 642487 1 Tablet(s) PO TID as needed 04/24/2017 05/12/2017 Inactive cyclobenzaprine 5 mg tablet RxNorm: 111426 1 Tablet(s) PO TID as needed muscle spasms 04/24/2017 04/28/2017 Inactive diazepam 10 mg tablet RxNorm: 816115 1 Tablet(s) PO TID as needed anxiety 02/22/2017 04/19/2017 Inactive norethindrone acetate 1 mg-ethinyl estradiol 20 mcg tablet RxNorm: 7368527 1 Tablet(s) PO daily 12/18/2016 07/15/2017 Inactive EEMT 1.25 mg-2.5 mg tablet RxNorm: 975974 1 Tablet(s) PO daily 12/06/2016 03/05/2017 Inactive EEMT 1.25 mg-2.5 mg tablet RxNorm: 239484 1 Tablet(s) PO daily 12/06/2016 12/05/2016 Inactive Lexapro 10 mg tablet RxNorm: 824772 1 Tablet(s) PO daily 12/06/2016 05/04/2017 Inactive diazepam 10 mg tablet RxNorm: 656584 1 Tablet(s) PO TID 11/09/2016 12/07/2016 Inactive phentermine 37.5 mg tablet RxNorm: 431807 1 Tablet(s) PO daily 10/25/2016 08/23/2017 Inactive EEMT 1.25 mg-2.5 mg tablet RxNorm: 446128 1 Tablet(s) PO daily 10/25/2016 12/05/2016 Inactive phentermine 37.5 mg tablet RxNorm: 620263 1 Tablet(s) PO daily 09/20/2016 10/24/2016 Inactive Lexapro 10 mg tablet RxNorm: 925129 1 Tablet(s) PO daily 07/10/2016 12/05/2016 Inactive Lexapro 10 mg tablet RxNorm: 233613 1 Tablet(s) PO daily 06/12/2016 07/09/2016 Inactive norethindrone acetate 1 mg-ethinyl estradiol 20 mcg tablet RxNorm: 0305208 1 Tablet(s) PO daily 06/12/2016 12/17/2016 Inactive hydrocodone 10 mg-acetaminophen 325 mg tablet RxNorm: 173439 1 Tablet(s) PO TID No Start Date 05/12/2017 Inactive phentermine 37.5 mg tablet RxNorm: 857485 1 Tablet(s) PO daily No Start Date 09/19/2016 Inactive norethindrone acetate 1 mg-ethinyl estradiol 20 mcg tablet RxNorm: 5505257 1 Tablet(s) PO daily No Start Date 06/11/2016 Inactive EEMT 1.25 mg-2.5 mg tablet RxNorm: 672474 1 Tablet(s) PO daily No Start Date [...] nourished 05/27/2017 None Full Exam - General 1995 Eyes conjunctiva/eyelids Overall: conjunctiva clear 05/27/2017 None Full Exam - General 1994 Eyes conjunctiva/eyelids Overall: eyelids normal 05/27/2017 None Full Exam - General 1994 Ears/Nose/Throat lips/teeth/gingiva Overall: benign lips 05/27/2017 None Full Exam - General 1995 Ears/Nose/Throat oral cavity/pharynx/larynx Overall: oral mucosa clear 05/27/2017 None Full Exam - General 1995 Ears/Nose/Throat [...] 1: 142/72 Code: 8480-6 BMI: 30.9 Code: 28923-7 Heart Rate 1: 82 bpm Height: 5'2" SpO2: 98% Weight: 169 lbs 12/08/2018 Blood Pressure 1: 130/74 Code: 8480-6 BMI: 30.7 Code: 95298-1 Heart Rate 1: 82 bpm Height: 5'2" SpO2: 97% Weight: 168 lbs 11/27/2018 Blood Pressure 1: 130/74 Code: 8480-6 Weight: 168 lbs 10/09/2018 Blood Pressure 1: 128/74 Code: 8480-6 BMI: 31.1 Code: 91170-9 Heart Rate 1: 81 bpm Height: 5'2" SpO2: 97% Weight: 170 lbs 08/29/2018 Blood Pressure 1: 120/70 Code: 8480-6 BMI: 31.1 Code: 85731-1 Heart Rate 1: 65 bpm Height: 5'2" Weight: 170 lbs 07/18/2018 Blood Pressure 1: 126/88 Code: 8480-6 Heart Rate 1: 78 bpm Height: SpO2: 97% Weight: 07/16/2018 Blood Pressure 1: 130/78 Code: 8480-6 Heart Rate 1: 84 bpm Weight: 172 lbs 06/18/2018 Blood Pressure 1: 128/80 Code: 8480-6 BMI: 31.1 Code: 57156-3 Heart Rate 1: 80 bpm Height: 5'2" SpO2: 97% Weight: 170 lbs 02/28/2018 Blood Pressure 1: 120/78 Code: 8480-6 BMI: 31.6 Code: 42028-6 Heart Rate 1: 66 bpm Height: 5'2" SpO2: 98% Weight: 173 lbs 12/09/2017 Blood Pressure 1: 116/74 Code: 8480-6 BMI: 31.5 Code: 48948-9 Heart Rate 1: 74 bpm Height: 5'2" SpO2: 95% Weight: 172 lbs 10/21/2017 Blood Pressure 1: 136/82 Code: 8480-6 BMI: 30.4 Code: 32605-7 Heart Rate 1: 79 bpm Height: 5'2" SpO2: 97% Weight: 166 lbs 09/26/2017 Blood Pressure 1: 122/80 Code: 8480-6 BMI: 30.4 Code: 52260-7 Heart Rate 1: 63 bpm Height: 5'2" SpO2: 98% Weight: 166 lbs 08/27/2017 Blood Pressure 1: 132/70 Code: 8480-6 BMI: 30.7 Code: 51270-5 Heart Rate 1: 89 bpm Height: 5'2" SpO2: 98% Weight: 168 lbs 05/27/2017 Blood Pressure 1: 132/72 Code: 8480-6 BMI: 28.9 Code: 68497-6 Heart Rate 1: 72 bpm Height: 5'2" SpO2: 98% Weight: 158 lbs 04/24/2017 Blood Pressure 1: 140/76 Code: 8480-6 BMI: 29.3 Code: 90253-1 Heart Rate 1: 77 bpm Height: 5'2" SpO2: 97% Weight: 160 lbs 03/27/2017 Blood Pressure 1: 128/74 Code: 8480-6 BMI: 29.1 Code: 04387-4 Heart Rate 1: 74 bpm Height: 5'2" SpO2: 98% Temperature: 36.8 (C) / 98.3 (F) Weight: 159 lbs 10/25/2016 Blood Pressure 1: 116/74 Code: 8480-6 BMI: 28.9 Code: 83904-2 Heart Rate 1: 68 bpm Height: 5'2" SpO2: 99% Weight: 158 lbs 09/20/2016 Blood Pressure 1: 116/70 Code: 8480-6 Heart Rate 1: 72 bpm Weight: 150 lbs 08/24/2016 Blood Pressure 1: 118/62 Code: 8480-6 BMI: 27.6 Code: 55764-7 Heart Rate 1: 63 bpm Height: 5'2" SpO2: 99% Weight: 151 lbs 06/12/2016 Blood Pressure 1: 122/74 Code: 8480-6 BMI: 26.9 Code: 43209-0 Heart Rate 1: 52 bpm Height: 5'2" [...] data Encounters Encounter Performer Location Codes Date 02159 EST. 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 PATIENT, LEVEL III Diagnosis: Chronic pain syndrome[ICD10: G89.4] Veda Jama MD, [facility] CPT- 4: 72906 12/08/2018 ([id number]) Miscellaneous no charge Diagnosis: Overweight[ICD10: E66.3] Juju Jama MD, [facility] CPT-4: 98364 11/27/2018 [id number] EST. PATIENT, LEVEL III Diagnosis: Chronic pain syndrome[ICD10: G89.4] Diagnosis: Menopausal and female climacteric states[ICD10: N95.1] Veda Jama MD, [facility] CPT-4: 02773 10/09/2018 ([id number]) Miscellaneous no charge Diagnosis: Overweight[ICD10: E66.3] Juju Jama MD, [facility] CPT-4: 40408 08/29/2018 76045 EST. PATIENT, LEVEL III Diagnosis: Generalized anxiety disorder[ICD10: F41.1] Diagnosis: Major depressive disorder, single episode, moderate[ICD10: F32.1] Veda Jama MD, [facility] CPT-4: 92654 07/18/2018 ([id number]) Miscellaneous no charge Diagnosis: Overweight[ICD10: E66.3] Juju Jama MD, [facility] CPT-4: 85335 07/16/2018 27785 EST. PATIENT, LEVEL III Diagnosis: Chronic pain syndrome[ICD10: G89.4] Diagnosis: Overweight[ICD10: E66.3] Veda Jama MD, [facility] CPT-4: 40591 06/18/2018 34679 EST. PATIENT, LEVEL IV Diagnosis: Chronic pain syndrome[ICD10: G89.4] Diagnosis: Overweight[ICD10: E66.3] Veda Jama MD, [facility] CPT-4: 74180 02/28/2018 24786 EST. PATIENT, LEVEL III Diagnosis: Chronic pain syndrome[ICD10: G89.4] Diagnosis: Overweight[ICD10: E66.3] Veda Jama MD, [facility] CPT-4: 71847 12/09/2017 16235 EST. PATIENT, LEVEL III Diagnosis: Chronic pain syndrome[ICD10: G89.4] Diagnosis: Overweight[ICD10: E66.3] Veda Jama MD, [facility] CPT-4: 02549 10/21/2017 ([id number]) Miscellaneous no charge Diagnosis: Overweight[ICD10: E66.3] Juju Jama MD, [facility] CPT-4: 76784 09/26/2017 08911 EST. PATIENT, LEVEL III Diagnosis: Chronic pain syndrome[ICD10: G89.4] Diagnosis: Overweight[ICD10: E66.3] Veda Jama MD, [facility] CPT-4: 17714 08/27/2017 08935 EST. PATIENT, LEVEL III Diagnosis: Chronic pain syndrome[ICD10: G89.4] Diagnosis: Generalized anxiety disorder[ICD10: F41.1] Diagnosis: Major depressive disorder, single episode, moderate[ICD10: F32.1] Diagnosis: Cellulitis of right lower limb[ICD10: L03.115] Veda Jama MD, [facility] CPT-4: 69326 05/27/2017 ([id number]) 40808 EST. PATIENT, LEVEL IV Diagnosis: Generalized anxiety disorder[ICD10: F41.1] Diagnosis: Major depressive disorder, single episode, moderate[ICD10: F32.1] Diagnosis: Menopausal and female climacteric states[ICD10: N95.1] Diagnosis: Chronic pain syndrome[ICD10: G89.4] Veda Jama MD, [facility] CPT- 4: 02214 04/24/2017 ([id number]) PREV VISIT EST AGE 18-39 Diagnosis: Encounter for gynecological examination (general) (routine) without abnormal findings[ICD10: Z01.419] [facility] CPT-4: 39311 03/27/2017 ([id number]) 93138 EST. PATIENT, LEVEL III Diagnosis: Overweight[ICD10: E66.3] [facility] CPT-4: 14105 10/25/2016 ([id number]) Miscellaneous no charge Diagnosis: Overweight[ICD10: E66.3] [facility] CPT-4: 09643 09/20/2016 14303 EST. PATIENT, LEVEL IV Diagnosis: Other fatigue[ICD10: R53.83] Diagnosis: Overweight[ICD10: E66.3] Diagnosis: Generalized anxiety disorder[ICD10: F41.1] [facility] CPT-4: 79684 08/24/2016 ([id number]) OFFICE VISIT, NEW - LEVEL 4 Diagnosis: Generalized anxiety disorder[ICD10: F41.1] Diagnosis: Major depressive disorder, single episode, moderate[ICD10: F32.1] Veda Jama MD, [facility] CPT-4: 92430 06/12/2016 Plan of Care Planned Activity Notes Codes Status Date Visit Plan: Princess haas - ongoing - will send RX - pt is to notify clinic if symptoms do not improve, if they worsen, or with any changes, questions, or concerns. Will refer to Dr. Bassett if symptoms persist. 02/23/2019 Appointment: Veda Duenas WPtel: [address] [place], [place] [address] (30 min) Complex 02/23/2019 Patient Education: Patient Medication Summary Completed 02/23/2019 Visit Plan: Chronic Pain Syndrome - pt has chronic pain - has been maintained on current medications, has not sought out other medications, only uses PRN pain medications as directed, and understands the consequences of over-medication. 12/08/2018 [phone] [facility] ([facility] 12/08/2018 Patient Education: Patient [...] concerns. 10/09/2018 Appointment: Veda Duenas WPtel: [phone] [facility] (15 min) Moderate 10/09/2018 Patient Education: [...] this patient. 07/18/2018 App[facility]ment: [facility] [phone] [facility] (15 min) Moderate 07/18/2018 Patient Education: Patient [...] weight check. 06/18/2018 Appointment: Veda Duenas WPtel: [facility] (15 min) Moderate 06/18/2018 Patient Education: [...] weight check. 02/28/2018 Appointment: Veda Duenas WPtel: [facility] (30 min) Complex 02/28/2018 Patient Education: Patient Medication Summary Completed 02/28/2018 Patient Education: Obesity Completed 02/28/2018 Appointment: Veda Duenastel: [address] [place], [place] [phone] (15 min) Moderate 02/27/2018 Visit Plan: Chronic [...] for weight check. 12/09/2017 Appointment: Veda Duenastel: [facility] (15 min) Moderate 12/09/2017 Patient Education: [...] weight check. 10/21/2017 [facility]ment: [facility] [phone] [facility] (15 min) Moderate 10/21/2017 Patient Education: Patient Medication Summary Completed 10/21/2017 Patient Education: Obesity Completed 10/21/2017 Appointment: Nurse Visit 09/26/2017 Patient Education: Patient Medication Summary Completed 09/26/2017 [facility]ment: [facility] [phone] [facility] (30 min) Complex 08/30/2017 Visit Plan: Chronic [...] discharge. 05/27/2017 App[facility]ment: [facility] [phone] [facility] ([facility] min) Complex 05/27/2017 Patient Education: Patient [...] RX. 04/24/2017 App[facility]ment: [facility] [phone] [facility] ([facility] min) Complex 04/24/2017 Patient Education: Patient [...] per pharmacy. 03/27/2017 Appointment: Veda Duenas WPtel: [facility] [facility] 03/27/2017 Patient Education: Patient Medication Summary Completed 03/27/2017 Care Plan: BMI Above normal followup SELF-MGMT EDUC & TRAIN 1 PT Pending 11/07/2016 Visit Plan: Obesity - chronic issue with this patient. The pt has been counseled about diet changes, calorie restriction, and need to exercise. Pt will RTC in one month for weight check. 10/25/2016 Appointment: Veda Duenas WPtel: [facility] (15 min) Moderate 10/25/2016 Patient Education: [...] weight check. 08/24/2016 Appointment: Rad[facility] Mcgowan [phone] [place] (30 min) Complex 08/24/2016 Appointment: Radha Mcgowan WPtel: [address] [place], [place] [phone] (30 min) Complex 08/24/2016 Appointment: Radha Mcgowan WPtel: [address] [place], [place] [phone] (30 min) Complex 08/24/2016 Patient Education: Patient [...] this patient. 06/12/2016 Appointment: [facility] Mcgowan [facility] [phone] [phone] New Patient 06/12/2016 Patient Education: Patient Medication [...]
--- OUTSIDE RECORDS SUMMARY | 2019-07-01 06:25 | XMS REPORT | CCD ---
Author Author [facility] Address [address] [place] [address] Phone Care Team Providers Care Bakery Manager Name Role Phone PP Unavailable CCM Unavailable Summary Purpose Interface Exchange Insurance Providers Payer name Policy type / Coverage type Covered green party ID Effective Begin Date Effective End Date [employer] [id number] 2018 Unknown Family history Father Diagnosis Age At Onset Diabetes Unknown Hyperlipidemia Unknown Hypertension Unknown Heart Attack Unknown Social History Social History Element Codes Description Effective Dates Marital status Unknown CJ 06/12/2016 Number of children Unknown 3 06/12/[address]: 456244733 Never smoker 06/12/[address]: 962086199 Never drinks alcohol 06/12/2016 Allergies, Adverse Reactions, [...] hydrocodone 5 mg-acetaminophen 325 mg tablet RxNorm: 315420 1-1.5 Tablet(s) PO QID as needed 02/23/2019 03/24/2019 Active prednisolone 15 mg/5 mL oral solution RxNorm: 188189 5 Milliliter(s) PO BID 02/23/2019 02/27/2019 Inactive valacyclovir 1 gram tablet RxNorm: 179508 1 Tablet(s) PO TID 02/23/2019 03/01/2019 Inactive hydrocodone 5 mg-acetaminophen 325 mg tablet RxNorm: 761579 1-1.5 Tablet(s) PO QID as needed 01/28/2019 02/26/2019 Inactive hydrocodone 5 mg-acetaminophen 325 mg tablet RxNorm: 823852 1-1.5 Tablet(s) PO QID as needed 01/01/2019 01/27/2019 Inactive cyclobenzaprine 5 mg tablet RxNorm: 055934 TAKE ONE TABLET BY MOUTH THREE TIMES DAILY NEEDED FOR MUSCLE SPASM 12/16/2018 No Stop Date Active phentermine 37.5 mg tablet RxNorm: 326249 1 Tablet(s) PO daily 11/27/2018 No Stop Date Active Lexapro 10 mg tablet RxNorm: 824670 TAKE 1 TABLET BY MOUTH ONCE DAILY 11/26/2018 No Stop Date Active cyclobenzaprine 5 mg tablet RxNorm: 638768 TAKE ONE TABLET BY MOUTH THREE TIMES DAILY NEEDED FOR MUSCLE SPASM 11/12/2018 12/15/2018 Inactive hydrocodone 5 mg-acetaminophen 325 mg tablet RxNorm: 513721 1-1.5 Tablet(s) PO QID as needed 11/06/2018 12/05/2018 Inactive Lyrica 100 mg capsule RxNorm: 695221 1 Capsule(s) PO BID as needed 10/31/2018 01/28/2019 Inactive pravastatin 20 mg tablet RxNorm: 177945 1 Tablet(s) PO QPM 10/28/2018 02/24/2019 Inactive pravastatin 20 mg tablet RxNorm: 365222 1 Tablet(s) PO QPM 10/28/2018 10/27/2018 Inactive EEMT 1.25 mg-2.5 mg tablet RxNorm: 686404 1 Tablet(s) PO daily 10/09/2018 01/06/2019 Inactive norethindrone acetate 1 mg-ethinyl estradiol 20 mcg tablet RxNorm: 7451391 1 Tablet(s) PO daily 10/09/2018 10/03/2019 Active hydrocodone 5 mg-acetaminophen 325 mg tablet RxNorm: 313840 1-1.5 Tablet(s) PO QID as needed 10/09/2018 11/05/2018 Inactive hydrocodone 5 mg-acetaminophen 325 mg tablet RxNorm: 152397 1-1.5 Tablet(s) PO QID as needed 09/11/2018 10/08/2018 Inactive phentermine 37.5 mg tablet RxNorm: 563332 1 Tablet(s) PO daily 08/29/2018 11/26/2018 Inactive cyclobenzaprine 5 mg tablet RxNorm: 957276 TAKE ONE TABLET BY MOUTH THREE TIMES DAILY NEEDED FOR MUSCLE SPASM 08/27/2018 11/11/2018 Inactive hydrocodone 5 mg-acetaminophen 325 mg tablet RxNorm: 088130 1-1.5 Tablet(s) PO QID as needed 08/14/2018 09/10/2018 Inactive Lexapro 10 mg tablet RxNorm: 201629 1 Tablet(s) PO daily 07/18/2018 08/16/2018 Inactive diazepam 10 mg tablet RxNorm: 397411 1 Tablet(s) PO TID as needed anxiety 07/11/2018 07/14/2018 Inactive Zorvolex 35 mg capsule RxNorm: 4954568 1 Capsule(s) PO TID 06/18/2018 No Stop Date Active hydrocodone 5 mg-acetaminophen 325 mg tablet RxNorm: 639643 1-1.5 Tablet(s) PO QID as needed 06/18/2018 07/17/2018 Inactive cyclobenzaprine 5 mg tablet RxNorm: 228343 TAKE ONE TABLET BY MOUTH THREE TIMES DAILY NEEDED FOR MUSCLE SPASM 06/04/2018 08/26/2018 Inactive hydrocodone 5 mg-acetaminophen 325 mg tablet RxNorm: 044606 1-1.5 Tablet(s) PO QID as needed 05/26/2018 06/17/2018 Inactive cyclobenzaprine 5 mg tablet RxNorm: 786783 TAKE ONE TABLET BY MOUTH THREE TIMES DAILY NEEDED FOR MUSCLE SPASM 05/07/2018 06/03/2018 Inactive ibuprofen 800 mg tablet RxNorm: 536517 TAKE ONE TABLET BY MOUTH THREE TIMES DAILY NEEDED 04/28/2018 No Stop Date Active hydrocodone 5 mg-acetaminophen 325 mg tablet RxNorm: 730214 1-1.5 Tablet(s) PO QID as needed 04/28/2018 05/25/2018 Inactive diazepam 10 mg tablet RxNorm: 822406 1 Tablet(s) PO TID as needed anxiety 04/22/2018 06/19/2018 Inactive hydrocodone 5 mg-acetaminophen 325 mg tablet RxNorm: 628839 1-1.5 Tablet(s) PO QID as needed 03/25/2018 04/23/2018 Inactive cyclobenzaprine 5 mg tablet RxNorm: 622321 TAKE ONE TABLET BY MOUTH THREE TIMES DAILY NEEDED FOR MUSCLE SPASM 03/17/2018 05/06/2018 Inactive hydrocodone 5 mg-acetaminophen 325 mg tablet RxNorm: 378375 1-1.5 Tablet(s) PO QID as needed 03/02/2018 03/24/2018 Inactive phentermine 37.5 mg tablet RxNorm: 741345 1 Tablet(s) PO daily 03/02/2018 08/28/2018 Inactive hydrocodone 5 mg-acetaminophen 325 mg tablet RxNorm: 343722 1-1.5 Tablet(s) PO QID as needed 02/03/2018 03/01/2018 Inactive diazepam 10 mg tablet RxNorm: 318642 1 Tablet(s) PO TID as needed anxiety 01/01/2018 02/28/2018 Inactive hydrocodone 5 mg-acetaminophen 325 mg tablet RxNorm: 448614 1-1.5 Tablet(s) PO QID as needed 12/09/2017 01/07/2018 Inactive ibuprofen 800 mg tablet RxNorm: 945213 1 Tablet(s) PO TID as needed 12/09/2017 01/07/2018 Inactive Lyrica 100 mg capsule RxNorm: 618616 1 Capsule(s) PO BID as needed 12/09/2017 03/07/2018 Inactive cyclobenzaprine 5 mg tablet RxNorm: 328979 TAKE ONE TABLET BY MOUTH THREE TIMES DAILY NEEDED FOR MUSCLE SPASM 12/03/2017 03/16/2018 Inactive hydrocodone 5 mg-acetaminophen 325 mg tablet RxNorm: 678631 1-1.5 Tablet(s) PO QID as needed 10/21/2017 11/19/2017 Inactive hydrocodone 7.5 mg-acetaminophen 325 mg tablet RxNorm: 245124 1 Tablet(s) PO QID as needed 09/26/2017 10/20/2017 Inactive phentermine 37.5 mg tablet RxNorm: 145794 1 Tablet(s) PO daily 09/26/2017 10/01/2017 Inactive Lyrica 100 mg capsule RxNorm: 711837 1 Capsule(s) PO BID as needed 09/12/2017 12/08/2017 Inactive hydrocodone 7.5 mg-acetaminophen 325 mg tablet RxNorm: 545695 1 Tablet(s) PO QID as needed 08/27/2017 09/23/2017 Inactive Belviq XR 20 mg tablet,extended release RxNorm: 1230028 1 Tablet(s) PO daily 08/27/2017 09/23/2017 Inactive cyclobenzaprine 5 mg tablet RxNorm: 585494 1 Tablet(s) PO TID as needed muscle spasms 08/19/2017 08/23/2017 Inactive hydrocodone 7.5 mg-acetaminophen 325 mg tablet RxNorm: 939827 1 Tablet(s) PO QID as needed 08/02/2017 08/26/2017 Inactive hydrocodone 7.5 mg-acetaminophen 325 mg tablet RxNorm: 612263 1 Tablet(s) PO TID as needed 08/02/2017 08/01/2017 Inactive diazepam 10 mg tablet RxNorm: 255667 1 Tablet(s) PO TID as needed anxiety 07/24/2017 02/02/2018 Inactive hydrocodone 7.5 mg-acetaminophen 325 mg tablet RxNorm: 083284 1 Tablet(s) PO TID as needed 07/11/2017 08/01/2017 Inactive Lyrica 100 mg capsule RxNorm: 451749 1 Capsule(s) PO BID as needed 06/24/2017 09/20/2017 Inactive hydrocodone 5 mg-acetaminophen 325 mg tablet RxNorm: 262722 1 Tablet(s) PO TID 06/24/2017 07/30/2017 Inactive prednisone 10 mg tablet RxNorm: 860241 1 Tablet(s) PO daily 06/18/2017 06/17/2017 Inactive 6-5-4-3-2-1 then stop prednisone 10 mg tablet RxNorm: 795492 1 Tablet(s) PO daily 06/18/2017 08/25/2017 Inactive 6-5-4-3-2-1 then stop Bactrim DS 800 mg-160 mg tablet RxNorm: 514933 1 Tablet(s) PO BID 06/11/2017 06/14/2017 Inactive Bactrim DS 800 mg-160 mg tablet RxNorm: 639608 1 Tablet(s) PO BID 06/03/2017 06/10/2017 Inactive mupirocin 2 % topical ointment RxNorm: 402020 1 Application TOP BID 06/03/2017 08/25/2017 Inactive Lyrica 100 mg capsule RxNorm: 507777 1 Capsule(s) PO BID as needed 05/27/2017 06/23/2017 Inactive Keflex 500 mg capsule RxNorm: 821872 1 Capsule(s) PO TID 05/27/2017 06/02/2017 Inactive Lexapro 10 mg tablet RxNorm: 539602 1 Tablet(s) PO daily 05/27/2017 08/25/2017 Inactive hydrocodone 5 mg-acetaminophen 325 mg tablet RxNorm: 886277 1 Tablet(s) PO TID 05/27/2017 06/23/2017 Inactive hydrocodone 7.5 mg-acetaminophen 325 mg tablet RxNorm: 224098 1 Tablet(s) PO TID as needed 05/13/2017 05/25/2017 Inactive hydrocodone 7.5 mg-acetaminophen 325 mg tablet RxNorm: 785558 1 Tablet(s) PO TID as needed 05/13/2017 05/12/2017 Inactive cyclobenzaprine 5 mg tablet RxNorm: 869106 TAKE ONE TABLET BY MOUTH THREE TIMES DAILY NEEDED FOR MUSCLE SPASM 05/01/2017 05/05/2017 Inactive hydrocodone 5 mg-acetaminophen 325 mg tablet RxNorm: 700176 1 Tablet(s) PO TID as needed 04/24/2017 05/12/2017 Inactive cyclobenzaprine 5 mg tablet RxNorm: 331768 1 Tablet(s) PO TID as needed muscle spasms 04/24/2017 04/28/2017 Inactive diazepam 10 mg tablet RxNorm: 013075 1 Tablet(s) PO TID as needed anxiety 02/22/2017 04/19/2017 Inactive norethindrone acetate 1 mg-ethinyl estradiol 20 mcg tablet RxNorm: 8632643 1 Tablet(s) PO daily 12/18/2016 07/15/2017 Inactive EEMT 1.25 mg-2.5 mg tablet RxNorm: 623784 1 Tablet(s) PO daily 12/06/2016 03/05/2017 Inactive EEMT 1.25 mg-2.5 mg tablet RxNorm: 111091 1 Tablet(s) PO daily 12/06/2016 12/05/2016 Inactive Lexapro 10 mg tablet RxNorm: 872995 1 Tablet(s) PO daily 12/06/2016 05/04/2017 Inactive diazepam 10 mg tablet RxNorm: 827724 1 Tablet(s) PO TID 11/09/2016 12/07/2016 Inactive phentermine 37.5 mg tablet RxNorm: 187251 1 Tablet(s) PO daily 10/25/2016 08/23/2017 Inactive EEMT 1.25 mg-2.5 mg tablet RxNorm: 210225 1 Tablet(s) PO daily 10/25/2016 12/05/2016 Inactive phentermine 37.5 mg tablet RxNorm: 951676 1 Tablet(s) PO daily 09/20/2016 10/24/2016 Inactive Lexapro 10 mg tablet RxNorm: 518781 1 Tablet(s) PO daily 07/10/2016 12/05/2016 Inactive Lexapro 10 mg tablet RxNorm: 605687 1 Tablet(s) PO daily 06/12/2016 07/09/2016 Inactive norethindrone acetate 1 mg-ethinyl estradiol 20 mcg tablet RxNorm: 8675919 1 Tablet(s) PO daily 06/12/2016 12/17/2016 Inactive hydrocodone 10 mg-acetaminophen 325 mg tablet RxNorm: 788916 1 Tablet(s) PO TID No Start Date 05/12/2017 Inactive phentermine 37.5 mg tablet RxNorm: 674463 1 Tablet(s) PO daily No Start Date 09/19/2016 Inactive norethindrone acetate 1 mg-ethinyl estradiol 20 mcg tablet RxNorm: 9920614 1 Tablet(s) PO daily No Start Date 06/11/2016 Inactive EEMT 1.25 mg-2.5 mg tablet RxNorm: 441377 1 Tablet(s) PO daily No Start Date [...] normal 05/27/2017 None Full Exam - General 1995 Ears/Nose/Throat lips/teeth/gingiva Overall: benign lips 05/27/2017 None [...] 1: 142/72 Code: 8480-6 BMI: 30.9 Code: 99223-2 Heart Rate 1: 82 bpm Height: 5'2" SpO2: 98% Weight: 169 lbs 12/08/2018 Blood Pressure 1: 130/74 Code: 8480-6 BMI: 30.7 Code: 51220-4 Heart Rate 1: 82 bpm Height: 5'2" SpO2: 97% Weight: 168 lbs 11/27/2018 Blood Pressure 1: 130/74 Code: 8480-6 Weight: 168 lbs 10/09/2018 Blood Pressure 1: 128/74 Code: 8480-6 BMI: 31.1 Code: 54743-4 Heart Rate 1: 81 bpm Height: 5'2" SpO2: 97% Weight: 170 lbs 08/29/2018 Blood Pressure 1: 120/70 Code: 8480-6 BMI: 31.1 Code: 98112-2 Heart Rate 1: 65 bpm Height: 5'2" Weight: 170 lbs 07/18/2018 Blood Pressure 1: 126/88 Code: 8480-6 Heart Rate 1: 78 bpm Height: SpO2: 97% Weight: 07/16/2018 Blood Pressure 1: 130/78 Code: 8480-6 Heart Rate 1: 84 bpm Weight: 172 lbs 06/18/2018 Blood Pressure 1: 128/80 Code: 8480-6 BMI: 31.1 Code: 16547-5 Heart Rate 1: 80 bpm Height: 5'2" SpO2: 97% Weight: 170 lbs 02/28/2018 Blood Pressure 1: 120/78 Code: 8480-6 BMI: 31.6 Code: 81172-7 Heart Rate 1: 66 bpm Height: 5'2" SpO2: 98% Weight: 173 lbs 12/09/2017 Blood Pressure 1: 116/74 Code: 8480-6 BMI: 31.5 Code: 80552-7 Heart Rate 1: 74 bpm Height: 5'2" SpO2: 95% Weight: 172 lbs 10/21/2017 Blood Pressure 1: 136/82 Code: 8480-6 BMI: 30.4 Code: 10975-4 Heart Rate 1: 79 bpm Height: 5'2" SpO2: 97% Weight: 166 lbs 09/26/2017 Blood Pressure 1: 122/80 Code: 8480-6 BMI: 30.4 Code: 53836-2 Heart Rate 1: 63 bpm Height: 5'2" SpO2: 98% Weight: 166 lbs 08/27/2017 Blood Pressure 1: 132/70 Code: 8480-6 BMI: 30.7 Code: 65471-2 Heart Rate 1: 89 bpm Height: 5'2" SpO2: 98% Weight: 168 lbs 05/27/2017 Blood Pressure 1: 132/72 Code: 8480-6 BMI: 28.9 Code: 49605-8 Heart Rate 1: 72 bpm Height: 5'2" SpO2: 98% Weight: 158 lbs 04/24/2017 Blood Pressure 1: 140/76 Code: 8480-6 BMI: 29.3 Code: 51987-9 Heart Rate 1: 77 bpm Height: 5'2" SpO2: 97% Weight: 160 lbs 03/27/2017 Blood Pressure 1: 128/74 Code: 8480-6 BMI: 29.1 Code: 34272-3 Heart Rate 1: 74 bpm Height: 5'2" SpO2: 98% Temperature: 36.8 (C) / 98.3 (F) Weight: 159 lbs 10/25/2016 Blood Pressure 1: 116/74 Code: 8480-6 BMI: 28.9 Code: 27249-0 Heart Rate 1: 68 bpm Height: 5'2" SpO2: 99% Weight: 158 lbs 09/20/2016 Blood Pressure 1: 116/70 Code: 8480-6 Heart Rate 1: 72 bpm Weight: 150 lbs 08/24/2016 Blood Pressure 1: 118/62 Code: 8480-6 BMI: 27.6 Code: 44204-5 Heart Rate 1: 63 bpm Height: 5'2" SpO2: 99% Weight: 151 lbs 06/12/2016 Blood Pressure 1: 122/74 Code: 8480-6 BMI: 26.9 Code: 48053-3 Heart Rate 1: 52 bpm Height: 5'2" [...] Recurrent oral aphthae[ICD10: K12.0] Veda Jama MD, [facility] CPT- 4: 28182 02/23/2019 06223 EST. PATIENT, LEVEL III Diagnosis: Chronic pain syndrome[ICD10: G89.4] Veda Jama MD, [facility] CPT- 4: 01141 12/08/2018 ([id number]) Miscellaneous no charge Diagnosis: Overweight[ICD10: E66.3] Juju Jama MD, [facility] CPT-4: 51264 11/27/2018 14189 EST. PATIENT, LEVEL III Diagnosis: Chronic pain syndrome[ICD10: G89.4] Diagnosis: Menopausal and female climacteric states[ICD10: N95.1] Veda Jama MD, [facility] CPT-4: 73771 10/09/2018 ([id number]) Miscellaneous no charge Diagnosis: Overweight[ICD10: E66.3] Juju Jama MD, [facility] CPT-4: 03272 08/29/2018 49237 EST. PATIENT, LEVEL III Diagnosis: Generalized anxiety disorder[ICD10: F41.1] Diagnosis: Major depressive disorder, single episode, moderate[ICD10: F32.1] Veda Jama MD, [facility] CPT-4: 46527 07/18/2018 ([id number]) Miscellaneous no charge Diagnosis: Overweight[ICD10: E66.3] Juju Jama MD, [facility] CPT-4: 30902 07/16/2018 90104 EST. PATIENT, LEVEL III Diagnosis: Chronic pain syndrome[ICD10: G89.4] Diagnosis: Overweight[ICD10: E66.3] Veda Jama MD, [facility] CPT-4: 71899 06/18/2018 32716 EST. PATIENT, LEVEL IV Diagnosis: Chronic pain syndrome[ICD10: G89.4] Diagnosis: Overweight[ICD10: E66.3] Veda Jama MD, [facility] CPT-4: 47145 02/28/2018 00307 EST. PATIENT, LEVEL III Diagnosis: Chronic pain syndrome[ICD10: G89.4] Diagnosis: Overweight[ICD10: E66.3] Veda Jama MD, [facility] CPT-4: 53422 12/09/2017 25800 EST. PATIENT, LEVEL III Diagnosis: Chronic pain syndrome[ICD10: G89.4] Diagnosis: Overweight[ICD10: E66.3] Veda Jama MD, [facility] CPT-4: 60971 10/21/2017 ([id number]) Miscellaneous no charge Diagnosis: Overweight[ICD10: E66.3] Juju Jama MD, [facility] CPT-4: 67421 09/26/2017 25831 EST. PATIENT, LEVEL III Diagnosis: Chronic pain syndrome[ICD10: G89.4] Diagnosis: Overweight[ICD10: E66.3] Veda Jama MD, [facility] CPT-4: 94784 08/27/2017 17872 EST. PATIENT, LEVEL III Diagnosis: Chronic pain syndrome[ICD10: G89.4] Diagnosis: Generalized anxiety disorder[ICD10: F41.1] Diagnosis: Major depressive disorder, single episode, moderate[ICD10: F32.1] Diagnosis: Cellulitis of right lower limb[ICD10: L03.115] Veda Jama MD, [facility] CPT-4: 40460 05/27/2017 ([id number]) 44961 EST. PATIENT, LEVEL IV Diagnosis: Generalized anxiety disorder[ICD10: F41.1] Diagnosis: Major depressive disorder, single episode, moderate[ICD10: F32.1] Diagnosis: Menopausal and female climacteric states[ICD10: N95.1] Diagnosis: Chronic pain syndrome[ICD10: G89.4] [facility] CPT- 4: 05795 04/24/2017 ([id number]) PREV VISIT EST AGE 18-39 Diagnosis: Encounter for gynecological examination (general) (routine) without abnormal findings[ICD10: Z01.419] [facility] CPT-4: 41252 03/27/2017 ([id number]) 61239 EST. PATIENT, LEVEL III Diagnosis: Overweight[ICD10: E66.3] [facility] CPT-4: 27141 10/25/2016 ([id number]) Miscellaneous no charge Diagnosis: Overweight[ICD10: E66.3] [facility] CPT-4: 38777 09/20/2016 61776 EST. PATIENT, LEVEL IV Diagnosis: Other fatigue[ICD10: R53.83] Diagnosis: Overweight[ICD10: E66.3] Diagnosis: Generalized anxiety disorder[ICD10: F41.1] [facility] CPT-4: 88148 08/24/2016 ([id number]) OFFICE VISIT, NEW - LEVEL 4 Diagnosis: Generalized anxiety disorder[ICD10: F41.1] Diagnosis: Major depressive disorder, single episode, moderate[ICD10: F32.1] [facility] CPT-4: 27148 06/12/2016 Plan of Care Planned Activity Notes Codes Status Date Visit Plan: Princess haas - ongoing - will send RX - pt is to notify clinic if symptoms do not improve, if they worsen, or with any changes, questions, or concerns. Will refer to Dr. Bassett if symptoms persist. 02/23/2019 Appointment: Veda Duenas WPtel: [address] [place], [place] [phone] (30 min) [facility] 02/23/2019 Patient Education: Patient Medication Summary Completed 02/23/2019 Visit Plan: Chronic Pain Syndrome - pt has chronic pain - has been maintained on current medications, has not sought out other medications, only uses PRN pain medications as directed, and understands the consequences of over-medication. 12/08/2018 [phone] [facility] [facility] 12/08/2018 Patient Education: [...] or concerns. 10/09/2018 App[facility]ment: [phone] [facility] ([facility] min) Moderate 10/09/2018 Patient Education: Patient [...] this patient. 07/18/2018 App[facility]ment[facility] [phone] [facility] ([facility] min) Moderate 07/18/2018 Patient Education: [...] month for weight check. 06/18/2018 Appointment: Veda Duenastel: [facility] (15 min) Moderate 06/18/2018 Patient Education: [...] weight check. 02/28/2018 Appointment: Veda Duenas WPtel: [facility] (30 min) Complex 02/28/2018 Patient Education: Patient Medication Summary Completed 02/28/2018 Patient Education: Obesity Completed 02/28/2018 Appointment: Veda Duenas WPtel: [facility] (15 min) Moderate 02/27/2018 Visit Plan: Chronic [...] weight check. 12/09/2017 Appointment: Veda Duenas WPtel: [phone] (15 min) Moderate 12/09/2017 Patient Education: Patient [...] weight check. 10/21/2017 Appointment: Veda Duenas WPtel: [phone] [phone] (15 min) Moderate 10/21/2017 Patient Education: Patient Medication Summary Completed 10/21/2017 Patient Education: Obesity Completed 10/21/2017 Appointment: Nurse Visit 09/26/2017 Patient Education: Patient Medication Summary Completed 09/26/2017 Appointment: Veda Duenas WPtel: [phone] [facility] (30 min) Complex 08/30/2017 Visit Plan: Chronic [...] warmth, discharge. 05/27/2017 Appointment: Veda Duenas WPtel: [facility] [place] (30 min) Complex 05/27/2017 Patient Education: Patient [...] new RX. 04/24/2017 Appointment: Veda Duenas WPtel: [address] [place], [place] [address] (30 min) Complex 04/24/2017 Patient Education: Patient [...] per pharmacy. 03/27/2017 Appointment: Veda Duenas WPtel: [phone] [facility] 03/27/2017 Patient Education: Patient Medication Summary Completed 03/27/2017 Care Plan: BMI Above normal followup SELF-MGMT EDUC & TRAIN 1 PT Pending 11/07/2016 Visit Plan: Obesity - chronic issue with this patient. The pt has been counseled about diet changes, calorie restriction, and need to exercise. Pt will RTC in one month for weight check. 10/25/2016 Appointment: Veda Duenas WPtel: [phone] (15 min) Moderate 10/25/2016 Patient Education: Patient [...] check. 08/24/2016 Appointment: Rad[facility] Mcgowan [facility]Ptel[phone] ([facility] Complex 08/24/2016 Appointment: Radha Mcgowan WPtel: [address] [place], [place] [phone] (30 min) Complex 08/24/2016 Appointment: Radha Mcgowan WPtel: [phone] (30 min) Complex 08/24/2016 Patient Education: Patient [...] this patient. 06/12/2016 Appointment: [facility] [phone] [phone] New Patient 06/12/2016 Patient Education: Patient [...]
--- OUTSIDE RECORDS SUMMARY | 2019-07-01 06:27 | XMS REPORT | CCD ---
Author Author [facility] Address [address] [place] [address] Phone Care Team Providers Care Ict Programmer Name Role Phone PP Unavailable CCM Unavailable Summary Purpose Interface Exchange Insurance Providers Payer name Policy type / Coverage type Covered libertarian ID Effective Begin Date Effective End Date [employer] [id number] 2018 Unknown Family history Father Diagnosis Age At Onset Diabetes Unknown Hyperlipidemia Unknown Hypertension Unknown Heart Attack Unknown Social History Social History Element Codes Description Effective Dates Marital status Unknown CJ 06/12/2016 Number of children Unknown 3 06/12/[address]: 904663284 Never smoker 06/12/[address]: 024239281 Never drinks alcohol 06/12/2016 Allergies, Adverse Reactions, [...] Start Date Stop Date Status Fill Instructions prednisolone 15 mg/5 mL oral solution RxNorm: 404758 5 Milliliter(s) PO BID 02/23/2019 02/27/2019 Active valacyclovir 1 gram tablet RxNorm: 768989 1 Tablet(s) PO TID 02/23/2019 03/01/2019 Active hydrocodone 5 mg-acetaminophen 325 mg tablet RxNorm: 173570 1-1.5 Tablet(s) PO QID as needed 01/28/2019 02/26/2019 Active hydrocodone 5 mg-acetaminophen 325 mg tablet RxNorm: 551180 1-1.5 Tablet(s) PO QID as needed 01/01/2019 01/27/2019 Inactive cyclobenzaprine 5 mg tablet RxNorm: 543178 TAKE ONE TABLET BY MOUTH THREE TIMES DAILY NEEDED FOR MUSCLE SPASM 12/16/2018 No Stop Date Active phentermine 37.5 mg tablet RxNorm: 997538 1 Tablet(s) PO daily 11/27/2018 No Stop Date Active Lexapro 10 mg tablet RxNorm: 306507 TAKE 1 TABLET BY MOUTH ONCE DAILY 11/26/2018 No Stop Date Active cyclobenzaprine 5 mg tablet RxNorm: 342407 TAKE ONE TABLET BY MOUTH THREE TIMES DAILY NEEDED FOR MUSCLE SPASM 11/12/2018 12/15/2018 Inactive hydrocodone 5 mg-acetaminophen 325 mg tablet RxNorm: 384008 1-1.5 Tablet(s) PO QID as needed 11/06/2018 12/05/2018 Inactive Lyrica 100 mg capsule RxNorm: 354341 1 Capsule(s) PO BID as needed 10/31/2018 01/28/2019 Inactive pravastatin 20 mg tablet RxNorm: 667549 1 Tablet(s) PO QPM 10/28/2018 02/24/2019 Active pravastatin 20 mg tablet RxNorm: 837687 1 Tablet(s) PO QPM 10/28/2018 10/27/2018 Inactive EEMT 1.25 mg-2.5 mg tablet RxNorm: 672023 1 Tablet(s) PO daily 10/09/2018 01/06/2019 Inactive norethindrone acetate 1 mg-ethinyl estradiol 20 mcg tablet RxNorm: 5348976 1 Tablet(s) PO daily 10/09/2018 10/03/2019 Active hydrocodone 5 mg-acetaminophen 325 mg tablet RxNorm: 598169 1-1.5 Tablet(s) PO QID as needed 10/09/2018 11/05/2018 Inactive hydrocodone 5 mg-acetaminophen 325 mg tablet RxNorm: 601902 1-1.5 Tablet(s) PO QID as needed 09/11/2018 10/08/2018 Inactive phentermine 37.5 mg tablet RxNorm: 671936 1 Tablet(s) PO daily 08/29/2018 11/26/2018 Inactive cyclobenzaprine 5 mg tablet RxNorm: 184291 TAKE ONE TABLET BY MOUTH THREE TIMES DAILY NEEDED FOR MUSCLE SPASM 08/27/2018 11/11/2018 Inactive hydrocodone 5 mg-acetaminophen 325 mg tablet RxNorm: 619754 1-1.5 Tablet(s) PO QID as needed 08/14/2018 09/10/2018 Inactive Lexapro 10 mg tablet RxNorm: 489175 1 Tablet(s) PO daily 07/18/2018 08/16/2018 Inactive diazepam 10 mg tablet RxNorm: 435872 1 Tablet(s) PO TID as needed anxiety 07/11/2018 07/14/2018 Inactive Zorvolex 35 mg capsule RxNorm: 2897035 1 Capsule(s) PO TID 06/18/2018 No Stop Date Active hydrocodone 5 mg-acetaminophen 325 mg tablet RxNorm: 444059 1-1.5 Tablet(s) PO QID as needed 06/18/2018 07/17/2018 Inactive cyclobenzaprine 5 mg tablet RxNorm: 578469 TAKE ONE TABLET BY MOUTH THREE TIMES DAILY NEEDED FOR MUSCLE SPASM 06/04/2018 08/26/2018 Inactive hydrocodone 5 mg-acetaminophen 325 mg tablet RxNorm: 587059 1-1.5 Tablet(s) PO QID as needed 05/26/2018 06/17/2018 Inactive cyclobenzaprine 5 mg tablet RxNorm: 572141 TAKE ONE TABLET BY MOUTH THREE TIMES DAILY NEEDED FOR MUSCLE SPASM 05/07/2018 06/03/2018 Inactive ibuprofen 800 mg tablet RxNorm: 734447 TAKE ONE TABLET BY MOUTH THREE TIMES DAILY NEEDED 04/28/2018 No Stop Date Active hydrocodone 5 mg-acetaminophen 325 mg tablet RxNorm: 331158 1-1.5 Tablet(s) PO QID as needed 04/28/2018 05/25/2018 Inactive diazepam 10 mg tablet RxNorm: 825681 1 Tablet(s) PO TID as needed anxiety 04/22/2018 06/19/2018 Inactive hydrocodone 5 mg-acetaminophen 325 mg tablet RxNorm: 373376 1-1.5 Tablet(s) PO QID as needed 03/25/2018 04/23/2018 Inactive cyclobenzaprine 5 mg tablet RxNorm: 237830 TAKE ONE TABLET BY MOUTH THREE TIMES DAILY NEEDED FOR MUSCLE SPASM 03/17/2018 05/06/2018 Inactive hydrocodone 5 mg-acetaminophen 325 mg tablet RxNorm: 933228 1-1.5 Tablet(s) PO QID as needed 03/02/2018 03/24/2018 Inactive phentermine 37.5 mg tablet RxNorm: 899241 1 Tablet(s) PO daily 03/02/2018 08/28/2018 Inactive hydrocodone 5 mg-acetaminophen 325 mg tablet RxNorm: 392400 1-1.5 Tablet(s) PO QID as needed 02/03/2018 03/01/2018 Inactive diazepam 10 mg tablet RxNorm: 014471 1 Tablet(s) PO TID as needed anxiety 01/01/2018 02/28/2018 Inactive hydrocodone 5 mg-acetaminophen 325 mg tablet RxNorm: 662360 1-1.5 Tablet(s) PO QID as needed 12/09/2017 01/07/2018 Inactive ibuprofen 800 mg tablet RxNorm: 435208 1 Tablet(s) PO TID as needed 12/09/2017 01/07/2018 Inactive Lyrica 100 mg capsule RxNorm: 827275 1 Capsule(s) PO BID as needed 12/09/2017 03/07/2018 Inactive cyclobenzaprine 5 mg tablet RxNorm: 393778 TAKE ONE TABLET BY MOUTH THREE TIMES DAILY NEEDED FOR MUSCLE SPASM 12/03/2017 03/16/2018 Inactive hydrocodone 5 mg-acetaminophen 325 mg tablet RxNorm: 803336 1-1.5 Tablet(s) PO QID as needed 10/21/2017 11/19/2017 Inactive hydrocodone 7.5 mg-acetaminophen 325 mg tablet RxNorm: 163041 1 Tablet(s) PO QID as needed 09/26/2017 10/20/2017 Inactive phentermine 37.5 mg tablet RxNorm: 673129 1 Tablet(s) PO daily 09/26/2017 10/01/2017 Inactive Lyrica 100 mg capsule RxNorm: 634073 1 Capsule(s) PO BID as needed 09/12/2017 12/08/2017 Inactive hydrocodone 7.5 mg-acetaminophen 325 mg tablet RxNorm: 873514 1 Tablet(s) PO QID as needed 08/27/2017 09/23/2017 Inactive Belviq XR 20 mg tablet,extended release RxNorm: 3095239 1 Tablet(s) PO daily 08/27/2017 09/23/2017 Inactive cyclobenzaprine 5 mg tablet RxNorm: 723587 1 Tablet(s) PO TID as needed muscle spasms 08/19/2017 08/23/2017 Inactive hydrocodone 7.5 mg-acetaminophen 325 mg tablet RxNorm: 269894 1 Tablet(s) PO QID as needed 08/02/2017 08/26/2017 Inactive hydrocodone 7.5 mg-acetaminophen 325 mg tablet RxNorm: 998605 1 Tablet(s) PO TID as needed 08/02/2017 08/01/2017 Inactive diazepam 10 mg tablet RxNorm: 531543 1 Tablet(s) PO TID as needed anxiety 07/24/2017 02/02/2018 Inactive hydrocodone 7.5 mg-acetaminophen 325 mg tablet RxNorm: 338703 1 Tablet(s) PO TID as needed 07/11/2017 08/01/2017 Inactive Lyrica 100 mg capsule RxNorm: 876667 1 Capsule(s) PO BID as needed 06/24/2017 09/20/2017 Inactive hydrocodone 5 mg-acetaminophen 325 mg tablet RxNorm: 978112 1 Tablet(s) PO TID 06/24/2017 07/30/2017 Inactive prednisone 10 mg tablet RxNorm: 283795 1 Tablet(s) PO daily 06/18/2017 06/17/2017 Inactive 6-5-4-3-2-1 then stop prednisone 10 mg tablet RxNorm: 864212 1 Tablet(s) PO daily 06/18/2017 08/25/2017 Inactive 6-5-4-3-2-1 then stop Bactrim DS 800 mg-160 mg tablet RxNorm: 094661 1 Tablet(s) PO BID 06/11/2017 06/14/2017 Inactive Bactrim DS 800 mg-160 mg tablet RxNorm: 181618 1 Tablet(s) PO BID 06/03/2017 06/10/2017 Inactive mupirocin 2 % topical ointment RxNorm: 604946 1 Application TOP BID 06/03/2017 08/25/2017 Inactive Lyrica 100 mg capsule RxNorm: 807384 1 Capsule(s) PO BID as needed 05/27/2017 06/23/2017 Inactive Keflex 500 mg capsule RxNorm: 825233 1 Capsule(s) PO TID 05/27/2017 06/02/2017 Inactive Lexapro 10 mg tablet RxNorm: 808393 1 Tablet(s) PO daily 05/27/2017 08/25/2017 Inactive hydrocodone 5 mg-acetaminophen 325 mg tablet RxNorm: 908723 1 Tablet(s) PO TID 05/27/2017 06/23/2017 Inactive hydrocodone 7.5 mg-acetaminophen 325 mg tablet RxNorm: 232807 1 Tablet(s) PO TID as needed 05/13/2017 05/25/2017 Inactive hydrocodone 7.5 mg-acetaminophen 325 mg tablet RxNorm: 682018 1 Tablet(s) PO TID as needed 05/13/2017 05/12/2017 Inactive cyclobenzaprine 5 mg tablet RxNorm: 448456 TAKE ONE TABLET BY MOUTH THREE TIMES DAILY NEEDED FOR MUSCLE SPASM 05/01/2017 05/05/2017 Inactive hydrocodone 5 mg-acetaminophen 325 mg tablet RxNorm: 364330 1 Tablet(s) PO TID as needed 04/24/2017 05/12/2017 Inactive cyclobenzaprine 5 mg tablet RxNorm: 482540 1 Tablet(s) PO TID as needed muscle spasms 04/24/2017 04/28/2017 Inactive diazepam 10 mg tablet RxNorm: 701816 1 Tablet(s) PO TID as needed anxiety 02/22/2017 04/19/2017 Inactive norethindrone acetate 1 mg-ethinyl estradiol 20 mcg tablet RxNorm: 7381930 1 Tablet(s) PO daily 12/18/2016 07/15/2017 Inactive EEMT 1.25 mg-2.5 mg tablet RxNorm: 108727 1 Tablet(s) PO daily 12/06/2016 03/05/2017 Inactive EEMT 1.25 mg-2.5 mg tablet RxNorm: 182430 1 Tablet(s) PO daily 12/06/2016 12/05/2016 Inactive Lexapro 10 mg tablet RxNorm: 842361 1 Tablet(s) PO daily 12/06/2016 05/04/2017 Inactive diazepam 10 mg tablet RxNorm: 977674 1 Tablet(s) PO TID 11/09/2016 12/07/2016 Inactive phentermine 37.5 mg tablet RxNorm: 198356 1 Tablet(s) PO daily 10/25/2016 08/23/2017 Inactive EEMT 1.25 mg-2.5 mg tablet RxNorm: 175536 1 Tablet(s) PO daily 10/25/2016 12/05/2016 Inactive phentermine 37.5 mg tablet RxNorm: 998172 1 Tablet(s) PO daily 09/20/2016 10/24/2016 Inactive Lexapro 10 mg tablet RxNorm: 617776 1 Tablet(s) PO daily 07/10/2016 12/05/2016 Inactive Lexapro 10 mg tablet RxNorm: 216629 1 Tablet(s) PO daily 06/12/2016 07/09/2016 Inactive norethindrone acetate 1 mg-ethinyl estradiol 20 mcg tablet RxNorm: 5587913 1 Tablet(s) PO daily 06/12/2016 12/17/2016 Inactive hydrocodone 10 mg-acetaminophen 325 mg tablet RxNorm: 326348 1 Tablet(s) PO TID No Start Date 05/12/2017 Inactive phentermine 37.5 mg tablet RxNorm: 684923 1 Tablet(s) PO daily No Start Date 09/19/2016 Inactive norethindrone acetate 1 mg-ethinyl estradiol 20 mcg tablet RxNorm: 3056121 1 Tablet(s) PO daily No Start Date 06/11/2016 Inactive EEMT 1.25 mg-2.5 mg tablet RxNorm: 570398 1 Tablet(s) PO daily No Start Date [...] lips 10/21/2017 None Full Exam - General 1995 Ears/Nose/Throat [...] clear 08/27/2017 None Full Exam - General 1995 Ears/Nose/Throat [...] 1: 142/72 Code: 8480-6 BMI: 30.9 Code: 77734-3 Heart Rate 1: 82 bpm Height: 5'2" SpO2: 98% Weight: 169 lbs 12/08/2018 Blood Pressure 1: 130/74 Code: 8480-6 BMI: 30.7 Code: 21067-9 Heart Rate 1: 82 bpm Height: 5'2" SpO2: 97% Weight: 168 lbs 11/27/2018 Blood Pressure 1: 130/74 Code: 8480-6 Weight: 168 lbs 10/09/2018 Blood Pressure 1: 128/74 Code: 8480-6 BMI: 31.1 Code: 48430-8 Heart Rate 1: 81 bpm Height: 5'2" SpO2: 97% Weight: 170 lbs 08/29/2018 Blood Pressure 1: 120/70 Code: 8480-6 BMI: 31.1 Code: 88422-8 Heart Rate 1: 65 bpm Height: 5'2" Weight: 170 lbs 07/18/2018 Blood Pressure 1: 126/88 Code: 8480-6 Heart Rate 1: 78 bpm Height: SpO2: 97% Weight: 07/16/2018 Blood Pressure 1: 130/78 Code: 8480-6 Heart Rate 1: 84 bpm Weight: 172 lbs 06/18/2018 Blood Pressure 1: 128/80 Code: 8480-6 BMI: 31.1 Code: 75773-3 Heart Rate 1: 80 bpm Height: 5'2" SpO2: 97% Weight: 170 lbs 02/28/2018 Blood Pressure 1: 120/78 Code: 8480-6 BMI: 31.6 Code: 52593-3 Heart Rate 1: 66 bpm Height: 5'2" SpO2: 98% Weight: 173 lbs 12/09/2017 Blood Pressure 1: 116/74 Code: 8480-6 BMI: 31.5 Code: 14773-5 Heart Rate 1: 74 bpm Height: 5'2" SpO2: 95% Weight: 172 lbs 10/21/2017 Blood Pressure 1: 136/82 Code: 8480-6 BMI: 30.4 Code: 85272-6 Heart Rate 1: 79 bpm Height: 5'2" SpO2: 97% Weight: 166 lbs 09/26/2017 Blood Pressure 1: 122/80 Code: 8480-6 BMI: 30.4 Code: 30458-9 Heart Rate 1: 63 bpm Height: 5'2" SpO2: 98% Weight: 166 lbs 08/27/2017 Blood Pressure 1: 132/70 Code: 8480-6 BMI: 30.7 Code: 81134-0 Heart Rate 1: 89 bpm Height: 5'2" SpO2: 98% Weight: 168 lbs 05/27/2017 Blood Pressure 1: 132/72 Code: 8480-6 BMI: 28.9 Code: 74447-1 Heart Rate 1: 72 bpm Height: 5'2" SpO2: 98% Weight: 158 lbs 04/24/2017 Blood Pressure 1: 140/76 Code: 8480-6 BMI: 29.3 Code: 11935-0 Heart Rate 1: 77 bpm Height: 5'2" SpO2: 97% Weight: 160 lbs 03/27/2017 Blood Pressure 1: 128/74 Code: 8480-6 BMI: 29.1 Code: 43267-5 Heart Rate 1: 74 bpm Height: 5'2" SpO2: 98% Temperature: 36.8 (C) / 98.3 (F) Weight: 159 lbs 10/25/2016 Blood Pressure 1: 116/74 Code: 8480-6 BMI: 28.9 Code: 20576-5 Heart Rate 1: 68 bpm Height: 5'2" SpO2: 99% Weight: 158 lbs 09/20/2016 Blood Pressure 1: 116/70 Code: 8480-6 Heart Rate 1: 72 bpm Weight: 150 lbs 08/24/2016 Blood Pressure 1: 118/62 Code: 8480-6 BMI: 27.6 Code: 85200-5 Heart Rate 1: 63 bpm Height: 5'2" SpO2: 99% Weight: 151 lbs 06/12/2016 Blood Pressure 1: 122/74 Code: 8480-6 BMI: 26.9 Code: 30212-1 Heart Rate 1: 52 bpm Height: 5'2" [...] data Encounters Encounter Performer Location Codes Date 50207 EST. PATIENT, LEVEL III Diagnosis: Recurrent oral aphthae[ICD10: K12.0] Veda Jama MD, [facility] CPT- 4: 41847 02/23/2019 02899 EST. PATIENT, LEVEL III Diagnosis: Chronic pain syndrome[ICD10: G89.4] Veda Jama MD, [facility] CPT- 4: 85061 12/08/2018 ([id number]) Miscellaneous no charge Diagnosis: Overweight[ICD10: E66.3] Juju Jama MD, [facility] CPT-4: 43667 11/27/2018 09545 EST. PATIENT, LEVEL III Diagnosis: Chronic pain syndrome[ICD10: G89.4] Diagnosis: Menopausal and female climacteric states[ICD10: N95.1] Veda Jama MD, [facility] CPT-4: 82901 10/09/2018 ([id number]) Miscellaneous no charge Diagnosis: Overweight[ICD10: E66.3] Juju Jama MD, [facility] CPT-4: 06267 08/29/2018 53060 EST. PATIENT, LEVEL III Diagnosis: Generalized anxiety disorder[ICD10: F41.1] Diagnosis: Major depressive disorder, single episode, moderate[ICD10: F32.1] Veda Jama MD, [facility] CPT-4: 72546 07/18/2018 ([id number]) Miscellaneous no charge Diagnosis: Overweight[ICD10: E66.3] Juju Jama MD, [facility] CPT-4: 39066 07/16/2018 17801 EST. PATIENT, LEVEL III Diagnosis: Chronic pain syndrome[ICD10: G89.4] Diagnosis: Overweight[ICD10: E66.3] Veda Jama MD, [facility] CPT-4: 79582 06/18/2018 72837 EST. PATIENT, LEVEL IV Diagnosis: Chronic pain syndrome[ICD10: G89.4] Diagnosis: Overweight[ICD10: E66.3] Veda Jama MD, [facility] CPT-4: 76135 02/28/2018 43329 EST. PATIENT, LEVEL III Diagnosis: Chronic pain syndrome[ICD10: G89.4] Diagnosis: Overweight[ICD10: E66.3] Veda Jama MD, [facility] CPT-4: 54368 12/09/2017 60009 EST. PATIENT, LEVEL III Diagnosis: Chronic pain syndrome[ICD10: G89.4] Diagnosis: Overweight[ICD10: E66.3] Veda Jama MD, [facility] CPT-4: 31425 10/21/2017 ([id number]) Miscellaneous no charge Diagnosis: Overweight[ICD10: E66.3] Juju Jama MD, [facility] CPT-4: 22463 09/26/2017 86064 EST. PATIENT, LEVEL III Diagnosis: Chronic pain syndrome[ICD10: G89.4] Diagnosis: Overweight[ICD10: E66.3] Veda Jama MD, [facility] CPT-4: 60144 08/27/2017 38466 EST. PATIENT, LEVEL III Diagnosis: Chronic pain syndrome[ICD10: G89.4] Diagnosis: Generalized anxiety disorder[ICD10: F41.1] Diagnosis: Major depressive disorder, single episode, moderate[ICD10: F32.1] Diagnosis: Cellulitis of right lower limb[ICD10: L03.115] Veda Jama MD, [facility] CPT-4: 26680 05/27/2017 ([id number]) 42741 EST. PATIENT, LEVEL IV Diagnosis: Generalized anxiety disorder[ICD10: F41.1] Diagnosis: Major depressive disorder, single episode, moderate[ICD10: F32.1] Diagnosis: Menopausal and female climacteric states[ICD10: N95.1] Diagnosis: Chronic pain syndrome[ICD10: G89.4] Veda Jama MD, [facility] CPT- 4: 34171 04/24/2017 ([id number]) PREV VISIT EST AGE 18-39 Diagnosis: Encounter for gynecological examination (general) (routine) without abnormal findings[ICD10: Z01.419] Veda Jama MD, [facility] CPT-4: 25664 03/27/2017 ([id number]) 48015 EST. PATIENT, LEVEL III Diagnosis: Overweight[ICD10: E66.3] [facility] CPT-4: 21320 10/25/2016 ([id number]) Miscellaneous no charge Diagnosis: Overweight[ICD10: E66.3] Radha [facility] M [facility] CPT-4: 92046 09/20/2016 41657 EST. PATIENT, LEVEL IV Diagnosis: Other fatigue[ICD10: R53.83] Diagnosis: Overweight[ICD10: E66.3] Diagnosis: Generalized anxiety disorder[ICD10: F41.1] [facility] CPT-4: 37554 08/24/2016 ([id number]) OFFICE VISIT, NEW - LEVEL 4 Diagnosis: Generalized anxiety disorder[ICD10: F41.1] Diagnosis: Major depressive disorder, single episode, moderate[ICD10: F32.1] [facility] CPT-4: 79973 06/12/2016 Plan of Care Planned Activity Notes Codes Status Date Visit Plan: Princess haas - ongoing - will send RX - pt is to notify clinic if symptoms do not improve, if they worsen, or with any changes, questions, or concerns. Will refer to Dr. Bassett if symptoms persist. 02/23/2019 Patient Education: Patient Medication Summary Completed 02/23/2019 Visit Plan: Chronic Pain Syndrome - pt has chronic pain - has been maintained on current medications, has not sought out other medications, only uses PRN pain medications as directed, and understands the consequences of over-medication. 12/08/2018 Appointment: Veda Duenas WPtel: [address] [place], [place] [phone] (30 min) [facility] 12/08/2018 Patient Education: Patient Medication Summary Completed [...] or concerns. 10/09/2018 Appointment: Veda Duenas WPtel: [phone] [facility] (15 min) Moderate 10/09/2018 Patient Education: [...] this patient. 07/18/2018 Appointment: Veda Duenas WPtel: [address] [facility] (15 min) Moderate 07/18/2018 Patient Education: [...] check. 06/18/2018 Appointment: Veda Duenas WPtel: [phone] [facility] (15 min) Moderate 06/18/2018 Patient Education: [...] weight check. 02/28/2018 Appointment: Veda Duenas WPtel: [facility] [place] (30 min) Complex 02/28/2018 Patient Education: Patient Medication Summary Completed 02/28/2018 Patient Education: Obesity Completed 02/28/2018 Appointment: Veda Duenas WPtel: [address] [place], [place] [phone] (15 min) Moderate 02/27/2018 Visit Plan: Chronic [...] for weight check. 12/09/2017 Appointment: Veda Duenastel: [facility] [place] (15 min) Moderate 12/09/2017 Patient Education: [...] weight check. 10/21/2017 Appointment: Veda Duenas WPtel: [facility] [place] (15 min) Moderate 10/21/2017 Patient Education: Patient Medication Summary Completed 10/21/2017 Patient Education: Obesity Completed 10/21/2017 Appointment: Nurse Visit 09/26/2017 Patient Education: Patient Medication Summary Completed 09/26/2017 Appointment: Veda Duenas WPtel: [phone] [facility] (30 min) Complex 08/30/2017 Visit Plan: Chronic [...] discharge. 05/27/2017 Appointment: Veda Duenas WPtel: [phone] [facility] (30 min) Complex 05/27/2017 Patient Education: [...] new RX. 04/24/2017 Appointment: Veda Duenas WPtel: [facility] [place] (30 min) Complex 04/24/2017 Patient Education: Patient [...] per pharmacy. 03/27/2017 Appointment: [facility] [facility] [facility] [...] weight check. 10/25/2016 Appointment: Veda Duenas WPtel: [facility] [place] (15 min) Moderate 10/25/2016 Patient Education: [...] weight check. 08/24/2016 Appointment: Radha Mcgowan WPtel: [facility] [phone] (30 min) Complex 08/24/2016 Appointment: Radha Mcgowan WPtel: [facility] [phone] (30 min) Complex 08/24/2016 Appointment: Radha Mcgowan WPtel: [address] [place], [place] [phone] (30 min) Complex 08/24/2016 Patient Education: Patient [...] patient. 06/12/2016 Appointment: Juan M Radha WPtel: [facility] [phone] New Patient 06/12/2016 Patient Education: Patient Medication [...]
--- OUTSIDE RECORDS SUMMARY | 2019-07-01 06:28 | XMS REPORT | CCD ---
Author Author [facility] Address [address] [place] [address] Phone Care Team Providers Care Industrial Tech Instructor Name Role Phone PP Unavailable CCM Unavailable Summary Purpose Interface Exchange Insurance Providers Payer name Policy type / Coverage type Covered libertarian ID Effective Begin Date Effective End Date [employer] [id number] 2018 Unknown Family history Father Diagnosis Age At Onset Diabetes Unknown Hyperlipidemia Unknown Hypertension Unknown Heart Attack Unknown Social History Social History Element Codes Description Effective Dates Marital status Unknown CJ 06/12/2016 Number of children Unknown 3 06/12/[address]: 512570327 Never smoker 06/12/[address]: 648309096 Never drinks alcohol 06/12/2016 Allergies, Adverse Reactions, [...] prednisolone 15 mg/5 mL oral solution RxNorm: 013872 5 Milliliter(s) PO BID 02/23/2019 02/27/2019 Active valacyclovir 1 gram tablet RxNorm: 198947 1 Tablet(s) PO TID 02/23/2019 03/01/2019 Active hydrocodone 5 mg-acetaminophen 325 mg tablet RxNorm: 611592 1-1.5 Tablet(s) PO QID as needed 01/28/2019 02/26/2019 Active hydrocodone 5 mg-acetaminophen 325 mg tablet RxNorm: 846406 1-1.5 Tablet(s) PO QID as needed 01/01/2019 01/27/2019 Inactive cyclobenzaprine 5 mg tablet RxNorm: 594122 TAKE ONE TABLET BY MOUTH THREE TIMES DAILY NEEDED FOR MUSCLE SPASM 12/16/2018 No Stop Date Active phentermine 37.5 mg tablet RxNorm: 918206 1 Tablet(s) PO daily 11/27/2018 No Stop Date Active Lexapro 10 mg tablet RxNorm: 757496 TAKE 1 TABLET BY MOUTH ONCE DAILY 11/26/2018 No Stop Date Active cyclobenzaprine 5 mg tablet RxNorm: 147062 TAKE ONE TABLET BY MOUTH THREE TIMES DAILY NEEDED FOR MUSCLE SPASM 11/12/2018 12/15/2018 Inactive hydrocodone 5 mg-acetaminophen 325 mg tablet RxNorm: 831668 1-1.5 Tablet(s) PO QID as needed 11/06/2018 12/05/2018 Inactive Lyrica 100 mg capsule RxNorm: 692484 1 Capsule(s) PO BID as needed 10/31/2018 01/28/2019 Inactive pravastatin 20 mg tablet RxNorm: 359809 1 Tablet(s) PO QPM 10/28/2018 02/24/2019 Active pravastatin 20 mg tablet RxNorm: 637490 1 Tablet(s) PO QPM 10/28/2018 10/27/2018 Inactive EEMT 1.25 mg-2.5 mg tablet RxNorm: 239676 1 Tablet(s) PO daily 10/09/2018 01/06/2019 Inactive norethindrone acetate 1 mg-ethinyl estradiol 20 mcg tablet RxNorm: 5675756 1 Tablet(s) PO daily 10/09/2018 10/03/2019 Active hydrocodone 5 mg-acetaminophen 325 mg tablet RxNorm: 555254 1-1.5 Tablet(s) PO QID as needed 10/09/2018 11/05/2018 Inactive hydrocodone 5 mg-acetaminophen 325 mg tablet RxNorm: 928025 1-1.5 Tablet(s) PO QID as needed 09/11/2018 10/08/2018 Inactive phentermine 37.5 mg tablet RxNorm: 159267 1 Tablet(s) PO daily 08/29/2018 11/26/2018 Inactive cyclobenzaprine 5 mg tablet RxNorm: 862829 TAKE ONE TABLET BY MOUTH THREE TIMES DAILY NEEDED FOR MUSCLE SPASM 08/27/2018 11/11/2018 Inactive hydrocodone 5 mg-acetaminophen 325 mg tablet RxNorm: 513312 1-1.5 Tablet(s) PO QID as needed 08/14/2018 09/10/2018 Inactive Lexapro 10 mg tablet RxNorm: 984078 1 Tablet(s) PO daily 07/18/2018 08/16/2018 Inactive diazepam 10 mg tablet RxNorm: 592349 1 Tablet(s) PO TID as needed anxiety 07/11/2018 07/14/2018 Inactive Zorvolex 35 mg capsule RxNorm: 4591829 1 Capsule(s) PO TID 06/18/2018 No Stop Date Active hydrocodone 5 mg-acetaminophen 325 mg tablet RxNorm: 069861 1-1.5 Tablet(s) PO QID as needed 06/18/2018 07/17/2018 Inactive cyclobenzaprine 5 mg tablet RxNorm: 074286 TAKE ONE TABLET BY MOUTH THREE TIMES DAILY NEEDED FOR MUSCLE SPASM 06/04/2018 08/26/2018 Inactive hydrocodone 5 mg-acetaminophen 325 mg tablet RxNorm: 091614 1-1.5 Tablet(s) PO QID as needed 05/26/2018 06/17/2018 Inactive cyclobenzaprine 5 mg tablet RxNorm: 148974 TAKE ONE TABLET BY MOUTH THREE TIMES DAILY NEEDED FOR MUSCLE SPASM 05/07/2018 06/03/2018 Inactive ibuprofen 800 mg tablet RxNorm: 747134 TAKE ONE TABLET BY MOUTH THREE TIMES DAILY NEEDED 04/28/2018 No Stop Date Active hydrocodone 5 mg-acetaminophen 325 mg tablet RxNorm: 557891 1-1.5 Tablet(s) PO QID as needed 04/28/2018 05/25/2018 Inactive diazepam 10 mg tablet RxNorm: 040540 1 Tablet(s) PO TID as needed anxiety 04/22/2018 06/19/2018 Inactive hydrocodone 5 mg-acetaminophen 325 mg tablet RxNorm: 904220 1-1.5 Tablet(s) PO QID as needed 03/25/2018 04/23/2018 Inactive cyclobenzaprine 5 mg tablet RxNorm: 891558 TAKE ONE TABLET BY MOUTH THREE TIMES DAILY NEEDED FOR MUSCLE SPASM 03/17/2018 05/06/2018 Inactive hydrocodone 5 mg-acetaminophen 325 mg tablet RxNorm: 301205 1-1.5 Tablet(s) PO QID as needed 03/02/2018 03/24/2018 Inactive phentermine 37.5 mg tablet RxNorm: 129689 1 Tablet(s) PO daily 03/02/2018 08/28/2018 Inactive hydrocodone 5 mg-acetaminophen 325 mg tablet RxNorm: 594830 1-1.5 Tablet(s) PO QID as needed 02/03/2018 03/01/2018 Inactive diazepam 10 mg tablet RxNorm: 490076 1 Tablet(s) PO TID as needed anxiety 01/01/2018 02/28/2018 Inactive hydrocodone 5 mg-acetaminophen 325 mg tablet RxNorm: 932415 1-1.5 Tablet(s) PO QID as needed 12/09/2017 01/07/2018 Inactive ibuprofen 800 mg tablet RxNorm: 151900 1 Tablet(s) PO TID as needed 12/09/2017 01/07/2018 Inactive Lyrica 100 mg capsule RxNorm: 817273 1 Capsule(s) PO BID as needed 12/09/2017 03/07/2018 Inactive cyclobenzaprine 5 mg tablet RxNorm: 170533 TAKE ONE TABLET BY MOUTH THREE TIMES DAILY NEEDED FOR MUSCLE SPASM 12/03/2017 03/16/2018 Inactive hydrocodone 5 mg-acetaminophen 325 mg tablet RxNorm: 235025 1-1.5 Tablet(s) PO QID as needed 10/21/2017 11/19/2017 Inactive hydrocodone 7.5 mg-acetaminophen 325 mg tablet RxNorm: 585055 1 Tablet(s) PO QID as needed 09/26/2017 10/20/2017 Inactive phentermine 37.5 mg tablet RxNorm: 076545 1 Tablet(s) PO daily 09/26/2017 10/01/2017 Inactive Lyrica 100 mg capsule RxNorm: 658120 1 Capsule(s) PO BID as needed 09/12/2017 12/08/2017 Inactive hydrocodone 7.5 mg-acetaminophen 325 mg tablet RxNorm: 194681 1 Tablet(s) PO QID as needed 08/27/2017 09/23/2017 Inactive Belviq XR 20 mg tablet,extended release RxNorm: 1736902 1 Tablet(s) PO daily 08/27/2017 09/23/2017 Inactive cyclobenzaprine 5 mg tablet RxNorm: 656133 1 Tablet(s) PO TID as needed muscle spasms 08/19/2017 08/23/2017 Inactive hydrocodone 7.5 mg-acetaminophen 325 mg tablet RxNorm: 638298 1 Tablet(s) PO QID as needed 08/02/2017 08/26/2017 Inactive hydrocodone 7.5 mg-acetaminophen 325 mg tablet RxNorm: 066091 1 Tablet(s) PO TID as needed 08/02/2017 08/01/2017 Inactive diazepam 10 mg tablet RxNorm: 018187 1 Tablet(s) PO TID as needed anxiety 07/24/2017 02/02/2018 Inactive hydrocodone 7.5 mg-acetaminophen 325 mg tablet RxNorm: 629922 1 Tablet(s) PO TID as needed 07/11/2017 08/01/2017 Inactive Lyrica 100 mg capsule RxNorm: 187224 1 Capsule(s) PO BID as needed 06/24/2017 09/20/2017 Inactive hydrocodone 5 mg-acetaminophen 325 mg tablet RxNorm: 189723 1 Tablet(s) PO TID 06/24/2017 07/30/2017 Inactive prednisone 10 mg tablet RxNorm: 661714 1 Tablet(s) PO daily 06/18/2017 06/17/2017 Inactive 6-5-4-3-2-1 then stop prednisone 10 mg tablet RxNorm: 523547 1 Tablet(s) PO daily 06/18/2017 08/25/2017 Inactive 6-5-4-3-2-1 then stop Bactrim DS 800 mg-160 mg tablet RxNorm: 968934 1 Tablet(s) PO BID 06/11/2017 06/14/2017 Inactive Bactrim DS 800 mg-160 mg tablet RxNorm: 331628 1 Tablet(s) PO BID 06/03/2017 06/10/2017 Inactive mupirocin 2 % topical ointment RxNorm: 204154 1 Application TOP BID 06/03/2017 08/25/2017 Inactive Lyrica 100 mg capsule RxNorm: 361045 1 Capsule(s) PO BID as needed 05/27/2017 06/23/2017 Inactive Keflex 500 mg capsule RxNorm: 559088 1 Capsule(s) PO TID 05/27/2017 06/02/2017 Inactive Lexapro 10 mg tablet RxNorm: 142441 1 Tablet(s) PO daily 05/27/2017 08/25/2017 Inactive hydrocodone 5 mg-acetaminophen 325 mg tablet RxNorm: 655408 1 Tablet(s) PO TID 05/27/2017 06/23/2017 Inactive hydrocodone 7.5 mg-acetaminophen 325 mg tablet RxNorm: 568222 1 Tablet(s) PO TID as needed 05/13/2017 05/25/2017 Inactive hydrocodone 7.5 mg-acetaminophen 325 mg tablet RxNorm: 270533 1 Tablet(s) PO TID as needed 05/13/2017 05/12/2017 Inactive cyclobenzaprine 5 mg tablet RxNorm: 066912 TAKE ONE TABLET BY MOUTH THREE TIMES DAILY NEEDED FOR MUSCLE SPASM 05/01/2017 05/05/2017 Inactive hydrocodone 5 mg-acetaminophen 325 mg tablet RxNorm: 094608 1 Tablet(s) PO TID as needed 04/24/2017 05/12/2017 Inactive cyclobenzaprine 5 mg tablet RxNorm: 128554 1 Tablet(s) PO TID as needed muscle spasms 04/24/2017 04/28/2017 Inactive diazepam 10 mg tablet RxNorm: 686215 1 Tablet(s) PO TID as needed anxiety 02/22/2017 04/19/2017 Inactive norethindrone acetate 1 mg-ethinyl estradiol 20 mcg tablet RxNorm: 9997972 1 Tablet(s) PO daily 12/18/2016 07/15/2017 Inactive EEMT 1.25 mg-2.5 mg tablet RxNorm: 500622 1 Tablet(s) PO daily 12/06/2016 03/05/2017 Inactive EEMT 1.25 mg-2.5 mg tablet RxNorm: 589846 1 Tablet(s) PO daily 12/06/2016 12/05/2016 Inactive Lexapro 10 mg tablet RxNorm: 334812 1 Tablet(s) PO daily 12/06/2016 05/04/2017 Inactive diazepam 10 mg tablet RxNorm: 322337 1 Tablet(s) PO TID 11/09/2016 12/07/2016 Inactive phentermine 37.5 mg tablet RxNorm: 870556 1 Tablet(s) PO daily 10/25/2016 08/23/2017 Inactive EEMT 1.25 mg-2.5 mg tablet RxNorm: 926552 1 Tablet(s) PO daily 10/25/2016 12/05/2016 Inactive phentermine 37.5 mg tablet RxNorm: 490872 1 Tablet(s) PO daily 09/20/2016 10/24/2016 Inactive Lexapro 10 mg tablet RxNorm: 684010 1 Tablet(s) PO daily 07/10/2016 12/05/2016 Inactive Lexapro 10 mg tablet RxNorm: 360313 1 Tablet(s) PO daily 06/12/2016 07/09/2016 Inactive norethindrone acetate 1 mg-ethinyl estradiol 20 mcg tablet RxNorm: 5561261 1 Tablet(s) PO daily 06/12/2016 12/17/2016 Inactive hydrocodone 10 mg-acetaminophen 325 mg tablet RxNorm: 832145 1 Tablet(s) PO TID No Start Date 05/12/2017 Inactive phentermine 37.5 mg tablet RxNorm: 919972 1 Tablet(s) PO daily No Start Date 09/19/2016 Inactive norethindrone acetate 1 mg-ethinyl estradiol 20 mcg tablet RxNorm: 7735039 1 Tablet(s) PO daily No Start Date 06/11/2016 Inactive EEMT 1.25 mg-2.5 mg tablet RxNorm: 637572 1 Tablet(s) PO daily No Start Date [...] 1: 142/72 Code: 8480-6 BMI: 30.9 Code: 55613-7 Heart Rate 1: 82 bpm Height: 5'2" SpO2: 98% Weight: 169 lbs 12/08/2018 Blood Pressure 1: 130/74 Code: 8480-6 BMI: 30.7 Code: 00000-7 Heart Rate 1: 82 bpm Height: 5'2" SpO2: 97% Weight: 168 lbs 11/27/2018 Blood Pressure 1: 130/74 Code: 8480-6 Weight: 168 lbs 10/09/2018 Blood Pressure 1: 128/74 Code: 8480-6 BMI: 31.1 Code: 83108-9 Heart Rate 1: 81 bpm Height: 5'2" SpO2: 97% Weight: 170 lbs 08/29/2018 Blood Pressure 1: 120/70 Code: 8480-6 BMI: 31.1 Code: 71491-4 Heart Rate 1: 65 bpm Height: 5'2" Weight: 170 lbs 07/18/2018 Blood Pressure 1: 126/88 Code: 8480-6 Heart Rate 1: 78 bpm Height: SpO2: 97% Weight: 07/16/2018 Blood Pressure 1: 130/78 Code: 8480-6 Heart Rate 1: 84 bpm Weight: 172 lbs 06/18/2018 Blood Pressure 1: 128/80 Code: 8480-6 BMI: 31.1 Code: 27966-6 Heart Rate 1: 80 bpm Height: 5'2" SpO2: 97% Weight: 170 lbs 02/28/2018 Blood Pressure 1: 120/78 Code: 8480-6 BMI: 31.6 Code: 25953-9 Heart Rate 1: 66 bpm Height: 5'2" SpO2: 98% Weight: 173 lbs 12/09/2017 Blood Pressure 1: 116/74 Code: 8480-6 BMI: 31.5 Code: 20640-7 Heart Rate 1: 74 bpm Height: 5'2" SpO2: 95% Weight: 172 lbs 10/21/2017 Blood Pressure 1: 136/82 Code: 8480-6 BMI: 30.4 Code: 11026-1 Heart Rate 1: 79 bpm Height: 5'2" SpO2: 97% Weight: 166 lbs 09/26/2017 Blood Pressure 1: 122/80 Code: 8480-6 BMI: 30.4 Code: 51875-3 Heart Rate 1: 63 bpm Height: 5'2" SpO2: 98% Weight: 166 lbs 08/27/2017 Blood Pressure 1: 132/70 Code: 8480-6 BMI: 30.7 Code: 23351-7 Heart Rate 1: 89 bpm Height: 5'2" SpO2: 98% Weight: 168 lbs 05/27/2017 Blood Pressure 1: 132/72 Code: 8480-6 BMI: 28.9 Code: 55917-5 Heart Rate 1: 72 bpm Height: 5'2" SpO2: 98% Weight: 158 lbs 04/24/2017 Blood Pressure 1: 140/76 Code: 8480-6 BMI: 29.3 Code: 53613-3 Heart Rate 1: 77 bpm Height: 5'2" SpO2: 97% Weight: 160 lbs 03/27/2017 Blood Pressure 1: 128/74 Code: 8480-6 BMI: 29.1 Code: 59434-8 Heart Rate 1: 74 bpm Height: 5'2" SpO2: 98% Temperature: 36.8 (C) / 98.3 (F) Weight: 159 lbs 10/25/2016 Blood Pressure 1: 116/74 Code: 8480-6 BMI: 28.9 Code: 68816-8 Heart Rate 1: 68 bpm Height: 5'2" SpO2: 99% Weight: 158 lbs 09/20/2016 Blood Pressure 1: 116/70 Code: 8480-6 Heart Rate 1: 72 bpm Weight: 150 lbs 08/24/2016 Blood Pressure 1: 118/62 Code: 8480-6 BMI: 27.6 Code: 69605-9 Heart Rate 1: 63 bpm Height: 5'2" SpO2: 99% Weight: 151 lbs 06/12/2016 Blood Pressure 1: 122/74 Code: 8480-6 BMI: 26.9 Code: 40397-7 Heart Rate 1: 52 bpm Height: 5'2" [...] data Encounters Encounter Performer Location Codes Date 07239 EST. PATIENT, LEVEL III Diagnosis: Recurrent oral aphthae[ICD10: K12.0] Veda Jama MD, [facility] CPT- 4: 77202 02/23/2019 [id number] EST. PATIENT, LEVEL III Diagnosis: Chronic pain syndrome[ICD10: G89.4] Veda Jama MD, [facility] CPT- 4: 96300 12/08/2018 ([id number]) Miscellaneous no charge Diagnosis: Overweight[ICD10: E66.3] Juju Jama MD, [facility] CPT-4: 33646 11/27/2018 36814 EST. PATIENT, LEVEL III Diagnosis: Chronic pain syndrome[ICD10: G89.4] Diagnosis: Menopausal and female climacteric states[ICD10: N95.1] Veda Jama MD, [facility] CPT-4: 23843 10/09/2018 ([id number]) Miscellaneous no charge Diagnosis: Overweight[ICD10: E66.3] Juju Jama MD, [facility] CPT-4: 92584 08/29/2018 72449 EST. PATIENT, LEVEL III Diagnosis: Generalized anxiety disorder[ICD10: F41.1] Diagnosis: Major depressive disorder, single episode, moderate[ICD10: F32.1] Veda Jama MD, [facility] CPT-4: 12558 07/18/2018 ([id number]) Miscellaneous no charge Diagnosis: Overweight[ICD10: E66.3] Juju Jama MD, [facility] CPT-4: 42284 07/16/2018 53306 EST. PATIENT, LEVEL III Diagnosis: Chronic pain syndrome[ICD10: G89.4] Diagnosis: Overweight[ICD10: E66.3] Veda Jama MD, [facility] CPT-4: 06444 06/18/2018 87498 EST. PATIENT, LEVEL IV Diagnosis: Chronic pain syndrome[ICD10: G89.4] Diagnosis: Overweight[ICD10: E66.3] Veda Jama MD, [facility] CPT-4: 12633 02/28/2018 37168 EST. PATIENT, LEVEL III Diagnosis: Chronic pain syndrome[ICD10: G89.4] Diagnosis: Overweight[ICD10: E66.3] Veda Jama MD, [facility] CPT-4: 17713 12/09/2017 81861 EST. PATIENT, LEVEL III Diagnosis: Chronic pain syndrome[ICD10: G89.4] Diagnosis: Overweight[ICD10: E66.3] Veda Jama MD, [facility] CPT-4: 55097 10/21/2017 ([id number]) Miscellaneous no charge Diagnosis: Overweight[ICD10: E66.3] Juju Jama MD, [facility] CPT-4: 89583 09/26/2017 49525 EST. PATIENT, LEVEL III Diagnosis: Chronic pain syndrome[ICD10: G89.4] Diagnosis: Overweight[ICD10: E66.3] Veda Jama MD, [facility] CPT-4: 84303 08/27/2017 44092 EST. PATIENT, LEVEL III Diagnosis: Chronic pain syndrome[ICD10: G89.4] Diagnosis: Generalized anxiety disorder[ICD10: F41.1] Diagnosis: Major depressive disorder, single episode, moderate[ICD10: F32.1] Diagnosis: Cellulitis of right lower limb[ICD10: L03.115] Veda Jama MD, [facility] CPT-4: 95364 05/27/2017 ([id number]) 34830 EST. PATIENT, LEVEL IV Diagnosis: Generalized anxiety disorder[ICD10: F41.1] Diagnosis: Major depressive disorder, single episode, moderate[ICD10: F32.1] Diagnosis: Menopausal and female climacteric states[ICD10: N95.1] Diagnosis: Chronic pain syndrome[ICD10: G89.4] Veda Jama MD, [facility] CPT- 4: 65646 04/24/2017 ([id number]) PREV VISIT EST AGE 18-39 Diagnosis: Encounter for gynecological examination (general) (routine) without abnormal findings[ICD10: Z01.419] Veda Jama MD, [facility] CPT-4: 07503 03/27/2017 ([id number]) 53632 EST. PATIENT, LEVEL III Diagnosis: Overweight[ICD10: E66.3] [facility] CPT-4: 89494 10/25/2016 ([id number]) Miscellaneous no charge Diagnosis: Overweight[ICD10: E66.3] Radha [facility] M [facility] CPT-4: 93713 09/20/2016 26194 EST. PATIENT, LEVEL IV Diagnosis: Other fatigue[ICD10: R53.83] Diagnosis: Overweight[ICD10: E66.3] Diagnosis: Generalized anxiety disorder[ICD10: F41.1] [facility] CPT-4: 64222 08/24/2016 ([id number]) OFFICE VISIT, NEW - LEVEL 4 Diagnosis: Generalized anxiety disorder[ICD10: F41.1] Diagnosis: Major depressive disorder, single episode, moderate[ICD10: F32.1] [facility] CPT-4: 31715 06/12/2016 Plan of Care Planned Activity Notes [...] over-medication. 12/08/2018 Appointment: Veda Duenas WPtel: [address] [place], [place] [phone] (30 min) [facility] 12/08/2018 Patient Education: Patient Medication Summary Completed [...] or concerns. 10/09/2018 Appointment: Veda Duenas WPtel: [phone] [facility] (15 min) Moderate 10/09/2018 Patient [...] patient. 07/18/2018 Appointment: Veda Duenas WPtel: [phone] [facility] (15 min) Moderate 07/18/2018 Patient [...] weight check. 02/28/2018 Appointment: Veda Duenas WPtel: Formerly named [facility] (30 min) Complex 02/28/2018 Patient Education: Patient Medication Summary Completed 02/28/2018 Patient Education: Obesity Completed 02/28/2018 Appointment: Veda Duenas WPtel: [address] [place], [place] [phone] (15 min) Moderate 02/27/2018 Visit Plan: [...] for weight check. 12/09/2017 Appointment: Veda Duenastel: Formerly named [facility] (15 min) Moderate 12/09/2017 Patient [...] weight check. 10/21/2017 Appointment: Veda Duenas WPtel: Formerly named [facility] (15 min) Moderate 10/21/2017 Patient Education: Patient [...] new RX. 04/24/2017 Appointment: Veda Duenas WPtel: [facility] (30 min) Complex 04/24/2017 Patient Education: Patient [...] per pharmacy. 03/27/2017 Appointment: [facility] [phone] [facility] [facility] 03/27/2017 Patient Education: Patient [...] [facility] (15 min) Moderate 10/25/2016 Patient [...] [phone] (30 min) Complex 08/24/2016 Appointment: Radha Mcgowan WPtel: Formerly named [phone] (30 min) Complex 08/24/2016 Appointment: Radha Mcgowan WPtel: [address] [place], [place] [phone] (30 min) Complex 08/24/2016 Patient Education: Patient [...] patient. 06/12/2016 Appointment: Juan M Radha WPtel: [facility] named [facility] New Patient 06/12/2016 Patient Education: Patient [...]
--- OUTSIDE RECORDS SUMMARY | 2019-07-01 06:30 | XMS REPORT | CCD ---
Author Author Veda Duenas Organization [facility] Address [address] [place] [address] Phone Care Team Providers Care Director Radio News Name Role Phone PP Unavailable CCM Unavailable Summary Purpose Interface Exchange Insurance Providers Payer name Policy type / Coverage type Covered constitution party ID Effective Begin Date Effective End Date [employer] [id number] 2018 Unknown Family history Father Diagnosis Age At Onset Diabetes Unknown Hyperlipidemia Unknown Hypertension Unknown Heart Attack Unknown Social History Social History Element Codes Description Effective Dates Marital status Unknown CJ 06/12/2016 Number of children Unknown 3 06/12/[address]: 242223280 Never smoker 06/12/[address]: 762482813 Never drinks alcohol 06/12/2016 Allergies, Adverse Reactions, [...] hydrocodone 5 mg-acetaminophen 325 mg tablet RxNorm: 744511 1-1.5 Tablet(s) PO QID as needed 01/28/2019 02/26/2019 Active hydrocodone 5 mg-acetaminophen 325 mg tablet RxNorm: 319950 1-1.5 Tablet(s) PO QID as needed 01/01/2019 01/27/2019 Inactive cyclobenzaprine 5 mg tablet RxNorm: 442348 TAKE ONE TABLET BY MOUTH THREE TIMES DAILY NEEDED FOR MUSCLE SPASM 12/16/2018 No Stop Date Active phentermine 37.5 mg tablet RxNorm: 874884 1 Tablet(s) PO daily 11/27/2018 No Stop Date Active Lexapro 10 mg tablet RxNorm: 905542 TAKE 1 TABLET BY MOUTH ONCE DAILY 11/26/2018 No Stop Date Active cyclobenzaprine 5 mg tablet RxNorm: 338425 TAKE ONE TABLET BY MOUTH THREE TIMES DAILY NEEDED FOR MUSCLE SPASM 11/12/2018 12/15/2018 Inactive hydrocodone 5 mg-acetaminophen 325 mg tablet RxNorm: 671834 1-1.5 Tablet(s) PO QID as needed 11/06/2018 12/05/2018 Inactive Lyrica 100 mg capsule RxNorm: 234090 1 Capsule(s) PO BID as needed 10/31/2018 01/28/2019 Inactive pravastatin 20 mg tablet RxNorm: 376392 1 Tablet(s) PO QPM 10/28/2018 02/24/2019 Active pravastatin 20 mg tablet RxNorm: 616448 1 Tablet(s) PO QPM 10/28/2018 10/27/2018 Inactive EEMT 1.25 mg-2.5 mg tablet RxNorm: 579637 1 Tablet(s) PO daily 10/09/2018 01/06/2019 Inactive norethindrone acetate 1 mg-ethinyl estradiol 20 mcg tablet RxNorm: 2611300 1 Tablet(s) PO daily 10/09/2018 10/03/2019 Active hydrocodone 5 mg-acetaminophen 325 mg tablet RxNorm: 729057 1-1.5 Tablet(s) PO QID as needed 10/09/2018 11/05/2018 Inactive hydrocodone 5 mg-acetaminophen 325 mg tablet RxNorm: 323212 1-1.5 Tablet(s) PO QID as needed 09/11/2018 10/08/2018 Inactive phentermine 37.5 mg tablet RxNorm: 783066 1 Tablet(s) PO daily 08/29/2018 11/26/2018 Inactive cyclobenzaprine 5 mg tablet RxNorm: 925973 TAKE ONE TABLET BY MOUTH THREE TIMES DAILY NEEDED FOR MUSCLE SPASM 08/27/2018 11/11/2018 Inactive hydrocodone 5 mg-acetaminophen 325 mg tablet RxNorm: 638053 1-1.5 Tablet(s) PO QID as needed 08/14/2018 09/10/2018 Inactive Lexapro 10 mg tablet RxNorm: 177060 1 Tablet(s) PO daily 07/18/2018 08/16/2018 Inactive diazepam 10 mg tablet RxNorm: 511832 1 Tablet(s) PO TID as needed anxiety 07/11/2018 07/14/2018 Inactive Zorvolex 35 mg capsule RxNorm: 1144168 1 Capsule(s) PO TID 06/18/2018 No Stop Date Active hydrocodone 5 mg-acetaminophen 325 mg tablet RxNorm: 106456 1-1.5 Tablet(s) PO QID as needed 06/18/2018 07/17/2018 Inactive cyclobenzaprine 5 mg tablet RxNorm: 324219 TAKE ONE TABLET BY MOUTH THREE TIMES DAILY NEEDED FOR MUSCLE SPASM 06/04/2018 08/26/2018 Inactive hydrocodone 5 mg-acetaminophen 325 mg tablet RxNorm: 984171 1-1.5 Tablet(s) PO QID as needed 05/26/2018 06/17/2018 Inactive cyclobenzaprine 5 mg tablet RxNorm: 740802 TAKE ONE TABLET BY MOUTH THREE TIMES DAILY NEEDED FOR MUSCLE SPASM 05/07/2018 06/03/2018 Inactive ibuprofen 800 mg tablet RxNorm: 429366 TAKE ONE TABLET BY MOUTH THREE TIMES DAILY NEEDED 04/28/2018 No Stop Date Active hydrocodone 5 mg-acetaminophen 325 mg tablet RxNorm: 259227 1-1.5 Tablet(s) PO QID as needed 04/28/2018 05/25/2018 Inactive diazepam 10 mg tablet RxNorm: 290507 1 Tablet(s) PO TID as needed anxiety 04/22/2018 06/19/2018 Inactive hydrocodone 5 mg-acetaminophen 325 mg tablet RxNorm: 287684 1-1.5 Tablet(s) PO QID as needed 03/25/2018 04/23/2018 Inactive cyclobenzaprine 5 mg tablet RxNorm: 187770 TAKE ONE TABLET BY MOUTH THREE TIMES DAILY NEEDED FOR MUSCLE SPASM 03/17/2018 05/06/2018 Inactive hydrocodone 5 mg-acetaminophen 325 mg tablet RxNorm: 521849 1-1.5 Tablet(s) PO QID as needed 03/02/2018 03/24/2018 Inactive phentermine 37.5 mg tablet RxNorm: 593011 1 Tablet(s) PO daily 03/02/2018 08/28/2018 Inactive hydrocodone 5 mg-acetaminophen 325 mg tablet RxNorm: 309055 1-1.5 Tablet(s) PO QID as needed 02/03/2018 03/01/2018 Inactive diazepam 10 mg tablet RxNorm: 769573 1 Tablet(s) PO TID as needed anxiety 01/01/2018 02/28/2018 Inactive hydrocodone 5 mg-acetaminophen 325 mg tablet RxNorm: 042958 1-1.5 Tablet(s) PO QID as needed 12/09/2017 01/07/2018 Inactive ibuprofen 800 mg tablet RxNorm: 150298 1 Tablet(s) PO TID as needed 12/09/2017 01/07/2018 Inactive Lyrica 100 mg capsule RxNorm: 241720 1 Capsule(s) PO BID as needed 12/09/2017 03/07/2018 Inactive cyclobenzaprine 5 mg tablet RxNorm: 260862 TAKE ONE TABLET BY MOUTH THREE TIMES DAILY NEEDED FOR MUSCLE SPASM 12/03/2017 03/16/2018 Inactive hydrocodone 5 mg-acetaminophen 325 mg tablet RxNorm: 317948 1-1.5 Tablet(s) PO QID as needed 10/21/2017 11/19/2017 Inactive hydrocodone 7.5 mg-acetaminophen 325 mg tablet RxNorm: 660628 1 Tablet(s) PO QID as needed 09/26/2017 10/20/2017 Inactive phentermine 37.5 mg tablet RxNorm: 018660 1 Tablet(s) PO daily 09/26/2017 10/01/2017 Inactive Lyrica 100 mg capsule RxNorm: 337193 1 Capsule(s) PO BID as needed 09/12/2017 12/08/2017 Inactive hydrocodone 7.5 mg-acetaminophen 325 mg tablet RxNorm: 009453 1 Tablet(s) PO QID as needed 08/27/2017 09/23/2017 Inactive Belviq XR 20 mg tablet,extended release RxNorm: 4745841 1 Tablet(s) PO daily 08/27/2017 09/23/2017 Inactive cyclobenzaprine 5 mg tablet RxNorm: 135110 1 Tablet(s) PO TID as needed muscle spasms 08/19/2017 08/23/2017 Inactive hydrocodone 7.5 mg-acetaminophen 325 mg tablet RxNorm: 267836 1 Tablet(s) PO QID as needed 08/02/2017 08/26/2017 Inactive hydrocodone 7.5 mg-acetaminophen 325 mg tablet RxNorm: 436469 1 Tablet(s) PO TID as needed 08/02/2017 08/01/2017 Inactive diazepam 10 mg tablet RxNorm: 097253 1 Tablet(s) PO TID as needed anxiety 07/24/2017 02/02/2018 Inactive hydrocodone 7.5 mg-acetaminophen 325 mg tablet RxNorm: 557681 1 Tablet(s) PO TID as needed 07/11/2017 08/01/2017 Inactive Lyrica 100 mg capsule RxNorm: 212646 1 Capsule(s) PO BID as needed 06/24/2017 09/20/2017 Inactive hydrocodone 5 mg-acetaminophen 325 mg tablet RxNorm: 496562 1 Tablet(s) PO TID 06/24/2017 07/30/2017 Inactive prednisone 10 mg tablet RxNorm: 966227 1 Tablet(s) PO daily 06/18/2017 06/17/2017 Inactive 6-5-4-3-2-1 then stop prednisone 10 mg tablet RxNorm: 404311 1 Tablet(s) PO daily 06/18/2017 08/25/2017 Inactive 6-5-4-3-2-1 then stop Bactrim DS 800 mg-160 mg tablet RxNorm: 108296 1 Tablet(s) PO BID 06/11/2017 06/14/2017 Inactive Bactrim DS 800 mg-160 mg tablet RxNorm: 675132 1 Tablet(s) PO BID 06/03/2017 06/10/2017 Inactive mupirocin 2 % topical ointment RxNorm: 000326 1 Application TOP BID 06/03/2017 08/25/2017 Inactive Lyrica 100 mg capsule RxNorm: 008173 1 Capsule(s) PO BID as needed 05/27/2017 06/23/2017 Inactive Keflex 500 mg capsule RxNorm: 933918 1 Capsule(s) PO TID 05/27/2017 06/02/2017 Inactive Lexapro 10 mg tablet RxNorm: 094311 1 Tablet(s) PO daily 05/27/2017 08/25/2017 Inactive hydrocodone 5 mg-acetaminophen 325 mg tablet RxNorm: 037457 1 Tablet(s) PO TID 05/27/2017 06/23/2017 Inactive hydrocodone 7.5 mg-acetaminophen 325 mg tablet RxNorm: 947689 1 Tablet(s) PO TID as needed 05/13/2017 05/25/2017 Inactive hydrocodone 7.5 mg-acetaminophen 325 mg tablet RxNorm: 504832 1 Tablet(s) PO TID as needed 05/13/2017 05/12/2017 Inactive cyclobenzaprine 5 mg tablet RxNorm: 108946 TAKE ONE TABLET BY MOUTH THREE TIMES DAILY NEEDED FOR MUSCLE SPASM 05/01/2017 05/05/2017 Inactive hydrocodone 5 mg-acetaminophen 325 mg tablet RxNorm: 118932 1 Tablet(s) PO TID as needed 04/24/2017 05/12/2017 Inactive cyclobenzaprine 5 mg tablet RxNorm: 707703 1 Tablet(s) PO TID as needed muscle spasms 04/24/2017 04/28/2017 Inactive diazepam 10 mg tablet RxNorm: 687745 1 Tablet(s) PO TID as needed anxiety 02/22/2017 04/19/2017 Inactive norethindrone acetate 1 mg-ethinyl estradiol 20 mcg tablet RxNorm: 8266123 1 Tablet(s) PO daily 12/18/2016 07/15/2017 Inactive EEMT 1.25 mg-2.5 mg tablet RxNorm: 205377 1 Tablet(s) PO daily 12/06/2016 03/05/2017 Inactive EEMT 1.25 mg-2.5 mg tablet RxNorm: 692144 1 Tablet(s) PO daily 12/06/2016 12/05/2016 Inactive Lexapro 10 mg tablet RxNorm: 897703 1 Tablet(s) PO daily 12/06/2016 05/04/2017 Inactive diazepam 10 mg tablet RxNorm: 654452 1 Tablet(s) PO TID 11/09/2016 12/07/2016 Inactive phentermine 37.5 mg tablet RxNorm: 040725 1 Tablet(s) PO daily 10/25/2016 08/23/2017 Inactive EEMT 1.25 mg-2.5 mg tablet RxNorm: 140031 1 Tablet(s) PO daily 10/25/2016 12/05/2016 Inactive phentermine 37.5 mg tablet RxNorm: 375193 1 Tablet(s) PO daily 09/20/2016 10/24/2016 Inactive Lexapro 10 mg tablet RxNorm: 116422 1 Tablet(s) PO daily 07/10/2016 12/05/2016 Inactive Lexapro 10 mg tablet RxNorm: 908156 1 Tablet(s) PO daily 06/12/2016 07/09/2016 Inactive norethindrone acetate 1 mg-ethinyl estradiol 20 mcg tablet RxNorm: 4689719 1 Tablet(s) PO daily 06/12/2016 12/17/2016 Inactive hydrocodone 10 mg-acetaminophen 325 mg tablet RxNorm: 313300 1 Tablet(s) PO TID No Start Date 05/12/2017 Inactive phentermine 37.5 mg tablet RxNorm: 625966 1 Tablet(s) PO daily No Start Date 09/19/2016 Inactive norethindrone acetate 1 mg-ethinyl estradiol 20 mcg tablet RxNorm: 7338325 1 Tablet(s) PO daily No Start Date 06/11/2016 Inactive EEMT 1.25 mg-2.5 mg tablet RxNorm: 145453 1 Tablet(s) PO daily No Start Date [...] Visit Effective Dates Notes medication follow up 12/08/2018 hydrocodone medication follow [...] Result Effective Dates Constitutional No recent illness 12/08/2018 Constitutional No [...] normal 12/09/2017 None Full Exam - General 1995 Ears/Nose/Throat lips/teeth/gingiva Overall: benign lips 12/09/2017 None Full Exam - General 1994 Ears/Nose/Throat oral cavity/pharynx/larynx Overall: oral mucosa clear 12/09/2017 None Full Exam - General 1995 Ears/Nose/Throat [...] time 03/27/2017 None Full Exam - General 1995 Constitutional general appearance Overall: well developed 10/25/2016 [...] No Procedures data Vital Signs Date Vital 12/08/2018 Blood Pressure 1: 130/74 Code: 8480-6 BMI: 30.7 Code: 61521-5 Heart Rate 1: 82 bpm Height: 5'2" SpO2: 97% Weight: 168 lbs 11/27/2018 Blood Pressure 1: 130/74 Code: 8480-6 Weight: 168 lbs 10/09/2018 Blood Pressure 1: 128/74 Code: 8480-6 BMI: 31.1 Code: 94491-0 Heart Rate 1: 81 bpm Height: 5'2" SpO2: 97% Weight: 170 lbs 08/29/2018 Blood Pressure 1: 120/70 Code: 8480-6 BMI: 31.1 Code: 26675-7 Heart Rate 1: 65 bpm Height: 5'2" Weight: 170 lbs 07/18/2018 Blood Pressure 1: 126/88 Code: 8480-6 Heart Rate 1: 78 bpm Height: SpO2: 97% Weight: 07/16/2018 Blood Pressure 1: 130/78 Code: 8480-6 Heart Rate 1: 84 bpm Weight: 172 lbs 06/18/2018 Blood Pressure 1: 128/80 Code: 8480-6 BMI: 31.1 Code: 56080-2 Heart Rate 1: 80 bpm Height: 5'2" SpO2: 97% Weight: 170 lbs 02/28/2018 Blood Pressure 1: 120/78 Code: 8480-6 BMI: 31.6 Code: 72463-3 Heart Rate 1: 66 bpm Height: 5'2" SpO2: 98% Weight: 173 lbs 12/09/2017 Blood Pressure 1: 116/74 Code: 8480-6 BMI: 31.5 Code: 47492-0 Heart Rate 1: 74 bpm Height: 5'2" SpO2: 95% Weight: 172 lbs 10/21/2017 Blood Pressure 1: 136/82 Code: 8480-6 BMI: 30.4 Code: 23956-5 Heart Rate 1: 79 bpm Height: 5'2" SpO2: 97% Weight: 166 lbs 09/26/2017 Blood Pressure 1: 122/80 Code: 8480-6 BMI: 30.4 Code: 42419-3 Heart Rate 1: 63 bpm Height: 5'2" SpO2: 98% Weight: 166 lbs 08/27/2017 Blood Pressure 1: 132/70 Code: 8480-6 BMI: 30.7 Code: 61605-0 Heart Rate 1: 89 bpm Height: 5'2" SpO2: 98% Weight: 168 lbs 05/27/2017 Blood Pressure 1: 132/72 Code: 8480-6 BMI: 28.9 Code: 67392-2 Heart Rate 1: 72 bpm Height: 5'2" SpO2: 98% Weight: 158 lbs 04/24/2017 Blood Pressure 1: 140/76 Code: 8480-6 BMI: 29.3 Code: 84136-8 Heart Rate 1: 77 bpm Height: 5'2" SpO2: 97% Weight: 160 lbs 03/27/2017 Blood Pressure 1: 128/74 Code: 8480-6 BMI: 29.1 Code: 62649-4 Heart Rate 1: 74 bpm Height: 5'2" SpO2: 98% Temperature: 36.8 (C) / 98.3 (F) Weight: 159 lbs 10/25/2016 Blood Pressure 1: 116/74 Code: 8480-6 BMI: 28.9 Code: 96610-8 Heart Rate 1: 68 bpm Height: 5'2" SpO2: 99% Weight: 158 lbs 09/20/2016 Blood Pressure 1: 116/70 Code: 8480-6 Heart Rate 1: 72 bpm Weight: 150 lbs 08/24/2016 Blood Pressure 1: 118/62 Code: 8480-6 BMI: 27.6 Code: 47478-3 Heart Rate 1: 63 bpm Height: 5'2" SpO2: 99% Weight: 151 lbs 06/12/2016 Blood Pressure 1: 122/74 Code: 8480-6 BMI: 26.9 Code: 04861-6 Heart Rate 1: 52 bpm Height: 5'2" SpO2: 97% Weight: 147 lbs Functional Status No Functional Status data History of Present Illness Symptom Name Status Result Effective Date Notes Location oral intake 12/08/2018 None Quality chronic [...] data Encounters Encounter Performer Location Codes Date 60945 EST. PATIENT, LEVEL III Diagnosis: Chronic pain syndrome[ICD10: G89.4] [facility] CPT- 4: 97452 12/08/2018 ([id number]) Miscellaneous no charge Diagnosis: Overweight[ICD10: E66.3] [facility], [facility] CPT-4: 33369 11/27/2018 40599 EST. PATIENT, LEVEL III Diagnosis: Chronic pain syndrome[ICD10: G89.4] Diagnosis: Menopausal and female climacteric states[ICD10: N95.1] [facility], [facility] CPT-4: 91257 10/09/2018 ([id number]) Miscellaneous no charge Diagnosis: Overweight[ICD10: E66.3] [facility], [facility] CPT-4: 86404 08/29/2018 11922 EST. PATIENT, LEVEL III Diagnosis: Generalized anxiety disorder[ICD10: F41.1] Diagnosis: Major depressive disorder, single episode, moderate[ICD10: F32.1] [facility], [facility] CPT-4: 81801 07/18/2018 ([id number]) Miscellaneous no charge Diagnosis: Overweight[ICD10: E66.3] [facility], [facility] CPT-4: 10211 07/16/2018 64414 EST. PATIENT, LEVEL III Diagnosis: Chronic pain syndrome[ICD10: G89.4] Diagnosis: Overweight[ICD10: E66.3] [facility], [facility] CPT-4: 33797 06/18/2018 60815 EST. PATIENT, LEVEL IV Diagnosis: Chronic pain syndrome[ICD10: G89.4] Diagnosis: Overweight[ICD10: E66.3] [facility], [facility] CPT-4: 57931 02/28/2018 06725 EST. PATIENT, LEVEL III Diagnosis: Chronic pain syndrome[ICD10: G89.4] Diagnosis: Overweight[ICD10: E66.3] [facility], [facility] CPT-4: 22720 12/09/2017 83042 EST. PATIENT, LEVEL III Diagnosis: Chronic pain syndrome[ICD10: G89.4] Diagnosis: Overweight[ICD10: E66.3] [facility], [facility] CPT-4: 51130 10/21/2017 ([id number]) Miscellaneous no charge Diagnosis: Overweight[ICD10: E66.3] [facility], [facility] CPT-4: 43050 09/26/2017 34856 EST. PATIENT, LEVEL III Diagnosis: Chronic pain syndrome[ICD10: G89.4] Diagnosis: Overweight[ICD10: E66.3] [facility], [facility] CPT-4: 96351 08/27/2017 15188 EST. PATIENT, LEVEL III Diagnosis: Chronic pain syndrome[ICD10: G89.4] Diagnosis: Generalized anxiety disorder[ICD10: F41.1] Diagnosis: Major depressive disorder, single episode, moderate[ICD10: F32.1] Diagnosis: Cellulitis of right lower limb[ICD10: L03.115] [facility] MD, [facility] CPT-4: 45783 05/27/2017 ([id number]) 06578 EST. PATIENT, LEVEL IV Diagnosis: Generalized anxiety disorder[ICD10: F41.1] Diagnosis: Major depressive disorder, single episode, moderate[ICD10: F32.1] Diagnosis: Menopausal and female climacteric states[ICD10: N95.1] Diagnosis: Chronic pain syndrome[ICD10: G89.4] [facility], [facility] CPT- 4: 75643 04/24/2017 ([id number]) PREV VISIT EST AGE 18-39 Diagnosis: Encounter for gynecological examination (general) (routine) without abnormal findings[ICD10: Z01.419] [facility], [facility] CPT-4: 42601 03/27/2017 ([id number]) 31251 EST. PATIENT, LEVEL III Diagnosis: Overweight[ICD10: E66.3] [facility], [facility] CPT-4: 26509 10/25/2016 ([id number]) Miscellaneous no charge Diagnosis: Overweight[ICD10: E66.3] [facility] MD, [facility] CPT-4: 82877 09/20/2016 76789 EST. PATIENT, LEVEL IV Diagnosis: Other fatigue[ICD10: R53.83] Diagnosis: Overweight[ICD10: E66.3] Diagnosis: Generalized anxiety disorder[ICD10: F41.1] [facility] CPT-4: 45117 08/24/2016 ([id number]) OFFICE VISIT, NEW - LEVEL 4 Diagnosis: Generalized anxiety disorder[ICD10: F41.1] Diagnosis: Major depressive disorder, single episode, moderate[ICD10: F32.1] [facility] CPT-4: 56688 06/12/2016 Plan of Care Planned Activity Notes Codes Status Date Visit Plan: Chronic Pain Syndrome - pt has chronic pain - has been maintained on current medications, has not sought out other medications, only uses PRN pain medications as directed, and understands the consequences of over-medication. 12/08/2018 Appointment: Veda Duenas WPtel: [facility]9 [facility]66[facility] (30 min) Complex 12/08/2018 Patient Education: Patient [...] concerns. 10/09/2018 Appointment: Veda Duenas WPtel: [phone] [facility] (15 min) Moderate 10/09/2018 Patient [...] this patient. 07/18/2018 Appointment: Veda Duenas WPtel: [facility]5 [facility] (15 min) Moderate 07/18/2018 Patient [...] weight check. 06/18/2018 Appointment: Veda Duenas WPtel: [facility]5 [facility] (15 min) Moderate 06/18/2018 Patient [...] weight check. 02/28/2018 Appointment: Veda Duenas WPtel: [facility]5 [facility] (30 min) Complex 02/28/2018 Patient Education: Patient Medication Summary Completed 02/28/2018 Patient Education: Obesity Completed 02/28/2018 Appointment: Veda Duenas WPtel: [facility]6 [facility] (15 min) Moderate 02/27/2018 Visit [...] weight check. 12/09/2017 Appointment: Veda Duenas WPtel: [facility]5 [facility] (15 min) Moderate 12/09/2017 Patient [...] weight check. 10/21/2017 Appointment: Veda Duenas WPtel: [phone] [facility] (15 min) Moderate 10/21/2017 Patient Education: Patient Medication Summary Completed 10/21/2017 Patient Education: Obesity Completed 10/21/2017 Appointment: Nurse Visit 09/26/2017 Patient Education: Patient Medication Summary Completed 09/26/2017 Appointment: Veda Duenas WPtel: [facility] ([facility] 08/30/2017 Visit Plan: [...] discharge. 05/27/2017 Appointment: Veda Duenas WPtel: [phone] [facility] (30 min) Complex 05/27/2017 Patient Education: [...] RX. 04/24/2017 Appointment: [facility]el[phone] (30 min) Complex 04/24/2017 Patient Education: [...] per pharmacy. 03/27/2017 Appointment: Veda Duenas WPtel: [phone] [facility] 03/27/2017 Patient Education: Patient Medication Summary Completed 03/27/2017 Care Plan: BMI Above normal followup SELF-MGMT EDUC & TRAIN 1 PT Pending 11/07/2016 Visit Plan: Obesity - chronic issue with this patient. The pt has been counseled about diet changes, calorie restriction, and need to exercise. Pt will RTC in one month for weight check. 10/25/2016 Appointment: Veda Duenas WPtel: [phone] [facility] (15 min) Moderate 10/25/2016 Patient Education: Patient [...] weight check. 08/24/2016 Appointment: Radha Mcgowan WPtel: [phone] [facility] [place] [address] (30 min) Complex 08/24/2016 Appointment: Radha Mcgowan WPtel: [facility]3 [facility] [place] [address] (30 min) Complex 08/24/2016 Appointment: Radha Mcgowan WPtel: [address] [place], [place] [id number] [place] [address] (30 min) Complex 08/24/2016 Patient Education: Patient [...] this patient. 06/12/2016 Appointment: Radha Mcgowan WPtel: [address] [place], [place] [id number] [place] [address] New Patient 06/12/2016 Patient Education: Patient Medication [...]
--- OUTSIDE RECORDS SUMMARY | 2019-07-01 06:31 | XMS REPORT | CCD ---
Author Author Veda Duenas Organization [facility] Address [address] [place] [address] Phone Care Team Providers Care Functional Support Analyst Name Role Phone PP Unavailable CCM Unavailable Summary Purpose Interface Exchange Insurance Providers Payer name Policy type / Coverage type Covered constitution party ID Effective Begin Date Effective End Date [employer] [id number] 2018 Unknown Family history Father Diagnosis Age At Onset Diabetes Unknown Hyperlipidemia Unknown Hypertension Unknown Heart Attack Unknown Social History Social History Element Codes Description Effective Dates Marital status Unknown CJ 06/12/2016 Number of children Unknown 3 06/12/[address]: 427212913 Never smoker 06/12/[address]: 987800516 Never drinks alcohol 06/12/2016 Allergies, Adverse Reactions, [...] hydrocodone 5 mg-acetaminophen 325 mg tablet RxNorm: 076361 1-1.5 Tablet(s) PO QID as needed 01/01/2019 01/30/2019 Active cyclobenzaprine 5 mg tablet RxNorm: 102201 TAKE ONE TABLET BY MOUTH THREE TIMES DAILY NEEDED FOR MUSCLE SPASM 12/16/2018 No Stop Date Active phentermine 37.5 mg tablet RxNorm: 277650 1 Tablet(s) PO daily 11/27/2018 No Stop Date Active Lexapro 10 mg tablet RxNorm: 943699 TAKE 1 TABLET BY MOUTH ONCE DAILY 11/26/2018 No Stop Date Active cyclobenzaprine 5 mg tablet RxNorm: 917348 TAKE ONE TABLET BY MOUTH THREE TIMES DAILY NEEDED FOR MUSCLE SPASM 11/12/2018 12/15/2018 Inactive hydrocodone 5 mg-acetaminophen 325 mg tablet RxNorm: 159350 1-1.5 Tablet(s) PO QID as needed 11/06/2018 12/05/2018 Inactive Lyrica 100 mg capsule RxNorm: 376923 1 Capsule(s) PO BID as needed 10/31/2018 01/28/2019 Active pravastatin 20 mg tablet RxNorm: 799196 1 Tablet(s) PO QPM 10/28/2018 02/24/2019 Active pravastatin 20 mg tablet RxNorm: 938063 1 Tablet(s) PO QPM 10/28/2018 10/27/2018 Inactive EEMT 1.25 mg-2.5 mg tablet RxNorm: 419196 1 Tablet(s) PO daily 10/09/2018 01/06/2019 Active norethindrone acetate 1 mg-ethinyl estradiol 20 mcg tablet RxNorm: 8461679 1 Tablet(s) PO daily 10/09/2018 10/03/2019 Active hydrocodone 5 mg-acetaminophen 325 mg tablet RxNorm: 684092 1-1.5 Tablet(s) PO QID as needed 10/09/2018 11/05/2018 Inactive hydrocodone 5 mg-acetaminophen 325 mg tablet RxNorm: 102304 1-1.5 Tablet(s) PO QID as needed 09/11/2018 10/08/2018 Inactive phentermine 37.5 mg tablet RxNorm: 724408 1 Tablet(s) PO daily 08/29/2018 11/26/2018 Inactive cyclobenzaprine 5 mg tablet RxNorm: 371954 TAKE ONE TABLET BY MOUTH THREE TIMES DAILY NEEDED FOR MUSCLE SPASM 08/27/2018 11/11/2018 Inactive hydrocodone 5 mg-acetaminophen 325 mg tablet RxNorm: 176853 1-1.5 Tablet(s) PO QID as needed 08/14/2018 09/10/2018 Inactive Lexapro 10 mg tablet RxNorm: 966531 1 Tablet(s) PO daily 07/18/2018 08/16/2018 Inactive diazepam 10 mg tablet RxNorm: 330848 1 Tablet(s) PO TID as needed anxiety 07/11/2018 07/14/2018 Inactive Zorvolex 35 mg capsule RxNorm: 4740441 1 Capsule(s) PO TID 06/18/2018 No Stop Date Active hydrocodone 5 mg-acetaminophen 325 mg tablet RxNorm: 512545 1-1.5 Tablet(s) PO QID as needed 06/18/2018 07/17/2018 Inactive cyclobenzaprine 5 mg tablet RxNorm: 431328 TAKE ONE TABLET BY MOUTH THREE TIMES DAILY NEEDED FOR MUSCLE SPASM 06/04/2018 08/26/2018 Inactive hydrocodone 5 mg-acetaminophen 325 mg tablet RxNorm: 198221 1-1.5 Tablet(s) PO QID as needed 05/26/2018 06/17/2018 Inactive cyclobenzaprine 5 mg tablet RxNorm: 842662 TAKE ONE TABLET BY MOUTH THREE TIMES DAILY NEEDED FOR MUSCLE SPASM 05/07/2018 06/03/2018 Inactive ibuprofen 800 mg tablet RxNorm: 643966 TAKE ONE TABLET BY MOUTH THREE TIMES DAILY NEEDED 04/28/2018 No Stop Date Active hydrocodone 5 mg-acetaminophen 325 mg tablet RxNorm: 680978 1-1.5 Tablet(s) PO QID as needed 04/28/2018 05/25/2018 Inactive diazepam 10 mg tablet RxNorm: 368750 1 Tablet(s) PO TID as needed anxiety 04/22/2018 06/19/2018 Inactive hydrocodone 5 mg-acetaminophen 325 mg tablet RxNorm: 598809 1-1.5 Tablet(s) PO QID as needed 03/25/2018 04/23/2018 Inactive cyclobenzaprine 5 mg tablet RxNorm: 775903 TAKE ONE TABLET BY MOUTH THREE TIMES DAILY NEEDED FOR MUSCLE SPASM 03/17/2018 05/06/2018 Inactive hydrocodone 5 mg-acetaminophen 325 mg tablet RxNorm: 712506 1-1.5 Tablet(s) PO QID as needed 03/02/2018 03/24/2018 Inactive phentermine 37.5 mg tablet RxNorm: 795712 1 Tablet(s) PO daily 03/02/2018 08/28/2018 Inactive hydrocodone 5 mg-acetaminophen 325 mg tablet RxNorm: 623851 1-1.5 Tablet(s) PO QID as needed 02/03/2018 03/01/2018 Inactive diazepam 10 mg tablet RxNorm: 873284 1 Tablet(s) PO TID as needed anxiety 01/01/2018 02/28/2018 Inactive hydrocodone 5 mg-acetaminophen 325 mg tablet RxNorm: 343744 1-1.5 Tablet(s) PO QID as needed 12/09/2017 01/07/2018 Inactive ibuprofen 800 mg tablet RxNorm: 227197 1 Tablet(s) PO TID as needed 12/09/2017 01/07/2018 Inactive Lyrica 100 mg capsule RxNorm: 357738 1 Capsule(s) PO BID as needed 12/09/2017 03/07/2018 Inactive cyclobenzaprine 5 mg tablet RxNorm: 755062 TAKE ONE TABLET BY MOUTH THREE TIMES DAILY NEEDED FOR MUSCLE SPASM 12/03/2017 03/16/2018 Inactive hydrocodone 5 mg-acetaminophen 325 mg tablet RxNorm: 588335 1-1.5 Tablet(s) PO QID as needed 10/21/2017 11/19/2017 Inactive hydrocodone 7.5 mg-acetaminophen 325 mg tablet RxNorm: 853218 1 Tablet(s) PO QID as needed 09/26/2017 10/20/2017 Inactive phentermine 37.5 mg tablet RxNorm: 587438 1 Tablet(s) PO daily 09/26/2017 10/01/2017 Inactive Lyrica 100 mg capsule RxNorm: 182117 1 Capsule(s) PO BID as needed 09/12/2017 12/08/2017 Inactive hydrocodone 7.5 mg-acetaminophen 325 mg tablet RxNorm: 884885 1 Tablet(s) PO QID as needed 08/27/2017 09/23/2017 Inactive Belviq XR 20 mg tablet,extended release RxNorm: 8103321 1 Tablet(s) PO daily 08/27/2017 09/23/2017 Inactive cyclobenzaprine 5 mg tablet RxNorm: 514025 1 Tablet(s) PO TID as needed muscle spasms 08/19/2017 08/23/2017 Inactive hydrocodone 7.5 mg-acetaminophen 325 mg tablet RxNorm: 984401 1 Tablet(s) PO QID as needed 08/02/2017 08/26/2017 Inactive hydrocodone 7.5 mg-acetaminophen 325 mg tablet RxNorm: 571253 1 Tablet(s) PO TID as needed 08/02/2017 08/01/2017 Inactive diazepam 10 mg tablet RxNorm: 297852 1 Tablet(s) PO TID as needed anxiety 07/24/2017 02/02/2018 Inactive hydrocodone 7.5 mg-acetaminophen 325 mg tablet RxNorm: 025156 1 Tablet(s) PO TID as needed 07/11/2017 08/01/2017 Inactive Lyrica 100 mg capsule RxNorm: 434162 1 Capsule(s) PO BID as needed 06/24/2017 09/20/2017 Inactive hydrocodone 5 mg-acetaminophen 325 mg tablet RxNorm: 867679 1 Tablet(s) PO TID 06/24/2017 07/30/2017 Inactive prednisone 10 mg tablet RxNorm: 740470 1 Tablet(s) PO daily 06/18/2017 06/17/2017 Inactive 6-5-4-3-2-1 then stop prednisone 10 mg tablet RxNorm: 509608 1 Tablet(s) PO daily 06/18/2017 08/25/2017 Inactive 6-5-4-3-2-1 then stop Bactrim DS 800 mg-160 mg tablet RxNorm: 015319 1 Tablet(s) PO BID 06/11/2017 06/14/2017 Inactive Bactrim DS 800 mg-160 mg tablet RxNorm: 908284 1 Tablet(s) PO BID 06/03/2017 06/10/2017 Inactive mupirocin 2 % topical ointment RxNorm: 350740 1 Application TOP BID 06/03/2017 08/25/2017 Inactive Lyrica 100 mg capsule RxNorm: 384601 1 Capsule(s) PO BID as needed 05/27/2017 06/23/2017 Inactive Keflex 500 mg capsule RxNorm: 516650 1 Capsule(s) PO TID 05/27/2017 06/02/2017 Inactive Lexapro 10 mg tablet RxNorm: 115168 1 Tablet(s) PO daily 05/27/2017 08/25/2017 Inactive hydrocodone 5 mg-acetaminophen 325 mg tablet RxNorm: 422748 1 Tablet(s) PO TID 05/27/2017 06/23/2017 Inactive hydrocodone 7.5 mg-acetaminophen 325 mg tablet RxNorm: 279645 1 Tablet(s) PO TID as needed 05/13/2017 05/25/2017 Inactive hydrocodone 7.5 mg-acetaminophen 325 mg tablet RxNorm: 491681 1 Tablet(s) PO TID as needed 05/13/2017 05/12/2017 Inactive cyclobenzaprine 5 mg tablet RxNorm: 309108 TAKE ONE TABLET BY MOUTH THREE TIMES DAILY NEEDED FOR MUSCLE SPASM 05/01/2017 05/05/2017 Inactive hydrocodone 5 mg-acetaminophen 325 mg tablet RxNorm: 742949 1 Tablet(s) PO TID as needed 04/24/2017 05/12/2017 Inactive cyclobenzaprine 5 mg tablet RxNorm: 415680 1 Tablet(s) PO TID as needed muscle spasms 04/24/2017 04/28/2017 Inactive diazepam 10 mg tablet RxNorm: 954342 1 Tablet(s) PO TID as needed anxiety 02/22/2017 04/19/2017 Inactive norethindrone acetate 1 mg-ethinyl estradiol 20 mcg tablet RxNorm: 7862338 1 Tablet(s) PO daily 12/18/2016 07/15/2017 Inactive EEMT 1.25 mg-2.5 mg tablet RxNorm: 691945 1 Tablet(s) PO daily 12/06/2016 03/05/2017 Inactive EEMT 1.25 mg-2.5 mg tablet RxNorm: 507420 1 Tablet(s) PO daily 12/06/2016 12/05/2016 Inactive Lexapro 10 mg tablet RxNorm: 121048 1 Tablet(s) PO daily 12/06/2016 05/04/2017 Inactive diazepam 10 mg tablet RxNorm: 966712 1 Tablet(s) PO TID 11/09/2016 12/07/2016 Inactive phentermine 37.5 mg tablet RxNorm: 071392 1 Tablet(s) PO daily 10/25/2016 08/23/2017 Inactive EEMT 1.25 mg-2.5 mg tablet RxNorm: 024135 1 Tablet(s) PO daily 10/25/2016 12/05/2016 Inactive phentermine 37.5 mg tablet RxNorm: 700638 1 Tablet(s) PO daily 09/20/2016 10/24/2016 Inactive Lexapro 10 mg tablet RxNorm: 785110 1 Tablet(s) PO daily 07/10/2016 12/05/2016 Inactive Lexapro 10 mg tablet RxNorm: 576403 1 Tablet(s) PO daily 06/12/2016 07/09/2016 Inactive norethindrone acetate 1 mg-ethinyl estradiol 20 mcg tablet RxNorm: 7364068 1 Tablet(s) PO daily 06/12/2016 12/17/2016 Inactive hydrocodone 10 mg-acetaminophen 325 mg tablet RxNorm: 698407 1 Tablet(s) PO TID No Start Date 05/12/2017 Inactive phentermine 37.5 mg tablet RxNorm: 675435 1 Tablet(s) PO daily No Start Date 09/19/2016 Inactive norethindrone acetate 1 mg-ethinyl estradiol 20 mcg tablet RxNorm: 4742198 1 Tablet(s) PO daily No Start Date 06/11/2016 Inactive EEMT 1.25 mg-2.5 mg tablet RxNorm: 167006 1 Tablet(s) PO daily No Start Date [...] clear 02/28/2018 None Full Exam - General 1995 Eyes conjunctiva/eyelids Overall: cornea clear 02/28/2018 None Full Exam - General 1994 Eyes conjunctiva/eyelids Overall: eyelids normal 02/28/2018 None Full Exam - General 1995 Ears/Nose/Throat lips/teeth/gingiva Overall: benign lips 02/28/2018 None [...] clear 10/21/2017 None Full Exam - General 1995 [...] 1: 130/74 Code: 8480-6 BMI: 30.7 Code: 27736-0 Heart Rate 1: 82 bpm Height: 5'2" SpO2: 97% Weight: 168 lbs 11/27/2018 Blood Pressure 1: 130/74 Code: 8480-6 Weight: 168 lbs 10/09/2018 Blood Pressure 1: 128/74 Code: 8480-6 BMI: 31.1 Code: 44793-7 Heart Rate 1: 81 bpm Height: 5'2" SpO2: 97% Weight: 170 lbs 08/29/2018 Blood Pressure 1: 120/70 Code: 8480-6 BMI: 31.1 Code: 54136-0 Heart Rate 1: 65 bpm Height: 5'2" Weight: 170 lbs 07/18/2018 Blood Pressure 1: 126/88 Code: 8480-6 Heart Rate 1: 78 bpm Height: SpO2: 97% Weight: 07/16/2018 Blood Pressure 1: 130/78 Code: 8480-6 Heart Rate 1: 84 bpm Weight: 172 lbs 06/18/2018 Blood Pressure 1: 128/80 Code: 8480-6 BMI: 31.1 Code: 68363-7 Heart Rate 1: 80 bpm Height: 5'2" SpO2: 97% Weight: 170 lbs 02/28/2018 Blood Pressure 1: 120/78 Code: 8480-6 BMI: 31.6 Code: 81968-8 Heart Rate 1: 66 bpm Height: 5'2" SpO2: 98% Weight: 173 lbs 12/09/2017 Blood Pressure 1: 116/74 Code: 8480-6 BMI: 31.5 Code: 41726-7 Heart Rate 1: 74 bpm Height: 5'2" SpO2: 95% Weight: 172 lbs 10/21/2017 Blood Pressure 1: 136/82 Code: 8480-6 BMI: 30.4 Code: 01890-5 Heart Rate 1: 79 bpm Height: 5'2" SpO2: 97% Weight: 166 lbs 09/26/2017 Blood Pressure 1: 122/80 Code: 8480-6 BMI: 30.4 Code: 99663-3 Heart Rate 1: 63 bpm Height: 5'2" SpO2: 98% Weight: 166 lbs 08/27/2017 Blood Pressure 1: 132/70 Code: 8480-6 BMI: 30.7 Code: 37153-7 Heart Rate 1: 89 bpm Height: 5'2" SpO2: 98% Weight: 168 lbs 05/27/2017 Blood Pressure 1: 132/72 Code: 8480-6 BMI: 28.9 Code: 90452-3 Heart Rate 1: 72 bpm Height: 5'2" SpO2: 98% Weight: 158 lbs 04/24/2017 Blood Pressure 1: 140/76 Code: 8480-6 BMI: 29.3 Code: 34548-4 Heart Rate 1: 77 bpm Height: 5'2" SpO2: 97% Weight: 160 lbs 03/27/2017 Blood Pressure 1: 128/74 Code: 8480-6 BMI: 29.1 Code: 41505-8 Heart Rate 1: 74 bpm Height: 5'2" SpO2: 98% Temperature: 36.8 (C) / 98.3 (F) Weight: 159 lbs 10/25/2016 Blood Pressure 1: 116/74 Code: 8480-6 BMI: 28.9 Code: 16353-0 Heart Rate 1: 68 bpm Height: 5'2" SpO2: 99% Weight: 158 lbs 09/20/2016 Blood Pressure 1: 116/70 Code: 8480-6 Heart Rate 1: 72 bpm Weight: 150 lbs 08/24/2016 Blood Pressure 1: 118/62 Code: 8480-6 BMI: 27.6 Code: 22100-4 Heart Rate 1: 63 bpm Height: 5'2" SpO2: 99% Weight: 151 lbs 06/12/2016 Blood Pressure 1: 122/74 Code: 8480-6 BMI: 26.9 Code: 19160-7 Heart Rate 1: 52 bpm Height: 5'2" [...] Chronic pain syndrome[ICD10: G89.4] Veda Jama MD, [facility] CPT- 4: 87321 12/08/2018 ([id number]) Miscellaneous no charge Diagnosis: Overweight[ICD10: E66.3] [facility], [facility] CPT-4: 58657 11/27/2018 [id number] EST. PATIENT, LEVEL III Diagnosis: Chronic pain syndrome[ICD10: G89.4] Diagnosis: Menopausal and female climacteric states[ICD10: N95.1] Veda Jama MD, [facility] CPT-4: 29445 10/09/2018 ([id number]) Miscellaneous no charge Diagnosis: Overweight[ICD10: E66.3] [facility], [facility] CPT-4: 69116 08/29/2018 50111 EST. PATIENT, LEVEL III Diagnosis: Generalized anxiety disorder[ICD10: F41.1] Diagnosis: Major depressive disorder, single episode, moderate[ICD10: F32.1] Veda Jama MD, [facility] CPT-4: 99737 07/18/2018 ([id number]) Miscellaneous no charge Diagnosis: Overweight[ICD10: E66.3] [facility] MD, [facility] CPT-4: 01071 07/16/2018 12648 EST. PATIENT, LEVEL III Diagnosis: Chronic pain syndrome[ICD10: G89.4] Diagnosis: Overweight[ICD10: E66.3] Veda Jama MD, [facility] CPT-4: 50893 06/18/2018 03957 EST. PATIENT, LEVEL IV Diagnosis: Chronic pain syndrome[ICD10: G89.4] Diagnosis: Overweight[ICD10: E66.3] Veda Jama MD, [facility] CPT-4: 34075 02/28/2018 34356 EST. PATIENT, LEVEL III Diagnosis: Chronic pain syndrome[ICD10: G89.4] Diagnosis: Overweight[ICD10: E66.3] Veda Jama MD, [facility] CPT-4: 96115 12/09/2017 29566 EST. PATIENT, LEVEL III Diagnosis: Chronic pain syndrome[ICD10: G89.4] Diagnosis: Overweight[ICD10: E66.3] Veda Jama MD, [facility] CPT-4: 31702 10/21/2017 ([id number]) Miscellaneous no charge Diagnosis: Overweight[ICD10: E66.3] uJju Jama MD, [facility] CPT-4: 57411 09/26/2017 22968 EST. PATIENT, LEVEL III Diagnosis: Chronic pain syndrome[ICD10: G89.4] Diagnosis: Overweight[ICD10: E66.3] Veda Jama MD, [facility] CPT-4: 19345 08/27/2017 29839 EST. PATIENT, LEVEL III Diagnosis: Chronic pain syndrome[ICD10: G89.4] Diagnosis: Generalized anxiety disorder[ICD10: F41.1] Diagnosis: Major depressive disorder, single episode, moderate[ICD10: F32.1] Diagnosis: Cellulitis of right lower limb[ICD10: L03.115] Veda Jama MD, [facility] CPT-4: 42298 05/27/2017 ([id number]) 18283 EST. PATIENT, LEVEL IV Diagnosis: Generalized anxiety disorder[ICD10: F41.1] Diagnosis: Major depressive disorder, single episode, moderate[ICD10: F32.1] Diagnosis: Menopausal and female climacteric states[ICD10: N95.1] Diagnosis: Chronic pain syndrome[ICD10: G89.4] Veda Jama MD, [facility] CPT- 4: 63777 04/24/2017 ([id number]) PREV VISIT EST AGE 18-39 Diagnosis: Encounter for gynecological examination (general) (routine) without abnormal findings[ICD10: Z01.419] Veda Jama MD, [facility] CPT-4: 63386 03/27/2017 ([id number]) 39994 EST. PATIENT, LEVEL III Diagnosis: Overweight[ICD10: E66.3] Veda Jama MD, [facility] CPT-4: 18199 10/25/2016 ([id number]) Miscellaneous no charge Diagnosis: Overweight[ICD10: E66.3] Radha Jama MD, [facility] CPT-4: 77695 09/20/2016 53040 EST. PATIENT, LEVEL IV Diagnosis: Other fatigue[ICD10: R53.83] Diagnosis: Overweight[ICD10: E66.3] Diagnosis: Generalized anxiety disorder[ICD10: F41.1] Veda Jama MD, [facility] CPT-4: 85192 08/24/2016 ([id number]) OFFICE VISIT, NEW - LEVEL 4 Diagnosis: Generalized anxiety disorder[ICD10: F41.1] Diagnosis: Major depressive disorder, single episode, moderate[ICD10: F32.1] [facility] CPT-4: 41479 06/12/2016 Plan of Care Planned Activity Notes Codes Status Date Visit Plan: Chronic Pain Syndrome - pt has chronic pain - has been maintained on current medications, has not sought out other medications, only uses PRN pain medications as directed, and understands the consequences of over-medication. 12/08/2018 Appointment: Veda Duenas WPtel: [phone] (30 min) Complex 12/08/2018 Patient Education: Patient [...] or concerns. 10/09/2018 Appointment: Veda Duenas WPtel: [phone] (15 min) Moderate 10/09/2018 Patient Education: Patient [...] this patient. 07/18/2018 Appointment: Veda Duenas WPtel: [address] [place], [place] [phone] (15 min) Moderate 07/18/2018 Patient Education: Patient [...] weight check. 06/18/2018 Appointment: Veda Duenas WPtel: [address] [place], [place] [phone] (15 min) Moderate 06/18/2018 Patient Education: Patient [...] month for weight check. 02/28/2018 Appointment: Veda Duenastel: [address] [place], [place] [phone] (30 min) Complex 02/28/2018 Patient Education: Patient Medication Summary Completed 02/28/2018 Patient Education: Obesity Completed 02/28/2018 Appointment: Veda Duenas WPtel: [address] [place], [place] [phone] (15 min) Moderate 02/27/2018 Visit Plan: Chronic [...] weight check. 12/09/2017 Appointment: Veda Duenas WPtel: [facility] (15 min) Moderate 12/09/2017 Patient Education: Patient [...] weight check. 10/21/2017 Appointment: Veda Duenas WPtel: [address] [place], [place] [phone] (15 min) Moderate 10/21/2017 Patient Education: Patient Medication Summary Completed 10/21/2017 Patient Education: Obesity Completed 10/21/2017 Appointment: Nurse Visit 09/26/2017 Patient Education: Patient Medication Summary Completed 09/26/2017 Appointment: [facility]el[facility] ([facility] 08/30/2017 Visit Plan: Chronic [...] warmth, discharge. 05/27/2017 [phone] ([facility] min) Complex 05/27/2017 Patient Education: [...] new RX. 04/24/2017 App[phone] ([facility] min) Complex 04/24/2017 Patient Education: [...] per pharmacy. 03/27/2017 Appointment: Veda Duenas [facility]Ptel[facility] [facility] 03/27/2017 Patient Education: Patient Medication Summary Completed 03/27/2017 Care Plan: BMI Above normal followup SELF-MGMT EDUC & TRAIN 1 PT Pending 11/07/2016 Visit Plan: Obesity - chronic issue with this patient. The pt has been counseled about diet changes, calorie restriction, and need to exercise. Pt will RTC in one month for weight check. 10/25/2016 Appointment: Veda Duenas WPtel: [address] [place], [place] [address] (15 min) Moderate 10/25/2016 Patient Education: Patient [...] weight check. 08/24/2016 Appointment: Radha Mcgowan WPtel[phone] (30 min) Complex 08/24/2016 Appointment: Radha Mcgowan WPtel: [phone] [facility] [place] [address] (30 min) Complex 08/24/2016 Appointment: Juan MHerberthRadha WPtel: [phone] (30 min) Complex 08/24/2016 Patient Education: Patient [...] this patient. 06/12/2016 Appointment: Radha Mcgowan WPtel: [facility] [place] [address] New Patient 06/12/2016 Patient Education: Patient Medication [...]
--- OUTSIDE RECORDS SUMMARY | 2019-07-01 06:32 | XMS REPORT | CCD ---
Author Author Veda Duenas Organization [facility] Address [address] [place] [address] Phone Care Team Providers Care Architect Naval Name Role Phone PP Unavailable CCM Unavailable Summary Purpose Interface Exchange Insurance Providers Payer name Policy type / Coverage type Covered constitution party ID Effective Begin Date Effective End Date [employer] [id number] 2018 Unknown Family history Father Diagnosis Age At Onset Diabetes Unknown Hyperlipidemia Unknown Hypertension Unknown Heart Attack Unknown Social History Social History Element Codes Description Effective Dates Marital status Unknown CJ 06/12/2016 Number of children Unknown 3 06/12/[address]: 110508786 Never smoker 06/12/[address]: 774661064 Never drinks alcohol 06/12/2016 Allergies, Adverse Reactions, [...] Fill Instructions cyclobenzaprine 5 mg tablet RxNorm: 756134 TAKE ONE TABLET BY MOUTH THREE TIMES DAILY NEEDED FOR MUSCLE SPASM 12/16/2018 No Stop Date Active phentermine 37.5 mg tablet RxNorm: 298289 1 Tablet(s) PO daily 11/27/2018 No Stop Date Active Lexapro 10 mg tablet RxNorm: 572514 TAKE 1 TABLET BY MOUTH ONCE DAILY 11/26/2018 No Stop Date Active cyclobenzaprine 5 mg tablet RxNorm: 928481 TAKE ONE TABLET BY MOUTH THREE TIMES DAILY NEEDED FOR MUSCLE SPASM 11/12/2018 12/15/2018 Inactive hydrocodone 5 mg-acetaminophen 325 mg tablet RxNorm: 331964 1-1.5 Tablet(s) PO QID as needed 11/06/2018 12/05/2018 Inactive Lyrica 100 mg capsule RxNorm: 413787 1 Capsule(s) PO BID as needed 10/31/2018 01/28/2019 Active pravastatin 20 mg tablet RxNorm: 611638 1 Tablet(s) PO QPM 10/28/2018 02/24/2019 Active pravastatin 20 mg tablet RxNorm: 570156 1 Tablet(s) PO QPM 10/28/2018 10/27/2018 Inactive EEMT 1.25 mg-2.5 mg tablet RxNorm: 408817 1 Tablet(s) PO daily 10/09/2018 01/06/2019 Active norethindrone acetate 1 mg-ethinyl estradiol 20 mcg tablet RxNorm: 7646584 1 Tablet(s) PO daily 10/09/2018 10/03/2019 Active hydrocodone 5 mg-acetaminophen 325 mg tablet RxNorm: 990156 1-1.5 Tablet(s) PO QID as needed 10/09/2018 11/05/2018 Inactive hydrocodone 5 mg-acetaminophen 325 mg tablet RxNorm: 775625 1-1.5 Tablet(s) PO QID as needed 09/11/2018 10/08/2018 Inactive phentermine 37.5 mg tablet RxNorm: 110823 1 Tablet(s) PO daily 08/29/2018 11/26/2018 Inactive cyclobenzaprine 5 mg tablet RxNorm: 366600 TAKE ONE TABLET BY MOUTH THREE TIMES DAILY NEEDED FOR MUSCLE SPASM 08/27/2018 11/11/2018 Inactive hydrocodone 5 mg-acetaminophen 325 mg tablet RxNorm: 166916 1-1.5 Tablet(s) PO QID as needed 08/14/2018 09/10/2018 Inactive Lexapro 10 mg tablet RxNorm: 218503 1 Tablet(s) PO daily 07/18/2018 08/16/2018 Inactive diazepam 10 mg tablet RxNorm: 648991 1 Tablet(s) PO TID as needed anxiety 07/11/2018 07/14/2018 Inactive Zorvolex 35 mg capsule RxNorm: 8960082 1 Capsule(s) PO TID 06/18/2018 No Stop Date Active hydrocodone 5 mg-acetaminophen 325 mg tablet RxNorm: 908103 1-1.5 Tablet(s) PO QID as needed 06/18/2018 07/17/2018 Inactive cyclobenzaprine 5 mg tablet RxNorm: 217759 TAKE ONE TABLET BY MOUTH THREE TIMES DAILY NEEDED FOR MUSCLE SPASM 06/04/2018 08/26/2018 Inactive hydrocodone 5 mg-acetaminophen 325 mg tablet RxNorm: 221959 1-1.5 Tablet(s) PO QID as needed 05/26/2018 06/17/2018 Inactive cyclobenzaprine 5 mg tablet RxNorm: 803751 TAKE ONE TABLET BY MOUTH THREE TIMES DAILY NEEDED FOR MUSCLE SPASM 05/07/2018 06/03/2018 Inactive ibuprofen 800 mg tablet RxNorm: 614719 TAKE ONE TABLET BY MOUTH THREE TIMES DAILY NEEDED 04/28/2018 No Stop Date Active hydrocodone 5 mg-acetaminophen 325 mg tablet RxNorm: 561874 1-1.5 Tablet(s) PO QID as needed 04/28/2018 05/25/2018 Inactive diazepam 10 mg tablet RxNorm: 309963 1 Tablet(s) PO TID as needed anxiety 04/22/2018 06/19/2018 Inactive hydrocodone 5 mg-acetaminophen 325 mg tablet RxNorm: 901541 1-1.5 Tablet(s) PO QID as needed 03/25/2018 04/23/2018 Inactive cyclobenzaprine 5 mg tablet RxNorm: 225366 TAKE ONE TABLET BY MOUTH THREE TIMES DAILY NEEDED FOR MUSCLE SPASM 03/17/2018 05/06/2018 Inactive hydrocodone 5 mg-acetaminophen 325 mg tablet RxNorm: 503232 1-1.5 Tablet(s) PO QID as needed 03/02/2018 03/24/2018 Inactive phentermine 37.5 mg tablet RxNorm: 152495 1 Tablet(s) PO daily 03/02/2018 08/28/2018 Inactive hydrocodone 5 mg-acetaminophen 325 mg tablet RxNorm: 860722 1-1.5 Tablet(s) PO QID as needed 02/03/2018 03/01/2018 Inactive diazepam 10 mg tablet RxNorm: 915563 1 Tablet(s) PO TID as needed anxiety 01/01/2018 02/28/2018 Inactive hydrocodone 5 mg-acetaminophen 325 mg tablet RxNorm: 382297 1-1.5 Tablet(s) PO QID as needed 12/09/2017 01/07/2018 Inactive ibuprofen 800 mg tablet RxNorm: 731932 1 Tablet(s) PO TID as needed 12/09/2017 01/07/2018 Inactive Lyrica 100 mg capsule RxNorm: 208534 1 Capsule(s) PO BID as needed 12/09/2017 03/07/2018 Inactive cyclobenzaprine 5 mg tablet RxNorm: 114488 TAKE ONE TABLET BY MOUTH THREE TIMES DAILY NEEDED FOR MUSCLE SPASM 12/03/2017 03/16/2018 Inactive hydrocodone 5 mg-acetaminophen 325 mg tablet RxNorm: 106878 1-1.5 Tablet(s) PO QID as needed 10/21/2017 11/19/2017 Inactive hydrocodone 7.5 mg-acetaminophen 325 mg tablet RxNorm: 559284 1 Tablet(s) PO QID as needed 09/26/2017 10/20/2017 Inactive phentermine 37.5 mg tablet RxNorm: 788754 1 Tablet(s) PO daily 09/26/2017 10/01/2017 Inactive Lyrica 100 mg capsule RxNorm: 356622 1 Capsule(s) PO BID as needed 09/12/2017 12/08/2017 Inactive hydrocodone 7.5 mg-acetaminophen 325 mg tablet RxNorm: 139603 1 Tablet(s) PO QID as needed 08/27/2017 09/23/2017 Inactive Belviq XR 20 mg tablet,extended release RxNorm: 9056237 1 Tablet(s) PO daily 08/27/2017 09/23/2017 Inactive cyclobenzaprine 5 mg tablet RxNorm: 682528 1 Tablet(s) PO TID as needed muscle spasms 08/19/2017 08/23/2017 Inactive hydrocodone 7.5 mg-acetaminophen 325 mg tablet RxNorm: 549575 1 Tablet(s) PO QID as needed 08/02/2017 08/26/2017 Inactive hydrocodone 7.5 mg-acetaminophen 325 mg tablet RxNorm: 199121 1 Tablet(s) PO TID as needed 08/02/2017 08/01/2017 Inactive diazepam 10 mg tablet RxNorm: 090205 1 Tablet(s) PO TID as needed anxiety 07/24/2017 02/02/2018 Inactive hydrocodone 7.5 mg-acetaminophen 325 mg tablet RxNorm: 776258 1 Tablet(s) PO TID as needed 07/11/2017 08/01/2017 Inactive Lyrica 100 mg capsule RxNorm: 193176 1 Capsule(s) PO BID as needed 06/24/2017 09/20/2017 Inactive hydrocodone 5 mg-acetaminophen 325 mg tablet RxNorm: 135559 1 Tablet(s) PO TID 06/24/2017 07/30/2017 Inactive prednisone 10 mg tablet RxNorm: 130949 1 Tablet(s) PO daily 06/18/2017 06/17/2017 Inactive 6-5-4-3-2-1 then stop prednisone 10 mg tablet RxNorm: 558839 1 Tablet(s) PO daily 06/18/2017 08/25/2017 Inactive 6-5-4-3-2-1 then stop Bactrim DS 800 mg-160 mg tablet RxNorm: 177081 1 Tablet(s) PO BID 06/11/2017 06/14/2017 Inactive Bactrim DS 800 mg-160 mg tablet RxNorm: 040676 1 Tablet(s) PO BID 06/03/2017 06/10/2017 Inactive mupirocin 2 % topical ointment RxNorm: 013737 1 Application TOP BID 06/03/2017 08/25/2017 Inactive Lyrica 100 mg capsule RxNorm: 678510 1 Capsule(s) PO BID as needed 05/27/2017 06/23/2017 Inactive Keflex 500 mg capsule RxNorm: 177998 1 Capsule(s) PO TID 05/27/2017 06/02/2017 Inactive Lexapro 10 mg tablet RxNorm: 140717 1 Tablet(s) PO daily 05/27/2017 08/25/2017 Inactive hydrocodone 5 mg-acetaminophen 325 mg tablet RxNorm: 728501 1 Tablet(s) PO TID 05/27/2017 06/23/2017 Inactive hydrocodone 7.5 mg-acetaminophen 325 mg tablet RxNorm: 538354 1 Tablet(s) PO TID as needed 05/13/2017 05/25/2017 Inactive hydrocodone 7.5 mg-acetaminophen 325 mg tablet RxNorm: 787458 1 Tablet(s) PO TID as needed 05/13/2017 05/12/2017 Inactive cyclobenzaprine 5 mg tablet RxNorm: 210011 TAKE ONE TABLET BY MOUTH THREE TIMES DAILY NEEDED FOR MUSCLE SPASM 05/01/2017 05/05/2017 Inactive hydrocodone 5 mg-acetaminophen 325 mg tablet RxNorm: 646649 1 Tablet(s) PO TID as needed 04/24/2017 05/12/2017 Inactive cyclobenzaprine 5 mg tablet RxNorm: 046239 1 Tablet(s) PO TID as needed muscle spasms 04/24/2017 04/28/2017 Inactive diazepam 10 mg tablet RxNorm: 662567 1 Tablet(s) PO TID as needed anxiety 02/22/2017 04/19/2017 Inactive norethindrone acetate 1 mg-ethinyl estradiol 20 mcg tablet RxNorm: 2984191 1 Tablet(s) PO daily 12/18/2016 07/15/2017 Inactive EEMT 1.25 mg-2.5 mg tablet RxNorm: 348545 1 Tablet(s) PO daily 12/06/2016 03/05/2017 Inactive EEMT 1.25 mg-2.5 mg tablet RxNorm: 523902 1 Tablet(s) PO daily 12/06/2016 12/05/2016 Inactive Lexapro 10 mg tablet RxNorm: 360306 1 Tablet(s) PO daily 12/06/2016 05/04/2017 Inactive diazepam 10 mg tablet RxNorm: 780809 1 Tablet(s) PO TID 11/09/2016 12/07/2016 Inactive phentermine 37.5 mg tablet RxNorm: 977642 1 Tablet(s) PO daily 10/25/2016 08/23/2017 Inactive EEMT 1.25 mg-2.5 mg tablet RxNorm: 506981 1 Tablet(s) PO daily 10/25/2016 12/05/2016 Inactive phentermine 37.5 mg tablet RxNorm: 302843 1 Tablet(s) PO daily 09/20/2016 10/24/2016 Inactive Lexapro 10 mg tablet RxNorm: 994850 1 Tablet(s) PO daily 07/10/2016 12/05/2016 Inactive Lexapro 10 mg tablet RxNorm: 871444 1 Tablet(s) PO daily 06/12/2016 07/09/2016 Inactive norethindrone acetate 1 mg-ethinyl estradiol 20 mcg tablet RxNorm: 9860322 1 Tablet(s) PO daily 06/12/2016 12/17/2016 Inactive hydrocodone 10 mg-acetaminophen 325 mg tablet RxNorm: 314761 1 Tablet(s) PO TID No Start Date 05/12/2017 Inactive phentermine 37.5 mg tablet RxNorm: 133817 1 Tablet(s) PO daily No Start Date 09/19/2016 Inactive norethindrone acetate 1 mg-ethinyl estradiol 20 mcg tablet RxNorm: 2916059 1 Tablet(s) PO daily No Start Date 06/11/2016 Inactive EEMT 1.25 mg-2.5 mg tablet RxNorm: 623201 1 Tablet(s) PO daily No Start Date [...] 1: 130/74 Code: 8480-6 BMI: 30.7 Code: 59715-2 Heart Rate 1: 82 bpm Height: 5'2" SpO2: 97% Weight: 168 lbs 11/27/2018 Blood Pressure 1: 130/74 Code: 8480-6 Weight: 168 lbs 10/09/2018 Blood Pressure 1: 128/74 Code: 8480-6 BMI: 31.1 Code: 90360-9 Heart Rate 1: 81 bpm Height: 5'2" SpO2: 97% Weight: 170 lbs 08/29/2018 Blood Pressure 1: 120/70 Code: 8480-6 BMI: 31.1 Code: 27476-9 Heart Rate 1: 65 bpm Height: 5'2" Weight: 170 lbs 07/18/2018 Blood Pressure 1: 126/88 Code: 8480-6 Heart Rate 1: 78 bpm Height: SpO2: 97% Weight: 07/16/2018 Blood Pressure 1: 130/78 Code: 8480-6 Heart Rate 1: 84 bpm Weight: 172 lbs 06/18/2018 Blood Pressure 1: 128/80 Code: 8480-6 BMI: 31.1 Code: 82579-3 Heart Rate 1: 80 bpm Height: 5'2" SpO2: 97% Weight: 170 lbs 02/28/2018 Blood Pressure 1: 120/78 Code: 8480-6 BMI: 31.6 Code: 23439-2 Heart Rate 1: 66 bpm Height: 5'2" SpO2: 98% Weight: 173 lbs 12/09/2017 Blood Pressure 1: 116/74 Code: 8480-6 BMI: 31.5 Code: 28001-0 Heart Rate 1: 74 bpm Height: 5'2" SpO2: 95% Weight: 172 lbs 10/21/2017 Blood Pressure 1: 136/82 Code: 8480-6 BMI: 30.4 Code: 67127-1 Heart Rate 1: 79 bpm Height: 5'2" SpO2: 97% Weight: 166 lbs 09/26/2017 Blood Pressure 1: 122/80 Code: 8480-6 BMI: 30.4 Code: 22476-9 Heart Rate 1: 63 bpm Height: 5'2" SpO2: 98% Weight: 166 lbs 08/27/2017 Blood Pressure 1: 132/70 Code: 8480-6 BMI: 30.7 Code: 61081-4 Heart Rate 1: 89 bpm Height: 5'2" SpO2: 98% Weight: 168 lbs 05/27/2017 Blood Pressure 1: 132/72 Code: 8480-6 BMI: 28.9 Code: 48932-1 Heart Rate 1: 72 bpm Height: 5'2" SpO2: 98% Weight: 158 lbs 04/24/2017 Blood Pressure 1: 140/76 Code: 8480-6 BMI: 29.3 Code: 02813-6 Heart Rate 1: 77 bpm Height: 5'2" SpO2: 97% Weight: 160 lbs 03/27/2017 Blood Pressure 1: 128/74 Code: 8480-6 BMI: 29.1 Code: 67025-1 Heart Rate 1: 74 bpm Height: 5'2" SpO2: 98% Temperature: 36.8 (C) / 98.3 (F) Weight: 159 lbs 10/25/2016 Blood Pressure 1: 116/74 Code: 8480-6 BMI: 28.9 Code: 23983-7 Heart Rate 1: 68 bpm Height: 5'2" SpO2: 99% Weight: 158 lbs 09/20/2016 Blood Pressure 1: 116/70 Code: 8480-6 Heart Rate 1: 72 bpm Weight: 150 lbs 08/24/2016 Blood Pressure 1: 118/62 Code: 8480-6 BMI: 27.6 Code: 99258-2 Heart Rate 1: 63 bpm Height: 5'2" SpO2: 99% Weight: 151 lbs 06/12/2016 Blood Pressure 1: 122/74 Code: 8480-6 BMI: 26.9 Code: 67962-8 Heart Rate 1: 52 bpm Height: 5'2" [...] data Encounters Encounter Performer Location Codes Date 21030 EST. PATIENT, LEVEL III Diagnosis: Chronic pain syndrome[ICD10: G89.4] [facility] CPT- 4: 88879 12/08/2018 ([id number]) Miscellaneous no charge Diagnosis: Overweight[ICD10: E66.3] [facility] CPT-4: 41535 11/27/2018 [id number] EST. PATIENT, LEVEL III Diagnosis: Chronic pain syndrome[ICD10: G89.4] Diagnosis: Menopausal and female climacteric states[ICD10: N95.1] [facility] Jama MD, [facility] CPT-4: 59522 10/09/2018 ([id number]) Miscellaneous no charge Diagnosis: Overweight[ICD10: E66.3] [facility] CPT-4: 66373 08/29/2018 [id number] EST. PATIENT, LEVEL III Diagnosis: Generalized anxiety disorder[ICD10: F41.1] Diagnosis: Major depressive disorder, single episode, moderate[ICD10: F32.1] [facility], [facility] CPT-4: 39935 07/18/2018 ([id number]) Miscellaneous no charge Diagnosis: Overweight[ICD10: E66.3] [facility] CPT-4: 70313 07/16/2018 [id number] EST. PATIENT, LEVEL III Diagnosis: Chronic pain syndrome[ICD10: G89.4] Diagnosis: Overweight[ICD10: E66.3] [facility]eda Jama MD, [facility] CPT-4: 73855 06/18/2018 98062 EST. PATIENT, LEVEL IV Diagnosis: Chronic pain syndrome[ICD10: G89.4] Diagnosis: Overweight[ICD10: E66.3] [facility]eda Jama MD, [facility] CPT-4: 08966 02/28/2018 02585 EST. PATIENT, LEVEL III Diagnosis: Chronic pain syndrome[ICD10: G89.4] Diagnosis: Overweight[ICD10: E66.3] [facility] MD, [facility] CPT-4: 90616 12/09/2017 94456 EST. PATIENT, LEVEL III Diagnosis: Chronic pain syndrome[ICD10: G89.4] Diagnosis: Overweight[ICD10: E66.3] [facility], [facility] CPT-4: 68450 10/21/2017 ([id number]) Miscellaneous no charge Diagnosis: Overweight[ICD10: E66.3] [facility] CPT-4: 10653 09/26/2017 91771 EST. PATIENT, LEVEL III Diagnosis: Chronic pain syndrome[ICD10: G89.4] Diagnosis: Overweight[ICD10: E66.3] Veda Jama MD, [facility] CPT-4: 46080 08/27/2017 20671 EST. PATIENT, LEVEL III Diagnosis: Chronic pain syndrome[ICD10: G89.4] Diagnosis: Generalized anxiety disorder[ICD10: F41.1] Diagnosis: Major depressive disorder, single episode, moderate[ICD10: F32.1] Diagnosis: Cellulitis of right lower limb[ICD10: L03.115] Veda Jama MD, [facility] CPT-4: 79449 05/27/2017 ([id number]) 63515 EST. PATIENT, LEVEL IV Diagnosis: Generalized anxiety disorder[ICD10: F41.1] Diagnosis: Major depressive disorder, single episode, moderate[ICD10: F32.1] Diagnosis: Menopausal and female climacteric states[ICD10: N95.1] Diagnosis: Chronic pain syndrome[ICD10: G89.4] [facility]eda Jama MD, [facility] CPT- 4: 96426 04/24/2017 ([id number]) PREV VISIT EST AGE 18-39 Diagnosis: Encounter for gynecological examination (general) (routine) without abnormal findings[ICD10: Z01.419] [facility]eda [facility] MD, [facility] CPT-4: 96720 03/27/2017 ([id number]) 00994 EST. PATIENT, LEVEL III Diagnosis: Overweight[ICD10: E66.3] [facility] MD, [facility] CPT-4: 06891 10/25/2016 ([id number]) Miscellaneous no charge Diagnosis: Overweight[ICD10: E66.3] [facility], [facility] CPT-4: 65056 09/20/2016 73962 EST. PATIENT, LEVEL IV Diagnosis: Other fatigue[ICD10: R53.83] Diagnosis: Overweight[ICD10: E66.3] Diagnosis: Generalized anxiety disorder[ICD10: F41.1] [facility]eda Jama MD, [facility] CPT-4: 40120 08/24/2016 ([id number]) OFFICE VISIT, NEW - LEVEL 4 Diagnosis: Generalized anxiety disorder[ICD10: F41.1] Diagnosis: Major depressive disorder, single episode, moderate[ICD10: F32.1] [facility]eda [facility] MD, [facility] CPT-4: 69303 06/12/2016 Plan of Care Planned Activity Notes Codes Status Date Visit Plan: Chronic Pain Syndrome - pt has chronic pain - has been maintained on current medications, has not sought out other medications, only uses PRN pain medications as directed, and understands the consequences of over-medication. 12/08/2018 Appointment: Veda Duenas [facility] [phone] [facility] [place] (30 min) Complex 12/08/2018 Patient Education: Patient [...] concerns. 10/09/2018 Appointment: Veda Duenas [phone] [facility] [place] (15 min) Moderate 10/09/2018 Patient Education: Patient [...] this patient. 07/18/2018 Appointment: Veda Duenas [phone] [facility] [place] (15 min) Moderate 07/18/2018 Patient Education: Patient [...] check. 06/18/2018 Appointment: Veda Duenas WPtel: [id number] (15 min) Moderate 06/18/2018 Patient Education: [...] check. 02/28/2018 Appointment: Veda Duenas WPtel: [facility]9 [phone] (30 min) Complex 02/28/2018 Patient Education: Patient Medication Summary Completed 02/28/2018 Patient Education: Obesity Completed 02/28/2018 Appointment: Veda Duenas WPtel: [facility]5 [id number] (15 min) Moderate 02/27/2018 Visit Plan: Chronic [...] weight check. 12/09/2017 Appointment: Veda Duenas WPtel: [phone] (15 min) Moderate 12/09/2017 Patient Education: Patient [...] check. 10/21/2017 Appointment: Veda Duenas [facility]Pt[facility]: [phone] [facility] [place] (15 min) Moderate 10/21/2017 Patient Education: Patient Medication Summary Completed 10/21/2017 Patient Education: Obesity Completed 10/21/2017 Appointment: Nurse Visit 09/26/2017 Patient Education: Patient Medication Summary Completed 09/26/2017 Appointment: Veda Duenas [facility]: [phone] [facility] [place] (30 min) Complex 08/30/2017 Visit Plan: Chronic [...] discharge. 05/27/2017 Appointment: Veda Duenas [facility]: [phone] [facility] [place] (30 min) Complex 05/27/2017 Patient Education: Patient [...] RX. 04/24/2017 Appointment: Veda Duenas [facility]: [phone] [facility] [place] (30 min) Complex 04/24/2017 Patient Education: Patient [...] per pharmacy. 03/27/2017 Appointment: Veda Duenas WPtel: [address] [place], [place] [phone] 03/27/2017 [...] weight check. 10/25/2016 Appointment: Veda Duenas WPtel: [address] [place], [place] [phone] (15 min) Moderate 10/25/2016 Patient Education: [...] weight check. 08/24/2016 Appointment: Radha Mcgowan WPtel: [address] [place], [place] [phone] (30 min) Complex 08/24/2016 Appointment: Radha Mcgowan WPtel: [phone] (30 min) Complex 08/24/2016 Appointment: Radha Mcgowan WPtel: [phone] [facility] [phone] (30 min) Complex 08/24/2016 Patient Education: Patient [...] patient. 06/12/2016 Appointment: Radha Mcgowan WPtel: [facility] [phone] New Patient 06/12/2016 Patient Education: Patient Medication [...]
--- OUTSIDE RECORDS SUMMARY | 2019-07-01 06:34 | XMS REPORT | CCD ---
Author Author Veda Duenas Organization [facility] Address [address] [place] [address] Phone Care Team Providers Care Vest Tailor Name Role Phone PP Unavailable CCM Unavailable Summary Purpose Interface Exchange Insurance Providers Payer name Policy type / Coverage type Covered republican ID Effective Begin Date Effective End Date [employer] [id number] 2018 Unknown Family history Father Diagnosis Age At Onset Diabetes Unknown Hyperlipidemia Unknown Hypertension Unknown Heart Attack Unknown Social History Social History Element Codes Description Effective Dates Marital status Unknown CJ 06/12/2016 Number of children Unknown 3 06/12/[address]: 023033640 Never smoker 06/12/[address]: 307849253 Never drinks alcohol 06/12/2016 Allergies, Adverse Reactions, [...] Start Date Stop Date Status Fill Instructions phentermine 37.5 mg tablet RxNorm: 184273 1 Tablet(s) PO daily 11/27/2018 No Stop Date Active Lexapro 10 mg tablet RxNorm: 728611 TAKE 1 TABLET BY MOUTH ONCE DAILY 11/26/2018 No Stop Date Active cyclobenzaprine 5 mg tablet RxNorm: 399143 TAKE ONE TABLET BY MOUTH THREE TIMES DAILY NEEDED FOR MUSCLE SPASM 11/12/2018 No Stop Date Active hydrocodone 5 mg-acetaminophen 325 mg tablet RxNorm: 673812 1-1.5 Tablet(s) PO QID as needed 11/06/2018 12/05/2018 Inactive Lyrica 100 mg capsule RxNorm: 095438 1 Capsule(s) PO BID as needed 10/31/2018 01/28/2019 Active pravastatin 20 mg tablet RxNorm: 840094 1 Tablet(s) PO QPM 10/28/2018 02/24/2019 Active pravastatin 20 mg tablet RxNorm: 657179 1 Tablet(s) PO QPM 10/28/2018 10/27/2018 Inactive EEMT 1.25 mg-2.5 mg tablet RxNorm: 078629 1 Tablet(s) PO daily 10/09/2018 01/06/2019 Active norethindrone acetate 1 mg-ethinyl estradiol 20 mcg tablet RxNorm: 4209194 1 Tablet(s) PO daily 10/09/2018 10/03/2019 Active hydrocodone 5 mg-acetaminophen 325 mg tablet RxNorm: 149232 1-1.5 Tablet(s) PO QID as needed 10/09/2018 11/05/2018 Inactive hydrocodone 5 mg-acetaminophen 325 mg tablet RxNorm: 060266 1-1.5 Tablet(s) PO QID as needed 09/11/2018 10/08/2018 Inactive phentermine 37.5 mg tablet RxNorm: 406461 1 Tablet(s) PO daily 08/29/2018 11/26/2018 Inactive cyclobenzaprine 5 mg tablet RxNorm: 593780 TAKE ONE TABLET BY MOUTH THREE TIMES DAILY NEEDED FOR MUSCLE SPASM 08/27/2018 11/11/2018 Inactive hydrocodone 5 mg-acetaminophen 325 mg tablet RxNorm: 155491 1-1.5 Tablet(s) PO QID as needed 08/14/2018 09/10/2018 Inactive Lexapro 10 mg tablet RxNorm: 624254 1 Tablet(s) PO daily 07/18/2018 08/16/2018 Inactive diazepam 10 mg tablet RxNorm: 194650 1 Tablet(s) PO TID as needed anxiety 07/11/2018 07/14/2018 Inactive Zorvolex 35 mg capsule RxNorm: 9169851 1 Capsule(s) PO TID 06/18/2018 No Stop Date Active hydrocodone 5 mg-acetaminophen 325 mg tablet RxNorm: 051396 1-1.5 Tablet(s) PO QID as needed 06/18/2018 07/17/2018 Inactive cyclobenzaprine 5 mg tablet RxNorm: 445605 TAKE ONE TABLET BY MOUTH THREE TIMES DAILY NEEDED FOR MUSCLE SPASM 06/04/2018 08/26/2018 Inactive hydrocodone 5 mg-acetaminophen 325 mg tablet RxNorm: 042343 1-1.5 Tablet(s) PO QID as needed 05/26/2018 06/17/2018 Inactive cyclobenzaprine 5 mg tablet RxNorm: 863018 TAKE ONE TABLET BY MOUTH THREE TIMES DAILY NEEDED FOR MUSCLE SPASM 05/07/2018 06/03/2018 Inactive ibuprofen 800 mg tablet RxNorm: 336848 TAKE ONE TABLET BY MOUTH THREE TIMES DAILY NEEDED 04/28/2018 No Stop Date Active hydrocodone 5 mg-acetaminophen 325 mg tablet RxNorm: 571063 1-1.5 Tablet(s) PO QID as needed 04/28/2018 05/25/2018 Inactive diazepam 10 mg tablet RxNorm: 753687 1 Tablet(s) PO TID as needed anxiety 04/22/2018 06/19/2018 Inactive hydrocodone 5 mg-acetaminophen 325 mg tablet RxNorm: 467842 1-1.5 Tablet(s) PO QID as needed 03/25/2018 04/23/2018 Inactive cyclobenzaprine 5 mg tablet RxNorm: 421134 TAKE ONE TABLET BY MOUTH THREE TIMES DAILY NEEDED FOR MUSCLE SPASM 03/17/2018 05/06/2018 Inactive hydrocodone 5 mg-acetaminophen 325 mg tablet RxNorm: 760270 1-1.5 Tablet(s) PO QID as needed 03/02/2018 03/24/2018 Inactive phentermine 37.5 mg tablet RxNorm: 188024 1 Tablet(s) PO daily 03/02/2018 08/28/2018 Inactive hydrocodone 5 mg-acetaminophen 325 mg tablet RxNorm: 311841 1-1.5 Tablet(s) PO QID as needed 02/03/2018 03/01/2018 Inactive diazepam 10 mg tablet RxNorm: 071256 1 Tablet(s) PO TID as needed anxiety 01/01/2018 02/28/2018 Inactive hydrocodone 5 mg-acetaminophen 325 mg tablet RxNorm: 005885 1-1.5 Tablet(s) PO QID as needed 12/09/2017 01/07/2018 Inactive ibuprofen 800 mg tablet RxNorm: 249445 1 Tablet(s) PO TID as needed 12/09/2017 01/07/2018 Inactive Lyrica 100 mg capsule RxNorm: 583020 1 Capsule(s) PO BID as needed 12/09/2017 03/07/2018 Inactive cyclobenzaprine 5 mg tablet RxNorm: 117499 TAKE ONE TABLET BY MOUTH THREE TIMES DAILY NEEDED FOR MUSCLE SPASM 12/03/2017 03/16/2018 Inactive hydrocodone 5 mg-acetaminophen 325 mg tablet RxNorm: 942373 1-1.5 Tablet(s) PO QID as needed 10/21/2017 11/19/2017 Inactive hydrocodone 7.5 mg-acetaminophen 325 mg tablet RxNorm: 561115 1 Tablet(s) PO QID as needed 09/26/2017 10/20/2017 Inactive phentermine 37.5 mg tablet RxNorm: 548409 1 Tablet(s) PO daily 09/26/2017 10/01/2017 Inactive Lyrica 100 mg capsule RxNorm: 998197 1 Capsule(s) PO BID as needed 09/12/2017 12/08/2017 Inactive hydrocodone 7.5 mg-acetaminophen 325 mg tablet RxNorm: 783449 1 Tablet(s) PO QID as needed 08/27/2017 09/23/2017 Inactive Belviq XR 20 mg tablet,extended release RxNorm: 7377572 1 Tablet(s) PO daily 08/27/2017 09/23/2017 Inactive cyclobenzaprine 5 mg tablet RxNorm: 975938 1 Tablet(s) PO TID as needed muscle spasms 08/19/2017 08/23/2017 Inactive hydrocodone 7.5 mg-acetaminophen 325 mg tablet RxNorm: 543644 1 Tablet(s) PO QID as needed 08/02/2017 08/26/2017 Inactive hydrocodone 7.5 mg-acetaminophen 325 mg tablet RxNorm: 873585 1 Tablet(s) PO TID as needed 08/02/2017 08/01/2017 Inactive diazepam 10 mg tablet RxNorm: 874496 1 Tablet(s) PO TID as needed anxiety 07/24/2017 02/02/2018 Inactive hydrocodone 7.5 mg-acetaminophen 325 mg tablet RxNorm: 036345 1 Tablet(s) PO TID as needed 07/11/2017 08/01/2017 Inactive Lyrica 100 mg capsule RxNorm: 612842 1 Capsule(s) PO BID as needed 06/24/2017 09/20/2017 Inactive hydrocodone 5 mg-acetaminophen 325 mg tablet RxNorm: 973877 1 Tablet(s) PO TID 06/24/2017 07/30/2017 Inactive prednisone 10 mg tablet RxNorm: 321820 1 Tablet(s) PO daily 06/18/2017 06/17/2017 Inactive 6-5-4-3-2-1 then stop prednisone 10 mg tablet RxNorm: 438899 1 Tablet(s) PO daily 06/18/2017 08/25/2017 Inactive 6-5-4-3-2-1 then stop Bactrim DS 800 mg-160 mg tablet RxNorm: 042304 1 Tablet(s) PO BID 06/11/2017 06/14/2017 Inactive Bactrim DS 800 mg-160 mg tablet RxNorm: 288091 1 Tablet(s) PO BID 06/03/2017 06/10/2017 Inactive mupirocin 2 % topical ointment RxNorm: 692446 1 Application TOP BID 06/03/2017 08/25/2017 Inactive Lyrica 100 mg capsule RxNorm: 444467 1 Capsule(s) PO BID as needed 05/27/2017 06/23/2017 Inactive Keflex 500 mg capsule RxNorm: 937043 1 Capsule(s) PO TID 05/27/2017 06/02/2017 Inactive Lexapro 10 mg tablet RxNorm: 495103 1 Tablet(s) PO daily 05/27/2017 08/25/2017 Inactive hydrocodone 5 mg-acetaminophen 325 mg tablet RxNorm: 632231 1 Tablet(s) PO TID 05/27/2017 06/23/2017 Inactive hydrocodone 7.5 mg-acetaminophen 325 mg tablet RxNorm: 638378 1 Tablet(s) PO TID as needed 05/13/2017 05/25/2017 Inactive hydrocodone 7.5 mg-acetaminophen 325 mg tablet RxNorm: 689419 1 Tablet(s) PO TID as needed 05/13/2017 05/12/2017 Inactive cyclobenzaprine 5 mg tablet RxNorm: 111784 TAKE ONE TABLET BY MOUTH THREE TIMES DAILY NEEDED FOR MUSCLE SPASM 05/01/2017 05/05/2017 Inactive hydrocodone 5 mg-acetaminophen 325 mg tablet RxNorm: 200852 1 Tablet(s) PO TID as needed 04/24/2017 05/12/2017 Inactive cyclobenzaprine 5 mg tablet RxNorm: 443265 1 Tablet(s) PO TID as needed muscle spasms 04/24/2017 04/28/2017 Inactive diazepam 10 mg tablet RxNorm: 888290 1 Tablet(s) PO TID as needed anxiety 02/22/2017 04/19/2017 Inactive norethindrone acetate 1 mg-ethinyl estradiol 20 mcg tablet RxNorm: 1794142 1 Tablet(s) PO daily 12/18/2016 07/15/2017 Inactive EEMT 1.25 mg-2.5 mg tablet RxNorm: 743713 1 Tablet(s) PO daily 12/06/2016 03/05/2017 Inactive EEMT 1.25 mg-2.5 mg tablet RxNorm: 181480 1 Tablet(s) PO daily 12/06/2016 12/05/2016 Inactive Lexapro 10 mg tablet RxNorm: 086519 1 Tablet(s) PO daily 12/06/2016 05/04/2017 Inactive diazepam 10 mg tablet RxNorm: 900351 1 Tablet(s) PO TID 11/09/2016 12/07/2016 Inactive phentermine 37.5 mg tablet RxNorm: 051762 1 Tablet(s) PO daily 10/25/2016 08/23/2017 Inactive EEMT 1.25 mg-2.5 mg tablet RxNorm: 447844 1 Tablet(s) PO daily 10/25/2016 12/05/2016 Inactive phentermine 37.5 mg tablet RxNorm: 422603 1 Tablet(s) PO daily 09/20/2016 10/24/2016 Inactive Lexapro 10 mg tablet RxNorm: 811393 1 Tablet(s) PO daily 07/10/2016 12/05/2016 Inactive Lexapro 10 mg tablet RxNorm: 404518 1 Tablet(s) PO daily 06/12/2016 07/09/2016 Inactive norethindrone acetate 1 mg-ethinyl estradiol 20 mcg tablet RxNorm: 2615930 1 Tablet(s) PO daily 06/12/2016 12/17/2016 Inactive hydrocodone 10 mg-acetaminophen 325 mg tablet RxNorm: 049722 1 Tablet(s) PO TID No Start Date 05/12/2017 Inactive phentermine 37.5 mg tablet RxNorm: 507396 1 Tablet(s) PO daily No Start Date 09/19/2016 Inactive norethindrone acetate 1 mg-ethinyl estradiol 20 mcg tablet RxNorm: 5659563 1 Tablet(s) PO daily No Start Date 06/11/2016 Inactive EEMT 1.25 mg-2.5 mg tablet RxNorm: 510413 1 Tablet(s) PO daily No Start Date [...] 1: 130/74 Code: 8480-6 BMI: 30.7 Code: 63667-7 Heart Rate 1: 82 bpm Height: 5'2" SpO2: 97% Weight: 168 lbs 11/27/2018 Blood Pressure 1: 130/74 Code: 8480-6 Weight: 168 lbs 10/09/2018 Blood Pressure 1: 128/74 Code: 8480-6 BMI: 31.1 Code: 53037-0 Heart Rate 1: 81 bpm Height: 5'2" SpO2: 97% Weight: 170 lbs 08/29/2018 Blood Pressure 1: 120/70 Code: 8480-6 BMI: 31.1 Code: 90010-9 Heart Rate 1: 65 bpm Height: 5'2" Weight: 170 lbs 07/18/2018 Blood Pressure 1: 126/88 Code: 8480-6 Heart Rate 1: 78 bpm Height: SpO2: 97% Weight: 07/16/2018 Blood Pressure 1: 130/78 Code: 8480-6 Heart Rate 1: 84 bpm Weight: 172 lbs 06/18/2018 Blood Pressure 1: 128/80 Code: 8480-6 BMI: 31.1 Code: 19591-6 Heart Rate 1: 80 bpm Height: 5'2" SpO2: 97% Weight: 170 lbs 02/28/2018 Blood Pressure 1: 120/78 Code: 8480-6 BMI: 31.6 Code: 79041-2 Heart Rate 1: 66 bpm Height: 5'2" SpO2: 98% Weight: 173 lbs 12/09/2017 Blood Pressure 1: 116/74 Code: 8480-6 BMI: 31.5 Code: 69684-8 Heart Rate 1: 74 bpm Height: 5'2" SpO2: 95% Weight: 172 lbs 10/21/2017 Blood Pressure 1: 136/82 Code: 8480-6 BMI: 30.4 Code: 93329-9 Heart Rate 1: 79 bpm Height: 5'2" SpO2: 97% Weight: 166 lbs 09/26/2017 Blood Pressure 1: 122/80 Code: 8480-6 BMI: 30.4 Code: 14514-1 Heart Rate 1: 63 bpm Height: 5'2" SpO2: 98% Weight: 166 lbs 08/27/2017 Blood Pressure 1: 132/70 Code: 8480-6 BMI: 30.7 Code: 11053-0 Heart Rate 1: 89 bpm Height: 5'2" SpO2: 98% Weight: 168 lbs 05/27/2017 Blood Pressure 1: 132/72 Code: 8480-6 BMI: 28.9 Code: 80135-4 Heart Rate 1: 72 bpm Height: 5'2" SpO2: 98% Weight: 158 lbs 04/24/2017 Blood Pressure 1: 140/76 Code: 8480-6 BMI: 29.3 Code: 15241-3 Heart Rate 1: 77 bpm Height: 5'2" SpO2: 97% Weight: 160 lbs 03/27/2017 Blood Pressure 1: 128/74 Code: 8480-6 BMI: 29.1 Code: 40359-4 Heart Rate 1: 74 bpm Height: 5'2" SpO2: 98% Temperature: 36.8 (C) / 98.3 (F) Weight: 159 lbs 10/25/2016 Blood Pressure 1: 116/74 Code: 8480-6 BMI: 28.9 Code: 32552-4 Heart Rate 1: 68 bpm Height: 5'2" SpO2: 99% Weight: 158 lbs 09/20/2016 Blood Pressure 1: 116/70 Code: 8480-6 Heart Rate 1: 72 bpm Weight: 150 lbs 08/24/2016 Blood Pressure 1: 118/62 Code: 8480-6 BMI: 27.6 Code: 20868-5 Heart Rate 1: 63 bpm Height: 5'2" SpO2: 99% Weight: 151 lbs 06/12/2016 Blood Pressure 1: 122/74 Code: 8480-6 BMI: 26.9 Code: 81830-3 Heart Rate 1: 52 bpm Height: 5'2" [...] years) Pap Smear last normal performed on 20-14-__ 03/27/2017 None well woman exam (18-39 [...] G89.4] [facility] CPT- 4: 61827 12/08/2018 ([id number]) Miscellaneous no charge Diagnosis: Overweight[ICD10: E66.3] [facility] CPT-4: 63967 11/27/2018 [id number] EST. PATIENT, LEVEL III Diagnosis: Chronic pain syndrome[ICD10: G89.4] Diagnosis: Menopausal and female climacteric states[ICD10: N95.1] [facility] CPT-4: 02727 10/09/2018 ([id number]) Miscellaneous no charge Diagnosis: Overweight[ICD10: E66.3] [facility], [facility] CPT-4: 84630 08/29/2018 83064 EST. PATIENT, LEVEL III Diagnosis: Generalized anxiety disorder[ICD10: F41.1] Diagnosis: Major depressive disorder, single episode, moderate[ICD10: F32.1] [facility], [facility] CPT-4: 70452 07/18/2018 ([id number]) Miscellaneous no charge Diagnosis: Overweight[ICD10: E66.3] [facility], [facility] CPT-4: 79073 07/16/2018 58067 EST. PATIENT, LEVEL III Diagnosis: Chronic pain syndrome[ICD10: G89.4] Diagnosis: Overweight[ICD10: E66.3] [facility], [facility] CPT-4: 14531 06/18/2018 29518 EST. PATIENT, LEVEL IV Diagnosis: Chronic pain syndrome[ICD10: G89.4] Diagnosis: Overweight[ICD10: E66.3] [facility] MD, [facility] CPT-4: 20640 02/28/2018 34284 EST. PATIENT, LEVEL III Diagnosis: Chronic pain syndrome[ICD10: G89.4] Diagnosis: Overweight[ICD10: E66.3] [facility], [facility] CPT-4: 43023 12/09/2017 30061 EST. PATIENT, LEVEL III Diagnosis: Chronic pain syndrome[ICD10: G89.4] Diagnosis: Overweight[ICD10: E66.3] [facility], [facility] CPT-4: 04585 10/21/2017 ([id number]) Miscellaneous no charge Diagnosis: Overweight[ICD10: E66.3] [facility], [facility] CPT-4: 89329 09/26/2017 71342 EST. PATIENT, LEVEL III Diagnosis: Chronic pain syndrome[ICD10: G89.4] Diagnosis: Overweight[ICD10: E66.3] [facility] MD, [facility] CPT-4: 55167 08/27/2017 53034 EST. PATIENT, LEVEL III Diagnosis: Chronic pain syndrome[ICD10: G89.4] Diagnosis: Generalized anxiety disorder[ICD10: F41.1] Diagnosis: Major depressive disorder, single episode, moderate[ICD10: F32.1] Diagnosis: Cellulitis of right lower limb[ICD10: L03.115] [facility], [facility] CPT-4: 46990 05/27/2017 ([id number]) 84420 EST. PATIENT, LEVEL IV Diagnosis: Generalized anxiety disorder[ICD10: F41.1] Diagnosis: Major depressive disorder, single episode, moderate[ICD10: F32.1] Diagnosis: Menopausal and female climacteric states[ICD10: N95.1] Diagnosis: Chronic pain syndrome[ICD10: G89.4] [facility] CPT- 4: 15218 04/24/2017 ([id number]) PREV VISIT EST AGE 18-39 Diagnosis: Encounter for gynecological examination (general) (routine) without abnormal findings[ICD10: Z01.419] [facility] CPT-4: 38578 03/27/2017 ([id number]) 97696 EST. PATIENT, LEVEL III Diagnosis: Overweight[ICD10: E66.3] [facility] CPT-4: 54427 10/25/2016 ([id number]) Miscellaneous no charge Diagnosis: Overweight[ICD10: E66.3] [facility] CPT-4: 01308 09/20/2016 35842 EST. PATIENT, LEVEL IV Diagnosis: Other fatigue[ICD10: R53.83] Diagnosis: Overweight[ICD10: E66.3] Diagnosis: Generalized anxiety disorder[ICD10: F41.1] [facility] CPT-4: 99194 08/24/2016 ([id number]) OFFICE VISIT, NEW - LEVEL 4 Diagnosis: Generalized anxiety disorder[ICD10: F41.1] Diagnosis: Major depressive disorder, single episode, moderate[ICD10: F32.1] [facility] CPT-4: 49420 06/12/2016 Plan of Care Planned Activity Notes Codes Status Date Visit Plan: Chronic Pain Syndrome - pt has chronic pain - has been maintained on current medications, has not sought out other medications, only uses PRN pain medications as directed, and understands the consequences of over-medication. 12/08/2018 Patient Education: Patient Medication Summary Completed [...] concerns. 10/09/2018 Appointment: Veda Du[facility] [phone] [facility] [place] ([place] min) Moderate 10/09/2018 Patient Education: Patient [...] this patient. 07/18/2018 Appointment: Veda Duenas [facility] [phone] [facility] [place] ([place] min) Moderate 07/18/2018 Patient Education: Patient [...] weight check. 06/18/2018 Appointment: Veda Duenas WPtel: [address] [place], [place] [phone] (15 min) Moderate 06/18/2018 Patient Education: [...] weight check. 02/28/2018 Appointment: Veda Duenas WPtel: [address] [place], [place] [phone] (30 min) Complex 02/28/2018 Patient Education: Patient Medication Summary Completed 02/28/2018 Patient Education: Obesity Completed 02/28/2018 Appointment: Veda Duenas WPtel: [address] [place], [place] [phone] (15 min) Moderate 02/27/2018 Visit Plan: Chronic [...] weight check. 12/09/2017 Appointment: Veda Duenas WPtel: [facility] (15 min) Moderate 12/09/2017 Patient Education: Patient [...] weight check. 10/21/2017 Appointment: Veda Duenas WPtel: [phone] [facility] (15 min) Moderate 10/21/2017 Patient Education: Patient Medication Summary Completed 10/21/2017 Patient Education: Obesity Completed 10/21/2017 Appointment: Nurse Visit 09/26/2017 Patient Education: Patient Medication Summary Completed 09/26/2017 Appointment: Veda Duenas WPtel: [facility] (30 min) Complex 08/30/2017 Visit Plan: [...] warmth, discharge. 05/27/2017 Appointment: Veda Duenas WPtel: [facility] (30 min) Complex 05/27/2017 Patient Education: Patient [...] new RX. 04/24/2017 Appointment: Veda Duenas WPtel: [address] [place], [place] [address] (30 min) Complex 04/24/2017 Patient Education: Patient [...] 03/27/2017 Appointment: Veda Duenas WPtel: [facility] Well Woman 03/27/2017 Patient Education: Patient Medication Summary Completed 03/27/2017 Care Plan: BMI Above normal followup SELF-MGMT EDUC & TRAIN 1 PT Pending 11/07/2016 Visit Plan: Obesity - chronic issue with this patient. The pt has been counseled about diet changes, calorie restriction, and need to exercise. Pt will RTC in one month for weight check. 10/25/2016 Appointment: Veda Duenas WPtel: [facility] (15 min) Moderate 10/25/2016 Patient Education: Patient [...] weight check. 08/24/2016 Appointment: Radha Mcgowan WPtel: [facility] [phone] (30 min) Complex 08/24/2016 Appointment: Radha Mcgowan WPtel: [facility] [phone] (30 min) Complex 08/24/2016 Appointment: Radha Mcgowan WPtel: [phone] (30 min) Complex 08/24/2016 Patient Education: Patient [...] this patient. 06/12/2016 Appointment: Radha Mcgowan WPtel: [facility] [phone] New Patient 06/12/2016 Patient Education: Patient Medication [...]
--- OUTSIDE RECORDS SUMMARY | 2019-07-01 06:35 | XMS REPORT | CCD ---
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 Name Role Phone PP Unavailable CCM Unavailable Summary Purpose Interface Exchange Insurance Providers Payer name Policy type / Coverage type Covered democrat ID Effective Begin Date Effective End Date [employer] Insurance [id number] 2018 Unknown Family history Father Diagnosis Age At Onset Diabetes Unknown Hyperlipidemia Unknown Hypertension Unknown Heart Attack Unknown Social History Social History Element Codes Description Effective Dates Marital status Unknown CJ 06/12/2016 Number of children Unknown 3 06/12/[address]: 116936812 Never smoker 06/12/[address]: 863670289 Never drinks alcohol 06/12/2016 Allergies, Adverse Reactions, [...] Fill Instructions phentermine 37.5 mg tablet RxNorm: 813821 1 Tablet(s) PO daily 11/27/2018 No Stop Date Active Lexapro 10 mg tablet RxNorm: 117425 TAKE 1 TABLET BY MOUTH ONCE DAILY 11/26/2018 No Stop Date Active cyclobenzaprine 5 mg tablet RxNorm: 412801 TAKE ONE TABLET BY MOUTH THREE TIMES DAILY NEEDED FOR MUSCLE SPASM 11/12/2018 No Stop Date Active hydrocodone 5 mg-acetaminophen 325 mg tablet RxNorm: 847642 1-1.5 Tablet(s) PO QID as needed 11/06/2018 12/05/2018 Inactive Lyrica 100 mg capsule RxNorm: 218318 1 Capsule(s) PO BID as needed 10/31/2018 01/28/2019 Active pravastatin 20 mg tablet RxNorm: 899029 1 Tablet(s) PO QPM 10/28/2018 02/24/2019 Active pravastatin 20 mg tablet RxNorm: 174803 1 Tablet(s) PO QPM 10/28/2018 10/27/2018 Inactive EEMT 1.25 mg-2.5 mg tablet RxNorm: 543688 1 Tablet(s) PO daily 10/09/2018 01/06/2019 Active norethindrone acetate 1 mg-ethinyl estradiol 20 mcg tablet RxNorm: 5579801 1 Tablet(s) PO daily 10/09/2018 10/03/2019 Active hydrocodone 5 mg-acetaminophen 325 mg tablet RxNorm: 816949 1-1.5 Tablet(s) PO QID as needed 10/09/2018 11/05/2018 Inactive hydrocodone 5 mg-acetaminophen 325 mg tablet RxNorm: 100297 1-1.5 Tablet(s) PO QID as needed 09/11/2018 10/08/2018 Inactive phentermine 37.5 mg tablet RxNorm: 551832 1 Tablet(s) PO daily 08/29/2018 11/26/2018 Inactive cyclobenzaprine 5 mg tablet RxNorm: 162743 TAKE ONE TABLET BY MOUTH THREE TIMES DAILY NEEDED FOR MUSCLE SPASM 08/27/2018 11/11/2018 Inactive hydrocodone 5 mg-acetaminophen 325 mg tablet RxNorm: 007731 1-1.5 Tablet(s) PO QID as needed 08/14/2018 09/10/2018 Inactive Lexapro 10 mg tablet RxNorm: 876462 1 Tablet(s) PO daily 07/18/2018 08/16/2018 Inactive diazepam 10 mg tablet RxNorm: 585211 1 Tablet(s) PO TID as needed anxiety 07/11/2018 07/14/2018 Inactive Zorvolex 35 mg capsule RxNorm: 9963411 1 Capsule(s) PO TID 06/18/2018 No Stop Date Active hydrocodone 5 mg-acetaminophen 325 mg tablet RxNorm: 446293 1-1.5 Tablet(s) PO QID as needed 06/18/2018 07/17/2018 Inactive cyclobenzaprine 5 mg tablet RxNorm: 900253 TAKE ONE TABLET BY MOUTH THREE TIMES DAILY NEEDED FOR MUSCLE SPASM 06/04/2018 08/26/2018 Inactive hydrocodone 5 mg-acetaminophen 325 mg tablet RxNorm: 333794 1-1.5 Tablet(s) PO QID as needed 05/26/2018 06/17/2018 Inactive cyclobenzaprine 5 mg tablet RxNorm: 194929 TAKE ONE TABLET BY MOUTH THREE TIMES DAILY NEEDED FOR MUSCLE SPASM 05/07/2018 06/03/2018 Inactive ibuprofen 800 mg tablet RxNorm: 975201 TAKE ONE TABLET BY MOUTH THREE TIMES DAILY NEEDED 04/28/2018 No Stop Date Active hydrocodone 5 mg-acetaminophen 325 mg tablet RxNorm: 153086 1-1.5 Tablet(s) PO QID as needed 04/28/2018 05/25/2018 Inactive diazepam 10 mg tablet RxNorm: 219567 1 Tablet(s) PO TID as needed anxiety 04/22/2018 06/19/2018 Inactive hydrocodone 5 mg-acetaminophen 325 mg tablet RxNorm: 828436 1-1.5 Tablet(s) PO QID as needed 03/25/2018 04/23/2018 Inactive cyclobenzaprine 5 mg tablet RxNorm: 703571 TAKE ONE TABLET BY MOUTH THREE TIMES DAILY NEEDED FOR MUSCLE SPASM 03/17/2018 05/06/2018 Inactive hydrocodone 5 mg-acetaminophen 325 mg tablet RxNorm: 128629 1-1.5 Tablet(s) PO QID as needed 03/02/2018 03/24/2018 Inactive phentermine 37.5 mg tablet RxNorm: 565862 1 Tablet(s) PO daily 03/02/2018 08/28/2018 Inactive hydrocodone 5 mg-acetaminophen 325 mg tablet RxNorm: 532984 1-1.5 Tablet(s) PO QID as needed 02/03/2018 03/01/2018 Inactive diazepam 10 mg tablet RxNorm: 437374 1 Tablet(s) PO TID as needed anxiety 01/01/2018 02/28/2018 Inactive hydrocodone 5 mg-acetaminophen 325 mg tablet RxNorm: 423786 1-1.5 Tablet(s) PO QID as needed 12/09/2017 01/07/2018 Inactive ibuprofen 800 mg tablet RxNorm: 792861 1 Tablet(s) PO TID as needed 12/09/2017 01/07/2018 Inactive Lyrica 100 mg capsule RxNorm: 099219 1 Capsule(s) PO BID as needed 12/09/2017 03/07/2018 Inactive cyclobenzaprine 5 mg tablet RxNorm: 087541 TAKE ONE TABLET BY MOUTH THREE TIMES DAILY NEEDED FOR MUSCLE SPASM 12/03/2017 03/16/2018 Inactive hydrocodone 5 mg-acetaminophen 325 mg tablet RxNorm: 505432 1-1.5 Tablet(s) PO QID as needed 10/21/2017 11/19/2017 Inactive hydrocodone 7.5 mg-acetaminophen 325 mg tablet RxNorm: 936217 1 Tablet(s) PO QID as needed 09/26/2017 10/20/2017 Inactive phentermine 37.5 mg tablet RxNorm: 384406 1 Tablet(s) PO daily 09/26/2017 10/01/2017 Inactive Lyrica 100 mg capsule RxNorm: 731797 1 Capsule(s) PO BID as needed 09/12/2017 12/08/2017 Inactive hydrocodone 7.5 mg-acetaminophen 325 mg tablet RxNorm: 119001 1 Tablet(s) PO QID as needed 08/27/2017 09/23/2017 Inactive Belviq XR 20 mg tablet,extended release RxNorm: 8236765 1 Tablet(s) PO daily 08/27/2017 09/23/2017 Inactive cyclobenzaprine 5 mg tablet RxNorm: 204421 1 Tablet(s) PO TID as needed muscle spasms 08/19/2017 08/23/2017 Inactive hydrocodone 7.5 mg-acetaminophen 325 mg tablet RxNorm: 946188 1 Tablet(s) PO QID as needed 08/02/2017 08/26/2017 Inactive hydrocodone 7.5 mg-acetaminophen 325 mg tablet RxNorm: 650047 1 Tablet(s) PO TID as needed 08/02/2017 08/01/2017 Inactive diazepam 10 mg tablet RxNorm: 762649 1 Tablet(s) PO TID as needed anxiety 07/24/2017 02/02/2018 Inactive hydrocodone 7.5 mg-acetaminophen 325 mg tablet RxNorm: 098618 1 Tablet(s) PO TID as needed 07/11/2017 08/01/2017 Inactive Lyrica 100 mg capsule RxNorm: 514601 1 Capsule(s) PO BID as needed 06/24/2017 09/20/2017 Inactive hydrocodone 5 mg-acetaminophen 325 mg tablet RxNorm: 116468 1 Tablet(s) PO TID 06/24/2017 07/30/2017 Inactive prednisone 10 mg tablet RxNorm: 183954 1 Tablet(s) PO daily 06/18/2017 06/17/2017 Inactive 6-5-4-3-2-1 then stop prednisone 10 mg tablet RxNorm: 625323 1 Tablet(s) PO daily 06/18/2017 08/25/2017 Inactive 6-5-4-3-2-1 then stop Bactrim DS 800 mg-160 mg tablet RxNorm: 923040 1 Tablet(s) PO BID 06/11/2017 06/14/2017 Inactive Bactrim DS 800 mg-160 mg tablet RxNorm: 552106 1 Tablet(s) PO BID 06/03/2017 06/10/2017 Inactive mupirocin 2 % topical ointment RxNorm: 988353 1 Application TOP BID 06/03/2017 08/25/2017 Inactive Lyrica 100 mg capsule RxNorm: 885164 1 Capsule(s) PO BID as needed 05/27/2017 06/23/2017 Inactive Keflex 500 mg capsule RxNorm: 632848 1 Capsule(s) PO TID 05/27/2017 06/02/2017 Inactive Lexapro 10 mg tablet RxNorm: 016752 1 Tablet(s) PO daily 05/27/2017 08/25/2017 Inactive hydrocodone 5 mg-acetaminophen 325 mg tablet RxNorm: 086012 1 Tablet(s) PO TID 05/27/2017 06/23/2017 Inactive hydrocodone 7.5 mg-acetaminophen 325 mg tablet RxNorm: 797357 1 Tablet(s) PO TID as needed 05/13/2017 05/25/2017 Inactive hydrocodone 7.5 mg-acetaminophen 325 mg tablet RxNorm: 175234 1 Tablet(s) PO TID as needed 05/13/2017 05/12/2017 Inactive cyclobenzaprine 5 mg tablet RxNorm: 488080 TAKE ONE TABLET BY MOUTH THREE TIMES DAILY NEEDED FOR MUSCLE SPASM 05/01/2017 05/05/2017 Inactive hydrocodone 5 mg-acetaminophen 325 mg tablet RxNorm: 854237 1 Tablet(s) PO TID as needed 04/24/2017 05/12/2017 Inactive cyclobenzaprine 5 mg tablet RxNorm: 954163 1 Tablet(s) PO TID as needed muscle spasms 04/24/2017 04/28/2017 Inactive diazepam 10 mg tablet RxNorm: 576388 1 Tablet(s) PO TID as needed anxiety 02/22/2017 04/19/2017 Inactive norethindrone acetate 1 mg-ethinyl estradiol 20 mcg tablet RxNorm: 4642587 1 Tablet(s) PO daily 12/18/2016 07/15/2017 Inactive EEMT 1.25 mg-2.5 mg tablet RxNorm: 457063 1 Tablet(s) PO daily 12/06/2016 03/05/2017 Inactive EEMT 1.25 mg-2.5 mg tablet RxNorm: 432198 1 Tablet(s) PO daily 12/06/2016 12/05/2016 Inactive Lexapro 10 mg tablet RxNorm: 902304 1 Tablet(s) PO daily 12/06/2016 05/04/2017 Inactive diazepam 10 mg tablet RxNorm: 457812 1 Tablet(s) PO TID 11/09/2016 12/07/2016 Inactive phentermine 37.5 mg tablet RxNorm: 833019 1 Tablet(s) PO daily 10/25/2016 08/23/2017 Inactive EEMT 1.25 mg-2.5 mg tablet RxNorm: 087684 1 Tablet(s) PO daily 10/25/2016 12/05/2016 Inactive phentermine 37.5 mg tablet RxNorm: 764682 1 Tablet(s) PO daily 09/20/2016 10/24/2016 Inactive Lexapro 10 mg tablet RxNorm: 513559 1 Tablet(s) PO daily 07/10/2016 12/05/2016 Inactive Lexapro 10 mg tablet RxNorm: 197426 1 Tablet(s) PO daily 06/12/2016 07/09/2016 Inactive norethindrone acetate 1 mg-ethinyl estradiol 20 mcg tablet RxNorm: 7281893 1 Tablet(s) PO daily 06/12/2016 12/17/2016 Inactive hydrocodone 10 mg-acetaminophen 325 mg tablet RxNorm: 098855 1 Tablet(s) PO TID No Start Date 05/12/2017 Inactive phentermine 37.5 mg tablet RxNorm: 541094 1 Tablet(s) PO daily No Start Date 09/19/2016 Inactive norethindrone acetate 1 mg-ethinyl estradiol 20 mcg tablet RxNorm: 9148032 1 Tablet(s) PO daily No Start Date 06/11/2016 Inactive EEMT 1.25 mg-2.5 mg tablet RxNorm: 339175 1 Tablet(s) PO daily No Start Date [...] 1: 130/74 Code: 8480-6 BMI: 30.7 Code: 68659-0 Heart Rate 1: 82 bpm Height: 5'2" SpO2: 97% Weight: 168 lbs 11/27/2018 Blood Pressure 1: 130/74 Code: 8480-6 Weight: 168 lbs 10/09/2018 Blood Pressure 1: 128/74 Code: 8480-6 BMI: 31.1 Code: 70998-4 Heart Rate 1: 81 bpm Height: 5'2" SpO2: 97% Weight: 170 lbs 08/29/2018 Blood Pressure 1: 120/70 Code: 8480-6 BMI: 31.1 Code: 06667-3 Heart Rate 1: 65 bpm Height: 5'2" Weight: 170 lbs 07/18/2018 Blood Pressure 1: 126/88 Code: 8480-6 Heart Rate 1: 78 bpm Height: SpO2: 97% Weight: 07/16/2018 Blood Pressure 1: 130/78 Code: 8480-6 Heart Rate 1: 84 bpm Weight: 172 lbs 06/18/2018 Blood Pressure 1: 128/80 Code: 8480-6 BMI: 31.1 Code: 60808-8 Heart Rate 1: 80 bpm Height: 5'2" SpO2: 97% Weight: 170 lbs 02/28/2018 Blood Pressure 1: 120/78 Code: 8480-6 BMI: 31.6 Code: 67014-2 Heart Rate 1: 66 bpm Height: 5'2" SpO2: 98% Weight: 173 lbs 12/09/2017 Blood Pressure 1: 116/74 Code: 8480-6 BMI: 31.5 Code: 66905-0 Heart Rate 1: 74 bpm Height: 5'2" SpO2: 95% Weight: 172 lbs 10/21/2017 Blood Pressure 1: 136/82 Code: 8480-6 BMI: 30.4 Code: 23660-9 Heart Rate 1: 79 bpm Height: 5'2" SpO2: 97% Weight: 166 lbs 09/26/2017 Blood Pressure 1: 122/80 Code: 8480-6 BMI: 30.4 Code: 94654-5 Heart Rate 1: 63 bpm Height: 5'2" SpO2: 98% Weight: 166 lbs 08/27/2017 Blood Pressure 1: 132/70 Code: 8480-6 BMI: 30.7 Code: 24537-5 Heart Rate 1: 89 bpm Height: 5'2" SpO2: 98% Weight: 168 lbs 05/27/2017 Blood Pressure 1: 132/72 Code: 8480-6 BMI: 28.9 Code: 96764-3 Heart Rate 1: 72 bpm Height: 5'2" SpO2: 98% Weight: 158 lbs 04/24/2017 Blood Pressure 1: 140/76 Code: 8480-6 BMI: 29.3 Code: 29805-2 Heart Rate 1: 77 bpm Height: 5'2" SpO2: 97% Weight: 160 lbs 03/27/2017 Blood Pressure 1: 128/74 Code: 8480-6 BMI: 29.1 Code: 24918-8 Heart Rate 1: 74 bpm Height: 5'2" SpO2: 98% Temperature: 36.8 (C) / 98.3 (F) Weight: 159 lbs 10/25/2016 Blood Pressure 1: 116/74 Code: 8480-6 BMI: 28.9 Code: 56143-8 Heart Rate 1: 68 bpm Height: 5'2" SpO2: 99% Weight: 158 lbs 09/20/2016 Blood Pressure 1: 116/70 Code: 8480-6 Heart Rate 1: 72 bpm Weight: 150 lbs 08/24/2016 Blood Pressure 1: 118/62 Code: 8480-6 BMI: 27.6 Code: 43263-1 Heart Rate 1: 63 bpm Height: 5'2" SpO2: 99% Weight: 151 lbs 06/12/2016 Blood Pressure 1: 122/74 Code: 8480-6 BMI: 26.9 Code: 47330-7 Heart Rate 1: 52 bpm Height: 5'2" [...] G89.4] [facility] CPT- 4: 85571 12/08/2018 ([id number]) Miscellaneous no charge Diagnosis: Overweight[ICD10: E66.3] [facility] CPT-4: 79241 11/27/2018 [id number] EST. PATIENT, LEVEL III Diagnosis: Chronic pain syndrome[ICD10: G89.4] Diagnosis: Menopausal and female climacteric states[ICD10: N95.1] [facility] CPT-4: 58347 10/09/2018 ([id number]) Miscellaneous no charge Diagnosis: Overweight[ICD10: E66.3] [facility], [facility] CPT-4: 93569 08/29/2018 83210 EST. PATIENT, LEVEL III Diagnosis: Generalized anxiety disorder[ICD10: F41.1] Diagnosis: Major depressive disorder, single episode, moderate[ICD10: F32.1] [facility] MD, [facility] CPT-4: 58340 07/18/2018 ([id number]) Miscellaneous no charge Diagnosis: Overweight[ICD10: E66.3] [facility], [facility] CPT-4: 16016 07/16/2018 11575 EST. PATIENT, LEVEL III Diagnosis: Chronic pain syndrome[ICD10: G89.4] Diagnosis: Overweight[ICD10: E66.3] [facility] Jama MD, [facility] CPT-4: 01957 06/18/2018 59071 EST. PATIENT, LEVEL IV Diagnosis: Chronic pain syndrome[ICD10: G89.4] Diagnosis: Overweight[ICD10: E66.3] [facility], [facility] CPT-4: 54355 02/28/2018 32498 EST. PATIENT, LEVEL III Diagnosis: Chronic pain syndrome[ICD10: G89.4] Diagnosis: Overweight[ICD10: E66.3] Veda Jama MD, [facility] CPT-4: 89949 12/09/2017 68269 EST. PATIENT, LEVEL III Diagnosis: Chronic pain syndrome[ICD10: G89.4] Diagnosis: Overweight[ICD10: E66.3] [facility], [facility] CPT-4: 07392 10/21/2017 ([id number]) Miscellaneous no charge Diagnosis: Overweight[ICD10: E66.3] [facility], [facility] CPT-4: 86801 09/26/2017 21386 EST. PATIENT, LEVEL III Diagnosis: Chronic pain syndrome[ICD10: G89.4] Diagnosis: Overweight[ICD10: E66.3] Veda Jmaa MD, [facility] CPT-4: 03615 08/27/2017 65143 EST. PATIENT, LEVEL III Diagnosis: Chronic pain syndrome[ICD10: G89.4] Diagnosis: Generalized anxiety disorder[ICD10: F41.1] Diagnosis: Major depressive disorder, single episode, moderate[ICD10: F32.1] Diagnosis: Cellulitis of right lower limb[ICD10: L03.115] [facility]eda Jama MD, [facility] CPT-4: 26609 05/27/2017 ([id number]) 86007 EST. PATIENT, LEVEL IV Diagnosis: Generalized anxiety disorder[ICD10: F41.1] Diagnosis: Major depressive disorder, single episode, moderate[ICD10: F32.1] Diagnosis: Menopausal and female climacteric states[ICD10: N95.1] Diagnosis: Chronic pain syndrome[ICD10: G89.4] [facility] CPT- 4: 50801 04/24/2017 ([id number]) PREV VISIT EST AGE 18-39 Diagnosis: Encounter for gynecological examination (general) (routine) without abnormal findings[ICD10: Z01.419] [facility] CPT-4: 47674 03/27/2017 ([id number]) 63913 EST. PATIENT, LEVEL III Diagnosis: Overweight[ICD10: E66.3] [facility] CPT-4: 64507 10/25/2016 ([id number]) Miscellaneous no charge Diagnosis: Overweight[ICD10: E66.3] [facility] CPT-4: 50448 09/20/2016 58124 EST. PATIENT, LEVEL IV Diagnosis: Other fatigue[ICD10: R53.83] Diagnosis: Overweight[ICD10: E66.3] Diagnosis: Generalized anxiety disorder[ICD10: F41.1] [facility] CPT-4: 47216 08/24/2016 ([id number]) OFFICE VISIT, NEW - LEVEL 4 Diagnosis: Generalized anxiety disorder[ICD10: F41.1] Diagnosis: Major depressive disorder, single episode, moderate[ICD10: F32.1] [facility] CPT-4: 49371 06/12/2016 Plan of Care Planned Activity Notes [...] concerns. 10/09/2018 Appointment[phone] [facility] ([facility] [place] Moderate 10/09/2018 Patient Education: Patient [...] patient. 07/18/2018 Appointment: [facility] (15 min) Moderate 07/18/2018 Patient Education: Patient [...] weight check. 06/18/2018 Appointment: Veda Duenas WPtel: [address] [place], [place] [phone] (15 min) Moderate 06/18/2018 Patient Education: [...] month for weight check. 02/28/2018 Appointment: Veda Dueans WPtel: [address] [place], [place] [phone] (30 min) Complex 02/28/2018 Patient Education: Patient Medication Summary Completed 02/28/2018 Patient Education: Obesity Completed 02/28/2018 Appointment: Veda Duenas WPtel: [address] [place], [place] [phone] (15 min) Moderate 02/27/2018 Visit Plan: Chronic [...] weight check. 12/09/2017 Appointment: Veda Duenas WPtel: [facility] (15 min) Moderate 12/09/2017 Patient Education: [...] check. 10/21/2017 Appointment: Veda Duenas WPtel: [phone] [facility] (15 min) Moderate 10/21/2017 Patient Education: Patient Medication Summary Completed 10/21/2017 Patient Education: Obesity Completed 10/21/2017 Appointment: Nurse Visit 09/26/2017 Patient Education: Patient Medication Summary Completed 09/26/2017 Appointment: Veda Duenas WPtel: [facility] (30 min) Complex 08/30/2017 Visit Plan: [...] warmth, discharge. 05/27/2017 Appointment: Veda Duenas WPtel: [facility] (30 min) Complex 05/27/2017 Patient Education: [...] new RX. 04/24/2017 Appointment: Veda Duenas WPtel: [address] [place], [place] [address] (30 min) Complex 04/24/2017 Patient Education: Patient [...] per pharmacy. 03/27/2017 Appointment: Veda Duenas WPtel: [facility] [facility] 03/27/2017 Patient Education: Patient Medication Summary Completed 03/27/2017 Care Plan: BMI Above normal followup SELF-MGMT EDUC & TRAIN 1 PT Pending 11/07/2016 Visit Plan: Obesity - chronic issue with this patient. The pt has been counseled about diet changes, calorie restriction, and need to exercise. Pt will RTC in one month for weight check. 10/25/2016 Appointment: Veda Duenas WPtel: [facility] (15 min) Moderate 10/25/2016 Patient Education: [...] weight check. 08/24/2016 Appointment: Radha Mcgowan WPtel: [phone] ([facility] min) Complex 08/24/2016 Appointment: Radha Mcgowan WPtel: [phone] (30 min) Complex 08/24/2016 Appointment: Radha Mcgowan WPtel: [phone] (30 min) Complex 08/24/2016 Patient Education: [...] this patient. 06/12/2016 Appointment: Radha Mcgowan WPtel: [phone] New Patient 06/12/2016 Patient Education: Patient Medication [...]
--- OUTSIDE RECORDS SUMMARY | 2019-07-01 06:37 | XMS REPORT | CCD ---
Author Author Veda Duenas Organization Juju Jama MD, [facility] Address [address] [place] [address] Phone Care Team Providers Care Manager Advanced Name Role Phone PP Unavailable CCM Unavailable Summary Purpose Interface Exchange Insurance Providers Payer name Policy type / Coverage type Covered green party ID Effective Begin Date Effective End Date Blue Cross [facility] Blue Cross/[id number] Unknown Family history Father Diagnosis Age At Onset Diabetes Unknown Hyperlipidemia Unknown Hypertension Unknown Heart Attack Unknown Social History Social History Element Codes Description Effective Dates Marital status Unknown CJ 06/12/2016 Number of children Unknown 3 06/12/[address]: 470392835 Never smoker 06/12/[address]: 828111214 Never drinks alcohol 06/12/2016 Allergies, Adverse Reactions, Alerts Substance Reaction Codes Entered Date Inactivated Date Status * NO KNOWN DRUG ALLERGIES Unknown 06/12/2016 No Inactive Date Active Past Medical History Illness Codes Condition Status Onset Date Resolved Date Overweight ICD-9: 278.02 ICD-10: E66.3 Active 11/27/2018 Unknown Chronic pain syndrome ICD- 9: 338.4 ICD-10: G89.4 Active 04/24/2017 Unknown Menopausal and female climacteric states ICD-9: [...] Problems Condition Codes Effective Dates Condition Status Overweight ICD-9: 278.02 ICD-10: E66.3 11/27/2018 Active Chronic pain syndrome ICD- 9: 338.4 ICD-10: G89.4 04/24/2017 Active Menopausal and female climacteric states ICD-9: [...] Fill Instructions phentermine 37.5 mg tablet RxNorm: 294939 1 Tablet(s) PO daily 11/27/2018 No Stop Date Active Lexapro 10 mg tablet RxNorm: 779003 TAKE 1 TABLET BY MOUTH ONCE DAILY 11/26/2018 No Stop Date Active cyclobenzaprine 5 mg tablet RxNorm: 382168 TAKE ONE TABLET BY MOUTH THREE TIMES DAILY NEEDED FOR MUSCLE SPASM 11/12/2018 No Stop Date Active hydrocodone 5 mg-acetaminophen 325 mg tablet RxNorm: 064765 1-1.5 Tablet(s) PO QID as needed 11/06/2018 12/05/2018 Active Lyrica 100 mg capsule RxNorm: 118170 1 Capsule(s) PO BID as needed 10/31/2018 01/28/2019 Active pravastatin 20 mg tablet RxNorm: 682947 1 Tablet(s) PO QPM 10/28/2018 02/24/2019 Active pravastatin 20 mg tablet RxNorm: 566849 1 Tablet(s) PO QPM 10/28/2018 10/27/2018 Inactive EEMT 1.25 mg-2.5 mg tablet RxNorm: 214897 1 Tablet(s) PO daily 10/09/2018 01/06/2019 Active norethindrone acetate 1 mg-ethinyl estradiol 20 mcg tablet RxNorm: 8177155 1 Tablet(s) PO daily 10/09/2018 10/03/2019 Active hydrocodone 5 mg-acetaminophen 325 mg tablet RxNorm: 045146 1-1.5 Tablet(s) PO QID as needed 10/09/2018 11/05/2018 Inactive hydrocodone 5 mg-acetaminophen 325 mg tablet RxNorm: 455160 1-1.5 Tablet(s) PO QID as needed 09/11/2018 10/08/2018 Inactive phentermine 37.5 mg tablet RxNorm: 047775 1 Tablet(s) PO daily 08/29/2018 11/26/2018 Inactive cyclobenzaprine 5 mg tablet RxNorm: 148224 TAKE ONE TABLET BY MOUTH THREE TIMES DAILY NEEDED FOR MUSCLE SPASM 08/27/2018 11/11/2018 Inactive hydrocodone 5 mg-acetaminophen 325 mg tablet RxNorm: 890539 1-1.5 Tablet(s) PO QID as needed 08/14/2018 09/10/2018 Inactive Lexapro 10 mg tablet RxNorm: 073674 1 Tablet(s) PO daily 07/18/2018 08/16/2018 Inactive diazepam 10 mg tablet RxNorm: 972468 1 Tablet(s) PO TID as needed anxiety 07/11/2018 07/14/2018 Inactive Zorvolex 35 mg capsule RxNorm: 8127176 1 Capsule(s) PO TID 06/18/2018 No Stop Date Active hydrocodone 5 mg-acetaminophen 325 mg tablet RxNorm: 128249 1-1.5 Tablet(s) PO QID as needed 06/18/2018 07/17/2018 Inactive cyclobenzaprine 5 mg tablet RxNorm: 383231 TAKE ONE TABLET BY MOUTH THREE TIMES DAILY NEEDED FOR MUSCLE SPASM 06/04/2018 08/26/2018 Inactive hydrocodone 5 mg-acetaminophen 325 mg tablet RxNorm: 321446 1-1.5 Tablet(s) PO QID as needed 05/26/2018 06/17/2018 Inactive cyclobenzaprine 5 mg tablet RxNorm: 638012 TAKE ONE TABLET BY MOUTH THREE TIMES DAILY NEEDED FOR MUSCLE SPASM 05/07/2018 06/03/2018 Inactive ibuprofen 800 mg tablet RxNorm: 113133 TAKE ONE TABLET BY MOUTH THREE TIMES DAILY NEEDED 04/28/2018 No Stop Date Active hydrocodone 5 mg-acetaminophen 325 mg tablet RxNorm: 506279 1-1.5 Tablet(s) PO QID as needed 04/28/2018 05/25/2018 Inactive diazepam 10 mg tablet RxNorm: 683301 1 Tablet(s) PO TID as needed anxiety 04/22/2018 06/19/2018 Inactive hydrocodone 5 mg-acetaminophen 325 mg tablet RxNorm: 115570 1-1.5 Tablet(s) PO QID as needed 03/25/2018 04/23/2018 Inactive cyclobenzaprine 5 mg tablet RxNorm: 641175 TAKE ONE TABLET BY MOUTH THREE TIMES DAILY NEEDED FOR MUSCLE SPASM 03/17/2018 05/06/2018 Inactive hydrocodone 5 mg-acetaminophen 325 mg tablet RxNorm: 586451 1-1.5 Tablet(s) PO QID as needed 03/02/2018 03/24/2018 Inactive phentermine 37.5 mg tablet RxNorm: 183247 1 Tablet(s) PO daily 03/02/2018 08/28/2018 Inactive hydrocodone 5 mg-acetaminophen 325 mg tablet RxNorm: 984442 1-1.5 Tablet(s) PO QID as needed 02/03/2018 03/01/2018 Inactive diazepam 10 mg tablet RxNorm: 861273 1 Tablet(s) PO TID as needed anxiety 01/01/2018 02/28/2018 Inactive hydrocodone 5 mg-acetaminophen 325 mg tablet RxNorm: 143671 1-1.5 Tablet(s) PO QID as needed 12/09/2017 01/07/2018 Inactive ibuprofen 800 mg tablet RxNorm: 441906 1 Tablet(s) PO TID as needed 12/09/2017 01/07/2018 Inactive Lyrica 100 mg capsule RxNorm: 815858 1 Capsule(s) PO BID as needed 12/09/2017 03/07/2018 Inactive cyclobenzaprine 5 mg tablet RxNorm: 197413 TAKE ONE TABLET BY MOUTH THREE TIMES DAILY NEEDED FOR MUSCLE SPASM 12/03/2017 03/16/2018 Inactive hydrocodone 5 mg-acetaminophen 325 mg tablet RxNorm: 526692 1-1.5 Tablet(s) PO QID as needed 10/21/2017 11/19/2017 Inactive hydrocodone 7.5 mg-acetaminophen 325 mg tablet RxNorm: 062796 1 Tablet(s) PO QID as needed 09/26/2017 10/20/2017 Inactive phentermine 37.5 mg tablet RxNorm: 759679 1 Tablet(s) PO daily 09/26/2017 10/01/2017 Inactive Lyrica 100 mg capsule RxNorm: 564085 1 Capsule(s) PO BID as needed 09/12/2017 12/08/2017 Inactive hydrocodone 7.5 mg-acetaminophen 325 mg tablet RxNorm: 348230 1 Tablet(s) PO QID as needed 08/27/2017 09/23/2017 Inactive Belviq XR 20 mg tablet,extended release RxNorm: 1973573 1 Tablet(s) PO daily 08/27/2017 09/23/2017 Inactive cyclobenzaprine 5 mg tablet RxNorm: 131379 1 Tablet(s) PO TID as needed muscle spasms 08/19/2017 08/23/2017 Inactive hydrocodone 7.5 mg-acetaminophen 325 mg tablet RxNorm: 201170 1 Tablet(s) PO QID as needed 08/02/2017 08/26/2017 Inactive hydrocodone 7.5 mg-acetaminophen 325 mg tablet RxNorm: 793833 1 Tablet(s) PO TID as needed 08/02/2017 08/01/2017 Inactive diazepam 10 mg tablet RxNorm: 168372 1 Tablet(s) PO TID as needed anxiety 07/24/2017 02/02/2018 Inactive hydrocodone 7.5 mg-acetaminophen 325 mg tablet RxNorm: 487855 1 Tablet(s) PO TID as needed 07/11/2017 08/01/2017 Inactive Lyrica 100 mg capsule RxNorm: 803418 1 Capsule(s) PO BID as needed 06/24/2017 09/20/2017 Inactive hydrocodone 5 mg-acetaminophen 325 mg tablet RxNorm: 372322 1 Tablet(s) PO TID 06/24/2017 07/30/2017 Inactive prednisone 10 mg tablet RxNorm: 264969 1 Tablet(s) PO daily 06/18/2017 06/17/2017 Inactive 6-5-4-3-2-1 then stop prednisone 10 mg tablet RxNorm: 128901 1 Tablet(s) PO daily 06/18/2017 08/25/2017 Inactive 6-5-4-3-2-1 then stop Bactrim DS 800 mg-160 mg tablet RxNorm: 112403 1 Tablet(s) PO BID 06/11/2017 06/14/2017 Inactive Bactrim DS 800 mg-160 mg tablet RxNorm: 952851 1 Tablet(s) PO BID 06/03/2017 06/10/2017 Inactive mupirocin 2 % topical ointment RxNorm: 493914 1 Application TOP BID 06/03/2017 08/25/2017 Inactive Lyrica 100 mg capsule RxNorm: 493916 1 Capsule(s) PO BID as needed 05/27/2017 06/23/2017 Inactive Keflex 500 mg capsule RxNorm: 337993 1 Capsule(s) PO TID 05/27/2017 06/02/2017 Inactive Lexapro 10 mg tablet RxNorm: 388463 1 Tablet(s) PO daily 05/27/2017 08/25/2017 Inactive hydrocodone 5 mg-acetaminophen 325 mg tablet RxNorm: 872186 1 Tablet(s) PO TID 05/27/2017 06/23/2017 Inactive hydrocodone 7.5 mg-acetaminophen 325 mg tablet RxNorm: 657782 1 Tablet(s) PO TID as needed 05/13/2017 05/25/2017 Inactive hydrocodone 7.5 mg-acetaminophen 325 mg tablet RxNorm: 771455 1 Tablet(s) PO TID as needed 05/13/2017 05/12/2017 Inactive cyclobenzaprine 5 mg tablet RxNorm: 940448 TAKE ONE TABLET BY MOUTH THREE TIMES DAILY NEEDED FOR MUSCLE SPASM 05/01/2017 05/05/2017 Inactive hydrocodone 5 mg-acetaminophen 325 mg tablet RxNorm: 273415 1 Tablet(s) PO TID as needed 04/24/2017 05/12/2017 Inactive cyclobenzaprine 5 mg tablet RxNorm: 231032 1 Tablet(s) PO TID as needed muscle spasms 04/24/2017 04/28/2017 Inactive diazepam 10 mg tablet RxNorm: 998531 1 Tablet(s) PO TID as needed anxiety 02/22/2017 04/19/2017 Inactive norethindrone acetate 1 mg-ethinyl estradiol 20 mcg tablet RxNorm: 3025931 1 Tablet(s) PO daily 12/18/2016 07/15/2017 Inactive EEMT 1.25 mg-2.5 mg tablet RxNorm: 449901 1 Tablet(s) PO daily 12/06/2016 03/05/2017 Inactive EEMT 1.25 mg-2.5 mg tablet RxNorm: 899225 1 Tablet(s) PO daily 12/06/2016 12/05/2016 Inactive Lexapro 10 mg tablet RxNorm: 143040 1 Tablet(s) PO daily 12/06/2016 05/04/2017 Inactive diazepam 10 mg tablet RxNorm: 950256 1 Tablet(s) PO TID 11/09/2016 12/07/2016 Inactive phentermine 37.5 mg tablet RxNorm: 468213 1 Tablet(s) PO daily 10/25/2016 08/23/2017 Inactive EEMT 1.25 mg-2.5 mg tablet RxNorm: 748265 1 Tablet(s) PO daily 10/25/2016 12/05/2016 Inactive phentermine 37.5 mg tablet RxNorm: 588536 1 Tablet(s) PO daily 09/20/2016 10/24/2016 Inactive Lexapro 10 mg tablet RxNorm: 083961 1 Tablet(s) PO daily 07/10/2016 12/05/2016 Inactive Lexapro 10 mg tablet RxNorm: 369080 1 Tablet(s) PO daily 06/12/2016 07/09/2016 Inactive norethindrone acetate 1 mg-ethinyl estradiol 20 mcg tablet RxNorm: 4215946 1 Tablet(s) PO daily 06/12/2016 12/17/2016 Inactive hydrocodone 10 mg-acetaminophen 325 mg tablet RxNorm: 627313 1 Tablet(s) PO TID No Start Date 05/12/2017 Inactive phentermine 37.5 mg tablet RxNorm: 678621 1 Tablet(s) PO daily No Start Date 09/19/2016 Inactive norethindrone acetate 1 mg-ethinyl estradiol 20 mcg tablet RxNorm: 6958405 1 Tablet(s) PO daily No Start Date 06/11/2016 Inactive EEMT 1.25 mg-2.5 mg tablet RxNorm: 307871 1 Tablet(s) PO daily No Start Date 10/24/2016 Inactive Medication Administered No Medication Administered data Immunizations No Immunization data Assessments Condition Codes Effective Dates Overweight ICD-10: E66.3 ICD-9: 278.02 11/27/2018 Menopausal and female climacteric states ICD-10: N95.1 ICD-9: 627.2 10/09/2018 Chronic pain syndrome ICD-10: G89.4 ICD-9: 338.4 10/09/2018 Generalized anxiety disorder ICD-10: F41.1 ICD-9: 300.02 07/18/2018 Major depressive disorder, single episode, moderate ICD-10: F32.1 ICD-9: 296.22 07/18/2018 Cellulitis of right lower limb ICD-10: L03.115 ICD-9: 682.7 06/03/2017 Encounter for gynecological examination (general) (routine) without abnormal findings ICD-10: Z01.419 ICD-9: V72.31 03/27/2017 Other fatigue ICD-10: R53.83 ICD-9: 780.79 08/24/2016 Reason For Visit Reason For Visit Effective Dates Notes medication follow up 10/09/2018 anxiety 07/18/2018 medication [...] Result Effective Dates Constitutional No recent illness 10/09/2018 Constitutional No [...] No Procedures data Vital Signs Date Vital 11/27/2018 Blood Pressure 1: 130/74 Code: 8480-6 Weight: 168 lbs 10/09/2018 Blood Pressure 1: 128/74 Code: 8480-6 BMI: 31.1 Code: 56128-5 Heart Rate 1: 81 bpm Height: 5'2" SpO2: 97% Weight: 170 lbs 08/29/2018 Blood Pressure 1: 120/70 Code: 8480-6 BMI: 31.1 Code: 60501-3 Heart Rate 1: 65 bpm Height: 5'2" Weight: 170 lbs 07/18/2018 Blood Pressure 1: 126/88 Code: 8480-6 Heart Rate 1: 78 bpm Height: SpO2: 97% Weight: 07/16/2018 Blood Pressure 1: 130/78 Code: 8480-6 Heart Rate 1: 84 bpm Weight: 172 lbs 06/18/2018 Blood Pressure 1: 128/80 Code: 8480-6 BMI: 31.1 Code: 80781-0 Heart Rate 1: 80 bpm Height: 5'2" SpO2: 97% Weight: 170 lbs 02/28/2018 Blood Pressure 1: 120/78 Code: 8480-6 BMI: 31.6 Code: 77569-5 Heart Rate 1: 66 bpm Height: 5'2" SpO2: 98% Weight: 173 lbs 12/09/2017 Blood Pressure 1: 116/74 Code: 8480-6 BMI: 31.5 Code: 60449-7 Heart Rate 1: 74 bpm Height: 5'2" SpO2: 95% Weight: 172 lbs 10/21/2017 Blood Pressure 1: 136/82 Code: 8480-6 BMI: 30.4 Code: 92122-6 Heart Rate 1: 79 bpm Height: 5'2" SpO2: 97% Weight: 166 lbs 09/26/2017 Blood Pressure 1: 122/80 Code: 8480-6 BMI: 30.4 Code: 17243-2 Heart Rate 1: 63 bpm Height: 5'2" SpO2: 98% Weight: 166 lbs 08/27/2017 Blood Pressure 1: 132/70 Code: 8480-6 BMI: 30.7 Code: 22923-1 Heart Rate 1: 89 bpm Height: 5'2" SpO2: 98% Weight: 168 lbs 05/27/2017 Blood Pressure 1: 132/72 Code: 8480-6 BMI: 28.9 Code: 40378-8 Heart Rate 1: 72 bpm Height: 5'2" SpO2: 98% Weight: 158 lbs 04/24/2017 Blood Pressure 1: 140/76 Code: 8480-6 BMI: 29.3 Code: 90939-3 Heart Rate 1: 77 bpm Height: 5'2" SpO2: 97% Weight: 160 lbs 03/27/2017 Blood Pressure 1: 128/74 Code: 8480-6 BMI: 29.1 Code: 86294-3 Heart Rate 1: 74 bpm Height: 5'2" SpO2: 98% Temperature: 36.8 (C) / 98.3 (F) Weight: 159 lbs 10/25/2016 Blood Pressure 1: 116/74 Code: 8480-6 BMI: 28.9 Code: 58368-6 Heart Rate 1: 68 bpm Height: 5'2" SpO2: 99% Weight: 158 lbs 09/20/2016 Blood Pressure 1: 116/70 Code: 8480-6 Heart Rate 1: 72 bpm Weight: 150 lbs 08/24/2016 Blood Pressure 1: 118/62 Code: 8480-6 BMI: 27.6 Code: 27078-1 Heart Rate 1: 63 bpm Height: 5'2" SpO2: 99% Weight: 151 lbs 06/12/2016 Blood Pressure 1: 122/74 Code: 8480-6 BMI: 26.9 Code: 77379-7 Heart Rate 1: 52 bpm Height: 5'2" [...] data Encounters Encounter Performer Location Codes Date ([id number]) Miscellaneous no charge Diagnosis: Overweight[ICD10: E66.3] Juju Jama MD, [facility] CPT-4: 55039 11/27/2018 03827 EST. PATIENT, LEVEL III Diagnosis: Chronic pain syndrome[ICD10: G89.4] Diagnosis: Menopausal and female climacteric states[ICD10: N95.1] Veda Jama MD, [facility] CPT-4: 83766 10/09/2018 ([id number]) Miscellaneous no charge Diagnosis: Overweight[ICD10: E66.3] Juju Jama MD, [facility] CPT-4: 48372 08/29/2018 [id number] EST. PATIENT, LEVEL III Diagnosis: Generalized anxiety disorder[ICD10: F41.1] Diagnosis: Major depressive disorder, single episode, moderate[ICD10: F32.1] Veda Jama MD, [facility] CPT-4: 53233 07/18/2018 ([id number]) Miscellaneous no charge Diagnosis: Overweight[ICD10: E66.3] Juju Jama MD, [facility] CPT-4: 09761 07/16/2018 [id number] EST. PATIENT, LEVEL III Diagnosis: Chronic pain syndrome[ICD10: G89.4] Diagnosis: Overweight[ICD10: E66.3] Veda Jama MD, [facility] CPT-4: 84026 06/18/2018 55901 EST. PATIENT, LEVEL IV Diagnosis: Chronic pain syndrome[ICD10: G89.4] Diagnosis: Overweight[ICD10: E66.3] Veda Jama MD, [facility] CPT-4: 96521 02/28/2018 [id number] EST. PATIENT, LEVEL III Diagnosis: Chronic pain syndrome[ICD10: G89.4] Diagnosis: Overweight[ICD10: E66.3] Veda Jama MD [facility] CPT-4: 24046 12/09/2017 23454 EST. PATIENT, LEVEL III Diagnosis: Chronic pain syndrome[ICD10: G89.4] Diagnosis: Overweight[ICD10: E66.3] Veda Jama MD, [facility] CPT-4: 58127 10/21/2017 ([id number]) Miscellaneous no charge Diagnosis: Overweight[ICD10: E66.3] Juju Jama MD, [facility] CPT-4: 03356 09/26/2017 [id number] EST. PATIENT, LEVEL III Diagnosis: Chronic pain syndrome[ICD10: G89.4] Diagnosis: Overweight[ICD10: E66.3] Veda Jama MD, [facility] CPT-4: 31464 08/27/2017 13624 EST. PATIENT, LEVEL III Diagnosis: Chronic pain syndrome[ICD10: G89.4] Diagnosis: Generalized anxiety disorder[ICD10: F41.1] Diagnosis: Major depressive disorder, single episode, moderate[ICD10: F32.1] Diagnosis: Cellulitis of right lower limb[ICD10: L03.115] Veda Jama MD, [facility] CPT-4: 35756 05/27/2017 ([id number]) 92349 EST. PATIENT, LEVEL IV Diagnosis: Generalized anxiety disorder[ICD10: F41.1] Diagnosis: Major depressive disorder, single episode, moderate[ICD10: F32.1] Diagnosis: Menopausal and female climacteric states[ICD10: N95.1] Diagnosis: Chronic pain syndrome[ICD10: G89.4] Veda Jama MD, [facility] CPT- 4: 94320 04/24/2017 ([id number]) PREV VISIT EST AGE 18-39 Diagnosis: Encounter for gynecological examination (general) (routine) without abnormal findings[ICD10: Z01.419] Veda Jama MD, [facility] CPT-4: 60353 03/27/2017 ([id number]) 57511 EST. PATIENT, LEVEL III Diagnosis: Overweight[ICD10: E66.3] [facility] CPT-4: 98958 10/25/2016 ([id number]) Miscellaneous no charge Diagnosis: Overweight[ICD10: E66.3] [facility] CPT-4: 08652 09/20/2016 32427 EST. PATIENT, LEVEL IV Diagnosis: Other fatigue[ICD10: R53.83] Diagnosis: Overweight[ICD10: E66.3] Diagnosis: Generalized anxiety disorder[ICD10: F41.1] Veda Jama MD, [facility] CPT-4: 84543 08/24/2016 ([id number]) OFFICE VISIT, NEW - LEVEL 4 Diagnosis: Generalized anxiety disorder[ICD10: F41.1] Diagnosis: Major depressive disorder, single episode, moderate[ICD10: F32.1] Veda Jama MD, [facility] CPT-4: 93025 06/12/2016 Plan of Care Planned Activity Notes Codes Status Date Appointment: Nurse Visit 11/27/2018 Patient Education: Patient [...] or concerns. 10/09/2018 Appointment: Veda Duenas WPtel: [address] [place], [place] [id number] (15 min) Moderate 10/09/2018 Patient Education: Patient [...] this patient. 07/18/2018 Appointment: Veda Duenas WPtel: [facility] (15 min) Moderate 07/18/2018 Patient Education: Patient [...] weight check. 06/18/2018 Appointment: Veda Duenas WPtel: [facility] (15 min) Moderate 06/18/2018 Patient Education: Patient [...] weight check. 02/28/2018 Appointment[facility] [place] ([facility] Complex 02/28/2018 Patient Education: Patient Medication Summary Completed 02/28/2018 Patient Education: Obesity Completed 02/28/2018 Appointment: Veda Duenas WPtel: [facility] [place] (15 min) Moderate 02/27/2018 Visit Plan: [...] for weight check. 12/09/2017 Appointment: [phone] [facility] (15 min) Moderate 12/09/2017 Patient Education: Patient [...] for weight check. 10/21/2017 Appointment: [facility]eda [facility]astel[facility] (15 min) Moderate 10/21/2017 Patient Education: Patient Medication Summary Completed 10/21/2017 Patient Education: Obesity Completed 10/21/2017 Appointment: Nurse Visit 09/26/2017 Patient Education: Patient Medication Summary Completed 09/26/2017 Appointment: [facility]eda Du[facility]astel[facility] ([facility]) Complex 08/30/2017 Visit Plan: Chronic [...] discharge. 05/27/2017 Appointment: Veda Duenas WPtel: [phone] [facility] (30 min) Complex 05/27/2017 Patient Education: Patient [...] RX. 04/24/2017 Appointment: Veda Duenas WPtel: [phone] [facility] (30 min) Complex 04/24/2017 Patient Education: Patient [...] pharmacy. 03/27/2017 Appointment: [phone] [facility] [facility] 03/27/2017 Patient Education: Patient Medication Summary Completed 03/27/2017 Care Plan: BMI Above normal followup SELF-MGMT EDUC & TRAIN 1 PT Pending 11/07/2016 Visit Plan: Obesity - chronic issue with this patient. The pt has been counseled about diet changes, calorie restriction, and need to exercise. Pt will RTC in one month for weight check. 10/25/2016 Appointment: [facility] [phone] [facility] (15 min) Moderate 10/25/2016 Patient Education: Patient [...] one month for weight check. 08/24/2016 Appointment: Mcgowan Radha WPtel: [address] [place], [place] [phone] [place] [address] (30 min) Complex 08/24/2016 Appointment: Juan M Radha WPtel: [facility] [place] [address] (30 min) Complex 08/24/2016 Appointment: Juan M Radha WPtel: [facility] [place] [address] (30 min) Complex 08/24/2016 Patient Education: Patient [...] this patient. 06/12/2016 Appointment: Radha Mcgowan WPtel: [address] [place], [place] [phone] [place] [address] New Patient 06/12/2016 Patient Education: Patient Medication [...]
[2019-07-01] MEDS ORDERED: fentaNYL INJECTION 100 MCG/2 ML AMP ONE ×2 (06:38→09:35)
[2019-07-01] MEDS ORDERED: proPOfol 200 MG/20 ML (DIPRIVAN) VIAL IV ONE (06:38)
[2019-07-01] MEDS ORDERED: SEVOFLURANE (ULTANE) 15 ML INHAL SOLN ONE ×3 (06:38→11:01)
[2019-07-01] MEDS ORDERED: DEXAMETHASONE 10 MG/ML (DECADRON) 1 ML VIAL ONE (06:38)
[2019-07-01] MEDS ORDERED: LIDOCAINE PF 2% 5 ML (XYLOCAINE) VIAL ONE (06:38)
[2019-07-01] MEDS ORDERED: ONDANSETRON 4 MG/2 ML (SDV) Z0FRAN ONE (06:38)
[2019-07-01] MEDS ORDERED: MIDAZOLAM 2 MG/2 ML (VERSED) VIAL ONE (06:38)
--- OUTSIDE RECORDS SUMMARY | 2019-07-01 06:38 | XMS REPORT | CCD ---
Author Author Veda Duenas Organization Juju Jama MD, [facility] Address [address] [place] [address] Phone Care Team Providers Care Marketing Analyst Name Role Phone PP Unavailable CCM Unavailable Summary Purpose Interface Exchange Insurance Providers Payer name Policy type / Coverage type Covered green party ID Effective Begin Date Effective End Date Blue Cross [facility] Blue Cross/[id number] Unknown Family history Father Diagnosis Age At Onset Diabetes Unknown Hyperlipidemia Unknown Hypertension Unknown Heart Attack Unknown Social History Social History Element Codes Description Effective Dates Marital status Unknown CJ 06/12/2016 Number of children Unknown 3 06/12/[address]: 934020450 Never smoker 06/12/[address]: 130486601 Never drinks alcohol 06/12/2016 Allergies, Adverse Reactions, [...] Fill Instructions phentermine 37.5 mg tablet RxNorm: 344390 1 Tablet(s) PO daily 11/27/2018 No Stop Date Active Lexapro 10 mg tablet RxNorm: 236564 TAKE 1 TABLET BY MOUTH ONCE DAILY 11/26/2018 No Stop Date Active cyclobenzaprine 5 mg tablet RxNorm: 066732 TAKE ONE TABLET BY MOUTH THREE TIMES DAILY NEEDED FOR MUSCLE SPASM 11/12/2018 No Stop Date Active hydrocodone 5 mg-acetaminophen 325 mg tablet RxNorm: 284350 1-1.5 Tablet(s) PO QID as needed 11/06/2018 12/05/2018 Active Lyrica 100 mg capsule RxNorm: 949251 1 Capsule(s) PO BID as needed 10/31/2018 01/28/2019 Active pravastatin 20 mg tablet RxNorm: 128672 1 Tablet(s) PO QPM 10/28/2018 02/24/2019 Active pravastatin 20 mg tablet RxNorm: 936180 1 Tablet(s) PO QPM 10/28/2018 10/27/2018 Inactive EEMT 1.25 mg-2.5 mg tablet RxNorm: 618881 1 Tablet(s) PO daily 10/09/2018 01/06/2019 Active norethindrone acetate 1 mg-ethinyl estradiol 20 mcg tablet RxNorm: 7679713 1 Tablet(s) PO daily 10/09/2018 10/03/2019 Active hydrocodone 5 mg-acetaminophen 325 mg tablet RxNorm: 205759 1-1.5 Tablet(s) PO QID as needed 10/09/2018 11/05/2018 Inactive hydrocodone 5 mg-acetaminophen 325 mg tablet RxNorm: 431738 1-1.5 Tablet(s) PO QID as needed 09/11/2018 10/08/2018 Inactive phentermine 37.5 mg tablet RxNorm: 824743 1 Tablet(s) PO daily 08/29/2018 11/26/2018 Inactive cyclobenzaprine 5 mg tablet RxNorm: 085057 TAKE ONE TABLET BY MOUTH THREE TIMES DAILY NEEDED FOR MUSCLE SPASM 08/27/2018 11/11/2018 Inactive hydrocodone 5 mg-acetaminophen 325 mg tablet RxNorm: 248752 1-1.5 Tablet(s) PO QID as needed 08/14/2018 09/10/2018 Inactive Lexapro 10 mg tablet RxNorm: 372241 1 Tablet(s) PO daily 07/18/2018 08/16/2018 Inactive diazepam 10 mg tablet RxNorm: 486594 1 Tablet(s) PO TID as needed anxiety 07/11/2018 07/14/2018 Inactive Zorvolex 35 mg capsule RxNorm: 0235387 1 Capsule(s) PO TID 06/18/2018 No Stop Date Active hydrocodone 5 mg-acetaminophen 325 mg tablet RxNorm: 703383 1-1.5 Tablet(s) PO QID as needed 06/18/2018 07/17/2018 Inactive cyclobenzaprine 5 mg tablet RxNorm: 439041 TAKE ONE TABLET BY MOUTH THREE TIMES DAILY NEEDED FOR MUSCLE SPASM 06/04/2018 08/26/2018 Inactive hydrocodone 5 mg-acetaminophen 325 mg tablet RxNorm: 982062 1-1.5 Tablet(s) PO QID as needed 05/26/2018 06/17/2018 Inactive cyclobenzaprine 5 mg tablet RxNorm: 774321 TAKE ONE TABLET BY MOUTH THREE TIMES DAILY NEEDED FOR MUSCLE SPASM 05/07/2018 06/03/2018 Inactive ibuprofen 800 mg tablet RxNorm: 044476 TAKE ONE TABLET BY MOUTH THREE TIMES DAILY NEEDED 04/28/2018 No Stop Date Active hydrocodone 5 mg-acetaminophen 325 mg tablet RxNorm: 300196 1-1.5 Tablet(s) PO QID as needed 04/28/2018 05/25/2018 Inactive diazepam 10 mg tablet RxNorm: 586357 1 Tablet(s) PO TID as needed anxiety 04/22/2018 06/19/2018 Inactive hydrocodone 5 mg-acetaminophen 325 mg tablet RxNorm: 020650 1-1.5 Tablet(s) PO QID as needed 03/25/2018 04/23/2018 Inactive cyclobenzaprine 5 mg tablet RxNorm: 110718 TAKE ONE TABLET BY MOUTH THREE TIMES DAILY NEEDED FOR MUSCLE SPASM 03/17/2018 05/06/2018 Inactive hydrocodone 5 mg-acetaminophen 325 mg tablet RxNorm: 082550 1-1.5 Tablet(s) PO QID as needed 03/02/2018 03/24/2018 Inactive phentermine 37.5 mg tablet RxNorm: 415516 1 Tablet(s) PO daily 03/02/2018 08/28/2018 Inactive hydrocodone 5 mg-acetaminophen 325 mg tablet RxNorm: 800872 1-1.5 Tablet(s) PO QID as needed 02/03/2018 03/01/2018 Inactive diazepam 10 mg tablet RxNorm: 483864 1 Tablet(s) PO TID as needed anxiety 01/01/2018 02/28/2018 Inactive hydrocodone 5 mg-acetaminophen 325 mg tablet RxNorm: 219725 1-1.5 Tablet(s) PO QID as needed 12/09/2017 01/07/2018 Inactive ibuprofen 800 mg tablet RxNorm: 308126 1 Tablet(s) PO TID as needed 12/09/2017 01/07/2018 Inactive Lyrica 100 mg capsule RxNorm: 926987 1 Capsule(s) PO BID as needed 12/09/2017 03/07/2018 Inactive cyclobenzaprine 5 mg tablet RxNorm: 518285 TAKE ONE TABLET BY MOUTH THREE TIMES DAILY NEEDED FOR MUSCLE SPASM 12/03/2017 03/16/2018 Inactive hydrocodone 5 mg-acetaminophen 325 mg tablet RxNorm: 594606 1-1.5 Tablet(s) PO QID as needed 10/21/2017 11/19/2017 Inactive hydrocodone 7.5 mg-acetaminophen 325 mg tablet RxNorm: 586138 1 Tablet(s) PO QID as needed 09/26/2017 10/20/2017 Inactive phentermine 37.5 mg tablet RxNorm: 590000 1 Tablet(s) PO daily 09/26/2017 10/01/2017 Inactive Lyrica 100 mg capsule RxNorm: 365530 1 Capsule(s) PO BID as needed 09/12/2017 12/08/2017 Inactive hydrocodone 7.5 mg-acetaminophen 325 mg tablet RxNorm: 896566 1 Tablet(s) PO QID as needed 08/27/2017 09/23/2017 Inactive Belviq XR 20 mg tablet,extended release RxNorm: 6224460 1 Tablet(s) PO daily 08/27/2017 09/23/2017 Inactive cyclobenzaprine 5 mg tablet RxNorm: 486586 1 Tablet(s) PO TID as needed muscle spasms 08/19/2017 08/23/2017 Inactive hydrocodone 7.5 mg-acetaminophen 325 mg tablet RxNorm: 763333 1 Tablet(s) PO QID as needed 08/02/2017 08/26/2017 Inactive hydrocodone 7.5 mg-acetaminophen 325 mg tablet RxNorm: 947542 1 Tablet(s) PO TID as needed 08/02/2017 08/01/2017 Inactive diazepam 10 mg tablet RxNorm: 699581 1 Tablet(s) PO TID as needed anxiety 07/24/2017 02/02/2018 Inactive hydrocodone 7.5 mg-acetaminophen 325 mg tablet RxNorm: 795871 1 Tablet(s) PO TID as needed 07/11/2017 08/01/2017 Inactive Lyrica 100 mg capsule RxNorm: 435976 1 Capsule(s) PO BID as needed 06/24/2017 09/20/2017 Inactive hydrocodone 5 mg-acetaminophen 325 mg tablet RxNorm: 524991 1 Tablet(s) PO TID 06/24/2017 07/30/2017 Inactive prednisone 10 mg tablet RxNorm: 780694 1 Tablet(s) PO daily 06/18/2017 06/17/2017 Inactive 6-5-4-3-2-1 then stop prednisone 10 mg tablet RxNorm: 364320 1 Tablet(s) PO daily 06/18/2017 08/25/2017 Inactive 6-5-4-3-2-1 then stop Bactrim DS 800 mg-160 mg tablet RxNorm: 729017 1 Tablet(s) PO BID 06/11/2017 06/14/2017 Inactive Bactrim DS 800 mg-160 mg tablet RxNorm: 399182 1 Tablet(s) PO BID 06/03/2017 06/10/2017 Inactive mupirocin 2 % topical ointment RxNorm: 920848 1 Application TOP BID 06/03/2017 08/25/2017 Inactive Lyrica 100 mg capsule RxNorm: 420281 1 Capsule(s) PO BID as needed 05/27/2017 06/23/2017 Inactive Keflex 500 mg capsule RxNorm: 427857 1 Capsule(s) PO TID 05/27/2017 06/02/2017 Inactive Lexapro 10 mg tablet RxNorm: 611855 1 Tablet(s) PO daily 05/27/2017 08/25/2017 Inactive hydrocodone 5 mg-acetaminophen 325 mg tablet RxNorm: 604274 1 Tablet(s) PO TID 05/27/2017 06/23/2017 Inactive hydrocodone 7.5 mg-acetaminophen 325 mg tablet RxNorm: 601771 1 Tablet(s) PO TID as needed 05/13/2017 05/25/2017 Inactive hydrocodone 7.5 mg-acetaminophen 325 mg tablet RxNorm: 842598 1 Tablet(s) PO TID as needed 05/13/2017 05/12/2017 Inactive cyclobenzaprine 5 mg tablet RxNorm: 718034 TAKE ONE TABLET BY MOUTH THREE TIMES DAILY NEEDED FOR MUSCLE SPASM 05/01/2017 05/05/2017 Inactive hydrocodone 5 mg-acetaminophen 325 mg tablet RxNorm: 444490 1 Tablet(s) PO TID as needed 04/24/2017 05/12/2017 Inactive cyclobenzaprine 5 mg tablet RxNorm: 953906 1 Tablet(s) PO TID as needed muscle spasms 04/24/2017 04/28/2017 Inactive diazepam 10 mg tablet RxNorm: 828056 1 Tablet(s) PO TID as needed anxiety 02/22/2017 04/19/2017 Inactive norethindrone acetate 1 mg-ethinyl estradiol 20 mcg tablet RxNorm: 7562685 1 Tablet(s) PO daily 12/18/2016 07/15/2017 Inactive EEMT 1.25 mg-2.5 mg tablet RxNorm: 534477 1 Tablet(s) PO daily 12/06/2016 03/05/2017 Inactive EEMT 1.25 mg-2.5 mg tablet RxNorm: 269931 1 Tablet(s) PO daily 12/06/2016 12/05/2016 Inactive Lexapro 10 mg tablet RxNorm: 764998 1 Tablet(s) PO daily 12/06/2016 05/04/2017 Inactive diazepam 10 mg tablet RxNorm: 531960 1 Tablet(s) PO TID 11/09/2016 12/07/2016 Inactive phentermine 37.5 mg tablet RxNorm: 270168 1 Tablet(s) PO daily 10/25/2016 08/23/2017 Inactive EEMT 1.25 mg-2.5 mg tablet RxNorm: 926154 1 Tablet(s) PO daily 10/25/2016 12/05/2016 Inactive phentermine 37.5 mg tablet RxNorm: 027866 1 Tablet(s) PO daily 09/20/2016 10/24/2016 Inactive Lexapro 10 mg tablet RxNorm: 187331 1 Tablet(s) PO daily 07/10/2016 12/05/2016 Inactive Lexapro 10 mg tablet RxNorm: 533525 1 Tablet(s) PO daily 06/12/2016 07/09/2016 Inactive norethindrone acetate 1 mg-ethinyl estradiol 20 mcg tablet RxNorm: 3511458 1 Tablet(s) PO daily 06/12/2016 12/17/2016 Inactive hydrocodone 10 mg-acetaminophen 325 mg tablet RxNorm: 852225 1 Tablet(s) PO TID No Start Date 05/12/2017 Inactive phentermine 37.5 mg tablet RxNorm: 561062 1 Tablet(s) PO daily No Start Date 09/19/2016 Inactive norethindrone acetate 1 mg-ethinyl estradiol 20 mcg tablet RxNorm: 0539450 1 Tablet(s) PO daily No Start Date 06/11/2016 Inactive EEMT 1.25 mg-2.5 mg tablet RxNorm: 418530 1 Tablet(s) PO daily No Start Date [...] 1: 128/74 Code: 8480-6 BMI: 31.1 Code: 28962-6 Heart Rate 1: 81 bpm Height: 5'2" SpO2: 97% Weight: 170 lbs 08/29/2018 Blood Pressure 1: 120/70 Code: 8480-6 BMI: 31.1 Code: 38490-6 Heart Rate 1: 65 bpm Height: 5'2" Weight: 170 lbs 07/18/2018 Blood Pressure 1: 126/88 Code: 8480-6 Heart Rate 1: 78 bpm Height: SpO2: 97% Weight: 07/16/2018 Blood Pressure 1: 130/78 Code: 8480-6 Heart Rate 1: 84 bpm Weight: 172 lbs 06/18/2018 Blood Pressure 1: 128/80 Code: 8480-6 BMI: 31.1 Code: 24318-9 Heart Rate 1: 80 bpm Height: 5'2" SpO2: 97% Weight: 170 lbs 02/28/2018 Blood Pressure 1: 120/78 Code: 8480-6 BMI: 31.6 Code: 23035-5 Heart Rate 1: 66 bpm Height: 5'2" SpO2: 98% Weight: 173 lbs 12/09/2017 Blood Pressure 1: 116/74 Code: 8480-6 BMI: 31.5 Code: 65776-1 Heart Rate 1: 74 bpm Height: 5'2" SpO2: 95% Weight: 172 lbs 10/21/2017 Blood Pressure 1: 136/82 Code: 8480-6 BMI: 30.4 Code: 93202-7 Heart Rate 1: 79 bpm Height: 5'2" SpO2: 97% Weight: 166 lbs 09/26/2017 Blood Pressure 1: 122/80 Code: 8480-6 BMI: 30.4 Code: 37701-1 Heart Rate 1: 63 bpm Height: 5'2" SpO2: 98% Weight: 166 lbs 08/27/2017 Blood Pressure 1: 132/70 Code: 8480-6 BMI: 30.7 Code: 02921-9 Heart Rate 1: 89 bpm Height: 5'2" SpO2: 98% Weight: 168 lbs 05/27/2017 Blood Pressure 1: 132/72 Code: 8480-6 BMI: 28.9 Code: 12104-2 Heart Rate 1: 72 bpm Height: 5'2" SpO2: 98% Weight: 158 lbs 04/24/2017 Blood Pressure 1: 140/76 Code: 8480-6 BMI: 29.3 Code: 75075-8 Heart Rate 1: 77 bpm Height: 5'2" SpO2: 97% Weight: 160 lbs 03/27/2017 Blood Pressure 1: 128/74 Code: 8480-6 BMI: 29.1 Code: 04391-8 Heart Rate 1: 74 bpm Height: 5'2" SpO2: 98% Temperature: 36.8 (C) / 98.3 (F) Weight: 159 lbs 10/25/2016 Blood Pressure 1: 116/74 Code: 8480-6 BMI: 28.9 Code: 15611-0 Heart Rate 1: 68 bpm Height: 5'2" SpO2: 99% Weight: 158 lbs 09/20/2016 Blood Pressure 1: 116/70 Code: 8480-6 Heart Rate 1: 72 bpm Weight: 150 lbs 08/24/2016 Blood Pressure 1: 118/62 Code: 8480-6 BMI: 27.6 Code: 50414-7 Heart Rate 1: 63 bpm Height: 5'2" SpO2: 99% Weight: 151 lbs 06/12/2016 Blood Pressure 1: 122/74 Code: 8480-6 BMI: 26.9 Code: 65250-8 Heart Rate 1: 52 bpm Height: 5'2" [...] female climacteric states[ICD10: N95.1] Veda Jama MD, [facility] CPT-4: 83704 10/09/2018 ([id number]) Miscellaneous no charge Diagnosis: Overweight[ICD10: E66.3] Juju Jama MD, [facility] CPT-4: 03157 08/29/2018 [id number] EST. PATIENT, LEVEL III Diagnosis: Generalized anxiety disorder[ICD10: F41.1] Diagnosis: Major depressive disorder, single episode, moderate[ICD10: F32.1] Veda Jama MD, [facility] CPT-4: 47700 07/18/2018 ([id number]) Miscellaneous no charge Diagnosis: Overweight[ICD10: E66.3] Juju Jama MD, [facility] CPT-4: 33132 07/16/2018 78605 EST. PATIENT, LEVEL III Diagnosis: Chronic pain syndrome[ICD10: G89.4] Diagnosis: Overweight[ICD10: E66.3] Veda Jama MD, [facility] CPT-4: 67298 06/18/2018 70002 EST. PATIENT, LEVEL IV Diagnosis: Chronic pain syndrome[ICD10: G89.4] Diagnosis: Overweight[ICD10: E66.3] Veda Jama MD, [facility] CPT-4: 58408 02/28/2018 41985 EST. PATIENT, LEVEL III Diagnosis: Chronic pain syndrome[ICD10: G89.4] Diagnosis: Overweight[ICD10: E66.3] Veda Jama MD, [facility] CPT-4: 83058 12/09/2017 42837 EST. PATIENT, LEVEL III Diagnosis: Chronic pain syndrome[ICD10: G89.4] Diagnosis: Overweight[ICD10: E66.3] [facility] CPT-4: 14430 10/21/2017 ([id number]) Miscellaneous no charge Diagnosis: Overweight[ICD10: E66.3] [facility] CPT-4: 64733 09/26/2017 60393 EST. PATIENT, LEVEL III Diagnosis: Chronic pain syndrome[ICD10: G89.4] Diagnosis: Overweight[ICD10: E66.3] Veda Jama MD, [facility] CPT-4: 76898 08/27/2017 71745 EST. PATIENT, LEVEL III Diagnosis: Chronic pain syndrome[ICD10: G89.4] Diagnosis: Generalized anxiety disorder[ICD10: F41.1] Diagnosis: Major depressive disorder, single episode, moderate[ICD10: F32.1] Diagnosis: Cellulitis of right lower limb[ICD10: L03.115] Veda Jama MD, [facility] CPT-4: 51963 05/27/2017 ([id number]) 08477 EST. PATIENT, LEVEL IV Diagnosis: Generalized anxiety disorder[ICD10: F41.1] Diagnosis: Major depressive disorder, single episode, moderate[ICD10: F32.1] Diagnosis: Menopausal and female climacteric states[ICD10: N95.1] Diagnosis: Chronic pain syndrome[ICD10: G89.4] [facility] CPT- 4: 95879 04/24/2017 ([id number]) PREV VISIT EST AGE 18-39 Diagnosis: Encounter for gynecological examination (general) (routine) without abnormal findings[ICD10: Z01.419] [facility] CPT-4: 16362 03/27/2017 ([id number]) 18314 EST. PATIENT, LEVEL III Diagnosis: Overweight[ICD10: E66.3] [facility] CPT-4: 10824 10/25/2016 ([id number]) Miscellaneous no charge Diagnosis: Overweight[ICD10: E66.3] [facility] CPT-4: 30657 09/20/2016 10030 EST. PATIENT, LEVEL IV Diagnosis: Other fatigue[ICD10: R53.83] Diagnosis: Overweight[ICD10: E66.3] Diagnosis: Generalized anxiety disorder[ICD10: F41.1] [facility] CPT-4: 96495 08/24/2016 ([id number]) OFFICE VISIT, NEW - LEVEL 4 Diagnosis: Generalized anxiety disorder[ICD10: F41.1] Diagnosis: Major depressive disorder, single episode, moderate[ICD10: F32.1] Veda Jama MD, [facility] CPT-4: 89739 06/12/2016 Plan of Care Planned Activity Notes Codes Status Date Patient Education: Patient Medication Summary Completed 11/27/2018 [...] or concerns. 10/09/2018 Appointment: Veda Duenas WPtel: [address] [place], [place] [phone] (15 min) Moderate 10/09/2018 Patient Education: Patient [...] appropriately prescribed for this patient. 07/18/2018 Appointment: Vdea Duenas WPtel: [place] (15 min) Moderate 07/18/2018 Patient Education: Patient [...] weight check. 06/18/2018 Appointment: Veda Duenas WPtel: [place] [place] (15 min) Moderate 06/18/2018 Patient Education: Patient [...] weight check. 02/28/2018 Appointment: Veda Duenas WPtel: [place] [place] (30 min) Complex 02/28/2018 Patient Education: Patient Medication Summary Completed 02/28/2018 Patient Education: Obesity Completed 02/28/2018 Appointment: Veda Duenas WPtel: [place] (15 min) Moderate 02/27/2018 Visit Plan: Chronic [...] check. 12/09/2017 [phone] [place] ([place] min) Moderate 12/09/2017 Patient Education: Patient [...] weight check. 10/21/2017 Appointment: [phone] [place] (15 min) Moderate 10/21/2017 Patient Education: Patient Medication Summary Completed 10/21/2017 Patient Education: Obesity Completed 10/21/2017 Appointment: Nurse Visit 09/26/2017 Patient Education: Patient Medication Summary Completed 09/26/2017 Appointment: [facility]eda Duenas [phone] [place] (30 min) Complex 08/30/2017 Visit Plan: Chronic [...] discharge. 05/27/2017 Appointment: Veda Duenas WPtel: [phone] [facility] (30 min) Complex 05/27/2017 Patient Education: [...] RX. 04/24/2017 Appointment: Veda Duenas WPtel: [address] [facility] (30 min) Complex 04/24/2017 Patient Education: Patient [...] per pharmacy. 03/27/2017 Appointment: Veda Duenas WPtel: [address] [place], [place] [phone] 03/27/2017 Patient Education: Patient Medication Summary Completed 03/27/2017 Care Plan: BMI Above normal followup SELF-MGMT EDUC & TRAIN 1 PT Pending 11/07/2016 Visit Plan: Obesity - chronic issue with this patient. The pt has been counseled about diet changes, calorie restriction, and need to exercise. Pt will RTC in one month for weight check. 10/25/2016 Appointment: Veda Duenas WPtel: [address] [place], [place] [phone] (15 min) Moderate 10/25/2016 Patient Education: [...] weight check. 08/24/2016 Appointment: Radha Mcgowan WPtel: [place] [place] (30 min) Complex 08/24/2016 Appointment: Radha Mcgowan WPtel: [address] [place] [address] (30 min) Complex 08/24/2016 Appointment: Radha Mcgowan WPtel: [address] [place] [address] (30 min) Complex 08/24/2016 Patient Education: Patient [...] this patient. 06/12/2016 Appointment: Radha Mcgowan WPtel: [address] [place] [address] New Patient 06/12/2016 Patient Education: Patient Medication [...]
--- OUTSIDE RECORDS SUMMARY | 2019-07-01 06:39 | XMS REPORT | CCD ---
Author Author Veda Duenas Organization [facility] Address [address] [place] [address] Phone Care Team Providers Care Construction Site Manager Name Role Phone PP Unavailable CCM Unavailable Summary Purpose Interface Exchange Insurance Providers Payer name Policy type / Coverage type Covered libertarian ID Effective Begin Date Effective End Date Blue Cross [facility] Cross/[facility] access [id number] Unknown Family history Father Diagnosis Age At Onset Diabetes Unknown Hyperlipidemia Unknown Hypertension Unknown Heart Attack Unknown Social History Social History Element Codes Description Effective Dates Marital status Unknown CJ 06/12/2016 Number of children Unknown 3 06/12/[address]: 103645286 Never smoker 06/12/[address]: 867003965 Never drinks alcohol 06/12/2016 Allergies, Adverse Reactions, [...] Fill Instructions phentermine 37.5 mg tablet RxNorm: 577526 1 Tablet(s) PO daily 11/27/2018 No Stop Date Active Lexapro 10 mg tablet RxNorm: 834743 TAKE 1 TABLET BY MOUTH ONCE DAILY 11/26/2018 No Stop Date Active cyclobenzaprine 5 mg tablet RxNorm: 412010 TAKE ONE TABLET BY MOUTH THREE TIMES DAILY NEEDED FOR MUSCLE SPASM 11/12/2018 No Stop Date Active hydrocodone 5 mg-acetaminophen 325 mg tablet RxNorm: 409920 1-1.5 Tablet(s) PO QID as needed 11/06/2018 12/05/2018 Active Lyrica 100 mg capsule RxNorm: 876371 1 Capsule(s) PO BID as needed 10/31/2018 01/28/2019 Active pravastatin 20 mg tablet RxNorm: 277775 1 Tablet(s) PO QPM 10/28/2018 02/24/2019 Active pravastatin 20 mg tablet RxNorm: 833111 1 Tablet(s) PO QPM 10/28/2018 10/27/2018 Inactive EEMT 1.25 mg-2.5 mg tablet RxNorm: 972336 1 Tablet(s) PO daily 10/09/2018 01/06/2019 Active norethindrone acetate 1 mg-ethinyl estradiol 20 mcg tablet RxNorm: 0463430 1 Tablet(s) PO daily 10/09/2018 10/03/2019 Active hydrocodone 5 mg-acetaminophen 325 mg tablet RxNorm: 362138 1-1.5 Tablet(s) PO QID as needed 10/09/2018 11/05/2018 Inactive hydrocodone 5 mg-acetaminophen 325 mg tablet RxNorm: 007542 1-1.5 Tablet(s) PO QID as needed 09/11/2018 10/08/2018 Inactive phentermine 37.5 mg tablet RxNorm: 475652 1 Tablet(s) PO daily 08/29/2018 11/26/2018 Inactive cyclobenzaprine 5 mg tablet RxNorm: 327386 TAKE ONE TABLET BY MOUTH THREE TIMES DAILY NEEDED FOR MUSCLE SPASM 08/27/2018 11/11/2018 Inactive hydrocodone 5 mg-acetaminophen 325 mg tablet RxNorm: 726150 1-1.5 Tablet(s) PO QID as needed 08/14/2018 09/10/2018 Inactive Lexapro 10 mg tablet RxNorm: 091415 1 Tablet(s) PO daily 07/18/2018 08/16/2018 Inactive diazepam 10 mg tablet RxNorm: 546763 1 Tablet(s) PO TID as needed anxiety 07/11/2018 07/14/2018 Inactive Zorvolex 35 mg capsule RxNorm: 9521449 1 Capsule(s) PO TID 06/18/2018 No Stop Date Active hydrocodone 5 mg-acetaminophen 325 mg tablet RxNorm: 952317 1-1.5 Tablet(s) PO QID as needed 06/18/2018 07/17/2018 Inactive cyclobenzaprine 5 mg tablet RxNorm: 070938 TAKE ONE TABLET BY MOUTH THREE TIMES DAILY NEEDED FOR MUSCLE SPASM 06/04/2018 08/26/2018 Inactive hydrocodone 5 mg-acetaminophen 325 mg tablet RxNorm: 606002 1-1.5 Tablet(s) PO QID as needed 05/26/2018 06/17/2018 Inactive cyclobenzaprine 5 mg tablet RxNorm: 656041 TAKE ONE TABLET BY MOUTH THREE TIMES DAILY NEEDED FOR MUSCLE SPASM 05/07/2018 06/03/2018 Inactive ibuprofen 800 mg tablet RxNorm: 707315 TAKE ONE TABLET BY MOUTH THREE TIMES DAILY NEEDED 04/28/2018 No Stop Date Active hydrocodone 5 mg-acetaminophen 325 mg tablet RxNorm: 276742 1-1.5 Tablet(s) PO QID as needed 04/28/2018 05/25/2018 Inactive diazepam 10 mg tablet RxNorm: 706464 1 Tablet(s) PO TID as needed anxiety 04/22/2018 06/19/2018 Inactive hydrocodone 5 mg-acetaminophen 325 mg tablet RxNorm: 206040 1-1.5 Tablet(s) PO QID as needed 03/25/2018 04/23/2018 Inactive cyclobenzaprine 5 mg tablet RxNorm: 913196 TAKE ONE TABLET BY MOUTH THREE TIMES DAILY NEEDED FOR MUSCLE SPASM 03/17/2018 05/06/2018 Inactive hydrocodone 5 mg-acetaminophen 325 mg tablet RxNorm: 962967 1-1.5 Tablet(s) PO QID as needed 03/02/2018 03/24/2018 Inactive phentermine 37.5 mg tablet RxNorm: 051126 1 Tablet(s) PO daily 03/02/2018 08/28/2018 Inactive hydrocodone 5 mg-acetaminophen 325 mg tablet RxNorm: 493832 1-1.5 Tablet(s) PO QID as needed 02/03/2018 03/01/2018 Inactive diazepam 10 mg tablet RxNorm: 856717 1 Tablet(s) PO TID as needed anxiety 01/01/2018 02/28/2018 Inactive hydrocodone 5 mg-acetaminophen 325 mg tablet RxNorm: 499834 1-1.5 Tablet(s) PO QID as needed 12/09/2017 01/07/2018 Inactive ibuprofen 800 mg tablet RxNorm: 228526 1 Tablet(s) PO TID as needed 12/09/2017 01/07/2018 Inactive Lyrica 100 mg capsule RxNorm: 287591 1 Capsule(s) PO BID as needed 12/09/2017 03/07/2018 Inactive cyclobenzaprine 5 mg tablet RxNorm: 432703 TAKE ONE TABLET BY MOUTH THREE TIMES DAILY NEEDED FOR MUSCLE SPASM 12/03/2017 03/16/2018 Inactive hydrocodone 5 mg-acetaminophen 325 mg tablet RxNorm: 475153 1-1.5 Tablet(s) PO QID as needed 10/21/2017 11/19/2017 Inactive hydrocodone 7.5 mg-acetaminophen 325 mg tablet RxNorm: 571321 1 Tablet(s) PO QID as needed 09/26/2017 10/20/2017 Inactive phentermine 37.5 mg tablet RxNorm: 319230 1 Tablet(s) PO daily 09/26/2017 10/01/2017 Inactive Lyrica 100 mg capsule RxNorm: 618894 1 Capsule(s) PO BID as needed 09/12/2017 12/08/2017 Inactive hydrocodone 7.5 mg-acetaminophen 325 mg tablet RxNorm: 858998 1 Tablet(s) PO QID as needed 08/27/2017 09/23/2017 Inactive Belviq XR 20 mg tablet,extended release RxNorm: 1246473 1 Tablet(s) PO daily 08/27/2017 09/23/2017 Inactive cyclobenzaprine 5 mg tablet RxNorm: 161083 1 Tablet(s) PO TID as needed muscle spasms 08/19/2017 08/23/2017 Inactive hydrocodone 7.5 mg-acetaminophen 325 mg tablet RxNorm: 079365 1 Tablet(s) PO QID as needed 08/02/2017 08/26/2017 Inactive hydrocodone 7.5 mg-acetaminophen 325 mg tablet RxNorm: 465399 1 Tablet(s) PO TID as needed 08/02/2017 08/01/2017 Inactive diazepam 10 mg tablet RxNorm: 039512 1 Tablet(s) PO TID as needed anxiety 07/24/2017 02/02/2018 Inactive hydrocodone 7.5 mg-acetaminophen 325 mg tablet RxNorm: 373701 1 Tablet(s) PO TID as needed 07/11/2017 08/01/2017 Inactive Lyrica 100 mg capsule RxNorm: 061615 1 Capsule(s) PO BID as needed 06/24/2017 09/20/2017 Inactive hydrocodone 5 mg-acetaminophen 325 mg tablet RxNorm: 034987 1 Tablet(s) PO TID 06/24/2017 07/30/2017 Inactive prednisone 10 mg tablet RxNorm: 269147 1 Tablet(s) PO daily 06/18/2017 06/17/2017 Inactive 6-5-4-3-2-1 then stop prednisone 10 mg tablet RxNorm: 189242 1 Tablet(s) PO daily 06/18/2017 08/25/2017 Inactive 6-5-4-3-2-1 then stop Bactrim DS 800 mg-160 mg tablet RxNorm: 289472 1 Tablet(s) PO BID 06/11/2017 06/14/2017 Inactive Bactrim DS 800 mg-160 mg tablet RxNorm: 634818 1 Tablet(s) PO BID 06/03/2017 06/10/2017 Inactive mupirocin 2 % topical ointment RxNorm: 779390 1 Application TOP BID 06/03/2017 08/25/2017 Inactive Lyrica 100 mg capsule RxNorm: 982429 1 Capsule(s) PO BID as needed 05/27/2017 06/23/2017 Inactive Keflex 500 mg capsule RxNorm: 600853 1 Capsule(s) PO TID 05/27/2017 06/02/2017 Inactive Lexapro 10 mg tablet RxNorm: 129357 1 Tablet(s) PO daily 05/27/2017 08/25/2017 Inactive hydrocodone 5 mg-acetaminophen 325 mg tablet RxNorm: 549258 1 Tablet(s) PO TID 05/27/2017 06/23/2017 Inactive hydrocodone 7.5 mg-acetaminophen 325 mg tablet RxNorm: 662873 1 Tablet(s) PO TID as needed 05/13/2017 05/25/2017 Inactive hydrocodone 7.5 mg-acetaminophen 325 mg tablet RxNorm: 863034 1 Tablet(s) PO TID as needed 05/13/2017 05/12/2017 Inactive cyclobenzaprine 5 mg tablet RxNorm: 525455 TAKE ONE TABLET BY MOUTH THREE TIMES DAILY NEEDED FOR MUSCLE SPASM 05/01/2017 05/05/2017 Inactive hydrocodone 5 mg-acetaminophen 325 mg tablet RxNorm: 967071 1 Tablet(s) PO TID as needed 04/24/2017 05/12/2017 Inactive cyclobenzaprine 5 mg tablet RxNorm: 830699 1 Tablet(s) PO TID as needed muscle spasms 04/24/2017 04/28/2017 Inactive diazepam 10 mg tablet RxNorm: 890310 1 Tablet(s) PO TID as needed anxiety 02/22/2017 04/19/2017 Inactive norethindrone acetate 1 mg-ethinyl estradiol 20 mcg tablet RxNorm: 5792042 1 Tablet(s) PO daily 12/18/2016 07/15/2017 Inactive EEMT 1.25 mg-2.5 mg tablet RxNorm: 296894 1 Tablet(s) PO daily 12/06/2016 03/05/2017 Inactive EEMT 1.25 mg-2.5 mg tablet RxNorm: 387656 1 Tablet(s) PO daily 12/06/2016 12/05/2016 Inactive Lexapro 10 mg tablet RxNorm: 246602 1 Tablet(s) PO daily 12/06/2016 05/04/2017 Inactive diazepam 10 mg tablet RxNorm: 035402 1 Tablet(s) PO TID 11/09/2016 12/07/2016 Inactive phentermine 37.5 mg tablet RxNorm: 345299 1 Tablet(s) PO daily 10/25/2016 08/23/2017 Inactive EEMT 1.25 mg-2.5 mg tablet RxNorm: 680071 1 Tablet(s) PO daily 10/25/2016 12/05/2016 Inactive phentermine 37.5 mg tablet RxNorm: 793434 1 Tablet(s) PO daily 09/20/2016 10/24/2016 Inactive Lexapro 10 mg tablet RxNorm: 906126 1 Tablet(s) PO daily 07/10/2016 12/05/2016 Inactive Lexapro 10 mg tablet RxNorm: 850165 1 Tablet(s) PO daily 06/12/2016 07/09/2016 Inactive norethindrone acetate 1 mg-ethinyl estradiol 20 mcg tablet RxNorm: 3098482 1 Tablet(s) PO daily 06/12/2016 12/17/2016 Inactive hydrocodone 10 mg-acetaminophen 325 mg tablet RxNorm: 077700 1 Tablet(s) PO TID No Start Date 05/12/2017 Inactive phentermine 37.5 mg tablet RxNorm: 418068 1 Tablet(s) PO daily No Start Date 09/19/2016 Inactive norethindrone acetate 1 mg-ethinyl estradiol 20 mcg tablet RxNorm: 0736094 1 Tablet(s) PO daily No Start Date 06/11/2016 Inactive EEMT 1.25 mg-2.5 mg tablet RxNorm: 796845 1 Tablet(s) PO daily No Start Date 10/24/2016 Inactive Medication Administered No Medication Administered data Immunizations No Immunization data Assessments Condition Codes Effective Dates Menopausal and female climacteric states ICD-10: N95.1 ICD-9: 627.2 10/09/2018 Chronic pain syndrome ICD-10: G89.4 ICD-9: 338.4 10/09/2018 Overweight ICD-10: E66.3 ICD-9: 278.02 08/29/2018 Generalized anxiety disorder ICD-10: F41.1 ICD-9: 300.02 [...] No Procedures data Vital Signs Date Vital 10/09/2018 Blood Pressure 1: 128/74 Code: 8480-6 BMI: 31.1 Code: 09976-9 Heart Rate 1: 81 bpm Height: 5'2" SpO2: 97% Weight: 170 lbs 08/29/2018 Blood Pressure 1: 120/70 Code: 8480-6 BMI: 31.1 Code: 21597-7 Heart Rate 1: 65 bpm Height: 5'2" Weight: 170 lbs 07/18/2018 Blood Pressure 1: 126/88 Code: 8480-6 Heart Rate 1: 78 bpm Height: SpO2: 97% Weight: 07/16/2018 Blood Pressure 1: 130/78 Code: 8480-6 Heart Rate 1: 84 bpm Weight: 172 lbs 06/18/2018 Blood Pressure 1: 128/80 Code: 8480-6 BMI: 31.1 Code: 33267-8 Heart Rate 1: 80 bpm Height: 5'2" SpO2: 97% Weight: 170 lbs 02/28/2018 Blood Pressure 1: 120/78 Code: 8480-6 BMI: 31.6 Code: 72872-6 Heart Rate 1: 66 bpm Height: 5'2" SpO2: 98% Weight: 173 lbs 12/09/2017 Blood Pressure 1: 116/74 Code: 8480-6 BMI: 31.5 Code: 17571-3 Heart Rate 1: 74 bpm Height: 5'2" SpO2: 95% Weight: 172 lbs 10/21/2017 Blood Pressure 1: 136/82 Code: 8480-6 BMI: 30.4 Code: 54886-9 Heart Rate 1: 79 bpm Height: 5'2" SpO2: 97% Weight: 166 lbs 09/26/2017 Blood Pressure 1: 122/80 Code: 8480-6 BMI: 30.4 Code: 25629-3 Heart Rate 1: 63 bpm Height: 5'2" SpO2: 98% Weight: 166 lbs 08/27/2017 Blood Pressure 1: 132/70 Code: 8480-6 BMI: 30.7 Code: 93077-8 Heart Rate 1: 89 bpm Height: 5'2" SpO2: 98% Weight: 168 lbs 05/27/2017 Blood Pressure 1: 132/72 Code: 8480-6 BMI: 28.9 Code: 51725-2 Heart Rate 1: 72 bpm Height: 5'2" SpO2: 98% Weight: 158 lbs 04/24/2017 Blood Pressure 1: 140/76 Code: 8480-6 BMI: 29.3 Code: 67743-3 Heart Rate 1: 77 bpm Height: 5'2" SpO2: 97% Weight: 160 lbs 03/27/2017 Blood Pressure 1: 128/74 Code: 8480-6 BMI: 29.1 Code: 02907-6 Heart Rate 1: 74 bpm Height: 5'2" SpO2: 98% Temperature: 36.8 (C) / 98.3 (F) Weight: 159 lbs 10/25/2016 Blood Pressure 1: 116/74 Code: 8480-6 BMI: 28.9 Code: 01470-6 Heart Rate 1: 68 bpm Height: 5'2" SpO2: 99% Weight: 158 lbs 09/20/2016 Blood Pressure 1: 116/70 Code: 8480-6 Heart Rate 1: 72 bpm Weight: 150 lbs 08/24/2016 Blood Pressure 1: 118/62 Code: 8480-6 BMI: 27.6 Code: 27778-1 Heart Rate 1: 63 bpm Height: 5'2" SpO2: 99% Weight: 151 lbs 06/12/2016 Blood Pressure 1: 122/74 Code: 8480-6 BMI: 26.9 Code: 38778-8 Heart Rate 1: 52 bpm Height: 5'2" [...] (18-39 years) Menstrual History last menstrual period --__ 03/27/2017 None well woman exam (18-39 years) [...] data Encounters Encounter Performer Location Codes Date 38494 EST. PATIENT, LEVEL III Diagnosis: Chronic pain syndrome[ICD10: G89.4] Diagnosis: Menopausal and female climacteric states[ICD10: N95.1] Veda Jama MD, [facility] CPT-4: 39972 10/09/2018 ([id number]) Miscellaneous no charge Diagnosis: Overweight[ICD10: E66.3] [facility], [facility] CPT-4: 64447 08/29/2018 67344 EST. PATIENT, LEVEL III Diagnosis: Generalized anxiety disorder[ICD10: F41.1] Diagnosis: Major depressive disorder, single episode, moderate[ICD10: F32.1] Veda Jama MD, [facility] CPT-4: 63492 07/18/2018 ([id number]) Miscellaneous no charge Diagnosis: Overweight[ICD10: E66.3] [facility], [facility] CPT-4: 10965 07/16/2018 89109 EST. PATIENT, LEVEL III Diagnosis: Chronic pain syndrome[ICD10: G89.4] Diagnosis: Overweight[ICD10: E66.3] Veda Jama MD, [facility] CPT-4: 31391 06/18/2018 50220 EST. PATIENT, LEVEL IV Diagnosis: Chronic pain syndrome[ICD10: G89.4] Diagnosis: Overweight[ICD10: E66.3] Veda Jama MD, [facility] CPT-4: 74466 02/28/2018 73587 EST. PATIENT, LEVEL III Diagnosis: Chronic pain syndrome[ICD10: G89.4] Diagnosis: Overweight[ICD10: E66.3] Vead Jama MD, [facility] CPT-4: 34583 12/09/2017 61849 EST. PATIENT, LEVEL III Diagnosis: Chronic pain syndrome[ICD10: G89.4] Diagnosis: Overweight[ICD10: E66.3] Veda Jama MD [facility] CPT-4: 20990 10/21/2017 ([id number]) Miscellaneous no charge Diagnosis: Overweight[ICD10: E66.3] [facility] MD [facility] CPT-4: 06235 09/26/2017 68463 EST. PATIENT, LEVEL III Diagnosis: Chronic pain syndrome[ICD10: G89.4] Diagnosis: Overweight[ICD10: E66.3] Veda Jama MD, [facility] CPT-4: 21427 08/27/2017 42854 EST. PATIENT, LEVEL III Diagnosis: Chronic pain syndrome[ICD10: G89.4] Diagnosis: Generalized anxiety disorder[ICD10: F41.1] Diagnosis: Major depressive disorder, single episode, moderate[ICD10: F32.1] Diagnosis: Cellulitis of right lower limb[ICD10: L03.115] Veda Jama MD, [facility] CPT-4: 96281 05/27/2017 ([id number]) 94095 EST. PATIENT, LEVEL IV Diagnosis: Generalized anxiety disorder[ICD10: F41.1] Diagnosis: Major depressive disorder, single episode, moderate[ICD10: F32.1] Diagnosis: Menopausal and female climacteric states[ICD10: N95.1] Diagnosis: Chronic pain syndrome[ICD10: G89.4] Veda Jama MD, [facility] CPT- 4: 40039 04/24/2017 ([id number]) PREV VISIT EST AGE 18-39 Diagnosis: Encounter for gynecological examination (general) (routine) without abnormal findings[ICD10: Z01.419] Veda Jama MD, [facility] CPT-4: 90289 03/27/2017 ([id number]) 15072 EST. PATIENT, LEVEL III Diagnosis: Overweight[ICD10: E66.3] Veda Jama MD, [facility] CPT-4: 95358 10/25/2016 ([id number]) Miscellaneous no charge Diagnosis: Overweight[ICD10: E66.3] Radha Jama MD, [facility] CPT-4: 32259 09/20/2016 79012 EST. PATIENT, LEVEL IV Diagnosis: Other fatigue[ICD10: R53.83] Diagnosis: Overweight[ICD10: E66.3] Diagnosis: Generalized anxiety disorder[ICD10: F41.1] [facility] CPT-4: 10087 08/24/2016 ([id number]) OFFICE VISIT, NEW - LEVEL 4 Diagnosis: Generalized anxiety disorder[ICD10: F41.1] Diagnosis: Major depressive disorder, single episode, moderate[ICD10: F32.1] [facility] CPT-4: 23719 06/12/2016 Plan of Care Planned Activity Notes [...] or concerns. 10/09/2018 Appointment: Veda Duenas WPtel: [facility]5 [facility] (15 min) Moderate 10/09/2018 Patient Education: Patient [...] patient. 07/18/2018 Appointment: Veda Duenas WPtel: [phone] [facility] (15 min) Moderate 07/18/2018 Patient Education: Patient [...] one month for weight check. 06/18/2018 Appointment: Vdea Duenas WPtel: [address] [place], [place] [phone] (15 min) Moderate 06/18/2018 Patient Education: Patient [...] check. 02/28/2018 Appointment: Veda Duenas WPtel: [facility]5 [phone] (30 min) Complex 02/28/2018 Patient Education: Patient Medication Summary Completed 02/28/2018 Patient Education: Obesity Completed 02/28/2018 Appointment: Veda Duenas WPtel: [address] [place], [place] [phone] (15 min) Moderate 02/27/2018 Visit Plan: Chronic [...] for weight check. 12/09/2017 Appointment: Veda Duenastel: [facility]1 [phone] (15 min) Moderate 12/09/2017 Patient Education: Patient [...] check. 10/21/2017 Appointment: Veda Duenas WPtel: [phone] [facility] (15 min) Moderate 10/21/2017 Patient Education: Patient Medication Summary Completed 10/21/2017 Patient Education: Obesity Completed 10/21/2017 Appointment: Nurse Visit 09/26/2017 Patient Education: Patient Medication Summary Completed 09/26/2017 [phone] ([facility] Complex 08/30/2017 Visit Plan: [...] discharge. 05/27/2017 [phone] ([facility]) Complex 05/27/2017 Patient Education: [...] RX. 04/24/2017 [phone] ([facility]) Complex 04/24/2017 Patient Education: [...] per pharmacy. 03/27/2017 Appointment: Veda Duenas WPtel: [facility]2 [facility] 03/27/2017 Patient Education: Patient Medication Summary Completed 03/27/2017 Care Plan: BMI Above normal followup SELF-MGMT EDUC & TRAIN 1 PT Pending 11/07/2016 Visit Plan: Obesity - chronic issue with this patient. The pt has been counseled about diet changes, calorie restriction, and need to exercise. Pt will RTC in one month for weight check. 10/25/2016 Appointment: Veda Duenas WPtel: [facility]7 [facility]66[facility] (15 min) Moderate 10/25/2016 Patient Education: Patient [...] weight check. 08/24/2016 Appointment: Radha Mcgowan WPtel: [phone] [phone] (30 min) Complex 08/24/2016 Appointment: Radha Mcgowan WPtel: [phone] [phone] (30 min) Complex 08/24/2016 Appointment: [phone] (30 min) Complex 08/24/2016 Patient [...] this patient. 06/12/2016 Appointment: [phone] [phone] New Patient 06/12/2016 [...]
--- OUTSIDE RECORDS SUMMARY | 2019-07-01 06:40 | XMS REPORT | CCD ---
Author Author Veda Duenas Organization [facility] Address [address] [place] [address] Phone Care Team Providers Care Computer Console Operator Name Role Phone PP Unavailable CCM Unavailable Summary Purpose Interface Exchange Insurance Providers Payer name Policy type / Coverage type Covered republican ID Effective Begin Date Effective End Date Blue Cross [facility] Blue Cross/[id number] Unknown Family history Father Diagnosis Age At Onset Diabetes Unknown Hyperlipidemia Unknown Hypertension Unknown Heart Attack Unknown Social History Social History Element Codes Description Effective Dates Marital status Unknown CJ 06/12/2016 Number of children Unknown 3 06/12/[address]: 211416133 Never smoker 06/12/[address]: 767802252 Never drinks alcohol 06/12/2016 Allergies, Adverse Reactions, [...] Fill Instructions Lexapro 10 mg tablet RxNorm: 672476 TAKE 1 TABLET BY MOUTH ONCE DAILY 11/26/2018 No Stop Date Active cyclobenzaprine 5 mg tablet RxNorm: 608809 TAKE ONE TABLET BY MOUTH THREE TIMES DAILY NEEDED FOR MUSCLE SPASM 11/12/2018 No Stop Date Active hydrocodone 5 mg-acetaminophen 325 mg tablet RxNorm: 234823 1-1.5 Tablet(s) PO QID as needed 11/06/2018 12/05/2018 Active Lyrica 100 mg capsule RxNorm: 574342 1 Capsule(s) PO BID as needed 10/31/2018 01/28/2019 Active pravastatin 20 mg tablet RxNorm: 560325 1 Tablet(s) PO QPM 10/28/2018 02/24/2019 Active pravastatin 20 mg tablet RxNorm: 850142 1 Tablet(s) PO QPM 10/28/2018 10/27/2018 Inactive EEMT 1.25 mg-2.5 mg tablet RxNorm: 355806 1 Tablet(s) PO daily 10/09/2018 01/06/2019 Active norethindrone acetate 1 mg-ethinyl estradiol 20 mcg tablet RxNorm: 2033352 1 Tablet(s) PO daily 10/09/2018 10/03/2019 Active hydrocodone 5 mg-acetaminophen 325 mg tablet RxNorm: 195707 1-1.5 Tablet(s) PO QID as needed 10/09/2018 11/05/2018 Inactive hydrocodone 5 mg-acetaminophen 325 mg tablet RxNorm: 100749 1-1.5 Tablet(s) PO QID as needed 09/11/2018 10/08/2018 Inactive phentermine 37.5 mg tablet RxNorm: 401641 1 Tablet(s) PO daily 08/29/2018 No Stop Date Active cyclobenzaprine 5 mg tablet RxNorm: 309807 TAKE ONE TABLET BY MOUTH THREE TIMES DAILY NEEDED FOR MUSCLE SPASM 08/27/2018 11/11/2018 Inactive hydrocodone 5 mg-acetaminophen 325 mg tablet RxNorm: 135599 1-1.5 Tablet(s) PO QID as needed 08/14/2018 09/10/2018 Inactive Lexapro 10 mg tablet RxNorm: 702019 1 Tablet(s) PO daily 07/18/2018 08/16/2018 Inactive diazepam 10 mg tablet RxNorm: 952936 1 Tablet(s) PO TID as needed anxiety 07/11/2018 07/14/2018 Inactive Zorvolex 35 mg capsule RxNorm: 0290791 1 Capsule(s) PO TID 06/18/2018 No Stop Date Active hydrocodone 5 mg-acetaminophen 325 mg tablet RxNorm: 561819 1-1.5 Tablet(s) PO QID as needed 06/18/2018 07/17/2018 Inactive cyclobenzaprine 5 mg tablet RxNorm: 079008 TAKE ONE TABLET BY MOUTH THREE TIMES DAILY NEEDED FOR MUSCLE SPASM 06/04/2018 08/26/2018 Inactive hydrocodone 5 mg-acetaminophen 325 mg tablet RxNorm: 844230 1-1.5 Tablet(s) PO QID as needed 05/26/2018 06/17/2018 Inactive cyclobenzaprine 5 mg tablet RxNorm: 159411 TAKE ONE TABLET BY MOUTH THREE TIMES DAILY NEEDED FOR MUSCLE SPASM 05/07/2018 06/03/2018 Inactive ibuprofen 800 mg tablet RxNorm: 413836 TAKE ONE TABLET BY MOUTH THREE TIMES DAILY NEEDED 04/28/2018 No Stop Date Active hydrocodone 5 mg-acetaminophen 325 mg tablet RxNorm: 684403 1-1.5 Tablet(s) PO QID as needed 04/28/2018 05/25/2018 Inactive diazepam 10 mg tablet RxNorm: 270581 1 Tablet(s) PO TID as needed anxiety 04/22/2018 06/19/2018 Inactive hydrocodone 5 mg-acetaminophen 325 mg tablet RxNorm: 496883 1-1.5 Tablet(s) PO QID as needed 03/25/2018 04/23/2018 Inactive cyclobenzaprine 5 mg tablet RxNorm: 508870 TAKE ONE TABLET BY MOUTH THREE TIMES DAILY NEEDED FOR MUSCLE SPASM 03/17/2018 05/06/2018 Inactive hydrocodone 5 mg-acetaminophen 325 mg tablet RxNorm: 252705 1-1.5 Tablet(s) PO QID as needed 03/02/2018 03/24/2018 Inactive phentermine 37.5 mg tablet RxNorm: 848791 1 Tablet(s) PO daily 03/02/2018 08/28/2018 Inactive hydrocodone 5 mg-acetaminophen 325 mg tablet RxNorm: 528020 1-1.5 Tablet(s) PO QID as needed 02/03/2018 03/01/2018 Inactive diazepam 10 mg tablet RxNorm: 228194 1 Tablet(s) PO TID as needed anxiety 01/01/2018 02/28/2018 Inactive hydrocodone 5 mg-acetaminophen 325 mg tablet RxNorm: 491578 1-1.5 Tablet(s) PO QID as needed 12/09/2017 01/07/2018 Inactive ibuprofen 800 mg tablet RxNorm: 583377 1 Tablet(s) PO TID as needed 12/09/2017 01/07/2018 Inactive Lyrica 100 mg capsule RxNorm: 702905 1 Capsule(s) PO BID as needed 12/09/2017 03/07/2018 Inactive cyclobenzaprine 5 mg tablet RxNorm: 932129 TAKE ONE TABLET BY MOUTH THREE TIMES DAILY NEEDED FOR MUSCLE SPASM 12/03/2017 03/16/2018 Inactive hydrocodone 5 mg-acetaminophen 325 mg tablet RxNorm: 552498 1-1.5 Tablet(s) PO QID as needed 10/21/2017 11/19/2017 Inactive hydrocodone 7.5 mg-acetaminophen 325 mg tablet RxNorm: 184926 1 Tablet(s) PO QID as needed 09/26/2017 10/20/2017 Inactive phentermine 37.5 mg tablet RxNorm: 798316 1 Tablet(s) PO daily 09/26/2017 10/01/2017 Inactive Lyrica 100 mg capsule RxNorm: 958300 1 Capsule(s) PO BID as needed 09/12/2017 12/08/2017 Inactive hydrocodone 7.5 mg-acetaminophen 325 mg tablet RxNorm: 151543 1 Tablet(s) PO QID as needed 08/27/2017 09/23/2017 Inactive Belviq XR 20 mg tablet,extended release RxNorm: 9834537 1 Tablet(s) PO daily 08/27/2017 09/23/2017 Inactive cyclobenzaprine 5 mg tablet RxNorm: 259506 1 Tablet(s) PO TID as needed muscle spasms 08/19/2017 08/23/2017 Inactive hydrocodone 7.5 mg-acetaminophen 325 mg tablet RxNorm: 735263 1 Tablet(s) PO QID as needed 08/02/2017 08/26/2017 Inactive hydrocodone 7.5 mg-acetaminophen 325 mg tablet RxNorm: 856011 1 Tablet(s) PO TID as needed 08/02/2017 08/01/2017 Inactive diazepam 10 mg tablet RxNorm: 314874 1 Tablet(s) PO TID as needed anxiety 07/24/2017 02/02/2018 Inactive hydrocodone 7.5 mg-acetaminophen 325 mg tablet RxNorm: 895620 1 Tablet(s) PO TID as needed 07/11/2017 08/01/2017 Inactive Lyrica 100 mg capsule RxNorm: 038714 1 Capsule(s) PO BID as needed 06/24/2017 09/20/2017 Inactive hydrocodone 5 mg-acetaminophen 325 mg tablet RxNorm: 265028 1 Tablet(s) PO TID 06/24/2017 07/30/2017 Inactive prednisone 10 mg tablet RxNorm: 438195 1 Tablet(s) PO daily 06/18/2017 06/17/2017 Inactive 6-5-4-3-2-1 then stop prednisone 10 mg tablet RxNorm: 275894 1 Tablet(s) PO daily 06/18/2017 08/25/2017 Inactive 6-5-4-3-2-1 then stop Bactrim DS 800 mg-160 mg tablet RxNorm: 782658 1 Tablet(s) PO BID 06/11/2017 06/14/2017 Inactive Bactrim DS 800 mg-160 mg tablet RxNorm: 298271 1 Tablet(s) PO BID 06/03/2017 06/10/2017 Inactive mupirocin 2 % topical ointment RxNorm: 827089 1 Application TOP BID 06/03/2017 08/25/2017 Inactive Lyrica 100 mg capsule RxNorm: 200562 1 Capsule(s) PO BID as needed 05/27/2017 06/23/2017 Inactive Keflex 500 mg capsule RxNorm: 214093 1 Capsule(s) PO TID 05/27/2017 06/02/2017 Inactive Lexapro 10 mg tablet RxNorm: 991037 1 Tablet(s) PO daily 05/27/2017 08/25/2017 Inactive hydrocodone 5 mg-acetaminophen 325 mg tablet RxNorm: 132508 1 Tablet(s) PO TID 05/27/2017 06/23/2017 Inactive hydrocodone 7.5 mg-acetaminophen 325 mg tablet RxNorm: 978976 1 Tablet(s) PO TID as needed 05/13/2017 05/25/2017 Inactive hydrocodone 7.5 mg-acetaminophen 325 mg tablet RxNorm: 196436 1 Tablet(s) PO TID as needed 05/13/2017 05/12/2017 Inactive cyclobenzaprine 5 mg tablet RxNorm: 253996 TAKE ONE TABLET BY MOUTH THREE TIMES DAILY NEEDED FOR MUSCLE SPASM 05/01/2017 05/05/2017 Inactive hydrocodone 5 mg-acetaminophen 325 mg tablet RxNorm: 116330 1 Tablet(s) PO TID as needed 04/24/2017 05/12/2017 Inactive cyclobenzaprine 5 mg tablet RxNorm: 073339 1 Tablet(s) PO TID as needed muscle spasms 04/24/2017 04/28/2017 Inactive diazepam 10 mg tablet RxNorm: 073757 1 Tablet(s) PO TID as needed anxiety 02/22/2017 04/19/2017 Inactive norethindrone acetate 1 mg-ethinyl estradiol 20 mcg tablet RxNorm: 9563608 1 Tablet(s) PO daily 12/18/2016 07/15/2017 Inactive EEMT 1.25 mg-2.5 mg tablet RxNorm: 375467 1 Tablet(s) PO daily 12/06/2016 03/05/2017 Inactive EEMT 1.25 mg-2.5 mg tablet RxNorm: 937581 1 Tablet(s) PO daily 12/06/2016 12/05/2016 Inactive Lexapro 10 mg tablet RxNorm: 336930 1 Tablet(s) PO daily 12/06/2016 05/04/2017 Inactive diazepam 10 mg tablet RxNorm: 230981 1 Tablet(s) PO TID 11/09/2016 12/07/2016 Inactive phentermine 37.5 mg tablet RxNorm: 800044 1 Tablet(s) PO daily 10/25/2016 08/23/2017 Inactive EEMT 1.25 mg-2.5 mg tablet RxNorm: 743291 1 Tablet(s) PO daily 10/25/2016 12/05/2016 Inactive phentermine 37.5 mg tablet RxNorm: 739713 1 Tablet(s) PO daily 09/20/2016 10/24/2016 Inactive Lexapro 10 mg tablet RxNorm: 037981 1 Tablet(s) PO daily 07/10/2016 12/05/2016 Inactive Lexapro 10 mg tablet RxNorm: 514207 1 Tablet(s) PO daily 06/12/2016 07/09/2016 Inactive norethindrone acetate 1 mg-ethinyl estradiol 20 mcg tablet RxNorm: 2799026 1 Tablet(s) PO daily 06/12/2016 12/17/2016 Inactive hydrocodone 10 mg-acetaminophen 325 mg tablet RxNorm: 579515 1 Tablet(s) PO TID No Start Date 05/12/2017 Inactive phentermine 37.5 mg tablet RxNorm: 212264 1 Tablet(s) PO daily No Start Date 09/19/2016 Inactive norethindrone acetate 1 mg-ethinyl estradiol 20 mcg tablet RxNorm: 0093509 1 Tablet(s) PO daily No Start Date 06/11/2016 Inactive EEMT 1.25 mg-2.5 mg tablet RxNorm: 280010 1 Tablet(s) PO daily No Start Date [...] 1: 128/74 Code: 8480-6 BMI: 31.1 Code: 61631-7 Heart Rate 1: 81 bpm Height: 5'2" SpO2: 97% Weight: 170 lbs 08/29/2018 Blood Pressure 1: 120/70 Code: 8480-6 BMI: 31.1 Code: 53897-0 Heart Rate 1: 65 bpm Height: 5'2" Weight: 170 lbs 07/18/2018 Blood Pressure 1: 126/88 Code: 8480-6 Heart Rate 1: 78 bpm Height: SpO2: 97% Weight: 07/16/2018 Blood Pressure 1: 130/78 Code: 8480-6 Heart Rate 1: 84 bpm Weight: 172 lbs 06/18/2018 Blood Pressure 1: 128/80 Code: 8480-6 BMI: 31.1 Code: 21305-1 Heart Rate 1: 80 bpm Height: 5'2" SpO2: 97% Weight: 170 lbs 02/28/2018 Blood Pressure 1: 120/78 Code: 8480-6 BMI: 31.6 Code: 86792-0 Heart Rate 1: 66 bpm Height: 5'2" SpO2: 98% Weight: 173 lbs 12/09/2017 Blood Pressure 1: 116/74 Code: 8480-6 BMI: 31.5 Code: 02741-5 Heart Rate 1: 74 bpm Height: 5'2" SpO2: 95% Weight: 172 lbs 10/21/2017 Blood Pressure 1: 136/82 Code: 8480-6 BMI: 30.4 Code: 43641-4 Heart Rate 1: 79 bpm Height: 5'2" SpO2: 97% Weight: 166 lbs 09/26/2017 Blood Pressure 1: 122/80 Code: 8480-6 BMI: 30.4 Code: 23067-0 Heart Rate 1: 63 bpm Height: 5'2" SpO2: 98% Weight: 166 lbs 08/27/2017 Blood Pressure 1: 132/70 Code: 8480-6 BMI: 30.7 Code: 80089-6 Heart Rate 1: 89 bpm Height: 5'2" SpO2: 98% Weight: 168 lbs 05/27/2017 Blood Pressure 1: 132/72 Code: 8480-6 BMI: 28.9 Code: 58682-2 Heart Rate 1: 72 bpm Height: 5'2" SpO2: 98% Weight: 158 lbs 04/24/2017 Blood Pressure 1: 140/76 Code: 8480-6 BMI: 29.3 Code: 71990-8 Heart Rate 1: 77 bpm Height: 5'2" SpO2: 97% Weight: 160 lbs 03/27/2017 Blood Pressure 1: 128/74 Code: 8480-6 BMI: 29.1 Code: 13967-1 Heart Rate 1: 74 bpm Height: 5'2" SpO2: 98% Temperature: 36.8 (C) / 98.3 (F) Weight: 159 lbs 10/25/2016 Blood Pressure 1: 116/74 Code: 8480-6 BMI: 28.9 Code: 56021-4 Heart Rate 1: 68 bpm Height: 5'2" SpO2: 99% Weight: 158 lbs 09/20/2016 Blood Pressure 1: 116/70 Code: 8480-6 Heart Rate 1: 72 bpm Weight: 150 lbs 08/24/2016 Blood Pressure 1: 118/62 Code: 8480-6 BMI: 27.6 Code: 51751-0 Heart Rate 1: 63 bpm Height: 5'2" SpO2: 99% Weight: 151 lbs 06/12/2016 Blood Pressure 1: 122/74 Code: 8480-6 BMI: 26.9 Code: 36460-0 Heart Rate 1: 52 bpm Height: 5'2" [...] data Encounters Encounter Performer Location Codes Date 10484 EST. PATIENT, LEVEL III Diagnosis: Chronic pain syndrome[ICD10: G89.4] Diagnosis: Menopausal and female climacteric states[ICD10: N95.1] Veda Jama MD, [facility] CPT-4: 93243 10/09/2018 ([id number]) Miscellaneous no charge Diagnosis: Overweight[ICD10: E66.3] [facility], [facility] CPT-4: 36966 08/29/2018 09614 EST. PATIENT, LEVEL III Diagnosis: Generalized anxiety disorder[ICD10: F41.1] Diagnosis: Major depressive disorder, single episode, moderate[ICD10: F32.1] Veda Jama MD, [facility] CPT-4: 95832 07/18/2018 ([id number]) Miscellaneous no charge Diagnosis: Overweight[ICD10: E66.3] [facility], [facility] CPT-4: 10203 07/16/2018 19013 EST. PATIENT, LEVEL III Diagnosis: Chronic pain syndrome[ICD10: G89.4] Diagnosis: Overweight[ICD10: E66.3] Veda Jama MD, [facility] CPT-4: 13498 06/18/2018 48551 EST. PATIENT, LEVEL IV Diagnosis: Chronic pain syndrome[ICD10: G89.4] Diagnosis: Overweight[ICD10: E66.3] Veda Jama MD, [facility] CPT-4: 67917 02/28/2018 19789 EST. PATIENT, LEVEL III Diagnosis: Chronic pain syndrome[ICD10: G89.4] Diagnosis: Overweight[ICD10: E66.3] Veda Jama MD, [facility] CPT-4: 18603 12/09/2017 62881 EST. PATIENT, LEVEL III Diagnosis: Chronic pain syndrome[ICD10: G89.4] Diagnosis: Overweight[ICD10: E66.3] Veda Jama MD, [facility] CPT-4: 05963 10/21/2017 ([id number]) Miscellaneous no charge Diagnosis: Overweight[ICD10: E66.3] [facility], [facility] CPT-4: 58362 09/26/2017 23315 EST. PATIENT, LEVEL III Diagnosis: Chronic pain syndrome[ICD10: G89.4] Diagnosis: Overweight[ICD10: E66.3] Veda Jama MD, [facility] CPT-4: 96929 08/27/2017 34928 EST. PATIENT, LEVEL III Diagnosis: Chronic pain syndrome[ICD10: G89.4] Diagnosis: Generalized anxiety disorder[ICD10: F41.1] Diagnosis: Major depressive disorder, single episode, moderate[ICD10: F32.1] Diagnosis: Cellulitis of right lower limb[ICD10: L03.115] Veda Jama MD, [facility] CPT-4: 09866 05/27/2017 ([id number]) 32004 EST. PATIENT, LEVEL IV Diagnosis: Generalized anxiety disorder[ICD10: F41.1] Diagnosis: Major depressive disorder, single episode, moderate[ICD10: F32.1] Diagnosis: Menopausal and female climacteric states[ICD10: N95.1] Diagnosis: Chronic pain syndrome[ICD10: G89.4] Veda Jama MD, [facility] CPT- 4: 07692 04/24/2017 ([id number]) PREV VISIT EST AGE 18-39 Diagnosis: Encounter for gynecological examination (general) (routine) without abnormal findings[ICD10: Z01.419] Veda Jama MD, [facility] CPT-4: 36727 03/27/2017 ([id number]) 30897 EST. PATIENT, LEVEL III Diagnosis: Overweight[ICD10: E66.3] Veda Jama MD, [facility] CPT-4: 31300 10/25/2016 ([id number]) Miscellaneous no charge Diagnosis: Overweight[ICD10: E66.3] Radha Jama MD, [facility] CPT-4: 18057 09/20/2016 41802 EST. PATIENT, LEVEL IV Diagnosis: Other fatigue[ICD10: R53.83] Diagnosis: Overweight[ICD10: E66.3] Diagnosis: Generalized anxiety disorder[ICD10: F41.1] [facility] CPT-4: 16970 08/24/2016 ([id number]) OFFICE VISIT, NEW - LEVEL 4 Diagnosis: Generalized anxiety disorder[ICD10: F41.1] Diagnosis: Major depressive disorder, single episode, moderate[ICD10: F32.1] [facility] CPT-4: 76970 06/12/2016 Plan of Care Planned Activity Notes [...] concerns. 10/09/2018 Appointment: Veda Duenas WPtel: [phone] [facility] (15 min) Moderate 10/09/2018 Patient Education: Patient [...] patient. 07/18/2018 Appointment: Veda Duenas WPtel: [phone] [facility] (15 min) Moderate 07/18/2018 Patient Education: Patient [...] weight check. 06/18/2018 Appointment: Vdea Duenas WPtel: [facility] (15 min) Moderate 06/18/2018 Patient Education: Patient [...] weight check. 02/28/2018 Appointment: Veda Duenas WPtel: [address] [place], [place] [phone] (30 min) Complex 02/28/2018 Patient Education: Patient Medication Summary Completed 02/28/2018 Patient Education: Obesity Completed 02/28/2018 Appointment: Veda Duenas WPtel: [address] [place], [place] [phone] (15 min) Moderate 02/27/2018 Visit Plan: Chronic [...] weight check. 12/09/2017 Appointment: Veda Duenas WPtel: [address] [place], [place] [phone] (15 min) Moderate 12/09/2017 Patient Education: Patient [...] check. 10/21/2017 Appointment: Veda Duenas WPtel: [phone] [facility] (15 min) Moderate 10/21/2017 Patient Education: Patient Medication Summary Completed 10/21/2017 Patient Education: Obesity Completed 10/21/2017 Appointment: Nurse Visit 09/26/2017 Patient Education: Patient Medication Summary Completed 09/26/2017 Appointment: Veda Duenas WPtel: [phone] [facility] (30 min) Complex 08/30/2017 Visit Plan: Chronic [...] discharge. 05/27/2017 [phone] ([facility] Complex 05/27/2017 Patient Education: [...] controlled with new RX. 04/24/2017 [phone] ([facility] min) Complex 04/24/2017 Patient Education: [...] [facility] [facility] 03/27/2017 Patient Education: Patient [...] Duenas WPtel: [facility] (15 min) Moderate 10/25/2016 Patient Education: Patient [...] weight check. 08/24/2016 Appointment: Radha Mcgowan [facility]Ptel[phone] (30 min) Complex 08/24/2016 Appointment: Radha Mcgowan WPtel: [address] [place], [place] [phone] (30 min) Complex 08/24/2016 Appointment: Radha Mcgowan WPtel: [address] [place] [phone] (30 min) Complex 08/24/2016 Patient Education: Patient [...] patient. 06/12/2016 App[facility]ment: [facility] [phone] [phone] New Patient 06/12/2016 Patient Education: Patient [...]
--- OUTSIDE RECORDS SUMMARY | 2019-07-01 06:41 | XMS REPORT | CCD ---
Author Author Veda Duenas Organization [facility] Address [address] [place] [address] Phone Care Team Providers Care Assembler [employer] Name Role Phone PP Unavailable CCM Unavailable Summary Purpose Interface Exchange Insurance Providers Payer name Policy type / Coverage type Covered green party ID Effective Begin Date Effective End Date Blue Cross [facility] Blue Cross/[id number] Unknown Family history Father Diagnosis Age At Onset Diabetes Unknown Hyperlipidemia Unknown Hypertension Unknown Heart Attack Unknown Social History Social History Element Codes Description Effective Dates Marital status Unknown CJ 06/12/2016 Number of children Unknown 3 06/12/[address]: 768832377 Never smoker 06/12/[address]: 055499382 Never drinks alcohol 06/12/2016 Allergies, Adverse Reactions, [...] Fill Instructions cyclobenzaprine 5 mg tablet RxNorm: 840394 TAKE ONE TABLET BY MOUTH THREE TIMES DAILY NEEDED FOR MUSCLE SPASM 11/12/2018 No Stop Date Active hydrocodone 5 mg-acetaminophen 325 mg tablet RxNorm: 078426 1-1.5 Tablet(s) PO QID as needed 11/06/2018 12/05/2018 Active Lyrica 100 mg capsule RxNorm: 205690 1 Capsule(s) PO BID as needed 10/31/2018 01/28/2019 Active pravastatin 20 mg tablet RxNorm: 359299 1 Tablet(s) PO QPM 10/28/2018 02/24/2019 Active pravastatin 20 mg tablet RxNorm: 790950 1 Tablet(s) PO QPM 10/28/2018 10/27/2018 Inactive EEMT 1.25 mg-2.5 mg tablet RxNorm: 401459 1 Tablet(s) PO daily 10/09/2018 01/06/2019 Active norethindrone acetate 1 mg-ethinyl estradiol 20 mcg tablet RxNorm: 4542006 1 Tablet(s) PO daily 10/09/2018 10/03/2019 Active hydrocodone 5 mg-acetaminophen 325 mg tablet RxNorm: 330515 1-1.5 Tablet(s) PO QID as needed 10/09/2018 11/05/2018 Inactive hydrocodone 5 mg-acetaminophen 325 mg tablet RxNorm: 910190 1-1.5 Tablet(s) PO QID as needed 09/11/2018 10/08/2018 Inactive phentermine 37.5 mg tablet RxNorm: 874070 1 Tablet(s) PO daily 08/29/2018 No Stop Date Active cyclobenzaprine 5 mg tablet RxNorm: 390798 TAKE ONE TABLET BY MOUTH THREE TIMES DAILY NEEDED FOR MUSCLE SPASM 08/27/2018 11/11/2018 Inactive hydrocodone 5 mg-acetaminophen 325 mg tablet RxNorm: 833177 1-1.5 Tablet(s) PO QID as needed 08/14/2018 09/10/2018 Inactive Lexapro 10 mg tablet RxNorm: 026293 1 Tablet(s) PO daily 07/18/2018 08/16/2018 Inactive diazepam 10 mg tablet RxNorm: 820276 1 Tablet(s) PO TID as needed anxiety 07/11/2018 07/14/2018 Inactive Zorvolex 35 mg capsule RxNorm: 2802926 1 Capsule(s) PO TID 06/18/2018 No Stop Date Active hydrocodone 5 mg-acetaminophen 325 mg tablet RxNorm: 508443 1-1.5 Tablet(s) PO QID as needed 06/18/2018 07/17/2018 Inactive cyclobenzaprine 5 mg tablet RxNorm: 727605 TAKE ONE TABLET BY MOUTH THREE TIMES DAILY NEEDED FOR MUSCLE SPASM 06/04/2018 08/26/2018 Inactive hydrocodone 5 mg-acetaminophen 325 mg tablet RxNorm: 572036 1-1.5 Tablet(s) PO QID as needed 05/26/2018 06/17/2018 Inactive cyclobenzaprine 5 mg tablet RxNorm: 614368 TAKE ONE TABLET BY MOUTH THREE TIMES DAILY NEEDED FOR MUSCLE SPASM 05/07/2018 06/03/2018 Inactive ibuprofen 800 mg tablet RxNorm: 763314 TAKE ONE TABLET BY MOUTH THREE TIMES DAILY NEEDED 04/28/2018 No Stop Date Active hydrocodone 5 mg-acetaminophen 325 mg tablet RxNorm: 473931 1-1.5 Tablet(s) PO QID as needed 04/28/2018 05/25/2018 Inactive diazepam 10 mg tablet RxNorm: 954289 1 Tablet(s) PO TID as needed anxiety 04/22/2018 06/19/2018 Inactive hydrocodone 5 mg-acetaminophen 325 mg tablet RxNorm: 034810 1-1.5 Tablet(s) PO QID as needed 03/25/2018 04/23/2018 Inactive cyclobenzaprine 5 mg tablet RxNorm: 201442 TAKE ONE TABLET BY MOUTH THREE TIMES DAILY NEEDED FOR MUSCLE SPASM 03/17/2018 05/06/2018 Inactive hydrocodone 5 mg-acetaminophen 325 mg tablet RxNorm: 004956 1-1.5 Tablet(s) PO QID as needed 03/02/2018 03/24/2018 Inactive phentermine 37.5 mg tablet RxNorm: 860252 1 Tablet(s) PO daily 03/02/2018 08/28/2018 Inactive hydrocodone 5 mg-acetaminophen 325 mg tablet RxNorm: 086270 1-1.5 Tablet(s) PO QID as needed 02/03/2018 03/01/2018 Inactive diazepam 10 mg tablet RxNorm: 557158 1 Tablet(s) PO TID as needed anxiety 01/01/2018 02/28/2018 Inactive hydrocodone 5 mg-acetaminophen 325 mg tablet RxNorm: 613792 1-1.5 Tablet(s) PO QID as needed 12/09/2017 01/07/2018 Inactive ibuprofen 800 mg tablet RxNorm: 873379 1 Tablet(s) PO TID as needed 12/09/2017 01/07/2018 Inactive Lyrica 100 mg capsule RxNorm: 360333 1 Capsule(s) PO BID as needed 12/09/2017 03/07/2018 Inactive cyclobenzaprine 5 mg tablet RxNorm: 005664 TAKE ONE TABLET BY MOUTH THREE TIMES DAILY NEEDED FOR MUSCLE SPASM 12/03/2017 03/16/2018 Inactive hydrocodone 5 mg-acetaminophen 325 mg tablet RxNorm: 887671 1-1.5 Tablet(s) PO QID as needed 10/21/2017 11/19/2017 Inactive hydrocodone 7.5 mg-acetaminophen 325 mg tablet RxNorm: 756640 1 Tablet(s) PO QID as needed 09/26/2017 10/20/2017 Inactive phentermine 37.5 mg tablet RxNorm: 746963 1 Tablet(s) PO daily 09/26/2017 10/01/2017 Inactive Lyrica 100 mg capsule RxNorm: 258795 1 Capsule(s) PO BID as needed 09/12/2017 12/08/2017 Inactive hydrocodone 7.5 mg-acetaminophen 325 mg tablet RxNorm: 424986 1 Tablet(s) PO QID as needed 08/27/2017 09/23/2017 Inactive Belviq XR 20 mg tablet,extended release RxNorm: 7228343 1 Tablet(s) PO daily 08/27/2017 09/23/2017 Inactive cyclobenzaprine 5 mg tablet RxNorm: 199478 1 Tablet(s) PO TID as needed muscle spasms 08/19/2017 08/23/2017 Inactive hydrocodone 7.5 mg-acetaminophen 325 mg tablet RxNorm: 309360 1 Tablet(s) PO QID as needed 08/02/2017 08/26/2017 Inactive hydrocodone 7.5 mg-acetaminophen 325 mg tablet RxNorm: 233279 1 Tablet(s) PO TID as needed 08/02/2017 08/01/2017 Inactive diazepam 10 mg tablet RxNorm: 913442 1 Tablet(s) PO TID as needed anxiety 07/24/2017 02/02/2018 Inactive hydrocodone 7.5 mg-acetaminophen 325 mg tablet RxNorm: 304880 1 Tablet(s) PO TID as needed 07/11/2017 08/01/2017 Inactive Lyrica 100 mg capsule RxNorm: 481570 1 Capsule(s) PO BID as needed 06/24/2017 09/20/2017 Inactive hydrocodone 5 mg-acetaminophen 325 mg tablet RxNorm: 707210 1 Tablet(s) PO TID 06/24/2017 07/30/2017 Inactive prednisone 10 mg tablet RxNorm: 486581 1 Tablet(s) PO daily 06/18/2017 06/17/2017 Inactive 6-5-4-3-2-1 then stop prednisone 10 mg tablet RxNorm: 085776 1 Tablet(s) PO daily 06/18/2017 08/25/2017 Inactive 6-5-4-3-2-1 then stop Bactrim DS 800 mg-160 mg tablet RxNorm: 397450 1 Tablet(s) PO BID 06/11/2017 06/14/2017 Inactive Bactrim DS 800 mg-160 mg tablet RxNorm: 568331 1 Tablet(s) PO BID 06/03/2017 06/10/2017 Inactive mupirocin 2 % topical ointment RxNorm: 715096 1 Application TOP BID 06/03/2017 08/25/2017 Inactive Lyrica 100 mg capsule RxNorm: 428258 1 Capsule(s) PO BID as needed 05/27/2017 06/23/2017 Inactive Keflex 500 mg capsule RxNorm: 523558 1 Capsule(s) PO TID 05/27/2017 06/02/2017 Inactive Lexapro 10 mg tablet RxNorm: 122327 1 Tablet(s) PO daily 05/27/2017 08/25/2017 Inactive hydrocodone 5 mg-acetaminophen 325 mg tablet RxNorm: 505370 1 Tablet(s) PO TID 05/27/2017 06/23/2017 Inactive hydrocodone 7.5 mg-acetaminophen 325 mg tablet RxNorm: 008831 1 Tablet(s) PO TID as needed 05/13/2017 05/25/2017 Inactive hydrocodone 7.5 mg-acetaminophen 325 mg tablet RxNorm: 975169 1 Tablet(s) PO TID as needed 05/13/2017 05/12/2017 Inactive cyclobenzaprine 5 mg tablet RxNorm: 470857 TAKE ONE TABLET BY MOUTH THREE TIMES DAILY NEEDED FOR MUSCLE SPASM 05/01/2017 05/05/2017 Inactive hydrocodone 5 mg-acetaminophen 325 mg tablet RxNorm: 199438 1 Tablet(s) PO TID as needed 04/24/2017 05/12/2017 Inactive cyclobenzaprine 5 mg tablet RxNorm: 258252 1 Tablet(s) PO TID as needed muscle spasms 04/24/2017 04/28/2017 Inactive diazepam 10 mg tablet RxNorm: 928659 1 Tablet(s) PO TID as needed anxiety 02/22/2017 04/19/2017 Inactive norethindrone acetate 1 mg-ethinyl estradiol 20 mcg tablet RxNorm: 1620332 1 Tablet(s) PO daily 12/18/2016 07/15/2017 Inactive EEMT 1.25 mg-2.5 mg tablet RxNorm: 321904 1 Tablet(s) PO daily 12/06/2016 03/05/2017 Inactive EEMT 1.25 mg-2.5 mg tablet RxNorm: 432137 1 Tablet(s) PO daily 12/06/2016 12/05/2016 Inactive Lexapro 10 mg tablet RxNorm: 677673 1 Tablet(s) PO daily 12/06/2016 05/04/2017 Inactive diazepam 10 mg tablet RxNorm: 462449 1 Tablet(s) PO TID 11/09/2016 12/07/2016 Inactive phentermine 37.5 mg tablet RxNorm: 936044 1 Tablet(s) PO daily 10/25/2016 08/23/2017 Inactive EEMT 1.25 mg-2.5 mg tablet RxNorm: 366724 1 Tablet(s) PO daily 10/25/2016 12/05/2016 Inactive phentermine 37.5 mg tablet RxNorm: 829548 1 Tablet(s) PO daily 09/20/2016 10/24/2016 Inactive Lexapro 10 mg tablet RxNorm: 362006 1 Tablet(s) PO daily 07/10/2016 12/05/2016 Inactive Lexapro 10 mg tablet RxNorm: 860008 1 Tablet(s) PO daily 06/12/2016 07/09/2016 Inactive norethindrone acetate 1 mg-ethinyl estradiol 20 mcg tablet RxNorm: 7466333 1 Tablet(s) PO daily 06/12/2016 12/17/2016 Inactive hydrocodone 10 mg-acetaminophen 325 mg tablet RxNorm: 322953 1 Tablet(s) PO TID No Start Date 05/12/2017 Inactive phentermine 37.5 mg tablet RxNorm: 357994 1 Tablet(s) PO daily No Start Date 09/19/2016 Inactive norethindrone acetate 1 mg-ethinyl estradiol 20 mcg tablet RxNorm: 3778827 1 Tablet(s) PO daily No Start Date 06/11/2016 Inactive EEMT 1.25 mg-2.5 mg tablet RxNorm: 935285 1 Tablet(s) PO daily No Start Date [...] 1: 128/74 Code: 8480-6 BMI: 31.1 Code: 17111-3 Heart Rate 1: 81 bpm Height: 5'2" SpO2: 97% Weight: 170 lbs 08/29/2018 Blood Pressure 1: 120/70 Code: 8480-6 BMI: 31.1 Code: 78498-2 Heart Rate 1: 65 bpm Height: 5'2" Weight: 170 lbs 07/18/2018 Blood Pressure 1: 126/88 Code: 8480-6 Heart Rate 1: 78 bpm Height: SpO2: 97% Weight: 07/16/2018 Blood Pressure 1: 130/78 Code: 8480-6 Heart Rate 1: 84 bpm Weight: 172 lbs 06/18/2018 Blood Pressure 1: 128/80 Code: 8480-6 BMI: 31.1 Code: 27191-3 Heart Rate 1: 80 bpm Height: 5'2" SpO2: 97% Weight: 170 lbs 02/28/2018 Blood Pressure 1: 120/78 Code: 8480-6 BMI: 31.6 Code: 43847-4 Heart Rate 1: 66 bpm Height: 5'2" SpO2: 98% Weight: 173 lbs 12/09/2017 Blood Pressure 1: 116/74 Code: 8480-6 BMI: 31.5 Code: 46188-3 Heart Rate 1: 74 bpm Height: 5'2" SpO2: 95% Weight: 172 lbs 10/21/2017 Blood Pressure 1: 136/82 Code: 8480-6 BMI: 30.4 Code: 92035-7 Heart Rate 1: 79 bpm Height: 5'2" SpO2: 97% Weight: 166 lbs 09/26/2017 Blood Pressure 1: 122/80 Code: 8480-6 BMI: 30.4 Code: 92441-7 Heart Rate 1: 63 bpm Height: 5'2" SpO2: 98% Weight: 166 lbs 08/27/2017 Blood Pressure 1: 132/70 Code: 8480-6 BMI: 30.7 Code: 05704-4 Heart Rate 1: 89 bpm Height: 5'2" SpO2: 98% Weight: 168 lbs 05/27/2017 Blood Pressure 1: 132/72 Code: 8480-6 BMI: 28.9 Code: 14214-4 Heart Rate 1: 72 bpm Height: 5'2" SpO2: 98% Weight: 158 lbs 04/24/2017 Blood Pressure 1: 140/76 Code: 8480-6 BMI: 29.3 Code: 06808-2 Heart Rate 1: 77 bpm Height: 5'2" SpO2: 97% Weight: 160 lbs 03/27/2017 Blood Pressure 1: 128/74 Code: 8480-6 BMI: 29.1 Code: 52328-1 Heart Rate 1: 74 bpm Height: 5'2" SpO2: 98% Temperature: 36.8 (C) / 98.3 (F) Weight: 159 lbs 10/25/2016 Blood Pressure 1: 116/74 Code: 8480-6 BMI: 28.9 Code: 26943-0 Heart Rate 1: 68 bpm Height: 5'2" SpO2: 99% Weight: 158 lbs 09/20/2016 Blood Pressure 1: 116/70 Code: 8480-6 Heart Rate 1: 72 bpm Weight: 150 lbs 08/24/2016 Blood Pressure 1: 118/62 Code: 8480-6 BMI: 27.6 Code: 65912-7 Heart Rate 1: 63 bpm Height: 5'2" SpO2: 99% Weight: 151 lbs 06/12/2016 Blood Pressure 1: 122/74 Code: 8480-6 BMI: 26.9 Code: 97462-0 Heart Rate 1: 52 bpm Height: 5'2" [...] data Encounters Encounter Performer Location Codes Date 42238 EST. PATIENT, LEVEL III Diagnosis: Chronic pain syndrome[ICD10: G89.4] Diagnosis: Menopausal and female climacteric states[ICD10: N95.1] Veda Jama MD, [facility] CPT-4: 14915 10/09/2018 ([id number]) Miscellaneous no charge Diagnosis: Overweight[ICD10: E66.3] [facility], [facility] CPT-4: 59746 08/29/2018 00072 EST. PATIENT, LEVEL III Diagnosis: Generalized anxiety disorder[ICD10: F41.1] Diagnosis: Major depressive disorder, single episode, moderate[ICD10: F32.1] [facility]eda Jama MD, [facility] CPT-4: 08794 07/18/2018 ([id number]) Miscellaneous no charge Diagnosis: Overweight[ICD10: E66.3] [facility], [facility] CPT-4: 19217 07/16/2018 92171 EST. PATIENT, LEVEL III Diagnosis: Chronic pain syndrome[ICD10: G89.4] Diagnosis: Overweight[ICD10: E66.3] [facility]eda Jama MD, [facility] CPT-4: 41001 06/18/2018 32081 EST. PATIENT, LEVEL IV Diagnosis: Chronic pain syndrome[ICD10: G89.4] Diagnosis: Overweight[ICD10: E66.3] Veda Jama MD, [facility] CPT-4: 04045 02/28/2018 30224 EST. PATIENT, LEVEL III Diagnosis: Chronic pain syndrome[ICD10: G89.4] Diagnosis: Overweight[ICD10: E66.3] Veda Jama MD, [facility] CPT-4: 18155 12/09/2017 34882 EST. PATIENT, LEVEL III Diagnosis: Chronic pain syndrome[ICD10: G89.4] Diagnosis: Overweight[ICD10: E66.3] Veda Jama MD, [facility] CPT-4: 53627 10/21/2017 ([id number]) Miscellaneous no charge Diagnosis: Overweight[ICD10: E66.3] [facility], [facility] CPT-4: 57934 09/26/2017 18676 EST. PATIENT, LEVEL III Diagnosis: Chronic pain syndrome[ICD10: G89.4] Diagnosis: Overweight[ICD10: E66.3] [facility]eda Jama MD, [facility] CPT-4: 41218 08/27/2017 83724 EST. PATIENT, LEVEL III Diagnosis: Chronic pain syndrome[ICD10: G89.4] Diagnosis: Generalized anxiety disorder[ICD10: F41.1] Diagnosis: Major depressive disorder, single episode, moderate[ICD10: F32.1] Diagnosis: Cellulitis of right lower limb[ICD10: L03.115] Veda Jama MD, [facility] CPT-4: 42688 05/27/2017 ([id number]) 93126 EST. PATIENT, LEVEL IV Diagnosis: Generalized anxiety disorder[ICD10: F41.1] Diagnosis: Major depressive disorder, single episode, moderate[ICD10: F32.1] Diagnosis: Menopausal and female climacteric states[ICD10: N95.1] Diagnosis: Chronic pain syndrome[ICD10: G89.4] Veda Jama MD, [facility] CPT- 4: 05366 04/24/2017 ([id number]) PREV VISIT EST AGE 18-39 Diagnosis: Encounter for gynecological examination (general) (routine) without abnormal findings[ICD10: Z01.419] Veda Jama MD, [facility] CPT-4: 38107 03/27/2017 ([id number]) 15517 EST. PATIENT, LEVEL III Diagnosis: Overweight[ICD10: E66.3] Veda Jama MD, [facility] CPT-4: 14831 10/25/2016 ([id number]) Miscellaneous no charge Diagnosis: Overweight[ICD10: E66.3] [facility] CPT-4: 17466 09/20/2016 99213 EST. PATIENT, LEVEL IV Diagnosis: Other fatigue[ICD10: R53.83] Diagnosis: Overweight[ICD10: E66.3] Diagnosis: Generalized anxiety disorder[ICD10: F41.1] [facility] CPT-4: 46042 08/24/2016 ([id number]) OFFICE VISIT, NEW - LEVEL 4 Diagnosis: Generalized anxiety disorder[ICD10: F41.1] Diagnosis: Major depressive disorder, single episode, moderate[ICD10: F32.1] Veda Jama MD, [facility] CPT-4: 82727 06/12/2016 Plan of Care Planned Activity Notes [...] concerns. 10/09/2018 Appointment: Veda Duenas WPtel: [phone] [facility] (15 min) Moderate 10/09/2018 [...] patient. 07/18/2018 [phone] ([facility]) Moderate 07/18/2018 Patient Education: [...] for weight check. 06/18/2018 Appointment: Veda Duenastel: [address] [place], [place] [phone] (15 min) Moderate 06/18/2018 Patient Education: Patient [...] for weight check. 02/28/2018 Appointment: Veda Duenastel: [facility] (30 min) Complex 02/28/2018 Patient Education: Patient Medication Summary Completed 02/28/2018 Patient Education: Obesity Completed 02/28/2018 Appointment: Veda Duenastel: [address] [place], [place] [phone] (15 min) Moderate 02/27/2018 Visit Plan: Chronic [...] weight check. 12/09/2017 Appointment: Veda Duenastel: [facility] (15 min) Moderate 12/09/2017 [...] check. 10/21/2017 Appointment: Veda Duenas WPtel: [phone] [facility] (15 min) Moderate 10/21/2017 Patient Education: Patient Medication Summary Completed 10/21/2017 Patient Education: Obesity Completed 10/21/2017 Appointment: Nurse Visit 09/26/2017 Patient Education: Patient Medication Summary Completed 09/26/2017 Appointment: Veda Duenas WPtel: [facility] (30 min) Complex 08/30/2017 Visit Plan: Chronic [...] warmth, discharge. 05/27/2017 Appointment: Veda Duenas WPtel: [facility] (30 min) Complex 05/27/2017 [...] new RX. 04/24/2017 Appointment: Veda Duenas WPtel: [address] [place], [place] [address] (30 min) [facility] 04/24/2017 Patient Education: Patient Medication Summary Completed [...] pharmacy. 03/27/2017 Appointment: Veda Duenas WPtel: [facility] [facility] 03/27/2017 Patient Education: Patient Medication Summary Completed 03/27/2017 Care Plan: BMI Above normal followup SELF-MGMT EDUC & TRAIN 1 PT Pending 11/07/2016 Visit Plan: Obesity - chronic issue with this patient. The pt has been counseled about diet changes, calorie restriction, and need to exercise. Pt will RTC in one month for weight check. 10/25/2016 Appointment: Veda Duenas WPtel: [facility] (15 min) Moderate 10/25/2016 Patient [...] weight check. 08/24/2016 Appointment: Radha Mcgowan WPtel: [address] [place], [place] [phone] (30 min) Complex 08/24/2016 Appointment: Radha Mcgowan WPtel: [address] [place], [place] [phone] (30 min) Complex 08/24/2016 Appointment: Radha Mcgowan WPtel: [address] [place], [place] [phone] (30 min) Complex 08/24/2016 Patient Education: Patient [...] this patient. 06/12/2016 Appointment: Rad[facility] Mcgowan [facility]Ptel[phone] New Patient 06/12/2016 Patient Education: Patient [...]
--- OUTSIDE RECORDS SUMMARY | 2019-07-01 06:43 | XMS REPORT | CCD ---
Author Author Veda Duenas Organization [facility] Address [address] [place] [address] Phone Care Team Providers Care Actionscript Developer Name Role Phone PP Unavailable CCM Unavailable Summary Purpose Interface Exchange Insurance Providers Payer name Policy type / Coverage type Covered constitution party ID Effective Begin Date Effective End Date Blue Cross [facility] Blue Cross/[id number] Unknown Family history Father Diagnosis Age At Onset Diabetes Unknown Hyperlipidemia Unknown Hypertension Unknown Heart Attack Unknown Social History Social History Element Codes Description Effective Dates Marital status Unknown CJ 06/12/2016 Number of children Unknown 3 06/12/[address]: 244506427 Never smoker 06/12/[address]: 374651243 Never drinks alcohol 06/12/2016 Allergies, Adverse Reactions, [...] hydrocodone 5 mg-acetaminophen 325 mg tablet RxNorm: 177558 1-1.5 Tablet(s) PO QID as needed 11/06/2018 12/05/2018 Active Lyrica 100 mg capsule RxNorm: 913426 1 Capsule(s) PO BID as needed 10/31/2018 01/28/2019 Active pravastatin 20 mg tablet RxNorm: 380932 1 Tablet(s) PO QPM 10/28/2018 02/24/2019 Active pravastatin 20 mg tablet RxNorm: 368228 1 Tablet(s) PO QPM 10/28/2018 10/27/2018 Inactive EEMT 1.25 mg-2.5 mg tablet RxNorm: 573449 1 Tablet(s) PO daily 10/09/2018 01/06/2019 Active norethindrone acetate 1 mg-ethinyl estradiol 20 mcg tablet RxNorm: 4160696 1 Tablet(s) PO daily 10/09/2018 10/03/2019 Active hydrocodone 5 mg-acetaminophen 325 mg tablet RxNorm: 513735 1-1.5 Tablet(s) PO QID as needed 10/09/2018 11/05/2018 Inactive hydrocodone 5 mg-acetaminophen 325 mg tablet RxNorm: 968907 1-1.5 Tablet(s) PO QID as needed 09/11/2018 10/08/2018 Inactive phentermine 37.5 mg tablet RxNorm: 230317 1 Tablet(s) PO daily 08/29/2018 No Stop Date Active cyclobenzaprine 5 mg tablet RxNorm: 155965 TAKE ONE TABLET BY MOUTH THREE TIMES DAILY NEEDED FOR MUSCLE SPASM 08/27/2018 No Stop Date Active hydrocodone 5 mg-acetaminophen 325 mg tablet RxNorm: 684738 1-1.5 Tablet(s) PO QID as needed 08/14/2018 09/10/2018 Inactive Lexapro 10 mg tablet RxNorm: 468868 1 Tablet(s) PO daily 07/18/2018 08/16/2018 Inactive diazepam 10 mg tablet RxNorm: 224013 1 Tablet(s) PO TID as needed anxiety 07/11/2018 07/14/2018 Inactive Zorvolex 35 mg capsule RxNorm: 5586958 1 Capsule(s) PO TID 06/18/2018 No Stop Date Active hydrocodone 5 mg-acetaminophen 325 mg tablet RxNorm: 946210 1-1.5 Tablet(s) PO QID as needed 06/18/2018 07/17/2018 Inactive cyclobenzaprine 5 mg tablet RxNorm: 384853 TAKE ONE TABLET BY MOUTH THREE TIMES DAILY NEEDED FOR MUSCLE SPASM 06/04/2018 08/26/2018 Inactive hydrocodone 5 mg-acetaminophen 325 mg tablet RxNorm: 453882 1-1.5 Tablet(s) PO QID as needed 05/26/2018 06/17/2018 Inactive cyclobenzaprine 5 mg tablet RxNorm: 018448 TAKE ONE TABLET BY MOUTH THREE TIMES DAILY NEEDED FOR MUSCLE SPASM 05/07/2018 06/03/2018 Inactive ibuprofen 800 mg tablet RxNorm: 650098 TAKE ONE TABLET BY MOUTH THREE TIMES DAILY NEEDED 04/28/2018 No Stop Date Active hydrocodone 5 mg-acetaminophen 325 mg tablet RxNorm: 644241 1-1.5 Tablet(s) PO QID as needed 04/28/2018 05/25/2018 Inactive diazepam 10 mg tablet RxNorm: 117322 1 Tablet(s) PO TID as needed anxiety 04/22/2018 06/19/2018 Inactive hydrocodone 5 mg-acetaminophen 325 mg tablet RxNorm: 739530 1-1.5 Tablet(s) PO QID as needed 03/25/2018 04/23/2018 Inactive cyclobenzaprine 5 mg tablet RxNorm: 374204 TAKE ONE TABLET BY MOUTH THREE TIMES DAILY NEEDED FOR MUSCLE SPASM 03/17/2018 05/06/2018 Inactive hydrocodone 5 mg-acetaminophen 325 mg tablet RxNorm: 347519 1-1.5 Tablet(s) PO QID as needed 03/02/2018 03/24/2018 Inactive phentermine 37.5 mg tablet RxNorm: 093986 1 Tablet(s) PO daily 03/02/2018 08/28/2018 Inactive hydrocodone 5 mg-acetaminophen 325 mg tablet RxNorm: 460970 1-1.5 Tablet(s) PO QID as needed 02/03/2018 03/01/2018 Inactive diazepam 10 mg tablet RxNorm: 026911 1 Tablet(s) PO TID as needed anxiety 01/01/2018 02/28/2018 Inactive hydrocodone 5 mg-acetaminophen 325 mg tablet RxNorm: 471108 1-1.5 Tablet(s) PO QID as needed 12/09/2017 01/07/2018 Inactive ibuprofen 800 mg tablet RxNorm: 368899 1 Tablet(s) PO TID as needed 12/09/2017 01/07/2018 Inactive Lyrica 100 mg capsule RxNorm: 072549 1 Capsule(s) PO BID as needed 12/09/2017 03/07/2018 Inactive cyclobenzaprine 5 mg tablet RxNorm: 226982 TAKE ONE TABLET BY MOUTH THREE TIMES DAILY NEEDED FOR MUSCLE SPASM 12/03/2017 03/16/2018 Inactive hydrocodone 5 mg-acetaminophen 325 mg tablet RxNorm: 539843 1-1.5 Tablet(s) PO QID as needed 10/21/2017 11/19/2017 Inactive hydrocodone 7.5 mg-acetaminophen 325 mg tablet RxNorm: 962356 1 Tablet(s) PO QID as needed 09/26/2017 10/20/2017 Inactive phentermine 37.5 mg tablet RxNorm: 629458 1 Tablet(s) PO daily 09/26/2017 10/01/2017 Inactive Lyrica 100 mg capsule RxNorm: 890225 1 Capsule(s) PO BID as needed 09/12/2017 12/08/2017 Inactive hydrocodone 7.5 mg-acetaminophen 325 mg tablet RxNorm: 345050 1 Tablet(s) PO QID as needed 08/27/2017 09/23/2017 Inactive Belviq XR 20 mg tablet,extended release RxNorm: 7345820 1 Tablet(s) PO daily 08/27/2017 09/23/2017 Inactive cyclobenzaprine 5 mg tablet RxNorm: 807987 1 Tablet(s) PO TID as needed muscle spasms 08/19/2017 08/23/2017 Inactive hydrocodone 7.5 mg-acetaminophen 325 mg tablet RxNorm: 926788 1 Tablet(s) PO QID as needed 08/02/2017 08/26/2017 Inactive hydrocodone 7.5 mg-acetaminophen 325 mg tablet RxNorm: 883439 1 Tablet(s) PO TID as needed 08/02/2017 08/01/2017 Inactive diazepam 10 mg tablet RxNorm: 795468 1 Tablet(s) PO TID as needed anxiety 07/24/2017 02/02/2018 Inactive hydrocodone 7.5 mg-acetaminophen 325 mg tablet RxNorm: 472047 1 Tablet(s) PO TID as needed 07/11/2017 08/01/2017 Inactive Lyrica 100 mg capsule RxNorm: 882349 1 Capsule(s) PO BID as needed 06/24/2017 09/20/2017 Inactive hydrocodone 5 mg-acetaminophen 325 mg tablet RxNorm: 124310 1 Tablet(s) PO TID 06/24/2017 07/30/2017 Inactive prednisone 10 mg tablet RxNorm: 018921 1 Tablet(s) PO daily 06/18/2017 06/17/2017 Inactive 6-5-4-3-2-1 then stop prednisone 10 mg tablet RxNorm: 900841 1 Tablet(s) PO daily 06/18/2017 08/25/2017 Inactive 6-5-4-3-2-1 then stop Bactrim DS 800 mg-160 mg tablet RxNorm: 288593 1 Tablet(s) PO BID 06/11/2017 06/14/2017 Inactive Bactrim DS 800 mg-160 mg tablet RxNorm: 206208 1 Tablet(s) PO BID 06/03/2017 06/10/2017 Inactive mupirocin 2 % topical ointment RxNorm: 146514 1 Application TOP BID 06/03/2017 08/25/2017 Inactive Lyrica 100 mg capsule RxNorm: 318567 1 Capsule(s) PO BID as needed 05/27/2017 06/23/2017 Inactive Keflex 500 mg capsule RxNorm: 327552 1 Capsule(s) PO TID 05/27/2017 06/02/2017 Inactive Lexapro 10 mg tablet RxNorm: 390513 1 Tablet(s) PO daily 05/27/2017 08/25/2017 Inactive hydrocodone 5 mg-acetaminophen 325 mg tablet RxNorm: 963494 1 Tablet(s) PO TID 05/27/2017 06/23/2017 Inactive hydrocodone 7.5 mg-acetaminophen 325 mg tablet RxNorm: 683737 1 Tablet(s) PO TID as needed 05/13/2017 05/25/2017 Inactive hydrocodone 7.5 mg-acetaminophen 325 mg tablet RxNorm: 234683 1 Tablet(s) PO TID as needed 05/13/2017 05/12/2017 Inactive cyclobenzaprine 5 mg tablet RxNorm: 125587 TAKE ONE TABLET BY MOUTH THREE TIMES DAILY NEEDED FOR MUSCLE SPASM 05/01/2017 05/05/2017 Inactive hydrocodone 5 mg-acetaminophen 325 mg tablet RxNorm: 936033 1 Tablet(s) PO TID as needed 04/24/2017 05/12/2017 Inactive cyclobenzaprine 5 mg tablet RxNorm: 417804 1 Tablet(s) PO TID as needed muscle spasms 04/24/2017 04/28/2017 Inactive diazepam 10 mg tablet RxNorm: 103504 1 Tablet(s) PO TID as needed anxiety 02/22/2017 04/19/2017 Inactive norethindrone acetate 1 mg-ethinyl estradiol 20 mcg tablet RxNorm: 5919867 1 Tablet(s) PO daily 12/18/2016 07/15/2017 Inactive EEMT 1.25 mg-2.5 mg tablet RxNorm: 600464 1 Tablet(s) PO daily 12/06/2016 03/05/2017 Inactive EEMT 1.25 mg-2.5 mg tablet RxNorm: 237971 1 Tablet(s) PO daily 12/06/2016 12/05/2016 Inactive Lexapro 10 mg tablet RxNorm: 889833 1 Tablet(s) PO daily 12/06/2016 05/04/2017 Inactive diazepam 10 mg tablet RxNorm: 831023 1 Tablet(s) PO TID 11/09/2016 12/07/2016 Inactive phentermine 37.5 mg tablet RxNorm: 352989 1 Tablet(s) PO daily 10/25/2016 08/23/2017 Inactive EEMT 1.25 mg-2.5 mg tablet RxNorm: 987036 1 Tablet(s) PO daily 10/25/2016 12/05/2016 Inactive phentermine 37.5 mg tablet RxNorm: 165921 1 Tablet(s) PO daily 09/20/2016 10/24/2016 Inactive Lexapro 10 mg tablet RxNorm: 291119 1 Tablet(s) PO daily 07/10/2016 12/05/2016 Inactive Lexapro 10 mg tablet RxNorm: 846731 1 Tablet(s) PO daily 06/12/2016 07/09/2016 Inactive norethindrone acetate 1 mg-ethinyl estradiol 20 mcg tablet RxNorm: 0709045 1 Tablet(s) PO daily 06/12/2016 12/17/2016 Inactive hydrocodone 10 mg-acetaminophen 325 mg tablet RxNorm: 132831 1 Tablet(s) PO TID No Start Date 05/12/2017 Inactive phentermine 37.5 mg tablet RxNorm: 217280 1 Tablet(s) PO daily No Start Date 09/19/2016 Inactive norethindrone acetate 1 mg-ethinyl estradiol 20 mcg tablet RxNorm: 3733775 1 Tablet(s) PO daily No Start Date 06/11/2016 Inactive EEMT 1.25 mg-2.5 mg tablet RxNorm: 633266 1 Tablet(s) PO daily No Start Date [...] 1: 128/74 Code: 8480-6 BMI: 31.1 Code: 52644-2 Heart Rate 1: 81 bpm Height: 5'2" SpO2: 97% Weight: 170 lbs 08/29/2018 Blood Pressure 1: 120/70 Code: 8480-6 BMI: 31.1 Code: 54949-7 Heart Rate 1: 65 bpm Height: 5'2" Weight: 170 lbs 07/18/2018 Blood Pressure 1: 126/88 Code: 8480-6 Heart Rate 1: 78 bpm Height: SpO2: 97% Weight: 07/16/2018 Blood Pressure 1: 130/78 Code: 8480-6 Heart Rate 1: 84 bpm Weight: 172 lbs 06/18/2018 Blood Pressure 1: 128/80 Code: 8480-6 BMI: 31.1 Code: 52165-0 Heart Rate 1: 80 bpm Height: 5'2" SpO2: 97% Weight: 170 lbs 02/28/2018 Blood Pressure 1: 120/78 Code: 8480-6 BMI: 31.6 Code: 45849-8 Heart Rate 1: 66 bpm Height: 5'2" SpO2: 98% Weight: 173 lbs 12/09/2017 Blood Pressure 1: 116/74 Code: 8480-6 BMI: 31.5 Code: 67276-4 Heart Rate 1: 74 bpm Height: 5'2" SpO2: 95% Weight: 172 lbs 10/21/2017 Blood Pressure 1: 136/82 Code: 8480-6 BMI: 30.4 Code: 63747-3 Heart Rate 1: 79 bpm Height: 5'2" SpO2: 97% Weight: 166 lbs 09/26/2017 Blood Pressure 1: 122/80 Code: 8480-6 BMI: 30.4 Code: 56940-1 Heart Rate 1: 63 bpm Height: 5'2" SpO2: 98% Weight: 166 lbs 08/27/2017 Blood Pressure 1: 132/70 Code: 8480-6 BMI: 30.7 Code: 35776-2 Heart Rate 1: 89 bpm Height: 5'2" SpO2: 98% Weight: 168 lbs 05/27/2017 Blood Pressure 1: 132/72 Code: 8480-6 BMI: 28.9 Code: 31125-0 Heart Rate 1: 72 bpm Height: 5'2" SpO2: 98% Weight: 158 lbs 04/24/2017 Blood Pressure 1: 140/76 Code: 8480-6 BMI: 29.3 Code: 55500-5 Heart Rate 1: 77 bpm Height: 5'2" SpO2: 97% Weight: 160 lbs 03/27/2017 Blood Pressure 1: 128/74 Code: 8480-6 BMI: 29.1 Code: 47045-0 Heart Rate 1: 74 bpm Height: 5'2" SpO2: 98% Temperature: 36.8 (C) / 98.3 (F) Weight: 159 lbs 10/25/2016 Blood Pressure 1: 116/74 Code: 8480-6 BMI: 28.9 Code: 13715-9 Heart Rate 1: 68 bpm Height: 5'2" SpO2: 99% Weight: 158 lbs 09/20/2016 Blood Pressure 1: 116/70 Code: 8480-6 Heart Rate 1: 72 bpm Weight: 150 lbs 08/24/2016 Blood Pressure 1: 118/62 Code: 8480-6 BMI: 27.6 Code: 85636-4 Heart Rate 1: 63 bpm Height: 5'2" SpO2: 99% Weight: 151 lbs 06/12/2016 Blood Pressure 1: 122/74 Code: 8480-6 BMI: 26.9 Code: 64119-8 Heart Rate 1: 52 bpm Height: 5'2" [...] data Encounters Encounter Performer Location Codes Date 20455 EST. PATIENT, LEVEL III Diagnosis: Chronic pain syndrome[ICD10: G89.4] Diagnosis: Menopausal and female climacteric states[ICD10: N95.1] Veda Jama MD, [facility] CPT-4: 15174 10/09/2018 ([id number]) Miscellaneous no charge Diagnosis: Overweight[ICD10: E66.3] [facility], [facility] CPT-4: 58946 08/29/2018 30572 EST. PATIENT, LEVEL III Diagnosis: Generalized anxiety disorder[ICD10: F41.1] Diagnosis: Major depressive disorder, single episode, moderate[ICD10: F32.1] Veda Jama MD, [facility] CPT-4: 05569 07/18/2018 ([id number]) Miscellaneous no charge Diagnosis: Overweight[ICD10: E66.3] [facility], [facility] CPT-4: 24462 07/16/2018 04181 EST. PATIENT, LEVEL III Diagnosis: Chronic pain syndrome[ICD10: G89.4] Diagnosis: Overweight[ICD10: E66.3] Veda Jama MD, [facility] CPT-4: 50298 06/18/2018 06226 EST. PATIENT, LEVEL IV Diagnosis: Chronic pain syndrome[ICD10: G89.4] Diagnosis: Overweight[ICD10: E66.3] Veda Jama MD, [facility] CPT-4: 57011 02/28/2018 77022 EST. PATIENT, LEVEL III Diagnosis: Chronic pain syndrome[ICD10: G89.4] Diagnosis: Overweight[ICD10: E66.3] Veda Jama MD, [facility] CPT-4: 51428 12/09/2017 14965 EST. PATIENT, LEVEL III Diagnosis: Chronic pain syndrome[ICD10: G89.4] Diagnosis: Overweight[ICD10: E66.3] Veda Jama MD, [facility] CPT-4: 19839 10/21/2017 ([id number]) Miscellaneous no charge Diagnosis: Overweight[ICD10: E66.3] [facility], [facility] CPT-4: 48994 09/26/2017 55990 EST. PATIENT, LEVEL III Diagnosis: Chronic pain syndrome[ICD10: G89.4] Diagnosis: Overweight[ICD10: E66.3] Veda Jama MD, [facility] CPT-4: 74176 08/27/2017 35439 EST. PATIENT, LEVEL III Diagnosis: Chronic pain syndrome[ICD10: G89.4] Diagnosis: Generalized anxiety disorder[ICD10: F41.1] Diagnosis: Major depressive disorder, single episode, moderate[ICD10: F32.1] Diagnosis: Cellulitis of right lower limb[ICD10: L03.115] Veda Jama MD, [facility] CPT-4: 76158 05/27/2017 ([id number]) 27410 EST. PATIENT, LEVEL IV Diagnosis: Generalized anxiety disorder[ICD10: F41.1] Diagnosis: Major depressive disorder, single episode, moderate[ICD10: F32.1] Diagnosis: Menopausal and female climacteric states[ICD10: N95.1] Diagnosis: Chronic pain syndrome[ICD10: G89.4] Veda Jama MD, [facility] CPT- 4: 78083 04/24/2017 ([id number]) PREV VISIT EST AGE 18-39 Diagnosis: Encounter for gynecological examination (general) (routine) without abnormal findings[ICD10: Z01.419] Veda Jama MD, [facility] CPT-4: 98392 03/27/2017 ([id number]) 10753 EST. PATIENT, LEVEL III Diagnosis: Overweight[ICD10: E66.3] Veda Jama MD, [facility] CPT-4: 47327 10/25/2016 ([id number]) Miscellaneous no charge Diagnosis: Overweight[ICD10: E66.3] Radha Jama MD, [facility] CPT-4: 67614 09/20/2016 98091 EST. PATIENT, LEVEL IV Diagnosis: Other fatigue[ICD10: R53.83] Diagnosis: Overweight[ICD10: E66.3] Diagnosis: Generalized anxiety disorder[ICD10: F41.1] Veda Jama MD, [facility] CPT-4: 16421 08/24/2016 ([id number]) OFFICE VISIT, NEW - LEVEL 4 Diagnosis: Generalized anxiety disorder[ICD10: F41.1] Diagnosis: Major depressive disorder, single episode, moderate[ICD10: F32.1] [facility] CPT-4: 98800 06/12/2016 Plan of Care Planned Activity Notes [...] concerns. 10/09/2018 Appointment: Veda Du[phone] [facility] (15 min) Moderate 10/09/2018 Patient Education: Patient [...] patient. 07/18/2018 Appointment: Veda Duenas [facility]el[phone] [facility] (15 min) Moderate 07/18/2018 Patient Education: Patient [...] weight check. 06/18/2018 Appointment: Veda Duenas WPtel: [phone] [facility] (15 min) Moderate 06/18/2018 Patient Education: [...] weight check. 02/28/2018 Appointment: Veda Duenas WPtel: [phone] [facility] (30 min) Complex 02/28/2018 Patient Education: Patient Medication Summary Completed 02/28/2018 Patient Education: Obesity Completed 02/28/2018 Appointment: Veda Duenas WPtel: [facility] (15 min) Moderate 02/27/2018 [...] weight check. 12/09/2017 Appointment: Veda Duenas WPtel: [facility] (15 min) Moderate 12/09/2017 Patient Education: [...] weight check. 10/21/2017 Appointment: Veda Duenas WPtel: [facility] (15 min) Moderate 10/21/2017 Patient Education: Patient Medication Summary Completed 10/21/2017 Patient Education: Obesity Completed 10/21/2017 Appointment: Nurse Visit 09/26/2017 Patient Education: Patient Medication Summary Completed 09/26/2017 Appointment: Veda Duenas WPtel: [address] [place], [place] [phone] (30 min) Complex 08/30/2017 Visit Plan: Chronic [...] warmth, discharge. 05/27/2017 Appointment: Veda Duenas WPtel: [facility]5 [facility] (30 min) Complex 05/27/2017 Patient Education: [...] new RX. 04/24/2017 Appointment: Veda Duenas WPtel: [address] [place], [place] [id number] (30 min) Complex 04/24/2017 Patient Education: Patient [...] per pharmacy. 03/27/2017 Appointment: Veda Duenas WPtel: [facility] [place] [address] 03/27/2017 Patient Education: Patient Medication Summary Completed 03/27/2017 Care Plan: BMI Above normal followup SELF-MGMT EDUC & TRAIN 1 PT Pending 11/07/2016 Visit Plan: Obesity - chronic issue with this patient. The pt has been counseled about diet changes, calorie restriction, and need to exercise. Pt will RTC in one month for weight check. 10/25/2016 Appointment: Veda Duenas WPtel: [address] [place] [address] (15 min) Moderate 10/25/2016 Patient Education: Patient [...] weight check. 08/24/2016 Appointment: Radha Mcgowan WPtel: [address] [place], [place] [phone] [place] [address] (30 min) Complex 08/24/2016 Appointment: Radha Mcgowan WPtel: [address] [place], [place] [phone] [place] [address] (30 min) Complex 08/24/2016 Appointment: Radha Mcgowan WPtel: [address] [place], [place] [phone] [place] [address] (30 min) Complex 08/24/2016 Patient Education: Patient [...] this patient. 06/12/2016 Appointment: Radha Mcgowan WPtel: [phone] [phone] New Patient 06/12/2016 Patient Education: Patient Medication [...]
--- OUTSIDE RECORDS SUMMARY | 2019-07-01 06:44 | XMS REPORT | CCD ---
Author Author Veda Duenas Organization [facility] Address [address] [place] [address] Phone Care Team Providers Care Greeting Card Writer Name Role Phone PP Unavailable CCM Unavailable Summary Purpose Interface Exchange Insurance Providers Payer name Policy type / Coverage type Covered constitution party ID Effective Begin Date Effective End Date Blue Cross [facility] Blue Cross/[id number] Unknown Family history Father Diagnosis Age At Onset Diabetes Unknown Hyperlipidemia Unknown Hypertension Unknown Heart Attack Unknown Social History Social History Element Codes Description Effective Dates Marital status Unknown CJ 06/12/2016 Number of children Unknown 3 06/12/[address]: 717260920 Never smoker 06/12/[address]: 322020309 Never drinks alcohol 06/12/2016 Allergies, Adverse Reactions, [...] Fill Instructions Lyrica 100 mg capsule RxNorm: 604775 1 Capsule(s) PO BID as needed 10/31/2018 01/28/2019 Active pravastatin 20 mg tablet RxNorm: 401211 1 Tablet(s) PO QPM 10/28/2018 02/24/2019 Active pravastatin 20 mg tablet RxNorm: 951213 1 Tablet(s) PO QPM 10/28/2018 10/27/2018 Inactive EEMT 1.25 mg-2.5 mg tablet RxNorm: 165795 1 Tablet(s) PO daily 10/09/2018 01/06/2019 Active norethindrone acetate 1 mg-ethinyl estradiol 20 mcg tablet RxNorm: 4799469 1 Tablet(s) PO daily 10/09/2018 10/03/2019 Active hydrocodone 5 mg-acetaminophen 325 mg tablet RxNorm: 200657 1-1.5 Tablet(s) PO QID as needed 10/09/2018 11/07/2018 Active hydrocodone 5 mg-acetaminophen 325 mg tablet RxNorm: 506926 1-1.5 Tablet(s) PO QID as needed 09/11/2018 10/08/2018 Inactive phentermine 37.5 mg tablet RxNorm: 395420 1 Tablet(s) PO daily 08/29/2018 No Stop Date Active cyclobenzaprine 5 mg tablet RxNorm: 453672 TAKE ONE TABLET BY MOUTH THREE TIMES DAILY NEEDED FOR MUSCLE SPASM 08/27/2018 No Stop Date Active hydrocodone 5 mg-acetaminophen 325 mg tablet RxNorm: 653250 1-1.5 Tablet(s) PO QID as needed 08/14/2018 09/10/2018 Inactive Lexapro 10 mg tablet RxNorm: 523331 1 Tablet(s) PO daily 07/18/2018 08/16/2018 Inactive diazepam 10 mg tablet RxNorm: 043286 1 Tablet(s) PO TID as needed anxiety 07/11/2018 07/14/2018 Inactive Zorvolex 35 mg capsule RxNorm: 4025338 1 Capsule(s) PO TID 06/18/2018 No Stop Date Active hydrocodone 5 mg-acetaminophen 325 mg tablet RxNorm: 241381 1-1.5 Tablet(s) PO QID as needed 06/18/2018 07/17/2018 Inactive cyclobenzaprine 5 mg tablet RxNorm: 470914 TAKE ONE TABLET BY MOUTH THREE TIMES DAILY NEEDED FOR MUSCLE SPASM 06/04/2018 08/26/2018 Inactive hydrocodone 5 mg-acetaminophen 325 mg tablet RxNorm: 035795 1-1.5 Tablet(s) PO QID as needed 05/26/2018 06/17/2018 Inactive cyclobenzaprine 5 mg tablet RxNorm: 541354 TAKE ONE TABLET BY MOUTH THREE TIMES DAILY NEEDED FOR MUSCLE SPASM 05/07/2018 06/03/2018 Inactive ibuprofen 800 mg tablet RxNorm: 554873 TAKE ONE TABLET BY MOUTH THREE TIMES DAILY NEEDED 04/28/2018 No Stop Date Active hydrocodone 5 mg-acetaminophen 325 mg tablet RxNorm: 063854 1-1.5 Tablet(s) PO QID as needed 04/28/2018 05/25/2018 Inactive diazepam 10 mg tablet RxNorm: 576305 1 Tablet(s) PO TID as needed anxiety 04/22/2018 06/19/2018 Inactive hydrocodone 5 mg-acetaminophen 325 mg tablet RxNorm: 387491 1-1.5 Tablet(s) PO QID as needed 03/25/2018 04/23/2018 Inactive cyclobenzaprine 5 mg tablet RxNorm: 016494 TAKE ONE TABLET BY MOUTH THREE TIMES DAILY NEEDED FOR MUSCLE SPASM 03/17/2018 05/06/2018 Inactive hydrocodone 5 mg-acetaminophen 325 mg tablet RxNorm: 331563 1-1.5 Tablet(s) PO QID as needed 03/02/2018 03/24/2018 Inactive phentermine 37.5 mg tablet RxNorm: 930236 1 Tablet(s) PO daily 03/02/2018 08/28/2018 Inactive hydrocodone 5 mg-acetaminophen 325 mg tablet RxNorm: 031495 1-1.5 Tablet(s) PO QID as needed 02/03/2018 03/01/2018 Inactive diazepam 10 mg tablet RxNorm: 048532 1 Tablet(s) PO TID as needed anxiety 01/01/2018 02/28/2018 Inactive hydrocodone 5 mg-acetaminophen 325 mg tablet RxNorm: 146421 1-1.5 Tablet(s) PO QID as needed 12/09/2017 01/07/2018 Inactive ibuprofen 800 mg tablet RxNorm: 585681 1 Tablet(s) PO TID as needed 12/09/2017 01/07/2018 Inactive Lyrica 100 mg capsule RxNorm: 708953 1 Capsule(s) PO BID as needed 12/09/2017 03/07/2018 Inactive cyclobenzaprine 5 mg tablet RxNorm: 839228 TAKE ONE TABLET BY MOUTH THREE TIMES DAILY NEEDED FOR MUSCLE SPASM 12/03/2017 03/16/2018 Inactive hydrocodone 5 mg-acetaminophen 325 mg tablet RxNorm: 639879 1-1.5 Tablet(s) PO QID as needed 10/21/2017 11/19/2017 Inactive hydrocodone 7.5 mg-acetaminophen 325 mg tablet RxNorm: 751524 1 Tablet(s) PO QID as needed 09/26/2017 10/20/2017 Inactive phentermine 37.5 mg tablet RxNorm: 003128 1 Tablet(s) PO daily 09/26/2017 10/01/2017 Inactive Lyrica 100 mg capsule RxNorm: 191136 1 Capsule(s) PO BID as needed 09/12/2017 12/08/2017 Inactive hydrocodone 7.5 mg-acetaminophen 325 mg tablet RxNorm: 026118 1 Tablet(s) PO QID as needed 08/27/2017 09/23/2017 Inactive Belviq XR 20 mg tablet,extended release RxNorm: 7170572 1 Tablet(s) PO daily 08/27/2017 09/23/2017 Inactive cyclobenzaprine 5 mg tablet RxNorm: 747234 1 Tablet(s) PO TID as needed muscle spasms 08/19/2017 08/23/2017 Inactive hydrocodone 7.5 mg-acetaminophen 325 mg tablet RxNorm: 109770 1 Tablet(s) PO QID as needed 08/02/2017 08/26/2017 Inactive hydrocodone 7.5 mg-acetaminophen 325 mg tablet RxNorm: 841957 1 Tablet(s) PO TID as needed 08/02/2017 08/01/2017 Inactive diazepam 10 mg tablet RxNorm: 255540 1 Tablet(s) PO TID as needed anxiety 07/24/2017 02/02/2018 Inactive hydrocodone 7.5 mg-acetaminophen 325 mg tablet RxNorm: 432487 1 Tablet(s) PO TID as needed 07/11/2017 08/01/2017 Inactive Lyrica 100 mg capsule RxNorm: 485222 1 Capsule(s) PO BID as needed 06/24/2017 09/20/2017 Inactive hydrocodone 5 mg-acetaminophen 325 mg tablet RxNorm: 741566 1 Tablet(s) PO TID 06/24/2017 07/30/2017 Inactive prednisone 10 mg tablet RxNorm: 919193 1 Tablet(s) PO daily 06/18/2017 06/17/2017 Inactive 6-5-4-3-2-1 then stop prednisone 10 mg tablet RxNorm: 853898 1 Tablet(s) PO daily 06/18/2017 08/25/2017 Inactive 6-5-4-3-2-1 then stop Bactrim DS 800 mg-160 mg tablet RxNorm: 607864 1 Tablet(s) PO BID 06/11/2017 06/14/2017 Inactive Bactrim DS 800 mg-160 mg tablet RxNorm: 634441 1 Tablet(s) PO BID 06/03/2017 06/10/2017 Inactive mupirocin 2 % topical ointment RxNorm: 384923 1 Application TOP BID 06/03/2017 08/25/2017 Inactive Lyrica 100 mg capsule RxNorm: 101919 1 Capsule(s) PO BID as needed 05/27/2017 06/23/2017 Inactive Keflex 500 mg capsule RxNorm: 872541 1 Capsule(s) PO TID 05/27/2017 06/02/2017 Inactive Lexapro 10 mg tablet RxNorm: 851541 1 Tablet(s) PO daily 05/27/2017 08/25/2017 Inactive hydrocodone 5 mg-acetaminophen 325 mg tablet RxNorm: 797370 1 Tablet(s) PO TID 05/27/2017 06/23/2017 Inactive hydrocodone 7.5 mg-acetaminophen 325 mg tablet RxNorm: 472249 1 Tablet(s) PO TID as needed 05/13/2017 05/25/2017 Inactive hydrocodone 7.5 mg-acetaminophen 325 mg tablet RxNorm: 010557 1 Tablet(s) PO TID as needed 05/13/2017 05/12/2017 Inactive cyclobenzaprine 5 mg tablet RxNorm: 994465 TAKE ONE TABLET BY MOUTH THREE TIMES DAILY NEEDED FOR MUSCLE SPASM 05/01/2017 05/05/2017 Inactive hydrocodone 5 mg-acetaminophen 325 mg tablet RxNorm: 327607 1 Tablet(s) PO TID as needed 04/24/2017 05/12/2017 Inactive cyclobenzaprine 5 mg tablet RxNorm: 859527 1 Tablet(s) PO TID as needed muscle spasms 04/24/2017 04/28/2017 Inactive diazepam 10 mg tablet RxNorm: 195849 1 Tablet(s) PO TID as needed anxiety 02/22/2017 04/19/2017 Inactive norethindrone acetate 1 mg-ethinyl estradiol 20 mcg tablet RxNorm: 9232493 1 Tablet(s) PO daily 12/18/2016 07/15/2017 Inactive EEMT 1.25 mg-2.5 mg tablet RxNorm: 381274 1 Tablet(s) PO daily 12/06/2016 03/05/2017 Inactive EEMT 1.25 mg-2.5 mg tablet RxNorm: 252048 1 Tablet(s) PO daily 12/06/2016 12/05/2016 Inactive Lexapro 10 mg tablet RxNorm: 333219 1 Tablet(s) PO daily 12/06/2016 05/04/2017 Inactive diazepam 10 mg tablet RxNorm: 962038 1 Tablet(s) PO TID 11/09/2016 12/07/2016 Inactive phentermine 37.5 mg tablet RxNorm: 007658 1 Tablet(s) PO daily 10/25/2016 08/23/2017 Inactive EEMT 1.25 mg-2.5 mg tablet RxNorm: 350892 1 Tablet(s) PO daily 10/25/2016 12/05/2016 Inactive phentermine 37.5 mg tablet RxNorm: 069901 1 Tablet(s) PO daily 09/20/2016 10/24/2016 Inactive Lexapro 10 mg tablet RxNorm: 021597 1 Tablet(s) PO daily 07/10/2016 12/05/2016 Inactive Lexapro 10 mg tablet RxNorm: 577608 1 Tablet(s) PO daily 06/12/2016 07/09/2016 Inactive norethindrone acetate 1 mg-ethinyl estradiol 20 mcg tablet RxNorm: 2437085 1 Tablet(s) PO daily 06/12/2016 12/17/2016 Inactive hydrocodone 10 mg-acetaminophen 325 mg tablet RxNorm: 397845 1 Tablet(s) PO TID No Start Date 05/12/2017 Inactive phentermine 37.5 mg tablet RxNorm: 541238 1 Tablet(s) PO daily No Start Date 09/19/2016 Inactive norethindrone acetate 1 mg-ethinyl estradiol 20 mcg tablet RxNorm: 3892829 1 Tablet(s) PO daily No Start Date 06/11/2016 Inactive EEMT 1.25 mg-2.5 mg tablet RxNorm: 702657 1 Tablet(s) PO daily No Start Date 10/24/2016 Inactive Medication Administered No Medication Administered data Immunizations No Immunization data Assessments Condition Codes Effective Dates Chronic pain syndrome ICD-10: G89.4 ICD-9: 338.4 10/09/2018 Menopausal and female climacteric states ICD-10: N95.1 ICD-9: 627.2 10/09/2018 Overweight ICD-10: E66.3 ICD-9: 278.02 08/29/2018 Major depressive disorder, single episode, moderate ICD-10: F32.1 ICD-9: 296.22 07/18/2018 Generalized anxiety disorder ICD-10: F41.1 ICD-9: 300.02 07/18/2018 Cellulitis of right lower limb ICD-10: [...] lips 08/27/2017 None Full Exam - General 1995 [...] 1: 128/74 Code: 8480-6 BMI: 31.1 Code: 99260-5 Heart Rate 1: 81 bpm Height: 5'2" SpO2: 97% Weight: 170 lbs 08/29/2018 Blood Pressure 1: 120/70 Code: 8480-6 BMI: 31.1 Code: 59133-6 Heart Rate 1: 65 bpm Height: 5'2" Weight: 170 lbs 07/18/2018 Blood Pressure 1: 126/88 Code: 8480-6 Heart Rate 1: 78 bpm Height: SpO2: 97% Weight: 07/16/2018 Blood Pressure 1: 130/78 Code: 8480-6 Heart Rate 1: 84 bpm Weight: 172 lbs 06/18/2018 Blood Pressure 1: 128/80 Code: 8480-6 BMI: 31.1 Code: 29562-0 Heart Rate 1: 80 bpm Height: 5'2" SpO2: 97% Weight: 170 lbs 02/28/2018 Blood Pressure 1: 120/78 Code: 8480-6 BMI: 31.6 Code: 89622-9 Heart Rate 1: 66 bpm Height: 5'2" SpO2: 98% Weight: 173 lbs 12/09/2017 Blood Pressure 1: 116/74 Code: 8480-6 BMI: 31.5 Code: 21489-5 Heart Rate 1: 74 bpm Height: 5'2" SpO2: 95% Weight: 172 lbs 10/21/2017 Blood Pressure 1: 136/82 Code: 8480-6 BMI: 30.4 Code: 77175-8 Heart Rate 1: 79 bpm Height: 5'2" SpO2: 97% Weight: 166 lbs 09/26/2017 Blood Pressure 1: 122/80 Code: 8480-6 BMI: 30.4 Code: 48862-4 Heart Rate 1: 63 bpm Height: 5'2" SpO2: 98% Weight: 166 lbs 08/27/2017 Blood Pressure 1: 132/70 Code: 8480-6 BMI: 30.7 Code: 24347-1 Heart Rate 1: 89 bpm Height: 5'2" SpO2: 98% Weight: 168 lbs 05/27/2017 Blood Pressure 1: 132/72 Code: 8480-6 BMI: 28.9 Code: 87897-5 Heart Rate 1: 72 bpm Height: 5'2" SpO2: 98% Weight: 158 lbs 04/24/2017 Blood Pressure 1: 140/76 Code: 8480-6 BMI: 29.3 Code: 53245-6 Heart Rate 1: 77 bpm Height: 5'2" SpO2: 97% Weight: 160 lbs 03/27/2017 Blood Pressure 1: 128/74 Code: 8480-6 BMI: 29.1 Code: 35282-7 Heart Rate 1: 74 bpm Height: 5'2" SpO2: 98% Temperature: 36.8 (C) / 98.3 (F) Weight: 159 lbs 10/25/2016 Blood Pressure 1: 116/74 Code: 8480-6 BMI: 28.9 Code: 95458-8 Heart Rate 1: 68 bpm Height: 5'2" SpO2: 99% Weight: 158 lbs 09/20/2016 Blood Pressure 1: 116/70 Code: 8480-6 Heart Rate 1: 72 bpm Weight: 150 lbs 08/24/2016 Blood Pressure 1: 118/62 Code: 8480-6 BMI: 27.6 Code: 32446-1 Heart Rate 1: 63 bpm Height: 5'2" SpO2: 99% Weight: 151 lbs 06/12/2016 Blood Pressure 1: 122/74 Code: 8480-6 BMI: 26.9 Code: 72982-4 Heart Rate 1: 52 bpm Height: 5'2" [...] data Encounters Encounter Performer Location Codes Date 71284 EST. PATIENT, LEVEL III Diagnosis: Chronic pain syndrome[ICD10: G89.4] Diagnosis: Menopausal and female climacteric states[ICD10: N95.1] [facility] CPT-4: 34729 10/09/2018 ([id number]) Miscellaneous no charge Diagnosis: Overweight[ICD10: E66.3] [facility] CPT-4: 93848 08/29/2018 [id number] EST. PATIENT, LEVEL III Diagnosis: Generalized anxiety disorder[ICD10: F41.1] Diagnosis: Major depressive disorder, single episode, moderate[ICD10: F32.1] [facility] CPT-4: 31279 07/18/2018 ([id number]) Miscellaneous no charge Diagnosis: Overweight[ICD10: E66.3] [facility] CPT-4: 48588 07/16/2018 30312 EST. PATIENT, LEVEL III Diagnosis: Chronic pain syndrome[ICD10: G89.4] Diagnosis: Overweight[ICD10: E66.3] [facility] CPT-4: 33328 06/18/2018 74090 EST. PATIENT, LEVEL IV Diagnosis: Chronic pain syndrome[ICD10: G89.4] Diagnosis: Overweight[ICD10: E66.3] [facility] CPT-4: 71836 02/28/2018 47868 EST. PATIENT, LEVEL III Diagnosis: Chronic pain syndrome[ICD10: G89.4] Diagnosis: Overweight[ICD10: E66.3] [facility] CPT-4: 41747 12/09/2017 91739 EST. PATIENT, LEVEL III Diagnosis: Chronic pain syndrome[ICD10: G89.4] Diagnosis: Overweight[ICD10: E66.3] [facility] CPT-4: 07205 10/21/2017 ([id number]) Miscellaneous no charge Diagnosis: Overweight[ICD10: E66.3] [facility] CPT-4: 81422 09/26/2017 [id number] EST. PATIENT, LEVEL III Diagnosis: Chronic pain syndrome[ICD10: G89.4] Diagnosis: Overweight[ICD10: E66.3] [facility] CPT-4: 61299 08/27/2017 07634 EST. PATIENT, LEVEL III Diagnosis: Chronic pain syndrome[ICD10: G89.4] Diagnosis: Generalized anxiety disorder[ICD10: F41.1] Diagnosis: Major depressive disorder, single episode, moderate[ICD10: F32.1] Diagnosis: Cellulitis of right lower limb[ICD10: L03.115] [facility] CPT-4: 37503 05/27/2017 ([id number]) 14219 EST. PATIENT, LEVEL IV Diagnosis: Generalized anxiety disorder[ICD10: F41.1] Diagnosis: Major depressive disorder, single episode, moderate[ICD10: F32.1] Diagnosis: Menopausal and female climacteric states[ICD10: N95.1] Diagnosis: Chronic pain syndrome[ICD10: G89.4] [facility] CPT- 4: 28498 04/24/2017 ([id number]) PREV VISIT EST AGE 18-39 Diagnosis: Encounter for gynecological examination (general) (routine) without abnormal findings[ICD10: Z01.419] [facility] CPT-4: 46741 03/27/2017 ([id number]) 26377 EST. PATIENT, LEVEL III Diagnosis: Overweight[ICD10: E66.3] [facility] CPT-4: 02840 10/25/2016 ([id number]) Miscellaneous no charge Diagnosis: Overweight[ICD10: E66.3] [facility], [facility] CPT-4: 73720 09/20/2016 28683 EST. PATIENT, LEVEL IV Diagnosis: Other fatigue[ICD10: R53.83] Diagnosis: Overweight[ICD10: E66.3] Diagnosis: Generalized anxiety disorder[ICD10: F41.1] [facility] CPT-4: 86044 08/24/2016 ([id number]) OFFICE VISIT, NEW - LEVEL 4 Diagnosis: Generalized anxiety disorder[ICD10: F41.1] Diagnosis: Major depressive disorder, single episode, moderate[ICD10: F32.1] [facility] CPT-4: 02377 06/12/2016 Plan of Care Planned Activity Notes [...] concerns. 10/09/2018 Appointment: Veda Duenas WPtel: [phone] [facility] (15 min) Moderate 10/09/2018 Patient Education: [...] patient. 07/18/2018 Appointment: Veda Duenas WPtel: [phone] [facility] (15 min) Moderate 07/18/2018 Patient Education: [...] check. 06/18/2018 Appointment: Veda Duenas WPtel: [phone] [facility] (15 min) Moderate 06/18/2018 Patient Education: [...] check. 02/28/2018 Appointment: Veda Duenas WPtel: [facility]5 [facility] (30 min) Complex 02/28/2018 Patient Education: Patient Medication Summary Completed 02/28/2018 Patient Education: Obesity Completed 02/28/2018 Appointment: Veda Duenas WPtel: [address] [place], [place] [address] (15 min) Moderate 02/27/2018 Visit Plan: [...] check. 12/09/2017 Appointment: Veda Duenas WPtel: [facility]5 [facility] (15 min) Moderate 12/09/2017 Patient [...] check. 10/21/2017 [phone] ([facility] Moderate 10/21/2017 Patient Education: Patient Medication Summary Completed 10/21/2017 Patient Education: Obesity Completed 10/21/2017 Appointment: Nurse Visit 09/26/2017 Patient Education: Patient Medication Summary Completed 09/26/2017 [phone] ([facility] min) Complex 08/30/2017 Visit [...] discharge. 05/27/2017 App[facility]ment[phone] (30 min) Complex 05/27/2017 Patient [...] RX. 04/24/2017 Appointment: Veda Duenas WPtel: [facility] (30 min) Complex 04/24/2017 Patient Education: [...] pharmacy. 03/27/2017 App[facility]ment[phone] [facility] 03/27/2017 Patient Education: [...] check. 10/25/2016 Appointment: Veda Duenas WPtel: [facility]5 [facility] (15 min) Moderate 10/25/2016 Patient Education: [...] check. 08/24/2016 Appointment: Radha Mcgowan WPtel: [facility]5 [phone] (30 min) Complex 08/24/2016 Appointment: Radha Mcgowan WPtel: [facility]5 [phone] (30 min) Complex 08/24/2016 Appointment: Radha Mcgowan WPtel: [address] [place], [place] [id number] (30 min) Complex 08/24/2016 Patient Education: Patient [...] patient. 06/12/2016 Appointment: Radha Mcgowan WPtel[facility] New Patient 06/12/2016 Patient Education: Patient [...]
[2019-07-01] MEDS ORDERED: ceFAZolin 2 GM/50 ML NS 50 ML IV ONE (06:45)
[2019-07-01] MEDS ORDERED: CATHETER FLUSH 10 ML SYR IV PRN (06:45)
--- OUTSIDE RECORDS SUMMARY | 2019-07-01 06:45 | XMS REPORT | CCD ---
Author Author Veda Duenas Organization [facility] Address [address] [place] [address] Phone Care Team Providers Care Service Dispatcher Name Role Phone PP Unavailable CCM Unavailable Summary Purpose Interface Exchange Insurance Providers Payer name Policy type / Coverage type Covered green party ID Effective Begin Date Effective End Date Blue Cross [id number] Unknown Family history Father Diagnosis Age At Onset Diabetes Unknown Hyperlipidemia Unknown Hypertension Unknown Heart Attack Unknown Social History Social History Element Codes Description Effective Dates Marital status Unknown CJ 06/12/2016 Number of children Unknown 3 06/12/[address]: 037977849 Never smoker 06/12/[address]: 339347296 Never drinks alcohol 06/12/2016 Allergies, Adverse Reactions, [...] Start Date Stop Date Status Fill Instructions pravastatin 20 mg tablet RxNorm: 524130 1 Tablet(s) PO QPM 10/28/2018 02/24/2019 Active pravastatin 20 mg tablet RxNorm: 978172 1 Tablet(s) PO QPM 10/28/2018 10/27/2018 Inactive EEMT 1.25 mg-2.5 mg tablet RxNorm: 944379 1 Tablet(s) PO daily 10/09/2018 01/06/2019 Active norethindrone acetate 1 mg-ethinyl estradiol 20 mcg tablet RxNorm: 4389719 1 Tablet(s) PO daily 10/09/2018 10/03/2019 Active hydrocodone 5 mg-acetaminophen 325 mg tablet RxNorm: 449160 1-1.5 Tablet(s) PO QID as needed 10/09/2018 11/07/2018 Active hydrocodone 5 mg-acetaminophen 325 mg tablet RxNorm: 701634 1-1.5 Tablet(s) PO QID as needed 09/11/2018 10/08/2018 Inactive phentermine 37.5 mg tablet RxNorm: 768238 1 Tablet(s) PO daily 08/29/2018 No Stop Date Active cyclobenzaprine 5 mg tablet RxNorm: 853062 TAKE ONE TABLET BY MOUTH THREE TIMES DAILY NEEDED FOR MUSCLE SPASM 08/27/2018 No Stop Date Active hydrocodone 5 mg-acetaminophen 325 mg tablet RxNorm: 601467 1-1.5 Tablet(s) PO QID as needed 08/14/2018 09/10/2018 Inactive Lexapro 10 mg tablet RxNorm: 057102 1 Tablet(s) PO daily 07/18/2018 08/16/2018 Inactive diazepam 10 mg tablet RxNorm: 576392 1 Tablet(s) PO TID as needed anxiety 07/11/2018 07/14/2018 Inactive Zorvolex 35 mg capsule RxNorm: 1752627 1 Capsule(s) PO TID 06/18/2018 No Stop Date Active hydrocodone 5 mg-acetaminophen 325 mg tablet RxNorm: 709056 1-1.5 Tablet(s) PO QID as needed 06/18/2018 07/17/2018 Inactive cyclobenzaprine 5 mg tablet RxNorm: 973006 TAKE ONE TABLET BY MOUTH THREE TIMES DAILY NEEDED FOR MUSCLE SPASM 06/04/2018 08/26/2018 Inactive hydrocodone 5 mg-acetaminophen 325 mg tablet RxNorm: 274542 1-1.5 Tablet(s) PO QID as needed 05/26/2018 06/17/2018 Inactive cyclobenzaprine 5 mg tablet RxNorm: 103210 TAKE ONE TABLET BY MOUTH THREE TIMES DAILY NEEDED FOR MUSCLE SPASM 05/07/2018 06/03/2018 Inactive ibuprofen 800 mg tablet RxNorm: 907673 TAKE ONE TABLET BY MOUTH THREE TIMES DAILY NEEDED 04/28/2018 No Stop Date Active hydrocodone 5 mg-acetaminophen 325 mg tablet RxNorm: 738948 1-1.5 Tablet(s) PO QID as needed 04/28/2018 05/25/2018 Inactive diazepam 10 mg tablet RxNorm: 493358 1 Tablet(s) PO TID as needed anxiety 04/22/2018 06/19/2018 Inactive hydrocodone 5 mg-acetaminophen 325 mg tablet RxNorm: 661450 1-1.5 Tablet(s) PO QID as needed 03/25/2018 04/23/2018 Inactive cyclobenzaprine 5 mg tablet RxNorm: 896247 TAKE ONE TABLET BY MOUTH THREE TIMES DAILY NEEDED FOR MUSCLE SPASM 03/17/2018 05/06/2018 Inactive hydrocodone 5 mg-acetaminophen 325 mg tablet RxNorm: 822466 1-1.5 Tablet(s) PO QID as needed 03/02/2018 03/24/2018 Inactive phentermine 37.5 mg tablet RxNorm: 785852 1 Tablet(s) PO daily 03/02/2018 08/28/2018 Inactive hydrocodone 5 mg-acetaminophen 325 mg tablet RxNorm: 339746 1-1.5 Tablet(s) PO QID as needed 02/03/2018 03/01/2018 Inactive diazepam 10 mg tablet RxNorm: 886963 1 Tablet(s) PO TID as needed anxiety 01/01/2018 02/28/2018 Inactive Lyrica 100 mg capsule RxNorm: 947524 1 Capsule(s) PO BID as needed 12/09/2017 03/08/2018 Inactive hydrocodone 5 mg-acetaminophen 325 mg tablet RxNorm: 161381 1-1.5 Tablet(s) PO QID as needed 12/09/2017 01/07/2018 Inactive ibuprofen 800 mg tablet RxNorm: 261716 1 Tablet(s) PO TID as needed 12/09/2017 01/07/2018 Inactive cyclobenzaprine 5 mg tablet RxNorm: 799624 TAKE ONE TABLET BY MOUTH THREE TIMES DAILY NEEDED FOR MUSCLE SPASM 12/03/2017 03/16/2018 Inactive hydrocodone 5 mg-acetaminophen 325 mg tablet RxNorm: 093834 1-1.5 Tablet(s) PO QID as needed 10/21/2017 11/19/2017 Inactive hydrocodone 7.5 mg-acetaminophen 325 mg tablet RxNorm: 338155 1 Tablet(s) PO QID as needed 09/26/2017 10/20/2017 Inactive phentermine 37.5 mg tablet RxNorm: 608487 1 Tablet(s) PO daily 09/26/2017 10/01/2017 Inactive Lyrica 100 mg capsule RxNorm: 598570 1 Capsule(s) PO BID as needed 09/12/2017 12/08/2017 Inactive hydrocodone 7.5 mg-acetaminophen 325 mg tablet RxNorm: 735536 1 Tablet(s) PO QID as needed 08/27/2017 09/23/2017 Inactive Belviq XR 20 mg tablet,extended release RxNorm: 9453946 1 Tablet(s) PO daily 08/27/2017 09/23/2017 Inactive cyclobenzaprine 5 mg tablet RxNorm: 504130 1 Tablet(s) PO TID as needed muscle spasms 08/19/2017 08/23/2017 Inactive hydrocodone 7.5 mg-acetaminophen 325 mg tablet RxNorm: 226976 1 Tablet(s) PO QID as needed 08/02/2017 08/26/2017 Inactive hydrocodone 7.5 mg-acetaminophen 325 mg tablet RxNorm: 305002 1 Tablet(s) PO TID as needed 08/02/2017 08/01/2017 Inactive diazepam 10 mg tablet RxNorm: 861739 1 Tablet(s) PO TID as needed anxiety 07/24/2017 02/02/2018 Inactive hydrocodone 7.5 mg-acetaminophen 325 mg tablet RxNorm: 082823 1 Tablet(s) PO TID as needed 07/11/2017 08/01/2017 Inactive Lyrica 100 mg capsule RxNorm: 047984 1 Capsule(s) PO BID as needed 06/24/2017 09/20/2017 Inactive hydrocodone 5 mg-acetaminophen 325 mg tablet RxNorm: 903890 1 Tablet(s) PO TID 06/24/2017 07/30/2017 Inactive prednisone 10 mg tablet RxNorm: 989781 1 Tablet(s) PO daily 06/18/2017 06/17/2017 Inactive 6-5-4-3-2-1 then stop prednisone 10 mg tablet RxNorm: 070725 1 Tablet(s) PO daily 06/18/2017 08/25/2017 Inactive 6-5-4-3-2-1 then stop Bactrim DS 800 mg-160 mg tablet RxNorm: 533811 1 Tablet(s) PO BID 06/11/2017 06/14/2017 Inactive Bactrim DS 800 mg-160 mg tablet RxNorm: 272138 1 Tablet(s) PO BID 06/03/2017 06/10/2017 Inactive mupirocin 2 % topical ointment RxNorm: 479872 1 Application TOP BID 06/03/2017 08/25/2017 Inactive Lyrica 100 mg capsule RxNorm: 986149 1 Capsule(s) PO BID as needed 05/27/2017 06/23/2017 Inactive Keflex 500 mg capsule RxNorm: 061535 1 Capsule(s) PO TID 05/27/2017 06/02/2017 Inactive Lexapro 10 mg tablet RxNorm: 440944 1 Tablet(s) PO daily 05/27/2017 08/25/2017 Inactive hydrocodone 5 mg-acetaminophen 325 mg tablet RxNorm: 110338 1 Tablet(s) PO TID 05/27/2017 06/23/2017 Inactive hydrocodone 7.5 mg-acetaminophen 325 mg tablet RxNorm: 634817 1 Tablet(s) PO TID as needed 05/13/2017 05/25/2017 Inactive hydrocodone 7.5 mg-acetaminophen 325 mg tablet RxNorm: 673760 1 Tablet(s) PO TID as needed 05/13/2017 05/12/2017 Inactive cyclobenzaprine 5 mg tablet RxNorm: 399584 TAKE ONE TABLET BY MOUTH THREE TIMES DAILY NEEDED FOR MUSCLE SPASM 05/01/2017 05/05/2017 Inactive hydrocodone 5 mg-acetaminophen 325 mg tablet RxNorm: 370451 1 Tablet(s) PO TID as needed 04/24/2017 05/12/2017 Inactive cyclobenzaprine 5 mg tablet RxNorm: 238696 1 Tablet(s) PO TID as needed muscle spasms 04/24/2017 04/28/2017 Inactive diazepam 10 mg tablet RxNorm: 677739 1 Tablet(s) PO TID as needed anxiety 02/22/2017 04/19/2017 Inactive norethindrone acetate 1 mg-ethinyl estradiol 20 mcg tablet RxNorm: 7447453 1 Tablet(s) PO daily 12/18/2016 07/15/2017 Inactive EEMT 1.25 mg-2.5 mg tablet RxNorm: 709621 1 Tablet(s) PO daily 12/06/2016 03/05/2017 Inactive EEMT 1.25 mg-2.5 mg tablet RxNorm: 895479 1 Tablet(s) PO daily 12/06/2016 12/05/2016 Inactive Lexapro 10 mg tablet RxNorm: 216329 1 Tablet(s) PO daily 12/06/2016 05/04/2017 Inactive diazepam 10 mg tablet RxNorm: 329019 1 Tablet(s) PO TID 11/09/2016 12/07/2016 Inactive phentermine 37.5 mg tablet RxNorm: 419631 1 Tablet(s) PO daily 10/25/2016 08/23/2017 Inactive EEMT 1.25 mg-2.5 mg tablet RxNorm: 762022 1 Tablet(s) PO daily 10/25/2016 12/05/2016 Inactive phentermine 37.5 mg tablet RxNorm: 451174 1 Tablet(s) PO daily 09/20/2016 10/24/2016 Inactive Lexapro 10 mg tablet RxNorm: 652379 1 Tablet(s) PO daily 07/10/2016 12/05/2016 Inactive Lexapro 10 mg tablet RxNorm: 348656 1 Tablet(s) PO daily 06/12/2016 07/09/2016 Inactive norethindrone acetate 1 mg-ethinyl estradiol 20 mcg tablet RxNorm: 9798166 1 Tablet(s) PO daily 06/12/2016 12/17/2016 Inactive hydrocodone 10 mg-acetaminophen 325 mg tablet RxNorm: 922377 1 Tablet(s) PO TID No Start Date 05/12/2017 Inactive phentermine 37.5 mg tablet RxNorm: 404402 1 Tablet(s) PO daily No Start Date 09/19/2016 Inactive norethindrone acetate 1 mg-ethinyl estradiol 20 mcg tablet RxNorm: 1678907 1 Tablet(s) PO daily No Start Date 06/11/2016 Inactive EEMT 1.25 mg-2.5 mg tablet RxNorm: 791671 1 Tablet(s) PO daily No Start Date [...] 12/09/2017 None Full Exam - General 1995 Eyes conjunctiva/eyelids Overall: cornea clear 12/09/2017 None Full Exam - General 1994 Eyes conjunctiva/eyelids Overall: eyelids normal 12/09/2017 None Full Exam - General 1995 Ears/Nose/Throat lips/teeth/gingiva Overall: benign lips 12/09/2017 None Full Exam - General 1995 [...] 1: 128/74 Code: 8480-6 BMI: 31.1 Code: 44820-2 Heart Rate 1: 81 bpm Height: 5'2" SpO2: 97% Weight: 170 lbs 08/29/2018 Blood Pressure 1: 120/70 Code: 8480-6 BMI: 31.1 Code: 31580-7 Heart Rate 1: 65 bpm Height: 5'2" Weight: 170 lbs 07/18/2018 Blood Pressure 1: 126/88 Code: 8480-6 Heart Rate 1: 78 bpm Height: SpO2: 97% Weight: 07/16/2018 Blood Pressure 1: 130/78 Code: 8480-6 Heart Rate 1: 84 bpm Weight: 172 lbs 06/18/2018 Blood Pressure 1: 128/80 Code: 8480-6 BMI: 31.1 Code: 49538-0 Heart Rate 1: 80 bpm Height: 5'2" SpO2: 97% Weight: 170 lbs 02/28/2018 Blood Pressure 1: 120/78 Code: 8480-6 BMI: 31.6 Code: 80750-6 Heart Rate 1: 66 bpm Height: 5'2" SpO2: 98% Weight: 173 lbs 12/09/2017 Blood Pressure 1: 116/74 Code: 8480-6 BMI: 31.5 Code: 33731-4 Heart Rate 1: 74 bpm Height: 5'2" SpO2: 95% Weight: 172 lbs 10/21/2017 Blood Pressure 1: 136/82 Code: 8480-6 BMI: 30.4 Code: 74833-1 Heart Rate 1: 79 bpm Height: 5'2" SpO2: 97% Weight: 166 lbs 09/26/2017 Blood Pressure 1: 122/80 Code: 8480-6 BMI: 30.4 Code: 13835-5 Heart Rate 1: 63 bpm Height: 5'2" SpO2: 98% Weight: 166 lbs 08/27/2017 Blood Pressure 1: 132/70 Code: 8480-6 BMI: 30.7 Code: 20309-1 Heart Rate 1: 89 bpm Height: 5'2" SpO2: 98% Weight: 168 lbs 05/27/2017 Blood Pressure 1: 132/72 Code: 8480-6 BMI: 28.9 Code: 76071-8 Heart Rate 1: 72 bpm Height: 5'2" SpO2: 98% Weight: 158 lbs 04/24/2017 Blood Pressure 1: 140/76 Code: 8480-6 BMI: 29.3 Code: 12893-6 Heart Rate 1: 77 bpm Height: 5'2" SpO2: 97% Weight: 160 lbs 03/27/2017 Blood Pressure 1: 128/74 Code: 8480-6 BMI: 29.1 Code: 44662-3 Heart Rate 1: 74 bpm Height: 5'2" SpO2: 98% Temperature: 36.8 (C) / 98.3 (F) Weight: 159 lbs 10/25/2016 Blood Pressure 1: 116/74 Code: 8480-6 BMI: 28.9 Code: 70109-7 Heart Rate 1: 68 bpm Height: 5'2" SpO2: 99% Weight: 158 lbs 09/20/2016 Blood Pressure 1: 116/70 Code: 8480-6 Heart Rate 1: 72 bpm Weight: 150 lbs 08/24/2016 Blood Pressure 1: 118/62 Code: 8480-6 BMI: 27.6 Code: 69062-7 Heart Rate 1: 63 bpm Height: 5'2" SpO2: 99% Weight: 151 lbs 06/12/2016 Blood Pressure 1: 122/74 Code: 8480-6 BMI: 26.9 Code: 93618-6 Heart Rate 1: 52 bpm Height: 5'2" [...] data Encounters Encounter Performer Location Codes Date 76311 EST. PATIENT, LEVEL III Diagnosis: Chronic pain syndrome[ICD10: G89.4] Diagnosis: Menopausal and female climacteric states[ICD10: N95.1] [facility] CPT-4: 17218 10/09/2018 ([id number]) Miscellaneous no charge Diagnosis: Overweight[ICD10: E66.3] [facility], [facility] CPT-4: 01760 08/29/2018 70569 EST. PATIENT, LEVEL III Diagnosis: Generalized anxiety disorder[ICD10: F41.1] Diagnosis: Major depressive disorder, single episode, moderate[ICD10: F32.1] [facility], [facility] CPT-4: 34484 07/18/2018 ([id number]) Miscellaneous no charge Diagnosis: Overweight[ICD10: E66.3] [facility], [facility] CPT-4: 82967 07/16/2018 33109 EST. PATIENT, LEVEL III Diagnosis: Chronic pain syndrome[ICD10: G89.4] Diagnosis: Overweight[ICD10: E66.3] [facility], [facility] CPT-4: 71299 06/18/2018 15209 EST. PATIENT, LEVEL IV Diagnosis: Chronic pain syndrome[ICD10: G89.4] Diagnosis: Overweight[ICD10: E66.3] [facility] MD, [facility] CPT-4: 50202 02/28/2018 35258 EST. PATIENT, LEVEL III Diagnosis: Chronic pain syndrome[ICD10: G89.4] Diagnosis: Overweight[ICD10: E66.3] [facility], [facility] CPT-4: 25011 12/09/2017 97820 EST. PATIENT, LEVEL III Diagnosis: Chronic pain syndrome[ICD10: G89.4] Diagnosis: Overweight[ICD10: E66.3] [facility] MD, [facility] CPT-4: 28254 10/21/2017 ([id number]) Miscellaneous no charge Diagnosis: Overweight[ICD10: E66.3] [facility], [facility] CPT-4: 54282 09/26/2017 04324 EST. PATIENT, LEVEL III Diagnosis: Chronic pain syndrome[ICD10: G89.4] Diagnosis: Overweight[ICD10: E66.3] [facility], [facility] CPT-4: 18407 08/27/2017 10314 EST. PATIENT, LEVEL III Diagnosis: Chronic pain syndrome[ICD10: G89.4] Diagnosis: Generalized anxiety disorder[ICD10: F41.1] Diagnosis: Major depressive disorder, single episode, moderate[ICD10: F32.1] Diagnosis: Cellulitis of right lower limb[ICD10: L03.115] [facility], [facility] CPT-4: 56707 05/27/2017 ([id number]) 75388 EST. PATIENT, LEVEL IV Diagnosis: Generalized anxiety disorder[ICD10: F41.1] Diagnosis: Major depressive disorder, single episode, moderate[ICD10: F32.1] Diagnosis: Menopausal and female climacteric states[ICD10: N95.1] Diagnosis: Chronic pain syndrome[ICD10: G89.4] [facility], [facility] CPT- 4: 48501 04/24/2017 ([id number]) PREV VISIT EST AGE 18-39 Diagnosis: Encounter for gynecological examination (general) (routine) without abnormal findings[ICD10: Z01.419] [facility] CPT-4: 23516 03/27/2017 ([id number]) 88876 EST. PATIENT, LEVEL III Diagnosis: Overweight[ICD10: E66.3] [facility] MD, [facility] CPT-4: 34783 10/25/2016 ([id number]) Miscellaneous no charge Diagnosis: Overweight[ICD10: E66.3] [facility] MD, [facility] CPT-4: 74540 09/20/2016 56142 EST. PATIENT, LEVEL IV Diagnosis: Other fatigue[ICD10: R53.83] Diagnosis: Overweight[ICD10: E66.3] Diagnosis: Generalized anxiety disorder[ICD10: F41.1] [facility] MD, [facility] CPT-4: 26161 08/24/2016 ([id number]) OFFICE VISIT, NEW - LEVEL 4 Diagnosis: Generalized anxiety disorder[ICD10: F41.1] Diagnosis: Major depressive disorder, single episode, moderate[ICD10: F32.1] [facility], [facility] CPT-4: 12647 06/12/2016 Plan of Care Planned Activity Notes [...] concerns. 10/09/2018 Appointment: Veda Duenas WPtel: [phone] [facility] (15 min) Moderate 10/09/2018 Patient Education: Patient [...] patient. 07/18/2018 Appointment: Veda Duenas WPtel: [phone] [facility] (15 min) Moderate 07/18/2018 Patient Education: Patient [...] weight check. 06/18/2018 [phone] ([facility]) Moderate 06/18/2018 Patient Education: Patient [...] for weight check. 02/28/2018 Appointment: Veda Duenastel: [phone] [facility] (30 min) Complex 02/28/2018 Patient Education: Patient Medication Summary Completed 02/28/2018 Patient Education: Obesity Completed 02/28/2018 Appointment: Veda Duenas WPtel: [phone] [facility] (15 min) Moderate 02/27/2018 Visit Plan: Chronic [...] for weight check. 12/09/2017 Appointment: Veda Duenastel: [facility] [place] (15 min) Moderate 12/09/2017 Patient Education: [...] for weight check. 10/21/2017 Appointment: Veda Duenastel: [phone] [facility] [place] (15 min) Moderate 10/21/2017 Patient Education: Patient Medication Summary Completed 10/21/2017 Patient Education: Obesity Completed 10/21/2017 Appointment: Nurse Visit 09/26/2017 Patient Education: Patient Medication Summary Completed 09/26/2017 Appointment: Veda Duenas WPtel: [phone] [facility] (30 min) Complex 08/30/2017 Visit Plan: Chronic [...] discharge. 05/27/2017 [phone] (30 min) Complex 05/27/2017 Patient Education: [...] RX. 04/24/2017 Appointment: Veda Duenas WPtel: [phone] [place] [id number] (30 min) Complex 04/24/2017 Patient [...] pharmacy. 03/27/2017 Appointment: Veda Duenas WPtel: [phone] [facility] 03/27/2017 Patient Education: [...] check. 10/25/2016 Appointment: Veda Duenas WPtel: [phone] [facility] (15 min) Moderate 10/25/2016 Patient [...] weight check. 08/24/2016 Appointment: Radha Mcgowan WPtel: [phone] (30 min) Complex 08/24/2016 Appointment: Radha Mcgowan WPtel: [phone] (30 min) Complex 08/24/2016 Appointment: Radha Mcgowan WPtel: [phone] (30 min) Complex 08/24/2016 Patient [...] patient. 06/12/2016 Appointment: [facility] Mcgowan [phone] New Patient 06/12/2016 Patient Education: Patient [...]
--- OUTSIDE RECORDS SUMMARY | 2019-07-01 06:47 | XMS REPORT | CCD ---
Author Author Veda Duenas Organization [facility] Address [address] [place] [address] Phone Care Team Providers Care Hand Compositor Name Role Phone PP Unavailable CCM Unavailable Summary Purpose Interface Exchange Insurance Providers Payer name Policy type / Coverage type Covered libertarian ID Effective Begin Date Effective End Date Blue [facility] Blue Cross/[id number] Unknown Family history Father Diagnosis Age At Onset Diabetes Unknown Hyperlipidemia Unknown Hypertension Unknown Heart Attack Unknown Social History Social History Element Codes Description Effective Dates Marital status Unknown CJ 06/12/2016 Number of children Unknown 3 06/12/[address]: 414824176 Never smoker 06/12/[address]: 410955658 Never drinks alcohol 06/12/2016 Allergies, Adverse Reactions, [...] Start Date Stop Date Status Fill Instructions EEMT 1.25 mg-2.5 mg tablet RxNorm: 576123 1 Tablet(s) PO daily 10/09/2018 01/06/2019 Active norethindrone acetate 1 mg-ethinyl estradiol 20 mcg tablet RxNorm: 9167726 1 Tablet(s) PO daily 10/09/2018 10/03/2019 Active hydrocodone 5 mg-acetaminophen 325 mg tablet RxNorm: 787727 1-1.5 Tablet(s) PO QID as needed 10/09/2018 11/07/2018 Active hydrocodone 5 mg-acetaminophen 325 mg tablet RxNorm: 240054 1-1.5 Tablet(s) PO QID as needed 09/11/2018 10/08/2018 Inactive phentermine 37.5 mg tablet RxNorm: 307545 1 Tablet(s) PO daily 08/29/2018 No Stop Date Active cyclobenzaprine 5 mg tablet RxNorm: 844638 TAKE ONE TABLET BY MOUTH THREE TIMES DAILY NEEDED FOR MUSCLE SPASM 08/27/2018 No Stop Date Active hydrocodone 5 mg-acetaminophen 325 mg tablet RxNorm: 407954 1-1.5 Tablet(s) PO QID as needed 08/14/2018 09/10/2018 Inactive Lexapro 10 mg tablet RxNorm: 254450 1 Tablet(s) PO daily 07/18/2018 08/16/2018 Inactive diazepam 10 mg tablet RxNorm: 196721 1 Tablet(s) PO TID as needed anxiety 07/11/2018 07/14/2018 Inactive Zorvolex 35 mg capsule RxNorm: 6679502 1 Capsule(s) PO TID 06/18/2018 No Stop Date Active hydrocodone 5 mg-acetaminophen 325 mg tablet RxNorm: 113413 1-1.5 Tablet(s) PO QID as needed 06/18/2018 07/17/2018 Inactive cyclobenzaprine 5 mg tablet RxNorm: 125940 TAKE ONE TABLET BY MOUTH THREE TIMES DAILY NEEDED FOR MUSCLE SPASM 06/04/2018 08/26/2018 Inactive hydrocodone 5 mg-acetaminophen 325 mg tablet RxNorm: 868727 1-1.5 Tablet(s) PO QID as needed 05/26/2018 06/17/2018 Inactive cyclobenzaprine 5 mg tablet RxNorm: 196054 TAKE ONE TABLET BY MOUTH THREE TIMES DAILY NEEDED FOR MUSCLE SPASM 05/07/2018 06/03/2018 Inactive ibuprofen 800 mg tablet RxNorm: 098819 TAKE ONE TABLET BY MOUTH THREE TIMES DAILY NEEDED 04/28/2018 No Stop Date Active hydrocodone 5 mg-acetaminophen 325 mg tablet RxNorm: 177463 1-1.5 Tablet(s) PO QID as needed 04/28/2018 05/25/2018 Inactive diazepam 10 mg tablet RxNorm: 863261 1 Tablet(s) PO TID as needed anxiety 04/22/2018 06/19/2018 Inactive hydrocodone 5 mg-acetaminophen 325 mg tablet RxNorm: 398507 1-1.5 Tablet(s) PO QID as needed 03/25/2018 04/23/2018 Inactive cyclobenzaprine 5 mg tablet RxNorm: 833762 TAKE ONE TABLET BY MOUTH THREE TIMES DAILY NEEDED FOR MUSCLE SPASM 03/17/2018 05/06/2018 Inactive hydrocodone 5 mg-acetaminophen 325 mg tablet RxNorm: 438886 1-1.5 Tablet(s) PO QID as needed 03/02/2018 03/24/2018 Inactive phentermine 37.5 mg tablet RxNorm: 114956 1 Tablet(s) PO daily 03/02/2018 08/28/2018 Inactive hydrocodone 5 mg-acetaminophen 325 mg tablet RxNorm: 791125 1-1.5 Tablet(s) PO QID as needed 02/03/2018 03/01/2018 Inactive diazepam 10 mg tablet RxNorm: 004724 1 Tablet(s) PO TID as needed anxiety 01/01/2018 02/28/2018 Inactive Lyrica 100 mg capsule RxNorm: 303979 1 Capsule(s) PO BID as needed 12/09/2017 03/08/2018 Inactive hydrocodone 5 mg-acetaminophen 325 mg tablet RxNorm: 696845 1-1.5 Tablet(s) PO QID as needed 12/09/2017 01/07/2018 Inactive ibuprofen 800 mg tablet RxNorm: 548446 1 Tablet(s) PO TID as needed 12/09/2017 01/07/2018 Inactive cyclobenzaprine 5 mg tablet RxNorm: 796987 TAKE ONE TABLET BY MOUTH THREE TIMES DAILY NEEDED FOR MUSCLE SPASM 12/03/2017 03/16/2018 Inactive hydrocodone 5 mg-acetaminophen 325 mg tablet RxNorm: 888736 1-1.5 Tablet(s) PO QID as needed 10/21/2017 11/19/2017 Inactive hydrocodone 7.5 mg-acetaminophen 325 mg tablet RxNorm: 658149 1 Tablet(s) PO QID as needed 09/26/2017 10/20/2017 Inactive phentermine 37.5 mg tablet RxNorm: 159012 1 Tablet(s) PO daily 09/26/2017 10/01/2017 Inactive Lyrica 100 mg capsule RxNorm: 888307 1 Capsule(s) PO BID as needed 09/12/2017 12/08/2017 Inactive hydrocodone 7.5 mg-acetaminophen 325 mg tablet RxNorm: 617112 1 Tablet(s) PO QID as needed 08/27/2017 09/23/2017 Inactive Belviq XR 20 mg tablet,extended release RxNorm: 4934728 1 Tablet(s) PO daily 08/27/2017 09/23/2017 Inactive cyclobenzaprine 5 mg tablet RxNorm: 657650 1 Tablet(s) PO TID as needed muscle spasms 08/19/2017 08/23/2017 Inactive hydrocodone 7.5 mg-acetaminophen 325 mg tablet RxNorm: 378952 1 Tablet(s) PO QID as needed 08/02/2017 08/26/2017 Inactive hydrocodone 7.5 mg-acetaminophen 325 mg tablet RxNorm: 939320 1 Tablet(s) PO TID as needed 08/02/2017 08/01/2017 Inactive diazepam 10 mg tablet RxNorm: 314506 1 Tablet(s) PO TID as needed anxiety 07/24/2017 02/02/2018 Inactive hydrocodone 7.5 mg-acetaminophen 325 mg tablet RxNorm: 718543 1 Tablet(s) PO TID as needed 07/11/2017 08/01/2017 Inactive Lyrica 100 mg capsule RxNorm: 213805 1 Capsule(s) PO BID as needed 06/24/2017 09/20/2017 Inactive hydrocodone 5 mg-acetaminophen 325 mg tablet RxNorm: 235147 1 Tablet(s) PO TID 06/24/2017 07/30/2017 Inactive prednisone 10 mg tablet RxNorm: 648541 1 Tablet(s) PO daily 06/18/2017 06/17/2017 Inactive 6-5-4-3-2-1 then stop prednisone 10 mg tablet RxNorm: 653171 1 Tablet(s) PO daily 06/18/2017 08/25/2017 Inactive 6-5-4-3-2-1 then stop Bactrim DS 800 mg-160 mg tablet RxNorm: 037455 1 Tablet(s) PO BID 06/11/2017 06/14/2017 Inactive Bactrim DS 800 mg-160 mg tablet RxNorm: 127349 1 Tablet(s) PO BID 06/03/2017 06/10/2017 Inactive mupirocin 2 % topical ointment RxNorm: 322675 1 Application TOP BID 06/03/2017 08/25/2017 Inactive Lyrica 100 mg capsule RxNorm: 517640 1 Capsule(s) PO BID as needed 05/27/2017 06/23/2017 Inactive Keflex 500 mg capsule RxNorm: 602123 1 Capsule(s) PO TID 05/27/2017 06/02/2017 Inactive Lexapro 10 mg tablet RxNorm: 987515 1 Tablet(s) PO daily 05/27/2017 08/25/2017 Inactive hydrocodone 5 mg-acetaminophen 325 mg tablet RxNorm: 240906 1 Tablet(s) PO TID 05/27/2017 06/23/2017 Inactive hydrocodone 7.5 mg-acetaminophen 325 mg tablet RxNorm: 778800 1 Tablet(s) PO TID as needed 05/13/2017 05/25/2017 Inactive hydrocodone 7.5 mg-acetaminophen 325 mg tablet RxNorm: 996871 1 Tablet(s) PO TID as needed 05/13/2017 05/12/2017 Inactive cyclobenzaprine 5 mg tablet RxNorm: 952424 TAKE ONE TABLET BY MOUTH THREE TIMES DAILY NEEDED FOR MUSCLE SPASM 05/01/2017 05/05/2017 Inactive hydrocodone 5 mg-acetaminophen 325 mg tablet RxNorm: 562480 1 Tablet(s) PO TID as needed 04/24/2017 05/12/2017 Inactive cyclobenzaprine 5 mg tablet RxNorm: 360857 1 Tablet(s) PO TID as needed muscle spasms 04/24/2017 04/28/2017 Inactive diazepam 10 mg tablet RxNorm: 625151 1 Tablet(s) PO TID as needed anxiety 02/22/2017 04/19/2017 Inactive norethindrone acetate 1 mg-ethinyl estradiol 20 mcg tablet RxNorm: 4234614 1 Tablet(s) PO daily 12/18/2016 07/15/2017 Inactive EEMT 1.25 mg-2.5 mg tablet RxNorm: 092092 1 Tablet(s) PO daily 12/06/2016 03/05/2017 Inactive EEMT 1.25 mg-2.5 mg tablet RxNorm: 897900 1 Tablet(s) PO daily 12/06/2016 12/05/2016 Inactive Lexapro 10 mg tablet RxNorm: 935579 1 Tablet(s) PO daily 12/06/2016 05/04/2017 Inactive diazepam 10 mg tablet RxNorm: 568532 1 Tablet(s) PO TID 11/09/2016 12/07/2016 Inactive phentermine 37.5 mg tablet RxNorm: 929560 1 Tablet(s) PO daily 10/25/2016 08/23/2017 Inactive EEMT 1.25 mg-2.5 mg tablet RxNorm: 891040 1 Tablet(s) PO daily 10/25/2016 12/05/2016 Inactive phentermine 37.5 mg tablet RxNorm: 413056 1 Tablet(s) PO daily 09/20/2016 10/24/2016 Inactive Lexapro 10 mg tablet RxNorm: 433351 1 Tablet(s) PO daily 07/10/2016 12/05/2016 Inactive Lexapro 10 mg tablet RxNorm: 660669 1 Tablet(s) PO daily 06/12/2016 07/09/2016 Inactive norethindrone acetate 1 mg-ethinyl estradiol 20 mcg tablet RxNorm: 8865672 1 Tablet(s) PO daily 06/12/2016 12/17/2016 Inactive hydrocodone 10 mg-acetaminophen 325 mg tablet RxNorm: 064744 1 Tablet(s) PO TID No Start Date 05/12/2017 Inactive phentermine 37.5 mg tablet RxNorm: 308849 1 Tablet(s) PO daily No Start Date 09/19/2016 Inactive norethindrone acetate 1 mg-ethinyl estradiol 20 mcg tablet RxNorm: 3875297 1 Tablet(s) PO daily No Start Date 06/11/2016 Inactive EEMT 1.25 mg-2.5 mg tablet RxNorm: 654851 1 Tablet(s) PO daily No Start Date [...] 1: 128/74 Code: 8480-6 BMI: 31.1 Code: 72521-9 Heart Rate 1: 81 bpm Height: 5'2" SpO2: 97% Weight: 170 lbs 08/29/2018 Blood Pressure 1: 120/70 Code: 8480-6 BMI: 31.1 Code: 29220-3 Heart Rate 1: 65 bpm Height: 5'2" Weight: 170 lbs 07/18/2018 Blood Pressure 1: 126/88 Code: 8480-6 Heart Rate 1: 78 bpm Height: SpO2: 97% Weight: 07/16/2018 Blood Pressure 1: 130/78 Code: 8480-6 Heart Rate 1: 84 bpm Weight: 172 lbs 06/18/2018 Blood Pressure 1: 128/80 Code: 8480-6 BMI: 31.1 Code: 73117-1 Heart Rate 1: 80 bpm Height: 5'2" SpO2: 97% Weight: 170 lbs 02/28/2018 Blood Pressure 1: 120/78 Code: 8480-6 BMI: 31.6 Code: 98509-0 Heart Rate 1: 66 bpm Height: 5'2" SpO2: 98% Weight: 173 lbs 12/09/2017 Blood Pressure 1: 116/74 Code: 8480-6 BMI: 31.5 Code: 12707-5 Heart Rate 1: 74 bpm Height: 5'2" SpO2: 95% Weight: 172 lbs 10/21/2017 Blood Pressure 1: 136/82 Code: 8480-6 BMI: 30.4 Code: 76304-0 Heart Rate 1: 79 bpm Height: 5'2" SpO2: 97% Weight: 166 lbs 09/26/2017 Blood Pressure 1: 122/80 Code: 8480-6 BMI: 30.4 Code: 89924-0 Heart Rate 1: 63 bpm Height: 5'2" SpO2: 98% Weight: 166 lbs 08/27/2017 Blood Pressure 1: 132/70 Code: 8480-6 BMI: 30.7 Code: 63348-5 Heart Rate 1: 89 bpm Height: 5'2" SpO2: 98% Weight: 168 lbs 05/27/2017 Blood Pressure 1: 132/72 Code: 8480-6 BMI: 28.9 Code: 80775-2 Heart Rate 1: 72 bpm Height: 5'2" SpO2: 98% Weight: 158 lbs 04/24/2017 Blood Pressure 1: 140/76 Code: 8480-6 BMI: 29.3 Code: 54471-1 Heart Rate 1: 77 bpm Height: 5'2" SpO2: 97% Weight: 160 lbs 03/27/2017 Blood Pressure 1: 128/74 Code: 8480-6 BMI: 29.1 Code: 91382-7 Heart Rate 1: 74 bpm Height: 5'2" SpO2: 98% Temperature: 36.8 (C) / 98.3 (F) Weight: 159 lbs 10/25/2016 Blood Pressure 1: 116/74 Code: 8480-6 BMI: 28.9 Code: 00706-3 Heart Rate 1: 68 bpm Height: 5'2" SpO2: 99% Weight: 158 lbs 09/20/2016 Blood Pressure 1: 116/70 Code: 8480-6 Heart Rate 1: 72 bpm Weight: 150 lbs 08/24/2016 Blood Pressure 1: 118/62 Code: 8480-6 BMI: 27.6 Code: 31438-9 Heart Rate 1: 63 bpm Height: 5'2" SpO2: 99% Weight: 151 lbs 06/12/2016 Blood Pressure 1: 122/74 Code: 8480-6 BMI: 26.9 Code: 45628-6 Heart Rate 1: 52 bpm Height: 5'2" [...] states[ICD10: N95.1] [facility] CPT-4: 47503 10/09/2018 ([id number]) Miscellaneous no charge Diagnosis: Overweight[ICD10: E66.3] [facility] CPT-4: 12200 08/29/2018 [id number] EST. PATIENT, LEVEL III Diagnosis: Generalized anxiety disorder[ICD10: F41.1] Diagnosis: Major depressive disorder, single episode, moderate[ICD10: F32.1] [facility], [facility] CPT-4: 62509 07/18/2018 ([id number]) Miscellaneous no charge Diagnosis: Overweight[ICD10: E66.3] [facility], [facility] CPT-4: 13038 07/16/2018 24112 EST. PATIENT, LEVEL III Diagnosis: Chronic pain syndrome[ICD10: G89.4] Diagnosis: Overweight[ICD10: E66.3] [facility] Jama MD, [facility] CPT-4: 28154 06/18/2018 41854 EST. PATIENT, LEVEL IV Diagnosis: Chronic pain syndrome[ICD10: G89.4] Diagnosis: Overweight[ICD10: E66.3] [facility], [facility] CPT-4: 41242 02/28/2018 [id number] EST. PATIENT, LEVEL III Diagnosis: Chronic pain syndrome[ICD10: G89.4] Diagnosis: Overweight[ICD10: E66.3] [facility], [facility] CPT-4: 57613 12/09/2017 71451 EST. PATIENT, LEVEL III Diagnosis: Chronic pain syndrome[ICD10: G89.4] Diagnosis: Overweight[ICD10: E66.3] [facility]eda Jama MD, [facility] CPT-4: 54632 10/21/2017 ([id number]) Miscellaneous no charge Diagnosis: Overweight[ICD10: E66.3] [facility], [facility] CPT-4: 04447 09/26/2017 20271 EST. PATIENT, LEVEL III Diagnosis: Chronic pain syndrome[ICD10: G89.4] Diagnosis: Overweight[ICD10: E66.3] [facility] MD, [facility] CPT-4: 99999 08/27/2017 33826 EST. PATIENT, LEVEL III Diagnosis: Chronic pain syndrome[ICD10: G89.4] Diagnosis: Generalized anxiety disorder[ICD10: F41.1] Diagnosis: Major depressive disorder, single episode, moderate[ICD10: F32.1] Diagnosis: Cellulitis of right lower limb[ICD10: L03.115] [facility], [facility] CPT-4: 98291 05/27/2017 ([id number]) 49103 EST. PATIENT, LEVEL IV Diagnosis: Generalized anxiety disorder[ICD10: F41.1] Diagnosis: Major depressive disorder, single episode, moderate[ICD10: F32.1] Diagnosis: Menopausal and female climacteric states[ICD10: N95.1] Diagnosis: Chronic pain syndrome[ICD10: G89.4] [facility] CPT- 4: 13430 04/24/2017 ([id number]) PREV VISIT EST AGE 18-39 Diagnosis: Encounter for gynecological examination (general) (routine) without abnormal findings[ICD10: Z01.419] [facility] CPT-4: 90667 03/27/2017 ([id number]) 85789 EST. PATIENT, LEVEL III Diagnosis: Overweight[ICD10: E66.3] [facility] CPT-4: 96714 10/25/2016 ([id number]) Miscellaneous no charge Diagnosis: Overweight[ICD10: E66.3] [facility] CPT-4: 10011 09/20/2016 82296 EST. PATIENT, LEVEL IV Diagnosis: Other fatigue[ICD10: R53.83] Diagnosis: Overweight[ICD10: E66.3] Diagnosis: Generalized anxiety disorder[ICD10: F41.1] [facility] CPT-4: 65374 08/24/2016 ([id number]) OFFICE VISIT, NEW - LEVEL 4 Diagnosis: Generalized anxiety disorder[ICD10: F41.1] Diagnosis: Major depressive disorder, single episode, moderate[ICD10: F32.1] [facility] CPT-4: 57047 06/12/2016 Plan of Care Planned Activity Notes [...] or concerns. 10/09/2018 Appointment: Veda Duenas WPtel: [address] [place], [place] [address] [place] (15 min) Moderate 10/09/2018 Patient Education: Patient [...] patient. 07/18/2018 Appointment: Veda Duenas WPtel: [phone] [facility]66[facility] (15 min) Moderate 07/18/2018 Patient [...] weight check. 06/18/2018 Appointment: Veda Duenas WPtel: [phone] [facility] (15 min) Moderate 06/18/2018 Patient Education: [...] weight check. 02/28/2018 [phone] [place] ([facility] min) Complex 02/28/2018 Patient Education: Patient Medication Summary Completed 02/28/2018 Patient Education: Obesity Completed 02/28/2018 Appointment: Veda Duenas WPtel: [phone] [facility] (15 min) Moderate 02/27/2018 Visit Plan: [...] Duenas WPtel: [facility] (15 min) Moderate 12/09/2017 Patient Education: [...] Duenas WPtel[facility] [place] (15 min) Moderate 10/21/2017 Patient Education: Patient Medication Summary Completed 10/21/2017 Patient Education: Obesity Completed 10/21/2017 Appointment: Nurse Visit 09/26/2017 Patient Education: Patient Medication Summary Completed 09/26/2017 Appointment: Veda Duenas WPtel: [facility] [place] (30 min) Complex 08/30/2017 Visit Plan: [...] warmth, discharge. 05/27/2017 Appointment: Veda Duenas WPtel: [address] [place], [place] [address] (30 min) [facility] 05/27/2017 Patient Education: Patient Medication Summary Completed [...] new RX. 04/24/2017 Appointment: Veda Duenas WPtel: [facility] ([facility] min) Complex 04/24/2017 Patient Education: [...] WPtel[facility] [facility] 03/27/2017 Patient Education: Patient [...] Duenas WPtel[facility] (15 min) Moderate 10/25/2016 Patient Education: [...] weight check. 08/24/2016 Appointment: Radha Mcgowan WPtel: [address] (30 min) Complex 08/24/2016 Appointment: Radha Mcgowan WPtel: [phone] (30 min) Complex 08/24/2016 Appointment: Radha Mcgowan WPtel: [facility]5 [facility] [place] [address] (30 min) Complex 08/24/2016 Patient Education: Patient [...] for this patient. 06/12/2016 Appointment: Radha Mcgowantel: [facility] New Patient 06/12/2016 Patient Education: Patient [...]
--- OUTSIDE RECORDS SUMMARY | 2019-07-01 06:48 | XMS REPORT | CCD ---
Author Author Veda Duenas Organization [facility] Address [address] [place] [address] Phone Care Team Providers Care Cabinet Maker Name Role Phone PP Unavailable CCM Unavailable Summary Purpose Interface Exchange Insurance Providers Payer name Policy type / Coverage type Covered constitution party ID Effective Begin Date Effective End Date Blue Cross [place] [facility] [employer]/[id number] Unknown Family history Father Diagnosis Age At Onset Diabetes Unknown Hyperlipidemia Unknown Hypertension Unknown Heart Attack Unknown Social History Social History Element Codes Description Effective Dates Marital status Unknown CJ 06/12/2016 Number of children Unknown 3 06/12/[address]: 714013102 Never smoker 06/12/[address]: 203917522 Never drinks alcohol 06/12/2016 Allergies, Adverse Reactions, [...] Instructions EEMT 1.25 mg-2.5 mg tablet RxNorm: 808702 1 Tablet(s) PO daily 10/09/2018 01/06/2019 Active norethindrone acetate 1 mg-ethinyl estradiol 20 mcg tablet RxNorm: 1735395 1 Tablet(s) PO daily 10/09/2018 10/03/2019 Active hydrocodone 5 mg-acetaminophen 325 mg tablet RxNorm: 994913 1-1.5 Tablet(s) PO QID as needed 10/09/2018 11/07/2018 Active hydrocodone 5 mg-acetaminophen 325 mg tablet RxNorm: 894718 1-1.5 Tablet(s) PO QID as needed 09/11/2018 10/08/2018 Inactive phentermine 37.5 mg tablet RxNorm: 966940 1 Tablet(s) PO daily 08/29/2018 No Stop Date Active cyclobenzaprine 5 mg tablet RxNorm: 774962 TAKE ONE TABLET BY MOUTH THREE TIMES DAILY NEEDED FOR MUSCLE SPASM 08/27/2018 No Stop Date Active hydrocodone 5 mg-acetaminophen 325 mg tablet RxNorm: 925744 1-1.5 Tablet(s) PO QID as needed 08/14/2018 09/10/2018 Inactive Lexapro 10 mg tablet RxNorm: 895983 1 Tablet(s) PO daily 07/18/2018 08/16/2018 Inactive diazepam 10 mg tablet RxNorm: 368514 1 Tablet(s) PO TID as needed anxiety 07/11/2018 07/14/2018 Inactive Zorvolex 35 mg capsule RxNorm: 4958120 1 Capsule(s) PO TID 06/18/2018 No Stop Date Active hydrocodone 5 mg-acetaminophen 325 mg tablet RxNorm: 711152 1-1.5 Tablet(s) PO QID as needed 06/18/2018 07/17/2018 Inactive cyclobenzaprine 5 mg tablet RxNorm: 798246 TAKE ONE TABLET BY MOUTH THREE TIMES DAILY NEEDED FOR MUSCLE SPASM 06/04/2018 08/26/2018 Inactive hydrocodone 5 mg-acetaminophen 325 mg tablet RxNorm: 825236 1-1.5 Tablet(s) PO QID as needed 05/26/2018 06/17/2018 Inactive cyclobenzaprine 5 mg tablet RxNorm: 748504 TAKE ONE TABLET BY MOUTH THREE TIMES DAILY NEEDED FOR MUSCLE SPASM 05/07/2018 06/03/2018 Inactive ibuprofen 800 mg tablet RxNorm: 129134 TAKE ONE TABLET BY MOUTH THREE TIMES DAILY NEEDED 04/28/2018 No Stop Date Active hydrocodone 5 mg-acetaminophen 325 mg tablet RxNorm: 573569 1-1.5 Tablet(s) PO QID as needed 04/28/2018 05/25/2018 Inactive diazepam 10 mg tablet RxNorm: 560849 1 Tablet(s) PO TID as needed anxiety 04/22/2018 06/19/2018 Inactive hydrocodone 5 mg-acetaminophen 325 mg tablet RxNorm: 271570 1-1.5 Tablet(s) PO QID as needed 03/25/2018 04/23/2018 Inactive cyclobenzaprine 5 mg tablet RxNorm: 730299 TAKE ONE TABLET BY MOUTH THREE TIMES DAILY NEEDED FOR MUSCLE SPASM 03/17/2018 05/06/2018 Inactive hydrocodone 5 mg-acetaminophen 325 mg tablet RxNorm: 940445 1-1.5 Tablet(s) PO QID as needed 03/02/2018 03/24/2018 Inactive phentermine 37.5 mg tablet RxNorm: 302036 1 Tablet(s) PO daily 03/02/2018 08/28/2018 Inactive hydrocodone 5 mg-acetaminophen 325 mg tablet RxNorm: 220082 1-1.5 Tablet(s) PO QID as needed 02/03/2018 03/01/2018 Inactive diazepam 10 mg tablet RxNorm: 763489 1 Tablet(s) PO TID as needed anxiety 01/01/2018 02/28/2018 Inactive Lyrica 100 mg capsule RxNorm: 362263 1 Capsule(s) PO BID as needed 12/09/2017 03/08/2018 Inactive hydrocodone 5 mg-acetaminophen 325 mg tablet RxNorm: 209144 1-1.5 Tablet(s) PO QID as needed 12/09/2017 01/07/2018 Inactive ibuprofen 800 mg tablet RxNorm: 014998 1 Tablet(s) PO TID as needed 12/09/2017 01/07/2018 Inactive cyclobenzaprine 5 mg tablet RxNorm: 245886 TAKE ONE TABLET BY MOUTH THREE TIMES DAILY NEEDED FOR MUSCLE SPASM 12/03/2017 03/16/2018 Inactive hydrocodone 5 mg-acetaminophen 325 mg tablet RxNorm: 217550 1-1.5 Tablet(s) PO QID as needed 10/21/2017 11/19/2017 Inactive hydrocodone 7.5 mg-acetaminophen 325 mg tablet RxNorm: 606850 1 Tablet(s) PO QID as needed 09/26/2017 10/20/2017 Inactive phentermine 37.5 mg tablet RxNorm: 872990 1 Tablet(s) PO daily 09/26/2017 10/01/2017 Inactive Lyrica 100 mg capsule RxNorm: 805350 1 Capsule(s) PO BID as needed 09/12/2017 12/08/2017 Inactive hydrocodone 7.5 mg-acetaminophen 325 mg tablet RxNorm: 307365 1 Tablet(s) PO QID as needed 08/27/2017 09/23/2017 Inactive Belviq XR 20 mg tablet,extended release RxNorm: 8235622 1 Tablet(s) PO daily 08/27/2017 09/23/2017 Inactive cyclobenzaprine 5 mg tablet RxNorm: 488233 1 Tablet(s) PO TID as needed muscle spasms 08/19/2017 08/23/2017 Inactive hydrocodone 7.5 mg-acetaminophen 325 mg tablet RxNorm: 560519 1 Tablet(s) PO QID as needed 08/02/2017 08/26/2017 Inactive hydrocodone 7.5 mg-acetaminophen 325 mg tablet RxNorm: 596296 1 Tablet(s) PO TID as needed 08/02/2017 08/01/2017 Inactive diazepam 10 mg tablet RxNorm: 561203 1 Tablet(s) PO TID as needed anxiety 07/24/2017 02/02/2018 Inactive hydrocodone 7.5 mg-acetaminophen 325 mg tablet RxNorm: 156989 1 Tablet(s) PO TID as needed 07/11/2017 08/01/2017 Inactive Lyrica 100 mg capsule RxNorm: 551076 1 Capsule(s) PO BID as needed 06/24/2017 09/20/2017 Inactive hydrocodone 5 mg-acetaminophen 325 mg tablet RxNorm: 563267 1 Tablet(s) PO TID 06/24/2017 07/30/2017 Inactive prednisone 10 mg tablet RxNorm: 826964 1 Tablet(s) PO daily 06/18/2017 06/17/2017 Inactive 6-5-4-3-2-1 then stop prednisone 10 mg tablet RxNorm: 639680 1 Tablet(s) PO daily 06/18/2017 08/25/2017 Inactive 6-5-4-3-2-1 then stop Bactrim DS 800 mg-160 mg tablet RxNorm: 260515 1 Tablet(s) PO BID 06/11/2017 06/14/2017 Inactive Bactrim DS 800 mg-160 mg tablet RxNorm: 085582 1 Tablet(s) PO BID 06/03/2017 06/10/2017 Inactive mupirocin 2 % topical ointment RxNorm: 839869 1 Application TOP BID 06/03/2017 08/25/2017 Inactive Lyrica 100 mg capsule RxNorm: 398809 1 Capsule(s) PO BID as needed 05/27/2017 06/23/2017 Inactive Keflex 500 mg capsule RxNorm: 317521 1 Capsule(s) PO TID 05/27/2017 06/02/2017 Inactive Lexapro 10 mg tablet RxNorm: 408868 1 Tablet(s) PO daily 05/27/2017 08/25/2017 Inactive hydrocodone 5 mg-acetaminophen 325 mg tablet RxNorm: 647123 1 Tablet(s) PO TID 05/27/2017 06/23/2017 Inactive hydrocodone 7.5 mg-acetaminophen 325 mg tablet RxNorm: 879260 1 Tablet(s) PO TID as needed 05/13/2017 05/25/2017 Inactive hydrocodone 7.5 mg-acetaminophen 325 mg tablet RxNorm: 427620 1 Tablet(s) PO TID as needed 05/13/2017 05/12/2017 Inactive cyclobenzaprine 5 mg tablet RxNorm: 582893 TAKE ONE TABLET BY MOUTH THREE TIMES DAILY NEEDED FOR MUSCLE SPASM 05/01/2017 05/05/2017 Inactive hydrocodone 5 mg-acetaminophen 325 mg tablet RxNorm: 514889 1 Tablet(s) PO TID as needed 04/24/2017 05/12/2017 Inactive cyclobenzaprine 5 mg tablet RxNorm: 947342 1 Tablet(s) PO TID as needed muscle spasms 04/24/2017 04/28/2017 Inactive diazepam 10 mg tablet RxNorm: 939276 1 Tablet(s) PO TID as needed anxiety 02/22/2017 04/19/2017 Inactive norethindrone acetate 1 mg-ethinyl estradiol 20 mcg tablet RxNorm: 2508811 1 Tablet(s) PO daily 12/18/2016 07/15/2017 Inactive EEMT 1.25 mg-2.5 mg tablet RxNorm: 127009 1 Tablet(s) PO daily 12/06/2016 03/05/2017 Inactive EEMT 1.25 mg-2.5 mg tablet RxNorm: 285901 1 Tablet(s) PO daily 12/06/2016 12/05/2016 Inactive Lexapro 10 mg tablet RxNorm: 993251 1 Tablet(s) PO daily 12/06/2016 05/04/2017 Inactive diazepam 10 mg tablet RxNorm: 144414 1 Tablet(s) PO TID 11/09/2016 12/07/2016 Inactive phentermine 37.5 mg tablet RxNorm: 720366 1 Tablet(s) PO daily 10/25/2016 08/23/2017 Inactive EEMT 1.25 mg-2.5 mg tablet RxNorm: 227401 1 Tablet(s) PO daily 10/25/2016 12/05/2016 Inactive phentermine 37.5 mg tablet RxNorm: 097441 1 Tablet(s) PO daily 09/20/2016 10/24/2016 Inactive Lexapro 10 mg tablet RxNorm: 532550 1 Tablet(s) PO daily 07/10/2016 12/05/2016 Inactive Lexapro 10 mg tablet RxNorm: 326668 1 Tablet(s) PO daily 06/12/2016 07/09/2016 Inactive norethindrone acetate 1 mg-ethinyl estradiol 20 mcg tablet RxNorm: 4481825 1 Tablet(s) PO daily 06/12/2016 12/17/2016 Inactive hydrocodone 10 mg-acetaminophen 325 mg tablet RxNorm: 888035 1 Tablet(s) PO TID No Start Date 05/12/2017 Inactive phentermine 37.5 mg tablet RxNorm: 150881 1 Tablet(s) PO daily No Start Date 09/19/2016 Inactive norethindrone acetate 1 mg-ethinyl estradiol 20 mcg tablet RxNorm: 4872350 1 Tablet(s) PO daily No Start Date 06/11/2016 Inactive EEMT 1.25 mg-2.5 mg tablet RxNorm: 343137 1 Tablet(s) PO daily No Start Date [...] 1: 128/74 Code: 8480-6 BMI: 31.1 Code: 65883-7 Heart Rate 1: 81 bpm Height: 5'2" SpO2: 97% Weight: 170 lbs 08/29/2018 Blood Pressure 1: 120/70 Code: 8480-6 BMI: 31.1 Code: 25662-9 Heart Rate 1: 65 bpm Height: 5'2" Weight: 170 lbs 07/18/2018 Blood Pressure 1: 126/88 Code: 8480-6 Heart Rate 1: 78 bpm Height: SpO2: 97% Weight: 07/16/2018 Blood Pressure 1: 130/78 Code: 8480-6 Heart Rate 1: 84 bpm Weight: 172 lbs 06/18/2018 Blood Pressure 1: 128/80 Code: 8480-6 BMI: 31.1 Code: 95127-1 Heart Rate 1: 80 bpm Height: 5'2" SpO2: 97% Weight: 170 lbs 02/28/2018 Blood Pressure 1: 120/78 Code: 8480-6 BMI: 31.6 Code: 84402-1 Heart Rate 1: 66 bpm Height: 5'2" SpO2: 98% Weight: 173 lbs 12/09/2017 Blood Pressure 1: 116/74 Code: 8480-6 BMI: 31.5 Code: 72055-5 Heart Rate 1: 74 bpm Height: 5'2" SpO2: 95% Weight: 172 lbs 10/21/2017 Blood Pressure 1: 136/82 Code: 8480-6 BMI: 30.4 Code: 79310-9 Heart Rate 1: 79 bpm Height: 5'2" SpO2: 97% Weight: 166 lbs 09/26/2017 Blood Pressure 1: 122/80 Code: 8480-6 BMI: 30.4 Code: 66687-4 Heart Rate 1: 63 bpm Height: 5'2" SpO2: 98% Weight: 166 lbs 08/27/2017 Blood Pressure 1: 132/70 Code: 8480-6 BMI: 30.7 Code: 80058-9 Heart Rate 1: 89 bpm Height: 5'2" SpO2: 98% Weight: 168 lbs 05/27/2017 Blood Pressure 1: 132/72 Code: 8480-6 BMI: 28.9 Code: 71752-6 Heart Rate 1: 72 bpm Height: 5'2" SpO2: 98% Weight: 158 lbs 04/24/2017 Blood Pressure 1: 140/76 Code: 8480-6 BMI: 29.3 Code: 30936-0 Heart Rate 1: 77 bpm Height: 5'2" SpO2: 97% Weight: 160 lbs 03/27/2017 Blood Pressure 1: 128/74 Code: 8480-6 BMI: 29.1 Code: 83225-3 Heart Rate 1: 74 bpm Height: 5'2" SpO2: 98% Temperature: 36.8 (C) / 98.3 (F) Weight: 159 lbs 10/25/2016 Blood Pressure 1: 116/74 Code: 8480-6 BMI: 28.9 Code: 41741-7 Heart Rate 1: 68 bpm Height: 5'2" SpO2: 99% Weight: 158 lbs 09/20/2016 Blood Pressure 1: 116/70 Code: 8480-6 Heart Rate 1: 72 bpm Weight: 150 lbs 08/24/2016 Blood Pressure 1: 118/62 Code: 8480-6 BMI: 27.6 Code: 09715-6 Heart Rate 1: 63 bpm Height: 5'2" SpO2: 99% Weight: 151 lbs 06/12/2016 Blood Pressure 1: 122/74 Code: 8480-6 BMI: 26.9 Code: 21014-3 Heart Rate 1: 52 bpm Height: 5'2" [...] states[ICD10: N95.1] [facility] CPT-4: 03067 10/09/2018 ([id number]) Miscellaneous no charge Diagnosis: Overweight[ICD10: E66.3] [facility] CPT-4: 83500 08/29/2018 [id number] EST. PATIENT, LEVEL III Diagnosis: Generalized anxiety disorder[ICD10: F41.1] Diagnosis: Major depressive disorder, single episode, moderate[ICD10: F32.1] [facility] Jama MD, [facility] CPT-4: 49416 07/18/2018 ([id number]) Miscellaneous no charge Diagnosis: Overweight[ICD10: E66.3] [facility], [facility] CPT-4: 25043 07/16/2018 00917 EST. PATIENT, LEVEL III Diagnosis: Chronic pain syndrome[ICD10: G89.4] Diagnosis: Overweight[ICD10: E66.3] Veda Jama MD, [facility] CPT-4: 80459 06/18/2018 [id number] EST. PATIENT, LEVEL IV Diagnosis: Chronic pain syndrome[ICD10: G89.4] Diagnosis: Overweight[ICD10: E66.3] Veda Jama MD, [facility] CPT-4: 14174 02/28/2018 90225 EST. PATIENT, LEVEL III Diagnosis: Chronic pain syndrome[ICD10: G89.4] Diagnosis: Overweight[ICD10: E66.3] Veda Jama MD, [facility] CPT-4: 57629 12/09/2017 [id number] EST. PATIENT, LEVEL III Diagnosis: Chronic pain syndrome[ICD10: G89.4] Diagnosis: Overweight[ICD10: E66.3] Veda Jama MD, [facility] CPT-4: 32148 10/21/2017 ([id number]) Miscellaneous no charge Diagnosis: Overweight[ICD10: E66.3] [facility], [facility] CPT-4: 06959 09/26/2017 35466 EST. PATIENT, LEVEL III Diagnosis: Chronic pain syndrome[ICD10: G89.4] Diagnosis: Overweight[ICD10: E66.3] Veda Jama MD, [facility] CPT-4: 21062 08/27/2017 42710 EST. PATIENT, LEVEL III Diagnosis: Chronic pain syndrome[ICD10: G89.4] Diagnosis: Generalized anxiety disorder[ICD10: F41.1] Diagnosis: Major depressive disorder, single episode, moderate[ICD10: F32.1] Diagnosis: Cellulitis of right lower limb[ICD10: L03.115] Veda Jama MD, [facility] CPT-4: 08333 05/27/2017 ([id number]) 08291 EST. PATIENT, LEVEL IV Diagnosis: Generalized anxiety disorder[ICD10: F41.1] Diagnosis: Major depressive disorder, single episode, moderate[ICD10: F32.1] Diagnosis: Menopausal and female climacteric states[ICD10: N95.1] Diagnosis: Chronic pain syndrome[ICD10: G89.4] [facility] CPT- 4: 11677 04/24/2017 ([id number]) PREV VISIT EST AGE 18-39 Diagnosis: Encounter for gynecological examination (general) (routine) without abnormal findings[ICD10: Z01.419] [facility] CPT-4: 42082 03/27/2017 ([id number]) 03553 EST. PATIENT, LEVEL III Diagnosis: Overweight[ICD10: E66.3] [facility] CPT-4: 08096 10/25/2016 ([id number]) Miscellaneous no charge Diagnosis: Overweight[ICD10: E66.3] [facility] CPT-4: 71947 09/20/2016 28570 EST. PATIENT, LEVEL IV Diagnosis: Other fatigue[ICD10: R53.83] Diagnosis: Overweight[ICD10: E66.3] Diagnosis: Generalized anxiety disorder[ICD10: F41.1] [facility] CPT-4: 18214 08/24/2016 ([id number]) OFFICE VISIT, NEW - LEVEL 4 Diagnosis: Generalized anxiety disorder[ICD10: F41.1] Diagnosis: Major depressive disorder, single episode, moderate[ICD10: F32.1] [facility] CPT-4: 70120 06/12/2016 Plan of Care Planned Activity Notes [...] clinic with any questions or concerns. 10/09/2018 Patient Education: Patient Medication Summary Completed [...] this patient. 07/18/2018 Appointment: Veda Duenas WPtel: [facility]4 [facility] (15 min) Moderate 07/18/2018 Patient Education: Patient [...] check. 06/18/2018 Appointment: Veda Duenas WPtel: [phone] [facility] (15 min) Moderate 06/18/2018 Patient [...] check. 02/28/2018 Appointment[phone] (30 min) Complex 02/28/2018 Patient Education: Patient Medication Summary Completed 02/28/2018 Patient Education: Obesity Completed 02/28/2018 Appointment: Veda Duenas WPtel: [address] [place], [place] [phone] (15 min) Moderate 02/27/2018 Visit Plan: Chronic [...] weight check. 12/09/2017 Appointment: Veda Duenas WPtel: [address] [place], [place] [phone] (15 min) Moderate 12/09/2017 Patient Education: Patient [...] weight check. 10/21/2017 Appointment: Veda Duenas WPtel: [address] [place], [place] [phone] (15 min) Moderate 10/21/2017 Patient Education: Patient Medication Summary Completed 10/21/2017 Patient Education: Obesity Completed 10/21/2017 Appointment: Nurse Visit 09/26/2017 Patient Education: Patient Medication Summary Completed 09/26/2017 Appointment: Veda Duenas WPtel: [address] [place], [place] [phone] (30 min) Complex 08/30/2017 Visit Plan: Chronic [...] warmth, discharge. 05/27/2017 Appointment: Veda Duenas WPtel: [address] [place], [place] [id number] (30 min) Complex 05/27/2017 Patient Education: Patient [...] with new RX. 04/24/2017 Appointment: Veda Duenasl: [facility]5 [facility] (30 min) Complex 04/24/2017 Patient [...] hormone compounding per pharmacy. 03/27/2017 Appointment: Veda Duenasl: [address] [place], [place] [phone] [facility] 03/27/2017 Patient Education: Patient Medication Summary Completed 03/27/2017 Care Plan: BMI Above normal followup SELF-MGMT EDUC & TRAIN 1 PT Pending 11/07/2016 Visit Plan: Obesity - chronic issue with this patient. The pt has been counseled about diet changes, calorie restriction, and need to exercise. Pt will RTC in one month for weight check. 10/25/2016 Appointment: Veda Duenasl: [facility]5 [facility] (15 min) Moderate 10/25/2016 Patient Education: [...] month for weight check. 08/24/2016 Appointment: Radha Mcgowantel: [facility] (30 min) Complex 08/24/2016 Appointment: Radha Mcgowantel: [address] [place] [address] (30 min) Complex 08/24/2016 Appointment: Radha Mcgowantel: [address] [place] [address] (30 min) Complex 08/24/2016 Patient Education: Patient [...] for this patient. 06/12/2016 Appointment: Radha Mcgowantel: [facility] [address] New Patient 06/12/2016 Patient Education: Patient [...]
--- OUTSIDE RECORDS SUMMARY | 2019-07-01 06:49 | XMS REPORT | CCD ---
Author Author Veda Duenas Organization Juju Jama MD, [facility] Address [address] [place] [address] Phone Care Team Providers Care Urinalysis Technician Name Role Phone PP Unavailable CCM Unavailable Summary Purpose Interface Exchange Insurance Providers Payer name Policy type / Coverage type Covered constitution party ID Effective Begin Date Effective End Date Blue Cross [facility] Blue Cross/[id number] Unknown Family history Father Diagnosis Age At Onset Diabetes Unknown Hyperlipidemia Unknown Hypertension Unknown Heart Attack Unknown Social History Social History Element Codes Description Effective Dates Marital status Unknown CJ 06/12/2016 Number of children Unknown 3 06/12/[address]: 205806412 Never smoker 06/12/[address]: 651642847 Never drinks alcohol 06/12/2016 Allergies, Adverse Reactions, Alerts Substance Reaction Codes Entered Date Inactivated Date Status * NO KNOWN DRUG ALLERGIES Unknown 06/12/2016 No Inactive Date Active Past Medical History Illness Codes Condition Status Onset Date Resolved Date Overweight ICD-9: 278.02 ICD-10: E66.3 Active 10/24/2016 Unknown Chronic pain syndrome ICD- 9: 338.4 ICD-10: G89.4 Active 04/24/2017 Unknown Cellulitis of right lower limb ICD-9: 682.7 ICD-10: L03.115 Active 05/27/2017 Unknown Generalized anxiety disorder ICD-9: 300.02 ICD-10: [...] Condition Status Overweight ICD-9: 278.02 ICD-10: E66.3 10/24/2016 Active Chronic pain syndrome ICD- 9: 338.4 ICD-10: G89.4 04/24/2017 Active Cellulitis of right lower limb ICD-9: 682.7 ICD-10: L03.115 05/27/2017 Active Generalized anxiety disorder ICD-9: 300.02 ICD-10: [...] Start Date Stop Date Status Fill Instructions diazepam 10 mg tablet RxNorm: 121980 1 Tablet(s) PO TID as needed anxiety 07/11/2018 09/08/2018 Active hydrocodone 5 mg-acetaminophen 325 mg tablet RxNorm: 671668 1-1.5 Tablet(s) PO QID as needed 06/18/2018 07/17/2018 Active Zorvolex 35 mg capsule RxNorm: 9908906 1 Capsule(s) PO TID 06/18/2018 No Stop Date Active cyclobenzaprine 5 mg tablet RxNorm: 294225 TAKE ONE TABLET BY MOUTH THREE TIMES DAILY NEEDED FOR MUSCLE SPASM 06/04/2018 No Stop Date Active hydrocodone 5 mg-acetaminophen 325 mg tablet RxNorm: 902319 1-1.5 Tablet(s) PO QID as needed 05/26/2018 06/17/2018 Inactive cyclobenzaprine 5 mg tablet RxNorm: 927041 TAKE ONE TABLET BY MOUTH THREE TIMES DAILY NEEDED FOR MUSCLE SPASM 05/07/2018 06/03/2018 Inactive ibuprofen 800 mg tablet RxNorm: 624028 TAKE ONE TABLET BY MOUTH THREE TIMES DAILY NEEDED 04/28/2018 No Stop Date Active hydrocodone 5 mg-acetaminophen 325 mg tablet RxNorm: 975961 1-1.5 Tablet(s) PO QID as needed 04/28/2018 05/25/2018 Inactive diazepam 10 mg tablet RxNorm: 978922 1 Tablet(s) PO TID as needed anxiety 04/22/2018 06/19/2018 Inactive hydrocodone 5 mg-acetaminophen 325 mg tablet RxNorm: 922307 1-1.5 Tablet(s) PO QID as needed 03/25/2018 04/23/2018 Inactive cyclobenzaprine 5 mg tablet RxNorm: 927392 TAKE ONE TABLET BY MOUTH THREE TIMES DAILY NEEDED FOR MUSCLE SPASM 03/17/2018 05/06/2018 Inactive phentermine 37.5 mg tablet RxNorm: 282886 1 Tablet(s) PO daily 03/02/2018 No Stop Date Active hydrocodone 5 mg-acetaminophen 325 mg tablet RxNorm: 092147 1-1.5 Tablet(s) PO QID as needed 03/02/2018 03/24/2018 Inactive hydrocodone 5 mg-acetaminophen 325 mg tablet RxNorm: 671813 1-1.5 Tablet(s) PO QID as needed 02/03/2018 03/01/2018 Inactive diazepam 10 mg tablet RxNorm: 536355 1 Tablet(s) PO TID as needed anxiety 01/01/2018 02/28/2018 Inactive Lyrica 100 mg capsule RxNorm: 134435 1 Capsule(s) PO BID as needed 12/09/2017 03/08/2018 Inactive hydrocodone 5 mg-acetaminophen 325 mg tablet RxNorm: 888664 1-1.5 Tablet(s) PO QID as needed 12/09/2017 01/07/2018 Inactive ibuprofen 800 mg tablet RxNorm: 052995 1 Tablet(s) PO TID as needed 12/09/2017 01/07/2018 Inactive cyclobenzaprine 5 mg tablet RxNorm: 896167 TAKE ONE TABLET BY MOUTH THREE TIMES DAILY NEEDED FOR MUSCLE SPASM 12/03/2017 03/16/2018 Inactive hydrocodone 5 mg-acetaminophen 325 mg tablet RxNorm: 705933 1-1.5 Tablet(s) PO QID as needed 10/21/2017 11/19/2017 Inactive hydrocodone 7.5 mg-acetaminophen 325 mg tablet RxNorm: 287270 1 Tablet(s) PO QID as needed 09/26/2017 10/20/2017 Inactive phentermine 37.5 mg tablet RxNorm: 474695 1 Tablet(s) PO daily 09/26/2017 10/01/2017 Inactive Lyrica 100 mg capsule RxNorm: 330643 1 Capsule(s) PO BID as needed 09/12/2017 12/08/2017 Inactive hydrocodone 7.5 mg-acetaminophen 325 mg tablet RxNorm: 929720 1 Tablet(s) PO QID as needed 08/27/2017 09/23/2017 Inactive Belviq XR 20 mg tablet,extended release RxNorm: 5201232 1 Tablet(s) PO daily 08/27/2017 09/23/2017 Inactive cyclobenzaprine 5 mg tablet RxNorm: 858559 1 Tablet(s) PO TID as needed muscle spasms 08/19/2017 08/23/2017 Inactive hydrocodone 7.5 mg-acetaminophen 325 mg tablet RxNorm: 404683 1 Tablet(s) PO QID as needed 08/02/2017 08/26/2017 Inactive hydrocodone 7.5 mg-acetaminophen 325 mg tablet RxNorm: 242365 1 Tablet(s) PO TID as needed 08/02/2017 08/01/2017 Inactive diazepam 10 mg tablet RxNorm: 364423 1 Tablet(s) PO TID as needed anxiety 07/24/2017 02/02/2018 Inactive hydrocodone 7.5 mg-acetaminophen 325 mg tablet RxNorm: 550109 1 Tablet(s) PO TID as needed 07/11/2017 08/01/2017 Inactive Lyrica 100 mg capsule RxNorm: 823681 1 Capsule(s) PO BID as needed 06/24/2017 09/20/2017 Inactive hydrocodone 5 mg-acetaminophen 325 mg tablet RxNorm: 882320 1 Tablet(s) PO TID 06/24/2017 07/30/2017 Inactive prednisone 10 mg tablet RxNorm: 975291 1 Tablet(s) PO daily 06/18/2017 06/17/2017 Inactive 6-5-4-3-2-1 then stop prednisone 10 mg tablet RxNorm: 753649 1 Tablet(s) PO daily 06/18/2017 08/25/2017 Inactive 6-5-4-3-2-1 then stop Bactrim DS 800 mg-160 mg tablet RxNorm: 445706 1 Tablet(s) PO BID 06/11/2017 06/14/2017 Inactive Bactrim DS 800 mg-160 mg tablet RxNorm: 796205 1 Tablet(s) PO BID 06/03/2017 06/10/2017 Inactive mupirocin 2 % topical ointment RxNorm: 125477 1 Application TOP BID 06/03/2017 08/25/2017 Inactive Lyrica 100 mg capsule RxNorm: 877151 1 Capsule(s) PO BID as needed 05/27/2017 06/23/2017 Inactive Keflex 500 mg capsule RxNorm: 532664 1 Capsule(s) PO TID 05/27/2017 06/02/2017 Inactive Lexapro 10 mg tablet RxNorm: 282787 1 Tablet(s) PO daily 05/27/2017 08/25/2017 Inactive hydrocodone 5 mg-acetaminophen 325 mg tablet RxNorm: 099142 1 Tablet(s) PO TID 05/27/2017 06/23/2017 Inactive hydrocodone 7.5 mg-acetaminophen 325 mg tablet RxNorm: 058244 1 Tablet(s) PO TID as needed 05/13/2017 05/25/2017 Inactive hydrocodone 7.5 mg-acetaminophen 325 mg tablet RxNorm: 908461 1 Tablet(s) PO TID as needed 05/13/2017 05/12/2017 Inactive cyclobenzaprine 5 mg tablet RxNorm: 275701 TAKE ONE TABLET BY MOUTH THREE TIMES DAILY NEEDED FOR MUSCLE SPASM 05/01/2017 05/05/2017 Inactive hydrocodone 5 mg-acetaminophen 325 mg tablet RxNorm: 792886 1 Tablet(s) PO TID as needed 04/24/2017 05/12/2017 Inactive cyclobenzaprine 5 mg tablet RxNorm: 462460 1 Tablet(s) PO TID as needed muscle spasms 04/24/2017 04/28/2017 Inactive diazepam 10 mg tablet RxNorm: 567700 1 Tablet(s) PO TID as needed anxiety 02/22/2017 04/19/2017 Inactive norethindrone acetate 1 mg-ethinyl estradiol 20 mcg tablet RxNorm: 8590856 1 Tablet(s) PO daily 12/18/2016 07/15/2017 Inactive EEMT 1.25 mg-2.5 mg tablet RxNorm: 478611 1 Tablet(s) PO daily 12/06/2016 03/05/2017 Inactive EEMT 1.25 mg-2.5 mg tablet RxNorm: 818610 1 Tablet(s) PO daily 12/06/2016 12/05/2016 Inactive Lexapro 10 mg tablet RxNorm: 433880 1 Tablet(s) PO daily 12/06/2016 05/04/2017 Inactive diazepam 10 mg tablet RxNorm: 433280 1 Tablet(s) PO TID 11/09/2016 12/07/2016 Inactive phentermine 37.5 mg tablet RxNorm: 174072 1 Tablet(s) PO daily 10/25/2016 08/23/2017 Inactive EEMT 1.25 mg-2.5 mg tablet RxNorm: 428023 1 Tablet(s) PO daily 10/25/2016 12/05/2016 Inactive phentermine 37.5 mg tablet RxNorm: 335796 1 Tablet(s) PO daily 09/20/2016 10/24/2016 Inactive Lexapro 10 mg tablet RxNorm: 498136 1 Tablet(s) PO daily 07/10/2016 12/05/2016 Inactive Lexapro 10 mg tablet RxNorm: 719318 1 Tablet(s) PO daily 06/12/2016 07/09/2016 Inactive norethindrone acetate 1 mg-ethinyl estradiol 20 mcg tablet RxNorm: 5382713 1 Tablet(s) PO daily 06/12/2016 12/17/2016 Inactive hydrocodone 10 mg-acetaminophen 325 mg tablet RxNorm: 970182 1 Tablet(s) PO TID No Start Date 05/12/2017 Inactive phentermine 37.5 mg tablet RxNorm: 243328 1 Tablet(s) PO daily No Start Date 09/19/2016 Inactive norethindrone acetate 1 mg-ethinyl estradiol 20 mcg tablet RxNorm: 6259435 1 Tablet(s) PO daily No Start Date 06/11/2016 Inactive EEMT 1.25 mg-2.5 mg tablet RxNorm: 761804 1 Tablet(s) PO daily No Start Date 10/24/2016 Inactive Medication Administered No Medication Administered data Immunizations No Immunization data Assessments Condition Codes Effective Dates Overweight ICD-10: E66.3 ICD-9: 278.02 07/16/2018 Chronic pain syndrome ICD-10: G89.4 ICD-9: 338.4 06/18/2018 Cellulitis of right lower limb ICD-10: L03.115 ICD-9: 682.7 06/03/2017 Generalized anxiety disorder ICD-10: F41.1 ICD-9: 300.02 05/27/2017 Major depressive disorder, single episode, moderate ICD-10: F32.1 ICD-9: 296.22 05/27/2017 Menopausal and female climacteric states ICD-10: N95.1 ICD-9: 627.2 04/24/2017 Encounter for gynecological examination (general) (routine) without abnormal findings ICD-10: Z01.419 ICD-9: V72.31 03/27/2017 Other fatigue ICD-10: R53.83 ICD-9: 780.79 08/24/2016 Reason For Visit Reason For Visit Effective Dates Notes medication follow up 06/18/2018 hydrocodone ankle pain 02/28/2018 medication follow up 12/09/2017 hydrocodone medication follow up 10/21/2017 medication follow up 08/27/2017 medication follow up 05/27/2017 medication follow up 04/24/2017 well woman exam (18-39 years) 03/27/2017 medication follow up 10/25/2016 weight gain/obesity 08/24/2016 depression 06/12/2016 Results No Results data Review of Systems System Result Effective Dates Constitutional No recent illness 06/18/2018 Constitutional No [...] No Procedures data Vital Signs Date Vital 07/16/2018 Blood Pressure 1: 130/78 Code: 8480-6 Heart Rate 1: 84 bpm Weight: 172 lbs 06/18/2018 Blood Pressure 1: 128/80 Code: 8480-6 BMI: 31.1 Code: 27195-3 Heart Rate 1: 80 bpm Height: 5'2" SpO2: 97% Weight: 170 lbs 02/28/2018 Blood Pressure 1: 120/78 Code: 8480-6 BMI: 31.6 Code: 17500-1 Heart Rate 1: 66 bpm Height: 5'2" SpO2: 98% Weight: 173 lbs 12/09/2017 Blood Pressure 1: 116/74 Code: 8480-6 BMI: 31.5 Code: 16716-5 Heart Rate 1: 74 bpm Height: 5'2" SpO2: 95% Weight: 172 lbs 10/21/2017 Blood Pressure 1: 136/82 Code: 8480-6 BMI: 30.4 Code: 02295-8 Heart Rate 1: 79 bpm Height: 5'2" SpO2: 97% Weight: 166 lbs 09/26/2017 Blood Pressure 1: 122/80 Code: 8480-6 BMI: 30.4 Code: 52240-4 Heart Rate 1: 63 bpm Height: 5'2" SpO2: 98% Weight: 166 lbs 08/27/2017 Blood Pressure 1: 132/70 Code: 8480-6 BMI: 30.7 Code: 34634-7 Heart Rate 1: 89 bpm Height: 5'2" SpO2: 98% Weight: 168 lbs 05/27/2017 Blood Pressure 1: 132/72 Code: 8480-6 BMI: 28.9 Code: 53176-1 Heart Rate 1: 72 bpm Height: 5'2" SpO2: 98% Weight: 158 lbs 04/24/2017 Blood Pressure 1: 140/76 Code: 8480-6 BMI: 29.3 Code: 52937-1 Heart Rate 1: 77 bpm Height: 5'2" SpO2: 97% Weight: 160 lbs 03/27/2017 Blood Pressure 1: 128/74 Code: 8480-6 BMI: 29.1 Code: 42914-8 Heart Rate 1: 74 bpm Height: 5'2" SpO2: 98% Temperature: 36.8 (C) / 98.3 (F) Weight: 159 lbs 10/25/2016 Blood Pressure 1: 116/74 Code: 8480-6 BMI: 28.9 Code: 65271-5 Heart Rate 1: 68 bpm Height: 5'2" SpO2: 99% Weight: 158 lbs 09/20/2016 Blood Pressure 1: 116/70 Code: 8480-6 Heart Rate 1: 72 bpm Weight: 150 lbs 08/24/2016 Blood Pressure 1: 118/62 Code: 8480-6 BMI: 27.6 Code: 29438-7 Heart Rate 1: 63 bpm Height: 5'2" SpO2: 99% Weight: 151 lbs 06/12/2016 Blood Pressure 1: 122/74 Code: 8480-6 BMI: 26.9 Code: 76068-7 Heart Rate 1: 52 bpm Height: 5'2" SpO2: 97% Weight: 147 lbs Functional Status No Functional Status data History of Present Illness Symptom Name Status Result Effective Date Notes medication follow up Location oral intake 06/18/2018 [...] years) Pap Smear last normal performed on --__ 03/27/2017 None well woman exam (18-39 [...] data Encounters Encounter Performer Location Codes Date (70324) Miscellaneous no charge Diagnosis: Overweight[ICD10: E66.3] Juju Jama MD, [facility] CPT-4: 72514 07/16/2018 12364 EST. PATIENT, LEVEL III Diagnosis: Chronic pain syndrome[ICD10: G89.4] Diagnosis: Overweight[ICD10: E66.3] Veda Jama MD, [facility] CPT-4: 67026 06/18/2018 16641 EST. PATIENT, LEVEL IV Diagnosis: Chronic pain syndrome[ICD10: G89.4] Diagnosis: Overweight[ICD10: E66.3] Veda Jama MD, [facility] CPT-4: 81493 02/28/2018 61557 EST. PATIENT, LEVEL III Diagnosis: Chronic pain syndrome[ICD10: G89.4] Diagnosis: Overweight[ICD10: E66.3] Veda Jama MD, [facility] CPT-4: 84921 12/09/2017 10019 EST. PATIENT, LEVEL III Diagnosis: Chronic pain syndrome[ICD10: G89.4] Diagnosis: Overweight[ICD10: E66.3] Veda Jama MD, [facility] CPT-4: 00591 10/21/2017 ([id number]) Miscellaneous no charge Diagnosis: Overweight[ICD10: E66.3] Juju Jama MD, [facility] CPT-4: 70966 09/26/2017 13180 EST. PATIENT, LEVEL III Diagnosis: Chronic pain syndrome[ICD10: G89.4] Diagnosis: Overweight[ICD10: E66.3] Veda Jama MD, [facility] CPT-4: 93607 08/27/2017 68474 EST. PATIENT, LEVEL III Diagnosis: Chronic pain syndrome[ICD10: G89.4] Diagnosis: Generalized anxiety disorder[ICD10: F41.1] Diagnosis: Major depressive disorder, single episode, moderate[ICD10: F32.1] Diagnosis: Cellulitis of right lower limb[ICD10: L03.115] Veda Jama MD, [facility] CPT-4: 37536 05/27/2017 ([id number]) 63713 EST. PATIENT, LEVEL IV Diagnosis: Generalized anxiety disorder[ICD10: F41.1] Diagnosis: Major depressive disorder, single episode, moderate[ICD10: F32.1] Diagnosis: Menopausal and female climacteric states[ICD10: N95.1] Diagnosis: Chronic pain syndrome[ICD10: G89.4] Veda Jama MD, [facility] CPT- 4: 97514 04/24/2017 ([id number]) PREV VISIT EST AGE 18-39 Diagnosis: Encounter for gynecological examination (general) (routine) without abnormal findings[ICD10: Z01.419] Veda Jama MD, [facility] CPT-4: 52777 03/27/2017 ([id number]) 21454 EST. PATIENT, LEVEL III Diagnosis: Overweight[ICD10: E66.3] Veda Jama MD, [facility] CPT-4: 64752 10/25/2016 ([id number]) Miscellaneous no charge Diagnosis: Overweight[ICD10: E66.3] Radha Jama MD, [facility] CPT-4: 91510 09/20/2016 60916 EST. PATIENT, LEVEL IV Diagnosis: Other fatigue[ICD10: R53.83] Diagnosis: Overweight[ICD10: E66.3] Diagnosis: Generalized anxiety disorder[ICD10: F41.1] [facility] CPT-4: 66718 08/24/2016 ([id number]) OFFICE VISIT, NEW - LEVEL 4 Diagnosis: Generalized anxiety disorder[ICD10: F41.1] Diagnosis: Major depressive disorder, single episode, moderate[ICD10: F32.1] Veda Jama MD, [facility] CPT-4: 45787 06/12/2016 Plan of Care Planned Activity Notes Codes Status Date Patient Education: Patient Medication Summary Completed 07/16/2018 [...] weight check. 06/18/2018 Appointment: Veda Duenas WPtel: [address] [place], [place] [phone] (15 min) Moderate 06/18/2018 Patient Education: Patient [...] weight check. 02/28/2018 Appointment: Veda Duenas WPtel: [facility] (30 min) Complex 02/28/2018 Patient Education: Patient Medication Summary Completed 02/28/2018 Patient Education: Obesity Completed 02/28/2018 Appointment: Veda Duenas WPtel: [address] [place], [place] [phone] (15 min) Moderate 02/27/2018 Visit Plan: Chronic [...] for weight check. 12/09/2017 Appointment: Veda Duenastel: [facility] (15 min) Moderate 12/09/2017 Patient Education: [...] check. 10/21/2017 Appointment: Veda Duenas WPtel: [phone] [facility] (15 min) Moderate 10/21/2017 Patient Education: Patient Medication Summary Completed 10/21/2017 Patient Education: Obesity Completed 10/21/2017 Appointment: Nurse Visit 09/26/2017 Patient Education: Patient Medication Summary Completed 09/26/2017 [phone] ([facility]) [facility] 08/30/2017 [...] discharge. 05/27/2017 App[facility]ment[phone] [facility] (30 min) Complex 05/27/2017 [...] RX. 04/24/2017 App[phone] [facility] (30 min) Complex 04/24/2017 [...] Appointment: Veda Duenas WPtel: [facility] [place] 03/27/2017 Patient Education: Patient [...] Appointment: Veda Duenas WPtel: [facility] (15 min) Moderate 10/25/2016 Patient Education: Patient [...] check. 08/24/2016 Appointment: Radha Mcgowan WPtel: [phone] [phone] (30 min) Complex 08/24/2016 Appointment: Radha Mcgowan WPtel: [phone] [phone] (30 min) Complex 08/24/2016 Appointment: [facility]gowan [phone] (30 min) Complex 08/24/2016 Patient Education: Patient [...] patient. 06/12/2016 Appointment: [facility] Mcgowan [facility] [phone] [phone] New Patient 06/12/2016 Patient Education: Patient [...]
--- OUTSIDE RECORDS SUMMARY | 2019-07-01 06:50 | XMS REPORT | CCD ---
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 Name Role Phone PP Unavailable CCM Unavailable Summary Purpose Interface Exchange Insurance Providers Payer name Policy type / Coverage type Covered green party ID Effective Begin Date Effective End Date [id number] Unknown Family history Father Diagnosis Age At Onset Diabetes Unknown Hyperlipidemia Unknown Hypertension Unknown Heart Attack Unknown Social History Social History Element Codes Description Effective Dates Marital status Unknown CJ 06/12/2016 Number of children Unknown 3 06/12/[address]: 026832904 Never smoker 06/12/[address]: 724163801 Never drinks alcohol 06/12/2016 Allergies, Adverse Reactions, Alerts Substance Reaction Codes Entered Date Inactivated Date Status * NO KNOWN DRUG ALLERGIES Unknown 06/12/2016 No Inactive Date Active Past Medical History Illness Codes Condition Status Onset Date Resolved Date Chronic pain syndrome ICD- 9: 338.4 ICD-10: G89.4 Active 04/24/2017 Unknown Overweight ICD-9: 278.02 ICD-10: E66.3 Active 10/24/2016 Unknown Cellulitis of right lower limb ICD-9: [...] 04/24/2017 Active Overweight ICD-9: 278.02 ICD-10: E66.3 10/24/2016 Active Cellulitis of right lower limb ICD-9: [...] Fill Instructions diazepam 10 mg tablet RxNorm: 975790 1 Tablet(s) PO TID as needed anxiety 07/11/2018 09/08/2018 Active hydrocodone 5 mg-acetaminophen 325 mg tablet RxNorm: 430127 1-1.5 Tablet(s) PO QID as needed 06/18/2018 07/17/2018 Active Zorvolex 35 mg capsule RxNorm: 0525637 1 Capsule(s) PO TID 06/18/2018 No Stop Date Active cyclobenzaprine 5 mg tablet RxNorm: 551289 TAKE ONE TABLET BY MOUTH THREE TIMES DAILY NEEDED FOR MUSCLE SPASM 06/04/2018 No Stop Date Active hydrocodone 5 mg-acetaminophen 325 mg tablet RxNorm: 817154 1-1.5 Tablet(s) PO QID as needed 05/26/2018 06/17/2018 Inactive cyclobenzaprine 5 mg tablet RxNorm: 220727 TAKE ONE TABLET BY MOUTH THREE TIMES DAILY NEEDED FOR MUSCLE SPASM 05/07/2018 06/03/2018 Inactive ibuprofen 800 mg tablet RxNorm: 662108 TAKE ONE TABLET BY MOUTH THREE TIMES DAILY NEEDED 04/28/2018 No Stop Date Active hydrocodone 5 mg-acetaminophen 325 mg tablet RxNorm: 232080 1-1.5 Tablet(s) PO QID as needed 04/28/2018 05/25/2018 Inactive diazepam 10 mg tablet RxNorm: 875252 1 Tablet(s) PO TID as needed anxiety 04/22/2018 06/19/2018 Inactive hydrocodone 5 mg-acetaminophen 325 mg tablet RxNorm: 557711 1-1.5 Tablet(s) PO QID as needed 03/25/2018 04/23/2018 Inactive cyclobenzaprine 5 mg tablet RxNorm: 740627 TAKE ONE TABLET BY MOUTH THREE TIMES DAILY NEEDED FOR MUSCLE SPASM 03/17/2018 05/06/2018 Inactive phentermine 37.5 mg tablet RxNorm: 700417 1 Tablet(s) PO daily 03/02/2018 No Stop Date Active hydrocodone 5 mg-acetaminophen 325 mg tablet RxNorm: 397968 1-1.5 Tablet(s) PO QID as needed 03/02/2018 03/24/2018 Inactive hydrocodone 5 mg-acetaminophen 325 mg tablet RxNorm: 477947 1-1.5 Tablet(s) PO QID as needed 02/03/2018 03/01/2018 Inactive diazepam 10 mg tablet RxNorm: 216277 1 Tablet(s) PO TID as needed anxiety 01/01/2018 02/28/2018 Inactive Lyrica 100 mg capsule RxNorm: 044067 1 Capsule(s) PO BID as needed 12/09/2017 03/08/2018 Inactive hydrocodone 5 mg-acetaminophen 325 mg tablet RxNorm: 320637 1-1.5 Tablet(s) PO QID as needed 12/09/2017 01/07/2018 Inactive ibuprofen 800 mg tablet RxNorm: 317941 1 Tablet(s) PO TID as needed 12/09/2017 01/07/2018 Inactive cyclobenzaprine 5 mg tablet RxNorm: 615919 TAKE ONE TABLET BY MOUTH THREE TIMES DAILY NEEDED FOR MUSCLE SPASM 12/03/2017 03/16/2018 Inactive hydrocodone 5 mg-acetaminophen 325 mg tablet RxNorm: 398666 1-1.5 Tablet(s) PO QID as needed 10/21/2017 11/19/2017 Inactive hydrocodone 7.5 mg-acetaminophen 325 mg tablet RxNorm: 755654 1 Tablet(s) PO QID as needed 09/26/2017 10/20/2017 Inactive phentermine 37.5 mg tablet RxNorm: 304283 1 Tablet(s) PO daily 09/26/2017 10/01/2017 Inactive Lyrica 100 mg capsule RxNorm: 059810 1 Capsule(s) PO BID as needed 09/12/2017 12/08/2017 Inactive hydrocodone 7.5 mg-acetaminophen 325 mg tablet RxNorm: 705356 1 Tablet(s) PO QID as needed 08/27/2017 09/23/2017 Inactive Belviq XR 20 mg tablet,extended release RxNorm: 5432817 1 Tablet(s) PO daily 08/27/2017 09/23/2017 Inactive cyclobenzaprine 5 mg tablet RxNorm: 880607 1 Tablet(s) PO TID as needed muscle spasms 08/19/2017 08/23/2017 Inactive hydrocodone 7.5 mg-acetaminophen 325 mg tablet RxNorm: 403717 1 Tablet(s) PO QID as needed 08/02/2017 08/26/2017 Inactive hydrocodone 7.5 mg-acetaminophen 325 mg tablet RxNorm: 891421 1 Tablet(s) PO TID as needed 08/02/2017 08/01/2017 Inactive diazepam 10 mg tablet RxNorm: 275321 1 Tablet(s) PO TID as needed anxiety 07/24/2017 02/02/2018 Inactive hydrocodone 7.5 mg-acetaminophen 325 mg tablet RxNorm: 746297 1 Tablet(s) PO TID as needed 07/11/2017 08/01/2017 Inactive Lyrica 100 mg capsule RxNorm: 258057 1 Capsule(s) PO BID as needed 06/24/2017 09/20/2017 Inactive hydrocodone 5 mg-acetaminophen 325 mg tablet RxNorm: 890287 1 Tablet(s) PO TID 06/24/2017 07/30/2017 Inactive prednisone 10 mg tablet RxNorm: 396239 1 Tablet(s) PO daily 06/18/2017 06/17/2017 Inactive 6-5-4-3-2-1 then stop prednisone 10 mg tablet RxNorm: 052733 1 Tablet(s) PO daily 06/18/2017 08/25/2017 Inactive 6-5-4-3-2-1 then stop Bactrim DS 800 mg-160 mg tablet RxNorm: 818590 1 Tablet(s) PO BID 06/11/2017 06/14/2017 Inactive Bactrim DS 800 mg-160 mg tablet RxNorm: 634644 1 Tablet(s) PO BID 06/03/2017 06/10/2017 Inactive mupirocin 2 % topical ointment RxNorm: 912846 1 Application TOP BID 06/03/2017 08/25/2017 Inactive Lyrica 100 mg capsule RxNorm: 250200 1 Capsule(s) PO BID as needed 05/27/2017 06/23/2017 Inactive Keflex 500 mg capsule RxNorm: 225380 1 Capsule(s) PO TID 05/27/2017 06/02/2017 Inactive Lexapro 10 mg tablet RxNorm: 405524 1 Tablet(s) PO daily 05/27/2017 08/25/2017 Inactive hydrocodone 5 mg-acetaminophen 325 mg tablet RxNorm: 334669 1 Tablet(s) PO TID 05/27/2017 06/23/2017 Inactive hydrocodone 7.5 mg-acetaminophen 325 mg tablet RxNorm: 426478 1 Tablet(s) PO TID as needed 05/13/2017 05/25/2017 Inactive hydrocodone 7.5 mg-acetaminophen 325 mg tablet RxNorm: 517226 1 Tablet(s) PO TID as needed 05/13/2017 05/12/2017 Inactive cyclobenzaprine 5 mg tablet RxNorm: 603992 TAKE ONE TABLET BY MOUTH THREE TIMES DAILY NEEDED FOR MUSCLE SPASM 05/01/2017 05/05/2017 Inactive hydrocodone 5 mg-acetaminophen 325 mg tablet RxNorm: 984776 1 Tablet(s) PO TID as needed 04/24/2017 05/12/2017 Inactive cyclobenzaprine 5 mg tablet RxNorm: 067822 1 Tablet(s) PO TID as needed muscle spasms 04/24/2017 04/28/2017 Inactive diazepam 10 mg tablet RxNorm: 036072 1 Tablet(s) PO TID as needed anxiety 02/22/2017 04/19/2017 Inactive norethindrone acetate 1 mg-ethinyl estradiol 20 mcg tablet RxNorm: 0523353 1 Tablet(s) PO daily 12/18/2016 07/15/2017 Inactive EEMT 1.25 mg-2.5 mg tablet RxNorm: 495634 1 Tablet(s) PO daily 12/06/2016 03/05/2017 Inactive EEMT 1.25 mg-2.5 mg tablet RxNorm: 303851 1 Tablet(s) PO daily 12/06/2016 12/05/2016 Inactive Lexapro 10 mg tablet RxNorm: 911695 1 Tablet(s) PO daily 12/06/2016 05/04/2017 Inactive diazepam 10 mg tablet RxNorm: 302796 1 Tablet(s) PO TID 11/09/2016 12/07/2016 Inactive phentermine 37.5 mg tablet RxNorm: 959566 1 Tablet(s) PO daily 10/25/2016 08/23/2017 Inactive EEMT 1.25 mg-2.5 mg tablet RxNorm: 165579 1 Tablet(s) PO daily 10/25/2016 12/05/2016 Inactive phentermine 37.5 mg tablet RxNorm: 713648 1 Tablet(s) PO daily 09/20/2016 10/24/2016 Inactive Lexapro 10 mg tablet RxNorm: 440920 1 Tablet(s) PO daily 07/10/2016 12/05/2016 Inactive Lexapro 10 mg tablet RxNorm: 308095 1 Tablet(s) PO daily 06/12/2016 07/09/2016 Inactive norethindrone acetate 1 mg-ethinyl estradiol 20 mcg tablet RxNorm: 1340198 1 Tablet(s) PO daily 06/12/2016 12/17/2016 Inactive hydrocodone 10 mg-acetaminophen 325 mg tablet RxNorm: 132713 1 Tablet(s) PO TID No Start Date 05/12/2017 Inactive phentermine 37.5 mg tablet RxNorm: 558199 1 Tablet(s) PO daily No Start Date 09/19/2016 Inactive norethindrone acetate 1 mg-ethinyl estradiol 20 mcg tablet RxNorm: 7406633 1 Tablet(s) PO daily No Start Date 06/11/2016 Inactive EEMT 1.25 mg-2.5 mg tablet RxNorm: 104058 1 Tablet(s) PO daily No Start Date 10/24/2016 Inactive Medication Administered No Medication Administered data Immunizations No Immunization data Assessments Condition Codes Effective Dates Chronic pain syndrome ICD-10: G89.4 ICD-9: 338.4 06/18/2018 Overweight ICD-10: E66.3 ICD-9: 278.02 06/18/2018 Cellulitis of right lower limb ICD-10: [...] No Procedures data Vital Signs Date Vital 06/18/2018 Blood Pressure 1: 128/80 Code: 8480-6 BMI: 31.1 Code: 47562-5 Heart Rate 1: 80 bpm Height: 5'2" SpO2: 97% Weight: 170 lbs 02/28/2018 Blood Pressure 1: 120/78 Code: 8480-6 BMI: 31.6 Code: 41067-9 Heart Rate 1: 66 bpm Height: 5'2" SpO2: 98% Weight: 173 lbs 12/09/2017 Blood Pressure 1: 116/74 Code: 8480-6 BMI: 31.5 Code: 24409-3 Heart Rate 1: 74 bpm Height: 5'2" SpO2: 95% Weight: 172 lbs 10/21/2017 Blood Pressure 1: 136/82 Code: 8480-6 BMI: 30.4 Code: 65419-9 Heart Rate 1: 79 bpm Height: 5'2" SpO2: 97% Weight: 166 lbs 09/26/2017 Blood Pressure 1: 122/80 Code: 8480-6 BMI: 30.4 Code: 16111-7 Heart Rate 1: 63 bpm Height: 5'2" SpO2: 98% Weight: 166 lbs 08/27/2017 Blood Pressure 1: 132/70 Code: 8480-6 BMI: 30.7 Code: 46352-2 Heart Rate 1: 89 bpm Height: 5'2" SpO2: 98% Weight: 168 lbs 05/27/2017 Blood Pressure 1: 132/72 Code: 8480-6 BMI: 28.9 Code: 86462-3 Heart Rate 1: 72 bpm Height: 5'2" SpO2: 98% Weight: 158 lbs 04/24/2017 Blood Pressure 1: 140/76 Code: 8480-6 BMI: 29.3 Code: 72930-2 Heart Rate 1: 77 bpm Height: 5'2" SpO2: 97% Weight: 160 lbs 03/27/2017 Blood Pressure 1: 128/74 Code: 8480-6 BMI: 29.1 Code: 71357-5 Heart Rate 1: 74 bpm Height: 5'2" SpO2: 98% Temperature: 36.8 (C) / 98.3 (F) Weight: 159 lbs 10/25/2016 Blood Pressure 1: 116/74 Code: 8480-6 BMI: 28.9 Code: 20467-6 Heart Rate 1: 68 bpm Height: 5'2" SpO2: 99% Weight: 158 lbs 09/20/2016 Blood Pressure 1: 116/70 Code: 8480-6 Heart Rate 1: 72 bpm Weight: 150 lbs 08/24/2016 Blood Pressure 1: 118/62 Code: 8480-6 BMI: 27.6 Code: 00987-3 Heart Rate 1: 63 bpm Height: 5'2" SpO2: 99% Weight: 151 lbs 06/12/2016 Blood Pressure 1: 122/74 Code: 8480-6 BMI: 26.9 Code: 80470-0 Heart Rate 1: 52 bpm Height: 5'2" [...] data Encounters Encounter Performer Location Codes Date 17930 EST. PATIENT, LEVEL III Diagnosis: Chronic pain syndrome[ICD10: G89.4] Diagnosis: Overweight[ICD10: E66.3] Veda Jama MD, [facility] CPT-4: 87984 06/18/2018 [id number] EST. PATIENT, LEVEL IV Diagnosis: Chronic pain syndrome[ICD10: G89.4] Diagnosis: Overweight[ICD10: E66.3] Veda Jama MD, [facility] CPT-4: 63563 02/28/2018 85094 EST. PATIENT, LEVEL III Diagnosis: Chronic pain syndrome[ICD10: G89.4] Diagnosis: Overweight[ICD10: E66.3] Veda Jama MD, [facility] CPT-4: 01113 12/09/2017 [id number] EST. PATIENT, LEVEL III Diagnosis: Chronic pain syndrome[ICD10: G89.4] Diagnosis: Overweight[ICD10: E66.3] Veda Jama MD, [facility] CPT-4: 85257 10/21/2017 ([id number]) Miscellaneous no charge Diagnosis: Overweight[ICD10: E66.3] Juju Jama MD, [facility] CPT-4: 57046 09/26/2017 58409 EST. PATIENT, LEVEL III Diagnosis: Chronic pain syndrome[ICD10: G89.4] Diagnosis: Overweight[ICD10: E66.3] Veda Jama MD, [facility] CPT-4: 83801 08/27/2017 [id number] EST. PATIENT, LEVEL III Diagnosis: Chronic pain syndrome[ICD10: G89.4] Diagnosis: Generalized anxiety disorder[ICD10: F41.1] Diagnosis: Major depressive disorder, single episode, moderate[ICD10: F32.1] Diagnosis: Cellulitis of right lower limb[ICD10: L03.115] Veda Jama MD, [facility] CPT-4: 02994 05/27/2017 ([id number]) 02055 EST. PATIENT, LEVEL IV Diagnosis: Generalized anxiety disorder[ICD10: F41.1] Diagnosis: Major depressive disorder, single episode, moderate[ICD10: F32.1] Diagnosis: Menopausal and female climacteric states[ICD10: N95.1] Diagnosis: Chronic pain syndrome[ICD10: G89.4] Veda Jama MD, [facility] CPT- 4: 25439 04/24/2017 ([id number]) PREV VISIT EST AGE 18-39 Diagnosis: Encounter for gynecological examination (general) (routine) without abnormal findings[ICD10: Z01.419] Veda Jama MD, [facility] CPT-4: 81712 03/27/2017 ([id number]) 40906 EST. PATIENT, LEVEL III Diagnosis: Overweight[ICD10: E66.3] [facility] CPT-4: 18309 10/25/2016 ([id number]) Miscellaneous no charge Diagnosis: Overweight[ICD10: E66.3] Radha Jama MD, [facility] CPT-4: 94390 09/20/2016 15420 EST. PATIENT, LEVEL IV Diagnosis: Other fatigue[ICD10: R53.83] Diagnosis: Overweight[ICD10: E66.3] Diagnosis: Generalized anxiety disorder[ICD10: F41.1] Veda Jama MD, [facility] CPT-4: 26375 08/24/2016 ([id number]) OFFICE VISIT, NEW - LEVEL 4 Diagnosis: Generalized anxiety disorder[ICD10: F41.1] Diagnosis: Major depressive disorder, single episode, moderate[ICD10: F32.1] Veda Jama MD, [facility] CPT-4: 31927 06/12/2016 Plan of Care Planned Activity Notes [...] weight check. 06/18/2018 Appointment: Veda Duenas WPtel: [address] [place], [place] [phone] (15 min) Moderate 06/18/2018 Patient [...] Veda Duenas WPtel: [facility] (30 min) Complex 02/28/2018 Patient Education: Patient Medication Summary Completed 02/28/2018 Patient Education: Obesity Completed 02/28/2018 Appointment: Veda Duenas WPtel: [address] [place], [place] [phone] (15 min) Moderate 02/27/2018 Visit Plan: [...] weight check. 12/09/2017 Appointment: Veda Duenas WPtel: [address] [place], [place] [phone] (15 min) Moderate 12/09/2017 Patient Education: Patient [...] weight check. 10/21/2017 Appointment: Veda Duenas WPtel: [facility]5 [facility] (15 min) Moderate 10/21/2017 Patient Education: Patient Medication Summary Completed 10/21/2017 Patient Education: Obesity Completed 10/21/2017 Appointment: Nurse Visit 09/26/2017 Patient Education: Patient Medication Summary Completed 09/26/2017 Appointment: Veda Duenas WPtel: [address] [place], [place] [phone] (30 min) Complex 08/30/2017 [...] discharge. 05/27/2017 Appointment: Veda Duenas WPtel: [facility]5 [facility] (30 min) Complex 05/27/2017 Patient Education: [...] new RX. 04/24/2017 Appointment: Veda Duenas WPtel: [address] [place], [place] [phone] (30 min) Complex 04/24/2017 Patient Education: Patient [...] Veda Duenas WPtel: [facility] [facility] 03/27/2017 Patient Education: Patient Medication [...] Veda Duenas WPtel: [facility] (15 min) Moderate 10/25/2016 Patient Education: Patient [...] weight check. 08/24/2016 Appointment: Radha Mcgowan WPtel: [phone] (30 min) Complex 08/24/2016 Appointment: Radha Mcgowan WPtel: [phone] (30 min) Complex 08/24/2016 Appointment: Radha Mcgowan WPtel: [address] [place], [place] [phone] (30 min) Complex 08/24/2016 Patient Education: Patient [...] patient. 06/12/2016 App[facility]ment[phone] [phone] [facility] Patient 06/12/2016 Patient [...]
--- OUTSIDE RECORDS SUMMARY | 2019-07-01 06:51 | XMS REPORT | CCD ---
Author Author Veda Duenas Organization Juju Jama MD, [facility] Address [address] [place] [address] Phone Care Team Providers Care Liner Man Name Role Phone PP Unavailable CCM Unavailable Summary Purpose Interface Exchange Insurance Providers Payer name Policy type / Coverage type Covered democrat ID Effective Begin Date Effective End Date [place] [facility] [id number] Unknown Family history Father Diagnosis Age At Onset Diabetes Unknown Hyperlipidemia Unknown Hypertension Unknown Heart Attack Unknown Social History Social History Element Codes Description Effective Dates Marital status Unknown CJ 06/12/2016 Number of children Unknown 3 06/12/[address]: 053435916 Never smoker 06/12/[address]: 203898817 Never drinks alcohol 06/12/2016 Allergies, Adverse Reactions, [...] hydrocodone 5 mg-acetaminophen 325 mg tablet RxNorm: 807804 1-1.5 Tablet(s) PO QID as needed 12/09/2017 01/07/2018 Active ibuprofen 800 mg tablet RxNorm: 713040 1 Tablet(s) PO TID as needed 12/09/2017 01/07/2018 Active Lyrica 100 mg capsule RxNorm: 615272 1 Capsule(s) PO BID as needed 12/09/2017 03/08/2018 Active cyclobenzaprine 5 mg tablet RxNorm: 712877 TAKE ONE TABLET BY MOUTH THREE TIMES DAILY NEEDED FOR MUSCLE SPASM 12/03/2017 No Stop Date Active hydrocodone 5 mg-acetaminophen 325 mg tablet RxNorm: 724950 1-1.5 Tablet(s) PO QID as needed 10/21/2017 11/19/2017 Inactive hydrocodone 7.5 mg-acetaminophen 325 mg tablet RxNorm: 001852 1 Tablet(s) PO QID as needed 09/26/2017 10/20/2017 Inactive phentermine 37.5 mg tablet RxNorm: 170138 1 Tablet(s) PO daily 09/26/2017 10/01/2017 Inactive Lyrica 100 mg capsule RxNorm: 388321 1 Capsule(s) PO BID as needed 09/12/2017 12/08/2017 Inactive hydrocodone 7.5 mg-acetaminophen 325 mg tablet RxNorm: 883213 1 Tablet(s) PO QID as needed 08/27/2017 09/23/2017 Inactive Belviq XR 20 mg tablet,extended release RxNorm: 4543282 1 Tablet(s) PO daily 08/27/2017 09/23/2017 Inactive cyclobenzaprine 5 mg tablet RxNorm: 317329 1 Tablet(s) PO TID as needed muscle spasms 08/19/2017 08/23/2017 Inactive hydrocodone 7.5 mg-acetaminophen 325 mg tablet RxNorm: 435252 1 Tablet(s) PO QID as needed 08/02/2017 08/26/2017 Inactive hydrocodone 7.5 mg-acetaminophen 325 mg tablet RxNorm: 952963 1 Tablet(s) PO TID as needed 08/02/2017 08/01/2017 Inactive diazepam 10 mg tablet RxNorm: 477277 1 Tablet(s) PO TID as needed anxiety 07/24/2017 09/21/2017 Inactive hydrocodone 7.5 mg-acetaminophen 325 mg tablet RxNorm: 817266 1 Tablet(s) PO TID as needed 07/11/2017 08/01/2017 Inactive Lyrica 100 mg capsule RxNorm: 066999 1 Capsule(s) PO BID as needed 06/24/2017 09/20/2017 Inactive hydrocodone 5 mg-acetaminophen 325 mg tablet RxNorm: 214287 1 Tablet(s) PO TID 06/24/2017 07/30/2017 Inactive prednisone 10 mg tablet RxNorm: 953021 1 Tablet(s) PO daily 06/18/2017 06/17/2017 Inactive 6-5-4-3-2-1 then stop prednisone 10 mg tablet RxNorm: 092379 1 Tablet(s) PO daily 06/18/2017 08/25/2017 Inactive 6-5-4-3-2-1 then stop Bactrim DS 800 mg-160 mg tablet RxNorm: 958754 1 Tablet(s) PO BID 06/11/2017 06/14/2017 Inactive Bactrim DS 800 mg-160 mg tablet RxNorm: 020377 1 Tablet(s) PO BID 06/03/2017 06/10/2017 Inactive mupirocin 2 % topical ointment RxNorm: 733610 1 Application TOP BID 06/03/2017 08/25/2017 Inactive Lyrica 100 mg capsule RxNorm: 591144 1 Capsule(s) PO BID as needed 05/27/2017 06/23/2017 Inactive Keflex 500 mg capsule RxNorm: 170673 1 Capsule(s) PO TID 05/27/2017 06/02/2017 Inactive Lexapro 10 mg tablet RxNorm: 205547 1 Tablet(s) PO daily 05/27/2017 08/25/2017 Inactive hydrocodone 5 mg-acetaminophen 325 mg tablet RxNorm: 794133 1 Tablet(s) PO TID 05/27/2017 06/23/2017 Inactive hydrocodone 7.5 mg-acetaminophen 325 mg tablet RxNorm: 137219 1 Tablet(s) PO TID as needed 05/13/2017 05/25/2017 Inactive hydrocodone 7.5 mg-acetaminophen 325 mg tablet RxNorm: 478503 1 Tablet(s) PO TID as needed 05/13/2017 05/12/2017 Inactive cyclobenzaprine 5 mg tablet RxNorm: 007875 TAKE ONE TABLET BY MOUTH THREE TIMES DAILY NEEDED FOR MUSCLE SPASM 05/01/2017 05/05/2017 Inactive hydrocodone 5 mg-acetaminophen 325 mg tablet RxNorm: 047153 1 Tablet(s) PO TID as needed 04/24/2017 05/12/2017 Inactive cyclobenzaprine 5 mg tablet RxNorm: 266310 1 Tablet(s) PO TID as needed muscle spasms 04/24/2017 04/28/2017 Inactive diazepam 10 mg tablet RxNorm: 326059 1 Tablet(s) PO TID as needed anxiety 02/22/2017 04/19/2017 Inactive norethindrone acetate 1 mg-ethinyl estradiol 20 mcg tablet RxNorm: 4761838 1 Tablet(s) PO daily 12/18/2016 07/15/2017 Inactive EEMT 1.25 mg-2.5 mg tablet RxNorm: 006319 1 Tablet(s) PO daily 12/06/2016 03/05/2017 Inactive EEMT 1.25 mg-2.5 mg tablet RxNorm: 186936 1 Tablet(s) PO daily 12/06/2016 12/05/2016 Inactive Lexapro 10 mg tablet RxNorm: 078276 1 Tablet(s) PO daily 12/06/2016 05/04/2017 Inactive diazepam 10 mg tablet RxNorm: 793074 1 Tablet(s) PO TID 11/09/2016 12/07/2016 Inactive phentermine 37.5 mg tablet RxNorm: 962776 1 Tablet(s) PO daily 10/25/2016 08/23/2017 Inactive EEMT 1.25 mg-2.5 mg tablet RxNorm: 099129 1 Tablet(s) PO daily 10/25/2016 12/05/2016 Inactive phentermine 37.5 mg tablet RxNorm: 452286 1 Tablet(s) PO daily 09/20/2016 10/24/2016 Inactive Lexapro 10 mg tablet RxNorm: 909404 1 Tablet(s) PO daily 07/10/2016 12/05/2016 Inactive Lexapro 10 mg tablet RxNorm: 997426 1 Tablet(s) PO daily 06/12/2016 07/09/2016 Inactive norethindrone acetate 1 mg-ethinyl estradiol 20 mcg tablet RxNorm: 7522425 1 Tablet(s) PO daily 06/12/2016 12/17/2016 Inactive hydrocodone 10 mg-acetaminophen 325 mg tablet RxNorm: 781008 1 Tablet(s) PO TID No Start Date 05/12/2017 Inactive phentermine 37.5 mg tablet RxNorm: 234617 1 Tablet(s) PO daily No Start Date 09/19/2016 Inactive norethindrone acetate 1 mg-ethinyl estradiol 20 mcg tablet RxNorm: 8096668 1 Tablet(s) PO daily No Start Date 06/11/2016 Inactive EEMT 1.25 mg-2.5 mg tablet RxNorm: 319900 1 Tablet(s) PO daily No Start Date 10/24/2016 Inactive Medication Administered No Medication Administered data Immunizations No Immunization data Assessments Condition Codes Effective Dates Chronic pain syndrome ICD-10: G89.4 ICD-9: 338.4 12/09/2017 Overweight ICD-10: E66.3 ICD-9: 278.02 12/09/2017 Cellulitis of right lower limb ICD-10: L03.115 [...] Visit Effective Dates Notes medication follow up 12/09/2017 hydrocodone medication follow up 10/21/2017 medication follow up 08/27/2017 medication follow up 05/27/2017 medication follow up 04/24/2017 well woman exam (18-39 years) 03/27/2017 medication follow up 10/25/2016 weight gain/obesity 08/24/2016 depression 06/12/2016 Results No Results data Review of Systems System Result Effective Dates Constitutional No recent illness 12/09/2017 Constitutional No [...] No Procedures data Vital Signs Date Vital 12/09/2017 Blood Pressure 1: 116/74 Code: 8480-6 BMI: 31.5 Code: 53391-5 Heart Rate 1: 74 bpm Height: 5'2" SpO2: 95% Weight: 172 lbs 10/21/2017 Blood Pressure 1: 136/82 Code: 8480-6 BMI: 30.4 Code: 24400-2 Heart Rate 1: 79 bpm Height: 5'2" SpO2: 97% Weight: 166 lbs 09/26/2017 Blood Pressure 1: 122/80 Code: 8480-6 BMI: 30.4 Code: 02297-1 Heart Rate 1: 63 bpm Height: 5'2" SpO2: 98% Weight: 166 lbs 08/27/2017 Blood Pressure 1: 132/70 Code: 8480-6 BMI: 30.7 Code: 68869-2 Heart Rate 1: 89 bpm Height: 5'2" SpO2: 98% Weight: 168 lbs 05/27/2017 Blood Pressure 1: 132/72 Code: 8480-6 BMI: 28.9 Code: 42702-9 Heart Rate 1: 72 bpm Height: 5'2" SpO2: 98% Weight: 158 lbs 04/24/2017 Blood Pressure 1: 140/76 Code: 8480-6 BMI: 29.3 Code: 35157-1 Heart Rate 1: 77 bpm Height: 5'2" SpO2: 97% Weight: 160 lbs 03/27/2017 Blood Pressure 1: 128/74 Code: 8480-6 BMI: 29.1 Code: 71027-7 Heart Rate 1: 74 bpm Height: 5'2" SpO2: 98% Temperature: 36.8 (C) / 98.3 (F) Weight: 159 lbs 10/25/2016 Blood Pressure 1: 116/74 Code: 8480-6 BMI: 28.9 Code: 76345-3 Heart Rate 1: 68 bpm Height: 5'2" SpO2: 99% Weight: 158 lbs 09/20/2016 Blood Pressure 1: 116/70 Code: 8480-6 Heart Rate 1: 72 bpm Weight: 150 lbs 08/24/2016 Blood Pressure 1: 118/62 Code: 8480-6 BMI: 27.6 Code: 56591-0 Heart Rate 1: 63 bpm Height: 5'2" SpO2: 99% Weight: 151 lbs 06/12/2016 Blood Pressure 1: 122/74 Code: 8480-6 BMI: 26.9 Code: 63470-0 Heart Rate 1: 52 bpm Height: 5'2" SpO2: 97% Weight: 147 lbs Functional Status No Functional Status data History of Present Illness Symptom Name Status Result Effective Date Notes medication follow up Location oral intake 12/09/2017 [...] data Encounters Encounter Performer Location Codes Date 01750 EST. PATIENT, LEVEL III Diagnosis: Chronic pain syndrome[ICD10: G89.4] Diagnosis: Overweight[ICD10: E66.3] Veda Jmaa MD, [facility] CPT-4: 67866 12/09/2017 85986 EST. PATIENT, LEVEL III Diagnosis: Chronic pain syndrome[ICD10: G89.4] Diagnosis: Overweight[ICD10: E66.3] Veda Jama MD, [facility] CPT-4: 18396 10/21/2017 ([id number]) Miscellaneous no charge Diagnosis: Overweight[ICD10: E66.3] Juju Jama MD, [facility] CPT-4: 74447 09/26/2017 [id number] EST. PATIENT, LEVEL III Diagnosis: Chronic pain syndrome[ICD10: G89.4] Diagnosis: Overweight[ICD10: E66.3] Veda Jama MD, [facility] CPT-4: 33122 08/27/2017 94529 EST. PATIENT, LEVEL III Diagnosis: Chronic pain syndrome[ICD10: G89.4] Diagnosis: Generalized anxiety disorder[ICD10: F41.1] Diagnosis: Major depressive disorder, single episode, moderate[ICD10: F32.1] Diagnosis: Cellulitis of right lower limb[ICD10: L03.115] Veda Jama MD, [facility] CPT-4: 64449 05/27/2017 ([id number]) 46744 EST. PATIENT, LEVEL IV Diagnosis: Generalized anxiety disorder[ICD10: F41.1] Diagnosis: Major depressive disorder, single episode, moderate[ICD10: F32.1] Diagnosis: Menopausal and female climacteric states[ICD10: N95.1] Diagnosis: Chronic pain syndrome[ICD10: G89.4] [facility] CPT- 4: 31980 04/24/2017 ([id number]) PREV VISIT EST AGE 18-39 Diagnosis: Encounter for gynecological examination (general) (routine) without abnormal findings[ICD10: Z01.419] Veda Jama MD, [facility] CPT-4: 73067 03/27/2017 ([id number]) 93800 EST. PATIENT, LEVEL III Diagnosis: Overweight[ICD10: E66.3] [facility] CPT-4: 19778 10/25/2016 ([id number]) Miscellaneous no charge Diagnosis: Overweight[ICD10: E66.3] [facility] CPT-4: 55314 09/20/2016 [id number] EST. PATIENT, LEVEL IV Diagnosis: Other fatigue[ICD10: R53.83] Diagnosis: Overweight[ICD10: E66.3] Diagnosis: Generalized anxiety disorder[ICD10: F41.1] [facility] CPT-4: 98908 08/24/2016 ([id number]) OFFICE VISIT, NEW - LEVEL 4 Diagnosis: Generalized anxiety disorder[ICD10: F41.1] Diagnosis: Major depressive disorder, single episode, moderate[ICD10: F32.1] [facility] CPT-4: 70353 06/12/2016 Plan of Care Planned Activity Notes Codes Status Date Appointment: Veda Duenas WPtel: [phone] [phone] (15 min) Moderate 12/09/2017 Patient Education: Patient Medication Summary Completed 12/09/2017 Patient Education: Obesity Completed 12/09/2017 Care Plan: BMI Above normal followup SELF-MGMT EDUC & TRAIN 1 PT Pending 12/09/2017 [phone] [place] (15 min) Moderate 10/21/2017 Patient Education: Patient Medication Summary Completed 10/21/2017 Patient Education: Obesity Completed 10/21/2017 Appointment: Nurse Visit 09/26/2017 Patient Education: Patient Medication Summary Completed 09/26/2017 [facility]: [phone] [place] (30 min) Complex 08/30/2017 Patient Education: Patient Medication Summary Completed 08/27/2017 Patient Education: Obesity Completed 08/27/2017 Care Plan: BMI Above normal followup SELF-MGMT EDUC & TRAIN 1 PT Pending 08/27/2017 Appointment: Nurse Visit 06/10/2017 Appointment: Nurse Visit 06/06/2017 Patient Education: Patient Medication Summary Completed 06/03/2017 App[facility]ment: [facility] (30 min) Complex 05/27/2017 Patient Education: Patient Medication Summary Completed 05/27/2017 Appointment: Veda Duenas [facility]el[facility] (30 min) Complex 04/24/2017 Patient Education: Patient Medication Summary Completed 04/24/2017 Appointment: Veda Duenas WPtel: [facility] Well Woman 03/27/2017 Patient Education: Patient Medication Summary Completed 03/27/2017 Care Plan: BMI Above normal followup SELF-MGMT EDUC & TRAIN 1 PT Pending 11/07/2016 Appointment: Veda Duenas WPtel: [facility] (15 min) Moderate 10/25/2016 Patient Education: Patient Medication Summary Completed 10/25/2016 Patient Education: Obesity Completed 10/25/2016 Appointment: Nurse Visit 09/20/2016 Patient Education: Patient Medication Summary Completed 09/20/2016 Patient Education: Obesity Completed 09/20/2016 Appointment: Nurse Visit 09/17/2016 Appointment: Radha Mcgowan WPtel: [phone] (30 min) Complex 08/24/2016 Appointment: Radha Mcgowan WPtel: [phone] (30 min) Complex 08/24/2016 Appointment: Radha Mcgowan WPtel: [phone] (30 min) Complex 08/24/2016 Patient Education: Patient Medication Summary Completed 08/24/2016 Patient Education: Obesity Completed 08/24/2016 Appointment: Radha Mcgowan WPtel: [phone] [place] New Patient 06/12/2016 Patient Education: Patient Medication Summary Completed 06/12/2016 Patient Education: Obesity Completed 06/12/2016 Instructions No Instructions
--- OUTSIDE RECORDS SUMMARY | 2019-07-01 06:52 | XMS REPORT | CCD ---
Author Author Veda Duenas Organization Juju Jama MD, [facility] Address [address] [place] [address] Phone Care Team Providers Care Traveling Sales Representative Name Role Phone PP Unavailable CCM Unavailable Summary Purpose Interface Exchange Insurance Providers Payer name Policy type / Coverage type Covered democrat ID Effective Begin Date Effective End Date [employer] [facility] [id number] Unknown Family history Father Diagnosis Age At Onset Diabetes Unknown Hyperlipidemia Unknown Hypertension Unknown Heart Attack Unknown Social History Social History Element Codes Description Effective Dates Marital status Unknown CJ 06/12/2016 Number of children Unknown 3 06/12/[address]: 055587844 Never smoker 06/12/[address]: 115564365 Never drinks alcohol 06/12/2016 Allergies, Adverse Reactions, [...] Fill Instructions diazepam 10 mg tablet RxNorm: 138011 1 Tablet(s) PO TID as needed anxiety 01/01/2018 03/01/2018 Active hydrocodone 5 mg-acetaminophen 325 mg tablet RxNorm: 021302 1-1.5 Tablet(s) PO QID as needed 12/09/2017 01/07/2018 Active ibuprofen 800 mg tablet RxNorm: 977310 1 Tablet(s) PO TID as needed 12/09/2017 01/07/2018 Active Lyrica 100 mg capsule RxNorm: 021664 1 Capsule(s) PO BID as needed 12/09/2017 03/08/2018 Active cyclobenzaprine 5 mg tablet RxNorm: 140466 TAKE ONE TABLET BY MOUTH THREE TIMES DAILY NEEDED FOR MUSCLE SPASM 12/03/2017 No Stop Date Active hydrocodone 5 mg-acetaminophen 325 mg tablet RxNorm: 708506 1-1.5 Tablet(s) PO QID as needed 10/21/2017 11/19/2017 Inactive hydrocodone 7.5 mg-acetaminophen 325 mg tablet RxNorm: 970529 1 Tablet(s) PO QID as needed 09/26/2017 10/20/2017 Inactive phentermine 37.5 mg tablet RxNorm: 817604 1 Tablet(s) PO daily 09/26/2017 10/01/2017 Inactive Lyrica 100 mg capsule RxNorm: 102416 1 Capsule(s) PO BID as needed 09/12/2017 12/08/2017 Inactive hydrocodone 7.5 mg-acetaminophen 325 mg tablet RxNorm: 352205 1 Tablet(s) PO QID as needed 08/27/2017 09/23/2017 Inactive Belviq XR 20 mg tablet,extended release RxNorm: 6054231 1 Tablet(s) PO daily 08/27/2017 09/23/2017 Inactive cyclobenzaprine 5 mg tablet RxNorm: 524086 1 Tablet(s) PO TID as needed muscle spasms 08/19/2017 08/23/2017 Inactive hydrocodone 7.5 mg-acetaminophen 325 mg tablet RxNorm: 140121 1 Tablet(s) PO QID as needed 08/02/2017 08/26/2017 Inactive hydrocodone 7.5 mg-acetaminophen 325 mg tablet RxNorm: 995146 1 Tablet(s) PO TID as needed 08/02/2017 08/01/2017 Inactive diazepam 10 mg tablet RxNorm: 518861 1 Tablet(s) PO TID as needed anxiety 07/24/2017 09/21/2017 Inactive hydrocodone 7.5 mg-acetaminophen 325 mg tablet RxNorm: 589228 1 Tablet(s) PO TID as needed 07/11/2017 08/01/2017 Inactive Lyrica 100 mg capsule RxNorm: 962496 1 Capsule(s) PO BID as needed 06/24/2017 09/20/2017 Inactive hydrocodone 5 mg-acetaminophen 325 mg tablet RxNorm: 310247 1 Tablet(s) PO TID 06/24/2017 07/30/2017 Inactive prednisone 10 mg tablet RxNorm: 564218 1 Tablet(s) PO daily 06/18/2017 06/17/2017 Inactive 6-5-4-3-2-1 then stop prednisone 10 mg tablet RxNorm: 272881 1 Tablet(s) PO daily 06/18/2017 08/25/2017 Inactive 6-5-4-3-2-1 then stop Bactrim DS 800 mg-160 mg tablet RxNorm: 898836 1 Tablet(s) PO BID 06/11/2017 06/14/2017 Inactive Bactrim DS 800 mg-160 mg tablet RxNorm: 249723 1 Tablet(s) PO BID 06/03/2017 06/10/2017 Inactive mupirocin 2 % topical ointment RxNorm: 633540 1 Application TOP BID 06/03/2017 08/25/2017 Inactive Lyrica 100 mg capsule RxNorm: 476262 1 Capsule(s) PO BID as needed 05/27/2017 06/23/2017 Inactive Keflex 500 mg capsule RxNorm: 048211 1 Capsule(s) PO TID 05/27/2017 06/02/2017 Inactive Lexapro 10 mg tablet RxNorm: 955593 1 Tablet(s) PO daily 05/27/2017 08/25/2017 Inactive hydrocodone 5 mg-acetaminophen 325 mg tablet RxNorm: 185252 1 Tablet(s) PO TID 05/27/2017 06/23/2017 Inactive hydrocodone 7.5 mg-acetaminophen 325 mg tablet RxNorm: 232971 1 Tablet(s) PO TID as needed 05/13/2017 05/25/2017 Inactive hydrocodone 7.5 mg-acetaminophen 325 mg tablet RxNorm: 664494 1 Tablet(s) PO TID as needed 05/13/2017 05/12/2017 Inactive cyclobenzaprine 5 mg tablet RxNorm: 610315 TAKE ONE TABLET BY MOUTH THREE TIMES DAILY NEEDED FOR MUSCLE SPASM 05/01/2017 05/05/2017 Inactive hydrocodone 5 mg-acetaminophen 325 mg tablet RxNorm: 630044 1 Tablet(s) PO TID as needed 04/24/2017 05/12/2017 Inactive cyclobenzaprine 5 mg tablet RxNorm: 506436 1 Tablet(s) PO TID as needed muscle spasms 04/24/2017 04/28/2017 Inactive diazepam 10 mg tablet RxNorm: 464077 1 Tablet(s) PO TID as needed anxiety 02/22/2017 04/19/2017 Inactive norethindrone acetate 1 mg-ethinyl estradiol 20 mcg tablet RxNorm: 8842668 1 Tablet(s) PO daily 12/18/2016 07/15/2017 Inactive EEMT 1.25 mg-2.5 mg tablet RxNorm: 078139 1 Tablet(s) PO daily 12/06/2016 03/05/2017 Inactive EEMT 1.25 mg-2.5 mg tablet RxNorm: 638858 1 Tablet(s) PO daily 12/06/2016 12/05/2016 Inactive Lexapro 10 mg tablet RxNorm: 410148 1 Tablet(s) PO daily 12/06/2016 05/04/2017 Inactive diazepam 10 mg tablet RxNorm: 395191 1 Tablet(s) PO TID 11/09/2016 12/07/2016 Inactive phentermine 37.5 mg tablet RxNorm: 543042 1 Tablet(s) PO daily 10/25/2016 08/23/2017 Inactive EEMT 1.25 mg-2.5 mg tablet RxNorm: 840856 1 Tablet(s) PO daily 10/25/2016 12/05/2016 Inactive phentermine 37.5 mg tablet RxNorm: 906884 1 Tablet(s) PO daily 09/20/2016 10/24/2016 Inactive Lexapro 10 mg tablet RxNorm: 843295 1 Tablet(s) PO daily 07/10/2016 12/05/2016 Inactive Lexapro 10 mg tablet RxNorm: 435267 1 Tablet(s) PO daily 06/12/2016 07/09/2016 Inactive norethindrone acetate 1 mg-ethinyl estradiol 20 mcg tablet RxNorm: 5944039 1 Tablet(s) PO daily 06/12/2016 12/17/2016 Inactive hydrocodone 10 mg-acetaminophen 325 mg tablet RxNorm: 190174 1 Tablet(s) PO TID No Start Date 05/12/2017 Inactive phentermine 37.5 mg tablet RxNorm: 283210 1 Tablet(s) PO daily No Start Date 09/19/2016 Inactive norethindrone acetate 1 mg-ethinyl estradiol 20 mcg tablet RxNorm: 6179989 1 Tablet(s) PO daily No Start Date 06/11/2016 Inactive EEMT 1.25 mg-2.5 mg tablet RxNorm: 599880 1 Tablet(s) PO daily No Start Date 10/24/2016 Inactive Medication Administered No Medication Administered data Immunizations No Immunization data Assessments Condition Codes Effective Dates Overweight ICD-10: E66.3 ICD-9: 278.02 12/09/2017 Chronic pain syndrome ICD-10: G89.4 ICD-9: 338.4 12/09/2017 Cellulitis of right lower limb ICD-10: [...] 1: 116/74 Code: 8480-6 BMI: 31.5 Code: 23614-4 Heart Rate 1: 74 bpm Height: 5'2" SpO2: 95% Weight: 172 lbs 10/21/2017 Blood Pressure 1: 136/82 Code: 8480-6 BMI: 30.4 Code: 81753-6 Heart Rate 1: 79 bpm Height: 5'2" SpO2: 97% Weight: 166 lbs 09/26/2017 Blood Pressure 1: 122/80 Code: 8480-6 BMI: 30.4 Code: 75826-0 Heart Rate 1: 63 bpm Height: 5'2" SpO2: 98% Weight: 166 lbs 08/27/2017 Blood Pressure 1: 132/70 Code: 8480-6 BMI: 30.7 Code: 54082-3 Heart Rate 1: 89 bpm Height: 5'2" SpO2: 98% Weight: 168 lbs 05/27/2017 Blood Pressure 1: 132/72 Code: 8480-6 BMI: 28.9 Code: 63735-5 Heart Rate 1: 72 bpm Height: 5'2" SpO2: 98% Weight: 158 lbs 04/24/2017 Blood Pressure 1: 140/76 Code: 8480-6 BMI: 29.3 Code: 13155-0 Heart Rate 1: 77 bpm Height: 5'2" SpO2: 97% Weight: 160 lbs 03/27/2017 Blood Pressure 1: 128/74 Code: 8480-6 BMI: 29.1 Code: 67567-1 Heart Rate 1: 74 bpm Height: 5'2" SpO2: 98% Temperature: 36.8 (C) / 98.3 (F) Weight: 159 lbs 10/25/2016 Blood Pressure 1: 116/74 Code: 8480-6 BMI: 28.9 Code: 17241-2 Heart Rate 1: 68 bpm Height: 5'2" SpO2: 99% Weight: 158 lbs 09/20/2016 Blood Pressure 1: 116/70 Code: 8480-6 Heart Rate 1: 72 bpm Weight: 150 lbs 08/24/2016 Blood Pressure 1: 118/62 Code: 8480-6 BMI: 27.6 Code: 32818-7 Heart Rate 1: 63 bpm Height: 5'2" SpO2: 99% Weight: 151 lbs 06/12/2016 Blood Pressure 1: 122/74 Code: 8480-6 BMI: 26.9 Code: 01063-3 Heart Rate 1: 52 bpm Height: 5'2" [...] E66.3] Veda Jama MD, [facility] CPT-4: 17245 12/09/2017 [id number] EST. PATIENT, LEVEL III Diagnosis: Chronic pain syndrome[ICD10: G89.4] Diagnosis: Overweight[ICD10: E66.3] Veda Jama MD, [facility] CPT-4: 13445 10/21/2017 ([id number]) Miscellaneous no charge Diagnosis: Overweight[ICD10: E66.3] Juju Jama MD, [facility] CPT-4: 33104 09/26/2017 [id number] EST. PATIENT, LEVEL III Diagnosis: Chronic pain syndrome[ICD10: G89.4] Diagnosis: Overweight[ICD10: E66.3] Veda Jama MD, [facility] CPT-4: 05617 08/27/2017 [id number] EST. PATIENT, LEVEL III Diagnosis: Chronic pain syndrome[ICD10: G89.4] Diagnosis: Generalized anxiety disorder[ICD10: F41.1] Diagnosis: Major depressive disorder, single episode, moderate[ICD10: F32.1] Diagnosis: Cellulitis of right lower limb[ICD10: L03.115] Veda Jama MD, [facility] CPT-4: 24622 05/27/2017 ([id number]) 63755 EST. PATIENT, LEVEL IV Diagnosis: Generalized anxiety disorder[ICD10: F41.1] Diagnosis: Major depressive disorder, single episode, moderate[ICD10: F32.1] Diagnosis: Menopausal and female climacteric states[ICD10: N95.1] Diagnosis: Chronic pain syndrome[ICD10: G89.4] Veda Jama MD, [facility] CPT- 4: 39139 04/24/2017 ([id number]) PREV VISIT EST AGE 18-39 Diagnosis: Encounter for gynecological examination (general) (routine) without abnormal findings[ICD10: Z01.419] Veda Jama MD, [facility] CPT-4: 57201 03/27/2017 ([id number]) 44360 EST. PATIENT, LEVEL III Diagnosis: Overweight[ICD10: E66.3] Veda Jama MD, [facility] CPT-4: 78994 10/25/2016 ([id number]) Miscellaneous no charge Diagnosis: Overweight[ICD10: E66.3] [facility] CPT-4: 07383 09/20/2016 [id number] EST. PATIENT, LEVEL IV Diagnosis: Other fatigue[ICD10: R53.83] Diagnosis: Overweight[ICD10: E66.3] Diagnosis: Generalized anxiety disorder[ICD10: F41.1] [facility] CPT-4: 35606 08/24/2016 ([id number]) OFFICE VISIT, NEW - LEVEL 4 Diagnosis: Generalized anxiety disorder[ICD10: F41.1] Diagnosis: Major depressive disorder, single episode, moderate[ICD10: F32.1] [facility] CPT-4: 21792 06/12/2016 Plan of Care Planned Activity Notes Codes Status Date Appointment: [facility] ([facility]) Moderate 12/09/2017 Patient Education: Patient Medication Summary Completed 12/09/2017 Patient Education: Obesity Completed 12/09/2017 Care Plan: BMI Above normal followup SELF-MGMT EDUC & TRAIN 1 PT Pending 12/09/2017 Appointment: Veda Duenas [facility] [place] (15 min) Moderate 10/21/2017 Patient Education: Patient Medication Summary Completed 10/21/2017 Patient Education: Obesity Completed 10/21/2017 Appointment: Nurse Visit 09/26/2017 Patient Education: Patient Medication Summary Completed 09/26/2017 [facility]: [facility] [phone] [facility] [place] (30 min) Complex 08/30/2017 Patient Education: Patient Medication Summary Completed 08/27/2017 Patient Education: Obesity Completed 08/27/2017 Care Plan: BMI Above normal followup SELF-MGMT EDUC & TRAIN 1 PT Pending 08/27/2017 Appointment: Nurse Visit 06/10/2017 Appointment: Nurse Visit 06/06/2017 Patient Education: Patient Medication Summary Completed 06/03/2017 Appointment: Veda Duenas [facility]el[facility] ([facility] min) Complex 05/27/2017 Patient Education: Patient Medication Summary Completed 05/27/2017 Appointment: Veda Duenas WPtel: [facility] (30 min) Complex 04/24/2017 Patient Education: Patient Medication Summary Completed 04/24/2017 Appointment: Veda Duenas WPtel: [facility] [facility] 03/27/2017 Patient Education: Patient Medication Summary Completed 03/27/2017 Care Plan: BMI Above normal followup SELF-MGMT EDUC & TRAIN 1 PT Pending 11/07/2016 Appointment: Veda Duenas WPtel: [address] [place], [place] [address] (15 min) Moderate 10/25/2016 Patient Education: Patient Medication Summary Completed 10/25/2016 Patient Education: Obesity Completed 10/25/2016 Appointment: Nurse Visit 09/20/2016 Patient Education: Patient Medication Summary Completed 09/20/2016 Patient Education: Obesity Completed 09/20/2016 Appointment: Nurse Visit 09/17/2016 Appointment: Radha Mcgowan [facility]Ptel[phone] (30 min) Complex 08/24/2016 Appointment: Radha Mcgowan [facility]Ptel[phone] (30 min) Complex 08/24/2016 Appointment: Radha Mcgowan WPtel: [phone] (30 min) Complex 08/24/2016 Patient Education: Patient Medication Summary Completed 08/24/2016 Patient Education: Obesity Completed 08/24/2016 Appointment: Radha Mcgowan WPtel: [address] [place], [place] [phone] New Patient 06/12/2016 Patient Education: Patient Medication Summary Completed 06/12/2016 Patient Education: Obesity Completed 06/12/2016 Instructions No Instructions
--- OUTSIDE RECORDS SUMMARY | 2019-07-01 06:53 | XMS REPORT | CCD ---
Author Author Veda Duenas Organization Juju Jama MD, [facility] Address [address] [place] [address] Phone Care Team Providers Care Medical File Clerk Name Role Phone PP Unavailable CCM Unavailable Summary Purpose Interface Exchange Insurance Providers Payer name Policy type / Coverage type Covered green party ID Effective Begin Date Effective End Date [place] [employer] [facility] Blue Cross/Counts include [facility] beds at the [id number] Unknown Family history Father Diagnosis Age At Onset Diabetes Unknown Hyperlipidemia Unknown Hypertension Unknown Heart Attack Unknown Social History Social History Element Codes Description Effective Dates Marital status Unknown CJ 06/12/2016 Number of children Unknown 3 06/12/[address]: 599028005 Never smoker 06/12/[address]: 649215279 Never drinks alcohol 06/12/2016 Allergies, Adverse Reactions, [...] hydrocodone 5 mg-acetaminophen 325 mg tablet RxNorm: 347305 1-1.5 Tablet(s) PO QID as needed 12/09/2017 01/07/2018 Active ibuprofen 800 mg tablet RxNorm: 238214 1 Tablet(s) PO TID as needed 12/09/2017 01/07/2018 Active Lyrica 100 mg capsule RxNorm: 688110 1 Capsule(s) PO BID as needed 12/09/2017 03/08/2018 Active cyclobenzaprine 5 mg tablet RxNorm: 303121 TAKE ONE TABLET BY MOUTH THREE TIMES DAILY NEEDED FOR MUSCLE SPASM 12/03/2017 No Stop Date Active hydrocodone 5 mg-acetaminophen 325 mg tablet RxNorm: 022167 1-1.5 Tablet(s) PO QID as needed 10/21/2017 11/19/2017 Inactive hydrocodone 7.5 mg-acetaminophen 325 mg tablet RxNorm: 197427 1 Tablet(s) PO QID as needed 09/26/2017 10/20/2017 Inactive phentermine 37.5 mg tablet RxNorm: 623584 1 Tablet(s) PO daily 09/26/2017 10/01/2017 Inactive Lyrica 100 mg capsule RxNorm: 277750 1 Capsule(s) PO BID as needed 09/12/2017 12/08/2017 Inactive hydrocodone 7.5 mg-acetaminophen 325 mg tablet RxNorm: 462068 1 Tablet(s) PO QID as needed 08/27/2017 09/23/2017 Inactive Belviq XR 20 mg tablet,extended release RxNorm: 7823868 1 Tablet(s) PO daily 08/27/2017 09/23/2017 Inactive cyclobenzaprine 5 mg tablet RxNorm: 123632 1 Tablet(s) PO TID as needed muscle spasms 08/19/2017 08/23/2017 Inactive hydrocodone 7.5 mg-acetaminophen 325 mg tablet RxNorm: 920056 1 Tablet(s) PO QID as needed 08/02/2017 08/26/2017 Inactive hydrocodone 7.5 mg-acetaminophen 325 mg tablet RxNorm: 145949 1 Tablet(s) PO TID as needed 08/02/2017 08/01/2017 Inactive diazepam 10 mg tablet RxNorm: 661292 1 Tablet(s) PO TID as needed anxiety 07/24/2017 09/21/2017 Inactive hydrocodone 7.5 mg-acetaminophen 325 mg tablet RxNorm: 535964 1 Tablet(s) PO TID as needed 07/11/2017 08/01/2017 Inactive Lyrica 100 mg capsule RxNorm: 404477 1 Capsule(s) PO BID as needed 06/24/2017 09/20/2017 Inactive hydrocodone 5 mg-acetaminophen 325 mg tablet RxNorm: 857081 1 Tablet(s) PO TID 06/24/2017 07/30/2017 Inactive prednisone 10 mg tablet RxNorm: 119761 1 Tablet(s) PO daily 06/18/2017 06/17/2017 Inactive 6-5-4-3-2-1 then stop prednisone 10 mg tablet RxNorm: 583218 1 Tablet(s) PO daily 06/18/2017 08/25/2017 Inactive 6-5-4-3-2-1 then stop Bactrim DS 800 mg-160 mg tablet RxNorm: 169014 1 Tablet(s) PO BID 06/11/2017 06/14/2017 Inactive Bactrim DS 800 mg-160 mg tablet RxNorm: 380485 1 Tablet(s) PO BID 06/03/2017 06/10/2017 Inactive mupirocin 2 % topical ointment RxNorm: 463684 1 Application TOP BID 06/03/2017 08/25/2017 Inactive Lyrica 100 mg capsule RxNorm: 376962 1 Capsule(s) PO BID as needed 05/27/2017 06/23/2017 Inactive Keflex 500 mg capsule RxNorm: 338862 1 Capsule(s) PO TID 05/27/2017 06/02/2017 Inactive Lexapro 10 mg tablet RxNorm: 582844 1 Tablet(s) PO daily 05/27/2017 08/25/2017 Inactive hydrocodone 5 mg-acetaminophen 325 mg tablet RxNorm: 080968 1 Tablet(s) PO TID 05/27/2017 06/23/2017 Inactive hydrocodone 7.5 mg-acetaminophen 325 mg tablet RxNorm: 862783 1 Tablet(s) PO TID as needed 05/13/2017 05/25/2017 Inactive hydrocodone 7.5 mg-acetaminophen 325 mg tablet RxNorm: 462355 1 Tablet(s) PO TID as needed 05/13/2017 05/12/2017 Inactive cyclobenzaprine 5 mg tablet RxNorm: 105136 TAKE ONE TABLET BY MOUTH THREE TIMES DAILY NEEDED FOR MUSCLE SPASM 05/01/2017 05/05/2017 Inactive hydrocodone 5 mg-acetaminophen 325 mg tablet RxNorm: 737736 1 Tablet(s) PO TID as needed 04/24/2017 05/12/2017 Inactive cyclobenzaprine 5 mg tablet RxNorm: 583161 1 Tablet(s) PO TID as needed muscle spasms 04/24/2017 04/28/2017 Inactive diazepam 10 mg tablet RxNorm: 239609 1 Tablet(s) PO TID as needed anxiety 02/22/2017 04/19/2017 Inactive norethindrone acetate 1 mg-ethinyl estradiol 20 mcg tablet RxNorm: 2297443 1 Tablet(s) PO daily 12/18/2016 07/15/2017 Inactive EEMT 1.25 mg-2.5 mg tablet RxNorm: 783110 1 Tablet(s) PO daily 12/06/2016 03/05/2017 Inactive EEMT 1.25 mg-2.5 mg tablet RxNorm: 870497 1 Tablet(s) PO daily 12/06/2016 12/05/2016 Inactive Lexapro 10 mg tablet RxNorm: 997576 1 Tablet(s) PO daily 12/06/2016 05/04/2017 Inactive diazepam 10 mg tablet RxNorm: 172349 1 Tablet(s) PO TID 11/09/2016 12/07/2016 Inactive phentermine 37.5 mg tablet RxNorm: 633365 1 Tablet(s) PO daily 10/25/2016 08/23/2017 Inactive EEMT 1.25 mg-2.5 mg tablet RxNorm: 585266 1 Tablet(s) PO daily 10/25/2016 12/05/2016 Inactive phentermine 37.5 mg tablet RxNorm: 498270 1 Tablet(s) PO daily 09/20/2016 10/24/2016 Inactive Lexapro 10 mg tablet RxNorm: 554554 1 Tablet(s) PO daily 07/10/2016 12/05/2016 Inactive Lexapro 10 mg tablet RxNorm: 981404 1 Tablet(s) PO daily 06/12/2016 07/09/2016 Inactive norethindrone acetate 1 mg-ethinyl estradiol 20 mcg tablet RxNorm: 3721444 1 Tablet(s) PO daily 06/12/2016 12/17/2016 Inactive hydrocodone 10 mg-acetaminophen 325 mg tablet RxNorm: 845864 1 Tablet(s) PO TID No Start Date 05/12/2017 Inactive phentermine 37.5 mg tablet RxNorm: 532156 1 Tablet(s) PO daily No Start Date 09/19/2016 Inactive norethindrone acetate 1 mg-ethinyl estradiol 20 mcg tablet RxNorm: 0169885 1 Tablet(s) PO daily No Start Date 06/11/2016 Inactive EEMT 1.25 mg-2.5 mg tablet RxNorm: 601961 1 Tablet(s) PO daily No Start Date [...] 1: 116/74 Code: 8480-6 BMI: 31.5 Code: 67129-5 Heart Rate 1: 74 bpm Height: 5'2" SpO2: 95% Weight: 172 lbs 10/21/2017 Blood Pressure 1: 136/82 Code: 8480-6 BMI: 30.4 Code: 73957-6 Heart Rate 1: 79 bpm Height: 5'2" SpO2: 97% Weight: 166 lbs 09/26/2017 Blood Pressure 1: 122/80 Code: 8480-6 BMI: 30.4 Code: 36160-6 Heart Rate 1: 63 bpm Height: 5'2" SpO2: 98% Weight: 166 lbs 08/27/2017 Blood Pressure 1: 132/70 Code: 8480-6 BMI: 30.7 Code: 72536-3 Heart Rate 1: 89 bpm Height: 5'2" SpO2: 98% Weight: 168 lbs 05/27/2017 Blood Pressure 1: 132/72 Code: 8480-6 BMI: 28.9 Code: 09936-2 Heart Rate 1: 72 bpm Height: 5'2" SpO2: 98% Weight: 158 lbs 04/24/2017 Blood Pressure 1: 140/76 Code: 8480-6 BMI: 29.3 Code: 60459-4 Heart Rate 1: 77 bpm Height: 5'2" SpO2: 97% Weight: 160 lbs 03/27/2017 Blood Pressure 1: 128/74 Code: 8480-6 BMI: 29.1 Code: 61277-2 Heart Rate 1: 74 bpm Height: 5'2" SpO2: 98% Temperature: 36.8 (C) / 98.3 (F) Weight: 159 lbs 10/25/2016 Blood Pressure 1: 116/74 Code: 8480-6 BMI: 28.9 Code: 99781-3 Heart Rate 1: 68 bpm Height: 5'2" SpO2: 99% Weight: 158 lbs 09/20/2016 Blood Pressure 1: 116/70 Code: 8480-6 Heart Rate 1: 72 bpm Weight: 150 lbs 08/24/2016 Blood Pressure 1: 118/62 Code: 8480-6 BMI: 27.6 Code: 61226-5 Heart Rate 1: 63 bpm Height: 5'2" SpO2: 99% Weight: 151 lbs 06/12/2016 Blood Pressure 1: 122/74 Code: 8480-6 BMI: 26.9 Code: 93026-0 Heart Rate 1: 52 bpm Height: 5'2" [...] data Encounters Encounter Performer Location Codes Date 11471 EST. PATIENT, LEVEL III Diagnosis: Chronic pain syndrome[ICD10: G89.4] Diagnosis: Overweight[ICD10: E66.3] Veda Jama MD, [facility] CPT-4: 39791 12/09/2017 33857 EST. PATIENT, LEVEL III Diagnosis: Chronic pain syndrome[ICD10: G89.4] Diagnosis: Overweight[ICD10: E66.3] Veda Jama MD, [facility] CPT-4: 62872 10/21/2017 ([id number]) Miscellaneous no charge Diagnosis: Overweight[ICD10: E66.3] Juju Jama MD, [facility] CPT-4: 32437 09/26/2017 [id number] EST. PATIENT, LEVEL III Diagnosis: Chronic pain syndrome[ICD10: G89.4] Diagnosis: Overweight[ICD10: E66.3] Veda Jama MD, [facility] CPT-4: 16545 08/27/2017 96459 EST. PATIENT, LEVEL III Diagnosis: Chronic pain syndrome[ICD10: G89.4] Diagnosis: Generalized anxiety disorder[ICD10: F41.1] Diagnosis: Major depressive disorder, single episode, moderate[ICD10: F32.1] Diagnosis: Cellulitis of right lower limb[ICD10: L03.115] Veda Jama MD, [facility] CPT-4: 74329 05/27/2017 ([id number]) 13952 EST. PATIENT, LEVEL IV Diagnosis: Generalized anxiety disorder[ICD10: F41.1] Diagnosis: Major depressive disorder, single episode, moderate[ICD10: F32.1] Diagnosis: Menopausal and female climacteric states[ICD10: N95.1] Diagnosis: Chronic pain syndrome[ICD10: G89.4] [facility] CPT- 4: 22818 04/24/2017 ([id number]) PREV VISIT EST AGE 18-39 Diagnosis: Encounter for gynecological examination (general) (routine) without abnormal findings[ICD10: Z01.419] Veda Jama MD, [facility] CPT-4: 90382 03/27/2017 ([id number]) 84509 EST. PATIENT, LEVEL III Diagnosis: Overweight[ICD10: E66.3] [facility] CPT-4: 28487 10/25/2016 ([id number]) Miscellaneous no charge Diagnosis: Overweight[ICD10: E66.3] [facility] CPT-4: 37084 09/20/2016 37888 EST. PATIENT, LEVEL IV Diagnosis: Other fatigue[ICD10: R53.83] Diagnosis: Overweight[ICD10: E66.3] Diagnosis: Generalized anxiety disorder[ICD10: F41.1] [facility] CPT-4: 42794 08/24/2016 ([id number]) OFFICE VISIT, NEW - LEVEL 4 Diagnosis: Generalized anxiety disorder[ICD10: F41.1] Diagnosis: Major depressive disorder, single episode, moderate[ICD10: F32.1] [facility] CPT-4: 91288 06/12/2016 Plan of Care Planned Activity Notes [...] in one month for weight check. 12/09/2017 Patient Education: Patient Medication Summary Completed [...] weight check. 10/21/2017 Appointment: Veda Duenas WPtel: [address] [place], [place] [address] (15 min) Moderate 10/21/2017 Patient Education: Patient Medication Summary Completed 10/21/2017 Patient Education: Obesity Completed 10/21/2017 Appointment: Nurse Visit 09/26/2017 Patient Education: Patient Medication Summary Completed 09/26/2017 Appointment: Veda Duenas WPtel: [phone] [facility] (30 min) Complex 08/30/2017 Visit Plan: [...] [phone] [facility] 05/27/2017 Patient Education: Patient [...] new RX. 04/24/2017 Appointment: Veda Duenas WPtel: [facility] (30 min) Complex 04/24/2017 Patient Education: Patient [...] per pharmacy. 03/27/2017 Appointment: Veda Duenas WPtel: [facility] [facility] 03/27/2017 Patient Education: Patient Medication Summary Completed 03/27/2017 Care Plan: BMI Above normal followup SELF-MGMT EDUC & TRAIN 1 PT Pending 11/07/2016 Visit Plan: Obesity - chronic issue with this patient. The pt has been counseled about diet changes, calorie restriction, and need to exercise. Pt will RTC in one month for weight check. 10/25/2016 Appointment: Veda Duenas WPtel: [facility]5 [facility] (15 min) Moderate 10/25/2016 Patient Education: Patient [...] weight check. 08/24/2016 Appointment: Radha Mcgowan WPtel: [facility]5 [phone] (30 min) Complex 08/24/2016 Appointment: Radha Mcgowan WPtel: [phone] (30 min) Complex 08/24/2016 Appointment: Radha Mcgowan WPtel: [address] [place], [place] [phone] (30 min) Complex 08/24/2016 Patient Education: Patient [...] patient. 06/12/2016 Appointment: [facility] Mcgow[phone] [phone] [place] New Patient 06/12/2016 Patient Education: Patient [...]
--- OUTSIDE RECORDS SUMMARY | 2019-07-01 06:53 | XMS REPORT | CCD ---
Author Author Veda Duenas Organization Juju Jama MD, [facility] Address [address] [place] [address] Phone Care Team Providers Care Run Boat Operator Name Role Phone PP Unavailable CCM Unavailable Summary Purpose Interface Exchange Insurance Providers Payer name Policy type / Coverage type Covered democrat ID Effective Begin Date Effective End Date [place] [facility] Blue Cross/[id number] Unknown Family history Father Diagnosis Age At Onset Diabetes Unknown Hyperlipidemia Unknown Hypertension Unknown Heart Attack Unknown Social History Social History Element Codes Description Effective Dates Marital status Unknown CJ 06/12/2016 Number of children Unknown 3 06/12/[address]: 054926591 Never smoker 06/12/[address]: 407223640 Never drinks alcohol 06/12/2016 Allergies, Adverse Reactions, [...] hydrocodone 5 mg-acetaminophen 325 mg tablet RxNorm: 765108 1-1.5 Tablet(s) PO QID as needed 12/09/2017 01/07/2018 Active ibuprofen 800 mg tablet RxNorm: 000522 1 Tablet(s) PO TID as needed 12/09/2017 01/07/2018 Active Lyrica 100 mg capsule RxNorm: 665446 1 Capsule(s) PO BID as needed 12/09/2017 03/08/2018 Active cyclobenzaprine 5 mg tablet RxNorm: 169419 TAKE ONE TABLET BY MOUTH THREE TIMES DAILY NEEDED FOR MUSCLE SPASM 12/03/2017 No Stop Date Active hydrocodone 5 mg-acetaminophen 325 mg tablet RxNorm: 482926 1-1.5 Tablet(s) PO QID as needed 10/21/2017 11/19/2017 Inactive hydrocodone 7.5 mg-acetaminophen 325 mg tablet RxNorm: 730696 1 Tablet(s) PO QID as needed 09/26/2017 10/20/2017 Inactive phentermine 37.5 mg tablet RxNorm: 471556 1 Tablet(s) PO daily 09/26/2017 10/01/2017 Inactive Lyrica 100 mg capsule RxNorm: 145655 1 Capsule(s) PO BID as needed 09/12/2017 12/08/2017 Inactive hydrocodone 7.5 mg-acetaminophen 325 mg tablet RxNorm: 244881 1 Tablet(s) PO QID as needed 08/27/2017 09/23/2017 Inactive Belviq XR 20 mg tablet,extended release RxNorm: 9576170 1 Tablet(s) PO daily 08/27/2017 09/23/2017 Inactive cyclobenzaprine 5 mg tablet RxNorm: 115695 1 Tablet(s) PO TID as needed muscle spasms 08/19/2017 08/23/2017 Inactive hydrocodone 7.5 mg-acetaminophen 325 mg tablet RxNorm: 439517 1 Tablet(s) PO QID as needed 08/02/2017 08/26/2017 Inactive hydrocodone 7.5 mg-acetaminophen 325 mg tablet RxNorm: 208450 1 Tablet(s) PO TID as needed 08/02/2017 08/01/2017 Inactive diazepam 10 mg tablet RxNorm: 411435 1 Tablet(s) PO TID as needed anxiety 07/24/2017 09/21/2017 Inactive hydrocodone 7.5 mg-acetaminophen 325 mg tablet RxNorm: 002926 1 Tablet(s) PO TID as needed 07/11/2017 08/01/2017 Inactive Lyrica 100 mg capsule RxNorm: 832071 1 Capsule(s) PO BID as needed 06/24/2017 09/20/2017 Inactive hydrocodone 5 mg-acetaminophen 325 mg tablet RxNorm: 350199 1 Tablet(s) PO TID 06/24/2017 07/30/2017 Inactive prednisone 10 mg tablet RxNorm: 258088 1 Tablet(s) PO daily 06/18/2017 06/17/2017 Inactive 6-5-4-3-2-1 then stop prednisone 10 mg tablet RxNorm: 393105 1 Tablet(s) PO daily 06/18/2017 08/25/2017 Inactive 6-5-4-3-2-1 then stop Bactrim DS 800 mg-160 mg tablet RxNorm: 510741 1 Tablet(s) PO BID 06/11/2017 06/14/2017 Inactive Bactrim DS 800 mg-160 mg tablet RxNorm: 099397 1 Tablet(s) PO BID 06/03/2017 06/10/2017 Inactive mupirocin 2 % topical ointment RxNorm: 110160 1 Application TOP BID 06/03/2017 08/25/2017 Inactive Lyrica 100 mg capsule RxNorm: 656598 1 Capsule(s) PO BID as needed 05/27/2017 06/23/2017 Inactive Keflex 500 mg capsule RxNorm: 671805 1 Capsule(s) PO TID 05/27/2017 06/02/2017 Inactive Lexapro 10 mg tablet RxNorm: 558938 1 Tablet(s) PO daily 05/27/2017 08/25/2017 Inactive hydrocodone 5 mg-acetaminophen 325 mg tablet RxNorm: 948391 1 Tablet(s) PO TID 05/27/2017 06/23/2017 Inactive hydrocodone 7.5 mg-acetaminophen 325 mg tablet RxNorm: 592299 1 Tablet(s) PO TID as needed 05/13/2017 05/25/2017 Inactive hydrocodone 7.5 mg-acetaminophen 325 mg tablet RxNorm: 833555 1 Tablet(s) PO TID as needed 05/13/2017 05/12/2017 Inactive cyclobenzaprine 5 mg tablet RxNorm: 540768 TAKE ONE TABLET BY MOUTH THREE TIMES DAILY NEEDED FOR MUSCLE SPASM 05/01/2017 05/05/2017 Inactive hydrocodone 5 mg-acetaminophen 325 mg tablet RxNorm: 282848 1 Tablet(s) PO TID as needed 04/24/2017 05/12/2017 Inactive cyclobenzaprine 5 mg tablet RxNorm: 673705 1 Tablet(s) PO TID as needed muscle spasms 04/24/2017 04/28/2017 Inactive diazepam 10 mg tablet RxNorm: 297740 1 Tablet(s) PO TID as needed anxiety 02/22/2017 04/19/2017 Inactive norethindrone acetate 1 mg-ethinyl estradiol 20 mcg tablet RxNorm: 8766649 1 Tablet(s) PO daily 12/18/2016 07/15/2017 Inactive EEMT 1.25 mg-2.5 mg tablet RxNorm: 038718 1 Tablet(s) PO daily 12/06/2016 03/05/2017 Inactive EEMT 1.25 mg-2.5 mg tablet RxNorm: 978740 1 Tablet(s) PO daily 12/06/2016 12/05/2016 Inactive Lexapro 10 mg tablet RxNorm: 676037 1 Tablet(s) PO daily 12/06/2016 05/04/2017 Inactive diazepam 10 mg tablet RxNorm: 284088 1 Tablet(s) PO TID 11/09/2016 12/07/2016 Inactive phentermine 37.5 mg tablet RxNorm: 974533 1 Tablet(s) PO daily 10/25/2016 08/23/2017 Inactive EEMT 1.25 mg-2.5 mg tablet RxNorm: 408352 1 Tablet(s) PO daily 10/25/2016 12/05/2016 Inactive phentermine 37.5 mg tablet RxNorm: 295667 1 Tablet(s) PO daily 09/20/2016 10/24/2016 Inactive Lexapro 10 mg tablet RxNorm: 085674 1 Tablet(s) PO daily 07/10/2016 12/05/2016 Inactive Lexapro 10 mg tablet RxNorm: 764276 1 Tablet(s) PO daily 06/12/2016 07/09/2016 Inactive norethindrone acetate 1 mg-ethinyl estradiol 20 mcg tablet RxNorm: 7184507 1 Tablet(s) PO daily 06/12/2016 12/17/2016 Inactive hydrocodone 10 mg-acetaminophen 325 mg tablet RxNorm: 454380 1 Tablet(s) PO TID No Start Date 05/12/2017 Inactive phentermine 37.5 mg tablet RxNorm: 073140 1 Tablet(s) PO daily No Start Date 09/19/2016 Inactive norethindrone acetate 1 mg-ethinyl estradiol 20 mcg tablet RxNorm: 3155655 1 Tablet(s) PO daily No Start Date 06/11/2016 Inactive EEMT 1.25 mg-2.5 mg tablet RxNorm: 428952 1 Tablet(s) PO daily No Start Date [...] 1: 116/74 Code: 8480-6 BMI: 31.5 Code: 41546-0 Heart Rate 1: 74 bpm Height: 5'2" SpO2: 95% Weight: 172 lbs 10/21/2017 Blood Pressure 1: 136/82 Code: 8480-6 BMI: 30.4 Code: 89788-4 Heart Rate 1: 79 bpm Height: 5'2" SpO2: 97% Weight: 166 lbs 09/26/2017 Blood Pressure 1: 122/80 Code: 8480-6 BMI: 30.4 Code: 38437-1 Heart Rate 1: 63 bpm Height: 5'2" SpO2: 98% Weight: 166 lbs 08/27/2017 Blood Pressure 1: 132/70 Code: 8480-6 BMI: 30.7 Code: 36710-6 Heart Rate 1: 89 bpm Height: 5'2" SpO2: 98% Weight: 168 lbs 05/27/2017 Blood Pressure 1: 132/72 Code: 8480-6 BMI: 28.9 Code: 96425-5 Heart Rate 1: 72 bpm Height: 5'2" SpO2: 98% Weight: 158 lbs 04/24/2017 Blood Pressure 1: 140/76 Code: 8480-6 BMI: 29.3 Code: 33999-2 Heart Rate 1: 77 bpm Height: 5'2" SpO2: 97% Weight: 160 lbs 03/27/2017 Blood Pressure 1: 128/74 Code: 8480-6 BMI: 29.1 Code: 11734-7 Heart Rate 1: 74 bpm Height: 5'2" SpO2: 98% Temperature: 36.8 (C) / 98.3 (F) Weight: 159 lbs 10/25/2016 Blood Pressure 1: 116/74 Code: 8480-6 BMI: 28.9 Code: 58356-2 Heart Rate 1: 68 bpm Height: 5'2" SpO2: 99% Weight: 158 lbs 09/20/2016 Blood Pressure 1: 116/70 Code: 8480-6 Heart Rate 1: 72 bpm Weight: 150 lbs 08/24/2016 Blood Pressure 1: 118/62 Code: 8480-6 BMI: 27.6 Code: 30132-6 Heart Rate 1: 63 bpm Height: 5'2" SpO2: 99% Weight: 151 lbs 06/12/2016 Blood Pressure 1: 122/74 Code: 8480-6 BMI: 26.9 Code: 44827-2 Heart Rate 1: 52 bpm Height: 5'2" [...] data Encounters Encounter Performer Location Codes Date 49714 EST. PATIENT, LEVEL III Diagnosis: Chronic pain syndrome[ICD10: G89.4] Diagnosis: Overweight[ICD10: E66.3] Veda Jama MD, [facility] CPT-4: 63655 12/09/2017 06593 EST. PATIENT, LEVEL III Diagnosis: Chronic pain syndrome[ICD10: G89.4] Diagnosis: Overweight[ICD10: E66.3] Veda Jama MD, [facility] CPT-4: 97697 10/21/2017 ([id number]) Miscellaneous no charge Diagnosis: Overweight[ICD10: E66.3] Juju Jama MD, [facility] CPT-4: 84505 09/26/2017 05379 EST. PATIENT, LEVEL III Diagnosis: Chronic pain syndrome[ICD10: G89.4] Diagnosis: Overweight[ICD10: E66.3] Veda Jama MD, [facility] CPT-4: 81053 08/27/2017 57806 EST. PATIENT, LEVEL III Diagnosis: Chronic pain syndrome[ICD10: G89.4] Diagnosis: Generalized anxiety disorder[ICD10: F41.1] Diagnosis: Major depressive disorder, single episode, moderate[ICD10: F32.1] Diagnosis: Cellulitis of right lower limb[ICD10: L03.115] Veda Jama MD, [facility] CPT-4: 72704 05/27/2017 ([id number]) 17885 EST. PATIENT, LEVEL IV Diagnosis: Generalized anxiety disorder[ICD10: F41.1] Diagnosis: Major depressive disorder, single episode, moderate[ICD10: F32.1] Diagnosis: Menopausal and female climacteric states[ICD10: N95.1] Diagnosis: Chronic pain syndrome[ICD10: G89.4] [facility] CPT- 4: 36384 04/24/2017 ([id number]) PREV VISIT EST AGE 18-39 Diagnosis: Encounter for gynecological examination (general) (routine) without abnormal findings[ICD10: Z01.419] Veda Jama MD, [facility] CPT-4: 42048 03/27/2017 ([id number]) 49555 EST. PATIENT, LEVEL III Diagnosis: Overweight[ICD10: E66.3] [facility] CPT-4: 45559 10/25/2016 ([id number]) Miscellaneous no charge Diagnosis: Overweight[ICD10: E66.3] [facility] CPT-4: 44226 09/20/2016 [id number] EST. PATIENT, LEVEL IV Diagnosis: Other fatigue[ICD10: R53.83] Diagnosis: Overweight[ICD10: E66.3] Diagnosis: Generalized anxiety disorder[ICD10: F41.1] [facility] CPT-4: 06824 08/24/2016 ([id number]) OFFICE VISIT, NEW - LEVEL 4 Diagnosis: Generalized anxiety disorder[ICD10: F41.1] Diagnosis: Major depressive disorder, single episode, moderate[ICD10: F32.1] [facility] CPT-4: 44291 06/12/2016 Plan of Care Planned Activity Notes [...] weight check. 10/21/2017 Appointment: Veda Duenas WPtel: [address] [place], [place] [address] (15 min) Moderate 10/21/2017 Patient Education: Patient Medication Summary Completed 10/21/2017 Patient Education: Obesity Completed 10/21/2017 Appointment: Nurse Visit 09/26/2017 Patient Education: Patient Medication Summary Completed 09/26/2017 Appointment: Veda Duenas WPtel: [phone] [facility] (30 min) Complex 08/30/2017 Visit Plan: [...] discharge. 05/27/2017 [phone] [facility] 05/27/2017 Patient Education: [...] new RX. 04/24/2017 Appointment: Veda Duenas WPtel: [facility] (30 min) Complex 04/24/2017 Patient Education: [...] per pharmacy. 03/27/2017 Appointment: Veda Duenas WPtel: [facility] [facility] 03/27/2017 Patient Education: Patient Medication Summary Completed 03/27/2017 Care Plan: BMI Above normal followup SELF-MGMT EDUC & TRAIN 1 PT Pending 11/07/2016 Visit Plan: Obesity - chronic issue with this patient. The pt has been counseled about diet changes, calorie restriction, and need to exercise. Pt will RTC in one month for weight check. 10/25/2016 Appointment: Veda Duenas WPtel: [facility]5 [facility] (15 min) Moderate 10/25/2016 Patient [...] check. 08/24/2016 Appointment: Radha Mcgowan WPtel: [facility]5 [phone] (30 min) Complex 08/24/2016 Appointment: Radha Mcgowan WPtel: [facility]5 [phone] (30 min) Complex 08/24/2016 Appointment: Radha Mcgowan WPtel: [address] [place], [place] [phone] (30 min) Complex 08/24/2016 Patient Education: Patient [...] patient. 06/12/2016 Appointment: [facility] Mcgowan [phone] [place] New Patient 06/12/2016 Patient Education: Patient [...]
--- OUTSIDE RECORDS SUMMARY | 2019-07-01 06:54 | XMS REPORT | Continuity of Care Document ---
Author Organization Unknown Address Unknown Phone Unavailable Allergies Active Description Code Type Severity Reaction Onset Reported/Identified Relationship to Patient Clinical Status Yes NKANo Known Allergies NKA Miscellaneous Allergy Unknown N/A 07/18/2007 Yes No Known Drug Allergies [id number] Drug Allergy Unknown N/A 06/25/2019 Medications There is no data. Problems Date Dx Coded Attending Type Code Diagnosis Diagnosed By 02/18/2013 Ot 718.87 JT DERANGEMENT NEC-ANKLE 02/18/2013 Ot 719.47 JOINT PAIN-ANKLE 02/18/2013 Ot V15.59 PERSONAL HISTORY OF OTHER INJURY 02/18/2013 Ot V57.1 PHYSICAL THERAPY NEC 06/26/2013 JAMISON CROWE MD Ot 530.11 REFLUX ESOPHAGITIS 06/26/2013 JAMISON CROWE MD Ot 535.50 UNSP GASTRITIS GASTRODUODENITIS W/O ME 06/26/2013 JAMISON CROWE MD Ot 535.60 DUODENITIS, WITHOUT MENTION OF HEMORRHAG 06/26/2013 JAMISON CROWE MD Ot 553.3 DIAPHRAGMATIC HERNIA 09/24/2013 YESSENIA HILLIARD APRN Ot 708.9 URTICARIA NOS 05/01/2014 MAREK DOW MD Ot 543.9 DISEASES OF APPENDIX NEC 05/01/2014 MAREK DOW MD Ot 617.0 UTERINE ENDOMETRIOSIS 05/01/2014 MAREK DOW MD Ot 620.1 CORPUS LUTEUM CYST 05/01/2014 MAREK DOW MD Ot 620.2 OVARIAN CYST NEC/NOS 05/21/2015 MAREK DOW MD Ot V76.12 01/09/2016 Ot V70.0 01/09/2016 JAMISON CROWE MD Ot V72.84 01/09/2016 MAREK DOW MD Ot 285.9 01/09/2016 MAREK DOW MD Ot 617.9 01/09/2016 VICTOR M POTTS, MAREK Lopez Ot 625.9 01/09/2016 MAREK DOW MD Ot V72.63 01/09/2016 MAREK DOW MD Ot V74.8 01/09/2016 MAREK DOW MD Ot V76.12 02/03/2016 Ot V70.0 02/03/2016 JAMISON CROWE MD Ot V72.84 02/03/2016 VICTOR M POTTS, MAREK Lopez Ot 285.9 02/03/2016 VICTOR M POTTS, MAREK Lopez Ot 617.9 02/03/2016 VICTOR M POTTS, MAREK Lopez Ot 625.9 02/03/2016 VICTOR M POTTS, MAREK Lopez Ot V72.63 02/03/2016 MAREK DOW MD Ot V74.8 02/03/2016 MAREK DOW MD Ot V76.12 04/03/2016 Ot V70.0 ROUTINE MEDICAL EXAM 04/03/2016 AMRITA POTTS, JAMISON Ot V72.84 EXAM PRE-OPERATIVE NOS 04/03/2016 VICTOR M POTTS, MAREK Lopez Ot 285.9 ANEMIA NOS 04/03/2016 MAREK DOW MD Ot 617.9 ENDOMETRIOSIS NOS 04/03/2016 MAREK DOW MD Ot 625.9 FEM GENITAL SYMPTOMS NOS 04/03/2016 MAREK DOW MD Ot V72.63 PRE-PROCEDURAL LABORATORY EXAMINATION 04/03/2016 VICTOR M POTTS, MAREK Lopez Ot V74.8 SCREEN-BACTERIAL DIS NEC 04/03/2016 MAREK DOW MD Ot V76.12 OT SCREEN MAMMO-MALIGN NEOPLASM OF CHAIM 04/04/2016 ADRIANA POTTS, TESSY Crawley Ot M25.571 PAIN IN RIGHT ANKLE AND JOINTS OF RIGHT 04/04/2016 TESSY WRIGHT MD Ot S82.401S UNSPECIFIED FRACTURE OF SHAFT OF RIGHT F 04/04/2016 TESSY WRIGHT MD Ot S92.011S DISPLACED FRACTURE OF BODY OF RIGHT CALC 10/28/2018 AMRITA POTTS, JAMISON Ot V72.84 EXAM PRE-OPERATIVE NOS 10/28/2018 MAREK DOW MD Ot 285.9 ANEMIA NOS 10/28/2018 MAREK DOW MD Ot 617.9 ENDOMETRIOSIS NOS 10/28/2018 MAREK DOW MD Ot 625.9 FEM GENITAL SYMPTOMS NOS 10/28/2018 MAREK DOW MD Ot V72.63 PRE-PROCEDURAL LABORATORY EXAMINATION 10/28/2018 MAREK DOW MD, Ot V74.8 SCREEN-BACTERIAL DIS NEC 10/28/2018 MAREK DOW MD, Ot V76.12 OTH SCREEN MAMMO-MALIGN NEOPLASM OF CHAIM 10/28/2018 TESSY WRIGHT MD Ot M25.571 PAIN IN RIGHT ANKLE AND JOINTS OF RIGHT 10/28/2018 TESSY WRIGHT MD Ot S82.401S UNSPECIFIED FRACTURE OF SHAFT OF RIGHT F 10/28/2018 TESSY WRIGHT MD, Ot S92.011S DISPLACED FRACTURE OF BODY OF RIGHT CALC 10/29/2018 CARLA AZUL APRN Ot E78.5 HYPERLIPIDEMIA, UNSPECIFIED 10/29/2018 CARLA AZUL APRN Ot Z00.00 ENCNTR FOR GENERAL ADULT MEDICAL EXAM W/ 04/14/2019 CARLA AZUL APRN Ot E78.5 HYPERLIPIDEMIA, UNSPECIFIED 04/14/2019 CARLA AZUL APRN Ot Z00.00 ENCNTR FOR GENERAL ADULT MEDICAL EXAM W/ 04/30/2019 CARLA AZUL APRN Ot E78.5 HYPERLIPIDEMIA, UNSPECIFIED 04/30/2019 CARLA AZUL APRN Ot Z00.00 ENCNTR FOR GENERAL ADULT MEDICAL EXAM W/ Procedures There is no data. Results Test Result Range Complete blood count (CBC) with automated white blood cell (WBC) differential - 10/28/18 08:10 Blood leukocytes automated count (number/volume) 4.8 10*3/uL 4.3-11.0 Blood erythrocytes automated count (number/volume) 4.17 10*6/uL 4.35-5.85 Venous blood hemoglobin measurement (mass/volume) 13.0 g/dL 11.5-16.0 Blood hematocrit (volume fraction) 38 % 35-52 Automated erythrocyte mean corpuscular volume 91 [foz_us] 80-99 Automated erythrocyte mean corpuscular hemoglobin (mass per erythrocyte) 31 pg 25-34 Automated erythrocyte mean corpuscular hemoglobin concentration measurement (mass/volume) 34 g/dL 32-36 Automated erythrocyte distribution width ratio 12.6 % 10.0- 14.5 Automated blood platelet count (count/volume) 298 10*3/uL 130-400 Automated blood platelet mean volume measurement 9.7 [foz_us] 7.4-10.4 Automated blood neutrophils/100 leukocytes 61 % 42-75 Automated blood lymphocytes/100 leukocytes 30 % 12-44 Blood monocytes/100 leukocytes 6 % 0-12 Automated blood eosinophils/100 leukocytes 2 % 0-10 Automated blood basophils/100 leukocytes 0 % 0-10 Blood neutrophils automated count (number/volume) 2.9 10*3 1.8-7.8 Blood lymphocytes automated count (number/volume) 1.4 10*3 1.0-4.0 Blood monocytes automated count (number/volume) 0.3 10*3 0.0- 1.0 Automated eosinophil count 0.1 10*3/uL 0.0-0.3 Automated blood basophil count (count/volume) 0.0 10*3/uL 0.0-0.1 Comprehensive metabolic panel - 10/28/18 08:10 Serum or plasma sodium measurement (moles/volume) 138 mmol/L 135-145 Serum or plasma potassium measurement (moles/volume) 4.0 mmol/L 3.6-5.0 Serum or plasma chloride measurement (moles/volume) 105 mmol/L 98-107 Carbon dioxide 23 mmol/L 21-32 Serum or plasma anion gap determination (moles/volume) 10 mmol/L 5-14 Serum or plasma urea nitrogen measurement (mass/volume) 10 mg/dL 7-18 Serum or plasma creatinine measurement (mass/volume) 0.67 mg/dL 0.60-1.30 Serum or plasma urea nitrogen/creatinine mass ratio 15 NRG Serum or plasma creatinine measurement with calculation of estimated glomerular filtration rate > NRG Serum or plasma glucose measurement (mass/volume) 98 mg/dL 70-105 Serum or plasma calcium measurement (mass/volume) 9.6 mg/dL 8.5-10.1 Serum or plasma total bilirubin measurement (mass/volume) 0.6 mg/dL 0.1-1.0 Serum or plasma alkaline phosphatase measurement (enzymatic activity/volume) 112 U/L 40-136 Serum or plasma aspartate aminotransferase measurement (enzymatic activity/volume) 16 U/L 5-34 Serum or plasma alanine aminotransferase measurement (enzymatic activity/volume) 8 U/L 0-55 Serum or plasma protein measurement (mass/volume) 7.4 g/dL 6.4-8.2 Serum or plasma albumin measurement (mass/volume) 4.3 g/dL 3.2-4.5 CALCIUM CORRECTED 9.4 mg/dL 8.5-10.1 Lipid 1996 panel - 10/28/18 08:10 Serum or plasma triglyceride measurement (mass/volume) 174 mg/dL <150 Serum or plasma cholesterol measurement (mass/volume) 280 mg/dL < 200 Serum or plasma cholesterol in HDL measurement (mass/volume) 58 mg/dL 40-60 Cholesterol in LDL [mass/volume] in serum or plasma by direct assay 202 mg/dL 1-129 Serum or plasma cholesterol in VLDL measurement (mass/volume) 35 mg/dL 5-40 Methicillin resistant Staphylococcus aureus (MRSA) screening culture - 06/25/19 10:40 Methicillin resistant Staphylococcus aureus (MRSA) screening culture NEG NRG Encounters ACCT No. Visit Date/Time Discharge Status Pt. Type Provider Facility Loc./Unit Complaint [id number] 06/25/2019 10:06:00 06/25/2019 14:53:00 DIS Outpatient KAMERON STEVENSON DPM [facility] PREOP POST TRAUMATIC OSTEOARTHRITIS RIGHT ANKLE [id number] 10/28/2018 08:03:00 10/28/2018 23:59:59 CLS Outpatient CARLA AZUL APRN [facility] LAB [id number] 04/03/2016 11:01:00 04/03/2016 23:59:59 CLS Outpatient TESSY WRIGHT MD [facility] RAD PAIN IN RT ANKLE AND JOINTS OF RT FOOT [id number] 05/05/2015 13:55:00 05/05/2015 23:59:59 CLS Outpatient MAREK DOW MD [facility] RAD SCREENING [id number] 04/30/2014 10:45:00 05/01/2014 12:15:00 DIS Outpatient MAREK DOW MD [facility] SDC CHRONIC PELVIC PAIN [id number] 04/27/2014 13:02:00 04/27/2014 23:59:59 CLS Outpatient MAREK DOW MD [facility] PREOP CHRONIC PELVIC PAIN [id number] 09/24/2013 15:25:00 09/24/2013 17:00:00 DIS Emergency HILLIARDYESSENIA STAFF FORESTER [facility] ER POSSIBLE ALLERGIC RXN [id number] 08/02/2013 15:03:00 08/02/2013 23:59:59 CLS Outpatient [id number] 06/26/2013 08:34:00 06/26/2013 12:25:00 DIS Outpatient JAMISON CROWE MD [facility] SDC REFLUX [id number] 06/24/2013 07:32:00 06/24/2013 23:59:59 CLS Outpatient JAMISON CROWE MD [facility] PREOP REFLUX [id number] 07/01/2019 08:00:00 PEN Preadmit KAMERON STEVENSON DPM POST TRAUMATIC OSTEOARTHRITIS RIGHT ANKLE [id number] 01/09/2016 14:42:00 Document Registration [id number] 02/12/2013 15:00:00 Document Registration [id number] 01/05/2013 08:39:00 Document Registration
[2019-07-01] MEDS ORDERED: ONDANSETRON 4 MG/2 ML (SDV) Z0FRAN IVP PRN (11:15)
[2019-07-01] MEDS ORDERED: morphine INJ 10 MG/ML 1ML (SYR OR VIAL) IVP ONE (11:15)
[2019-07-01] MEDS ORDERED: HYDROmorphone 2 MG/ML VIAL (DILAUDID) IV ONE (11:15)
--- NOTE | 2019-07-01 11:16 | Progress Note-Post Operative ---
Post-Operative Progess Note Surgeon (s)/Distribution Engineer (s) Surgeon KAMERON STEVENSON DPM Distribution Engineer: none Pre-Operative Diagnosis post tramatic right ankle Post-Operative Diagnosis same Procedure & Operative Findings Date of Procedure 07/01/19 Procedure Performed/Findings Total Ankle Replacement RLE, Gastroc Recession RLE, Removal of Hardware RLE Anesthesia Type GA Estimated Blood Loss Estimated blood loss (mL): Minimal Specimens/Packing Specimens Removed none Packing: None KAMERON STEVENSON DPM Jul 01, 2019 11:16
[2019-07-01] MEDS ORDERED: ONDANSETRON 4 MG (ZOFRAN) ORAL DISSOLVE TAB PO PRN (11:30)
[2019-07-01] MEDS ORDERED: BACLOFEN 10 MG (LIORESAL) TAB PO PRN (11:30)
[2019-07-01] MEDS: KETOROLAC 30 MG/ML VIAL IV SCH ×2 (11:30→17:33)
--- NOTE | 2019-07-01 12:10 | NUR ---
AR CARDENAS admitted to room 433-1, with an admitting diagnosis of POST TRAUMATIC OSTEOARTHRITIS ANKLE, on 07/01/19 from SURGERY via BED, accompanied by EXTRUSION SUPERVISOR. AR CARDENAS introduced to surroundings, call light, bed controls, phone, TV, temperature control, lights, meal times, smoking policy, visitor policy, side rail policy, bathrooms and showers. Patient Rights given to patient in the handbook. AR CARDENAS verbalizes understanding that [facility] is not responsible for the loss or damage to any personal effects or valuables that are kept in the patients possession during their hospitalization. The following Patient Care Plans were discussed with the PATIENT: Discharge Planning, SURGERY, OSTEOARTHRITIS, and KNOWLEDGE DEFICIT. AR CARDENAS verbalizes understanding of Interdisciplinary Patient Education. Patient and/or family were informed about the Rapid Response Team and its purpose.
--- NOTE | 2019-07-01 13:05 | Anesthesia-General Post-Op ---
General Patient Condition Mental Status/LOC: Same as Preop Cardiovascular: Satisfactory Nausea/Vomiting: Absent Respiratory: Satisfactory Pain: Controlled Complications: Absent Post Op Complications Complications None Follow Up Care/Instructions Patient Instructions None needed. Anesthesia/Patient Condition Patient Condition Patient is doing well, no complaints, stable vital signs, no apparent adverse anesthesia problems. No complications reported per nursing. MAGDY HARO CRNA Jul 01, 2019 13:05
[2019-07-01] MEDS: D5 1/2 NS 1000 ML IV SOLUTION 1,000 ML IV SCH (13:23)
--- NOTE | 2019-07-01 14:03 | Diagnostic Imaging Report ---
INDICATION: Fluoroscopy for right ankle replacement. FINDINGS: Fluoroscopy was provided in the OR during right ankle surgery. 179 seconds of fluoroscopy was utilized. Images demonstrate a lateral plate and screws transfixing the distal fibula. There are prostheses of the tibial plafond and talar dome. IMPRESSION: Fluoroscopy for right ankle surgery. Dictated by: Dictated on workstation # [id number]
[2019-07-01] MEDS ORDERED: morphine INJ 4 MG/ML 1 ML (VIAL/SYRINGE) IV PRN (14:15)
[2019-07-01] MEDS: ceFAZolin 2 GM IV Premixed 50 ML IV SCH ×2 (15:03→20:47)
--- NOTE | 2019-07-01 16:01 | Consultation - Hospitalist ---
HPI History of Present Illness: HPI/Chief Complaint Erica Higginbotham is a 39yoF with PMH of hyperlipidemia and back pain, who presented for a scheduled ankle surgery. She underwent the procedure today without issue. She denies any current complaints. She denies hypertension and diabetes. She is a non-smoker. She does not drink alcohol. She does not use illicit drugs. She lives and works in [place]. 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 She denies chest pain, dyspnea, abdominal pain, nausea, vomiting, diarrhea, constipation. Source: patient Exam Limitations: no limitations Date Seen 07/01/19 Attending Physician Harman Weaver Dpm PCP Juju Jama MD Referring Physician Harman Weaver Dpm Date of Admission Jul 01, 2019 at 05:57 Home Medications & Allergies Home Medications Reviewed patient Home Medication Reconciliation performed by pharmacy medication reconciliations driver license technician and/or nursing. Patients Allergies have been reviewed. Allergies Allergies Coded Allergies No Known Drug Allergies (Unverified06/25/19) Past Fkttpmg-Macrdp-Mbhczu Hx Past Med/Social Hx: Reviewed Nursing Past Med/Soc Hx Patient Social History Alcohol Use: Occasionally Uses Recreational Drug Use: No Smoking Status: Never a Smoker Physical Abuse Screen: No Sexual Abuse: No Recent Foreign Travel: No Contact w/other who traveled: No Recent Hopitalizations: No Recent Infectious Disease Expo: No Immunizations Up To Date Date of Influenza Vaccine: Aug 25, 2013 Seasonal Allergies Seasonal Allergies: No Past Medical History Cardiac: High Cholesterol Reproductive: Yes (CPP, ENDOMETRIOSIS) Sexually Transmitted Disease: No HIV/AIDS: No Musculoskeletal: Arthritis, Chronic Back Pain History of Blood Disorders: No Adverse Reaction to Blood [place]: No (N/A) Family History Cancer G8 SISTER Family history: Cardiovascular disease 19 FATHER Family history: Diabetes mellitus 19 FATHER Family history: Hypertension 19 FATHER Myocardial infarction 19 FATHER No Family History of: Alcoholism Congenital heart disease Congestive heart failure Dementia Family history: Alzheimer's disease Family history: Arthritis Family history: Asthma Family history: Breast disease Family history: Coronary thrombosis Family history: Gastrointestinal disease Family history: Thyroid disorder Hereditary disease History of - disorder History of - respiratory disease Kidney disease Parkinson's disease Prostate cancer Psychotic disorder Seizure disorder Stroke Review of Systems Constitutional: no symptoms reported EENTM: no symptoms reported Respiratory: No short of breath Cardiovascular: No chest pain Gastrointestinal: No abdominal pain, No diarrhea, No nausea, No vomiting Genitourinary: no symptoms reported Musculoskeletal: no symptoms reported Skin: no symptoms reported Psychiatric/Neurological: No Symptoms Reported Physical Exam Physical Exam Vital Signs Vital Signs - First Documented 07/01/19 07:00 Temp 98.4 Pulse 64 Resp 16 B/P (MAP) 135/84 Pulse Ox 98 O2 Delivery Room Air Capillary Refill : Less Than 3 Seconds Height, Weight, BMI Height: 5'2.00" Weight: 166lbs. 2.0oz. 75.318293ci; 30.4 BMI Method: General Appearance: No Apparent Distress, WD/WN, Obese HEENT: PERRL/EOMI Neck: Normal Inspection, Supple Respiratory: Lungs Clear, Normal Breath Sounds, No Respiratory Distress Cardiovascular: Regular Rate, Rhythm, No Edema, No Murmur Gastrointestinal: Normal Bowel Sounds, Non Tender, Soft Extremity: Normal Inspection, No Pedal Edema Neurologic/Psychiatric: Alert; No Disoriented Skin: Normal Color, Warm/Dry Results Results/Procedures Labs Patient resulted labs reviewed. Assessment/Plan Assessment and Plan Assess & Plan/Chief Complaint s/p right total ankle replacement and heel cord lengthening -Pain regimen ordered -Zofran as needed for nausea -General diet -Incentive spirometer ordered -Ambulation ordered -SCDs ordered HLD -Not adherent with her medication Clinical Quality Measures DVT/VTE Risk/Contraindication: Risk Factor Score Per Nursin RFS Level Per Nursing on Admit: 3=High SURINDER OSORIO MD Jul 01, 2019 16:01
[2019-07-02 00:12] VITALS: BP 123/76
[2019-07-02] MEDS: KETOROLAC 30 MG/ML VIAL IV SCH ×3 (00:20→11:28)
[2019-07-02 00:50] VITALS: BP 119/79
[2019-07-02] MEDS: D5 1/2 NS 1000 ML IV SOLUTION 1,000 ML IV SCH (02:38)
[2019-07-02 04:50] VITALS: BP 119/79
[2019-07-02 05:10] LABS: HEMOGLOBIN 10.9 G/DL (11.5-16.0); MEAN PLATELET VOLUME 10.4 FL (7.4-10.4); RED CELL DISTRIBUTION WIDTH 12.7 % (10.0-14.5); WHITE BLOOD COUNT 10.4 10^3/uL (4.3-11.0)
[2019-07-02 05:33] LABS: BUN/CREATININE RATIO 14; CARBON DIOXIDE 20 MMOL/L (21-32); CHLORIDE 105 MMOL/L (98-107); CREATININE SERUM 0.63 MG/DL (0.60-1.30); GFR ESTIMATED > 60; GLUCOSE 126 MG/DL (70-105); POTASSIUM 3.9 MMOL/L (3.6-5.0); SODIUM 137 MMOL/L (135-145)
[2019-07-02 08:00] VITALS: BP 115/74
--- NOTE | 2019-07-02 09:30 | Occ Therapy Progress Note ---
Therapy Progress Note SCREEN ONLY. per PT and NSG pt is indep in room with no safety concerns. This OT communicated with patient on role of OT/ purpose. pt stated she is indep and states no concerns for returning home. pt stated she maintains WBS with no difficult. d/c OT at this time. pt is safe to return home. LUIS CRUM OT Jul 02, 2019 09:30
--- NOTE | 2019-07-02 09:42 | Physical Therapy Progress Note ---
Therapy Progress Note Patient is up modified independent in room without difficulty. Established axillary crutches in use. Patient declined PT due to prior use and knowledge of NWB status right LE. No PT indicated. Thank you for this referral 1 visit ([phone]) TERRY BOLANOS PT Jul 02, 2019 09:41
--- NOTE | 2019-07-02 12:20 | Podiatry Progress Note ---
Standard Progress Note Progress Notes/Assess & Plan Date Seen by a Provider: Jul 02, 2019 Time Seen by a Provider: 12:10 Progress/Assessment & Plan Pt seen at bedside, doing well, pain is controlled, denies F/C/N/V. RLE- splint changed today, incisions well coapted, minimal sanguinous drainage noted, calves supple nontender. Final Diagnosis POD #1 TAR and gastroc recession RLE -NWB RLE -okay for D/C today -cont DVT prophylaxis KAMERON STEVENSON DPM Jul 02, 2019 12:20
[2019-07-02] MEDS ORDERED: OXYC-465 PO (12:24)
[2019-07-02 12:59] VITALS: BP 115/74
--- NOTE | 2019-07-02 13:31 | NUR ---
CM/SS, respond to consult. Visited with patient and her CJ. Patient plans home at discharge. DME: She has a knee walker and crutches for home use. Patient and spouse indicate no needs for discharge.
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
== END 2019-07-02 12:59 | disposition home or self-care (01) | DRG 469 ==
LOC: 4TH 05:57 → SURG 05:58 → 4TH 12:10
PROVIDERS: ADMIT Podiatrist; ATTEND Podiatrist
PROC: 0SRF0JA Replacement of Right Ankle Joint with Synthetic Substitute, Uncemented, Open Approach (ICD-10-PCS; principal; 2019-07-01 08:00)
PROC: 0JNN0ZZ Release Right Lower Leg Subcutaneous Tissue and Fascia, Open Approach (ICD-10-PCS; principal; 2019-07-01 08:00)
PROC: 0SPF04Z Removal of Internal Fixation Device from Right Ankle Joint, Open Approach (ICD-10-PCS; principal; 2019-07-01 08:00)
DX: M19.171 Post-traumatic osteoarthritis, right ankle and foot (principal); S92.001S Unspecified fracture of right calcaneus, sequela; S82.899 Other fracture of unspecified lower leg; E78.00 Pure hypercholesterolemia, unspecified; K44.9 Diaphragmatic hernia without obstruction or gangrene; E78.5 Hyperlipidemia, unspecified; M54.9 Dorsalgia, unspecified
CPT/HCPCS: 36415; 80048; 85027; 94664

== ENCOUNTER → 2020-03-30 | Outpatient (CLI) | payer OTHER ==
[~2020-03-30] MED LIST changes: +ACHD5005 PO; -HYDR-3812 PO; +OXYC-465 PO
[2020-03-30 07:44] LABS: BASOPHILS % (AUTO) 0 % (0-10); EOSINOPHILS # (AUTO) 0.1 10^3/uL (0.0-0.3); EOSINOPHILS % (AUTO) 1 % (0-10); HEMATOCRIT 38 % (35-52); HEMOGLOBIN 12.8 G/DL (11.5-16.0); LYMPHOCYTES # (AUTO) 1.4 X 10^3 (1.0-4.0); LYMPHOCYTES % (AUTO) 23 % (12-44); MEAN CORPUSCULAR HEMOGLOBIN 31 PG (25-34); MEAN CORPUSCULAR HGB CONC 33 G/DL (32-36); MEAN CORPUSCULAR VOLUME 93 FL (80-99); MEAN PLATELET VOLUME 9.9 FL (7.4-10.4); MONOCYTES # (AUTO) 0.5 X 10^3 (0.0-1.0); MONOCYTES % (AUTO) 8 % (0-12); NEUTROPHILS # (AUTO) 4.2 X 10^3 (1.8-7.8); NEUTROPHILS % (AUTO) 68 % (42-75); PLATELET COUNT 297 10^3/uL (130-400); RED CELL DISTRIBUTION WIDTH 12.7 % (10.0-14.5); WHITE BLOOD COUNT 6.2 10^3/uL (4.3-11.0)
[2020-03-30 07:50] LABS: CHLORIDE 106 MMOL/L (98-107); POTASSIUM 3.9 MMOL/L (3.6-5.0); SODIUM 140 MMOL/L (135-145)
[2020-03-30 07:51] LABS: ALBUMIN 4.2 GM/DL (3.2-4.5)
[2020-03-30 07:52] LABS: CALCIUM 8.9 MG/DL (8.5-10.1); TRIGLYCERIDES 133 MG/DL (<150); VLDL CHOLESTEROL 27 MG/DL (5-40)
[2020-03-30 07:53] LABS: GLUCOSE 92 MG/DL (70-105); TOTAL PROTEIN 7.3 GM/DL (6.4-8.2)
[2020-03-30 07:54] LABS: CARBON DIOXIDE 23 MMOL/L (21-32)
[2020-03-30 07:55] LABS: BILIRUBIN,TOTAL 0.6 MG/DL (0.1-1.0)
[2020-03-30 07:57] LABS: ALKALINE PHOSPHATASE 88 U/L (40-136); CHOLESTEROL 275 MG/DL (< 200); GFR ESTIMATED > 60
[2020-03-30 07:58] LABS: BUN/CREATININE RATIO 14
[2020-03-30 07:59] LABS: HDL CHOLESTEROL 58 MG/DL (40-60)
[2020-03-30 08:00] LABS: ALANINE AMINOTRANSFERASE < 6 U/L (0-55)
== END ==
LOC: LAB 07:21
PROVIDERS: ATTEND Nurse Practitioner Family
DX: Z00.00 Encounter for general adult medical examination without abnormal findings (principal); E78.5 Hyperlipidemia, unspecified
CPT/HCPCS: 36415; 80053; 80061; 84443; 85025

== ENCOUNTER → 2020-09-29 | Outpatient (CLI) | payer OTHER ==
[~2020-09-29] MED LIST changes: -OXYC-465 PO; +OXYC-556 PO
[2020-09-29 08:42] LABS: CHOLESTEROL 272 MG/DL (< 200); HDL CHOLESTEROL 74 MG/DL (40-60)
[2020-09-29 09:15] LABS: TRIGLYCERIDES 170 MG/DL (<150); VLDL CHOLESTEROL 34 MG/DL (5-40)
== END ==
LOC: LAB 08:03
PROVIDERS: ATTEND Nurse Practitioner Family
DX: I10 Essential (primary) hypertension (principal)
CPT/HCPCS: 36415; 80061

== ENCOUNTER → 2021-06-12 | Outpatient (CLI) | payer OTHER ==
--- NOTE | 2021-06-12 12:07 | Diagnostic Imaging Report ---
EXAMINATION: US Lower Extremity Venous Duplex Left. TECHNIQUE: Multiple real-time grayscale images were obtained over the left lower extremity in various projections. Additional spectral analysis and color Doppler duplex images were also obtained. HISTORY: Swelling COMPARISON: None available. FINDINGS: Left: There is normal augmentation, flow, compressibility seen within the right common femoral, proximal, mid superficial femoral veins. There is occlusive thrombus seen within the distal right superficial femoral, popliteal, peroneal, posterior tibial veins. IMPRESSION: 1. Occlusive thrombus of the right distal superficial femoral, popliteal, peroneal, and posterior tibial veins. Critical finding. Dictated by: Dictated on workstation # [id number]
== END ==
LOC: RAD 11:00
PROVIDERS: ATTEND Nurse Practitioner Family
DX: I82.412 Acute embolism and thrombosis of left femoral vein (principal); I82.432 Acute embolism and thrombosis of left popliteal vein; I82.452 Acute embolism and thrombosis of left peroneal vein; I82.442 Acute embolism and thrombosis of left tibial vein

== ENCOUNTER → 2021-12-18 | Outpatient (CLI) | payer OTHER ==
[2021-12-18 08:41] LABS: BASOPHILS # (AUTO) 0.1 10^3/uL (0.0-0.1); BASOPHILS % (AUTO) 1 % (0-10); EOSINOPHILS # (AUTO) 0.1 10^3/uL (0.0-0.3); EOSINOPHILS % (AUTO) 2 % (0-10); HEMATOCRIT 40 % (35-52); HEMOGLOBIN 13.4 g/dL (11.5-16.0); LYMPHOCYTES # (AUTO) 1.6 10^3/uL (1.0-4.0); LYMPHOCYTES % (AUTO) 31 % (12-44); MEAN CORPUSCULAR HEMOGLOBIN 30 pg (25-34); MEAN CORPUSCULAR HGB CONC 33 g/dL (32-36); MEAN CORPUSCULAR VOLUME 90 fL (80-99); MEAN PLATELET VOLUME 10.2 fL (9.0-12.2); MONOCYTES # (AUTO) 0.4 10^3/uL (0.0-1.0); MONOCYTES % (AUTO) 8 % (0-12); NEUTROPHILS # (AUTO) 3.1 10^3/uL (1.8-7.8); NEUTROPHILS % (AUTO) 58 % (42-75); PLATELET COUNT 268 10^3/uL (130-400); WHITE BLOOD COUNT 5.3 10^3/uL (4.3-11.0)
[2021-12-18 08:44] LABS: ALBUMIN 4.3 GM/DL (3.2-4.5); BILIRUBIN,TOTAL 0.6 MG/DL (0.1-1.0); CALCIUM 9.5 MG/DL (8.5-10.1); CREATININE SERUM 0.66 MG/DL (0.60-1.30); POTASSIUM 3.8 MMOL/L (3.6-5.0); TOTAL PROTEIN 7.1 GM/DL (6.4-8.2)
== END ==
LOC: LAB 08:01
PROVIDERS: ATTEND Nurse Practitioner Family
DX: Z00.00 Encounter for general adult medical examination without abnormal findings (principal)
CPT/HCPCS: 36415; 80053; 80061; 84443; 85025

== ENCOUNTER → 2021-12-18 | Outpatient (CLI) | payer OTHER ==
--- NOTE | 2021-12-18 12:51 | Diagnostic Imaging Report ---
PROCEDURE: US left lower extremity venous. TECHNIQUE: Multiple real-time grayscale images were obtained over the left lower extremity in various projections. Additional duplex Doppler and color Doppler images were also obtained. INDICATION: Follow-up left lower extremity DVT. Correlation is made with prior venous Doppler from 06/12/2021. The common femoral vein as well as the upper and mid superficial femoral vein are patent. There is partial thrombus identified in the lower superficial femoral vein and popliteal vein. Calf veins appear to be patent. IMPRESSION: Partially occlusive thrombus in the lower superficial femoral vein and popliteal vein. Dictated by: Dictated on workstation # [id number]
== END ==
LOC: RAD 11:47
PROVIDERS: ATTEND Nurse Practitioner Family
DX: Z00.00 Encounter for general adult medical examination without abnormal findings (principal); I82.812 Embolism and thrombosis of superficial veins of left lower extremity; I82.412 Acute embolism and thrombosis of left femoral vein; I82.432 Acute embolism and thrombosis of left popliteal vein

== ENCOUNTER → 2022-03-16 | Outpatient (CLI) | payer OTHER ==
--- NOTE | 2022-03-16 12:23 | Diagnostic Imaging Report ---
PROCEDURE: US left lower extremity venous. TECHNIQUE: Multiple real-time grayscale images were obtained over the left lower extremity in various projections. Additional duplex Doppler and color Doppler images were also obtained. INDICATION: DVT. Study is compared with exam 12/18/2021. FINDINGS: There is unchanged chronic recanalized thrombus and/or some scarring and thickening of the venous mckenna at the level of the distal superficial femoral and popliteal veins this is unchanged from the prior. No occlusive venous thrombus and no adverse development or evidence for propagation of the abnormality. Proximally there was normal compressibility and color flow with normal waveforms. IMPRESSION: Unchanged from an exam 12/18/2021. There is either partial thrombus chronically recannulated at the distal superficial femoral and proximal popliteal vein versus area of the venous wall scarring and thickening. No new abnormality. No occlusive clot. No adverse change. Dictated by: Dictated on workstation # [id number]
== END ==
LOC: RAD 08:45
PROVIDERS: ATTEND Internal Medicine Hematology & Oncology
DX: I82.90 Acute embolism and thrombosis of unspecified vein (principal)

== ENCOUNTER → 2022-08-22 | Outpatient (CLI) | payer OTHER | LOC: LAB 08:46 | PROVIDERS: ATTEND Family Medicine | DX: Z01.89 Encounter for other specified special examinations (principal) ==

== ENCOUNTER → 2022-08-23 | Outpatient (CLI) | payer OTHER ==
[2022-08-23 09:38] LABS: ALBUMIN 4.2 GM/DL (3.2-4.5); BILIRUBIN,TOTAL 0.5 MG/DL (0.1-1.0); CALCIUM 9.3 MG/DL (8.5-10.1); CREATININE SERUM 0.75 MG/DL (0.60-1.30); POTASSIUM 3.5 MMOL/L (3.6-5.0); TOTAL PROTEIN 7.1 GM/DL (6.4-8.2)
== END ==
LOC: LAB 09:01
PROVIDERS: ATTEND Family Medicine
DX: E78.2 Mixed hyperlipidemia (principal)
CPT/HCPCS: 36415; 80053; 80061

== ENCOUNTER → 2023-05-07 | Outpatient (CLI) | payer BC, OTHER ==
--- NOTE | 2023-05-07 14:37 | Diagnostic Imaging Report ---
PROCEDURE: US left lower extremity venous. TECHNIQUE: Multiple real-time grayscale images were obtained over the left lower extremity in various projections. Additional duplex Doppler and color Doppler images were also obtained. INDICATION: Left leg pain. FINDINGS: Left common femoral and superficial femoral veins are patent. There is a small amount of nonocclusive thrombus in the left popliteal vein. Calf veins are patent. No fluid collections are seen. IMPRESSION: Nonocclusive DVT in the left popliteal vein. Dictated by: Dictated on workstation # [id number]
== END ==
LOC: RAD 11:09
PROVIDERS: ATTEND Physician Assistant
DX: I82.432 Acute embolism and thrombosis of left popliteal vein (principal); D68.59 Other primary thrombophilia

== ENCOUNTER → 2023-10-29 | Outpatient (CLI) | payer BC ==
--- NOTE | 2023-10-29 14:10 | Diagnostic Imaging Report ---
INDICATION: Left leg pain, history of deep vein thrombosis. TECHNIQUE: Left leg venous Doppler study performed in the routine fashion with color flow Doppler and waveform analysis. FINDINGS: The left common femoral vein and profunda femoris vein and SFV are patent and compressible. There is nonocclusive echogenic material in the left popliteal vein, compatible with chronic thrombus. The appearance was similar on 05/07/2023. IMPRESSION: Chronic nonocclusive thrombus in the left popliteal vein with remaining structures unremarkable. Dictated by: Dictated on workstation # [id number]
== END ==
LOC: RAD 12:56
PROVIDERS: ATTEND Physician Assistant
DX: I82.432 Acute embolism and thrombosis of left popliteal vein (principal)